=== PATIENT | male | born 1990 | race Caucasian/White ===

== ENCOUNTER 2023-10-26 13:28 | Inpatient (IN) | payer OTHER ==
[2023-10-26] MEDS ORDERED: NA CHLORIDE 0.9% 1,000 ML ONE (14:38)
[2023-10-26] MEDS ORDERED: FAMOTIDINE 20 MG/2 ML VIAL IV ONE (14:38)
--- NOTE | 2023-10-26 14:45 | RAD REPORT ---
EXAM DESCRIPTION: RAD - Chest Single View - 10/26/2023 2:28 pm CLINICAL HISTORY: COUGH Chest pain. COMPARISON: No comparisons FINDINGS: Portable technique limits examination quality. Mildly prominent interstitial lung markings are nonspecific. This can be seen in interstitial edema o r viral infection. Cardiac size is mildly prominent. No displaced fractures.
[2023-10-26 15:03] LABS: Absolute Lymphocytes (CBC) 1.9 K/uL (0.7-4.9); Hematocrit 26.2 % (39.6-49.0); Lymphocytes % 42.5 % (15.3-44.8); MPV 7.7 fL (7.6-11.3); Platelets 482 thou/uL (152-406); RBC Red Blood Cell Count 3.44 M/uL (4.33-5.43)
[2023-10-26 15:15] LABS: Protime INR 1.83
--- NOTE | 2023-10-26 15:17 | RAD REPORT ---
EXAM DESCRIPTION: CT - Head C Spine Cap Pedrito Koenig - 10/26/2023 2:58 pm CLINICAL HISTORY: Trauma, head and neck injury. Chest, abdomen and pelvis pain. abd pain , weakness;Weakness COMPARISON: Chest Single View dated 10/26/2023 TECHNIQUE: CT head without contrast. CT cervical spine without contrast with coronal and sagittal reformatted images. CT chest, abdomen and pelvis with IV contrast (approximately 100 mL nonionic IV contrast) with portillo l and sagittal reformatted images of the spine. All CT scans are performed using dose optimization technique as appropriate and may include automated exposure control or mA/KV adjustment according to patient size. FINDINGS: CT HEAD WITHOUT CONTRAST: No intracranial hemorrhage, hydrocephalus or extra-axial fluid collection. No areas of brain edema o r midline shift. The paranasal sinuses and mastoids are clear. The calvarium is intact. CT CERVICAL SPINE WITHOUT CONTRAST: No fracture or subluxation. The prevertebral soft tissues are normal in thickness. CT CHEST, ABDOMEN, PELVIS WITH CONTRAST: Ill-defined opacity measuring 3 cm in the right apex with mild adjacent pleural thickening.The lungs are otherwise clear.No pneumothorax or pericardial/pleural fluid. No evidence of intra-abdominal visceral injury, free fluid or free air. Cholelithiasis. No concerning pelvic findings. No fractures. IMPRESSION: Negative for acute traumatic findings. Ill-defined opacity is present in the right apex measuring 3 cm with adjacent pleural thickening. Thi s could be infectious or neoplastic in etiology. Advise follow-up CT chest in 3 months for monitoring .
[2023-10-26 15:21] LABS: Bilirubin Direct 0.2 mg/dL (0-0.2); Bilirubin Indirect, Calculated 0.5 mg/dL (0.2-0.8); Bilirubin Total 0.7 mg/dL (0.2-1.0); Magnesium 2.2 mg/dL (1.6-2.4); Potassium 3.9 mEq/L (3.5-5.1); Protein, Total 9.8 g/dL (6.4-8.2)
[2023-10-26] MEDS ORDERED: ONDANSETRON 4 MG/2 ML VIAL ONE (15:35)
[2023-10-26] MEDS ORDERED: MORPHINE 4 MG/ML SYR ONE (15:36)
[2023-10-26 15:42] LABS: Specific Gravity 1.023 (1.005-1.030); Urine Bacteria None Seen /HPF (<20); Urine Bilirubin NEGATIVE (Negative); Urine Blood 1+ (Negative); Urine Clarity Clear (Clear); Urine Color Yellow (Yellow); Urine Crystals Unidentified Few /HPF (None Seen); Urine Glucose NEGATIVE (Negative); Urine Mucus Slight /HPF (None Seen); Urine Protein TRACE (Negative); Urine Urobilinogen Normal (Normal)
[2023-10-26 16:02] LABS: SARS-COV-2 RT PCR NEGATIVE (NEGATIVE)
[2023-10-26] MEDS ORDERED: NA CHLORIDE 0.9% 100 ML ONE (16:31)
[2023-10-26] MEDS ORDERED: CEFEPIME 1 GM/VIAL ONE (16:31)
--- NOTE | 2023-10-26 16:36 | EDPHYS ---
Physician Documentation [facility] Name: Abel Maria Age: 33 yrs Sex: Male : 1990 Arrival Date: 10/26/2023 Time: 13:28 Bed 6 Private MD: ED Physician Castillo Camacho HPI: 10/26 16:23 This 33 yrs old Male presents to ER via EMS with complaints of GI Bleeding, adriel Syncope. 16:23 The patient presents to the emergency department with rectal bleeding, a small amount. adriel Onset: The symptoms/episode began/occurred today. Abdominal pain: none is appreciated. Historical: - Allergies: 14:26 No Known Allergies; nj1 - PMHx: 14:26 Congenital neutropenia; Sleep apnea; nj1 - Immunization history:: Client reports receiving the 2nd dose of the Covid vaccine. - Social history:: Smoking status: Patient denies any tobacco usage or history of. ROS: 16:24 Constitutional: Negative for fever, chills, and weight loss, Eyes: Negative for injury, adriel pain, redness, and discharge, ENT: Negative for injury, pain, and discharge, Neck: Negative for injury, pain, and swelling, Cardiovascular: Negative for chest pain, palpitations, and edema, Respiratory: Negative for shortness of breath, cough, wheezing, and pleuritic chest pain, Abdomen/GI: Negative for abdominal pain, nausea, vomiting, diarrhea, and constipation, : Negative for injury, bleeding, discharge, and swelling, Psych: Negative for depression, anxiety, suicide ideation, homicidal ideation, and hallucinations, Allergy/Immunology: Negative for hives, rash, and allergies, Endocrine: Negative for neck swelling, polydipsia, polyuria, polyphagia, and marked weight changes, Hematologic/Lymphatic: Negative for swollen nodes, abnormal bleeding, and unusual bruising, 16:24 Abdomen/GI: Negative for rectal bleeding, no black tarry, no brbpr, 16:24 Back: Positive for decreased range of motion, pain at rest, 16:24 MS/extremity: Positive for erythema, pain, of the left calf, 16:24 Skin: Positive for pallor, 16:24 Neuro: Positive for dizziness, near syncope, weakness, Exam: 16:24 Constitutional: This is a well developed, well nourished patient who is awake, alert, adriel and in no acute distress. Head/Face: Normocephalic, atraumatic. Eyes: Pupils equal round and reactive to light, extra-ocular motions intact. Lids and lashes normal. Conjunctiva and sclera are non-icteric and not injected. Cornea within normal limits. Periorbital areas with no swelling, redness, or edema. ENT: Nares patent. No nasal discharge, no septal abnormalities noted. Tympanic membranes are normal and external auditory canals are clear. Oropharynx with no redness, swelling, or masses, exudates, or evidence of obstruction, uvula midline. Mucous membranes moist. Neck: Trachea midline, no thyromegaly or masses palpated, and no cervical lymphadenopathy. Supple, full range of motion without nuchal rigidity, or vertebral point tenderness. No Meningismus. Chest/axilla: Normal chest wall appearance and motion. Nontender with no deformity. No lesions are appreciated. Cardiovascular: Regular rate and rhythm with a normal S1 and S2. No gallops, murmurs, or rubs. Normal PMI, no JVD. No pulse deficits. Respiratory: Lungs have equal breath sounds bilaterally, clear to auscultation and percussion. No rales, rhonchi or wheezes noted. No increased work of breathing, no retractions or nasal flaring. Abdomen/GI: Soft, non-tender, with normal bowel sounds. No distension or tympany. No guarding or rebound. No evidence of tenderness throughout. Back: No spinal tenderness. No costovertebral tenderness. Full range of motion. Male : Normal genitalia with no discharge or lesions. MS/ Extremity: Pulses equal, no cyanosis. Neurovascular intact. Full, normal range of motion. Psych: Awake, alert, with orientation to person, place and time. Behavior, mood, and affect are within normal limits. 16:24 ECG was reviewed by the Attending Physician. 16:24 Abdomen/GI: Palpation: abdomen is soft and non-tender, Rectal exam: rectal tone normal, hemorrhoid(s), are not appreciated, mass, is not appreciated, swelling, is not appreciated, tenderness, is not appreciated, fecal impaction, is not appreciated, none, no blood , no melena. Liver: is firm, Hernia: not appreciated, 16:24 Skin: Appearance: Color: pale, Temperature: normal temperature, Moisture: normal moisture, petechiae, not noted, ecchymosis, not noted, abscess, not appreciated, cellulitis, that is minimal, induration, that is mild is noted, located on the abdomen and left leg, 16:24 Neuro: Orientation: is normal, appropriate for stated age, no acute changes, Mentation: is normal, appropriate for stated age, no acute changes, Memory: is normal, appropriate for stated age, no acute changes, Cranial nerves: grossly normal, is grossly normal based on the patient's age, no acute changes, Cerebellar function: is grossly normal, is grossly normal based on the patient's age, no acute changes, Motor: is normal, is grossly normal based on the patient's age, no acute changes, moves all fours, strength is normal, Sensation: is normal, no obvious gross deficits, appropriate no acute changes, Gait: not tested. seizure activity, is not displayed by the patient, Vital Signs: 14:30 BP 106 / 66; Pulse 103; Resp 18; Temp 98.6; Pulse Ox 97% on R/A; Weight 113.4 kg; nj1 Height 5 ft. 2 in. ; Pain 9/10; 14:47 BP 120 / 73; Pulse 103; Resp 18; Pulse Ox 96% on R/A; ld1 15:04 BP 103 / 49 Supine; Pulse 95; ld1 15:06 BP 105 / 69 Sitting; Pulse 104; ld1 15:07 BP 124 / 93 Standing; Pulse 105; ld1 15:48 BP 134 / 57; Pulse 95; Resp 14; Pulse Ox 99% on R/A; ld1 16:42 Pain 7/10; nj1 16:42 BP 123 / 65; Pulse 93; Resp 18; Pulse Ox 97% on R/A; Pain 7/10; nj1 17:39 BP 121 / 52; Pulse 102; Resp 18; Pulse Ox 95% on R/A; Pain 7/10; nj1 18:11 BP 132 / 51; Pulse 88; Resp 18; Pulse Ox 97% on R/A; Pain 8/10; ld1 19:10 BP 118 / 67; Pulse 97; Pulse Ox 98% on R/A; kl 14:30 Body Mass Index 45.73 (113.40 kg, 157.48 cm) nj1 14:30 Pain Scale: Adult nj1 16:42 Pain Scale: Adult nj1 16:42 Pain Scale: Adult nj1 17:39 Pain Scale: Adult nj1 18:11 Pain Scale: Adult ld1 MDM: 13:36 Patient medically screened. [facility] 16:29 Differential diagnosis: cellulitis, insect bite, gastritis, hemorrhoids, hemorrhagic adriel shock, varices. Data reviewed: vital signs, nurses notes, lab test result(s), EKG, radiologic studies, CT scan, plain films. Consideration of Admission/Observation Patient was admitted/placed on observation. Escalation of care including admission/observation considered. I considered the following discharge prescriptions or medication management in the emergency department Medications were administered in the Emergency Department. See MAR. Independent interpretation of the following test(s) in the Emergency Department EKG: See my EKG interpretation above. Test considered but Not performed: MRI: no chest mri. Historians other than the Patient: EMS: well informed. pt well informed. Care significantly affected by the following chronic conditions: Obesity, neutropenia, wounds. Counseling: I had a detailed discussion with the patient and/or guardian regarding the historical points, exam findings, and any diagnostic results supporting the discharge/admit diagnosis, lab results, radiology results, the need for further work-up and treatment in the hospital. 10/26 13:39 Order name: Basic Metabolic Panel; Complete Time: 15:58 [facility] 10/26 13:39 Order name: CBC with Diff [facility] 10/26 13:39 Order name: LFT's; Complete Time: 15:58 [facility] 10/26 13:39 Order name: Magnesium; Complete Time: 15:58 [facility] 10/26 13:39 Order name: NT PRO-BNP; Complete Time: 15:58 [facility] 10/26 13:39 Order name: PT-INR; Complete Time: 15:58 [facility] 10/26 13:39 Order name: Troponin HS; Complete Time: 15:58 [facility] 10/26 13:39 Order name: Lipase; Complete Time: 15:58 [facility] 10/26 13:39 Order name: Blood Culture Adult (2) [facility] 10/26 13:39 Order name: Lactate w/ 2H reflex if indic.; Complete Time: 15:58 [facility] 10/26 13:39 Order name: Urinalysis w/ reflexes; Complete Time: 15:58 [facility] 10/26 13:39 Order name: COVID-19/FLU A+B/RSV; Complete Time: 16:13 [facility] 10/26 17:25 Order name: Manual Differential EDMS 10/26 17:29 Order name: Urinalysis w/ reflexes EDMS 10/26 17:29 Order name: Basic Metabolic Panel EDMS 10/26 17:29 Order name: Basic Metabolic Panel EDMS 10/26 17:29 Order name: Basic Metabolic Panel EDMS 10/26 17:29 Order name: Basic Metabolic Panel EDMS 10/26 17:29 Order name: CBC with Automated Diff EDMS 10/26 17:29 Order name: CBC with Automated Diff EDMS 10/26 17:29 Order name: CBC with Automated Diff EDMS 10/26 17:29 Order name: CBC with Automated Diff EDMS 10/26 17:29 Order name: Lipid Profile EDMS 10/26 17:29 Order name: Lipid Profile EDPA 10/26 13:39 Order name: XRAY Chest (1 view); Complete Time: 15:58 [facility] 10/26 13:39 Order name: CT Traumagram (Head C Spine CAP W Con); Complete Time: 15:58 [facility] 10/26 13:39 Order name: EKG; Complete Time: 13:40 [facility] 10/26 17:29 Order name: CONS Physician Consult EDPA 10/26 13:39 Order name: Cardiac monitoring; Complete Time: 15:15 [facility] 10/26 13:39 Order name: EKG - Nurse/Tech; Complete Time: 15:15 [facility] 10/26 13:39 Order name: IV Saline Lock; Complete Time: 14:43 [facility] 10/26 13:39 Order name: Labs collected and sent; Complete Time: 14:43 [facility] 10/26 13:39 Order name: O2 Per Protocol; Complete Time: 14:43 [facility] 10/26 13:39 Order name: O2 Sat Monitoring; Complete Time: 14:43 [facility] 10/26 13:39 Order name: Orthostatics; Complete Time: 15:15 [facility] EC:24 Rate is 98 beats/min. Rhythm is regular. QRS Kimball is Normal. NV interval is normal. QRS adriel interval is normal. QT interval is normal. No Q waves. T waves are Normal. No ST changes noted. Clinical impression: Normal ECG and No evidence of ischemia. Interpreted by me. Reviewed by me. Administered Medications: 14:43 Drug: NS 0.9% IV 1000 ml IV at 1 bolus Per protocol; 1000 mL bolus Route: IV; Rate: 1 ld1 bolus; Site: right forearm; 16:42 Follow up: IV Status: Completed infusion; IV Intake: 1000ml nj1 14:43 Drug: Famotidine IVP 20 mg IVP once; dilute with 10 mL 0.9% NaCl; give over 2 minutes ld1 Route: IVP; Site: right forearm; 16:42 Follow up: Response: No adverse reaction nj1 15:42 Drug: Ondansetron IVP 4 mg IVP once; over 2 minutes Route: IVP; Site: right forearm; ld1 16:42 Follow up: Response: No adverse reaction nj1 15:42 Drug: morphine IVP or IV 4 mg IVP once over 4 mins; Verbal order per Dr. Camacho ld1 Route: IVP; Infused Over: 4 mins; Site: right forearm; 16:42 Follow up: Pain 7/10 Adult; Response: No adverse reaction nj1 16:42 Drug: Cefepime IVPB 1 grams IVPB at 200 ml/hr once over 30 mins; (mix in NS 100 mL) nj1 Route: IVPB; Rate: 200 ml/hr; Infused Over: 30 mins; Site: right forearm; 17:12 Follow up: Response: No adverse reaction; IV Status: Completed infusion; IV Intake: nj1 100ml 17:19 Drug: vancoMYCIN IVPB 1.5 grams IVPB at calculated rate once Route: IVPB; Rate: ld1 calculated rate; Site: right forearm; Disposition Summary: 10/26/23 16:35 Hospitalization Ordered Notes: Hospitalization Status: Inpatient Admission adriel Provider: Osbaldo Souza cha Location: Telemetry/MedSurg (Inpatient) adriel Condition: Fair adriel Problem: new adriel Symptoms: have improved adriel Bed/Room Type: Standard adriel Room Assignment: 212(10/26/23 17:34) bd Diagnosis - Neutropenia, unspecified adriel - Weakness adriel - GI Bleed/ Gastrointestinal hemorrhage, unspecified - lower , stable adriel - Syncope Near - twice adriel - Obesity, unspecified adriel Forms: - Medication Reconciliation Form adriel - SBAR form adriel - Leadership Thank You Letter adriel Signatures: Dispatcher [employer] EDMS Melissa Bartholomew Corey, MD MD cha Sims, Lauren, RN RN ld1 Madyson Ni RN RN nj1 Corrections: (The following items were deleted from the chart) 17:34 16:35 adriel bd
--- NOTE | 2023-10-26 16:36 | ER ---
Nurse's Notes [facility] Name: Abel Maria Age: 33 yrs Sex: Male : 1990 Arrival Date: 10/26/2023 Time: 13:28 Bed 6 Private MD: Diagnosis: Neutropenia, unspecified;Weakness;GI Bleed/ Gastrointestinal hemorrhage, unspecified-lower , stable;Syncope Near- twice;Obesity, unspecified Presentation: 10/26 14:11 Chief complaint: EMS states: Syncopal episodes x2, from home, complains of pain all nj1 over, pt states he noted blood in his stool this morning. Unknown if LOC. 14:11 Coronavirus screen: Vaccine status: Patient reports receiving the 2nd dose of the covid nj1 vaccine. Ebola Screen: Patient denies travel to an Ebola-affected area in the 21 days before illness onset. Risk Assessment: Do you want to hurt yourself or someone else? Patient reports no desire to harm self or others. Onset of symptoms was October 26, 2023. 14:11 Method Of Arrival: EMS: [facility] 14:11 Acuity: RICH 3 nj1 14:30 Initial Sepsis Screen: Does the patient meet any 2 criteria? HR > 90 bpm. No. Patient's nj initial sepsis screen is negative. Does the patient have a suspected source of infection? Yes: Skin breakdown/wound. Historical: - Allergies: 14:26 No Known Allergies; nj1 - PMHx: 14:26 Congenital neutropenia; Sleep apnea; nj1 - Immunization history:: Client reports receiving the 2nd dose of the Covid vaccine. - Social history:: Smoking status: Patient denies any tobacco usage or history of. Screenin:47 [facility] ED Fall Risk Assessment (Adult) History of falling in the last 3 months, ld1 including since admission No falls in past 3 months (0 pts). Abuse screen: Denies threats or abuse. Denies injuries from another. Nutritional screening: No deficits noted. Tuberculosis screening: No symptoms or risk factors identified. Assessment: 14:47 General: Appears in no apparent distress. comfortable, Behavior is calm, cooperative, ld1 appropriate for age. Pain: Denies pain. Neuro: Level of Consciousness is awake, alert, obeys commands, Oriented to person, place, time, situation. Neuro: Reports dizziness. Cardiovascular: Capillary refill < 3 seconds Patient's skin is warm and dry. Respiratory: Airway is patent Respiratory effort is even, unlabored. GI: Abdomen is round non-distended, Reports bloody stool. : No signs and/or symptoms were reported regarding the genitourinary system. EENT: No signs and/or symptoms were reported regarding the EENT system. Derm: No signs and/or symptoms reported regarding the dermatologic system. Musculoskeletal: No signs and/or symptoms reported regarding the musculoskeletal system. 16:40 Reassessment: Patient appears in no apparent distress at this time. Patient and/or nj1 family updated on plan of care and expected duration. Pain level reassessed. Patient is alert, oriented x 3, equal unlabored respirations, skin warm/dry/pink. 17:40 Reassessment: Patient appears in no apparent distress at this time. Patient and/or nj1 family updated on plan of care and expected duration. Pain level reassessed. Patient is alert, oriented x 3, equal unlabored respirations, skin warm/dry/pink. 17:41 Reassessment: Unsuccessful attempt to call report. No answer. [facility] 18:11 Reassessment: Patient appears in no apparent distress at this time. No changes from 1 previously documented assessment. c/o pain all over. 18:20 Reassessment: Unsuccessful attempt to call report at this time. Nurse "busy", will call [facility] back for report. 19:47 Reassessment: report given to SONG Navarro. [facility] 19:48 General: Appears comfortable, Behavior is calm, cooperative. Pain: Complains of pain in ha1 generalized Pain does not radiate. Pain currently is 4 out of 10 on a pain scale. Neuro: Level of Consciousness is awake, alert, obeys commands, Oriented to person, place, time, situation. Respiratory: Airway is patent Respiratory effort is even, unlabored, Respiratory pattern is regular, symmetrical. Vital Signs: 14:30 BP 106 / 66; Pulse 103; Resp 18; Temp 98.6; Pulse Ox 97% on R/A; Weight 113.4 kg; nj1 Height 5 ft. 2 in. ; Pain 9/10; 14:47 BP 120 / 73; Pulse 103; Resp 18; Pulse Ox 96% on R/A; ld1 15:04 BP 103 / 49 Supine; Pulse 95; ld1 15:06 BP 105 / 69 Sitting; Pulse 104; ld1 15:07 BP 124 / 93 Standing; Pulse 105; ld1 15:48 BP 134 / 57; Pulse 95; Resp 14; Pulse Ox 99% on R/A; ld1 16:42 Pain 7/10; nj1 16:42 BP 123 / 65; Pulse 93; Resp 18; Pulse Ox 97% on R/A; Pain 7/10; nj1 17:39 BP 121 / 52; Pulse 102; Resp 18; Pulse Ox 95% on R/A; Pain 7/10; nj1 18:11 BP 132 / 51; Pulse 88; Resp 18; Pulse Ox 97% on R/A; Pain 8/10; ld1 19:10 BP 118 / 67; Pulse 97; Pulse Ox 98% on R/A; kl 14:30 Body Mass Index 45.73 (113.40 kg, 157.48 cm) nj1 14:30 Pain Scale: Adult nj1 16:42 Pain Scale: Adult nj1 16:42 Pain Scale: Adult nj1 17:39 Pain Scale: Adult nj1 18:11 Pain Scale: Adult ld1 ED Course: 13:32 Patient arrived in ED. bd 13:36 Castillo Camacho MD is Attending Physician. adriel 14:25 Inserted saline lock: 20 gauge in right forearm, using aseptic technique. Blood zm collected. 14:25 First set of blood cultures drawn by ct. zm 14:26 Triage completed. nj1 14:30 XRAY Chest (1 view) In Process Unspecified. EDMS 14:31 Arm band placed on. nj1 14:40 Second set of blood cultures drawn by ct. zm 14:40 Initial lab(s) drawn, by ct, sent to lab. zm 14:43 Lactate w/ 2H reflex if indic. Sent. ld1 14:43 Blood Culture Adult (2) Sent. ld1 14:47 Patient has correct armband on for positive identification. Placed in gown. Bed in low ld1 position. Call light in reach. Side rails up X2. card writer hand on. Pulse ox on. NIBP on. Door closed. Noise minimized. Warm blanket given. 14:47 No provider procedures requiring assistance completed. ld1 15:00 CT Traumagram (Head C Spine CAP W Con) In Process Unspecified. EDMS 15:14 COVID-19/FLU A+B/RSV Sent. ld1 15:15 Blood Culture Adult (2) Sent. ld1 15:59 Madyson Ni, SONG is Primary Nurse. nj1 16:34 Osbaldo Souza MD is Hospitalizing Provider. adriel Administered Medications: 14:43 Drug: NS 0.9% IV 1000 ml IV at 1 bolus Per protocol; 1000 mL bolus Route: IV; Rate: 1 ld1 bolus; Site: right forearm; 16:42 Follow up: IV Status: Completed infusion; IV Intake: 1000ml nj1 14:43 Drug: Famotidine IVP 20 mg IVP once; dilute with 10 mL 0.9% NaCl; give over 2 minutes ld1 Route: IVP; Site: right forearm; 16:42 Follow up: Response: No adverse reaction nj1 15:42 Drug: Ondansetron IVP 4 mg IVP once; over 2 minutes Route: IVP; Site: right forearm; ld1 16:42 Follow up: Response: No adverse reaction nj1 15:42 Drug: morphine IVP or IV 4 mg IVP once over 4 mins; Verbal order per Dr. Camacho ld1 Route: IVP; Infused Over: 4 mins; Site: right forearm; 16:42 Follow up: Pain 7/10 Adult; Response: No adverse reaction nj1 16:42 Drug: Cefepime IVPB 1 grams IVPB at 200 ml/hr once over 30 mins; (mix in NS 100 mL) nj1 Route: IVPB; Rate: 200 ml/hr; Infused Over: 30 mins; Site: right forearm; 17:12 Follow up: Response: No adverse reaction; IV Status: Completed infusion; IV Intake: nj1 100ml 17:19 Drug: vancoMYCIN IVPB 1.5 grams IVPB at calculated rate once Route: IVPB; Rate: ld1 calculated rate; Site: right forearm; Medication: 19:49 VIS not applicable for this client. ha1 Intake: 16:42 IV: 1000ml; Total: 1000ml. nj1 17:12 IV: 100ml; Total: 1100ml. nj1 Outcome: 16:35 Decision to Hospitalize by Provider. adriel 21:03 Patient left the ED. kl Signatures: Dispatcher [employer] EDMS Melissa Bartholomew Kimberly, RN RN kl Anderson, Corey, MD MD cha Sims, Lauren, RN RN ld1 Kanika Frederick Heidy RN RN ha1 Madyson Ni RN RN nj1 Corrections: (The following items were deleted from the chart) 17:41 16:42 BP 123 / 65; Pulse 93bpm; Resp 18bpm; Pulse Ox 97% RA; ld1 nj1
[2023-10-26] MEDS ORDERED: VANCOMYCIN 1.5 GM in NA CHLORIDE 0.9% 500 ML IVPB ONE (16:45)
[2023-10-26] MEDS ORDERED: ACETAMINOPHEN 500 MG TAB PO PRN (17:22)
[2023-10-26 17:24] LABS: Platelet Estimate INCR
[2023-10-26 17:25] LABS: Anisocytosis 1+; Blood Morphology Comment NOTED (NOT SEEN); Poikilocytosis 1+
--- NOTE | 2023-10-26 17:33 | P.HP ---
Certification for Inpatient With expected LOS: <2 Midnights Patient will require the following post-hospital care: None Practitioner: I am a practitioner with admitting privileges, knowledge of patient current condition, hospital course, and medical plan of care. Services: Services provided to patient in accordance with Admission requirements found in Title 42 Section 412.3 of the Code of Federal Regulations <Josef Rubi - Last Filed: 10/26/23 18:06> Patient History Date of Service: 10/26/23 Reason for admission: neutropenia, GI bleeding, Non healing wounds on EDWIN and a bdominal wall History of Present Illness: This 33 yrs old Male with primary medical history of congenital neutropenia, anemia, nonhealing wounds on the right abdominal wall and left lower extremity presents to ER via EMS with complaints of GI Bleeding, Patient patient reports she had small amount of rectal bleeding this morning twice, associated with near fall in the bathroom denies any traumas. Patient denies chest pain, shortness of breath, abdominal pain, nausea or vomiting. Patient has multiple nonhealing ulcers on the abdominal wall on the right side, nonhealing left lower extremity large wound ED course Vital Signs: BP 106 / 66; Pulse 103; Resp 18; Temp 98.6; Pulse Ox 97% on R/A; Weight 113.4 kg; Height 5 ft. 2 in. ; Pain 9/10 EKG normal sinus rhythm Initial labs low WBC 4.4, anemia hemoglobin 8.8 over hematocrit 26.2, INR 1.83, urine analysis shows some blood. Admitting the patient with a diagnosis of anemia, GI bleeding, neutropenia, nonhealing cellulitis of abdominal wall and the left lower extremity. - Past Medical/Surgical History -: Neutropenia -: Anemia -: Non healing wounds on the abdominal wall and the LLE -: Debriedement of the wounds on the left leg - Social History Smoking Status: Former smoker Smoking therapy provided: Yes Patient receptive to therapy: Yes Alcohol use: No CD- Drugs: No Caffeine use: Yes <Josef Rubi - Last Filed: 10/26/23 18:06> Date of Service: 10/26/23 <Osbaldo Souza - Last Filed: 10/26/23 18:54> Allergies No Known Allergies Allergy (Unverified 10/26/23 16:35) Review of Systems 10-point ROS is otherwise unremarkable <Josef Rubi - Last Filed: 10/26/23 18:06> Physical Examination - Physical Exam General: Alert, Oriented x3 HEENT: Atraumatic, Normocephalic Neck: Supple, 2+ carotid pulse no bruit Respiratory: Clear to auscultation bilaterally, Normal air movement Cardiovascular: No edema, Normal pulses, Regular rate/rhythm Capillary refill: <2 Seconds Gastrointestinal: Normal bowel sounds, Soft and benign Musculoskeletal: No clubbing, No swelling Integumentary: Other (non healing ulcers x on the right abdominal wall and LLE) Neurological: Normal gait, Normal speech, Normal affect - Studies Laboratory Data (last 24 hrs) 10/26/23 10/26/23 10/26/23 14:40 14:40 14:40 WBC 4.40 Hgb 8.8 L Hct 26.2 L Plt Count 482 H PT 19.8 H INR 1.83 Sodium 131 L Potassium 3.9 BUN 16 Creatinine 1.11 Glucose 115 H Magnesium 2.2 Total Bilirubin 0.7 AST 15 ALT 19 Alkaline Phosphatase 48 Lipase 18 <Miles Rubiindu - Last Filed: 10/26/23 18:06> - Studies Laboratory Data (last 24 hrs) 10/26/23 10/26/23 10/26/23 14:40 14:40 14:40 WBC 4.40 Hgb 8.8 L Hct 26.2 L Plt Count 482 H PT 19.8 H INR 1.83 Sodium 131 L Potassium 3.9 BUN 16 Creatinine 1.11 Glucose 115 H Magnesium 2.2 Total Bilirubin 0.7 AST 15 ALT 19 Alkaline Phosphatase 48 Lipase 18 <Osbaldo Souza - Last Filed: 10/26/23 18:54> Assessment and Plan - Problems (Diagnosis) (1) Neutropenia Current Visit: Yes Status: Chronic (2) Weakness Current Visit: Yes Status: Acute (3) GI bleeding Current Visit: Yes Status: Acute Qualifiers: GI bleed type/associated pathology: unspecified gastrointestinal hemorrhage type Qualified Code(s): K92.2 - Gastrointestinal hemorrhage, unspecified (4) Syncope, near Current Visit: Yes Status: Acute (5) Abdominal wall cellulitis Current Visit: Yes Status: Acute (6) Cellulitis of left lower extremity Current Visit: Yes Status: Acute - Plan * Patient presented with GI bleeding small amount associated with the near syncope * hemoglobin 8.8 over hematocrit 26.2, INR 1.83 * BP 106 / 66; Pulse 103; Resp 18; Temp 98.6; Pulse Ox 97% on R/A; * admitting the patient in the hospital * Will continue to monitor CBC * Consult to GI Dr. Solis * Chronic cellulitis on the abdominal wall and left lower extremitiesworsening, IV antibiotic vancomycin and cefepime started, IV fluids , * Consult to ID and wound care Dr. Solis * Close monitoring of vital signs, replete electrolyte * Reconciled home medication and start up as appropriate * CODE STATUS full code * Diet to regular * DVT prophylaxisLovenox . Discharge Plan: Home Plan to discharge in: 48 Hours - Advance Directives Does patient have a Living Will: No Does patient have a Durable POA for Healthcare: No - Code Status/Comfort Care Code Status Assessed: Yes (full code) Code Status: Full Code Physician Review: Patient Assessed, Agree with Above Assessment and Plan Critical Care: No Time Spent Managing Pts Care (In Minutes): 55 (minutes) <Josef Rubi - Last Filed: 10/26/23 18:06> - Plan Pt seen and examined. I agree with the note by the SENIOR CLINICAL RESEARCH SCIENTIST. Pt is a 33 yo male with past medical history of Neutropenia and chronic leg and abdominal wound who presents with GI bleed and near syncope. Pt reports falling at home but he did not hit his head. On admission, Lab studies show Cr 1.11, WBC 4.4, Alb 2.0CT chest shows 3 cm opacity in the right apex. At bedside, pt is in NAD. He has a left calf wound and RLQ abdominal wall wound. Pt gets wound care at home. A/P Syncope: Will check orthostatic vital signs, Echo and continue telemetry GI bleed: Pt saw blood when he wiped himself. Will follow up FOBT. If positive, will consult GI. Hyponatremia: Na is 131. Will continue IVF and trend NA. Likely due to hypovolemia. 3cm right apex opacity: Will follow up CT chest in 3 months. Will continue iv abx. Leg wound and abdominal wound: Will continue iv vanc and cefepime. Will follow up blood cx. Will continue wound culture. Neutropenia: WBC is 4.4. His baseline is about 7. Will consult Hem/Oncology. Pt has not seen hematolgy in a while. <Osbaldo Souza - Last Filed: 10/26/23 18:54>
[2023-10-26] MEDS ORDERED: VANCOMYCIN 1 GM in NA CHLORIDE 0.9% 250 ML IVPB SCH (18:00)
[2023-10-26] MEDS ORDERED: VANCOMYCIN 500 MG in NA CHLORIDE 0.9% 100 ML IVPB ONE (19:00)
[2023-10-26] MEDS: MORPHINE 2 MG/ML SYR IV PRN (21:13)
[2023-10-26] MEDS: CEFEPIME 1 GM in NA CHLORIDE 0.9% 100 ML IV SCH (22:13)
[2023-10-26] MEDS: NA CHLORIDE 0.9% 1,000 ML IV SCH (22:14)
[2023-10-26 22:58] VITALS: BMI 45.7
[2023-10-27] MEDS: MORPHINE 2 MG/ML SYR IV PRN ×6 (01:12→21:39)
[2023-10-27] MEDS: NA CHLORIDE 0.9% 1,000 ML IV SCH ×3 (04:00→20:21)
[2023-10-27 04:19] LABS: Absolute Lymphocytes (CBC) 1.7 K/uL (0.7-4.9); Hematocrit 24.1 % (39.6-49.0); Lymphocytes % 43.3 % (15.3-44.8); MCV 76.5 fL (80-100); Platelets 421 thou/uL (152-406); RBC Red Blood Cell Count 3.15 M/uL (4.33-5.43)
--- NOTE | 2023-10-27 09:02 | P.CNS ---
Date of Consult: 10/27/23 Reason for Consult: nonhealing wound abdominal wall, cellulitis Chief Complaint: neutropenia, GI bleeding, Non healing wounds on EDWIN and abdominal wall History of Present Illness: Patient is a 33 yo male with a past medical history of congenital neutropenia, anemia and chronic non-healing wound of left lower leg who presented to the ED with complaints of bloody stools and near-fall episode at home. Patient was noted to have chronic left lower leg non-healing wound which has been present since May 2022. He reports he has had 6 debridements done over the past 1.5 years on this wound with minimal to no improvement. Patient states the debridements have been performed at varying [facility] and [facility] locations in [place] and surrounding areas. Infectious disease was consulted for cellulitis of left lower extremity. Allergies No Known Allergies Allergy (Unverified 10/26/23 16:35) Home medications list reviewed: Yes Home Medications: Gabapentin 300 mg PO TID 10/27/23 - Past Medical/Surgical History Diabetic: No -: Neutropenia -: Anemia -: Non healing wounds on the abdominal wall and the LLE -: Debriedement of the wounds on the left leg - Social History Alcohol use: No CD- Drugs: No Caffeine use: Yes Place of Residence: Home Review of Systems 10-point ROS is otherwise unremarkable General: Weakness Integumentary: As per HPI Physical Examination Temp Pulse Resp BP Pulse Ox 99.5 F 99 H 16 119/51 L 92 10/27/23 08:00 10/27/23 08:00 10/27/23 08:00 10/27/23 08:00 10/27/23 08:00 General: Alert, In no apparent distress, Oriented x3 HEENT: Atraumatic, Normocephalic Neck: Supple Respiratory: Clear to auscultation bilaterally, Normal air movement Cardiovascular: Regular rate/rhythm Gastrointestinal: Normal bowel sounds, Soft and benign Integumentary: Skin lesion (under abdominal fold and right abdominal wall), Other (chronic non-healing wound of left lower leg since May 2022) Neurological: Normal speech, Normal tone, Normal affect Laboratory Data -Reviewed Microbiology data -Reviewed Imagings Data: -Reviewed Conclusions/Impression: Problem list Chronic non-healing wound of left lower extremity cellulitis left lower extremity Neutropenia Anemia Obstructive Sleep Apnea Obesity Hyponatremia Hypocalcemia Cellulitis Left Lower Extremity with chronic non-healing wound Right abdominal wall wound - Patient reports wound of LLE since May 2022. He reportedly has undergone 6 debridements over the past 1.5 years, primarily at various [facility] and [facility] locations. - Currently on Cefepime and Vancomycin (started 10/26) - General surgery consulted for possible debridement, recommendations appreciated. Blood cultures 10/26: pending Afebrile. Recommendations - Continue Cefepime and Vancomycin for now - Monitor WBC and fever trends - Wound care per Dr. Solorio/wound care team Pending possible debridement tomorrow. Obtain wound cultures. Case discussed with Talon Post
[2023-10-27] MEDS: CEFEPIME 1 GM in NA CHLORIDE 0.9% 100 ML IV SCH ×2 (09:30→20:21)
[2023-10-27] MEDS: ENOXAPARIN 40 MG/0.4 ML SQ SCH (09:30)
--- NOTE | 2023-10-27 10:34 | P.PN ---
Subjective Date of Service: 10/27/23 Chief Complaint: neutropenia, GI bleeding, Non healing wounds on EDWIN and abdominal wall Subjective: No new changes, Improving, Doing well Patient is alert and orientedx3 Breathing normally at room air NAD Vitals atable Pt used BIPAP at night Reporting Pain is not controlled on the analgesics Review of Systems 10-point ROS is otherwise unremarkable Physical Examination - Vital Signs Temperature: 99.5 F Blood Pressure: 119/51 Pulse: 99 Respirations: 16 Pulse Ox (%): 92 - Physical Exam General: Alert, In no apparent distress, Oriented x3 HEENT: Atraumatic, Normocephalic Neck: Supple, 2+ carotid pulse no bruit Respiratory: Clear to auscultation bilaterally, Normal air movement Cardiovascular: No edema, Normal pulses, Normal S1 S2 Capillary refill: <2 Seconds Gastrointestinal: Normal bowel sounds, Soft and benign, Non-distended Musculoskeletal: No clubbing, No swelling Integumentary: No rashes, No breakdown, Skin lesion, Erythema, Other (non- healing ulcers on the right lower abdominal wall, and LLE) Neurological: Normal gait, Normal speech, Normal strength at 5/5 x4 extr - Studies Laboratory Data (last 24 hrs) 10/26/23 10/26/23 10/26/23 14:40 14:40 14:40 WBC 4.40 Hgb 8.8 L Hct 26.2 L Plt Count 482 H PT 19.8 H INR 1.83 Sodium 131 L Potassium 3.9 BUN 16 Creatinine 1.11 Glucose 115 H Magnesium 2.2 Total Bilirubin 0.7 AST 15 ALT 19 Alkaline Phosphatase 48 Lipase 18 Assessment And Plan - Current Problems (Diagnosis) (1) Neutropenia Current Visit: Yes Status: Chronic (2) Weakness Current Visit: Yes Status: Acute (3) GI bleeding Current Visit: Yes Status: Acute Qualifiers: GI bleed type/associated pathology: unspecified gastrointestinal hemorrhage type Qualified Code(s): K92.2 - Gastrointestinal hemorrhage, unspecified (4) Syncope, near Current Visit: Yes Status: Acute (5) Abdominal wall cellulitis Current Visit: Yes Status: Acute (6) Cellulitis of left lower extremity Current Visit: Yes Status: Acute - Plan * Patient presented with GI bleeding small amount associated with the near syncope * hemoglobin 8.8 over hematocrit 26.2, INR 1.83 * BP 106 / 66; Pulse 103; Resp 18; Temp 98.6; Pulse Ox 97% on R/A; * admitting the patient in the hospital * Will continue to monitor CBC * Consult to GI Dr. Solis * Chronic cellulitis on the abdominal wall and left lower extremitiesworsening, IV antibiotic vancomycin and cefepime started, IV fluids , * Consult to ID and wound care Dr. Solis * Consulted Dr. Solorio Surgeon for potential debridement of the LLE wounds * Close monitoring of vital signs, replete electrolyte * Reconciled home medication and start up as appropriate * CODE STATUS full code * Diet to regular * DVT prophylaxisLovenox . Discharge Plan: Home Plan to discharge in: 24 Hours - Code Status/Comfort Care Code Status Assessed: Yes (full code) Code Status: Full Code Physician Review: Patient Assessed, Agree with Above Assessment and Plan Critical Care: No Time Spent Managing PTS Care (In Minutes): 35 (minutes)
[2023-10-27] MEDS ORDERED: INFLUENZA VACCINE (for 6+ mo) 0.5 ML DOSE IMVAC ONE (11:00)
--- NOTE | 2023-10-27 11:49 | EKG ---
Test Date: 2023-10-26 Test Time: 15:05:11 Barge Master: Fawn OLSEN MEASUREMENT RESULTS: Intervals: Rate: 98 NC: 142 QRSD: 82 QT: 344 QTc: 439 [place]: P: 60 NC: 142 QRS: 65 T: 44 INTERPRETIVE STATEMENTS: Normal sinus rhythm Normal ECG No previous ECG available for comparison Electronically Signed On 10-27-23 11:46:27 PERCH MACHINE INSPECTOR by Reno Mendiola
[2023-10-27] MEDS ORDERED: VANCOMYCIN 2 GM in NA CHLORIDE 0.9% 500 ML IVPB SCH (12:00)
[2023-10-27] MEDS: HYDROCODONE/APAP 5/325 MG TAB PO PRN ×2 (14:39→20:21)
[2023-10-28] MEDS: HYDROCODONE/APAP 5/325 MG TAB PO PRN (01:35)
[2023-10-28] MEDS: MORPHINE 2 MG/ML SYR IV PRN ×5 (02:46→21:17)
[2023-10-28 03:59] LABS: Absolute Lymphocytes (CBC) 1.9 K/uL (0.7-4.9); Hematocrit 23.8 % (39.6-49.0); Lymphocytes % 47.1 % (15.3-44.8); MCV 76.7 fL (80-100); MPV 8.2 fL (7.6-11.3); Platelets 368 thou/uL (152-406)
[2023-10-28 04:17] LABS: Potassium 3.9 mEq/L (3.5-5.1)
[2023-10-28] MEDS: NA CHLORIDE 0.9% 1,000 ML IV SCH ×2 (06:25→19:02)
[2023-10-28] MEDS: CEFEPIME 1 GM in NA CHLORIDE 0.9% 100 ML IV SCH (08:46)
[2023-10-28] MEDS: ENOXAPARIN 40 MG/0.4 ML SQ SCH (08:46)
--- NOTE | 2023-10-28 08:57 | P.PN ---
Date of Service: 10/28/23 Chief Complaint: neutropenia, GI bleeding, Non healing wounds on EDWIN and abdominal wall Subjective: In no apparent distress. No acute events overnight + LLE pain Scheduled for debridement today. Physical Examination Temp Pulse Resp BP Pulse Ox 98.1 F 92 H 16 130/63 92 10/28/23 08:00 10/28/23 08:00 10/28/23 08:00 10/28/23 08:00 10/28/23 08:00 General: Alert, In no apparent distress, Oriented x3 HEENT: Atraumatic, Normocephalic Neck: Supple Respiratory: Clear to auscultation bilaterally, Normal air movement Cardiovascular: Regular rate/rhythm Gastrointestinal: Normal bowel sounds, Soft and benign. Obese. Integumentary: Skin lesion under abdominal fold and right abdominal wall. Chronic non-healing wound of left lower leg since May 2022 Neurological: Normal speech, Normal tone, Normal affect Laboratory Data -Reviewed Microbiology data -Reviewed Imagings Data: -Reviewed Medication List: Reviewed Assessment and Plan Problem list Chronic non-healing wound of left lower extremity cellulitis left lower extremity Neutropenia Anemia Obstructive Sleep Apnea Obesity Hyponatremia Hypocalcemia Cellulitis Left Lower Extremity with chronic non-healing wound Right abdominal wall wound - Patient reports wound of LLE since May 2022. He reportedly has undergone 6 debridements over the past 1.5 years, primarily at various [facility] and [facility] locations. - Currently on Cefepime and Vancomycin (started 10/26) - General surgery consulted. Pending debridement. Blood cultures 10/26: no growth to date Afebrile. Recommendations - Continue Cefepime and Vancomycin for now Patient is scheduled for debridement today. - Monitor WBC and fever trends - Wound care per Dr. Solorio/wound care team - Pending possible debridement tomorrow. Obtain wound cultures. Plan of care discussed with patient at bedside. Case discussed with Talon Post
--- NOTE | 2023-10-28 09:44 | P.PN ---
Subjective Date of Service: 10/28/23 Chief Complaint: neutropenia, GI bleeding, Non healing wounds on EDWIN and abdominal wall Subjective: No new changes, Improving, Doing well Patient is alert and orientedx3 Breathing normally at room air NAD Vitals atable Pt used BIPAP at night Reporting Pain is not controlled on the analgesics For Debridement of LLE wound by Dr. Solorio. <RubiJosef chang - Last Filed: 10/28/23 09:37> Date of Service: 10/31/23 <Osbaldo Souza - Last Filed: 10/31/23 17:18> Review of Systems 10-point ROS is otherwise unremarkable <RubiJosef chang - Last Filed: 10/28/23 09:37> Physical Examination - Vital Signs Temperature: 98.1 F Blood Pressure: 130/63 Pulse: 92 Respirations: 16 Pulse Ox (%): 92 - Physical Exam General: Alert, Oriented x3 HEENT: Atraumatic, Normocephalic Neck: Supple, 2+ carotid pulse no bruit Respiratory: Clear to auscultation bilaterally, Diminished Cardiovascular: No edema, Regular rate/rhythm Capillary refill: <2 Seconds Gastrointestinal: Normal bowel sounds, Soft and benign Musculoskeletal: No clubbing, No swelling Integumentary: No ulcers, Other (chronic non healing wounds on the left lower extremity and right abdominal wall.) Neurological: Normal speech, Normal tone, Normal affect <RubiJosef chang - Last Filed: 10/28/23 09:37> - Studies Microbiology Data (last 24 hrs): 10/26/23 14:40 Blood - Blood Aerobic Blood Culture - Final No growth in 5 days. 10/26/23 14:40 Blood - Blood Anaerobic Blood Culture - Final No growth in 5 days. 10/26/23 14:25 Blood - Blood Aerobic Blood Culture - Final No growth in 5 days. 10/26/23 14:25 Blood - Blood Anaerobic Blood Culture - Final No growth in 5 days. <Osbaldo Souza - Last Filed: 10/31/23 17:18> Assessment And Plan - Current Problems (Diagnosis) (1) Neutropenia Status: Chronic (2) Weakness Status: Acute (3) GI bleeding Status: Acute Qualifiers: GI bleed type/associated pathology: unspecified gastrointestinal hemorrhage type Qualified Code(s): K92.2 - Gastrointestinal hemorrhage, unspecified (4) Syncope, near Status: Acute (5) Abdominal wall cellulitis Status: Acute (6) Cellulitis of left lower extremity Status: Acute - Plan * Patient presented with GI bleeding small amount associated with the near syncope- resolved, no more GI bleeding at this time * Patient will have to see GI doctor as outpatient for follow ups and colonoscipy * hemoglobin 7.8 over hematocrit 23.8, Consulted Dr. Chanel (oil well drilling manager) * Vitals stable, pain is controlled better * Will continue to monitor CBC * Continue GI Dr. Solis * Chronic cellulitis on the abdominal wall and left lower extremitiesworsening, IV antibiotic vancomycin and cefepime started, IV fluids , * Continue ID and wound care Dr. Solis * Surgeon Dr. Solorio Surgeon. Patient is scheduled for debridement of the LLE wound today * Close monitoring of vital signs, replete electrolyte * Reconciled home medication and start up as appropriate * Continue Cefepime and Vancomycin for now, Monitor WBC and fever trends, Wound care per Dr. Solorio/wound care tea * Plan of care , todays lab results discussed with patient at bedside. * CODE STATUS full code * Diet to regular * DVT prophylaxisLovenox . Discharge Plan: Home Plan to discharge in: 48 Hours - Code Status/Comfort Care Code Status Assessed: Yes (full code) Code Status: Full Code Physician Review: Patient Assessed, Agree with Above Assessment and Plan Critical Care: No Time Spent Managing PTS Care (In Minutes): 35 (minutes) <Josef Rubi - Last Filed: 10/28/23 09:37> - Plan Pt seen and examined. I agree with the note by the MUTUEL CASHIER. <Osbaldo Souza - Last Filed: 10/31/23 17:18>
[2023-10-28] MEDS: VANCOMYCIN 2 GM in NA CHLORIDE 0.9% 500 ML IVPB SCH ×2 (10:39→21:17)
[2023-10-28] MEDS ORDERED: propofoL 200 MG/20 ML VIAL IV ONE (16:04)
[2023-10-28] MEDS ORDERED: FENTANYL CITR 250 MCG/5 ML ONE (16:04)
[2023-10-28] MEDS ORDERED: MIDAZOLAM HCL 2 MG/2 ML INJ ONE (16:04)
[2023-10-28] MEDS: CEFEPIME 2 GM in NA CHLORIDE 0.9% 100 ML IV SCH (17:00)
--- NOTE | 2023-10-28 17:03 | P.OP ---
Preoperative diagnosis: LEFT lower leg - calf necrotic wound Postoperative diagnosis: LEFT lower leg - calf necrotic wound Primary procedure: Debridement of LEFT lower leg - calf necrotic wound Secondary procedure: Pulse Lavage of LEFT lower leg - calf necrotic wound Anesthesia: GETA + Local Estimated blood loss: 70cc Specimen: debridement tissue Findings: ~ 25cm x 15cm area of slough, necrosis Complications: None Transferred to: Recovery Room Condition: Good
[2023-10-28] MEDS ORDERED: HYDROMORPHONE HCL 2 MG/ML inj ONE (17:15)
[2023-10-28] MEDS ORDERED: FENTANYL CITR 100 MCG/2 ML ONE (17:40)
--- NOTE | 2023-10-28 17:40 | OP ---
Date of Procedure: 10/28/2023 Surgeon: Clyde Solorio MD, Preoperative Diagnosis: Left lower leg/calf necrotic wound. Postoperative Diagnosis: Left lower leg/calf necrotic wound. Procedure Performed: Excisional debridement of left lower leg calf necrotic wound and pulse lavage of left lower leg/calf necrotic wound. Anesthesia: General endotracheal plus local. Estimated Blood Loss: 70 cc. Specimen: Debridement tissue. Findings: Approximate 50 cm area of slough necrosis of posterior calf tissue down to the deep dermal plane. Complications: None. Disposition: Patient transferred to recovery room in good condition. Procedure In Detail: After informed consent was obtained, patient was brought to the operating room, prepped and draped in the usual sterile fashion after adequate anesthesia was achieved. The area of the left calf had simple necrotic tissue, which could easily be removed with the finger pulling this necrotic tissue all the way off quite easily with the most minimal of application of finger pressure. This necrotic tissue was removed and sent off for pathologic examination. Good healthy bleeding tissue was left behind. I pulse lavaged the area, achieved hemostasis with electrocautery and then packed the wound with Vashe soaked gauze and a sterile Kerlix placed over the top with Mann bandage. The patient tolerated the procedure well without evidence of complication, transferred to PACU in good condition. All counts were correct at the end of the case. NAEL/SRINATH Voice ID: [id number] Report ID: [id number] LUCIO
[2023-10-28] MEDS: HYDROMORPHONE HCL 1 MG/ML INJ ONE ×2 (17:42→17:49)
[2023-10-28] MEDS ORDERED: NA CHLORIDE 0.9% 1,000 ML ONE (17:43)
[2023-10-29] MEDS: CEFEPIME 2 GM in NA CHLORIDE 0.9% 100 ML IV SCH ×3 (00:15→16:28)
[2023-10-29] MEDS: HYDROCODONE/APAP 5/325 MG TAB PO PRN ×2 (00:19→05:35)
[2023-10-29] MEDS: MORPHINE 2 MG/ML SYR IV PRN ×5 (01:33→20:27)
[2023-10-29] MEDS ORDERED: HYDROMORPHONE HCL 1 MG/ML INJ IV ONE (02:07)
[2023-10-29 02:43] LABS: Absolute Lymphocytes (CBC) 1.8 K/uL (0.7-4.9); Hematocrit 23.1 % (39.6-49.0); Lymphocytes % 47.4 % (15.3-44.8); MCV 76.3 fL (80-100); Platelets 349 thou/uL (152-406); RBC Red Blood Cell Count 3.03 M/uL (4.33-5.43)
[2023-10-29 03:04] LABS: Potassium 3.9 mEq/L (3.5-5.1)
[2023-10-29] MEDS: NA CHLORIDE 0.9% 1,000 ML IV SCH ×2 (05:35→16:27)
[2023-10-29] MEDS: ENOXAPARIN 40 MG/0.4 ML SQ SCH (07:40)
--- NOTE | 2023-10-29 08:36 | P.PN ---
Date of Service: 10/29/23 Chief Complaint: neutropenia, GI bleeding, Non healing wounds on EDWIN and abdominal wall Subjective: s/p debridement of left lower leg necrotic wound yesterday afternoon by . Patient seen and examined at bedside. Patient is crying due to severe pain of left lower leg. Physical Examination Temp Pulse Resp BP Pulse Ox 97.1 F 86 18 119/56 L 99 10/29/23 07:05 10/29/23 07:05 10/29/23 07:05 10/29/23 07:05 10/29/23 07:05 General: Alert. Oriented x3 HEENT: Atraumatic, Normocephalic Respiratory: Clear to auscultation bilaterally, Normal air movement Cardiovascular: Regular rate/rhythm Gastrointestinal: Normal bowel sounds, Soft and benign. Obese. Integumentary: Skin lesion under abdominal fold and right abdominal wall. 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 He reportedly has undergone 6 debridements over the past 1.5 years, primarily at various [facility] and [facility] locations. He has only been receiving wound care 2x per week via home health. - Currently on Cefepime and Vancomycin (started 10/26) - s/p debridement of left lower leg necrotic wound 10/[address] Solorio Blood cultures 10/26: no growth to date Afebrile. Recommendations - Continue Cefepime and Vancomycin for now. Due to patient high risk for MDR as he has been hospitalized multiple times for left lower leg wound and on multiple antibiotics within the past year, continue with Cefepime and Vancomycin. - Monitor WBC and fever trends - Wound care per Dr. Solorio/wound care team - Pain management per primary team. Case discussed with Talon Post
[2023-10-29] MEDS: VANCOMYCIN 2 GM in NA CHLORIDE 0.9% 500 ML IVPB SCH ×2 (09:42→22:11)
--- NOTE | 2023-10-29 10:55 | P.PN ---
Subjective Date of Service: 10/29/23 Chief Complaint: neutropenia, GI bleeding, Non healing wounds on EDWIN and abdominal wall Subjective: No new changes, C/O voiced (Increased pain) Patient is alert and orientedx3 Breathing normally at room air NAD Vitals atable Pt used BIPAP at night Reporting Pain is not controlled on the analgesics Debridement of LLE wound done on 10/29/[address] Solorio. <Josef Rubi - Last Filed: 10/29/23 10:48> Date of Service: 10/30/23 <SilasOsbaldo farr Matt - Last Filed: 10/30/23 17:41> Review of Systems 10-point ROS is otherwise unremarkable <Josef Rubi - Last Filed: 10/29/23 10:48> Physical Examination - Vital Signs Temperature: 97.1 F Blood Pressure: 119/56 Pulse: 86 Respirations: 18 Pulse Ox (%): 99 - Physical Exam General: Alert, Oriented x3 HEENT: Atraumatic, Normocephalic Neck: Supple, 2+ carotid pulse no bruit Cardiovascular: No edema, Normal pulses, Normal S1 S2 Capillary refill: <2 Seconds Gastrointestinal: Normal bowel sounds, Soft and benign Musculoskeletal: No clubbing, No swelling, Swelling (LLE) Integumentary: Other (Chronic ulcers on the right lower abdomen, left calf muscle) Neurological: Normal speech, Normal tone, Normal affect <Josef Rubi - Last Filed: 10/29/23 10:48> Assessment And Plan - Current Problems (Diagnosis) (1) Neutropenia Current Visit: Yes Status: Chronic (2) Weakness Current Visit: Yes Status: Acute (3) GI bleeding Current Visit: Yes Status: Acute Qualifiers: GI bleed type/associated pathology: unspecified gastrointestinal hemorrhage type Qualified Code(s): K92.2 - Gastrointestinal hemorrhage, unspecified (4) Syncope, near Current Visit: Yes Status: Acute (5) Abdominal wall cellulitis Current Visit: Yes Status: Acute (6) Cellulitis of left lower extremity Current Visit: Yes Status: Acute - Plan * Patient presented with GI bleeding small amount associated with the near syncope- resolved, no more GI bleeding at this time * Patient will have to see GI doctor as outpatient for follow ups and colonosci py * hemoglobin 7.6 over hematocrit 23 , Consulted Dr. Chanel (woodwind instruments inspector) * Vitals stable, pain is worse after debridement, Increased dose of [place] to 10mg po q6hrs as needed for pain. * Will continue to monitor CBC * Continue GI Dr. Solis * Continue IV antibiotic vancomycin and cefepime started, IV fluids , * Continue ID and wound care Dr. Solis/Chelsey BODY PRESS OPERATOR * Surgeon Dr. Solorio Surgeon. debridement of the LLE wound done on 10/28/2023 * Close monitoring of vital signs, monitor and replete electrolyte * Reconciled home medication and start up as appropriate * Monitor WBC and fever trends, Wound care per Dr. Solorio/wound care team * Plan of care , todays lab results discussed with patient at bedside. * CODE STATUS full code * Diet to regular * DVT prophylaxisLovenox . Discharge Plan: Home Plan to discharge in: 48 Hours - Code Status/Comfort Care Code Status Assessed: Yes (full code) Code Status: Full Code Physician Review: Patient Assessed, Agree with Above Assessment and Plan Critical Care: No Time Spent Managing PTS Care (In Minutes): 35 (Minutes) <Josef Rubi - Last Filed: 10/29/23 10:48> - Plan Pt seen and examined. I agree with the note by the BODY PRESS OPERATOR. S/p wound debridement. Pt is asking for more pain med. <Osbaldo Souza - Last Filed: 10/30/23 17:41>
[2023-10-29] MEDS: HYDROCODONE/APAP 10/325 TAB PO PRN ×2 (11:12→22:11)
[2023-10-30] MEDS: MORPHINE 2 MG/ML SYR IV PRN ×3 (00:42→10:50)
[2023-10-30] MEDS: CEFEPIME 2 GM in NA CHLORIDE 0.9% 100 ML IV SCH ×3 (00:42→17:05)
[2023-10-30] MEDS: NA CHLORIDE 0.9% 1,000 ML IV SCH ×3 (04:30→22:00)
[2023-10-30 07:52] LABS: Absolute Lymphocytes (CBC) 2.3 K/uL (0.7-4.9); Hematocrit 22.4 % (39.6-49.0); Lymphocytes % 56.6 % (15.3-44.8); MCV 75.2 fL (80-100); MPV 7.3 fL (7.6-11.3); Platelets 385 thou/uL (152-406); RBC Red Blood Cell Count 2.97 M/uL (4.33-5.43)
[2023-10-30] MEDS: HYDROCODONE/APAP 10/325 TAB PO PRN ×3 (07:54→21:57)
[2023-10-30 08:07] LABS: Magnesium 1.9 mg/dL (1.6-2.4); Phosphorus 3.4 mg/dL (2.5-4.9); Potassium 3.7 mEq/L (3.5-5.1)
--- NOTE | 2023-10-30 09:11 | P.PN ---
Date of Service: 10/30/23 Chief Complaint: neutropenia, GI bleeding, Non healing wounds on EDWIN and abdominal wall Subjective: + Severe left lower leg pain. No acute events overnight. Physical Examination Temp Pulse Resp BP Pulse Ox 97.1 F 89 18 135/69 99 10/30/23 08:00 10/30/23 08:00 10/30/23 08:00 10/30/23 08:00 10/30/23 08:00 General: Alert. Oriented x3 HEENT: Atraumatic, Normocephalic Respiratory: Clear to auscultation bilaterally, Normal air movement Cardiovascular: Regular rate/rhythm Gastrointestinal: Normal bowel sounds, Soft and benign. Obese. Integumentary: Skin lesion under abdominal fold and right abdominal wall. 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 He reportedly has undergone 6 debridements over the past 1.5 years, primarily at various [facility] and [facility] locations. He has only been receiving wound care 2x per week via home health. Patient will require daily wound care. - Currently on Cefepime and Vancomycin (started 10/26) - s/p debridement of left lower leg necrotic wound 10/[address] Solorio. No culture obtained. Blood cultures 10/26: no growth to date Afebrile. Recommendations - Continue Cefepime and Vancomycin for now. Due to patient high risk for MDR as he has been hospitalized multiple times for left lower leg wound and on multiple antibiotics within the past year, continue with Cefepime and Vancomycin. - Upon discharge, start patient on Ciprofloxacin and Doxycycline PO for 10 days. - Monitor WBC and fever trends - Wound care per Dr. Solorio/wound care team - Pain management per primary team. Case discussed with Talon Post
[2023-10-30] MEDS: ENOXAPARIN 40 MG/0.4 ML SQ SCH (09:29)
[2023-10-30 10:55] LABS: Anisocytosis 1+; Blood Morphology Comment NOTED (NOT SEEN); Platelet Estimate ADEQ
[2023-10-30] MEDS: VANCOMYCIN 2 GM in NA CHLORIDE 0.9% 500 ML IVPB SCH ×2 (11:48→21:57)
[2023-10-30] MEDS ORDERED: POTASSIUM 25 MEQ EFFERV TAB PO ONE (12:00)
--- NOTE | 2023-10-30 13:05 | P.PN ---
Subjective Date of Service: 10/30/23 Chief Complaint: neutropenia, GI bleeding, Non healing wounds on EDWIN and abdominal wall Subjective: No new changes, Tolerating diet, Doing well Patient is alert and orientedx3 Breathing normally at room air NAD Vitals atable Pt used BIPAP at night Reporting Pain is not controlled on the analgesics Debridement of LLE wound done on 10/29/[address] Solorio. <Josef Rubi - Last Filed: 10/30/23 13:03> Date of Service: 10/30/23 <SilasOsbaldo farr Matt - Last Filed: 10/30/23 17:51> Review of Systems 10-point ROS is otherwise unremarkable <Josef Rubi - Last Filed: 10/30/23 13:03> Physical Examination - Vital Signs Temperature: 97.1 F Blood Pressure: 135/69 Pulse: 89 Respirations: 18 Pulse Ox (%): 99 - Physical Exam General: Alert HEENT: Atraumatic, Normocephalic Neck: Supple, 2+ carotid pulse no bruit Respiratory: Clear to auscultation bilaterally, Normal air movement Cardiovascular: No edema, Normal pulses Capillary refill: <2 Seconds Gastrointestinal: Normal bowel sounds, Soft and benign Musculoskeletal: No clubbing, No swelling Integumentary: Other (Laft calf chronic ulcer and right Lower abdominal ulcers) Neurological: Normal speech, Normal tone, Normal affect <Josef Rbui - Last Filed: 10/30/23 13:03> Assessment And Plan - Current Problems (Diagnosis) (1) Neutropenia Current Visit: Yes Status: Chronic (2) Weakness Current Visit: Yes Status: Acute (3) GI bleeding Current Visit: Yes Status: Acute Qualifiers: GI bleed type/associated pathology: unspecified gastrointestinal hemorrhage type Qualified Code(s): K92.2 - Gastrointestinal hemorrhage, unspecified (4) Syncope, near Current Visit: Yes Status: Acute (5) Abdominal wall cellulitis Current Visit: Yes Status: Acute (6) Cellulitis of left lower extremity Current Visit: Yes Status: Acute - Plan * Patient presented with GI bleeding small amount associated with the near syncope- resolved, no more GI bleeding at this time * Patient will have to see GI doctor as outpatient for follow ups and colonoscipy * hemoglobin 7.6 over hematocrit 23 , Consulted Dr. Chanel (art appraiser) * Vitals stable, pain is worse after debridement, Increased dose of [place] to 10 mg po q6hrs as needed for pain. * Will continue to monitor CBC * Continue GI Dr. Solis * Continue IV antibiotic vancomycin and cefepime started, IV fluids , * Continue ID and wound care Dr. Solis/Chelsey SENIOR VICE PRESIDENT & GENERAL COUNSEL * Surgeon Dr. Solorio Surgeon. debridement of the LLE wound done on 10/28/2023 * Close monitoring of vital signs, monitor and replete electrolyte * Reconciled home medication and start up as appropriate * Monitor WBC and fever trends, Wound care per Dr. Solorio/wound care team * Plan of care , todays lab results discussed with patient at bedside. * CODE STATUS full code * Diet to regular * DVT prophylaxisLovenox . Discharge Plan: Home Plan to discharge in: 24 Hours - Code Status/Comfort Care Code Status Assessed: Yes (full code) Code Status: Full Code Physician Review: Patient Assessed, Agree with Above Assessment and Plan Critical Care: Yes Time Spent Managing PTS Care (In Minutes): 35 (minutes) <Josef Rubi - Last Filed: 10/30/23 13:03> - Plan Pt seen and examined. I agree with the note by the SENIOR VICE PRESIDENT & GENERAL COUNSEL. S/p wound debridement. Pt is getting iv abx. He wanst more pain meds. <Osbaldo Souza - Last Filed: 10/30/23 17:51>
[2023-10-30] MEDS: HYDROMORPHONE HCL 1 MG/ML INJ IV PRN (19:43)
[2023-10-30] MEDS: GABAPENTIN 300 MG CAP PO SCH (19:43)
[2023-10-30 21:40] VITALS: O2SAT 97
[2023-10-31] MEDS: HYDROMORPHONE HCL 1 MG/ML INJ IV PRN ×4 (00:20→13:59)
[2023-10-31] MEDS: CEFEPIME 2 GM in NA CHLORIDE 0.9% 100 ML IV SCH ×2 (00:23→08:09)
[2023-10-31 03:35] LABS: Absolute Lymphocytes (CBC) 1.9 K/uL (0.7-4.9); Hematocrit 24.3 % (39.6-49.0); Lymphocytes % 55.3 % (15.3-44.8); MCV 75.9 fL (80-100); MPV 7.5 fL (7.6-11.3); Platelets 428 thou/uL (152-406); RBC Red Blood Cell Count 3.21 M/uL (4.33-5.43)
[2023-10-31 03:52] LABS: Phosphorus 3.8 mg/dL (2.5-4.9); Potassium 3.6 mEq/L (3.5-5.1)
[2023-10-31] MEDS: NA CHLORIDE 0.9% 1,000 ML IV SCH (04:16)
[2023-10-31] MEDS ORDERED: POTASSIUM CL SA 10 MEQ TAB PO ONE (07:30)
[2023-10-31] MEDS: ENOXAPARIN 40 MG/0.4 ML SQ SCH ×2 (08:09→08:10)
[2023-10-31] MEDS: GABAPENTIN 300 MG CAP PO SCH ×2 (08:10→13:59)
[2023-10-31] MEDS ORDERED: LIDOCAINE HCL JELLY 2% 6 ML SYRINGE TOP SCH (09:00)
[2023-10-31] MEDS ORDERED: COLLAGENASE 30 GM OINTMENT TOP SCH (09:00)
[2023-10-31] MEDS ORDERED: LIDOCAINE JELLY 2%- 5 ML TUBE TOP SCH (09:00)
[2023-10-31] MEDS: HYDROCODONE/APAP 10/325 TAB PO PRN (10:26)
[2023-10-31] MEDS: VANCOMYCIN 2 GM in NA CHLORIDE 0.9% 500 ML IVPB SCH (10:32)
--- NOTE | 2023-10-31 12:10 | P.DS ---
Admission Date: 10/26/23 Discharge Date: 10/31/23 Reason for Admission: neutropenia, GI bleeding, Non healing wounds on EDWIN and abdominal wall - Problems (1) Neutropenia Status: Chronic (2) Weakness Status: Acute (3) GI bleeding Status: Acute Qualifiers: GI bleed type/associated pathology: unspecified gastrointestinal hemorrhage type Qualified Code(s): K92.2 - Gastrointestinal hemorrhage, unspecified (4) Syncope, near Status: Acute (5) Abdominal wall cellulitis Status: Acute (6) Cellulitis of left lower extremity Status: Acute Brief History of Present Illness: This 33 yrs old Male with primary medical history of congenital neutropenia, anemia, nonhealing wounds on the right abdominal wall and left lower extremity presents to ER via EMS with complaints of GI Bleeding, Patient patient reports she had small amount of rectal bleeding this morning twice, associated with near fall in the bathroom denies any traumas. Patient denies chest pain, shortness of breath, abdominal pain, nausea or vomiting. Patient has multiple nonhealing ulcers on the abdominal wall on the right side, nonhealing left lower extremity large wound ED course Vital Signs: BP 106 / 66; Pulse 103; Resp 18; Temp 98.6; Pulse Ox 97% on R/A; Weight 113.4 kg; Height 5 ft. 2 in. ; Pain 9/10 EKG normal sinus rhythm Initial labs low WBC 4.4, anemia hemoglobin 8.8 over hematocrit 26.2, INR 1.83, urine analysis shows some blood. Admitting the patient with a diagnosis of anemia, GI bleeding, neutropenia, nonhealing cellulitis of abdominal wall and the left lower extremity. Hospital Course: Mr. Maria is a pleasant 33-year-old male patient with a past medical history significant for chronic neutropenia, anemia, nonhealing wounds on the right abdominal wall and the left lower extremity who was admitted to the [facility] on rectal bleeding near syncope and worsening of the wounds. Patient was admitted to the hospital, treated with broad-spectrum antibiotics, analgesics as needed. Patient's hemoglobin was within acceptable range. There was no other bleeding occurred during the hospital stay. Patient had a incision and drainage done by Dr. Solorio was self on 10/29/2023. On 10/31/2020, patient was seen on morning rounds and deemed medically stable for discharge. Patient was discharged with instructions to schedule follow-up appointments with PCP and Dr. Solorio. Patient was provided prescriptions for [text]. The patient a was given the opportunity to ask questions and reported no further questions. Furthermore, all questions were answered to the best of my ability. A copy of this discharge summary will be sent to the above providers to facilitate continuity of care. 1. Please call and schedule a follow-up appointment with your PCP in 3-5 days 2. Please call and schedule a follow-up appointment with Dr. Solorio for the wound management 3-5 days - Please follow-up with your PCP for medication refills/adjustments <Josef Rubi - Last Filed: 10/31/23 17:28> Admission Date: 10/26/23 Discharge Date: 11/10/23 Hospital Course: Pt seen and examined. I agree with the note by the MOBILE SECURITY ARCHITECT. Ok to discharge pt. <Osbaldo Souza - Last Filed: 11/10/23 18:10> Disposition: MD HOME/HOME HEALTH CARE Discharge Condition: GOOD Vital Signs/Physical Exam: Temp Pulse Resp BP Pulse Ox 97.2 F 98 H 18 129/62 98 10/31/23 11:52 10/31/23 11:52 10/31/23 11:52 10/31/23 11:52 10/31/23 11:52 General: Alert, Oriented x3 HEENT: Atraumatic, Normocephalic Neck: Supple, 2+ carotid pulse no bruit Respiratory: Clear to auscultation bilaterally, Normal air movement Cardiovascular: No edema, Normal pulses Capillary refill: <2 Seconds Gastrointestinal: Normal bowel sounds, Soft and benign Musculoskeletal: No clubbing, Other (left calf wound post debridement) Integumentary: Other (non healing ulcers on the right lower abdomen and left calf) Laboratory Data at Discharge: WBC 3.50 thou/uL (4.3-10.9) L 10/31/23 03:17 Hgb 8.1 g/dL (13.6-17.9) L 10/31/23 03:17 Hct 24.3 % (39.6-49.0) L 10/31/23 03:17 Plt Count 428 thou/uL (152-406) H 10/31/23 03:17 PT 19.8 SECONDS (9.5-12.5) H 10/26/23 14:40 INR 1.83 10/26/23 14:40 Sodium 133 mEq/L (136-145) L 10/31/23 03:17 Potassium 3.6 mEq/L (3.5-5.1) 10/31/23 03:17 BUN 8 mg/dL (7-18) 10/31/23 03:17 Creatinine 0.87 mg/dL (0.70-1.30) 10/31/23 03:17 Glucose 128 mg/dL (74-106) H 10/31/23 03:17 Phosphorus 3.8 mg/dL (2.5-4.9) 10/31/23 03:17 Magnesium 2.0 mg/dL (1.6-2.4) 10/31/23 03:17 Total Bilirubin 0.7 mg/dL (0.2-1.0) 10/26/23 14:40 AST 15 U/L (15-37) 10/26/23 14:40 ALT 19 U/L (16-61) 10/26/23 14:40 Alkaline Phosphatase 48 U/L (45-117) 10/26/23 14:40 Triglycerides 87 mg/dL (<150) 10/27/23 03:49 Cholesterol 109 mg/dL (<200) 10/27/23 03:49 HDL Cholesterol 15 mg/dL (40-60) L 10/27/23 03:49 Cholesterol/HDL Ratio 7.27 10/27/23 03:49 Lipase 18 U/L (13-75) 10/26/23 14:40 <Josef Rubi - Last Filed: 10/31/23 17:28> Vital Signs/Physical Exam: Temp Pulse Resp BP Pulse Ox 97.5 F 100 H 18 165/97 H 98 10/31/23 16:00 10/31/23 16:00 10/31/23 16:00 10/31/23 16:00 10/31/23 16:00 Laboratory Data at Discharge: WBC 3.50 thou/uL (4.3-10.9) L 10/31/23 03:17 Hgb 8.1 g/dL (13.6-17.9) L 10/31/23 03:17 Hct 24.3 % (39.6-49.0) L 10/31/23 03:17 Plt Count 428 thou/uL (152-406) H 10/31/23 03:17 PT 19.8 SECONDS (9.5-12.5) H 10/26/23 14:40 INR 1.83 10/26/23 14:40 Sodium 133 mEq/L (136-145) L 10/31/23 03:17 Potassium 3.6 mEq/L (3.5-5.1) 10/31/23 03:17 BUN 8 mg/dL (7-18) 10/31/23 03:17 Creatinine 0.87 mg/dL (0.70-1.30) 10/31/23 03:17 Glucose 128 mg/dL (74-106) H 10/31/23 03:17 Phosphorus 3.8 mg/dL (2.5-4.9) 10/31/23 03:17 Magnesium 2.0 mg/dL (1.6-2.4) 10/31/23 03:17 Total Bilirubin 0.7 mg/dL (0.2-1.0) 10/26/23 14:40 AST 15 U/L (15-37) 10/26/23 14:40 ALT 19 U/L (16-61) 10/26/23 14:40 Alkaline Phosphatase 48 U/L (45-117) 10/26/23 14:40 Triglycerides 87 mg/dL (<150) 10/27/23 03:49 Cholesterol 109 mg/dL (<200) 10/27/23 03:49 HDL Cholesterol 15 mg/dL (40-60) L 10/27/23 03:49 Cholesterol/HDL Ratio 7.27 10/27/23 03:49 Lipase 18 U/L (13-75) 10/26/23 14:40 <Osbaldo Souza - Last Filed: 11/10/23 18:10> Diet: Regular Activity: Ad maicol Time spent managing pt's care (in minutes): 55 (minutes) <Josef Rubi - Last Filed: 10/31/23 17:28> <Osbaldo Souza - Last Filed: 11/10/23 18:10> Home Medications: Gabapentin 300 mg PO TID 12/19/23 Ciprofloxacin HCl [Cipro] 500 mg PO BID 10 Days #20 tab 10/31/23 Doxycycline Hyclate 100 mg PO BID 10 Days #20 tab 10/31/23 Oxycodone HCl/Acetaminophen [Oxycodone-Acetaminophen 10-325] 1 tab PO Q6H PRN #18 tab 10/31/23 New Medications: Ciprofloxacin HCl [Cipro] 500 mg PO BID 10 Days #20 tab Doxycycline Hyclate 100 mg PO BID 10 Days #20 tab Oxycodone HCl/Acetaminophen [Oxycodone-Acetaminophen 10-325] 1 tab PO Q6H PRN #18 tab PRN Reason: Pain Scale 8-10 (Severe) Physician Discharge Instructions: Mr. Maria is a pleasant 33-year-old male patient with a past medical history significant for chronic neutropenia, anemia, nonhealing wounds on the right abdominal wall and the left lower extremity who was admitted to the [facility] on rectal bleeding near syncope and worsening of the wounds. Patient was admitted to the hospital, treated with broad-spectrum antibiotics, analgesics as needed. Patient's hemoglobin was within acceptable range. There was no other bleeding occurred during the hospital stay. Patient had a incision and drainage done by Dr. Solorio was self on 10/29/2023. On 10/31/2020, patient was seen on morning rounds and deemed medically stable for discharge. Patient was discharged with instructions to schedule follow-up appointments with PCP and Dr. Solorio. Patient was provided prescriptions for [text]. The patient a was given the opportunity to ask questions and reported no further questions. Furthermore, all questions were answered to the best of my ability. A copy of this discharge summary will be sent to the above providers to facilitate continuity of care. 1. Please call and schedule a follow-up appointment with your PCP in 3-5 days 2. Please call and schedule a follow-up appointment with Dr. Solorio for the wound management 3-5 days - Please follow-up with your PCP for medication refills/adjustments Followup: NONE,NONE [Primary Care Provider] -
[2023-10-31 16:40] VITALS: BP 165/97; TEMP 97.5
== END 2023-10-31 17:08 | disposition home health service (06) | DRG 571 ==
LOC: ER 13:28 → ERHOLD 17:20 → 2ND 18:16
PROVIDERS: ADMIT Hospitalist; ATTEND Hospitalist
PROC: 5A09457 Assistance with Respiratory Ventilation, 24-96 Consecutive Hours, Continuous Positive Airway Pressure (ICD-10-PCS; 2023-10-27)
PROC: 0JBP0ZZ Excision of Left Lower Leg Subcutaneous Tissue and Fascia, Open Approach (ICD-10-PCS; principal; 2023-10-28 18:15)
DX: L03.116 Cellulitis of left lower limb (principal); E87.1 Hypo-osmolality and hyponatremia; I96 Gangrene, not elsewhere classified; L03.311 Cellulitis of abdominal wall; Z68.42 Body mass index [BMI] 45.0-49.9, adult; D70.0 Congenital agranulocytosis; D64.9 Anemia, unspecified; R55 Syncope and collapse; S81.802A Unspecified open wound, left lower leg, initial encounter; S31.109A Unspecified open wound of abdominal wall, unspecified quadrant without penetration into peritoneal cavity, initial encounter; E83.51 Hypocalcemia; G47.33 Obstructive sleep apnea (adult) (pediatric); E66.01 Morbid (severe) obesity due to excess calories; Z87.891 Personal history of nicotine dependence; Z11.52 Encounter for screening for COVID-19
CPT/HCPCS: 0241U; 36415; 70450; 71045; 71260; 72125; 74177; 80048; 80061; 80076; 80202; 81001; 83605; 83690; 83735; 83880; 84100; 84484; 85025; 85610; 87040; 88304; 93005; 94660; 96361; 96365; 96375; 99285; J0692; J1170; J1650; J2250; J2270; J2405; J2704; J3010; J3590; J7030; J7040; Q9967

== ENCOUNTER 2023-12-25 15:11 | Inpatient (IN) | payer OTHER ==
[2023-12-25 16:52] LABS: Absolute Lymphocytes (CBC) 1.9 K/uL (0.7-4.9); Hematocrit 30.8 % (39.6-49.0); Lymphocytes % 45.3 % (15.3-44.8); MCV 79.5 fL (80-100); MPV 7.9 fL (7.6-11.3); Platelets 415 thou/uL (152-406); RBC Red Blood Cell Count 3.88 M/uL (4.33-5.43)
[2023-12-25 16:55] LABS: Protime INR 1.46
[2023-12-25 17:12] LABS: Albumin 2.5 g/dL (3.4-5.0); Bilirubin Total 0.4 mg/dL (0.2-1.0); Potassium 4.1 mEq/L (3.5-5.1); Protein, Total 9.6 g/dL (6.4-8.2)
[2023-12-25] MEDS ORDERED: ONDANSETRON 4 MG/2 ML VIAL ONE (18:05)
[2023-12-25] MEDS ORDERED: MORPHINE 4 MG/ML SYR ONE (18:05)
[2023-12-25 18:07] LABS: Anisocytosis 2+; Blood Morphology Comment NOTED (NOT SEEN); Platelet Estimate ADEQ
--- NOTE | 2023-12-25 18:32 | RAD REPORT ---
EXAM DESCRIPTION: CTAbdomen Pelvis W Contrast - 12/25/2023 6:18 pm CLINICAL HISTORY: abdominal wounds, r/o abscess COMPARISON: No comparisons TECHNIQUE: CT of the abdomen and pelvis was performed. All CT scans are performed using dose optimization technique as appropriate and may include automated exposure control or mA/KV adjustment according to patient size. FINDINGS: Lower chest: Trace pericardial effusion. Liver: Too small to characterize liver lesions which are likely benign. Hepatomegaly with steatosis. Biliary: Cholelithiasis. No CT evidence of acute cholecystitis. Stomach: No significant focal abnormality. Duodenum: No significant focal abnormality. Pancreas: No significant abnormality. Spleen: No significant abnormality. Adrenal: No suspicious lesions. Kidney/ureter: No hydronephrosis. No renal calculi. Retroperitoneum: No retroperitoneal adenopathy. Vascular: No aneurysm. Bowel: No significant focal abnormality. Peritoneum: No ascites or free air. Ventral abdominal wall laxity. Small fat containing umbilical her brenda. Bladder: Grossly unremarkable. Reproductive: No adnexal masses. Bones: No acute fracture. Other: n/a IMPRESSION: No acute intra-abdominal or pelvic finding. No intra-abdominal or abdominal wall abscess identified
--- NOTE | 2023-12-25 18:54 | ER ---
Nurse's Notes [facility] Name: Abel Maria Age: 33 yrs Sex: Male : 1990 Arrival Date: 12/25/2023 Time: 15:11 Bed 14 Private MD: Diagnosis: Neutropenia, unspecified;Cellulitis of abdominal wall Presentation: 12/25 15:33 Chief complaint: Patient states: pt has 4 chronic wounds that are worsening and home as6 health want him to get them checked out. Coronavirus screen: At this time, the client does not indicate any symptoms associated with coronavirus-19. Ebola Screen: No symptoms or risks identified at this time. Initial Sepsis Screen: Does the patient meet any 2 criteria? No. Patient's initial sepsis screen is negative. Does the patient have a suspected source of infection? No. Patient's initial sepsis screen is negative. Risk Assessment: Do you want to hurt yourself or someone else? Patient reports no desire to harm self or others. Onset of symptoms was December 25, 2023. 15:33 Method Of Arrival: Wheelchair as6 15:33 Acuity: RICH 3 as6 Historical: - Allergies: 15:35 No Known Allergies; as6 - PMHx: 15:35 Congenital neutropenia; Sleep Apnea; as6 - PSHx: 15:35 leg (Sleep Apnea); rectum (Sleep Apnea); eye (Sleep Apnea); as6 - Immunization history:: Adult Immunizations up to date. - Social history:: Smoking status: Patient denies any tobacco usage or history of. Screenin:39 [facility] ED Fall Risk Assessment (Adult) History of falling in the last 3 months, mb9 including since admission No falls in past 3 months (0 pts) Confusion or Disorientation No (0 pts) Intoxicated or Sedated No (0 pts) Impaired Gait Yes (1 pt) Mobility Assist Device Used Yes (1 pt) Altered Elimination No (0 pt) Score/Fall Risk Level 0 - 2 = Low Risk Oriented to surroundings, Maintained a safe environment, Educated pt \T\ family on fall prevention, incl call for assistance when getting out of bed. Abuse screen: Denies threats or abuse. Nutritional screening: No deficits noted. Tuberculosis screening: No symptoms or risk factors identified. Assessment: 17:38 Reassessment: pt brought back to ER room. mb9 17:40 General: Appears in no apparent distress. Behavior is cooperative. Pain: Complains of mb9 pain in abdomen, right leg and left leg. Neuro: Blue Agitation-Sedation Scale (RASS): 0 - Alert and Calm Level of Consciousness is awake, alert, obeys commands, Oriented to person, place, time, situation, Appropriate for age. Cardiovascular: Patient's skin is warm and dry. Respiratory: Airway is patent Respiratory effort is even, unlabored, Respiratory pattern is regular, symmetrical. GI: Abdomen is round non-distended, Bowel sounds present X 4 quads. : No signs and/or symptoms were reported regarding the genitourinary system. EENT: No signs and/or symptoms were reported regarding the EENT system. Musculoskeletal: Range of motion: intact in all extremities. 17:45 Derm: Wound noted abdomen and left leg Wound is erythema and purulent drainage noted. mb9 18:48 Reassessment: No changes from previously documented assessment. Patient and/or family mb9 updated on plan of care and expected duration. Pain level reassessed. Patient is alert, oriented x 3, equal unlabored respirations, skin warm/dry/pink. 12/26 16:00 Reassessment: attempted to call report, no answer at 1224, notified charge nurse and ko1 nursing malted milk supervisor. 16:05 Reassessment: attempted to call report to [phone], was given number for receiving nurse ko1 and asked to give her 5 minutes for a SBAR to be printed and given to the nurse. 16:15 Reassessment: attempted to call report to [phone], nurse was in a patient room and cynthia states she will call me back in 10 minutes. Vital Signs: 12/25 15:33 BP 132 / 61; Pulse 99; Resp 18 S; Temp 98.9(O); Pulse Ox 97% on R/A; Weight 111.58 kg as6 (R); Height 5 ft. 2 in. (R); Pain 8/10; 17:41 BP 131 / 69; Pulse 89; Resp 18; Pulse Ox 98% on R/A; mb9 18:48 BP 125 / 76; Pulse 85; Resp 18; Pulse Ox 99% on R/A; mb9 15:33 Body Mass Index 44.99 (111.58 kg, 157.48 cm) as6 15:33 Pain Scale: Adult as6 ED Course: 15:14 Patient arrived in ED. mg5 15:18 Jessica Torres [facility]-C [facility] sb4 15:18 Castillo Camacho MD is Attending Physician. sb4 15:35 Triage completed. as6 15:37 Arm band placed on. as6 16:30 Inserted saline lock: 20 gauge in left upper arm, using aseptic technique. Blood as6 collected. ultrasound guided, long catheter. 17:35 Raquel Denise, SONG is Primary Nurse. mb9 17:38 Placed in gown. Bed in low position. Call light in reach. Side rails up X 1. Client mb9 placed on continuous cardiac and pulse oximetry monitoring. NIBP monitoring applied. 17:41 No provider procedures requiring assistance completed. mb9 18:19 CT Abd/Pelvis - IV Contrast Only In Process Unspecified. EDMS 18:53 Geovanny Arguello MD is Hospitalizing Provider. sb4 21:44 Provided Education on: need for admit. tm6 21:44 Patient admitted, IV remains in place. tm6 Administered Medications: 18:02 Drug: Ondansetron IVP 4 mg IVP once; over 2 minutes Route: IVP; Site: left antecubital; mb9 18:43 Follow up: Response: No adverse reaction mb9 18:09 Drug: morphine IVP or IV 4 mg IVP once over 4 mins Route: IVP; Infused Over: 4 mins; mb9 Site: left antecubital; 18:43 Follow up: Response: No adverse reaction mb9 Medication: 17:39 VIS not applicable for this client. mb9 Outcome: 18:54 Decision to Hospitalize by Provider. sb4 21:44 Admitted to ER Hold. Please see [facility] for further documentation. tm6 21:44 Condition: stable 21:44 Instructed on the need for admit, 12/26 17:00 Patient left the ED. eb Signatures: Dispatcher [employer] EDRI Fabi Moyer Ashby RN RN as6 Zonia Hamilton RN RN ko1 Jessica Torres PA-C PA-C sb4 Raquel Denise, SONG RN mb9 Marla Carpenter mg5 Ruma Cross RN RN tm6
--- NOTE | 2023-12-25 18:54 | EDPHYS ---
Physician Documentation [facility] Name: Abel Maria Age: 33 yrs Sex: Male : 1990 Arrival Date: 12/25/2023 Time: 15:11 Bed 14 Private MD: ED Physician Castillo Camacho HPI: 12/25 15:46 This 33 yrs old Male presents to ER via Wheelchair with complaints of Wound Check. sb4 15:46 patient states that he has 4 chronic wounds- left bruno, right side, sacrum, and groin sb4 region- that home health tends to. he states that over the past few weeks they have progressively gotten more red, painful, and are now draining. home health sent him to the ED to be evaluated. denies any fever or chills. does not see wound care due to lack of insurance. Historical: - Allergies: 15:35 No Known Allergies; as6 - PMHx: 15:35 Congenital neutropenia; Sleep Apnea; as6 - PSHx: 15:35 leg (Sleep Apnea); rectum (Sleep Apnea); eye (Sleep Apnea); as6 - Immunization history:: Adult Immunizations up to date. - Social history:: Smoking status: Patient denies any tobacco usage or history of. ROS: 15:46 Constitutional: Negative for fever, chills, and weight loss, sb4 15:46 Skin: Positive for multiple wounds, Exam: 20:37 Constitutional: This is a well developed, well nourished patient who is awake, alert, sb4 and in no acute distress. Head/Face: Normocephalic, atraumatic. Eyes: Extra-ocular motions intact. Periorbital areas with no swelling, redness, or edema. ENT: Mucous membranes moist. Cardiovascular: Regular rate and rhythm with a normal S1 and S2. Respiratory: Lungs have equal breath sounds bilaterally, clear to auscultation and percussion. No rales, rhonchi or wheezes noted. No increased work of breathing, no retractions or nasal flaring. Abdomen/GI: Soft, non-tender, no distension. MS/ Extremity: Pulses equal, no cyanosis. Neurovascular intact. Full, normal range of motion. 20:37 Skin: 8 inch wound left anterior bruno without any purulence or surrounding cellulitis. 1 cm and 2 cm circular draining wound right inguinal region with moderate purulence. 4 cm circumferential wound right lower abdominal with surrounding cellulitis, no drainage. Vital Signs: 15:33 BP 132 / 61; Pulse 99; Resp 18 S; Temp 98.9(O); Pulse Ox 97% on R/A; Weight 111.58 kg as6 (R); Height 5 ft. 2 in. (R); Pain 8/10; 17:41 BP 131 / 69; Pulse 89; Resp 18; Pulse Ox 98% on R/A; mb9 18:48 BP 125 / 76; Pulse 85; Resp 18; Pulse Ox 99% on R/A; mb9 15:33 Body Mass Index 44.99 (111.58 kg, 157.48 cm) as6 15:33 Pain Scale: Adult as6 MDM: 15:44 Patient medically screened. sb4 20:37 Data reviewed: vital signs, nurses notes, lab test result(s), radiologic studies, and sb4 as a result, I will admit patient. Consideration of Admission/Observation Patient was admitted/placed on observation. Care significantly affected by the following Social Determinants of Health: Poor access to healthcare and/or lack of insurance. Counseling: I had a detailed discussion with the patient and/or guardian regarding the historical points, exam findings, and any diagnostic results supporting the discharge/admit diagnosis, the presence of at least one elevated blood pressure reading (>120/80) during this emergency department visit, lab results, the need for further work-up and treatment in the hospital. 12/25 15:45 Order name: Wound Culture sb4 12/25 15:45 Order name: Blood Culture Adult (2); Complete Time: 17:00 sb4 12/25 15:45 Order name: CBC with Diff; Complete Time: 18:12 sb4 12/25 15:45 Order name: CMP; Complete Time: 17:15 sb4 12/25 15:45 Order name: Lactate w/ 2H reflex if indic.; Complete Time: 17:16 sb4 12/25 15:45 Order name: Protime (+inr); Complete Time: 17:02 sb4 12/25 15:45 Order name: Ptt, Activated; Complete Time: 17:02 sb4 12/25 16:55 Order name: Manual Differential; Complete Time: 18:12 EDMS 12/25 20:46 Order name: Basic Metabolic Panel EDMS 12/25 20:46 Order name: Basic Metabolic Panel; Complete Time: 17:00 EDMS 12/25 20:46 Order name: Basic Metabolic Panel EDMS 12/25 20:46 Order name: Basic Metabolic Panel EDMS 12/25 20:46 Order name: CBC with Automated Diff EDMS 12/25 20:46 Order name: CBC with Automated Diff; Complete Time: 17:00 EDMS 12/25 20:46 Order name: CBC with Automated Diff EDMS 12/25 20:46 Order name: CBC with Automated Diff EDMS 12/25 20:46 Order name: Magnesium EDMS 12/25 20:46 Order name: Magnesium; Complete Time: 17:00 EDMS 12/25 21:45 Order name: Glucose, Ancillary Testing; Complete Time: 21:47 EDMS 12/26 06:38 Order name: Manual Differential; Complete Time: 17:00 EDMS 12/26 06:38 Order name: CBC Smear Scan; Complete Time: 17:00 EDMS 12/26 07:30 Order name: Glucose, Ancillary Testing; Complete Time: 17:00 EDMS 12/26 11:24 Order name: Glucose, Ancillary Testing; Complete Time: 17:00 EDMS 12/25 18:02 Order name: CT Abd/Pelvis - IV Contrast Only; Complete Time: 18:35 sb4 12/25 15:45 Order name: IV Saline Lock - Large Bore; Complete Time: 16:53 sb4 12/25 15:45 Order name: Labs collected and sent; Complete Time: 16:53 sb4 12/25 17:03 Order name: Misc. Order: gown; Complete Time: 17:38 sb4 Administered Medications: 18:02 Drug: Ondansetron IVP 4 mg IVP once; over 2 minutes Route: IVP; Site: left antecubital; mb9 18:43 Follow up: Response: No adverse reaction mb9 18:09 Drug: morphine IVP or IV 4 mg IVP once over 4 mins Route: IVP; Infused Over: 4 mins; mb9 Site: left antecubital; 18:43 Follow up: Response: No adverse reaction mb9 Disposition Summary: 12/25/23 18:54 Hospitalization Ordered Notes: Hospitalization Status: Inpatient Admission sb4 Provider: Geovanny Arguello sb4 Condition: Fair sb4 Problem: new sb4 Symptoms: are unchanged sb4 Bed/Room Type: Standard sb4 Location: Telemetry/MedSurg (Inpatient)(12/26/23 15:48) eb Room Assignment: 204(12/26/23 15:48) eb Diagnosis - Neutropenia, unspecified sb4 - Cellulitis of abdominal wall sb4 Forms: - Medication Reconciliation Form sb4 - SBAR form sb4 - Leadership Thank You Letter sb4 Signatures: Dispatcher [employer] Tana Jenkins, RN RN Fabi Sutherland Ashby RN RN as6 Jessica Torres PAArmen PAKirbyC sb4 Raquel Denise RN RN mb9 Corrections: (The following items were deleted from the chart) 19:24 18:54 Telemetry/MedSurg (Inpatient) sb4 cg 19:24 18:54 sb4 cg 12/26 15:48 12/25 19:24 [facility] ER HOLD cg eb 12/26 15:48 12/25 19:24 ERHOLD- cg eb
--- NOTE | 2023-12-25 20:45 | P.HP ---
Certification for Inpatient Patient admitted to: Inpatient With expected LOS: >2 Midnights Practitioner: I am a practitioner with admitting privileges, knowledge of patient current condition, hospital course, and medical plan of care. Services: Services provided to patient in accordance with Admission requirements found in Title 42 Section 412.3 of the Code of Federal Regulations Patient History Date of Service: 12/26/23 Reason for admission: Cellulitis of anterior abdominal wall. History of Present Illness: 33-year-old male patient with medical history significant for recurrent abdominal wall cellulitis and multiple wounds in the extremities who has history of neutropenia who came to the emergency room with complaint of worsening infection in the anterior abdominal wall. he reported area of hyperemia and pain and discoloration in the anterior abdominal wall on the right side getting worse so he decided to come to the ED. He has had multiple intervention in the past and has chronic neutropenia for which he gets Neupogen dose. He has been on wound care on home basis and is yet to establish care with a wound care doctor secondary to insurance related issues. He denied overt episode of fever, chills, rigor, nausea, vomiting episode. Allergies No Known Allergies Allergy (Unverified 10/26/23 16:35) Home Medications: Gabapentin 1 tab PO TID 12/25/23 - Past Medical/Surgical History Diabetic: No -: Neutropenia -: Anemia -: Non healing wounds on the abdominal wall and the LLE -: Debriedement of the wounds on the left leg - Social History Alcohol use: No CD- Drugs: No Caffeine use: Yes Review of Systems General: Unremarkable Eyes: Unremarkable ENT: Unremarkable Respiratory: Unremarkable Cardiovascular: Unremarkable Gastrointestinal: Unremarkable Genitourinary: Unremarkable Musculoskeletal: Unremarkable Integumentary: Lesions Neurological: Unremarkable Lymphatics: Unremarkable Physical Examination - Physical Exam General: Alert, Oriented x3 HEENT: Atraumatic Neck: Supple Respiratory: Normal air movement Cardiovascular: Regular rate/rhythm, Normal S1 S2 Gastrointestinal: Soft and benign Musculoskeletal: No swelling Integumentary: Skin lesion, Tenderness/swelling, Erythema Neurological: Normal speech, Normal strength at 5/5 x4 extr - Studies Laboratory Data (last 24 hrs) 12/25/23 12/25/23 12/25/23 16:34 16:34 16:34 WBC 4.10 L Hgb 10.3 L Hct 30.8 L Plt Count 415 H PT 15.9 H INR 1.46 APTT 31.6 Sodium 131 L Potassium 4.1 BUN 13 Creatinine 1.02 Glucose 111 H Total Bilirubin 0.4 AST 16 ALT 18 Alkaline Phosphatase 50 Assessment and Plan - Plan Cellulitis/multiple wound. Presently on wound care on all bases. Will have wound center consultation placed for management recommendation. Consult Dr. Solorio as per patient request for outpatient wound care management. Will continue empiric antibiotic therapy with doxycycline and cefepime. Will continue pain control with Sidman and Tylenol. Neutropenia: Absolute neutrophil count is very low. Will start Neupogen for management. Prophylaxis: Lovenox for DVT prophylaxis CODE STATUS: Full code Disposition: We will treat his multiple wounds and he will be discharged once plan of care is finalized. - Advance Directives Does patient have a Living Will: No Does patient have a Durable POA for Healthcare: No
[2023-12-25] MEDS: INSULIN REGULAR (HUMAN) 100 UNIT/ML SQ SCH (21:00)
[2023-12-25] MEDS: NA CHLORIDE 0.9% 1,000 ML IV SCH (21:00)
[2023-12-25] MEDS ORDERED: NA CHLORIDE 0.9% 1,000 ML ONE (21:32)
[2023-12-25] MEDS ORDERED: ACETAMINOPHEN 325 MG TABLET ONE (21:32)
[2023-12-25] MEDS: ACETAMINOPHEN 325 MG TABLET PO PRN (21:35)
[2023-12-25 22:21] VITALS: BMI 44.8
[2023-12-25] MEDS ORDERED: HYDROCODONE/APAP 7.5/325 MG TAB ONE (23:41)
[2023-12-25] MEDS: HYDROCODONE/APAP 7.5/325 MG TAB PO PRN (23:43)
[2023-12-26] MEDS ORDERED: HYDROMORPHONE HCL 0.5 MG/0.5 ML INJ ONE ×4 (01:42→14:38)
[2023-12-26] MEDS: HYDROMORPHONE HCL 0.5 MG/0.5 ML INJ IV PRN (01:43)
[2023-12-26 04:35] LABS: Absolute Lymphocytes (CBC) 1.4 K/uL (0.7-4.9); Hematocrit 28.9 % (39.6-49.0); Lymphocytes % 40.3 % (15.3-44.8); MCV 79.7 fL (80-100); MPV 7.4 fL (7.6-11.3); Platelets 369 thou/uL (152-406); RBC Red Blood Cell Count 3.62 M/uL (4.33-5.43)
[2023-12-26 04:50] LABS: Magnesium 2.2 mg/dL (1.6-2.4)
[2023-12-26 06:37] LABS: Anisocytosis 1+; Blood Morphology Comment NOTED (NOT SEEN); Platelet Estimate ADEQ; White Blood Cell Scan DIFF (OK)
--- NOTE | 2023-12-26 07:15 | P.PN ---
Date of Service: 12/26/23 Subjective: admitted last night no significant change / no new/worsening symptoms wants to wait for dressing change until surgeon stops by; has photos of wounds on phone has not followed up with anyone since last debridement, but has been seen by [facility] insurance issues / cost as main reason for no follow up ROS: 10 point ROS as noted above, otherwise negative Physical Exam: GEN: Alert, oriented, NAD HEENT: Normal conjunctiva, sclera anicteric CV: Regular rate and rhythm, trace b/l lower extremity edema Pulm: Nonlabored respirations on room air, clear bilaterally ABD: Soft, nontender, nondistended Integumentary: chronic non-healing wounds of left bruno, right lower abdomen / groin region covered with dressings Neuro: Normal speech, normal affect vitals reviewed Problem List: Cellulitis of anterior abdominal wall Multiple chronic non-healing wounds, s/p multiple past debridements of left leg Chronic / congenital Neutropenia Obstructive Sleep Apnea hx of tobacco use Cellulitis anterior abdominal wall Multiple chronic non-healing wounds, s/p multiple past debridements Patient reported worsening chronic wounds recently. Had debridement of LLE done 10/28/[address] Solorio. +necrotic tissue found at the time. treated with IV cefepime / vanc while hospitalized. Discharged on 10 days of PO doxy / cipro. has not been able to follow up due to insurance / cost issues Reports requiring multiple surgical interventions / debridement in the past in [place]. CT abdomen (12/25): cholelithiasis, hepatomegaly with steatosis, trace pericardial effusion, small umbilical hernia General surgery consulted - Dr. 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 fever
[2023-12-26] MEDS ORDERED: NA CHLORIDE 0.9% 1,000 ML ONE (07:24)
[2023-12-26] MEDS: GABAPENTIN 400 MG CAP PO SCH (09:00)
[2023-12-26] MEDS: ENOXAPARIN 40 MG/0.4 ML SQ SCH (09:00)
[2023-12-26] MEDS: TBO-FILGRASTIM 300 MCG/0.5 ML SYR SQ SCH (09:00)
[2023-12-26] MEDS: CEFEPIME 1 GM in NA CHLORIDE 0.9% 100 ML IV SCH (09:00)
[2023-12-26] MEDS: DOXYCYCLINE 100 MG in NA CHLORIDE 0.9% 100 ML IVPB SCH (09:00)
[2023-12-26] MEDS ORDERED: DOXYCYCLINE HYCLATE 100MG INJ ONE (09:14)
[2023-12-26] MEDS ORDERED: NA CHLORIDE 0.9% 200 ML ONE (09:14)
[2023-12-26] MEDS ORDERED: CEFEPIME 1 GM/VIAL ONE (09:14)
[2023-12-26] MEDS ORDERED: ENOXAPARIN 40 MG/0.4 ML SQ ONE (09:14)
[2023-12-26] MEDS ORDERED: HYDROCODONE/APAP 7.5/325 MG TAB ONE (11:10)
--- NOTE | 2023-12-26 14:37 | CON ---
Date of Consultation: 12/26/2023 Diagnosis: Multiple abdominal wounds and leg wounds. History Of Present Illness: This is the case of a 33-year-old patient dealing with years with multip le wounds in the abdomen and leg requiring not only surgical dressing changes but also a skin graft. He has been in multiple wound centers. He is currently a patient of Dr. Solorio who is out of town at this moment so the ER asked me to cover him until he comes back. I do not have exactly the plan t hat he had for this wound care. The patient is telling me at this moment he is using basically Xerof orm and just cleaning the area nicely. Once again, he stated that his abdomen the way looks right no w is how his legs looked in the past. He has been diagnosed before with possible pyoderma and then a fter that he says they found that is not the case. Once again, the entire story is not specific. Ho pefully, when we get Dr. Solorio on Thursday, we can clarify this. In the meantime, we are going to he lp him over the weekend. Allergies: NONE. Medication: Gabapentin. Medical History: Neutropenia, anemia. Social History: He does not smoke. He does not drink alcohol. Review of Systems: See HPI. Otherwise unremarkable. Physical Examination: General: The patient is awake, alert. HEENT: Pupils are equal and reactive. Anicteric. Neck: Supple. Chest: Clear. Heart: S1, S2. Abdomen: Soft and depressible. No guarding or rebound. No peritoneal signs. Integumentary: 2 open ulcers, one in the right mid abdomen in the midaxillary line, another one just near the inguinal region. There are open areas. There is no necrosis present. No fluctuance seen at this moment. The left leg shows he does not want to open his dressings, but he shows the picture how it looked a few days ago and how Dr. Solorio has been dealing with this and I see excellent granu lation tissue in that area. Plan: From the surgical standpoint, the abdominal wound we will use mupirocin in the meantime if he has no allergies. If this deteriorates and delineates in the next few days, he may need debridement of those areas. I will follow the patient with you. Continue the antibiotics. HM/MODL Voice ID: [id number] Report ID: [id number]
[2023-12-26] MEDS ORDERED: ACETAMINOPHEN 325 MG TABLET ONE (15:55)
[2023-12-26] MEDS ORDERED: VANCOMYCIN 2 GM in NA CHLORIDE 0.9% 500 ML IVPB SCH (18:00)
[2023-12-26] MEDS: VANCOMYCIN 2 GM in NA CHLORIDE 0.9% 500 ML IVPB SCH (18:00)
[2023-12-26] MEDS: VANCOMYCIN 1 GM/VIAL ONE (19:30)
[2023-12-26] MEDS: NA CHLORIDE 0.9% 500 ML ONE (19:35)
[2023-12-26] MEDS ORDERED: VANCOMYCIN 1.5 GM in NA CHLORIDE 0.9% 500 ML IVPB SCH (21:00)
[2023-12-27 03:23] LABS: Absolute Lymphocytes (CBC) 1.9 K/uL (0.7-4.9); Hematocrit 29.8 % (39.6-49.0); Lymphocytes % 32.6 % (15.3-44.8); MPV 8.3 fL (7.6-11.3); Platelets 294 thou/uL (152-406); RBC Red Blood Cell Count 3.72 M/uL (4.33-5.43)
[2023-12-27 03:39] LABS: ALT/SGPT 16 U/L (16-61); Albumin 2.1 g/dL (3.4-5.0); Alkaline Phosphatase 43 U/L (45-117); BUN Blood Urea Nitrogen 14 mg/dL (7-18); Bicarbonate 29 mEq/L (21-32); Bilirubin Total 0.5 mg/dL (0.2-1.0); Glomerular Filtration Rate 107 ml/min (=/>90); Glucose Level 128 mg/dL (74-106); Potassium 4.1 mEq/L (3.5-5.1); Protein, Total 8.4 g/dL (6.4-8.2); Sodium Level 132 mEq/L (136-145)
[2023-12-27 03:40] LABS: AST/SGOT < 4 U/L (15-37)
--- NOTE | 2023-12-27 08:34 | P.PN ---
Date of Service: 12/27/23 Subjecative: Feels hotter, +reports increased sweating; +101.1 fever yesterday has been hesitant to get dressing changes secondary to pain but agreeable to have them changed today Breathing okay on room air. +nausea and headache ROS: 10 point ROS as noted above, otherwise negative Physical Exam: GEN: Alert, oriented, NAD HEENT: Normal conjunctiva, sclera anicteric CV: Regular rate and rhythm, trace b/l lower extremity edema Pulm: Nonlabored respirations on room air, clear bilaterally ABD: Soft, nontender, nondistended Integumentary: chronic non-healing wounds of left bruno, right lower abdomen (See nurse notes for photos taken today) Neuro: Normal speech, normal affect vitals reviewed Problem List: Cellulitis of anterior abdominal wall Multiple chronic non-healing wounds, s/p multiple past debridements of left leg Chronic / congenital Neutropenia Obstructive Sleep Apnea hx of tobacco use Cellulitis anterior abdominal wall Multiple chronic non-healing wounds, s/p multiple past debridements of left leg Patient reported worsening chronic wounds recently. Had debridement of LLE done 10/28/[address] Solorio. +necrotic tissue found at the time. treated with IV cefepime / vanc while hospitalized. Discharged on 10 days of PO doxy / cipro. has not been able to follow up due to insurance / cost issues Reports requiring multiple surgical interventions / debridement in the past in [place]. CT abdomen (12/25): cholelithiasis, hepatomegaly with steatosis, trace pericardial effusion, small umbilical hernia General surgery consulted to eval for possible surgical intervention Dr. Frederick recommending medical management / local wound care for now may need I&D in next few days if minimal / no improvement. 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
[2023-12-27] MEDS: ONDANSETRON 4 MG/2 ML VIAL IV PRN (12:59)
[2023-12-28 03:49] LABS: Absolute Lymphocytes (CBC) 1.2 K/uL (0.7-4.9); Hematocrit 27.3 % (39.6-49.0); Lymphocytes % 32.9 % (15.3-44.8); MCV 80.2 fL (80-100); MPV 8.8 fL (7.6-11.3); Platelets 255 thou/uL (152-406); RBC Red Blood Cell Count 3.41 M/uL (4.33-5.43)
[2023-12-28 03:57] LABS: Magnesium 2.1 mg/dL (1.6-2.4); Potassium 3.5 mEq/L (3.5-5.1)
--- NOTE | 2023-12-28 07:56 | P.PN ---
Date of Service: 12/28/23 Subjecative: tolerated dressing changes yesterday no acute events overnight reporting ongoing pain, but nothing new CPAP at night afebrile ROS: 10 point ROS as noted above, otherwise negative Physical Exam: GEN: Alert, oriented, NAD HEENT: Normal conjunctiva, sclera anicteric CV: Regular rate and rhythm, trace b/l lower extremity edema Pulm: Nonlabored respirations on room air, clear bilaterally ABD: Soft, nontender, nondistended Integumentary: chronic non-healing wounds of left bruno, right lower abdomen Neuro: Normal speech, normal affect vitals reviewed Problem List: Cellulitis of anterior abdominal wall Multiple chronic non-healing wounds, s/p multiple past debridements of left leg Chronic / congenital Neutropenia Obstructive Sleep Apnea hx of tobacco use Cellulitis anterior abdominal wall Multiple chronic non-healing wounds, s/p multiple past debridements of left leg Patient reported worsening chronic wounds recently. Had debridement of LLE done 10/28/[address] Solorio. +necrotic tissue found at the time. treated with IV cefepime / vanc while hospitalized. Discharged on 10 days of PO doxy / cipro. has not been able to follow up due to insurance / cost issues Reports requiring multiple surgical interventions / debridement in the past in [place]. CT abdomen (12/25): cholelithiasis, hepatomegaly with steatosis, trace pericardial effusion, small umbilical hernia General surgery consulted to eval for possible surgical intervention recommending medical management / local wound care for now may need I&D in next few days if minimal / no improvement. continue local wound care with mupirocin wound cx (12/25): Pseudomonas Aeruginosa, Staph Aureus continue IV cefepime / vanc (12/26-) ID consulted PRN analgesics / antiemetics IV fluids dc'd patient is hard stick, lost multiple IVs, not wanting more, asking for midline/picc Chronic /congenital Neutropenia filgrastim added 12/26 absolute neutrophils count 0.1L -> 0.1 (12/28) states he has typically been in this range was recently hospitalized ~6 weeks ago and remained in that range, was 0.1 on discharge has not followed up with bioinformatics assistant in "a while"; currently no heme/onc intervention nurse here at this time continue empiric antibiotics as noted above Obstructive Sleep Apnea uses CPAP at night VTE: Lovenox Code: Full Dispo: Home, ~2-3 days Pending afebrile > 24 hrs, may need I&D next few days
[2023-12-28] MEDS: Mupirocin NASAL 2 APPL/1 GM TUBE NAS SCH (11:18)
--- NOTE | 2023-12-28 11:41 | RAD REPORT ---
EXAM DESCRIPTION: RAD - Chest Single View - 12/28/2023 11:34 am CLINICAL HISTORY: Device placement PICC line placement IMPRESSION: PICC line with its tip in the superior vena cava
--- NOTE | 2023-12-28 12:57 | P.CNS ---
Date of Consult: 12/28/23 Reason for Consult: neutropenia, recurrent infections Chief Complaint: Cellulitis of anterior abdominal wall. History of Present Illness: "33-year-old male patient with medical history significant for recurrent abdominal wall cellulitis and multiple wounds in the extremities who has history of neutropenia who came to the emergency room with complaint of worsening infection in the anterior abdominal wall. he reported area of hyperemia and pain and discoloration in the anterior abdominal wall on the right side getting worse so he decided to come to the ED. He has had multiple intervention in the past and has chronic neutropenia for which he gets Neupogen dose. He has been on wound care on home basis and is yet to establish care with a wound care doctor secondary to insurance related issues" Allergies No Known Allergies Allergy (Unverified 10/26/23 16:35) Home medications list reviewed: Yes Home Medications: Gabapentin 1 tab PO TID 12/25/23 - Past Medical/Surgical History Diabetic: No -: Neutropenia -: Anemia -: Non healing wounds on the abdominal wall and the LLE -: Debriedement of the wounds on the left leg - Social History Alcohol use: No CD- Drugs: No Caffeine use: Yes Place of Residence: Home Review of Systems 10-point ROS is otherwise unremarkable Musculoskeletal: Leg Pain Integumentary: Other (Abdominal wall wounds. Left lower extremity wounds. Chronic. ) Physical Examination Temp Pulse Resp BP Pulse Ox 98.0 F 92 H 18 114/63 94 12/28/23 08:00 12/28/23 04:00 12/28/23 09:57 12/28/23 08:00 12/28/23 09:57 General: Alert, In no apparent distress, Oriented x3 HEENT: Atraumatic, Normocephalic Neck: Supple Respiratory: Normal air movement, Diminished Cardiovascular: Regular rate/rhythm, Edema Gastrointestinal: Normal bowel sounds, Soft and benign, Non-distended Integumentary: Cyanosis (Adbominal wall wounds. Left lower extremity wound chronic.) Neurological: Normal speech, Normal tone Laboratory Data - Reviewed Microbiology Data - Reviewed Imagings Data: - Reviewed Conclusions/Impression: Problem List Cellulitis abdominal wall Chronic Nonhealing wounds to left lower extremity and abdomen Neutropenia Obstructive Sleep Apnea Cellulitis abdominal wall Chronic Nonhealing wounds to left lower extremity and abdomen - Patient has been in and out of the hospital for the past year due to chronic nonhealing wounds. He has had multiple debridements of LLE wound. - Abdominal Wound cultures 12/25: Pseudomonas aeruginosa and Staphyloccous aureus - Currently on Cefepime and Vancomycin Recommendations - Cellulitis: continue antibiotic therapy for 14 days. Continue Cefepime and Vancomycin for now. - Wound care per wound care team - Monitor CBC - Continue supportive care Case discussed with Talon Post
[2023-12-28] MEDS: VANCOMYCIN 2 GM in NA CHLORIDE 0.9% 500 ML IVPB SCH (17:19)
[2023-12-29 06:24] LABS: Absolute Lymphocytes (CBC) 1.3 K/uL (0.7-4.9); Hematocrit 27.2 % (39.6-49.0); Lymphocytes % 28.7 % (15.3-44.8); MCV 79.9 fL (80-100); Platelets 261 thou/uL (152-406)
[2023-12-29 06:40] LABS: Magnesium 2.1 mg/dL (1.6-2.4); Potassium 4.3 mEq/L (3.5-5.1)
[2023-12-29 08:25] LABS: White Blood Cell Scan OK (OK)
[2023-12-29 08:27] LABS: Anisocytosis 1+; Blood Morphology Comment NOTED (NOT SEEN); Dohle Bodies PRESENT; Platelet Estimate ADEQ; Toxic Granulation 1+
--- NOTE | 2023-12-29 09:28 | P.PN ---
Date of Service: 12/29/23 Chief Complaint: Cellulitis of anterior abdominal wall. Subjective: In no apparent distress. No acute events overnight. + left lower leg pain + decreased appetite Physical Examination Temp Pulse Resp BP Pulse Ox 98.6 F 102 H 18 117/58 L 93 12/29/23 04:00 12/29/23 04:00 12/29/23 08:55 12/29/23 04:00 12/29/23 04:00 General: Alert, In no apparent distress, Oriented x3 HEENT: Atraumatic, Normocephalic Neck: Supple Respiratory: Normal air movement, Diminished Cardiovascular: Regular rate/rhythm, Edema Gastrointestinal: Normal bowel sounds, Soft and benign, Non-distended Integumentary: Abdominal wall wounds. Left lower extremity wound chronic. Neurological: Normal speech, Normal tone Laboratory Data - Reviewed Microbiology Data - Reviewed Imagings Data: - Reviewed Medications List: reviewed Assessment and Plan Problem List Cellulitis abdominal wall Chronic Nonhealing wounds to left lower extremity and abdomen Neutropenia Obstructive Sleep Apnea Cellulitis abdominal wall Chronic Nonhealing wounds to left lower extremity and abdomen - Patient has been in and out of the hospital for the past year due to chronic nonhealing wounds. He has had multiple debridements of LLE wound. - Abdominal Wound cultures 12/25: Pseudomonas aeruginosa and Staphyloccous aureus - Currently on Cefepime and Vancomycin (started 12/26) Recommendations - Cellulitis: continue antibiotic therapy for 14 days. Currently on Cefepime and Vancomycin, continue for now. Consider switch to Ciprofloxacin PO upon discharge to complete remainder of antibiotic course. - Continue wound care per wound care team - Monitor CBC - Continue supportive care Case discussed with Talon Post
--- NOTE | 2023-12-29 14:47 | P.PN ---
Subjective Date of Service: 12/29/23 Chief Complaint: Cellulitis of anterior abdominal wall. Patient has no new complaint. He has been afebrile. He has been tolerating his diet. No issues overnight. Physical Examination - Vital Signs Temperature: 97.9 F Blood Pressure: 133/58 Pulse: 94 Respirations: 18 Pulse Ox (%): 93 Assessment And Plan - Plan Physical Exam: GEN: Alert, oriented, NAD HEENT: Normal conjunctiva, sclera anicteric CV: Regular rate and rhythm, trace b/l lower extremity edema Pulm: Clear to auscultation bilaterally ABD: Soft, nontender, nondistended Integumentary: chronic non-healing wounds of left bruno, right lower abdomen Neuro: Normal speech, normal affect vitals reviewed Diagnosis Cellulitis of anterior abdominal wall Multiple chronic non-healing wounds, s/p multiple past debridements of left leg Chronic / congenital Neutropenia Obstructive Sleep Apnea hx of tobacco use Cellulitis anterior abdominal wall Multiple chronic non-healing wounds, s/p multiple past debridements of left leg Status post debridement of LLE done 10/28/[address] Solorio. +necrotic tissue found at the time. treated with IV cefepime / vanc while hospitalized. Discharged on 10 days of PO doxy / cipro. Was not able to follow up due to insurance / cost issues History of multiple surgical interventions / debridement in the past in [place] for the same wound. CT abdomen (12/25): cholelithiasis, hepatomegaly with steatosis, trace pericardial effusion, small umbilical hernia General surgery consulted to eval for possible surgical intervention Dr. Frederick recommended medical management with local wound care for now and monitor for need for surgical debridement. On local wound care with mupirocin wound cx (12/25): Pseudomonas Aeruginosa, Staph Aureus continue IV cefepime / vanc (12/26-) ID is following. PRN analgesics / antiemetics Patient may be a candidate for LTAC placement. Chronic /congenital Neutropenia Filgrastim started since 12/26 absolute neutrophils count 0.1L -> 0.4 (12/29) states he has typically been in this range was recently hospitalized ~6 weeks ago and remained in that range, was 0.1 on discharge No hematology oncology on-call. continue empiric antibiotics as noted above Obstructive Sleep Apnea CPAP at night VTE: Lovenox Code: Full Dispo:LTAC
[2023-12-30] MEDS: CEFEPIME 2 GM in NA CHLORIDE 0.9% 100 ML IV SCH (08:46)
--- NOTE | 2023-12-30 14:43 | P.PN ---
Subjective Date of Service: 12/30/23 Chief Complaint: Cellulitis of anterior abdominal wall. Patient has no new complaint. He has been afebrile. He has good oral intake. Physical Examination - Vital Signs Temperature: 97.0 F Blood Pressure: 106/50 Pulse: 72 Respirations: 14 Pulse Ox (%): 99 Assessment And Plan - Plan Physical Exam: GEN: Alert, oriented, NAD HEENT: Normal conjunctiva, sclera anicteric CV: Regular rate and rhythm, trace b/l lower extremity edema Pulm: Clear to auscultation bilaterally ABD: Soft, nontender, nondistended Integumentary: chronic non-healing wounds of left bruno, right lower abdomen Neuro: Normal speech, normal affect vitals reviewed Diagnosis Cellulitis of anterior abdominal wall Multiple chronic non-healing wounds, s/p multiple past debridements of left leg Chronic / congenital Neutropenia Obstructive Sleep Apnea hx of tobacco use Cellulitis anterior abdominal wall Multiple chronic non-healing wounds, s/p multiple past debridements of left leg Status post debridement of LLE done 10/28/[address] Solorio. +necrotic tissue found at the time. treated with IV cefepime / vanc while hospitalized. Discharged on 10 days of PO doxy / cipro. Was not able to follow up due to insurance / cost issues History of multiple surgical interventions / debridement in the past in [place] for the same wound. CT abdomen (12/25): cholelithiasis, hepatomegaly with steatosis, trace pericar dial effusion, small umbilical hernia General surgery consulted to eval for possible surgical intervention Dr. Frederick recommended medical management with local wound care for now and monitor for need for surgical debridement. Patient is leg wound looks more inflamed and necrotic. Case discussed with Dr. Frederick who would reevaluate. Congenital neutropenia related pyoderma gangrenosum suspected On local wound care with mupirocin wound cx (12/25): Pseudomonas Aeruginosa, Staph Aureus continue IV cefepime / vanc (12/26-) ID is following. PRN analgesics / antiemetics Patient is being evaluated for LTAC placement. Chronic /congenital Neutropenia Filgrastim started since 12/26 absolute neutrophils count 0.1L -> 0.4 (12/29) states he has typically been in this range was recently hospitalized ~6 weeks ago and remained in that range, was 0.1 on discharge No hematology oncology on-call. continue empiric antibiotics as noted above Obstructive Sleep Apnea CPAP at night VTE: Lovenox Code: Full Dispo:LTAC
[2023-12-31 04:30] LABS: Hematocrit 27.2 % (39.6-49.0); Lymphocytes % 31.5 % (15.3-44.8); MCV 79.9 fL (80-100); MPV 8.7 fL (7.6-11.3); Platelets 238 thou/uL (152-406); RBC Red Blood Cell Count 3.41 M/uL (4.33-5.43)
[2023-12-31 04:40] LABS: Potassium 3.8 mEq/L (3.5-5.1)
--- NOTE | 2023-12-31 08:23 | P.PN ---
Date of Service: 12/31/23 Chief Complaint: Cellulitis of anterior abdominal wall. Subjective: In no apparent distress. No acute events overnight. + left lower leg pain Otherwise no new or worsening complaints at this time. Physical Examination Temp Pulse Resp BP Pulse Ox 97.3 F 70 18 144/56 H 97 12/31/23 04:00 12/31/23 04:00 12/31/23 04:47 12/31/23 04:00 12/31/23 04:47 General: Alert, In no apparent distress, Oriented x3 HEENT: Atraumatic, Normocephalic Neck: Supple Respiratory: Normal air movement, Diminished Cardiovascular: Regular rate/rhythm, Edema Gastrointestinal: Normal bowel sounds, Soft and benign, Non-distended Integumentary: Abdominal wall wounds. Left lower extremity wound chronic. Neurological: Normal speech, Normal tone Laboratory Data - Reviewed Microbiology Data - Reviewed Imagings Data: - Reviewed Medications List: reviewed Assessment and Plan Problem List Cellulitis abdominal wall Chronic Nonhealing wounds to left lower extremity and abdomen Suspected Pyoderma Gangrenosum Congenital Neutropenia Obstructive Sleep Apnea Cellulitis abdominal wall Chronic Nonhealing wounds to left lower extremity and abdomen Suspected Pyoderma Gangrenosum - Patient has been in and out of the hospital for the past year due to chronic nonhealing wounds. He has had multiple debridements of LLE wound. - Abdominal Wound cultures 12/25: Pseudomonas aeruginosa and Staphyloccous aureus - Currently on Cefepime and Vancomycin (started 12/26) Recommendations - Cellulitis: continue antibiotic therapy for 14 days. Currently on Cefepime and Vancomycin, continue for now. Consider switch to Ciprofloxacin PO upon discharge to complete remainder of antibiotic course. - Continue wound care per wound care team - Continue supportive care - Recommend following up with showroom sales consultant as outpatient Case discussed with Talon Post
--- NOTE | 2023-12-31 14:54 | P.PN ---
Subjective Date of Service: 12/31/23 Chief Complaint: Cellulitis of anterior abdominal wall. No new complaint. He has good oral intake. He reports pain in the left leg. Physical Examination - Vital Signs Temperature: 97.3 F Blood Pressure: 100/64 Pulse: 94 Respirations: 16 Pulse Ox (%): 98 - Studies Microbiology Data (last 24 hrs): 12/25/23 16:18 Blood - Blood Aerobic Blood Culture - Final No growth in 5 days. 12/25/23 16:18 Blood - Blood Anaerobic Blood Culture - Final No growth in 5 days. 12/25/23 16:34 Blood - Blood Aerobic Blood Culture - Final No growth in 5 days. 12/25/23 16:34 Blood - Blood Anaerobic Blood Culture - Final No growth in 5 days. Assessment And Plan - Plan Physical Exam: GEN: Alert, oriented, NAD HEENT: Normal conjunctiva, sclera anicteric CV: Regular rate and rhythm, trace b/l lower extremity edema Pulm: Clear to auscultation bilaterally ABD: Soft, nontender, nondistended Integumentary: chronic non-healing wounds of left bruno, right lower abdomen Neuro: Normal speech, normal affect vitals reviewed Diagnosis Cellulitis of anterior abdominal wall Multiple chronic non-healing wounds, s/p multiple past debridements of left leg Chronic / congenital Neutropenia Obstructive Sleep Apnea hx of tobacco use Cellulitis anterior abdominal wall Multiple chronic non-healing wounds, s/p multiple past debridements of left leg Status post debridement of LLE done 10/28/[address] Sloorio. +necrotic tissue found at the time. treated with IV cefepime / vanc while hospitalized. Discharged on 10 days of PO doxy / cipro. Was not able to follow up due to insurance / cost issues History of multiple surgical interventions / debridement in the past in [place] for the same wound. CT abdomen (12/25): cholelithiasis, hepatomegaly with steatosis, trace pericardial effusion, small umbilical hernia General surgery consulted to eval for possible surgical intervention Dr. Frederick recommended medical management with local wound care for now and monitor for need for surgical debridement. Patient leg ulcer looks more inflamed and necrotic. Case discussed with Dr. Frederick who would reevaluate. Congenital neutropenia related pyoderma gangrenosum suspected On local wound care with mupirocin wound cx (12/25): Pseudomonas Aeruginosa, Staph Aureus continue IV cefepime / vanc (12/26-) ID is following. Patient may benefit from wound biopsy PRN analgesics / antiemetics Patient is being evaluated for LTAC placement. Chronic /congenital Neutropenia Filgrastim started since 12/26 absolute neutrophils count improved up to 1600. No hematology oncology on-call. continue empiric antibiotics as noted above. Discontinue filgrastim. Obstructive Sleep Apnea CPAP at night VTE: Lovenox Code: Full Dispo:LTAC
[2024-01-01 02:50] LABS: Hematocrit 25.5 % (39.6-49.0); Lymphocytes % 31.2 % (15.3-44.8); MCV 78.9 fL (80-100); MPV 8.5 fL (7.6-11.3); Platelets 261 thou/uL (152-406); RBC Red Blood Cell Count 3.23 M/uL (4.33-5.43)
[2024-01-01 09:09] VITALS: O2SAT 96
--- NOTE | 2024-01-01 12:40 | P.DS ---
Admission Date: 12/25/23 Discharge Date: 01/01/24 Disposition: [facility] Discharge Condition: FAIR Reason for Admission: Cellulitis of anterior abdominal wall. Brief History of Present Illness: 33-year-old male patient with medical history significant for recurrent abdominal wall cellulitis and multiple wounds in the extremities who has history of neutropenia who came to the emergency room with complaint of worsening infection in the anterior abdominal wall. He reported area of hyperemia and pain and discoloration in the anterior abdominal wall on the right side getting worse so he decided to come to the ED. He has had multiple intervention in the past and has chronic neutropenia for which he gets Neupogen. He has been on wound care on home basis and is yet to establish care with a wound care doctor secondary to insurance related issues. He denied overt episode of fever, chills, rigor, nausea, vomiting episode. Patient was hospitalized for further management. Hospital Course: Diagnosis Cellulitis of anterior abdominal wall Multiple chronic non-healing wounds, s/p multiple past debridements of left leg Chronic / congenital Neutropenia Obstructive Sleep Apnea hx of tobacco use Patient admitted to the medical floor and the following medical problems addressed: Cellulitis anterior abdominal wall Multiple chronic non-healing wounds, s/p multiple past debridements of left leg Status post debridement of LLE done 10/28/[address] Solorio. +necrotic tissue found at the time. treated with IV cefepime / vanc while hospitalized. Discharged on 10 days of PO doxy / cipro. Was not able to follow up due to insurance / cost issues History of multiple surgical interventions / debridement in the past in [place] for the same wound. CT abdomen (12/25): cholelithiasis, hepatomegaly with steatosis, trace pericardial effusion, small umbilical hernia General surgery consulted to eval for possible surgical intervention Dr. Frederick recommended medical management with local wound care for now and monitor for need for surgical debridement. Patient leg ulcer looks more inflamed and necrotic. Congenital neutropenia related pyoderma gangrenosum suspected On local wound care with mupirocin wound cx (12/25): Pseudomonas Aeruginosa, Staph Aureus On IV cefepime and vanc (12/26-) ID is following. Patient may benefit from wound biopsy. Dr. Frederick recommended outpatient wound biopsy PRN analgesics / antiemetics Patient is accepted to LTAC. Vitals are stable for transfer. Chronic /congenital Neutropenia Filgrastim given from 12/26 - 12/31 absolute neutrophils count improved up to 1900. No hematology oncology on-call. Obstructive Sleep Apnea CPAP at night Vital Signs/Physical Exam: Temp Pulse Resp BP Pulse Ox 96.8 F 66 20 93/53 L 96 01/01/24 08:00 01/01/24 08:00 01/01/24 08:00 01/01/24 08:00 01/01/24 08:00 General: Alert, In no apparent distress, Oriented x3, Obese HEENT: Mucous membr. moist/pink Neck: JVD not distended Respiratory: Clear to auscultation bilaterally, Normal air movement Cardiovascular: Regular rate/rhythm, Normal S1 S2 Gastrointestinal: Soft and benign, Non-distended Integumentary: Other (Large volacious ulcer left bruno, ulcers right lower abdomen) Laboratory Data at Discharge: WBC 6.40 thou/uL (4.3-10.9) 01/01/24 02:31 Hgb 8.6 g/dL (13.6-17.9) L 01/01/24 02:31 Hct 25.5 % (39.6-49.0) L 01/01/24 02:31 Plt Count 261 thou/uL (152-406) 01/01/24 02:31 PT 15.9 SECONDS (9.5-12.5) H 12/25/23 16:34 INR 1.46 12/25/23 16:34 APTT 31.6 SECONDS (24.3-36.9) 12/25/23 16:34 Sodium 137 mEq/L (136-145) 01/01/24 02:31 Potassium 4.0 mEq/L (3.5-5.1) 01/01/24 02:31 BUN 12 mg/dL (7-18) 01/01/24 02:31 Creatinine 0.72 mg/dL (0.70-1.30) 01/01/24 02:31 Glucose 112 mg/dL (74-106) H 01/01/24 02:31 Magnesium 2.1 mg/dL (1.6-2.4) 12/29/23 06:17 Total Bilirubin 0.5 mg/dL (0.2-1.0) 12/27/23 02:29 AST < 4 U/L (15-37) L 12/27/23 02:29 ALT 16 U/L (16-61) 12/27/23 02:29 Alkaline Phosphatase 43 U/L (45-117) L 12/27/23 02:29 Home Medications: Gabapentin 1 tab PO TID 12/25/23 Acetaminophen [Tylenol*] 650 mg PO Q4HP PRN tab 01/01/24 Enoxaparin Sodium [Lovenox 40 MG INJ*] 40 mg SQ DAILY syr 01/01/24 Hydrocodone 7.5/APAP 325 [Mcdade 7.5/325 mg*] 1 tab PO Q6H PRN tab 01/01/24 Hydromorphone [Dilaudid] 0.5 mg IV Q4H PRN syr 01/01/24 Mupirocin Calcium [Bactroban Nasal*] 1 appl DANIELLE BID tube 01/01/24 Ondansetron [Zofran*] 4 mg IV Q6HP PRN vial 01/01/24 Physician Discharge Instructions: [facility] Referral [address] [place] [address] P:[phone] Diet: Regular Followup: NONE,NONE [Primary Care Provider] - Time spent managing pt's care (in minutes): 36
[2024-01-01 14:18] VITALS: BP 146/78; TEMP 97.1
--- NOTE | 2024-01-01 19:33 | PN ---
Date of Progress Note: 01/01/2024 Reason For Service: Open wounds in the abdomen and left leg. Subjective: This is the case of a 33-year-old patient with a long-term history of abdominal wound. He has more than a year with his left leg that we noticed to have received multiple treatments by [facility] doctors including surgeons, Wound Care. I saw pictures of previous skin grafts, skin substitut e, multiple dressings. He also has the abdominal wounds been like that since July of last year. He was diagnosed at one point with pyoderma gangrenosum and then after they said, it might not be. The history continues. Recently, was seen by a surgeon in this area, but he could not follow up wit h outpatient he claimed because his insurance does not cover doctors outside. So, he came this time and we have been doing dressing changes for the last few days. This is a chronic situation. Objective: General: At this moment, he is awake, alert, oriented x3. Abdomen: Soft and depressible. No guarding or rebound. Integumentary: Obviously shows the abdominal wound and the left leg area shows some evidence of an a ctive disease in the sense there is no pressure in that area. There is no venous stasis disease, but it could be an autoimmune in origin. Assessment And Plan: The medical doctors are working on not only controlling the autoimmune, but als o improving his condition, his nutrition, and bacteria colonization. This patient eventually may nee d debridement of those areas. He has been on debridements multiple times that I can see in the chart and his pictures and history. Once they control this current active situation, then we might have t o go there and do a debridement. At this moment, he is very aware of the dressings. He remember abby ry dressing he has tried for the last few years. He wants to stay right now with the iodoform becaus e that is what he can tolerate at this moment. We are okay with soap and water. He can take a showe r with dressings off. He is going to go to a long-term facility. We are going to do continuation of care. We advised him many times to make sure he [facility] discharged. HM/MODL Voice ID: [id number] Report ID: [id number]
== END 2024-01-01 16:55 | DRG 603 ==
LOC: ER 15:11 → ERHOLD 20:41 → 2ND 12-26 16:03
PROVIDERS: ADMIT Internal Medicine Nephrology; ATTEND Internal Medicine
PROC: 02HV33Z Insertion of Infusion Device into Superior Vena Cava, Percutaneous Approach (ICD-10-PCS; principal; 2023-12-28)
DX: L03.311 Cellulitis of abdominal wall (principal); I31.39 Other pericardial effusion (noninflammatory); L88 Pyoderma gangrenosum; L97.829 Non-pressure chronic ulcer of other part of left lower leg with unspecified severity; G47.33 Obstructive sleep apnea (adult) (pediatric); D70.0 Congenital agranulocytosis; K76.0 Fatty (change of) liver, not elsewhere classified; K42.9 Umbilical hernia without obstruction or gangrene; K80.20 Calculus of gallbladder without cholecystitis without obstruction; B96.5 Pseudomonas (aeruginosa) (mallei) (pseudomallei) as the cause of diseases classified elsewhere; B95.61 Methicillin susceptible Staphylococcus aureus infection as the cause of diseases classified elsewhere; R16.0 Hepatomegaly, not elsewhere classified
CPT/HCPCS: 36415; 71045; 74177; 80048; 80053; 80202; 82947; 83605; 83735; 85025; 85610; 85730; 87040; 87070; 87077; 87186; 87205; 94660; 94760; 94762; 96374; 96375; 99285; J0692; J1170; J1447; J1650; J2405; J7030; J7040; Q9967

== ENCOUNTER 2024-04-05 14:42 | Emergency (ER) | payer OTHER ==
[2024-04-05] MEDS ORDERED: FENTANYL CITR 100 MCG/2 ML ONE (16:57)
[2024-04-05] MEDS ORDERED: NA CHLORIDE 0.9% 500 ML ONE (17:33)
[2024-04-05 17:36] LABS: Absolute Eosinophils 0.3 K/uL (0-0.5); Absolute Lymphocytes (CBC) 1.3 K/uL (0.7-4.9); Absolute Monocytes 0.7 K/uL (0.1-1.3); Absolute Neutrophil 0.1 K/uL (1.8-8.0); Basophils % 1.3 % (0-1.3); Eosinophils % 11.7 % (0-4.4); Hematocrit 26.6 % (39.6-49.0); Hemoglobin 8.5 g/dL (13.6-17.9); Lymphocytes % 54.4 % (15.3-44.8); MCH 23.3 pg (27.0-35.0); MCHC 31.7 g/dL (32.0-36.0); MCV 73.4 fL (80-100); MPV 7.6 fL (7.6-11.3); Monocytes % 29.6 % (3.3-12.3); Nucleated Red Blood Cells % 0.2 % (0-0); Platelets 520 thou/uL (152-406); RBC Red Blood Cell Count 3.63 M/uL (4.33-5.43); Red Cell Distribution Width 21.6 % (12.1-15.2)
[2024-04-05 17:50] LABS: PT Prothrombin Time 14.2 SECONDS (9.5-12.5); PTT, Activated Partial Thromb 22.1 SECONDS (24.3-36.9); Protime INR 1.3
[2024-04-05 17:51] LABS: Albumin 2.1 g/dL (3.4-5.0); Albumin/Globulin Ratio 0.3 (1.1-1.8); Anion Gap 7.2 mEq/L (5.0-15.0); Bilirubin Total 0.2 mg/dL (0.2-1.0); Globulin 6.2 g/dL (2.3-3.5); Potassium 4.2 mEq/L (3.5-5.1); Protein, Total 8.3 g/dL (6.4-8.2)
[2024-04-05 18:20] LABS: Anisocytosis 1+; Blood Morphology Comment NOTED (NOT SEEN); Hypochromasia 2+; Platelet Estimate ADEQ; White Blood Cell Scan OK (OK)
[2024-04-05] MEDS ORDERED: HYDROCODONE/APAP 10/325 TAB ONE (18:29)
--- NOTE | 2024-04-05 18:31 | EDPHYS ---
Physician Documentation [facility] Name: Abel Maria Age: 33 yrs Sex: Male : 1990 Arrival Date: 04/05/2024 Time: 14:42 Bed 15 Private MD: ED Physician Yared Banks HPI: 04/05 15:42 This 33 yrs old Male presents to ER via Wheelchair with complaints of Wound Check. rn 15:42 Patient presents to ED for recheck of: Open wound to left leg. The affected area is on rn the left calf. The patient has experienced similar episodes in the past. Patient reports anterior by home health for wound evaluation. Patient states has not been changing wound dressing is supposed to and he personally cannot look at it. States admitted here twice recently and "leg was not even looked". Denies any fever or chills. No drainage from wound. 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 Missed appointment with Dr. Solorio recently and has another appointment with him tomorrow for graft evaluation.. Historical: - Allergies: 15:19 No Known Allergies; ap3 - PMHx: 15:19 Congenital neutropenia; Sleep Apnea; ap3 - PSHx: 15:19 eye; leg; rectum; ap3 - Immunization history:: Client reports receiving the 2nd dose of the Covid vaccine. - Infectious Disease History:: Denies. - Social history:: Smoking status: Patient denies any tobacco usage or history of. - Family history:: not pertinent. - Hospitalizations: : No recent hospitalization is reported. ROS: 15:42 Constitutional: Negative for fever, chills, and weight loss, Cardiovascular: Negative rn for chest pain, palpitations, and edema, Respiratory: Negative for shortness of breath, cough, wheezing, and pleuritic chest pain, Abdomen/GI: Negative for abdominal pain, nausea, vomiting, diarrhea, and constipation, MS/Extremity: Positive for pain and open wound to the left leg Exam: 15:42 Constitutional: This is a well developed, well nourished patient who is awake, alert, rn and in no acute distress. Cardiovascular: Regular rate and rhythm. No pulse deficits. Respiratory: No increased work of breathing, no retractions or nasal flaring. MS/ Extremity: Pulses equal, no cyanosis. Neurovascular intact. Left posterior leg/calf with large open wound, fibrinous tissue easily peeled off and removed with dressing, no purulence or fluctuance. 19:52 ECG was reviewed by the Attending Physician. rn Vital Signs: 15:17 Pulse 96; Resp 18; Temp 97.8(O); Pulse Ox 97% on R/A; Weight 113.4 kg; Height 5 ft. 2 ap3 in. ; Pain 8/10; 15:20 BP 99 / 59; ap3 16:25 BP 96 / 61; Pulse 80; Resp 17; Pulse Ox 98% on R/A; me1 17:00 BP 114 / 69; Pulse 76; Resp 18; Pulse Ox 99% on R/A; me1 17:45 BP 131 / 76; Pulse 78; Resp 20; Pulse Ox 99% on R/A; me1 17:58 Pain 8/10; me1 18:45 BP 111 / 59; Pulse 79; Resp 15; Pulse Ox 98% on R/A; me1 15:17 Body Mass Index 45.73 (113.40 kg, 157.48 cm) ap3 15:17 Pain Scale: Adult ap3 17:58 Pain Scale: Adult me1 MDM: 14:53 Patient medically screened. rn 17:43 ED course: Delay in labs due to difficulty obtaining IV access.. rn 18:29 Differential diagnosis: Chronic open wound of the left leg, poor wound healing, poor furniture cleaner with care. Data reviewed: vital signs, nurses notes, old medical records, lab test result(s), and as a result, I will discharge patient. Management of patient was discussed with the following: Head Bone Grinder: Discussed case with , states if labs unchanged can follow-up with him as has appointment tomorrow in his clinic. Wound much better appearing after cleaning and mild debridement in ER with prescription rash, base of tissue beefy red and healthy appearing. No purulence. Patient states had not change dressing in about a week or more. Needs to be changing dressings more frequently and follow-up with surgeon as scheduled.. Counseling: I had a detailed discussion with the patient and/or guardian regarding the historical points, exam findings, and any diagnostic results supporting the discharge/admit diagnosis, lab results, the need for outpatient follow up, to return to the emergency department if symptoms worsen or persist or if there are any questions or concerns that arise at home. Response to treatment: the patient's symptoms have markedly improved after treatment, and as a result, I will discharge patient. Special discussion: I discussed with the patient/guardian in detail that at this point there is no indication for admission to the hospital. It is understood, however, that if the symptoms persist or worsen the patient needs to return immediately for re-evaluation. Based on the history and exam findings, there is no indication for further emergent testing or inpatient evaluation. I discussed with the patient/guardian the need to see the general surgeon for further evaluation of the symptoms. 04/05 15:09 Order name: Blood Culture Adult (2) 04/05 15:09 Order name: CBC with Diff; Complete Time: 18:28 04/05 15:09 Order name: CMP; Complete Time: 18: 04/05 15:09 Order name: Lactate w/ 2H reflex if indic.; Complete Time: 18: 04/05 15:09 Order name: Protime (+inr); Complete Time: 18: 04/05 15:09 Order name: Ptt, Activated; Complete Time: 18: 04/05 15:09 Order name: Wound Culture 04/05 17:42 Order name: CBC Smear Scan; Complete Time: 18: EDDE 04/05 17:52 Order name: Glucose, Ancillary Testing; Complete Time: 18:11 [facility] 04/05 15:09 Order name: EKG; Complete Time: 15:09 04/05 15:09 Order name: Accucheck; Complete Time: 17:40 04/05 15:09 Order name: Cardiac monitoring; Complete Time: 17:40 04/05 15:09 Order name: EKG - Nurse/Tech; Complete Time: 17:40 04/05 15:09 Order name: Labs collected and sent; Complete Time: 16:32 04/05 15:09 Order name: O2 Per Protocol; Complete Time: 16:04/05 15:09 Order name: O2 Sat Monitoring; Complete Time: 16:04/05 15:09 Order name: Vital Signs; Complete Time: 16:04/05 15:38 Order name: Wound Care: scrub wound with brush per Dr. Solorio; Complete Time: 16:04/05 16:46 Order name: Labs - recollect needed: please recollect everything; Complete Time: 17:37 em1 EC:52 Rate is 73 beats/min. Rhythm is regular. QRS [place] is Normal. [place] interval is normal. QRS rn interval is normal. QT interval is normal. No Q waves. T waves are Normal. No ST changes noted. Clinical impression: NSR w/ Non-specific ST/T Changes. Reviewed by me. Administered Medications: 17:36 Drug: fentaNYL (PF) IVP 50 mcg IVP once Route: IVP; Site: right hand; me1 17:58 Follow up: Pain 8/10 Adult; Response: No adverse reaction; Pain is decreased me1 17:36 Drug: NS 0.9% IV 500 ml IV at bolus once Route: IV; Rate: bolus; Site: right hand; me1 19:01 Follow up: IV Status: Completed infusion me1 18:30 Drug: [place] PO 10 mg-325 mg 1 tabs PO once Route: PO; me1 18:59 Follow up: Response: No adverse reaction; Pain is decreased me1 Point of Care Testing: Blood Glucose: 17:39 Blood Glucose: 109 mg/dL; me1 Ranges: Critical Glucose Levels:Adult <50 mg/dl or >400 mg/dl <40 mg/dl or >180 mg/dl Disposition Summary: 04/05/24 18:30 Discharge Ordered Notes: Location: Home rn Problem: chronic rn Symptoms: have improved rn Condition: Stable rn Diagnosis - Unspecified open wound, left lower leg rn Followup: rn - With: Clyde Solorio MD - When: Tomorrow - Reason: Recheck today's complaints, Re-evaluation by your physician Discharge Instructions: - Discharge Summary Sheet rn - Wound Care, Adult rn Forms: - Medication Reconciliation Form rn - Antibiotic oil burner - Prescription Opioid Use rn - Patient Portal Instructions rn - Leadership Thank You Letter rn Signatures: Dispatcher [employer] Yared Toledo MD MD rn Martinez, Eric em1 Adriana Horne RN RN ap3 Georgia Santos RN RN me1 Corrections: (The following items were deleted from the chart) 15:09 15:09 BLOOD CULTURE*+BA.LAB.BRZ ordered. EDMS EDMS 15:09 15:09 CBC+H.LAB.BRZ ordered. EDMS EDMS 15: 15:09 COMPREHENSIVE METABOLIC PANEL+C.LAB.BRZ ordered. EDMS EDMS 15: 15:09 LACTATE+C.LAB.BRZ ordered. EDMS EDMS 15: 15:09 PROTIME (+INR)+COAG.LAB.BRZ ordered. EDMS EDMS 15: 15:09 PTT, ACTIVATED+COAG.LAB.BRZ ordered. EDMS EDMS 15:45 15:42 Patient reports anterior by home health for wound evaluation. Patient states has rn not been changing wound dressing is supposed to and he personally cannot look at it. States admitted here twice recently and "leg was not even looked". Denies any fever or chills. No drainage from wound. 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 Missed appointment with Dr. Ledesma recently and has another appointment with him tomorrow for graft evaluation.. rn
--- NOTE | 2024-04-05 18:31 | ER ---
Nurse's Notes [facility] Name: Abel Maria Age: 33 yrs Sex: Male : 1990 Arrival Date: 04/05/2024 Time: 14:42 Bed 15 Private MD: Diagnosis: Unspecified open wound, left lower leg Presentation: 04/05 15:17 Chief complaint: Patient states: he has been having issues with a wound on his left ap3 lower leg since summer. Coronavirus screen: At this time, the client does not indicate any symptoms associated with coronavirus-19. Ebola Screen: No symptoms or risks identified at this time. Risk Assessment: Do you want to hurt yourself or someone else? Patient reports no desire to harm self or others. Onset of symptoms is unknown. 15:17 Method Of Arrival: Wheelchair ap3 15:17 Acuity: RICH 2 ap3 15:21 Initial Sepsis Screen: Does the patient meet any 2 criteria? No. Patient's initial ap3 sepsis screen is negative. Does the patient have a suspected source of infection? No. Patient's initial sepsis screen is negative. Triage Assessment: 15:19 General: Appears in no apparent distress. Behavior is calm, cooperative, appropriate ap3 for age. Pain: Complains of pain in left calf Pain currently is 8 out of 10 on a pain scale. Pain began years ago. Neuro: Level of Consciousness is awake, alert, obeys commands, Oriented to person, place, time, situation. Cardiovascular: Patient's skin is warm and dry. Respiratory: Airway is patent Respiratory effort is even, unlabored, Respiratory pattern is regular, symmetrical. 15:20 Derm: Wound noted left calf. ap3 Historical: - Allergies: 15:19 No Known Allergies; ap3 - PMHx: 15:19 Congenital neutropenia; Sleep Apnea; ap3 - PSHx: 15:19 eye; leg; rectum; ap3 - Immunization history:: Client reports receiving the 2nd dose of the Covid vaccine. - Infectious Disease History:: Denies. - Social history:: Smoking status: Patient denies any tobacco usage or history of. - Family history:: not pertinent. - Hospitalizations: : No recent hospitalization is reported. Screenin:00 [facility] ED Fall Risk Assessment (Adult) History of falling in the last 3 months, me1 including since admission No falls in past 3 months (0 pts) Confusion or Disorientation No (0 pts) Intoxicated or Sedated No (0 pts) Impaired Gait No (0 pts) Mobility Assist Device Used No (0 pt) Altered Elimination No (0 pt) Score/Fall Risk Level 0 - 2 = Low Risk Maintained a safe environment, Provided non-skid footwear, Hourly rounding (assess needs \T\ fall precautionary measures) done. 15:20 Abuse screen: Denies threats or abuse. Nutritional screening: No deficits noted. ap3 Tuberculosis screening: No symptoms or risk factors identified. Assessment: 15:00 General: Appears uncomfortable, obese, well developed, well nourished, Behavior is me1 cooperative, appropriate for age, anxious, Reports concerned about his wound to left lateral lower leg (chronic since summer). Pain: Complains of pain in left leg and left calf Pain does not radiate. Pain currently is 8 out of 10 on a pain scale. Quality of pain is described as sharp, Pain began years ago. Is continuous. Neuro: Level of Consciousness is awake, alert, obeys commands, Oriented to person, place, time, situation, Appropriate for age. Cardiovascular: Patient's skin is warm and dry. Respiratory: Airway is patent Respiratory effort is even, unlabored, Respiratory pattern is regular, symmetrical. GI: No signs and/or symptoms were reported involving the gastrointestinal system. : No signs and/or symptoms were reported regarding the genitourinary system. EENT: No signs and/or symptoms were reported regarding the EENT system. Derm: Skin is healthy with good turgor, Skin is pink, warm \T\ dry. Musculoskeletal: Reports pain in left calf. 16:48 Reassessment: No changes from previously documented assessment. Patient and/or family ll1 updated on plan of care and expected duration. Pain level reassessed. Vital Signs: 15:17 Pulse 96; Resp 18; Temp 97.8(O); Pulse Ox 97% on R/A; Weight 113.4 kg; Height 5 ft. 2 ap3 in. ; Pain 8/10; 15:20 BP 99 / 59; ap3 16:25 BP 96 / 61; Pulse 80; Resp 17; Pulse Ox 98% on R/A; me1 17:00 BP 114 / 69; Pulse 76; Resp 18; Pulse Ox 99% on R/A; me1 17:45 BP 131 / 76; Pulse 78; Resp 20; Pulse Ox 99% on R/A; me1 17:58 Pain 8/10; me1 18:45 BP 111 / 59; Pulse 79; Resp 15; Pulse Ox 98% on R/A; me1 15:17 Body Mass Index 45.73 (113.40 kg, 157.48 cm) ap3 15:17 Pain Scale: Adult ap3 17:58 Pain Scale: Adult pa1 ED Course: 14:47 Patient arrived in ED. mg5 14:53 Yared Banks MD is Attending Physician. rn 15:00 Patient has correct armband on for positive identification. Bed in low position. Call pa1 light in reach. Side rails up X 1. Provided Education on: POC. Verbalized understanding.. Client placed on continuous cardiac and pulse oximetry monitoring. NIBP monitoring applied. Pulse ox on. NIBP on. 15:00 No provider procedures requiring assistance completed. me1 15:19 Triage completed. ap3 15:20 Arm band placed on left wrist. ap3 15:45 Georgia Santso, SONG is Primary Nurse. me1 16:20 Initial lab(s) drawn, by me, sent to lab. First set of blood cultures drawn by me. ll1 16:28 Missed attempt(s): 22 gauge in left forearm. Bleeding controlled, band aid applied, ll1 catheter tip intact. 16:32 CBC with Diff Sent. me1 16:32 CMP Sent. me1 16:32 Lactate w/ 2H reflex if indic. Sent. me1 16:32 Protime (+inr) Sent. me1 16:32 Ptt, Activated Sent. me1 16:32 Wound Culture Sent. me1 16:32 Wound culture swab sent to lab. me1 16:45 Second set of blood cultures drawn. ll1 16:48 Missed attempt(s): 22 gauge in left upper arm. Bleeding controlled, band aid applied, ll1 catheter tip intact. 17:30 Repeat lab(s) drawn. by me, sent to lab. Inserted saline lock: 24 gauge in right hand, iw using aseptic technique. Blood collected. 17:46 EKG done, by ED staff, reviewed by Yared Banks MD. me1 18:30 Clyde Solorio MD is Referral Physician. rn 19:00 IV discontinued, intact, bleeding controlled, No redness/swelling at site. Pressure pa1 dressing applied. Administered Medications: 17:36 Drug: fentaNYL (PF) IVP 50 mcg IVP once Route: IVP; Site: right hand; pa1 17:58 Follow up: Pain 8/10 Adult; Response: No adverse reaction; Pain is decreased me 17:36 Drug: NS 0.9% IV 500 ml IV at bolus once Route: IV; Rate: bolus; Site: right hand; me1 19:01 Follow up: IV Status: Completed infusion me1 18:30 Drug: [place] PO 10 mg-325 mg 1 tabs PO once Route: PO; me1 18:59 Follow up: Response: No adverse reaction; Pain is decreased me1 Medication: 15:00 VIS not applicable for this client. [facility] [place] of [place] Testing: Blood Glucose: 17:39 Blood Glucose: 109 mg/dL; [facility] [place] Ranges: Outcome: 18:30 Discharge ordered by MD. rn 19:00 Discharged to home ambulatory, [facility] [place] 19:00 Condition: stable 19:00 Discharge instructions given to patient, Instructed on discharge instructions, follow up and referral plans. Demonstrated understanding of instructions, follow-up care, 19:01 Patient left the ED. [facility] [place] Signatures: Stella Singh RN RN iw Yared Banks MD MD rn Prokisch, Amanda, RN RN ap3 Darion Monge RN RN ll1 Georgia Santos RN RN me1 Marla Carpenter mg5 Corrections: (The following items were deleted from the chart) 16:38 15:17 Chief complaint: Patient states: he has been having issues with a wound on his me1 left lower leg since summer. ap3
[2024-04-05 19:11] VITALS: TEMP 97.8
[2024-04-05 19:32] VITALS: BP 111/59; O2SAT 98
--- NOTE | 2024-04-08 17:02 | EKG ---
Test Date: 2024-04-05 Test Time: 17:43:52 Switchboard Manager: MEASUREMENT RESULTS: Intervals: Rate: 73 OK: 160 QRSD: 82 QT: 412 QTc: 453 [place]: P: -9 OK: 160 QRS: -10 T: 5 INTERPRETIVE STATEMENTS: Normal sinus rhythm with sinus arrhythmia Normal ECG Compared to ECG 04/01/2024 04:35:06 Sinus tachycardia no longer present ST (T wave) deviation no longer present Electronically Signed On 04-08-24 16:52:07 CDT by Reno Mendiola
== END 2024-04-05 19:01 | disposition home or self-care (01) ==
LOC: ER 14:42
DX: S81.802A Unspecified open wound, left lower leg, initial encounter (principal)
CPT/HCPCS: 36415; 80053; 82947; 83605; 85025; 85610; 85730; 87040; 87070; 87077; 87186; 87205; 93005; 96361; 96374; 99285; J3010; J7040

== ENCOUNTER 2024-04-06 20:04 | Inpatient (IN) | payer OTHER ==
[2024-04-06] MEDS ORDERED: LIDOCAINE 1% 20 ML MDV ONE (22:14)
[2024-04-06] MEDS ORDERED: NA CHLORIDE 0.9% 1,000 ML ONE (22:46)
[2024-04-06] MEDS ORDERED: NA CHLORIDE 0.9% 250 ML ONE (22:46)
[2024-04-06] MEDS ORDERED: VANCOMYCIN 1 GM/VIAL ONE (22:46)
[2024-04-06 23:01] LABS: Absolute Eosinophils 0.3 K/uL (0-0.5); Absolute Lymphocytes (CBC) 1.5 K/uL (0.7-4.9); Absolute Monocytes 0.9 K/uL (0.1-1.3); Absolute Neutrophil 0.1 K/uL (1.8-8.0); Basophils % 1.2 % (0-1.3); Eosinophils % 11.4 % (0-4.4); Hematocrit 23.8 % (39.6-49.0); Hemoglobin 7.5 g/dL (13.6-17.9); Lymphocytes % 52.2 % (15.3-44.8); MCH 22.8 pg (27.0-35.0); MCHC 31.3 g/dL (32.0-36.0); MCV 72.9 fL (80-100); MPV 7.9 fL (7.6-11.3); Neutrophils % 3.2 % (41.7-73.7); Platelets 596 thou/uL (152-406); RBC Red Blood Cell Count 3.26 M/uL (4.33-5.43); Red Cell Distribution Width 22.2 % (12.1-15.2)
--- NOTE | 2024-04-06 23:01 | EDPHYS ---
Physician Documentation [facility] Name: Abel Maria Age: 33 yrs Sex: Male : 1990 Arrival Date: 04/06/2024 Time: 20:04 Bed 19 Private MD: ED Physician Federico Boles HPI: 04/06 20:17 This 33 yrs old Other Male presents to ER via Unassigned with complaints of Wound sp4 Infection. 22:55 Patient is 33-year-old male with past medical history of congenital neutropenia, sp4 anemia, nonhealing wounds and chronic left lower extremity skin ulcer history of debridement of left lower extremity ulcer. Additional history of morbid obesity and physical disability. History of recent multiple hospitalizations at [facility]. History of management with levofloxacin and history of follow-up with general surgeon for chronic left lower ischemic ulcer. Recent admission on 04/02/2024 for syncope and weakness. Patient's medications include acetaminophen, furosemide, gabapentin, insulin lispro, methocarbamol. Patient was the general surgery office this morning for wound check and dressing change on the left lower extremity. General surgeon advised patient to go to the hospital and to be admitted through the emergency department for surgical debridement of left lower extremity ulcer. . Historical: - Allergies: 20:21 No Known Allergies; cm10 - PMHx: 20:21 Congenital neutropenia; Sleep Apnea; cm10 - PSHx: 20:21 eye; leg; rectum; cm10 - Immunization history:: Adult Immunizations up to date. - Infectious Disease History:: Denies. - Social history:: Smoking status: Patient denies any tobacco usage or history of. - Family history:: not pertinent. ROS: 22:55 Constitutional: Negative for fever, chills, and weight loss, positive for chronic sp4 persistent worsening left lower extremity ulcer. 22:55 All other systems are negative, Exam: 22:55 Constitutional: This is a well developed, well nourished patient who is awake, alert, sp4 and in no acute distress. Morbidly obese male who is pale appearing. Head/Face: Normocephalic, atraumatic. Eyes: Pupils equal round and reactive to light, extra-ocular motions intact. Lids and lashes normal. Conjunctiva and sclera are not injected. Cornea within normal limits. Periorbital areas with no swelling, redness, or edema. ENT: Nares patent. No nasal discharge, no septal abnormalities noted. Tympanic membranes are normal and external auditory canals are clear. Oropharynx with no redness, swelling, or masses, exudates, or evidence of obstruction, uvula midline. Mucous membranes moist. Neck: Trachea midline, no thyromegaly or masses palpated, and no cervical lymphadenopathy. Supple, full range of motion without nuchal rigidity, or vertebral point tenderness. Chest/axilla: Normal chest wall appearance and motion. Nontender with no deformity. No lesions are appreciated. Cardiovascular: Regular rate and rhythm with a normal S1 and S2. No gallops, murmurs, or rubs. Normal PMI, no JVD. No pulse deficits. Respiratory: Lungs have equal breath sounds bilaterally, clear to auscultation and percussion. No rales, rhonchi or wheezes noted. No increased work of breathing, no retractions or nasal flaring. Abdomen/GI: Soft, with normal bowel sounds. No distension or tympany. No guarding or rebound. No evidence of tenderness throughout. Back: No spinal tenderness. No costovertebral tenderness. Skin: Warm, dry with normal turgor. Normal color with no rashes, no lesions, and no evidence of cellulitis. MS/ Extremity: Pulses equal, no cyanosis. Neurovascular intact. Full, normal range of motion. Positive for chronic appearing extensive left lower extremity medial surface ulceration. Neuro: Awake and alert, GCS 15, oriented to person, place, time, and situation. Cranial nerves II-XII grossly intact. Motor strength 5/5 in all extremities. Sensory grossly intact. Psych: Awake, alert, with orientation to person, place and time. Behavior, mood, and affect are within normal limits Vital Signs: 20:20 BP 122 / 72; Pulse 89; Resp 18; Temp 98.3; Pulse Ox 100% ; Weight 111.13 kg; Height 5 cm10 ft. 2 in. ; Pain 8/10; 20:20 Body Mass Index 44.81 (111.13 kg, 157.48 cm) cm10 20:20 Pain Scale: Adult cm10 [place] Coma Score: 22:55 Eye Response: spontaneous(4). Motor Response: obeys commands(6). Verbal Response: sp4 oriented(5). Total: 15. Procedures: 22:47 Central Line: the site was prepped with in sterile fashion, Hibiclens , a triple lumen sp4 catheter was inserted, in the right internal jugular vein, in 1 attempts. placement was verified, by CXR, by blood return, Ultrasound-guided central line, the site was dressed with 4X4s, Tegaderm, using sterile technique, the patient tolerated the procedure, well, Central line started secondary to the exhausted peripheral IV access. MDM: 20:28 Patient medically screened. sp4 23:01 Differential diagnosis: Ingestion/exposure to Infection polypharmacy, over medication. sp4 Data reviewed: vital signs, nurses notes, lab test result(s), radiologic studies, plain films. Consideration of Admission/Observation Patient was admitted/placed on observation. Escalation of care including admission/observation considered. Management of patient was discussed with the following: Hospitalist: Roberto OBRIEN . Match Marker: Lyndsey OBRIEN . ED course: At this time patient is stable for admission, general surgeon requested vancomycin IV 1 g also requested n.p.o. after midnight. Patient hemodynamically stable. Central line placed secondary to exhausted peripheral IV access. . 04/07 01:58 ED course: EXAM: XR Chest, 1 View CLINICAL HISTORY: The patient is 33 years old and is sp4 Male; CVL placement Right IJ TECHNIQUE: Frontal view of the chest. COMPARISON: XR Chest dated Apr 01 2024 FINDINGS: LUNGS: Unremarkable. No consolidation. PLEURAL SPACE: Unremarkable. No pneumothorax. HEART: Unremarkable. No cardiomegaly. MEDIASTINUM: Unremarkable. Normal mediastinal contour. BONES/JOINTS: Unremarkable. No acute fracture. TUBES, LINES AND DEVICES: Right IJ central venous catheter is present with the tip in the region of the SVC. UPPER ABDOMEN: Elevation of the right hemidiaphragm is noted. IMPRESSION: Right IJ central venous catheter is present with the tip in the region of the SVC. . 04/06 20:32 Order name: CBC with Diff; Complete Time: 01:56 sp4 04/06 20:32 Order name: CMP; Complete Time: 00:10 sp4 04/06 20:32 Order name: PT-INR; Complete Time: 00:10 sp4 04/06 20:32 Order name: Type And Screen; Complete Time: 01:56 sp4 04/06 23:05 Order name: Manual Differential; Complete Time: 01:56 EDMS 04/06 23:33 Order name: Urinalysis w/ reflexes EDMS 04/06 23:33 Order name: CBC with Automated Diff EDMS 04/06 23:33 Order name: CBC with Automated Diff EDMS 04/06 23:33 Order name: Comprehensive Metabolic Panel EDMS 04/06 23:33 Order name: Comprehensive Metabolic Panel EDMS 04/06 22:49 Order name: Chest Single View XRAY sp4 04/06 20:32 Order name: IV Saline Lock; Complete Time: 22:48 sp4 04/06 20:32 Order name: Labs collected and sent; Complete Time: 22:48 sp4 04/06 20:34 Order name: NPO; Complete Time: 22:42 sp4 04/06 21:58 Order name: Central Line Kit; Complete Time: 22:42 sp4 04/06 23:04 Order name: Misc. Order: recollect blue top/ hemolyzed; Complete Time: 23:25 vk Administered Medications: 04/06 22:48 Drug: Lidocaine Infiltration (1 %) 20 ml 20 ml Infiltration once; to bedside {Note: jb4 administered by ER provider..} Volume: 20 ml; Route: Infiltration; 23:05 Drug: NS 0.9% IV 1000 ml IV at 125 ml/hr continuous Route: IV; Rate: 125 ml/hr; Site: jb4 right jugular; 23:05 Drug: vancoMYCIN IVPB 1 grams IVPB once over 2 hrs Route: IVPB; Infused Over: 2 hrs; jb4 Site: right jugular; 23:23 Drug: Ondansetron IVP 4 mg IVP once; over 2 minutes Route: IVP; Site: right antecubital;jb4 23:25 Drug: morphine IVP or IV 4 mg IVP once over 4 mins Route: IVP; Infused Over: 4 mins; jb4 Site: right jugular; Disposition Summary: 04/06/24 23:01 Hospitalization Ordered Notes: Hospitalization Status: Inpatient Admission sp4 Provider: Nirav Mejia sp4 Location: Telemetry/MedSur (Inpatient) sp4 Condition: Stable sp4 Problem: new sp4 Symptoms: have improved sp4 Bed/Room Type: Standard sp4 Room Assignment: 214(04/06/24 23:35) Diagnosis - Infected left lower extremity ulcer, morbid obesity, chronic neutropenia, sp4 intractable left lower extremity pain secondary to chronic ulcer Forms: - Medication Reconciliation Form sp4 - SBAR form sp4 - Leadership Thank You Letter sp4 Signatures: Dispatcher [employer] Yin Bakns, RN RN kl Bruce Red RN RN jb4 Federico Boles MD MD sp4 Greer Frederick RN RN cm10 Salome Aguilar Corrections: (The following items were deleted from the chart) 20:33 20:33 CBC+H.LAB.BRZ ordered. EDMS EDMS 20:33 20:33 COMPREHENSIVE METABOLIC PANEL+C.LAB.BRZ ordered. EDMS EDMS 20:33 20:33 PROTIME (+INR)+COAG.LAB.BRZ ordered. EDMS EDMS 20:33 20:33 TYPE AND SCREEN+BB.LAB.BRZ ordered. EDMS EDMS 20:46 20:34 BLOOD CULTURE*+BA.LAB.BRZ ordered. EDMS EDMS 23:35 23:01 spLeonidas kingston
--- NOTE | 2024-04-06 23:01 | ER ---
Nurse's Notes [facility] Name: Abel Maria Age: 33 yrs Sex: Male : 1990 Arrival Date: 04/06/2024 Time: 20:04 Bed 19 Private MD: Diagnosis: Infected left lower extremity ulcer, morbid obesity, chronic neutropenia, intractable left lower extremity pain secondary to chronic ulcer Presentation: 04/06 20:20 Chief complaint: Patient states: Sent by Dr. Solorio to be admitted for debridement of cm10 wound to left leg. Coronavirus screen: Client denies travel out of the [place] in the last 14 days. At this time, the client does not indicate any symptoms associated with coronavirus-19. Ebola Screen: Patient denies travel to an Ebola-affected area in the 21 days before illness onset. No symptoms or risks identified at this time. Initial Sepsis Screen: Does the patient meet any 2 criteria? No. Patient's initial sepsis screen is negative. Does the patient have a suspected source of infection? No. Patient's initial sepsis screen is negative. Risk Assessment: Do you want to hurt yourself or someone else? Patient reports no desire to harm self or others. Onset of symptoms was April 06, 2024. 20:20 Method Of Arrival: Wheelchair cm10 20:20 Acuity: RICH 3 cm10 Triage Assessment: 20:21 General: Appears in no apparent distress. comfortable, Behavior is calm, cooperative. cm10 Pain: Complains of pain in left leg. Neuro: No deficits noted. Level of Consciousness is awake, alert, obeys commands, Oriented to person, place, time, situation. Historical: - Allergies: 20:21 No Known Allergies; cm10 - PMHx: 20:21 Congenital neutropenia; Sleep Apnea; cm10 - PSHx: 20:21 eye; leg; rectum; cm10 - Immunization history:: Adult Immunizations up to date. - Infectious Disease History:: Denies. - Social history:: Smoking status: Patient denies any tobacco usage or history of. - Family history:: not pertinent. Screenin/30 02:00 [facility] ED Fall Risk Assessment (Adult) History of falling in the last 3 months, jb4 including since admission No falls in past 3 months (0 pts) Confusion or Disorientation No (0 pts) Intoxicated or Sedated No (0 pts) Impaired Gait No (0 pts) Mobility Assist Device Used No (0 pt) Altered Elimination No (0 pt) Score/Fall Risk Level 0 - 2 = Low Risk Oriented to surroundings, Maintained a safe environment. Abuse screen: Denies threats or abuse. Nutritional screening: No deficits noted. Tuberculosis screening: No symptoms or risk factors identified. Vital Signs: 04/06 20:20 BP 122 / 72; Pulse 89; Resp 18; Temp 98.3; Pulse Ox 100% ; Weight 111.13 kg; Height 5 cm10 ft. 2 in. ; Pain 8/10; 20:20 Body Mass Index 44.81 (111.13 kg, 157.48 cm) cm10 20:20 Pain Scale: Adult cm10 [place] Coma Score: 22:55 Eye Response: spontaneous(4). Motor Response: obeys commands(6). Verbal Response: sp4 oriented(5). Total: 15. ED Course: 20:06 Patient arrived in ED. im 20:17 Federico Boles MD is Attending Physician. sp4 20:21 Triage completed. cm10 20:21 Arm band placed on Patient placed in waiting room. cm10 21:55 Missed attempt(s): 22 gauge Bleeding controlled, band aid applied, catheter tip intact. rc3 22:47 Assisted provider with central line placement. Set up central line tray. Triple lumen vc1 line placed in right internal jugular. Line placed by Federico Boles MD Placement verified by blood return, Dressed with Tegaderm, Blood was collected. Patient tolerated well. Before procedure, did Practitioner(s) obtain informed consent? Yes. Patient \T\ family education about procedure, CLABSI prevention and S/S of infection? Yes. Time-out/Briefing performed prior to start of procedure? Yes. Was handwashing/sanitizing done immediately prior to procedure? Yes. Was patient positioned to in a way to prevent air embolism? Yes. Was procedure site sterilized? Yes, with chlorhexidine. Was the site allowed to dry? Yes. Was local anesthetic and/or sedation utilized? Yes. During the procedure, did the Practitioner(s) maintain a sterile field? Yes. Were unused ports clamped during insertion? Yes. Was blood aspirated from each lumen? Yes. After the procedure, did the Practitioner(s) clean the site and apply a sterile dressing? Yes. 23:00 Nirav Mejia MD is Hospitalizing Provider. sp4 23:04 Chest Single View XRAY In Process Unspecified. EDMS 04/07 02:00 Patient has correct armband on for positive identification. Bed in low position. Call jb4 light in reach. Side rails up X 1. Provided Education on: need for admit. 02:00 Patient admitted, IV remains in place. jb4 Administered Medications: 04/06 22:48 Drug: Lidocaine Infiltration (1 %) 20 ml 20 ml Infiltration once; to bedside {Note: jb4 administered by ER provider..} Volume: 20 ml; Route: Infiltration; 23:05 Drug: NS 0.9% IV 1000 ml IV at 125 ml/hr continuous Route: IV; Rate: 125 ml/hr; Site: jb4 right jugular; 23:05 Drug: vancoMYCIN IVPB 1 grams IVPB once over 2 hrs Route: IVPB; Infused Over: 2 hrs; jb4 Site: right jugular; 23:23 Drug: Ondansetron IVP 4 mg IVP once; over 2 minutes Route: IVP; Site: right antecubital;jb4 23:25 Drug: morphine IVP or IV 4 mg IVP once over 4 mins Route: IVP; Infused Over: 4 mins; jb4 Site: right jugular; Outcome: 23:01 Decision to Hospitalize by Provider. sp4 04/07 02:00 Admitted to Med/surg accompanied by nurse, via stretcher, room 214, with chart, jb4 Condition: stable Discharge instructions given to patient, Instructed on the need for admit, Demonstrated understanding of instructions, 02:01 Patient left the ED. jb4 Signatures: Dispatcher [employer] EDKY Bruce Red RN RN jb4 Arlette Bauer RN RN vc1 Federico Boles MD MD sp4 Norah Ferrer Clarissa, RN RN cm10 Katharine Pate3
[2024-04-06] MEDS ORDERED: MORPHINE 4 MG/ML SYR ONE (23:09)
[2024-04-06] MEDS ORDERED: ONDANSETRON 4 MG/2 ML VIAL ONE (23:09)
[2024-04-06 23:18] LABS: AST/SGOT 11 U/L (15-37); Albumin 2.1 g/dL (3.4-5.0); Albumin/Globulin Ratio 0.4 (1.1-1.8); Alkaline Phosphatase 36 U/L (45-117); Anion Gap 5.2 mEq/L (5.0-15.0); BUN Blood Urea Nitrogen 11 mg/dL (7-18); Bicarbonate 28 mEq/L (21-32); Bilirubin Total 0.2 mg/dL (0.2-1.0); Globulin 5.7 g/dL (2.3-3.5); Glomerular Filtration Rate 118 ml/min (=/>90); Glucose Level 116 mg/dL (74-106); Potassium 4.2 mEq/L (3.5-5.1); Protein, Total 7.8 g/dL (6.4-8.2); Sodium Level 136 mEq/L (136-145)
--- NOTE | 2024-04-06 23:21 | P.HP ---
Certification for Inpatient Patient admitted to: Inpatient With expected LOS: >2 Midnights Practitioner: I am a practitioner with admitting privileges, knowledge of patient current condition, hospital course, and medical plan of care. Services: Services provided to patient in accordance with Admission requirements found in Title 42 Section 412.3 of the Code of Federal Regulations Patient History Date of Service: 04/07/24 Reason for admission: Pain and swelling in the leg History of Present Illness: 33-year-old male with past medical history of congenital neutropenia, anemia, nonhealing wounds and chronic left lower extremity skin ulcer history of debridement of left lower extremity ulcer. He also has history of morbid obesity and physical disability. Patient has been followed by Dr. Solorio for nonhealing wound left lower extremity and was sent over to the ER for surgical debridement of lower extremity lesion. Denies any fever or chills. No nausea vomiting or diarrhea. Pain is still present. Patient states that history is a chronic wound which has been going on for the last 2 months. Started as very small lesion and had multiple debridement and was on IV antibiotic. Patient was assessed in the ER and was admitted for further management and surgical consult Allergies No Known Allergies Allergy (Unverified 10/26/23 16:35) Home medications list reviewed: Yes Home Medications: Acetaminophen [Tylenol*] 650 mg PO Q4HP PRN tab 03/29/24 Furosemide [Lasix*] 40 mg PO DAILY #10 tab 03/29/24 Gabapentin [Neurontin*] 400 mg PO TID cap 03/29/24 Insulin Lispro [Humalog*] See Protocol SQ AC ml 03/29/24 methocarbamoL [Robaxin*] 500 mg PO TID PRN tab 03/29/24 - Past Medical/Surgical History Diabetic: No Past Medical History: Reviewed- Non-Contributory -: Neutropenia -: Anemia -: Non healing wounds on the abdominal wall and the LLE Past Surgical History: Reviewed- Non-Contributory -: Debriedement of the wounds on the left leg -: 03/29/24 LEXISCAN INJECTED. CARDIOLITE INJECTED no ischemia Psychosocial/ Personal History: Pt lives in a trailer next door to his Brother. He has been in numerous hospitals over the course of the past two months - Family History Family History: Reviewed- Non-Contributory - Social History Smoking Status: Never smoker Alcohol use: No CD- Drugs: No Caffeine use: Yes Review of Systems 10-point ROS is otherwise unremarkable Physical Examination - Vital Signs Temperature: 98.4 F Blood Pressure: 132/70 Pulse: 78 Respirations: 18 Pulse Ox (%): 94 - Physical Exam General: Alert, Cooperative, Mild distress, Obese HEENT: Atraumatic, Normocephalic Neck: Supple, 2+ carotid pulse no bruit Respiratory: Clear to auscultation bilaterally, Normal air movement Cardiovascular: Regular rate/rhythm, Normal S1 S2 Capillary refill: <2 Seconds Gastrointestinal: Soft and benign, W/out hepatosplenomegaly Musculoskeletal: Erythema, Tenderness, Warmth Integumentary: Skin breakdown, Skin lesion, Tenderness/swelling, Erythema Neurological: Normal speech, Cranial nerves 3-12 intact, Normal reflexes 2+ Lymphatics: No axilla or inguinal lymphadenopathy - Studies Laboratory Data (last 24 hrs) 04/06/24 22:41 WBC 2.90 L Hgb 7.5 L Hct 23.8 L Plt Count 596 H Assessment and Plan - Problems (Diagnosis) (1) Cellulitis of left lower extremity Current Visit: No Status: Acute Plan: Cellulitis of left lower extremity s/p multiple past debridements of left leg Chronic / congenital Neutropenia Obstructive Sleep Apnea hx of tobacco use Pain control Consult Dr. Solorio Started on IV antibiotic with vancomycin and cefepime Previous cultures were positive for Enterococcus and MRSA Will repeat the cultures N.p.o. for now for possible debridement in the morning Chronic /congenital Neutropenia Was on filgrastim Obstructive Sleep Apnea CPAP at night Discharge Plan: Home Plan to discharge in: Greater than 2 days - Advance Directives Does patient have a Living Will: No Does patient have a Durable POA for Healthcare: No - Code Status/Comfort Care Code Status: Full Code Time Spent Managing Pts Care (In Minutes): 48
[2024-04-06 23:22] LABS: ALT/SGPT < 14 U/L (16-61)
[2024-04-06] MEDS ORDERED: ACETAMINOPHEN 325 MG TABLET PO PRN (23:25)
[2024-04-06] MEDS ORDERED: MORPHINE 2 MG/ML SYR IV PRN (23:30)
[2024-04-06] MEDS: NA CHLORIDE 0.9% 1,000 ML IV SCH (23:45)
[2024-04-07 00:01] LABS: PT Prothrombin Time 14.6 SECONDS (9.5-12.5); Protime INR 1.34
[2024-04-07 01:08] LABS: Band Neutrophils 1 % (0-1); Differential Total Cells Count 100; Eosinophils 12 % (0-3); Lymphocytes 67 % (15-42); Monocytes 15 % (0-10); Reactive Lymphocytes 2 %; Segmented Neutrophils 3 % (40-80)
[2024-04-07 01:09] LABS: Anisocytosis 2+; Blood Morphology Comment NOTED (NOT SEEN); Platelet Estimate INCR
[2024-04-07] MEDS: HYDROMORPHONE HCL 1 MG/ML INJ IV PRN (02:51)
[2024-04-07] MEDS: VANCOMYCIN 1 GM/VIAL ONE (03:21)
[2024-04-07] MEDS: NA CHLORIDE 0.9% 250 ML ONE (03:22)
[2024-04-07] MEDS: VANCOMYCIN 1 GM in NA CHLORIDE 0.9% 250 ML IVPB ONE (03:27)
[2024-04-07 03:44] LABS: Specific Gravity 1.008 (1.005-1.030); Sqamous Epithelial None Seen /HPF (None Seen); Urine Bacteria <20 /HPF (<20); Urine Bilirubin NEGATIVE (Negative); Urine Blood Trace (Negative); Urine Clarity Clear (Clear); Urine Color Colorless (Yellow); Urine Culture Reflex Order NOT NEEDED; Urine Glucose NEGATIVE (Negative); Urine Ketones NEGATIVE (Negative); Urine Microscopic Reflex YN ORDER UMIC; Urine Mucus Slight /HPF (None Seen); Urine Nitrite NEGATIVE (Negative); Urine Protein NEGATIVE (Negative); Urine RBC <5 /HPF (None Seen); Urine Urobilinogen Normal (Normal); Urine WBC <5 /HPF (<5); Urine pH 5.5 (5.0-7.0)
[2024-04-07 03:59] VITALS: BMI 44.8
[2024-04-07 05:58] LABS: Absolute Eosinophils 0.3 K/uL (0-0.5); Absolute Lymphocytes (CBC) 1.4 K/uL (0.7-4.9); Absolute Monocytes 0.8 K/uL (0.1-1.3); Absolute Neutrophil 0.1 K/uL (1.8-8.0); Basophils % 1.4 % (0-1.3); Eosinophils % 12.6 % (0-4.4); Hematocrit 23.2 % (39.6-49.0); Hemoglobin 7.4 g/dL (13.6-17.9); Lymphocytes % 52.2 % (15.3-44.8); MCH 23.3 pg (27.0-35.0); MCHC 31.9 g/dL (32.0-36.0); MPV 7.5 fL (7.6-11.3); Monocytes % 31.4 % (3.3-12.3); Neutrophils % 2.4 % (41.7-73.7); Nucleated Red Blood Cells % 0.9 % (0-0); Platelets 594 thou/uL (152-406); RBC Red Blood Cell Count 3.18 M/uL (4.33-5.43); Red Cell Distribution Width 21.9 % (12.1-15.2)
[2024-04-07 06:18] LABS: AST/SGOT 12 U/L (15-37); Albumin/Globulin Ratio 0.3 (1.1-1.8); Alkaline Phosphatase 36 U/L (45-117); BUN Blood Urea Nitrogen 10 mg/dL (7-18); Bicarbonate 29 mEq/L (21-32); Bilirubin Total 0.3 mg/dL (0.2-1.0); Globulin 5.8 g/dL (2.3-3.5); Glomerular Filtration Rate 118 ml/min (=/>90); Glucose Level 96 mg/dL (74-106); Protein, Total 7.8 g/dL (6.4-8.2); Sodium Level 137 mEq/L (136-145)
[2024-04-07 06:20] LABS: ALT/SGPT < 14 U/L (16-61)
[2024-04-07] MEDS: ENOXAPARIN 40 MG/0.4 ML SQ SCH (09:00)
[2024-04-07] MEDS ORDERED: CEFEPIME 1 GM in NA CHLORIDE 0.9% 100 ML IV SCH (09:00)
[2024-04-07] MEDS: CEFEPIME 2 GM in NA CHLORIDE 0.9% 100 ML IV SCH (09:07)
[2024-04-07] MEDS: HYDROCODONE/APAP 10/325 TAB PO PRN (09:33)
--- NOTE | 2024-04-07 11:29 | RAD REPORT ---
EXAM DESCRIPTION: RAD - Chest Single View - 04/06/2024 11:03 pm CLINICAL HISTORY: The patient is 33 years old and is Male; CVL placement Right IJ TECHNIQUE: Frontal view of the chest. COMPARISON: XR Chest dated Apr 01 2024 FINDINGS: LUNGS: Unremarkable. No consolidation. PLEURAL SPACE: Unremarkable. No pneumothorax. HEART: Unremarkable. No cardiomegaly. MEDIASTINUM: Unremarkable. Normal mediastinal contour. BONES/JOINTS: Unremarkable. No acute fracture. TUBES, LINES AND DEVICES: Right IJ central venous catheter is present with the tip in the region of the SVC. UPPER ABDOMEN: Elevation of the right hemidiaphragm is noted. IMPRESSION: Right IJ central venous catheter is present with the tip in the region of the SVC. Electronically signed by: Monica Solomon MD 04/06/2024 11:55 PM CDT RP Due to temporary technical issues with the PACS/Fluency reporting system, reports are being signed by the in house radiologist without review as a courtesy to ensure prompt reporting. The interpreting r adiologist is fully responsible for the content of the report.
[2024-04-07] MEDS ORDERED: VANCOMYCIN 2 GM in NA CHLORIDE 0.9% 500 ML IVPB SCH (12:00)
[2024-04-07] MEDS: BUPIVACAINE 0.25% PF 30 ML VIAL ONE (12:06)
[2024-04-07] MEDS ORDERED: LIDOCAINE 1% MPF 5 ML VIAL ONE (12:20)
[2024-04-07] MEDS ORDERED: MIDAZOLAM HCL 2 MG/2 ML INJ ONE (12:20)
[2024-04-07] MEDS ORDERED: ONDANSETRON 4 MG/2 ML VIAL ONE (12:20)
[2024-04-07] MEDS ORDERED: FENTANYL CITR 100 MCG/2 ML ONE (12:20)
[2024-04-07] MEDS ORDERED: propofoL 200 MG/20 ML VIAL IV ONE (12:20)
--- NOTE | 2024-04-07 13:52 | P.OP ---
Preoperative diagnosis: Chronic Non-Healing Wound of LEFT Posterior Leg Postoperative diagnosis: Chronic Non-Healing Wound of LEFT Posterior Leg Primary procedure: Debridement of Chronic Non-Healing Wound of LEFT Posterior Leg Anesthesia: GETA Estimated blood loss: <30cc Specimen: Debridement Tissue Findings: Slough and hypertrophic granulation tissue, superficial necrosis Complications: None Transferred to: Recovery Room Condition: Good
[2024-04-07] MEDS: MEPERIDINE HCL 25 MG/ML SYR ONE (14:05)
[2024-04-07] MEDS: HYDROMORPHONE HCL 1 MG/ML INJ ONE (14:08)
[2024-04-07] MEDS: PROMETHAZINE INJ 25 MG/ML AMP ONE (14:13)
[2024-04-07] MEDS: VANCOMYCIN 2 GM in NA CHLORIDE 0.9% 500 ML IVPB SCH (17:37)
--- NOTE | 2024-04-08 00:31 | OP ---
Date of Procedure: 04/07/2024 Surgeon: Clyde Solorio MD, Preoperative Diagnosis: Chronic nonhealing wound of the left lower posterior leg. Postoperative Diagnosis: Chronic nonhealing wound of the left lower posterior leg. Procedure Performed: Debridement of chronic nonhealing wound of the left posterior leg. Anesthesia: General endotracheal. Estimated Blood Loss: Less than 30 cc. Specimen: Debridement tissue. Findings: There was slough, superficial hypertrophic granulation tissue, and superficial necrosis to a large area, approximately 15 cm x 12 cm area of the posterior calf with superficial necrosis and s kareen of this area. It was down beyond the subcutaneous tissues and abutting the fascial plane. Complications: None. Disposition: The patient was transferred to recovery room in good condition. Procedure In Detail: After informed consent was obtained, the patient was brought to the operating r oom, prepped in usual sterile fashion after adequate anesthesia was achieved. I performed a simple d igital examination of the area and superficial slough came off very easily of this hypertrophic granu lation tissue, which had very poor connective tissue properties. It simply sloughed off with the mos t minimal manipulation. After this came off in a significant large segment, there was some superfici al necrosis at this area. I then used a curette to clean up all nonviable tissue until good clean bl eeding tissue was left. I then used electrocautery to achieve hemostasis in this area. I pulse lava ged the entire area as well, and then I applied Vashe-soaked gauze on top and a Kerlix roll was appli ed with Mann bandage. The patient tolerated the procedure well without evidence of complication and t ransferred to PACU in good condition. All counts were correct at the end of the case. TK/MODL Voice ID: [id number] Report ID: [id number]
[2024-04-08] MEDS: Oxycodone HCl/Acetaminophen 5/325 MG TAB PO PRN (10:02)
[2024-04-08] MEDS: methocarbamoL 750 MG TAB PO PRN (10:02)
[2024-04-08] MEDS: FENTANYL 25 MCG/PATCH TD SCH (10:33)
[2024-04-09] MEDS: DIPHENHYDRAMINE 25 MG TAB/CAP PO ONE (02:10)
[2024-04-09] MEDS: KETOROLAC 30 MG/ML INJ IV ONE (02:10)
[2024-04-09] MEDS: levoFLOXacin 750 MG TAB PO SCH (10:29)
[2024-04-09] MEDS: GABAPENTIN 100 MG CAP PO SCH (10:29)
[2024-04-09] MEDS: TBO-FILGRASTIM 480 MCG/0.8 ML SYR SQ SCH (10:31)
[2024-04-09] MEDS: KETOROLAC 30 MG/ML INJ IM ONE (10:32)
[2024-04-09] MEDS: DOXYCYCLINE 100 MG CAP PO SCH (20:46)
[2024-04-09] MEDS: ONDANSETRON 4 MG/2 ML VIAL IV PRN (21:56)
[2024-04-09] MEDS: MORPHINE 2 MG/ML SYR IV ONE (22:35)
[2024-04-09] MEDS: METOCLOPRAMIDE 10 MG/2mL INJ IV SCH (22:55)
[2024-04-09] MEDS: MORPHINE 4 MG/ML SYR IV ONE (22:55)
[2024-04-10] MEDS: MECLIZINE HCL 12.5 MG TAB PO SCH (06:14)
--- NOTE | 2024-04-10 09:01 | P.PN ---
Subjective Date of Service: 04/07/24 Chief Complaint: Pain and swelling in the leg S/p surgery still complaining of significant amount of pain in his left leg Review of Systems General: Weakness Respiratory: Shortness of Breath Musculoskeletal: Leg Pain Physical Examination - Vital Signs Temperature: 100.8 F Blood Pressure: 153/80 Pulse: 116 Respirations: 16 Pulse Ox (%): 91 - Physical Exam General: Alert, Moderate distress Respiratory: Clear to auscultation bilaterally Cardiovascular: No edema, Regular rate/rhythm Assessment And Plan - Current Problems (Diagnosis) (1) Cellulitis of left lower extremity Current Visit: No Status: Acute Plan: Patient is 33 years of age admitted with a cellulitis of his left lower extremity s/p debridement he still continues to complain of significant pain plan for pain control labs reviewed
--- NOTE | 2024-04-10 09:22 | P.PN ---
Subjective Date of Service: 04/08/24 Chief Complaint: Pain and swelling in the leg Patient continues to complain of significant amount of pain Review of Systems 10-point ROS is otherwise unremarkable Physical Examination - Vital Signs Temperature: 100.8 F Blood Pressure: 153/80 Pulse: 116 Respirations: 22 Pulse Ox (%): 98 - Physical Exam General: Alert, Moderate distress Respiratory: Clear to auscultation bilaterally Cardiovascular: No edema, Regular rate/rhythm, Normal S1 S2 Assessment And Plan - Current Problems (Diagnosis) (1) Cellulitis of left lower extremity Current Visit: No Status: Acute Plan: Patient has cellulitis of the left lower extremity continue with pain relief also added a fentanyl patch
--- NOTE | 2024-04-10 09:24 | P.PN ---
Subjective Date of Service: 04/09/24 Chief Complaint: Pain and swelling in the leg Patient still continues to complain of significant amount amount of pain and requesting IV narcotics Review of Systems Unremarkable Respiratory: Shortness of Breath Physical Examination - Vital Signs Temperature: 100.8 F Blood Pressure: 153/80 Pulse: 116 Respirations: 22 Pulse Ox (%): 98 - Physical Exam General: Alert, Oriented x3, Moderate distress Respiratory: Clear to auscultation bilaterally Cardiovascular: No edema, Regular rate/rhythm, Normal S1 S2 Assessment And Plan - Current Problems (Diagnosis) (1) Cellulitis of left lower extremity Current Visit: No Status: Acute Plan: Discussed with general surgery plan to change to p.o. antibiotic does not have active evidence of infection we will also start back him on Neupogen to his neutropenia sickle therapy ambulate discharge planning he is not a candidate for an LTAC
[2024-04-10] MEDS ORDERED: TRAMADOL HCL 50 MG TAB PO PRN (09:27)
--- NOTE | 2024-04-10 09:28 | P.PN ---
Subjective Date of Service: 04/10/24 Chief Complaint: Cellulitis No change in patient's condition he still complains of significant amount of pain he complains of feeling nauseated today Review of Systems Unremarkable Physical Examination - Vital Signs Temperature: 100.8 F Blood Pressure: 153/80 Pulse: 116 Respirations: 22 Pulse Ox (%): 98 - Physical Exam General: Alert, Oriented x3, Moderate distress Respiratory: Clear to auscultation bilaterally Cardiovascular: No edema, Regular rate/rhythm Assessment And Plan - Current Problems (Diagnosis) (1) Cellulitis of left lower extremity Current Visit: No Status: Acute Plan: Plan to start patient on physical therapy ambulate discharge planning will incr ease the dose of gabapentin to 300 mg 3 times a day labs have been ordered also add pantoprazole possibility of reflux and dyspepsia resume his trazodone patient's blood pressure is mildly elevated he was normotensive on admission may be secondary due to his pain
[2024-04-10] MEDS: GABAPENTIN 300 MG CAP PO SCH (10:33)
[2024-04-10] MEDS: PANTOPRAZOLE 40MG TABLET PO SCH (10:33)
[2024-04-10 10:45] LABS: Absolute Eosinophils 0.1 K/uL (0-0.5); Absolute Monocytes 1.7 K/uL (0.1-1.3); Basophils % 0.8 % (0-1.3); Eosinophils % 2.1 % (0-4.4); Hematocrit 21.1 % (39.6-49.0); Hemoglobin 6.5 g/dL (13.6-17.9); Lymphocytes % 36.8 % (15.3-44.8); MCH 22.7 pg (27.0-35.0); MCV 73.4 fL (80-100); MPV 7.6 fL (7.6-11.3); Monocytes % 58.7 % (3.3-12.3); Neutrophils % 1.6 % (41.7-73.7); Nucleated Red Blood Cells % 0.3 % (0-0); Platelets 452 thou/uL (152-406); RBC Red Blood Cell Count 2.88 M/uL (4.33-5.43); Red Cell Distribution Width 22.3 % (12.1-15.2)
[2024-04-10 10:58] LABS: Anion Gap 7.1 mEq/L (5.0-15.0); Potassium 4.1 mEq/L (3.5-5.1)
[2024-04-10 11:48] LABS: Differential Total Cells Count 100; Eosinophils 3 % (0-3); Lymphocytes 54 % (15-42); Monocytes 39 % (0-10); Nucleated Red Blood Cells 1 /100WBC; Segmented Neutrophils 2 % (40-80)
[2024-04-10 11:49] LABS: Anisocytosis 2+; Blood Morphology Comment NOTED (NOT SEEN); Hypochromasia 3+; Platelet Estimate ADEQ
[2024-04-10] MEDS: LACTULOSE 20 GM/30 ML UCUP PO ONE (19:49)
--- NOTE | 2024-04-10 19:55 | RAD REPORT ---
EXAM DESCRIPTION: RAD - Abdomen 1 View (KUB) - 04/10/2024 7:38 pm CLINICAL HISTORY: Abdomen pain FINDINGS: The bowel gas pattern is unremarkable. Gallstone visualized
[2024-04-10] MEDS: TRAZODONE 50 MG TABLET ONE (21:08)
[2024-04-10] MEDS: TRAZODONE 50 MG TABLET PO SCH (21:09)
--- NOTE | 2024-04-11 08:52 | P.PN ---
Subjective Date of Service: 04/11/24 Chief Complaint: Cellulitis Patient's pain has improved has been a slight decline in his hemoglobin Review of Systems General: Weakness Musculoskeletal: Leg Pain Physical Examination - Vital Signs Temperature: 97.2 F Blood Pressure: 130/57 Pulse: 90 Respirations: 14 Pulse Ox (%): 94 - Physical Exam General: Alert, Oriented x3, Mild distress Respiratory: Clear to auscultation bilaterally Cardiovascular: No edema, Regular rate/rhythm, Normal S1 S2 Assessment And Plan - Current Problems (Diagnosis) (1) Cellulitis of left lower extremity Current Visit: No Status: Acute Plan: Patient's pain seems to have improved plan to ambulate with physical therapy plan for discharge tomorrow on antibiotics another [address] Galloway (2) Anemia Current Visit: Yes Status: Acute Plan: Patient has a progressive decline in his hemoglobin patient has a mild microcytic anemia we will check iron levels transfuse 1 unit of packed red blood cells Qualifiers: Anemia type: iron deficiency
[2024-04-11 09:28] LABS: Hemoglobin 7.4 g/dL (13.6-17.9); MCH 23.3 pg (27.0-35.0); MCHC 31.9 g/dL (32.0-36.0); MCV 73.1 fL (80-100); MPV 7.7 fL (7.6-11.3); Platelets 409 thou/uL (152-406); RBC Red Blood Cell Count 3.15 M/uL (4.33-5.43)
[2024-04-11 11:18] LABS: Ferritin 108.3 ng/mL (26-388)
[2024-04-11] MEDS: SOD FERRIC GLUC COMPLX/SUCROSE 250 MG in NA CHLORIDE 0.9% 250 ML IV SCH (13:24)
[2024-04-11] MEDS: NA CHLORIDE 0.9% 250 ML ONE (16:10)
[2024-04-11 21:44] LABS: Hematocrit 25.1 % (39.6-49.0); Hemoglobin 8.1 g/dL (13.6-17.9)
[2024-04-12 05:50] LABS: Absolute Eosinophils 0.5 K/uL (0-0.5); Absolute Lymphocytes (CBC) 1.5 K/uL (0.7-4.9); Absolute Monocytes 2.4 K/uL (0.1-1.3); Absolute Neutrophil 0.5 K/uL (1.8-8.0); Basophils % 0.1 % (0-1.3); Eosinophils % 9.9 % (0-4.4); Hematocrit 25.7 % (39.6-49.0); Hemoglobin 8.2 g/dL (13.6-17.9); MCHC 31.8 g/dL (32.0-36.0); MCV 75.6 fL (80-100); MPV 7.6 fL (7.6-11.3); Nucleated Red Blood Cells % 0.3 % (0-0); Platelets 378 thou/uL (152-406)
--- NOTE | 2024-04-12 10:46 | P.PN ---
Date of Service: 04/12/24 Subjective: feeling better today given 1uPRBC overnight, feels like he has more energy this morning denies any obvious bleeding afebrile ROS: 10 point ROS as noted above, otherwise negative Physical Exam: GEN: Alert, oriented, NAD HEENT: Normal conjunctiva, sclera anicteric, CV: Regular rate and rhythm, no edema Pulm: Nonlabored respirations on room air, clear bilaterally Integumentary: LLE wound with dressing in place, c/d/i Neuro: Normal speech, normal affect Problem List: chronic nonhealing lower left extremity wound, s/p I&D (04/07) acute on chronic anemia / severe iron deficiency anemia 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 s/p multiple treatments at different facilities with various IV abx. Wound cx from ER visit (04/05): grew MRSA. Prior wound cx (03/27): also grew MRSA / enterobacter cloacae Dr. Solorio, general surgeon is following s/p I&D of chronic chronic nonhealing lower left extremity wound (04/07) wound care per surgery keep legs elevated continue empiric levaquin / doxy (04/09-) afebrile, no leukocytosis continue PT PRN analgesics / antiemetics acute on chronic anemia / severe iron deficiency anemia iron studies consistent with severe iron deficiency anemia (iron 10.0, tsat% 6.2%) hgb down to 6.5 (6/) s/p 1uPRBC overnight continue IV iron (s/p 3 bags so far) continue to monitor H&H. continue PPI hgb stable last 24 hours VTE: Lovenox Code: Full Dispo: Home with vs SNF patient's brother concerned about patient going home on discharge. Concerned unable to care for himself / afford and get medications
[2024-04-12] MEDS: MORPHINE 2 MG/ML SYR IV ONE (16:26)
[2024-04-13 06:06] LABS: Absolute Eosinophils 0.5 K/uL (0-0.5); Absolute Lymphocytes (CBC) 1.6 K/uL (0.7-4.9); Absolute Monocytes 1.8 K/uL (0.1-1.3); Absolute Neutrophil 0.6 K/uL (1.8-8.0); Eosinophils % 10.6 % (0-4.4); Hematocrit 24.9 % (39.6-49.0); Hemoglobin 7.9 g/dL (13.6-17.9); Lymphocytes % 35.3 % (15.3-44.8); MCH 24.2 pg (27.0-35.0); MCHC 31.8 g/dL (32.0-36.0); MPV 7.5 fL (7.6-11.3); Monocytes % 39.7 % (3.3-12.3); Neutrophils % 13.4 % (41.7-73.7); Nucleated Red Blood Cells % 0.3 % (0-0); Platelets 343 thou/uL (152-406); RBC Red Blood Cell Count 3.28 M/uL (4.33-5.43); Red Cell Distribution Width 23.5 % (12.1-15.2)
[2024-04-13 06:19] LABS: Anion Gap 5.1 mEq/L (5.0-15.0); Magnesium 2.1 mg/dL (1.6-2.4); Potassium 4.1 mEq/L (3.5-5.1)
[2024-04-13] MEDS: TBO-FILGRASTIM 480 MCG/0.8 ML SYR SQ SCH (08:45)
--- NOTE | 2024-04-13 10:40 | P.PN ---
Date of Service: 04/13/24 Subjective: no acute changes feeling a bit better, ambulated with PT more ROS: 10 point ROS as noted above, otherwise negative Physical Exam: GEN: Alert, oriented, NAD HEENT: Normal conjunctiva, sclera anicteric, CV: Regular rate and rhythm, no edema Pulm: Nonlabored respirations on room air, clear bilaterally Integumentary: LLE wound with dressing in place, c/d/i Neuro: Normal speech, normal affect Problem List: chronic nonhealing lower left extremity wound, s/p I&D (04/07) acute on chronic anemia / severe iron deficiency anemia hx congenital neutropenia chronic nonhealing lower left extremity wound, s/p I&D (04/07) Dealing with lower extremity wounds since ~June 2023. s/p multiple treatments at different facilities with various IV abx. Wound cx from ER visit (04/05): grew MRSA. Prior wound cx (03/27): also grew MRSA / enterobacter cloacae Dr. Solorio, general surgeon is following s/p I&D of chronic chronic nonhealing lower left extremity wound (04/07) wound care per surgery keep legs elevated continue empiric levaquin / doxy 2 wks total (04/09-) afebrile, no leukocytosis continue PT PRN analgesics / antiemetics acute on chronic anemia / severe iron deficiency anemia iron studies consistent with severe iron deficiency anemia (iron 10.0, tsat% 6.2%) continue IV iron (s/p 3 bags so far) s/p 1uPRBC (04/11) continue PPI hgb stable last 24-48hrs VTE: Lovenox Code: Full Dispo: Current plan to dc home given out of pocket cost of SNF is too much for patient/family anticipate tomorrow patient to follow up with Dr. Solorio weekly
[2024-04-13] MEDS: COLLAGENASE 30 GM OINTMENT TOP SCH (10:51)
[2024-04-14] MEDS ORDERED: COLLAGENASE 30 GM OINTMENT TOP SCH (09:00)
[2024-04-14 09:13] VITALS: O2SAT 96
--- NOTE | 2024-04-14 09:48 | P.DS ---
Admission Date: 04/06/24 Discharge Date: 04/14/24 Disposition: [facility] HOME/HOME HEALTH CARE Discharge Condition: GOOD Reason for Admission: Cellulitis Consultations: General surgery - Dr. Solorio Brief History of Present Illness: 33yo M, PMH: congenital neutropenia, anemia, nonhealing wounds and chronic left lower extremity skin ulcer history of debridement of left lower extremity ulcer, morbid obesity and physical disability. Patient has been followed by Dr. Solorio for nonhealing wound left lower extremity and was sent over to the ER for surgical debridement of lower extremity lesion. Denies any fever or chills. No nausea vomiting or diarrhea. Pain is still present. Patient states that history is a chronic wound which has been going on for the last 2 months. Started as very small lesion and had multiple debridement and was on IV antibiotic. Hospital Course: Problem List: chronic nonhealing lower left extremity wound, s/p I&D (04/07) acute on chronic anemia / severe iron deficiency anemia hx congenital neutropenia Physician discharge instructions: Patient presented with worsening chronic nonhealing wound of the lower left extremity. Patient was evaluated by Dr. Solorio, general surgeon and was taken to OR for I&D of nonhealing wound on 04/07. Wound culture from ER visit day before admission grew MRSA. Patient completed ~1 week of levaquin/doxycycline and is to complete 1 more week on discharge for total of 2 weeks antibiotic therapy. (end date: 04/22/24) Patient was feeling better, afebrile > 48 hours, pain improving, and deemed stable for discharge. Advised patient to follow up with Dr. Solorio in office in ~1 week for continued management / wound care. Please call Dr. Solorio's office at time of discharge to confirm his office has wound care dressing supplies available for pickup on the way home. During his hospitalization, hemoglobin was noted to drop to 6.5, requiring 1 blood transfusion on 04/11. Hemoglobin remained stable for the rest of his hospitalization post transfusion. Suspect multifactorial etiology secondary to recent surgery complicated by severe iron deficiency anemia. Patient denies any recent bleeding. No obvious bleeds on exam. No bloody stools. Iron studies this hospitalization consistent with severe iron deficiency (iron 10.0, tsat% 6.2%). Patient received 4 bags of IV iron while hospitalized and should continue oral iron supplementation on discharge. Advised to recheck iron levels in a few months. hgb on discharge: 8.2 Medications: Levaquin & doxycycline (end date: 04/22/24) oxycodone 7.5/325 - 15 pills as needed for pain iron tablets Pepcid Santyl Refill sent for robaxin / methocarbamol Follow up: PCP 3-[address] Solorio in ~1-2 weeks please call to schedule / confirm appointments Physical Exam: GEN: Alert, oriented, NAD HEENT: Normal conjunctiva, sclera anicteric, CV: Regular rate and rhythm, no edema Pulm: Nonlabored respirations on room air, clear bilaterally Integumentary: LLE wound with dressing in place, c/d/i Neuro: Normal speech, normal affect Vital Signs/Physical Exam: Temp Pulse Resp BP Pulse Ox 97.1 F 72 17 151/76 H 96 04/14/24 04:00 04/14/24 04:00 04/14/24 04:00 04/14/24 04:00 04/14/24 04:00 Laboratory Data at Discharge: WBC 4.60 thou/uL (4.3-10.9) 04/13/24 05:45 Hgb 7.9 g/dL (13.6-17.9) L 04/13/24 05:45 Hct 24.9 % (39.6-49.0) L 04/13/24 05:45 Plt Count 343 thou/uL (152-406) 04/13/24 05:45 PT 14.6 SECONDS (9.5-12.5) H 04/06/24 23:19 INR 1.34 04/06/24 23:19 Sodium 137 mEq/L (136-145) 04/13/24 05:45 Potassium 4.1 mEq/L (3.5-5.1) 04/13/24 05:45 BUN 9 mg/dL (7-18) 04/13/24 05:45 Creatinine 0.82 mg/dL (0.70-1.30) 04/13/24 05:45 Glucose 141 mg/dL (74-106) H 04/13/24 05:45 Magnesium 2.1 mg/dL (1.6-2.4) 04/13/24 05:45 Total Bilirubin 0.3 mg/dL (0.2-1.0) 04/07/24 05:45 AST 12 U/L (15-37) L 04/07/24 05:45 ALT < 14 U/L (16-61) L 04/07/24 05:45 Alkaline Phosphatase 36 U/L (45-117) L 04/07/24 05:45 Home Medications: Tramadol HCl [Ultram] 100 mg PO Q6HP PRN 04/07/24 Trazodone [Desyrel*] 100 mg PO BEDTIME 04/07/24 Collagenase [Santyl Ointment*] 1 appl TOP DAILY 14 Days #1 tube 04/14/24 Doxycycline Monohydrate [Mondoxyne Nl] 100 mg PO BID 7 Days #14 cap 04/14/24 Famotidine [Pepcid] 20 mg PO DAILY 30 Days #30 tab 04/14/24 Ferrous Sulfate [Feosol] 325 mg PO DAILY 30 Days #30 tab 04/14/24 Oxycodone HCl/Acetaminophen [Oxycodone-Acetaminophn 7.5-325] 1 tab PO Q6H PRN #15 tab 04/14/24 levoFLOXacin [Levaquin*] 750 mg PO DAILY 7 Days #7 tab 04/14/24 methocarbamoL [Robaxin*] 500 mg PO TID PRN #15 tab 04/14/24 New Medications: Ferrous Sulfate [Feosol] 325 mg PO DAILY 30 Days #30 tab levoFLOXacin [Levaquin*] 750 mg PO DAILY 7 Days #7 tab Doxycycline Monohydrate [Mondoxyne Nl] 100 mg PO BID 7 Days #14 cap Oxycodone HCl/Acetaminophen [Oxycodone-Acetaminophn 7.5-325] 1 tab PO Q6H PRN #15 tab PRN Reason: Pain Scale 8-10 (Severe) Famotidine [Pepcid] 20 mg PO DAILY 30 Days #30 tab methocarbamoL [Robaxin*] 500 mg PO TID PRN #15 tab PRN Reason: Muscle Spasms Collagenase [Santyl Ointment*] 1 appl TOP DAILY 14 Days #1 tube Physician Discharge Instructions: Physician discharge instructions: Patient presented with worsening chronic nonhealing wound of the lower left extremity. Patient was evaluated by Dr. Solorio, general surgeon and was taken to OR for I&D of nonhealing wound on 04/07. Wound culture from ER visit day before admission grew MRSA. Patient completed ~1 week of levaquin/doxycycline and is to complete 1 more week on discharge for total of 2 weeks antibiotic therapy. (end date: 04/22/24) Patient was feeling better, afebrile > 48 hours, pain improving, and deemed stable for discharge. Advised patient to follow up with Dr. Solorio in office in ~1 week for continued management / wound care. Please call Dr. Solorio's office at time of discharge to confirm his office has wound care dressing supplies available for pickup on the way home. During his hospitalization, hemoglobin was noted to drop to 6.5, requiring 1 blood transfusion on 04/11. Hemoglobin remained stable for the rest of his hospitalization post transfusion. Suspect multifactorial etiology secondary to recent surgery complicated by nkechi re iron deficiency anemia. Patient denies any recent bleeding. No obvious bleeds on exam. No bloody stools. Iron studies this hospitalization consistent with severe iron deficiency (iron 10.0, tsat% 6.2%). Patient received 4 bags of IV iron while hospitalized and should continue oral iron supplementation on discharge. Advised to recheck iron levels in a few months. hgb on discharge: 8.2 Medications: Levaquin & doxycycline (end date: 04/22/24) oxycodone 7.5/325 - 15 pills as needed for pain iron tablets Pepcid Santyl Refill sent for robaxin / methocarbamol Follow up: PCP 3-[address] Solorio in ~1-2 weeks please call to schedule / confirm appointments Followup: NONE,NONE [Primary Care Provider] - Time spent managing pt's care (in minutes): 45
[2024-04-14 10:04] LABS: Hematocrit 25.6 % (39.6-49.0); Hemoglobin 8.2 g/dL (13.6-17.9); MCH 24.2 pg (27.0-35.0); MCHC 32.1 g/dL (32.0-36.0); MCV 75.3 fL (80-100); MPV 7.9 fL (7.6-11.3); Platelets 336 thou/uL (152-406); Red Cell Distribution Width 23.8 % (12.1-15.2)
[2024-04-14 12:30] VITALS: BP 138/57; TEMP 97.7
== END 2024-04-14 16:00 | disposition home health service (06) | DRG 264 ==
LOC: ER 20:04 → ERHOLD 23:25 → 2ND 04-07 01:15
PROVIDERS: ADMIT Family Medicine; ATTEND Hospitalist
PROC: 02HV33Z Insertion of Infusion Device into Superior Vena Cava, Percutaneous Approach (ICD-10-PCS; 2024-04-06)
PROC: 5A09557 Assistance with Respiratory Ventilation, Greater than 96 Consecutive Hours, Continuous Positive Airway Pressure (ICD-10-PCS; 2024-04-07)
PROC: 0JBP0ZZ Excision of Left Lower Leg Subcutaneous Tissue and Fascia, Open Approach (ICD-10-PCS; principal; 2024-04-07 12:30)
PROC: 30233N1 Transfusion of Nonautologous Red Blood Cells into Peripheral Vein, Percutaneous Approach (ICD-10-PCS; 2024-04-11)
DX: I96 Gangrene, not elsewhere classified (principal); L03.116 Cellulitis of left lower limb; Z68.41 Body mass index [BMI] 40.0-44.9, adult; L97.829 Non-pressure chronic ulcer of other part of left lower leg with unspecified severity; E66.01 Morbid (severe) obesity due to excess calories; D50.9 Iron deficiency anemia, unspecified; D70.0 Congenital agranulocytosis; G47.33 Obstructive sleep apnea (adult) (pediatric); Z86.14 Personal history of Methicillin resistant Staphylococcus aureus infection; Z79.899 Other long term (current) drug therapy
CPT/HCPCS: 36415; 36430; 71045; 74018; 80048; 80053; 80202; 81001; 82728; 82947; 83540; 83605; 83735; 84466; 85014; 85018; 85025; 85027; 85610; 85730; 86850; 86900; 86901; 86920; 87040; 87070; 87205; 88304; 93005; 94660; 94760; 96361; 96374; 97116; 97161; 97530; 99285; J0692; J1170; J1447; J1650; J2001; J2175; J2250; J2270; J2405; J2550; J2704; J2765; J2916; J3010; J3590; J7030; J7040; J7050; J8597; P9016

== ENCOUNTER 2024-04-25 14:04 | Emergency (ER) | payer OTHER ==
[2024-04-25 15:10] LABS: Specific Gravity 1.025 (1.005-1.030); Sqamous Epithelial <5 /HPF (None Seen); Urine Bacteria None Seen /HPF (<20); Urine Bilirubin NEGATIVE (Negative); Urine Blood Negative (Negative); Urine Clarity Clear (Clear); Urine Color Yellow (Yellow); Urine Culture Reflex Order NOT NEEDED; Urine Glucose NEGATIVE (Negative); Urine Ketones TRACE (Negative); Urine Microscopic Reflex YN ORDER UMIC; Urine Mucus Slight /HPF (None Seen); Urine Nitrite NEGATIVE (Negative); Urine Protein TRACE (Negative); Urine RBC <5 /HPF (None Seen); Urine Urobilinogen Normal (Normal); Urine WBC <5 /HPF (<5); Urine WBC Clump Rare /HPF (None Seen)
[2024-04-25 15:18] LABS: SARS-CoV-2 Antigen CONTROL BLUE LINE VIS/BG OK; SARS-CoV-2 Antigen Rapid Res Negative (Negative)
[2024-04-25] MEDS ORDERED: NA CHLORIDE 0.9% 500 ML ONE (16:32)
[2024-04-25 16:56] LABS: Absolute Eosinophils 0.2 K/uL (0-0.5); Absolute Lymphocytes (CBC) 1.7 K/uL (0.7-4.9); Hematocrit 31.7 % (39.6-49.0); Hemoglobin 10.3 g/dL (13.6-17.9); MCH 25.1 pg (27.0-35.0); MCHC 32.4 g/dL (32.0-36.0); MCV 77.5 fL (80-100); MPV 7.4 fL (7.6-11.3); Monocytes % 34.9 % (3.3-12.3); Neutrophils % 1.1 % (41.7-73.7); Nucleated Red Blood Cells % 0.2 % (0-0); Platelets 380 thou/uL (152-406); RBC Red Blood Cell Count 4.09 M/uL (4.33-5.43); Red Cell Distribution Width 26.7 % (12.1-15.2)
--- NOTE | 2024-04-25 16:57 | RAD REPORT ---
EXAM DESCRIPTION: CT - Head Brain Wo Cont - 04/25/2024 2:36 pm CLINICAL HISTORY: syncope, head injury COMPARISON: Head Brain Wo Cont dated 04/01/2024; Head Brain Wo Cont dated 03/26/2024 TECHNIQUE: Noncontrast head CT images were obtained without IV contrast. Multiplanar reformats were generated and reviewed. All CT scans are performed using dose optimization technique as appropriate and may include automated exposure control or mA/KV adjustment according to patient size. FINDINGS: No intracranial hemorrhage, mass, or edema. Midline structures are unremarkable. Normal ventricular caliber for age. Garcia-white matter differentiation is preserved, without evidence of acute infarct. No abnormal extra- axial fluid collections. Mastoid air cells show patchy opacification on the left. Visualized paranasal sinuses are well aerate d. No acute bony findings. IMPRESSION: No evidence of an acute intracranial process.
[2024-04-25 17:11] LABS: PT Prothrombin Time 14.5 SECONDS (9.5-12.5); PTT, Activated Partial Thromb 33.8 SECONDS (24.3-36.9); Protime INR 1.33
[2024-04-25 17:13] LABS: ALT/SGPT 26 U/L (16-61); AST/SGOT 17 U/L (15-37); Albumin 2.7 g/dL (3.4-5.0); Albumin/Globulin Ratio 0.4 (1.1-1.8); Alkaline Phosphatase 56 U/L (45-117); Anion Gap 9.7 mEq/L (5.0-15.0); BUN Blood Urea Nitrogen 13 mg/dL (7-18); Bicarbonate 24 mEq/L (21-32); Bilirubin Total 0.4 mg/dL (0.2-1.0); Globulin 6.5 g/dL (2.3-3.5); Glomerular Filtration Rate 116 ml/min (=/>90); Glucose Level 96 mg/dL (74-106); Magnesium 2.2 mg/dL (1.6-2.4); Potassium 3.7 mEq/L (3.5-5.1); Protein, Total 9.2 g/dL (6.4-8.2); Sodium Level 135 mEq/L (136-145); Troponin High Sensitivity 19.6 pg/mL (<58.9)
[2024-04-25 17:18] LABS: Bilirubin Direct < 0.2 mg/dL (0-0.2); Bilirubin Indirect, Calculated 0.2 mg/dL (0.2-0.8)
--- NOTE | 2024-04-25 18:00 | RAD REPORT ---
EXAM DESCRIPTION: RADChest Single View04/25/2024 3:12 pm CLINICAL HISTORY: cough, syncope COMPARISON: Abdomen 1 View (KUB) dated 04/10/2024; Chest Single View dated 04/06/2024; Chest Single Vie w dated 04/01/2024; Chest Single View dated 03/25/2024 TECHNIQUE: Portable AP view of the chest. FINDINGS: The lungs are clear. No pneumothorax or effusion. The cardiomediastinal contours are unre markable. IMPRESSION: No acute cardiopulmonary process.
--- NOTE | 2024-04-25 18:09 | ER ---
Nurse's Notes [facility] Name: Abel Maria Age: 33 yrs Sex: Male : 1990 Arrival Date: 04/25/2024 Time: 14:04 Bed 17 Private MD: Diagnosis: Syncope;Heat exhaustion, unspecified, initial encounter Presentation: 04/25 14:15 Chief complaint: Patient states: Found on floor by home health nurse. Helped up off ll1 floor, then they called 911. Was seen here 2 weeks ago, couldn't afford prescriptions provided. [facility] states: [facility]. Coronavirus screen: Client denies travel out of the [place] in the last 14 days. At this time, the client does not indicate any symptoms associated with coronavirus-19. Ebola Screen: Patient denies travel to an Ebola-affected area in the 21 days before illness onset. No acute neurological deficit is noted. Initial Sepsis Screen: Does the patient meet any 2 criteria? No. Patient's initial sepsis screen is negative. Does the patient have a suspected source of infection? No. Patient's initial sepsis screen is negative. Risk Assessment: Do you want to hurt yourself or someone else? Patient reports no desire to harm self or others. Onset of symptoms was April 25, 2024. 14:15 Method Of Arrival: EMS ll1 14:15 Acuity: RICH 3 ll1 Triage Assessment: 14:15 Neuro: Level of Consciousness is awake, alert, obeys commands, Oriented to person, aa5 place, time, situation. Neuro: Reports generalized weakness . Respiratory: Airway is patent Respiratory effort is even, unlabored, Respiratory pattern is regular, symmetrical. Derm: Skin is dry, Skin is pale, Skin temperature is warm. Stroke Activation: Symptom onset > 6 hours Physician: ED Attending; Name: ; Notified At: ; Arrived At: Physician: Mid-Level Provider; Name: ; Notified At: ; Arrived At: Physician: [not used]; Name: ; Notified At: ; Arrived At: Physician: [not used]; Name: ; Notified At: ; Arrived At: Physician: [not used]; Name: ; Notified At: ; Arrived At: Historical: - Allergies: 14:16 No Known Allergies; ll1 - PMHx: 14:16 Congenital neutropenia; Sleep Apnea; ll1 - PSHx: 14:16 eye; leg; rectum; ll1 - Immunization history:: Adult Immunizations up to date. - Infectious Disease History:: Denies. - Family history:: not pertinent. - Hospitalizations: : The patient was recently seen at [facility]. - Social history:: Smoking status: Patient denies any tobacco usage or history of. Screenin:18 [facility] ED Fall Risk Assessment (Adult) History of falling in the last 3 months, mb9 including since admission Yes- single mechanical fall (1 pt) Confusion or Disorientation No (0 pts) Intoxicated or Sedated No (0 pts) Impaired Gait Yes (1 pt) Mobility Assist Device Used Yes (1 pt) Altered Elimination No (0 pt) Score/Fall Risk Level 3 or more points = High Risk Oriented to surroundings, Maintained a safe environment, Educated pt \T\ family on fall prevention, incl call for assistance when getting out of bed. Abuse screen: Denies threats or abuse. Nutritional screening: No deficits noted. Tuberculosis screening: No symptoms or risk factors identified. Assessment: 16:52 General: Appears in no apparent distress. Behavior is calm, cooperative. Pain: mb9 Complains of pain in head Pain does not radiate. Quality of pain is described as throbbing, Pain began suddenly. Neuro: Blue Agitation-Sedation Scale (RASS): 0 - Alert and Calm Level of Consciousness is awake, alert, obeys commands, Oriented to person, place, time, situation, Appropriate for age Reports dizziness, headache. Cardiovascular: Heart tones S1 S2 present Patient's skin is warm and dry. Respiratory: Airway is patent Respiratory effort is even, unlabored, Respiratory pattern is regular, symmetrical. GI: Abdomen is round non-distended, Bowel sounds present X 4 quads. Abd is soft and non tender X 4 quads. : No signs and/or symptoms were reported regarding the genitourinary system. EENT: No signs and/or symptoms were reported regarding the EENT system. Derm: Skin is pink, warm \T\ dry. Musculoskeletal: Range of motion: intact in all extremities. 18:17 Reassessment: No changes from previously documented assessment. Patient and/or family mb9 updated on plan of care and expected duration. Pain level reassessed. Patient is alert, oriented x 3, equal unlabored respirations, skin warm/dry/pink. Vital Signs: 14:15 BP 146 / 93; Pulse 78; Resp 20 S; Temp 99.4(O); Pulse Ox 98% on R/A; Weight 111.13 kg aa5 (R); Height 5 ft. 2 in. (R); 17:08 BP 145 / 70; Pulse 78; Resp 18; Pulse Ox 100% on R/A; mb9 18:18 BP 138 / 61; Pulse 69; Resp 18; Pulse Ox 100% on R/A; mb9 14:15 Body Mass Index 44.81 (111.13 kg, 157.48 cm) aa5 ED Course: 14:14 Patient arrived in ED. im 14:16 Triage completed. ll1 14:17 Arm band placed on. ll1 14:19 Yared Banks MD is Attending Physician. rn 14:36 CT Head Brain wo Cont In Process Unspecified. EDMS 14:48 Strep Sent. bc6 14:48 Flu Sent. bc6 14:48 SARS RAPID Sent. bc6 15:00 Urinalysis w/ reflexes Sent. sm8 15:14 Chest Single View XRAY In Process Unspecified. EDMS 16:30 Raquel Denise, RN is Primary Nurse. mb9 16:52 Placed in gown. Bed in low position. Call light in reach. Side rails up X 1. Provided mb9 Education on: press call light if needing anything. Client placed on continuous cardiac and pulse oximetry monitoring. NIBP monitoring applied. monitoring and evaluation advisor on. 16:52 Initial lab(s) drawn, by or, sent to lab. Inserted saline lock: 24 gauge in right hand, mb9 using aseptic technique. 17:08 EKG done, by ED staff, reviewed by Yared Banks MD. mb9 18:08 Clyde Solorio MD is Referral Physician. rn 18:19 No provider procedures requiring assistance completed. IV discontinued, intact, mb9 bleeding controlled, No redness/swelling at site. Pressure dressing applied. Administered Medications: 16:52 Drug: NS 0.9% IV 500 ml IV at bolus once Route: IV; Rate: bolus; Site: right hand; mb9 18:19 Follow up: Response: No adverse reaction; IV Status: Completed infusion mb9 Medication: 16:31 VIS not applicable for this client. mb9 Outcome: 18:08 Discharge ordered by . rn 18:23 Discharged to home via wheelchair, [email or web address] 18:23 Condition: stable 18:23 Discharge instructions given to patient, Instructed on discharge instructions, follow up and referral plans. Demonstrated understanding of instructions, follow-up care, 18:24 Patient left the ED. [email or web address] Signatures: Dispatcher [employer] EDMS Yared Banks MD MD rn Calderon, Audri RN RN aa5 Darion Monge RN RN 1 Raquel Denise RN RN mb9 Melissa Villa 6 Norah Ferrer Scarlett 8 Corrections: (The following items were deleted from the chart) 14:25 14:15 BP 146 / 93; Pulse 78bpm; Resp 20bpm; Spontaneous; Pulse Ox 98% RA; Temp 99.4F aa5 Oral; aa5
--- NOTE | 2024-04-25 18:09 | EDPHYS ---
Physician Documentation [facility] Name: Abel Maria Age: 33 yrs Sex: Male : 1990 Arrival Date: 04/25/2024 Time: 14:04 Bed 17 Private MD: ED Physician Yared Banks HPI: 04/25 14:45 This 33 yrs old Male presents to ER via EMS with complaints of syncope, Weakness. rn 14:46 The patient has experienced syncope. Onset: The symptoms/episode began/occurred today. rn Duration: This was a single episode. Associated injury: The patient did not suffer any apparent associated injury. The patient has not experienced similar symptoms in the past. Patient reports felt fine when woke up today, denies recent illness. States was waiting for home health to arrive, stood up and passed out. Single episode. Found on ground, and hot camper without AC. Patient denies any vomiting or blood in the stool. Does report diarrhea for the last few days. Has been taking antibiotics for leg wound and recently had debridement. Also reports had blood transfusion during hospitalization for anemia and given iron supplements. Historical: - Allergies: 14:16 No Known Allergies; ll1 - PMHx: 14:16 Congenital neutropenia; Sleep Apnea; ll1 - PSHx: 14:16 eye; leg; rectum; ll1 - Immunization history:: Adult Immunizations up to date. - Infectious Disease History:: Denies. - Family history:: not pertinent. - Hospitalizations: : The patient was recently seen at [facility]. - Social history:: Smoking status: Patient denies any tobacco usage or history of. ROS: 14:46 Constitutional: Negative for fever, chills, and weight loss, Neck: Negative for injury, rn pain, and swelling, Cardiovascular: Negative for chest pain, palpitations, and edema, Respiratory: Negative for shortness of breath, cough, wheezing, and pleuritic chest pain, Abdomen/GI: Negative for abdominal pain, nausea, vomiting, diarrhea, and constipation, MS/Extremity: Negative for injury and deformity, Skin: Negative for injury, rash, and discoloration, Neuro: Positive for generalized weakness dizziness Exam: 14:46 Constitutional: This is a well developed, well nourished patient who is appears pale, rn in wheelchair Head/Face: Normocephalic, atraumatic. ENT: Dry mucous membranes Cardiovascular: Regular rate and rhythm. No pulse deficits. Respiratory: No increased work of breathing, no retractions or nasal flaring. Abdomen/GI: Soft, non-tender MS/ Extremity: Pulses equal, no cyanosis Neuro: Awake and alert, GCS 15, oriented to person, place, time, and situation. Cranial nerves II-XII grossly intact. Motor strength 4/5 in all extremities. Sensory grossly intact. 17:14 ECG was reviewed by the Attending Physician. rn Vital Signs: 14:15 BP 146 / 93; Pulse 78; Resp 20 S; Temp 99.4(O); Pulse Ox 98% on R/A; Weight 111.13 kg aa5 (R); Height 5 ft. 2 in. (R); 17:08 BP 145 / 70; Pulse 78; Resp 18; Pulse Ox 100% on R/A; mb9 18:18 BP 138 / 61; Pulse 69; Resp 18; Pulse Ox 100% on R/A; mb9 14:15 Body Mass Index 44.81 (111.13 kg, 157.48 cm) aa5 MDM: 14:19 Patient medically screened. rn 18:07 Differential Diagnosis: cardiac arrhythmia, emotional response, idiopathic syncope, rn vasovagal episode, Heat exhaustion, anemia. Data reviewed: vital signs, nurses notes, lab test result(s), EKG, radiologic studies, CT scan, plain films, and as a result, I will discharge patient. Care significantly affected by the following chronic conditions: Neutropenia, chronic leg wound. Counseling: I had a detailed discussion with the patient and/or guardian regarding the historical points, exam findings, and any diagnostic results supporting the discharge/admit diagnosis, lab results, radiology results, the need for outpatient follow up, to return to the emergency department if symptoms worsen or persist or if there are any questions or concerns that arise at home. Special discussion: I discussed with the patient/guardian in detail that at this point there is no indication for admission to the hospital. It is understood, however, that if the symptoms persist or worsen the patient needs to return immediately for re-evaluation. ED course: No acute findings and workup today. No further episodes of syncope. Has low-grade fever, currently on antibiotics still from hospitalization. Could be a viral illness. Chest x-ray negative for pneumonia. No oxygen requirement. Will discharge home with return precautions. I have personally reviewed all of the results, including but not limited to blood tests and imaging deemed necessary to safely discharge this patient at this time. All results given to and printed out for patient. I personally went over all the results with the patient and answered all questions. Patient will follow-up with PCP and or specialist as discussed. Return precautions given and understood.. 04/25 14:25 Order name: Basic Metabolic Panel; Complete Time: 17:04/25 14:25 Order name: CBC with Diff rn 04/25 14:25 Order name: Hepatic Function; Complete Time: 17:19 04/25 14:25 Order name: Magnesium; Complete Time: 17:04/25 14:25 Order name: Protime (+inr); Complete Time: 17:18 04/25 14:25 Order name: Ptt, Activated; Complete Time: 17:18 04/25 14:25 Order name: Troponin High Sensitivity; Complete Time: 17:19 rn 04/25 14:25 Order name: Urinalysis w/ reflexes; Complete Time: 17:11 04/25 14:25 Order name: SARS RAPID; Complete Time: 17:11 04/25 14:25 Order name: Flu; Complete Time: 17:11 04/25 14:25 Order name: Strep 04/25 15:21 Order name: Throat Culture EDKY 04/25 14:25 Order name: Chest Single View XRAY; Complete Time: 18:07 04/25 14:25 Order name: CT Head Brain wo Cont; Complete Time: 17:11 04/25 14:25 Order name: EKG; Complete Time: 14:26 04/25 14:25 Order name: Cardiac monitoring; Complete Time: 16:52 04/25 14:25 Order name: EKG - Nurse/Tech; Complete Time: 16:52 04/25 14:25 Order name: IV Saline Lock; Complete Time: 16:52 04/25 14:25 Order name: Labs collected and sent; Complete Time: 16:52 04/25 14:25 Order name: O2 Per Protocol; Complete Time: 16:52 04/25 14:25 Order name: O2 Sat Monitoring; Complete Time: 16:52 rn EC:14 Rate is 72 beats/min. Rhythm is regular. QRS [place] is Normal. AR interval is normal. QRS rn interval is normal. QT interval is normal. No Q waves. T waves are Normal. No ST changes noted. Clinical impression: Normal ECG. Interpreted by me. Reviewed by me. Administered Medications: 16:52 Drug: NS 0.9% IV 500 ml IV at bolus once Route: IV; Rate: bolus; Site: right hand; mb9 18:19 Follow up: Response: No adverse reaction; IV Status: Completed infusion mb9 Disposition Summary: 04/25/24 18:08 Discharge Ordered Notes: Location: Home rn Problem: new rn Symptoms: have improved rn Condition: Stable rn Diagnosis - Syncope rn - Heat exhaustion, unspecified, initial encounter rn Followup: rn - With: Clyde Solorio MD - When: As needed - Reason: Recheck today's complaints, Re-evaluation by your physician Discharge Instructions: - Discharge Summary Sheet rn - Syncope rn - Heat Exhaustion rn Forms: - Medication Reconciliation Form rn - Antibiotic director learning - Prescription Opioid Use rn - Patient Portal Instructions rn - Leadership Thank You Letter rn Signatures: Dispatcher [employer] EDMS Yared Banks MD MD rn Lewis, Lynsay, RN RN ll1 Raquel Denise RN RN mb9 Corrections: (The following items were deleted from the chart) 14:26 14:26 BASIC METABOLIC PANEL+C.LAB.BRZ ordered. EDKY EDMS 14:26 14:26 CBC+H.LAB.BRZ ordered. EDKY EDMS 14:26 14:26 HEPATIC FUNCTION+C.LAB.BRZ ordered. EDKY EDMS 14:26 14:26 MAGNESIUM+C.LAB.BRZ ordered. EDKY EDMS 14:26 14:26 PROTIME (+INR)+COAG.LAB.BRZ ordered. EDKY EDMS 14:26 14:26 PTT, ACTIVATED+COAG.LAB.BRZ ordered. EDKY EDMS 14:26 14:26 Troponin High Sensitivity+C.LAB.BRZ ordered. EDKY EDMS 14:26 14:26 Urinalysis+U.LAB.BRZ ordered. EDKY EDMS 14:26 14:26 SARS-COV-2 Antigen Rapid+I.LAB.BRZ ordered. EDKY EDMS 14:26 14:26 Influenza Screen (A \T\ B)+BA.LAB.BRZ ordered. EDMS EDMS 14:26 14:26 Group A Streptococcus Rapid Sc+BA.LAB.BRZ ordered. EDMS EDMS
[2024-04-25 18:42] VITALS: BP 138/61; TEMP 99.4; O2SAT 100
[2024-04-25 18:53] LABS: Differential Total Cells Count 100
[2024-04-25 18:54] LABS: Eosinophils 2 % (0-3); Lymphocytes 84 % (15-42); Monocytes 5 % (0-10); Platelet Estimate INCR; Segmented Neutrophils 9 % (40-80)
[2024-04-25 18:55] LABS: Anisocytosis 3+; Blood Morphology Comment NOTED (NOT SEEN); Poikilocytosis 2+
--- NOTE | 2024-04-26 14:15 | EKG ---
Test Date: 2024-04-25 Test Time: 17:06:05 Loading Shovel Oiler: MB MEASUREMENT RESULTS: Intervals: Rate: 72 NC: 148 QRSD: 78 QT: 418 QTc: 457 [place]: P: 55 NC: 148 QRS: 70 T: 45 INTERPRETIVE STATEMENTS: Normal sinus rhythm Normal ECG Compared to ECG 04/05/2024 17:43:52 Sinus arrhythmia no longer present Electronically Signed On 04-26-24 14:12:27 CDT by Reno Mendiola
== END 2024-04-25 18:24 | disposition home or self-care (01) ==
LOC: ER 14:04
DX: R55 Syncope and collapse (principal); T67.5XXA Heat exhaustion, unspecified, initial encounter; Z11.52 Encounter for screening for COVID-19
CPT/HCPCS: 93005; 87070; 85025; 81001; 80048; 36415; 83735; 85610; 80076; 87081; 85730; 84484; 87804 ×2; 70450; 71045; 96360; 99285; 87811; J7040

== ENCOUNTER 2024-05-04 10:54 | Inpatient (IN) | payer OTHER ==
[2024-05-04] MEDS ORDERED: NA CHLORIDE 0.9% 1,000 ML ONE (11:23)
[2024-05-04 11:54] LABS: Absolute Eosinophils 0.1 K/uL (0-0.5); Absolute Lymphocytes (CBC) 1.1 K/uL (0.7-4.9); Absolute Monocytes 1.6 K/uL (0.1-1.3); Absolute Neutrophil 0.2 K/uL (1.8-8.0); Basophils % 0.8 % (0-1.3); Eosinophils % 2.7 % (0-4.4); Hematocrit 32.4 % (39.6-49.0); Hemoglobin 10.6 g/dL (13.6-17.9); Lymphocytes % 36.8 % (15.3-44.8); MCH 25.7 pg (27.0-35.0); MCHC 32.6 g/dL (32.0-36.0); MCV 78.8 fL (80-100); MPV 8.5 fL (7.6-11.3); Monocytes % 53.1 % (3.3-12.3); Neutrophils % 6.6 % (41.7-73.7); Platelets 363 thou/uL (152-406); RBC Red Blood Cell Count 4.11 M/uL (4.33-5.43); Red Cell Distribution Width 25.2 % (12.1-15.2)
[2024-05-04 12:10] LABS: Albumin 2.3 g/dL (3.4-5.0); Albumin/Globulin Ratio 0.3 (1.1-1.8); Anion Gap 12.5 mEq/L (5.0-15.0); Bilirubin Total 0.8 mg/dL (0.2-1.0); Potassium 3.5 mEq/L (3.5-5.1); Protein, Total 9.3 g/dL (6.4-8.2)
[2024-05-04 12:32] LABS: Anisocytosis 2+; Band Neutrophils 4 % (0-1); Blood Morphology Comment NOTED (NOT SEEN); Differential Total Cells Count 100; Eosinophils 2 % (0-3); Lymphocytes 45 % (15-42); Microcytosis 1+; Monocytes 38 % (0-10); Platelet Estimate ADEQ; Segmented Neutrophils 10 % (40-80)
--- NOTE | 2024-05-04 13:15 | ER ---
Nurse's Notes [facility] Name: Abel Maria Age: 33 yrs Sex: Male : 1990 Arrival Date: 05/04/2024 Time: 10:54 Bed 13 Private MD: Diagnosis: Pain in left lower leg;Acute lyrnphangitis of left lower limb-worsening;Anemia, unspecified;Neutropenia, unspecified-congenital;Bandemia Presentation: 05/04 11:30 Chief complaint: Patient states: Sent over by Dr Solorio, has seen him earlier today, [facility] instructed to come to ED because he will perform debridement to left leg. 11:30 Ebola Screen: Patient denies travel to an Ebola-affected area in the 21 days before [facility] illness onset. Risk Assessment: Do you want to hurt yourself or someone else? Patient reports no desire to harm self or others. Onset of symptoms was 2023. 11:30 Method Of Arrival: Ambulatory [facility] 11:30 Acuity: RICH 3 [facility] 12:08 Initial Sepsis Screen: Does the patient meet any 2 criteria? HR > 90 bpm. No. Patient's [facility] initial sepsis screen is negative. Does the patient have a suspected source of infection? No. Patient's initial sepsis screen is negative. 12:11 Coronavirus screen: Vaccine status: Patient reports receiving the 2nd dose of the covid nj1 vaccine. 15:31 Initial Sepsis Screen: Does the patient meet any 2 criteria?. [facility] Historical: - PMHx: 12:04 Congenital neutropenia; Sleep Apnea; [facility] - PSHx: 12:04 eye; leg; rectum; nj1 - Immunization history:: Adult Immunizations unknown. - Social history:: Smoking status: unknown. - Family history:: not pertinent. Screenin:10 [facility] ED Fall Risk Assessment (Adult) History of falling in the last 3 months, [facility] including since admission No falls in past 3 months (0 pts) Confusion or Disorientation No (0 pts) Intoxicated or Sedated No (0 pts) Impaired Gait No (0 pts) Mobility Assist Device Used No (0 pt) Altered Elimination No (0 pt) Score/Fall Risk Level 0 - 2 = Low Risk Oriented to surroundings, Maintained a safe environment, Hourly rounding (assess needs \T\ fall precautionary measures) done. Abuse screen: Denies threats or abuse. Denies injuries from another. Nutritional screening: No deficits noted. Tuberculosis screening: No symptoms or risk factors identified. Assessment: 11:30 General: Appears in no apparent distress. uncomfortable, Behavior is calm, cooperative, nj1 appropriate for age. Pain: Complains of pain in left leg Pain currently is 7 out of 10 on a pain scale. 11:30 Neuro: Level of Consciousness is awake, alert, obeys commands, Oriented to person, nj1 place, time, situation. Cardiovascular: Patient's skin is warm and dry. Respiratory: Airway is patent Respiratory effort is even, unlabored. 11:30 Derm: Reports Wound to left leg, has seen Dr Solorio today for follow up, instructed to nj1 come to ED because Dr Solorio will perform debridement to it. Covered. 12:56 Reassessment: Patient appears in no apparent distress at this time. Patient and/or wi1 family updated on plan of care and expected duration. Pain level reassessed. Patient is alert, oriented x 3, equal unlabored respirations, skin warm/dry/pink. 15:09 Reassessment: Patient appears in no apparent distress at this time. Patient and/or nj1 family updated on plan of care and expected duration. Pain level reassessed. Patient is alert, oriented x 3, equal unlabored respirations, skin warm/dry/pink. Vital Signs: 11:35 BP 124 / 60; Pulse 95; Resp 18; Temp 97.6(O); Pulse Ox 97% on R/A; Weight 113.4 kg; nj1 Height 5 ft. 2 in. ; Pain 7/10; 12:55 BP 109 / 69; Pulse 80; Resp 18; Pulse Ox 99% on R/A; Pain 7/10; nj1 15:08 BP 110 / 66; Pulse 69; Resp 18; Temp 96.8(TE); Pulse Ox 100% on R/A; nj1 11:35 Body Mass Index 45.73 (113.40 kg, 157.48 cm) nj1 11:35 Pain Scale: Adult nj 12:55 Pain Scale: Adult [facility] ED Course: 10:59 Patient arrived in ED. mg5 11:02 Castillo Camacho MD is Attending Physician. [facility] 11:17 Madyson Ni RN is Primary Nurse. nj1 11:40 Patient has correct armband on for positive identification. Bed in low position. Call nj1 light in reach. Side rails up X 1. Provided Education on: call light, fall precautions. 11:40 Inserted saline lock: 20 gauge in right antecubital area, using aseptic technique. nj1 Blood collected. Ultrasound guided. Catheter tip well visualized within vasculature during placement. 12:04 Triage completed. nj1 12:05 Arm band placed on. nj1 13:14 Apollo Ribeiro is Hospitalizing Provider. [facility] 15:20 No provider procedures requiring assistance completed. nj1 15:20 Patient admitted, IV remains in place. nj1 Administered Medications: 11:40 Drug: NS 0.9% IV 1000 ml IV at 1 bolus Per protocol; 1000 mL bolus Route: IV; Rate: 1 nj1 bolus; Site: right antecubital; 13:00 Follow up: Response: No adverse reaction; IV Status: Completed infusion; IV Intake: nj1 1000ml 13:25 Drug: Ondansetron IVP 4 mg IVP once; over 2 minutes Route: IVP; Site: right upper arm; kj2 14:35 Follow up: Response: No adverse reaction nj1 13:35 Drug: Piperacillin-Tazobactam IVPB 3.375 grams IVPB once over 60 mins; (mix in NS 100 kj2 mL) Route: IVPB; Infused Over: 60 mins; Site: right upper arm; 14:35 Follow up: Response: No adverse reaction; IV Status: Completed infusion; IV Intake: nj1 100ml 13:40 Drug: morphine IVP or IV 4 mg IVP once over 4 mins Route: IVP; Infused Over: 4 mins; kj2 Site: right forearm; 14:35 Follow up: Response: No adverse reaction nj1 Medication: 15:20 VIS not applicable for this client. nj1 Intake: 13:00 IV: 1000ml; Total: 1000ml. nj1 14:35 IV: 100ml; Total: 1100ml. nj1 Outcome: 13:15 Decision to Hospitalize by Provider. [facility] 15:20 Admitted to Med/surg accompanied by nurse, via wheelchair, room 217, nj1 15:20 Condition: stable 15:20 Instructed on the need for admit, nj1 15:52 Patient left the ED. nj1 Signatures: Castillo Camacho MD MD cha Jaco, Norma RN RN nj1 Marla Carpenter mg5 Renetta Cervantes, SONG RN kj2 Corrections: (The following items were deleted from the chart) 12:08 11:35 BP 124 / 60; Pulse 95bpm; Resp 18bpm; Pulse Ox 97% RA; Pain 7/10, Adult; wi1 [facility] 12:56 12:55 BP 109 / 69; Pulse 98bpm; Resp 18bpm; Pulse Ox 99% RA; Pain 05/18, Adult; wi1 nj1 15:31 15:08 BP 110 / 66; Pulse 69bpm; Resp 18bpm; Pulse Ox 100% RA; [facility] nj1
--- NOTE | 2024-05-04 13:15 | EDPHYS ---
Physician Documentation [facility] Name: Abel Maria Age: 33 yrs Sex: Male : 1990 Arrival Date: 05/04/2024 Time: 10:54 Bed 13 Private MD: ED Physician Castillo Camacho HPI: 05/04 13:07 This 33 yrs old Male presents to ER via Ambulatory with complaints of Sent By adriel Trent 13:07 The patient presents with decreased range of motion, pain, swelling, tenderness. The adriel complaints affect the lateral aspect of left calf. Context: The problem was sustained at an unknown site, resulted from an unknown cause, the patient can fully bear weight. Modifying factors: The symptoms are alleviated by nothing. elevating leg, the symptoms are aggravated by movement. Associated signs and symptoms: Pertinent positives: swelling, warmth, of the lateral aspect of left calf. Treatment prior to arrival includes: [place] wrap. Severity of symptoms: At their worst the symptoms were moderate, in the emergency department the symptoms are unchanged. The patient has experienced similar episodes in the past, multiple times. Historical: - PMHx: 12:04 Congenital neutropenia; Sleep Apnea; nj1 - PSHx: 12:04 eye; leg; rectum; nj1 - Immunization history:: Adult Immunizations unknown. - Social history:: Smoking status: unknown. - Family history:: not pertinent. ROS: 13:07 Constitutional: Negative for fever, chills, and weight loss, Eyes: Negative for injury, adriel pain, redness, and discharge, ENT: Negative for injury, pain, and discharge, Neck: Negative for injury, pain, and swelling, Cardiovascular: Negative for chest pain, palpitations, and edema, Respiratory: Negative for shortness of breath, cough, wheezing, and pleuritic chest pain, Abdomen/GI: Negative for abdominal pain, nausea, vomiting, diarrhea, and constipation, Back: Negative for injury and pain, : Negative for injury, bleeding, discharge, and swelling, Neuro: Negative for headache, weakness, numbness, tingling, and seizure, Psych: Negative for depression, anxiety, suicide ideation, homicidal ideation, and hallucinations, Allergy/Immunology: Negative for hives, rash, and allergies, Endocrine: Negative for neck swelling, polydipsia, polyuria, polyphagia, and marked weight changes, Hematologic/Lymphatic: Negative for swollen nodes, abnormal bleeding, and unusual bruising, 13:07 MS/extremity: Positive for erythema, pain, swelling, tenderness, of the lateral aspect of left calf, Exam: 13:07 Constitutional: This is a well developed, well nourished patient who is awake, alert, adrile and in no acute distress. Head/Face: Normocephalic, atraumatic. Eyes: Pupils equal round and reactive to light, extra-ocular motions intact. Lids and lashes normal. Conjunctiva and sclera are non-icteric and not injected. Cornea within normal limits. Periorbital areas with no swelling, redness, or edema. ENT: Nares patent. No nasal discharge, no septal abnormalities noted. Tympanic membranes are normal and external auditory canals are clear. Oropharynx with no redness, swelling, or masses, exudates, or evidence of obstruction, uvula midline. Mucous membranes moist. Neck: Trachea midline, no thyromegaly or masses palpated, and no cervical lymphadenopathy. Supple, full range of motion without nuchal rigidity, or vertebral point tenderness. No Meningismus. Chest/axilla: Normal chest wall appearance and motion. Nontender with no deformity. No lesions are appreciated. Cardiovascular: Regular rate and rhythm with a normal S1 and S2. No gallops, murmurs, or rubs. Normal PMI, no JVD. No pulse deficits. Respiratory: Lungs have equal breath sounds bilaterally, clear to auscultation and percussion. No rales, rhonchi or wheezes noted. No increased work of breathing, no retractions or nasal flaring. Abdomen/GI: Soft, non-tender, with normal bowel sounds. No distension or tympany. No guarding or rebound. No evidence of tenderness throughout. Back: No spinal tenderness. No costovertebral tenderness. Full range of motion. Male : Normal genitalia with no discharge or lesions. Neuro: Awake and alert, GCS 15, oriented to person, place, time, and situation. Cranial nerves II-XII grossly intact. Motor strength 5/5 in all extremities. Sensory grossly intact. Cerebellar exam normal. Normal gait. Psych: Awake, alert, with orientation to person, place and time. Behavior, mood, and affect are within normal limits. 13:07 Skin: cellulitis, that is mild, induration, that is moderate is noted, Wound recheck: Abscess: more erythema, more pain, more surrounding cellulitis, Vital Signs: 11:35 BP 124 / 60; Pulse 95; Resp 18; Temp 97.6(O); Pulse Ox 97% on R/A; Weight 113.4 kg; nj1 Height 5 ft. 2 in. ; Pain 7/10; 12:55 BP 109 / 69; Pulse 80; Resp 18; Pulse Ox 99% on R/A; Pain 7/10; nj1 15:08 BP 110 / 66; Pulse 69; Resp 18; Temp 96.8(TE); Pulse Ox 100% on R/A; nj1 11:35 Body Mass Index 45.73 (113.40 kg, 157.48 cm) nj 11:35 Pain Scale: Adult [facility] 12:55 Pain Scale: Adult wa1 MDM: 11:02 Patient medically screened. [facility] 13:10 Differential diagnosis: contusion, abrasion, tendonitis. Data reviewed: vital signs, [facility] nurses notes, lab test result(s). Consideration of Admission/Observation Patient was admitted/placed on observation. Escalation of care including admission/observation considered. I considered the following discharge prescriptions or medication management in the emergency department Medications were administered in the Emergency Department. See MAR. Test considered but Not performed: Ultrasound no venous doppler. Historians other than the Patient: dr rodriguez. Care significantly affected by the following chronic conditions: obese, congenital neutropenia, sleep apnea. 05/04 11:02 Order name: CBC with Diff; Complete Time: 13:06 [facility] 05/04 11:02 Order name: Comprehensive Metabolic Panel; Complete Time: 13:06 [facility] 05/04 11:02 Order name: Urinalysis w/ reflexes; Complete Time: 13:52 [facility] 05/04 11:02 Order name: Lipase; Complete Time: 13:06 [facility] 05/04 11:05 Order name: UDS; Complete Time: 13:52 [facility] 05/04 12:00 Order name: Manual Differential; Complete Time: 13:06 [facility] 05/04 14:38 Order name: Basic Metabolic Panel [facility] 05/04 14:38 Order name: Basic Metabolic Panel [facility] 05/04 14:38 Order name: Basic Metabolic Panel [facility] 05/04 14:38 Order name: Basic Metabolic Panel [facility] 05/04 14:38 Order name: Basic Metabolic Panel [facility] 05/04 14:38 Order name: Basic Metabolic Panel [facility] 05/04 14:38 Order name: CBC with Automated Diff ED[facility] 05/04 14:38 Order name: CBC with Automated Diff EDMS 05/04 14:38 Order name: CBC with Automated Diff EDMS 05/04 14:38 Order name: CBC with Automated Diff EDMS 05/04 14:38 Order name: CBC with Automated Diff EDMS 05/04 14:38 Order name: CBC with Automated Diff EDMS 05/04 14:38 Order name: Magnesium EDMS 05/04 14:38 Order name: Magnesium EDMS 05/04 14:38 Order name: Magnesium EDMS 05/04 14:38 Order name: Magnesium EDMS 05/04 14:38 Order name: Magnesium EDMS 05/04 14:38 Order name: Magnesium EDMS 05/04 14:38 Order name: Phosphorus EDMS 05/04 14:38 Order name: Phosphorus EDMS 05/04 14:38 Order name: Phosphorus EDMS 05/04 14:38 Order name: Phosphorus EDMS 05/04 14:38 Order name: Phosphorus EDMS 05/04 14:38 Order name: Phosphorus EDMS 05/04 14:38 Order name: CONS Physician Consult EDMS 05/04 14:38 Order name: Social Service Consult EDMS Administered Medications: 11:40 Drug: NS 0.9% IV 1000 ml IV at 1 bolus Per protocol; 1000 mL bolus Route: IV; Rate: 1 nj1 bolus; Site: right antecubital; 13:00 Follow up: Response: No adverse reaction; IV Status: Completed infusion; IV Intake: nj1 1000ml 13:25 Drug: Ondansetron IVP 4 mg IVP once; over 2 minutes Route: IVP; Site: right upper arm; kj2 14:35 Follow up: Response: No adverse reaction nj1 13:35 Drug: Piperacillin-Tazobactam IVPB 3.375 grams IVPB once over 60 mins; (mix in NS 100 kj2 mL) Route: IVPB; Infused Over: 60 mins; Site: right upper arm; 14:35 Follow up: Response: No adverse reaction; IV Status: Completed infusion; IV Intake: nj1 100ml 13:40 Drug: morphine IVP or IV 4 mg IVP once over 4 mins Route: IVP; Infused Over: 4 mins; kj2 Site: right forearm; 14:35 Follow up: Response: No adverse reaction nj1 Disposition Summary: 05/04/24 13:15 Hospitalization Ordered Notes: Hospitalization Status: Observation adriel Provider: Apollo Ribeiro cha Location: Telemetry/MedSurg (observation) adriel Condition: Fair adriel Problem: new adriel Symptoms: have worsened adriel Bed/Room Type: Standard [facility] Room Assignment: 217(05/04/24 14:49) bd Diagnosis - Pain in left lower leg adriel - Acute lyrnphangitis of left lower limb - worsening adriel - Anemia, unspecified adriel - Neutropenia, unspecified - congenital adriel - Bandemia adriel Forms: - Medication Reconciliation Form adriel - SBAR form adriel - Leadership Thank You Letter adriel Signatures: Dispatcher [employer] EDMelissa Padilla Corey, MD MD cha Jaco, Norma, RN RN nj1 Renetta Cervantes RN RN kj2 Corrections: (The following items were deleted from the chart) 14:49 13:15 adriel bd
[2024-05-04] MEDS ORDERED: MORPHINE 4 MG/ML SYR ONE (13:17)
[2024-05-04] MEDS ORDERED: ONDANSETRON 4 MG/2 ML VIAL ONE (13:17)
[2024-05-04] MEDS ORDERED: PIPERACIL/TAZO 3.375 GM VIAL IV ONE (13:18)
[2024-05-04] MEDS ORDERED: NA CHLORIDE 0.9% 100 ML ONE (13:18)
[2024-05-04 13:24] LABS: Specific Gravity 1.016 (1.005-1.030); Sqamous Epithelial None Seen /HPF (None Seen); Urine Bacteria None Seen /HPF (<20); Urine Bilirubin NEGATIVE (Negative); Urine Blood 2+ (Negative); Urine Clarity Turbid (Clear); Urine Color Yellow (Yellow); Urine Culture Reflex Order NOT NEEDED; Urine Glucose NEGATIVE (Negative); Urine Ketones 2+ (Negative); Urine Microscopic Reflex YN ORDER UMIC; Urine Nitrite NEGATIVE (Negative); Urine Protein 1+ (Negative); Urine Urobilinogen Normal (Normal); Urine WBC <5 /HPF (<5); Urine pH 6.5 (5.0-7.0)
[2024-05-04 13:25] LABS: Barbiturates NEGATIVE (NEGATIVE); Benzodiazepines NEGATIVE (NEGATIVE); Cocaine NEGATIVE (NEGATIVE); METHAMPHETAM NEGATIVE (NEGATIVE); Methadone NEGATIVE (NEGATIVE); Opiates NEGATIVE (NEGATIVE); Phencyclidine NEGATIVE (NEGATIVE); THC Cannibis NEGATIVE (NEGATIVE)
--- NOTE | 2024-05-04 13:33 | P.HP ---
Certification for Inpatient Patient admitted to: Inpatient With expected LOS: >2 Midnights Patient will require the following post-hospital care: None Practitioner: I am a practitioner with admitting privileges, knowledge of patient current condition, hospital course, and medical plan of care. Services: Services provided to patient in accordance with Admission requirements found in Title 42 Section 412.3 of the Code of Federal Regulations Patient History Date of Service: 05/04/24 Reason for admission: chronic wound to left lower extremity History of Present Illness: Abel aMria is a 33-year-old male with past medical history of congenital neutropenia, anemia, sleep apnea, chronic wound to left lower extremity who was sent to the ED by Dr. Solorio. Abel was recently discharged s/p I and D of left lower extremity and to continue antibiotic ending on 04/22/24 also continuing with wound care with Dr. Solorio. Initial vitals: BP 124 / 60; Pulse 95; Resp 18; Temp 97.6(O); Pulse Ox 97% on R/A Laboratory evaluation WBC 3, H&H 10.6/32.4, sodium 131, serum glucose 150, UA negative for infectious process, toxicology pending. Abel will be admitted to hospitalist service for further treatment of chronic wound to left lower extremity, Dr. Solorio consulted. Allergies No Known Allergies Allergy (Unverified 10/26/23 16:35) Home Medications: Tramadol HCl [Ultram] 100 mg PO Q6HP PRN 04/07/24 Trazodone [Desyrel*] 100 mg PO BEDTIME 04/07/24 Collagenase [Santyl Ointment*] 1 appl TOP DAILY 14 Days #1 tube 04/14/24 Doxycycline Monohydrate [Mondoxyne Nl] 100 mg PO BID 7 Days #14 cap 04/14/24 Famotidine [Pepcid] 20 mg PO DAILY 30 Days #30 tab 04/14/24 Ferrous Sulfate [Feosol] 325 mg PO DAILY 30 Days #30 tab 04/14/24 Oxycodone HCl/Acetaminophen [Oxycodone-Acetaminophn 7.5-325] 1 tab PO Q6H PRN #15 tab 04/14/24 levoFLOXacin [Levaquin*] 750 mg PO DAILY 7 Days #7 tab 04/14/24 methocarbamoL [Robaxin*] 500 mg PO TID PRN #15 tab 04/14/24 - Past Medical/Surgical History Diabetic: No -: Neutropenia -: Anemia -: Non healing wounds on the abdominal wall and the LLE -: Debriedement of the wounds on the left leg -: 03/29/24 LEXISCAN INJECTED. CARDIOLITE INJECTED no ischemia Psychosocial/ Personal History: Pt lives in a trailer next door to his Brother. He has been in numerous hospitals over the course of the past two months - Family History Mother Notes: Severe chronic acute Congenital neutropenia - Social History Alcohol use: No CD- Drugs: No Caffeine use: No Review of Systems Musculoskeletal: Leg Pain (left) Neurological: Other (dizziness) Physical Examination - Physical Exam General: Alert, In no apparent distress, Oriented x3 HEENT: Atraumatic, Normocephalic, PERRLA Neck: Supple, 2+ carotid pulse no bruit Respiratory: Clear to auscultation bilaterally, Normal air movement Cardiovascular: Normal pulses, Regular rate/rhythm, Normal S1 S2 Capillary refill: <2 Seconds Gastrointestinal: Normal bowel sounds, Soft and benign, Distended (obese) Musculoskeletal: Other (left lower extremity with AMARJIT bandage) Integumentary: Skin breakdown (left lower extremity) Neurological: Normal speech, Normal tone - Studies Laboratory Data (last 24 hrs) 05/04/24 05/04/24 11:40 11:40 WBC 3.00 L Hgb 10.6 L Hct 32.4 L Plt Count 363 Sodium 131 L Potassium 3.5 BUN 11 Creatinine 1.21 Glucose 150 H Total Bilirubin 0.8 AST 19 ALT 23 Alkaline Phosphatase 51 Lipase 11 L Assessment and Plan - Plan Assessment and plan Chronic non-healing wound to left lower extremity -Dr. Solorio consulted, incision and drainage in a.m. -N.p.o. -Completed Doxy and Levaquin 04/22 -Zosyn given in the ED -Unasyn Q8Hr -Pain control -Gentle IV fluid History of Congenital neutropenia History of anemia -monitor in AM labs -Sees Dr. Chanel outpatient -transfuse PRN History of ALLISON -Supprotive care -CPAP at night DVT Ppx SCD to right leg Full code LOS 2 days Discharge Plan: Home Plan to discharge in: 48 Hours - Advance Directives Does patient have a Living Will: No Does patient have a Durable POA for Healthcare: No
[2024-05-04] MEDS ORDERED: ACETAMINOPHEN 500 MG TAB PO PRN (14:23)
[2024-05-04 16:18] VITALS: BMI 44.8
[2024-05-04] MEDS: NA CHLORIDE 0.9% 1,000 ML IV SCH (16:21)
[2024-05-04] MEDS: AMPICILLIN/SULBACT 3 GM in NA CHLORIDE 0.9% 100 ML IVPB SCH (16:48)
[2024-05-04] MEDS: TRAZODONE 50 MG TABLET PO SCH (20:54)
[2024-05-04] MEDS: MORPHINE 2 MG/ML SYR IV PRN (21:17)
[2024-05-04] MEDS: MORPHINE 4 MG/ML SYR IV PRN (21:19)
[2024-05-05] MEDS: methocarbamoL 500 MG TAB PO PRN (00:10)
[2024-05-05 03:46] LABS: Absolute Eosinophils 0.4 K/uL (0-0.5); Absolute Monocytes 0.9 K/uL (0.1-1.3); Absolute Neutrophil 0.1 K/uL (1.8-8.0); Eosinophils % 17.3 % (0-4.4); Hematocrit 26.8 % (39.6-49.0); Hemoglobin 8.9 g/dL (13.6-17.9); Lymphocytes % 39.6 % (15.3-44.8); MCH 25.7 pg (27.0-35.0); MCHC 33.1 g/dL (32.0-36.0); MCV 77.6 fL (80-100); MPV 8.4 fL (7.6-11.3); Monocytes % 37.3 % (3.3-12.3); Neutrophils % 3.8 % (41.7-73.7); Nucleated Red Blood Cells % 0.3 % (0-0); Platelets 299 thou/uL (152-406); RBC Red Blood Cell Count 3.45 M/uL (4.33-5.43); Red Cell Distribution Width 24.2 % (12.1-15.2)
[2024-05-05 03:50] LABS: Anion Gap 5.6 mEq/L (5.0-15.0); Magnesium 2.3 mg/dL (1.6-2.4); Phosphorus 4.2 mg/dL (2.5-4.9); Potassium 3.6 mEq/L (3.5-5.1)
[2024-05-05] MEDS: FERROUS SULFATE 325 MG TAB PO SCH (09:00)
--- NOTE | 2024-05-05 10:55 | P.PN ---
Date of Service: 05/05/24 Subjective Sleeping, comfortable ROS 10 point ROS as noted above, otherwise negative Physical Exam General: Alert and oriented x3, NAD HEENT: Atraumatic, Normocephalic, PERRLA Neck: Supple, 2+ carotid pulse no bruit Respiratory: Clear to auscultation bilaterally, Normal air movement, on room air Cardiovascular: Normal pulses, sinus tachycardia, Normal S1 S2 Capillary refill: <2 Seconds Gastrointestinal: Normal bowel sounds, Soft and benign on palpation, nontender, Distended (obese) Musculoskeletal: Other (left lower extremity with AMARJIT bandage) Integumentary: Skin breakdown (left lower extremity) Neurological: Normal speech, Normal tone Vitals Reviewed Problem list Chronic non-healing wound to left lower extremity History of Congenital neutropenia History of anemia History of ALLISON Assessment and Plan Chronic non-healing wound to left lower extremity -Dr. Solorio consulted, incision and drainage in a.m. -N.p.o. -Completed Doxy and Levaquin 04/22 -Zosyn given in the ED -Unasyn Q8Hr -Pain control -Gentle IV fluid History of Congenital neutropenia History of anemia -monitor in AM labs -Sees Dr. Chanel outpatient -transfuse PRN History of ALLISON -Supprotive care -CPAP at night DVT Ppx SCD to right leg Full code LOS 2 days Discharge Plan: Home
[2024-05-05] MEDS ORDERED: FENTANYL CITR 100 MCG/2 ML ONE (13:12)
[2024-05-05] MEDS ORDERED: MIDAZOLAM HCL 2 MG/2 ML INJ ONE (13:12)
[2024-05-05] MEDS ORDERED: propofoL 200 MG/20 ML VIAL IV ONE (13:12)
[2024-05-05] MEDS ORDERED: LIDOCAINE 1% MPF 5 ML VIAL ONE (13:12)
[2024-05-05] MEDS: LIDOCAINE HCL/EPINEPHRINE 20 ML MDV ONE (13:30)
[2024-05-05] MEDS ORDERED: ROCURONIUM 50 MG/5 ML VIAL IV ONE (13:40)
[2024-05-05] MEDS ORDERED: KETOROLAC 30 MG/ML INJ ONE (14:21)
--- NOTE | 2024-05-05 14:45 | P.OP ---
Preoperative diagnosis: LEFT Calf Chronic Wound Postoperative diagnosis: LEFT Calf Chronic Wound Primary procedure: Wide Debridement of LEFT Calf Chronic Wound Anesthesia: GETA Estimated blood loss: <30cc Specimen: Debridement Tissue Findings: Superficial slough and necrosis 20 cm x 16cm to fascia Complications: None Transferred to: Recovery Room Condition: Good
[2024-05-05] MEDS: MORPHINE 4 MG/ML SYR ONE ×2 (15:09→15:24)
[2024-05-05] MEDS: MORPHINE 4 MG/ML SYR IV ONE (16:19)
[2024-05-05] MEDS: HYDROCODONE/APAP 7.5/325 MG TAB PO PRN (22:45)
--- NOTE | 2024-05-06 01:43 | OP ---
Date of Procedure: 05/05/2024 Surgeon: Clyde Solorio MD, Preoperative Diagnosis: Left calf chronic wound. Postoperative Diagnosis: Left calf chronic wound. Procedure Performed: Wide local debridement of left chronic calf wound. Anesthesia: General endotracheal. Estimated Blood Loss: 30 cc. Specimen: Debrided tissue. Findings: Superficial slough and superficial necrosis of left calf, posterior area, approximately 20 cm x 16 cm down to the fascia overlying the muscle. Complications: None. The patient transferred to recovery room in good condition. Procedure In Detail: After informed consent was obtained, patient brought to the operating room, pre pped and draped in the usual sterile fashion after adequate anesthesia was achieved. I used a curett e to cleanse out an area of obvious superficial slough and necrosis of some granulation combined with hypertrophic granulation and necrotic tissue of the posterior calf, approximately 20 cm x 16 cm down to the fascia overlying the muscle. This was debrided using combination of blunt dissection as well as sharp dissection with a curette, ultimately removing the nonviable tissue and affected tissues. At this point, I used a pulse lavage to clean out this area until the area was completely cleansed. I then used electrocautery to achieve hemostasis. I then packed the wound with a piece of Adaptic, f ollowed by Vashe-soaked Kerlix, and a sterile dressing placed over top. The patient tolerated the pr ocedure without incident or complication and transferred to PACU in good condition. All counts were correct at the end of the case. NAEL/SRINATH Voice ID: [id number] Report ID: [id number]
[2024-05-06 04:29] LABS: Absolute Eosinophils 0.4 K/uL (0-0.5); Absolute Monocytes 0.5 K/uL (0.1-1.3); Basophils % 1.4 % (0-1.3); Eosinophils % 18.3 % (0-4.4); Hematocrit 22.5 % (39.6-49.0); Hemoglobin 7.3 g/dL (13.6-17.9); Lymphocytes % 52.5 % (15.3-44.8); MCH 25.5 pg (27.0-35.0); MCHC 32.2 g/dL (32.0-36.0); MPV 8.4 fL (7.6-11.3); Monocytes % 25.5 % (3.3-12.3); Neutrophils % 2.3 % (41.7-73.7); Nucleated Red Blood Cells % 0.3 % (0-0); Platelets 273 thou/uL (152-406); RBC Red Blood Cell Count 2.85 M/uL (4.33-5.43); Red Cell Distribution Width 23.8 % (12.1-15.2)
[2024-05-06 04:40] LABS: Anion Gap 6.1 mEq/L (5.0-15.0); Magnesium 2.3 mg/dL (1.6-2.4); Phosphorus 4.2 mg/dL (2.5-4.9); Potassium 4.1 mEq/L (3.5-5.1)
--- NOTE | 2024-05-06 09:13 | P.PN ---
Date of Service: 05/06/24 Subjective No acute events overnight C/O pain to LLE after surgery yesterday ROS 10 point ROS as noted above, otherwise negative Physical Exam General: Alert and oriented x3, NAD HEENT: Atraumatic, Normocephalic, PERRLA Neck: Supple, 2+ carotid pulse no bruit Respiratory: Clear to auscultation bilaterally, Normal air movement, on room air Cardiovascular: Normal pulses, sinus tachycardia, Normal S1 S2 Capillary refill: <2 Seconds Gastrointestinal: Normal bowel sounds, Soft and benign on palpation, nontender, Distended (obese) Musculoskeletal: Other (left lower extremity with AMARJIT bandage) Integumentary: Skin breakdown (left lower extremity) Neurological: Normal speech, Normal tone Vitals Reviewed Problem list Chronic non-healing wound to left lower extremity S/P I&D 05/05 History of Congenital neutropenia History of anemia History of ALLISON Plan Chronic non-healing wound to left lower extremity S/P I&D 05/05 S/P I&D 05/05 Completed Doxy and Levaquin 04/22 Unasyn Q8Hr Pain control Await further recs from general surgery History of Congenital neutropenia History of anemia monitor in AM labs Sees Dr. Chanel outpatient transfuse PRN History of ALLISON Supprotive care CPAP at night DVT Ppx SCD to right leg, discuss lovenox with general surgery Full code LOS 2 days Discharge Plan: Home
[2024-05-06] MEDS: HYDROCODONE/APAP 10/325 TAB PO PRN (10:37)
[2024-05-06 11:58] LABS: Hematocrit 23.3 % (39.6-49.0); Hemoglobin 7.5 g/dL (13.6-17.9)
[2024-05-07 05:38] LABS: Absolute Eosinophils 0.3 K/uL (0-0.5); Absolute Lymphocytes (CBC) 1.5 K/uL (0.7-4.9); Absolute Monocytes 0.7 K/uL (0.1-1.3); Absolute Neutrophil 0.1 K/uL (1.8-8.0); Basophils % 0.9 % (0-1.3); Eosinophils % 11.5 % (0-4.4); Hematocrit 24.1 % (39.6-49.0); Hemoglobin 7.8 g/dL (13.6-17.9); Lymphocytes % 56.8 % (15.3-44.8); MCH 25.5 pg (27.0-35.0); MCHC 32.3 g/dL (32.0-36.0); MPV 8.4 fL (7.6-11.3); Monocytes % 27.2 % (3.3-12.3); Neutrophils % 3.6 % (41.7-73.7); Nucleated Red Blood Cells % 0.2 % (0-0); Platelets 348 thou/uL (152-406); RBC Red Blood Cell Count 3.06 M/uL (4.33-5.43); Red Cell Distribution Width 24.5 % (12.1-15.2)
[2024-05-07 05:55] LABS: Anion Gap 8.9 mEq/L (5.0-15.0); Magnesium 2.3 mg/dL (1.6-2.4); Phosphorus 4.2 mg/dL (2.5-4.9); Potassium 3.9 mEq/L (3.5-5.1)
[2024-05-07] MEDS: LIDOCAINE 4% PATCH TOP SCH (09:30)
[2024-05-07 11:13] LABS: Differential Total Cells Count 100; Eosinophils 12 % (0-3); Lymphocytes 59 % (15-42); Monocytes 25 % (0-10); Segmented Neutrophils 4 % (40-80)
[2024-05-07 11:14] LABS: Anisocytosis 2+; Blood Morphology Comment NOTED (NOT SEEN); Hypochromasia 1+; Microcytosis 1+; Platelet Estimate ADEQ; Rouleau SLIGHT
--- NOTE | 2024-05-07 14:18 | P.PN ---
Date of Service: 05/07/24 Subjective No acute events overnight C/O pain to LLE ROS 10 point ROS as noted above, otherwise negative Physical Exam General: Alert and oriented x3, NAD HEENT: Atraumatic, Normocephalic, PERRLA Neck: Supple, 2+ carotid pulse no bruit Respiratory: Clear to auscultation bilaterally, Normal air movement, on room air Cardiovascular: Normal pulses, sinus tachycardia, Normal S1 S2 Capillary refill: <2 Seconds Gastrointestinal: Normal bowel sounds, Soft and benign on palpation, nontender, Distended (obese) Musculoskeletal: Other (left lower extremity with AMARJIT bandage) Integumentary: Skin breakdown (left lower extremity) Neurological: Normal speech, Normal tone Vitals Reviewed Problem list Chronic non-healing wound to left lower extremity S/P I&D 05/05 History of Congenital neutropenia History of anemia History of ALLISON Plan Chronic non-healing wound to left lower extremity S/P I&D 05/05 S/P I&D 05/05 Completed Doxy and Levaquin 04/22 Unasyn Q8Hr, Pain control General surgery recommends further follow-up as an outpatient History of Congenital neutropenia History of anemia monitor in AM labs Sees Dr. Chanel outpatient transfuse PRN History of ALLISON Supprotive care CPAP at night DVT Ppx SCD to right leg, discuss lovenox with general surgery Full code LOS 2 days Discharge Plan: Home
[2024-05-07 23:44] VITALS: O2SAT 94
[2024-05-08 06:50] LABS: Absolute Eosinophils 0.3 K/uL (0-0.5); Absolute Lymphocytes (CBC) 1.2 K/uL (0.7-4.9); Absolute Monocytes 0.6 K/uL (0.1-1.3); Absolute Neutrophil 0.1 K/uL (1.8-8.0); Basophils % 0.9 % (0-1.3); Eosinophils % 12.5 % (0-4.4); Hematocrit 23.6 % (39.6-49.0); Hemoglobin 7.8 g/dL (13.6-17.9); Lymphocytes % 54.2 % (15.3-44.8); MCH 25.6 pg (27.0-35.0); MCV 77.8 fL (80-100); MPV 7.7 fL (7.6-11.3); Neutrophils % 4.4 % (41.7-73.7); Nucleated Red Blood Cells % 0.1 % (0-0); Platelets 414 thou/uL (152-406); RBC Red Blood Cell Count 3.03 M/uL (4.33-5.43); Red Cell Distribution Width 23.6 % (12.1-15.2)
[2024-05-08 07:10] LABS: Anion Gap 7.2 mEq/L (5.0-15.0); Magnesium 2.3 mg/dL (1.6-2.4); Phosphorus 4.6 mg/dL (2.5-4.9); Potassium 4.2 mEq/L (3.5-5.1)
--- NOTE | 2024-05-08 11:14 | P.DS ---
Admission Date: 05/04/24 Discharge Date: 05/08/24 Disposition: DC HOME/HOME HEALTH CARE Discharge Condition: GOOD Reason for Admission: chronic wound to left lower extremity Consultations: Dr. Solorio Procedures: LLE wound debridement Brief History of Present Illness: Abel Maria is a 33-year-old male with past medical history of congenital neutropenia, anemia, sleep apnea, chronic wound to left lower extremity who was sent to the ED by Dr. Solorio. Abel was recently discharged s/p I and D of left lower extremity and to continue antibiotic ending on 04/22/24 also contin uing with wound care with Dr. Solorio. Hospital Course: Problem List Chronic non-healing wound to left lower extremity History of Congenital neutropenia History of anemia History of ALLISON Patient was admitted to the hospital for a left calf wound with necrosis and underwent wide debridement of left calf wounds on 05/05. Superficial slough and necrosis 20 cm x 16 cm to fascia. General surgery cleared patient for discharge from their standpoint, patient will be discharged home with home health and follow-up with general surgery on an outpatient basis. Patient has complex social needs, currently living in a trailer and has difficulty with mobility. This was discussed at length with case management and there were no other options for dispo, no benefits for SNF, LTAC etc. Will need to go home with home health which has been set up. 1 week of antibiotics sent to [facility] Continue home medications as previously prescribed Please follow-up with Dr. Solorio in 1 to 2 weeks Please also follow-up with your primary care doctor Vital Signs/Physical Exam: Temp Pulse Resp BP Pulse Ox 98.2 F 65 9 L 147/82 H 96 05/08/24 08:00 05/08/24 08:00 05/08/24 08:00 05/08/24 08:00 05/08/24 08:25 General: Alert, In no apparent distress, Oriented x3 HEENT: Atraumatic, PERRLA Neck: Supple, JVD not distended Respiratory: Clear to auscultation bilaterally, Normal air movement Cardiovascular: Regular rate/rhythm, Normal S1 S2 Gastrointestinal: Normal bowel sounds Musculoskeletal: No tenderness Integumentary: Other (Large open wound ro LLE S/P debridement with healthy appearing tissue present in wound base) Neurological: Normal speech, Normal tone, Normal affect Lymphatics: No axilla or inguinal lymphadenopathy Laboratory Data at Discharge: WBC 2.30 thou/uL (4.3-10.9) L 05/08/24 06:31 Hgb 7.8 g/dL (13.6-17.9) L 05/08/24 06:31 Hct 23.6 % (39.6-49.0) L 05/08/24 06:31 Plt Count 414 thou/uL (152-406) H 05/08/24 06:31 Sodium 135 mEq/L (136-145) L 05/08/24 06:31 Potassium 4.2 mEq/L (3.5-5.1) 05/08/24 06:31 BUN 7 mg/dL (7-18) 05/08/24 06:31 Creatinine 0.71 mg/dL (0.70-1.30) 05/08/24 06:31 Glucose 143 mg/dL (74-106) H 05/08/24 06:31 Phosphorus 4.6 mg/dL (2.5-4.9) 05/08/24 06:31 Magnesium 2.3 mg/dL (1.6-2.4) 05/08/24 06:31 Total Bilirubin 0.8 mg/dL (0.2-1.0) 05/04/24 11:40 AST 19 U/L (15-37) 05/04/24 11:40 ALT 23 U/L (16-61) 05/04/24 11:40 Alkaline Phosphatase 51 U/L (45-117) 05/04/24 11:40 Lipase 11 U/L (13-75) L 05/04/24 11:40 Home Medications: Tramadol HCl [Ultram] 100 mg PO Q6HP PRN 04/07/24 Trazodone [Desyrel*] 100 mg PO BEDTIME 04/07/24 Collagenase [Santyl Ointment*] 1 appl TOP DAILY 14 Days #1 tube 04/14/24 Famotidine [Pepcid*] 20 mg PO DAILY 30 Days #30 tab 04/14/24 Ferrous Sulfate [Ferrous Sulfate*] 325 mg PO DAILY 30 Days #30 tab 04/14/24 Oxycodone HCl/Acetaminophen [Oxycodone-Acetaminophn 7.5-325] 1 tab PO Q6H PRN #15 tab 04/14/24 methocarbamoL [Robaxin*] 500 mg PO TID PRN #15 tab 04/14/24 Doxycycline Hyclate 100 mg PO BID 7 Days #14 cap 05/08/24 levoFLOXacin [Levofloxacin] 500 mg PO DAILY #7 tab 05/08/24 New Medications: Doxycycline Hyclate 100 mg PO BID 7 Days #14 cap levoFLOXacin [Levofloxacin] 500 mg PO DAILY #7 tab Physician Discharge Instructions: Patient was admitted to the hospital for a left calf wound with necrosis and underwent wide debridement of left calf wounds on 05/05. Superficial slough and necrosis 20 cm x 16 cm to fascia. General surgery cleared patient for discharge from their standpoint, patient will be discharged home with home health and follow-up with general surgery on an outpatient basis. Patient has complex social needs, currently living in a trailer and has difficulty with mobility. This was discussed at length with case management and there were no other options for dispo, no benefits for SNF, LTAC etc. Will need to go home with home health which has been set up. 1 week of antibiotics sent to [facility] Continue home medications as previously prescribed Please follow-up with Dr. Solorio in 1 to 2 weeks Please also follow-up with your primary care doctor Diet: AHA Activity: Fall precautions Followup: Clyde Solorio MD [ACTIVE - CAN ADMIT] - 1-2 Weeks NONE,NONE [Primary Care Provider] - Time spent managing pt's care (in minutes): 35
[2024-05-08 12:49] VITALS: BP 158/80; TEMP 97.9
== END 2024-05-08 13:43 | disposition home health service (06) | DRG 264 ==
LOC: ER 10:54 → 2ND 14:23
PROVIDERS: ADMIT Internal Medicine; ATTEND Internal Medicine
PROC: 0KBT0ZZ Excision of Left Lower Leg Muscle, Open Approach (ICD-10-PCS; principal; 2024-05-04)
PROC: 5A09457 Assistance with Respiratory Ventilation, 24-96 Consecutive Hours, Continuous Positive Airway Pressure (ICD-10-PCS; 2024-05-04)
DX: I96 Gangrene, not elsewhere classified (principal); L03.126 Acute lymphangitis of left lower limb; Z68.41 Body mass index [BMI] 40.0-44.9, adult; E66.9 Obesity, unspecified; D70.0 Congenital agranulocytosis; G47.33 Obstructive sleep apnea (adult) (pediatric); D64.9 Anemia, unspecified; Z79.899 Other long term (current) drug therapy
CPT/HCPCS: 36415; 80048; 80053; 80307; 81001; 83690; 83735; 84100; 85014; 85018; 85025; 88304; 94660; 99285; J0295; J2001; J2250; J2405; J2543; J2704; J3010; J7030

== ENCOUNTER 2024-06-20 16:26 | Inpatient (IN) | payer OTHER ==
[2024-06-20 20:07] LABS: Specific Gravity 1.028 (1.005-1.030); Sqamous Epithelial <5 /HPF (None Seen); Urine Bacteria None Seen /HPF (<20); Urine Bilirubin NEGATIVE (Negative); Urine Blood 2+ (Negative); Urine Clarity Extremely Turbid (Clear); Urine Color Yellow (Yellow); Urine Culture Reflex Order NOT NEEDED; Urine Glucose NEGATIVE (Negative); Urine Ketones NEGATIVE (Negative); Urine Microscopic Reflex YN ORDER UMIC; Urine Mucus Slight /HPF (None Seen); Urine Nitrite NEGATIVE (Negative); Urine Protein 1+ (Negative); Urine Urobilinogen Normal (Normal); Urine Yeast (Budding) Trace /HPF (None Seen); Urine pH 5.5 (5.0-7.0)
[2024-06-21] MEDS ORDERED: MORPHINE 4 MG/ML SYR ONE (04:09)
[2024-06-21] MEDS ORDERED: ONDANSETRON 4 MG/2 ML VIAL ONE (04:09)
[2024-06-21] MEDS ORDERED: ACETAMINOPHEN 500 MG TAB ONE (04:09)
[2024-06-21] MEDS ORDERED: PIPERACIL/TAZO 3.375 GM VIAL IV ONE (04:10)
[2024-06-21] MEDS ORDERED: MORPHINE 2 MG/ML SYR ONE (04:10)
[2024-06-21] MEDS ORDERED: NA CHLORIDE 0.9% 100 ML ONE (04:10)
[2024-06-21] MEDS ORDERED: NA CHLORIDE 0.9% 1,000 ML ONE ×2 (04:11→06:24)
[2024-06-21 04:57] LABS: Absolute Basophils 0.1 K/uL (0-0.5); Absolute Eosinophils 0.2 K/uL (0-0.5); Absolute Lymphocytes (CBC) 1.6 K/uL (0.7-4.9); Absolute Monocytes 1.2 K/uL (0.1-1.3); Basophils % 1.8 % (0-1.3); Eosinophils % 5.9 % (0-4.4); Hemoglobin 8.3 g/dL (13.6-17.9); Lymphocytes % 52.9 % (15.3-44.8); MCH 24.6 pg (27.0-35.0); MCV 77.1 fL (80-100); MPV 8.6 fL (7.6-11.3); Monocytes % 38.2 % (3.3-12.3); Neutrophils % 1.2 % (41.7-73.7); Nucleated Red Blood Cells % 0.4 % (0-0); Platelets 295 thou/uL (152-406); RBC Red Blood Cell Count 3.38 M/uL (4.33-5.43); Red Cell Distribution Width 19.9 % (12.1-15.2)
[2024-06-21 05:01] LABS: Albumin 1.8 g/dL (3.4-5.0); Albumin/Globulin Ratio 0.3 (1.1-1.8); Anion Gap 11.1 mEq/L (5.0-15.0); Bilirubin Total 0.4 mg/dL (0.2-1.0); Globulin 6.3 g/dL (2.3-3.5); Potassium 4.1 mEq/L (3.5-5.1); Protein, Total 8.1 g/dL (6.4-8.2)
[2024-06-21 05:08] LABS: PT Prothrombin Time 16.6 SECONDS (9.4-12.5); PTT, Activated Partial Thromb 29.5 SECONDS (24.3-36.9); Protime INR 1.5
[2024-06-21] MEDS ORDERED: VANCOMYCIN 1 GM/VIAL ONE (05:50)
[2024-06-21] MEDS ORDERED: NA CHLORIDE 0.9% 250 ML ONE (05:51)
--- NOTE | 2024-06-21 06:15 | ER ---
Nurse's Notes [facility] Name: Abel Maria Age: 33 yrs Sex: Male : 1990 Arrival Date: 06/20/2024 Time: 16:26 Bed 5 Private MD: Diagnosis: Left lower extremity chronic wound infection, left lower extremity gangrene Presentation: 06/20 17:11 Chief complaint: Patient states: Here to have his wound checked on his left leg. Pt cm10 states that he has not had the dressing change since 06/09. Pt reports also having wounds to his lower abdomen. Coronavirus screen: Client denies travel out of the [place] in the last 14 days. At this time, the client does not indicate any symptoms associated with coronavirus-19. Ebola Screen: Patient denies travel to an Ebola-affected area in the 21 days before illness onset. No symptoms or risks identified at this time. Initial Sepsis Screen: Does the patient meet any 2 criteria? HR > 90 bpm. Does the patient have a suspected source of infection? No. Patient's initial sepsis screen is negative. Risk Assessment: Do you want to hurt yourself or someone else? Patient reports no desire to harm self or others. Onset of symptoms was June 20, 2024. 17:11 Method Of Arrival: EMS: [facility] cm10 17:11 Acuity: RICH 3 cm10 Triage Assessment: 17:13 General: Appears in no apparent distress. comfortable, Behavior is calm, cooperative. cm10 Neuro: No deficits noted. Level of Consciousness is awake, alert, obeys commands, Oriented to person, place, time, situation, Appropriate for age. Respiratory: No deficits noted. Airway is patent Respiratory effort is even, unlabored, Respiratory pattern is regular, symmetrical. Historical: - Allergies: 17:12 Bactrim; cm10 - PMHx: 17:12 Congenital neutropenia; Sleep Apnea; Chronic leg wound (leg); cm10 - PSHx: 17:12 eye; rectum; leg; cm10 - Immunization history:: Adult Immunizations up to date. - Infectious Disease History:: Denies. - Social history:: Smoking status: Patient denies any tobacco usage or history of. - Family history:: not pertinent. Screenin/13 04:00 [facility] ED Fall Risk Assessment (Adult) History of falling in the last 3 months, mt4 including since admission Yes- single mechanical fall (1 pt) Confusion or Disorientation No (0 pts) Intoxicated or Sedated No (0 pts) Impaired Gait Yes (1 pt) Mobility Assist Device Used Yes (1 pt) Altered Elimination No (0 pt) Score/Fall Risk Level 3 or more points = High Risk. Abuse screen: Denies injuries from another. Nutritional screening: No deficits noted. Tuberculosis screening: No symptoms or risk factors identified. Assessment: 06/20 23:49 General: Appears in no apparent distress. Behavior is calm, cooperative. Pain: [facility] Complains of pain in to wounds on foot and abdomen. Neuro: No deficits noted. Cardiovascular: No deficits noted. : No deficits noted. No signs and/or symptoms were reported regarding the genitourinary system. EENT: No deficits noted. No signs and/or symptoms were reported regarding the EENT system. Derm: Reports pain wounds to foot and abdomen. 06/21 02:05 Reassessment: No changes from previously documented assessment. [facility] 04:00 General: Appears in no apparent distress. distressed, comfortable, Behavior is calm, mt4 cooperative, appropriate for age. Pain: Complains of pain in left leg Pain currently is 8 out of 10 on a pain scale. Quality of pain is described as burning, aching, sharp. Neuro: Level of Consciousness is awake, alert, obeys commands, Oriented to person, place, time, situation. Cardiovascular: Capillary refill < 3 seconds. Respiratory: Airway is patent. GI: Abdomen is round obese, Abd is soft Abd is non tender. : Denies burning with urination. Musculoskeletal: Range of motion: limited in left ankle Reports weakness in right leg and left leg. Vital Signs: 06/20 17:11 BP 112 / 60; Pulse 109; Resp 18; Temp 100.1(O); Pulse Ox 95% on R/A; Weight 113.4 kg; cm10 Height 5 ft. 2 in. ; Pain 10/10; 23:50 BP 118 / 68; Pulse 97; Resp 16; Pulse Ox 100% ; 12 06/21 04:30 BP 128 / 68; Pulse 96; Resp 20; Pulse Ox 98% on R/A; Pain 8/10; mt4 06:00 BP 123 / 51; Pulse 89; Resp 16; Temp 98.7; Pulse Ox 98% on R/A; mt4 08:10 BP 114 / 77; Pulse 70; Resp 17; Pulse Ox 99% ; dd2 06/20 17:11 Body Mass Index 45.73 (113.40 kg, 157.48 cm) cm10 06/20 17:11 Pain Scale: Adult cm10 06/21 04:30 Pain Scale: Adult mt4 [place] Coma Score: 04:00 Eye Response: spontaneous(4). Motor Response: obeys commands(6). Verbal Response: mt4 oriented(5). Total: 15. 04:07 Eye Response: spontaneous(4). Motor Response: obeys commands(6). Verbal Response: sp4 oriented(5). Total: 15. ED Course: 06/20 16:27 Patient arrived in ED. im 16:50 Castillo Gipson PA is PHCP. cp 16:50 Yared Banks MD is Attending Physician. cp 17:12 Triage completed. cm10 17:13 Arm band placed on Patient placed in waiting room. [facility] 19:26 Urinalysis w/ reflexes Sent. kmf 19:27 Urine collected: clean catch specimen, clear. kmf 19:27 Missed attempt(s): 22 gauge in left forearm. kmf 20:18 PHCP role handed off by Castillo Gipson PA sb4 20:18 Jessica Torres PA-C is PHCP. 4 23:51 Patient has correct armband on for positive identification. Bed in low position. Call jm12 light in reach. Side rails up X2. 06/21 04:00 No apparent distress. Resting quietly. [facility] 04:00 Fall risk band placed. Bed in low position. Call light in reach. Side rails up X 1. oh4 Door closed. Noise minimized. Lights dimmed. Patient is placed in psych hold. Assisted with urinal. 04:00 Assisted provider with central line placement. Set up central line tray. Line placed by oh4 Federico Boles MD Blood was collected. Before procedure, did Practitioner(s) obtain informed consent? Yes. Patient \T\ family education about procedure, CLABSI prevention and S/S of infection? Time-out/Briefing performed prior to start of procedure? Was handwashing/sanitizing done immediately prior to procedure? Yes. Was patient positioned to in a way to prevent air embolism? Yes. Was procedure site sterilized? Yes, with chlorhexidine. Was the site allowed to dry?. Inserted Right triple lumen IJ. Patient maintains SpO2 saturation greater than 95% on room air. Wound care: located on left leg was cleaned with dressed with 4X4s, ABD pads, gauze and wrapped in [place] wrap, Patient tolerated well. 04:02 Attending Physician role handed off by Yared Banks MD sp4 04:02 Federico Boles MD is Attending Physician. sp4 04:04 Ryan Fung RN is Primary Nurse. mt4 04:26 Chest Single View XRAY In Process Unspecified. EDMS 06:14 Apollo Ribeiro is Hospitalizing Provider. sp4 09:38 Patient admitted, IV remains in place. mb9 Administered Medications: 04:47 Drug: Acetaminophen PO 1000 mg PO once Route: PO; mt4 05:48 Follow up: Response: No adverse reaction mt4 04:57 Drug: morphine IVP or IV 6 mg IVP once over 4 mins Route: IVP; Infused Over: 4 mins; mt4 Site: right jugular; 04:57 Drug: Ondansetron IVP 4 mg IVP once; over 2 minutes Route: IVP; Site: right jugular; mt4 04:57 Drug: Piperacillin-Tazobactam IVPB 3.375 grams IVPB once over 60 mins; (mix in NS 100 mt4 mL) Route: IVPB; Infused Over: 60 mins; Site: right jugular; 05:46 Follow up: Response: No adverse reaction; IV Status: Completed infusion mt4 04:58 Drug: NS 0.9% IV 1000 ml IV at 999 ml/hr Per protocol Route: IV; Rate: 999 ml/hr; Site: mt4 right jugular; 06:18 Drug: vancoMYCIN IVPB 1 grams IVPB once over 2 hrs Route: IVPB; Infused Over: 2 hrs; mt4 Site: right jugular; 08:20 Follow up: Response: No adverse reaction; IV Status: Completed infusion; IV Intake: dd2 250ml 06:26 Drug: NS 0.9% IV 1000 ml IV at 125 ml/hr continuous Route: IV; Rate: 125 ml/hr; Site: mt4 right jugular; Intake: 08:20 IV: 250ml; Total: 250ml. dd2 Outcome: 06:14 Decision to Hospitalize by Provider. sp4 09:38 Admitted to Med/surg accompanied by nai, via keith cooper 09:38 Condition: stable 09:38 Instructed on the need for admit, 09:38 Patient left the ED. mb9 Signatures: Dispatcher [employer] EDMS Castillo Gipson PA PA cp Brown, Sophia, LOLA PARaquel West, RN RN mb9 Federico Boles MD MD sp4 Norah Ferrer Clarissa RN RN cm10 Viky Mcmillan [facility] Ryan Fung RN RN mt4 Nilsa Tomlinson RN RN jm12 NILDA LAYTON RN RN dd2
--- NOTE | 2024-06-21 06:15 | EDPHYS ---
Physician Documentation [facility] Name: Abel Maria Age: 33 yrs Sex: Male : 1990 Arrival Date: 06/20/2024 Time: 16:26 Bed 5 Private MD: ED Physician Federico Boles HPI: 06/20 17:20 This 33 yrs old Male presents to ER via EMS with complaints of Wound Check. cp 06/21 02:59 patient reports chronic left lower leg wound, states it has gotten worse over the past sb4 week. also reports low grade fever. Historical: - Allergies: 06/20 17:12 Bactrim; cm10 - PMHx: 17:12 Congenital neutropenia; Sleep Apnea; Chronic leg wound (leg); cm10 - PSHx: 17:12 eye; rectum; leg; cm10 - Immunization history:: Adult Immunizations up to date. - Infectious Disease History:: Denies. - Social history:: Smoking status: Patient denies any tobacco usage or history of. - Family history:: not pertinent. ROS: 06/21 04:07 Constitutional: Negative for fever, chills, and weight loss, positive for left lower sp4 leg pain left lower chronic wound infection. All other systems are negative, Exam: 04:07 Constitutional: This is a well developed, well nourished patient who is awake, alert, sp4 and in no acute distress. Head/Face: Normocephalic, atraumatic. Eyes: Pupils equal round and reactive to light, extra-ocular motions intact. Lids and lashes normal. Conjunctiva and sclera are not injected. Cornea within normal limits. Periorbital areas with no swelling, redness, or edema. ENT: Nares patent. No nasal discharge, no septal abnormalities noted. Tympanic membranes are normal and external auditory canals are clear. Oropharynx with no redness, swelling, or masses, exudates, or evidence of obstruction, uvula midline. Mucous membranes moist. Neck: Trachea midline, no thyromegaly or masses palpated, and no cervical lymphadenopathy. Supple, full range of motion without nuchal rigidity, or vertebral point tenderness. Chest/axilla: Normal chest wall appearance and motion. Nontender with no deformity. No lesions are appreciated. Cardiovascular: Regular rate and rhythm with a normal S1 and S2. No gallops, murmurs, or rubs. Normal PMI, no JVD. No pulse deficits. Respiratory: Lungs have equal breath sounds bilaterally, clear to auscultation and percussion. No rales, rhonchi or wheezes noted. No increased work of breathing, no retractions or nasal flaring. Abdomen/GI: Soft, with normal bowel sounds. No distension or tympany. No guarding or rebound. No evidence of tenderness throughout. Back: No spinal tenderness. No costovertebral tenderness. Skin: Warm, dry with normal turgor. Normal color with no rashes, no lesions, and no evidence of cellulitis. MS/ Extremity: Pulses equal, no cyanosis. Neurovascular intact. Moderate to severe gangrenous left calf wound with dressing essentially stuck to the wound with necrotic smell. Neuro: Awake and alert, GCS 15, oriented to person, place, time, and situation. Cranial nerves II-XII grossly intact. Motor strength 5/5 in all extremities. Sensory grossly intact. Psych: Awake, alert, with orientation to person, place and time. Behavior, mood, and affect are within normal limits Vital Signs: 06/20 17:11 BP 112 / 60; Pulse 109; Resp 18; Temp 100.1(O); Pulse Ox 95% on R/A; Weight 113.4 kg; cm10 Height 5 ft. 2 in. ; Pain 10/10; 23:50 BP 118 / 68; Pulse 97; Resp 16; Pulse Ox 100% ; jm12 06/21 04:30 BP 128 / 68; Pulse 96; Resp 20; Pulse Ox 98% on R/A; Pain 8/10; mt4 06:00 BP 123 / 51; Pulse 89; Resp 16; Temp 98.7; Pulse Ox 98% on R/A; mt4 08:10 BP 114 / 77; Pulse 70; Resp 17; Pulse Ox 99% ; dd2 06/20 17:11 Body Mass Index 45.73 (113.40 kg, 157.48 cm) cm10 06/20 17:11 Pain Scale: Adult cm10 06/21 04:30 Pain Scale: Adult mt4 [place] Coma Score: 04:00 Eye Response: spontaneous(4). Motor Response: obeys commands(6). Verbal Response: mt4 oriented(5). Total: 15. 04:07 Eye Response: spontaneous(4). Motor Response: obeys commands(6). Verbal Response: sp4 oriented(5). Total: 15. Procedures: 04:06 Central Line: the site was prepped with Betadine, in sterile fashion, a triple lumen sp4 catheter was inserted, in the right internal jugular vein, in 1 attempts. placement was verified, by CXR, by blood return, Ultrasound-guided the right central venous line, the site was dressed with 4X4s, Tegaderm, using sterile technique, the patient tolerated the procedure, well, No complications. MDM: 06/20 17:16 Patient medically screened. cp 06/21 04:08 Differential diagnosis: cellulitis, wound infection. Data reviewed: vital signs, nurses sp4 notes, lab test result(s), radiologic studies. ED course: Central line was just now placed at 0408 for lab collection.. 06:52 ED course: EXAM DESCRIPTION: Chest Single View CLINICAL HISTORY: central line placement sp4 COMPARISON: None TECHNIQUE: Single AP view of the chest. FINDINGS: Right IJ catheter tip likely in the SVC. Lung volumes adequate. Cardiac silhouette is normal in size. No pneumothorax. No large pleural effusion. No focal consolidation. No acute bony finding. IMPRESSION: Right IJ catheter tip likely in the SVC. No pneumothorax. . 08 17:17 Order name: Blood Culture Adult (2) cp 06/20 17:17 Order name: CBC with Diff; Complete Time: 13:01 cp 06/20 17:17 Order name: CMP; Complete Time: 05:43 cp 06/20 17:17 Order name: Lactate w/ 2H reflex if indic.; Complete Time: 05:43 cp 06/20 17:17 Order name: Protime (+inr); Complete Time: 05:43 cp 06/20 17:17 Order name: Ptt, Activated; Complete Time: 05:43 cp 06/20 17:17 Order name: Urinalysis w/ reflexes; Complete Time: 20:19 cp 06/21 08:47 Order name: Manual Differential; Complete Time: 13:01 EDMS 06/21 04:03 Order name: Chest Single View XRAY; Complete Time: 13:01 sp4 06/20 17:17 Order name: Accucheck; Complete Time: 08:13 cp 08/12 17:17 Order name: Cardiac monitoring; Complete Time: 23:48 cp 06/20 17:17 Order name: EKG - Nurse/Tech; Complete Time: 08:09 cp 06/20 17:17 Order name: IV Saline Lock - Large Bore; Complete Time: 04:59 cp 06/20 17:17 Order name: Labs collected and sent; Complete Time: 23:48 cp 06/20 17:17 Order name: O2 Per Protocol; Complete Time: 23:48 cp 06/20 17:17 Order name: O2 Sat Monitoring; Complete Time: 23:48 cp 06/20 17:17 Order name: Vital Signs; Complete Time: 23:48 cp 06/21 04:03 Order name: Wound Care; Complete Time: 04:57 sp4 Administered Medications: 04:47 Drug: Acetaminophen PO 1000 mg PO once Route: PO; mt4 05:48 Follow up: Response: No adverse reaction mt4 04:57 Drug: morphine IVP or IV 6 mg IVP once over 4 mins Route: IVP; Infused Over: 4 mins; mt4 Site: right jugular; 04:57 Drug: Ondansetron IVP 4 mg IVP once; over 2 minutes Route: IVP; Site: right jugular; mt4 04:57 Drug: Piperacillin-Tazobactam IVPB 3.375 grams IVPB once over 60 mins; (mix in NS 100 mt4 mL) Route: IVPB; Infused Over: 60 mins; Site: right jugular; 05:46 Follow up: Response: No adverse reaction; IV Status: Completed infusion mt4 04:58 Drug: NS 0.9% IV 1000 ml IV at 999 ml/hr Per protocol Route: IV; Rate: 999 ml/hr; Site: mt4 right jugular; 06:18 Drug: vancoMYCIN IVPB 1 grams IVPB once over 2 hrs Route: IVPB; Infused Over: 2 hrs; mt4 Site: right jugular; 08:20 Follow up: Response: No adverse reaction; IV Status: Completed infusion; IV Intake: dd2 250ml 06:26 Drug: NS 0.9% IV 1000 ml IV at 125 ml/hr continuous Route: IV; Rate: 125 ml/hr; Site: mt4 right jugular; Disposition: 06:13 Co-signature as Attending Physician, Federico Boles MD I agree with the assessment sp4 and plan of care. I reviewed the patient's care provided by Advanced Practice Provider \T\ agree w/ the diagnosis \T\ care plan. I personally saw the pt \T\ performed a substantive portion of the visit, incldng all aspects of the (History/Exam/Medical Decision Making). 13:02 Chart complete. sb4 Disposition Summary: 06/21/24 06:14 Hospitalization Ordered Notes: Hospitalization Status: Inpatient Admission sp4 Provider: Apollo Ribeior spLeonidas Condition: Stable sp4 Problem: new sp4 Symptoms: have improved sp4 Bed/Room Type: Standard sp4 Location: Telemetry/MedSurg (Inpatient)(06/21/24 08:12) bd Room Assignment: 215(06/21/24 08:12) bd Diagnosis - Left lower extremity chronic wound infection, left lower extremity gangrene sp4 Forms: - Medication Reconciliation Form sp4 - SBAR form sp4 - Leadership Thank You Letter sp4 Signatures: Dispatcher [employer] EDMS Melissa Bartholomew bd Castillo Gipson PA PA cp Brown, Sophia, PA-C PAArmen sb4 Federico Boles MD MD sp4 Greer Frederick, SONG RN cm10 Ryan Fung RN RN mt4 NILDA LAYTON RN dd2 Corrections: (The following items were deleted from the chart) 06/20 17:18 17:18 BLOOD CULTURE*+BA.LAB.BRZ ordered. EDMS EDMS 17:18 17:18 CBC+H.LAB.BRZ ordered. EDMS EDMS 17:18 17:18 COMPREHENSIVE METABOLIC PANEL+C.LAB.BRZ ordered. EDMS EDMS 17:18 17:18 LACTATE+C.LAB.BRZ ordered. EDMS EDMS 17:18 17:18 PROTIME (+INR)+COAG.LAB.BRZ ordered. EDMS EDMS 17:18 17:18 PTT, ACTIVATED+COAG.LAB.BRZ ordered. EDMS EDMS 17:18 17:18 Urinalysis+U.LAB.BRZ ordered. EDWA EDWA 06/21 07:26 06:14 Telemetry/MedSurg (Inpatient) sp4 bd 07:26 06:14 sp4 bd 08:12 07:26 [facility] ER HOLD bd bd 08:12 07:26 ERHOLD- bd bd
[2024-06-21 08:47] LABS: Anisocytosis SLIGHT; Blood Morphology Comment NOTED (NOT SEEN); Differential Total Cells Count 100; Eosinophils 10 % (0-3); Lymphocytes 60 % (15-42); Microcytosis SLIGHT; Monocytes 26 % (0-10); Platelet Estimate ADEQ; Segmented Neutrophils 2 % (40-80)
[2024-06-21] MEDS: ENOXAPARIN 40 MG/0.4 ML SQ SCH (10:01)
[2024-06-21] MEDS: CEFEPIME 2 GM in NA CHLORIDE 0.9% 100 ML IV SCH (10:01)
[2024-06-21] MEDS: TBO-FILGRASTIM 480 MCG/0.8 ML SYR SQ SCH (10:05)
[2024-06-21] MEDS: VANCOMYCIN 1 GM in NA CHLORIDE 0.9% 250 ML IVPB SCH (10:11)
--- NOTE | 2024-06-21 10:15 | RAD REPORT ---
EXAM DESCRIPTION: RAD - Chest Single View - 06/21/2024 4:25 am CLINICAL HISTORY: Central line placement COMPARISON: None TECHNIQUE: Single AP view of the chest. FINDINGS: Right IJ catheter tip likely in the SVC. Lung volumes adequate. Cardiac silhouette is normal in size. No pneumothorax. No large pleural effusion. No focal consolidation. No acute bony finding. IMPRESSION: Right IJ catheter tip likely in the SVC. No pneumothorax. Electronically signed by: Siva Gil MD 06/21/2024 05:59 AM CDT Z9 Due to temporary technical issues with the PACS/Fluency reporting system, reports are being signed by the in house radiologist without review as a courtesy to ensure prompt reporting. The interpreting r adiologist is fully responsible for the content of the report.
--- NOTE | 2024-06-21 10:30 | P.HP ---
Certification for Inpatient Patient admitted to: Inpatient With expected LOS: >2 Midnights Patient will require the following post-hospital care: None Practitioner: I am a practitioner with admitting privileges, knowledge of patient current condition, hospital course, and medical plan of care. Services: Services provided to patient in accordance with Admission requirements found in Title 42 Section 412.3 of the Code of Federal Regulations Patient History Date of Service: 06/21/24 Reason for admission: Left lower extremity cellulitis, severe neutropenia History of Present Illness: 33-year-old male with history of congenital neutropenia, anemia, sleep apnea, left lower extremity wound presents emerged part with chief complaint of worsening leg wound. He reports he was seen at [facility] and discharged on 05/25 with home health, he was subsequently discharged from home health on 06/09. Since then he has been unable to change the dressing to his left lower extremity and began to have increasing pain, foul odor and running low-grade fever. He came to the emergency department for evaluation. Patient was evaluated in the emergency department, temperature was 100.1, his labs were significant for a white blood cell count of 3.0 hemoglobin 8.3 absolute neutrophils are 0.0 neutrophils percent 1.2. Patient was started on antibiotics, case was discussed with patient's general surgeon Dr. Solorio who will see patient in the hospital. Allergies No Known Allergies Allergy (Unverified 10/26/23 16:35) Home Medications: Tramadol HCl [Ultram] 100 mg PO Q6HP PRN 04/07/24 Trazodone [Desyrel*] 100 mg PO BEDTIME 04/07/24 Collagenase [Santyl Ointment*] 1 appl TOP DAILY 14 Days #1 tube 04/14/24 Famotidine [Pepcid*] 20 mg PO DAILY 30 Days #30 tab 04/14/24 Ferrous Sulfate [Ferrous Sulfate*] 325 mg PO DAILY 30 Days #30 tab 04/14/24 Oxycodone HCl/Acetaminophen [Oxycodone-Acetaminophn 7.5-325] 1 tab PO Q6H PRN #15 tab 04/14/24 methocarbamoL [Robaxin*] 500 mg PO TID PRN #15 tab 04/14/24 Doxycycline Hyclate 100 mg PO BID 7 Days #14 cap 05/08/24 Amox/Clavulanate [Augmentin 875-125 Tab] 875 mg PO BID #30 tab 06/03/24 predniSONE [Deltasone] 20 mg PO DAILY #5 tab 06/03/24 - Past Medical/Surgical History Diabetic: No -: Neutropenia -: Anemia -: Non healing wounds on the abdominal wall and the LLE -: Debriedement of the wounds on the left leg -: 03/29/24 LEXISCAN INJECTED. CARDIOLITE INJECTED no ischemia Psychosocial/ Personal History: Pt lives in a trailer now moved to the [place] area in his trailer - Family History Mother Notes: Severe chronic acute Congenital neutropenia - Social History Alcohol use: No CD- Drugs: No Caffeine use: No Place of Residence: Home Review of Systems 10-point ROS is otherwise unremarkable Integumentary: Other (Large left lower extremity wound present), As per HPI Physical Examination - Vital Signs Temperature: 98.7 F Blood Pressure: 114/77 Pulse: 70 Respirations: 17 - Physical Exam General: Alert, In no apparent distress, Oriented x3 HEENT: Atraumatic, PERRLA, EOMI Neck: Supple, 2+ carotid pulse no bruit, No LAD, Without JVD or thyroid abnormality Respiratory: Clear to auscultation bilaterally, Normal air movement Cardiovascular: Regular rate/rhythm, Normal S1 S2 Gastrointestinal: Normal bowel sounds, No tenderness Musculoskeletal: No tenderness Integumentary: Other (Large left lower extremity wound present with a foul odor, fibrinous tissue overlying wound, very erythematous) Neurological: Normal speech, Normal strength at 5/5 x4 extr, Normal tone - Studies Laboratory Data (last 24 hrs) 06/21/24 06/21/24 06/21/24 04:00 04:00 04:00 WBC 3.00 L Hgb 8.3 L Hct 26.0 L Plt Count 295 PT 16.6 H INR 1.50 APTT 29.5 Sodium 133 L Potassium 4.1 BUN 21 H Creatinine 1.19 Glucose 99 Total Bilirubin 0.4 AST 29 ALT 24 Alkaline Phosphatase 49 Assessment and Plan - Plan Assessment: Cellulitis/infection of left lower extremity wound Severe congenital neutropenia Obstructive sleep apnea Plan: Cellulitis/infection of left lower extremity wound General Surgery consult-Dr. Solorio Continue antibioticsvancomycin/cefepime Await results from blood cultures Severe congenital neutropenia Continue Neupogen Absolute neutrophil count 0.0 Obstructive sleep apnea CPAP at night DVT PPX: Lovenox Code status: Full Discharge Plan: Home Plan to discharge in: Greater than 2 days - Advance Directives Does patient have a Living Will: No Does patient have a Durable POA for Healthcare: No - Code Status/Comfort Care Code Status Assessed: Yes (Foot) Time Spent Managing Pts Care (In Minutes): 35
[2024-06-21] MEDS: MORPHINE 2 MG/ML SYR IV PRN (10:36)
[2024-06-21 12:38] VITALS: BMI 45.7
--- NOTE | 2024-06-21 12:57 | CON ---
History Of Present Illness: This is a 33-year-old male with significant past medical history of [place] enital neutropenia, being followed by [facility], anemia, sleep apnea, and left lower extremity ulc eration. Patient coming in with the worsening left leg pain and groin discomfort. Even recently, ad mitted to [facility] with Home Health. Patient was discharged from there on June 09. Currently, being on IV antibiotics with the vancomycin and cefepime, pending culture results. Past Medical History: As per HPI. Social History: Nonsmoker. Nondrinker. Family History: Noncontributory. Medications: Vancomycin. Cefepime. See MARs for other medications. Allergies: NO KNOWN DRUG ALLERGIES. Review of Systems: 10-point review was performed. Physical Examination: General: This is a 33-year-old male, not in any acute cardiopulmonary distress. Vital Signs: Temperature 98, pulse 70, respirations 17, blood pressure 114/77. HEENT: Unremarkable. Neck: Supple. Lungs: Clear to auscultation. Heart: S1, S2. Regular. Abdomen: Soft, nontender. Bowel sounds present. Extremities: Left leg ulceration noted. Right groin ulceration noted. Laboratory Data: Shows WBC 3, hemoglobin 8.3, platelets are 295, with the neutrophil percentage of 1 .2, and absolute neutrophils are 0%, segmented neutrophils 2. Patient was given Granix 480 mcg subcu earlier today. Assessment And Plan: 33-year-old male with the significant ulceration to the left leg and new ulcera tion to the right groin area with the congenital neutropenia. Recommend to continue vancomycin and c efepime. Consider applying Medihoney with alginate to the left leg and Xeroform to the right groin a popeye and foam dressing. Keep leg elevated, when possible. Consider getting hematology consult for co ngenital neutropenia. We will follow patient as needed. Consider long-term acute care. Thank you, Dr. Ribeiro, for consult. KIRBY/SRINATH Voice ID: [id number] Report ID: [id number]
[2024-06-21] MEDS: VANCOMYCIN 1.5 GM in NA CHLORIDE 0.9% 500 ML IVPB SCH (20:04)
[2024-06-22 05:12] LABS: Anion Gap 10.4 mEq/L (5.0-15.0); Potassium 4.4 mEq/L (3.5-5.1)
[2024-06-22 05:21] LABS: Absolute Basophils 0.1 K/uL (0-0.5); Absolute Eosinophils 0.3 K/uL (0-0.5); Absolute Lymphocytes (CBC) 1.5 K/uL (0.7-4.9); Absolute Monocytes 1.1 K/uL (0.1-1.3); Absolute Neutrophil 0.1 K/uL (1.8-8.0); Basophils % 2.6 % (0-1.3); Eosinophils % 10.9 % (0-4.4); Hematocrit 21.6 % (39.6-49.0); Lymphocytes % 48.2 % (15.3-44.8); MCH 24.9 pg (27.0-35.0); MCHC 32.5 g/dL (32.0-36.0); MCV 76.8 fL (80-100); MPV 8.6 fL (7.6-11.3); Monocytes % 36.3 % (3.3-12.3); Nucleated Red Blood Cells % 0.3 % (0-0); Platelets 280 thou/uL (152-406); RBC Red Blood Cell Count 2.81 M/uL (4.33-5.43); Red Cell Distribution Width 19.7 % (12.1-15.2)
[2024-06-22] MEDS: Ringers Lactate 1,000 ML IV ONE (10:22)
[2024-06-22] MEDS ORDERED: FENTANYL CITR 100 MCG/2 ML ONE (11:14)
[2024-06-22] MEDS ORDERED: propofoL 200 MG/20 ML VIAL IV ONE (11:14)
[2024-06-22] MEDS ORDERED: ONDANSETRON 4 MG/2 ML VIAL ONE (11:14)
[2024-06-22] MEDS ORDERED: MIDAZOLAM HCL 2 MG/2 ML INJ ONE (11:14)
[2024-06-22] MEDS ORDERED: LIDOCAINE 2% MPF 5 ML VIAL ONE (11:14)
[2024-06-22] MEDS: LIDOCAINE HCL/EPINEPHRINE 20 ML MDV ONE (11:20)
[2024-06-22] MEDS: SUGAMMADEX SODIUM 200 MG/2 ML VIAL IV ONE (11:46)
[2024-06-22] MEDS ORDERED: ROCURONIUM 50 MG/5 ML VIAL IV ONE (11:50)
--- NOTE | 2024-06-22 11:54 | PN ---
Subjective: The patient is lying in bed. No new acute event. Going to get debridement done today. Objective: Vital Signs: Reviewed. Lungs: Basal crackles. Heart: S1, S2. Regular. Abdomen: Soft, nontender. Bowel sounds present. Extremity: Trace edema. Wound noted, right groin and penile ulceration. Laboratory Data: Shows WBC 3.1, hemoglobin 7, platelets are 280. Chemistry shows BUN of 13, creatin ine 0.9. Blood cultures are negative for 24 hours. Assessment And Plan: Leukopenia with neutropenia. Anemia of chronic disease with sudden decrease in hemoglobin. Consider hematology evaluation. Check for bleeding sources of GI and urine. Repeat ur inalysis. Apply petroleum gel and Xeroform to the groin and penile area, left lower extremity, recom mend to apply Medihoney with alginate. Keep leg elevated when possible. Continue supportive care an d antibiotic. We will follow the patient as needed. NF/MODL Voice ID: [id number] Report ID: [id number]
[2024-06-22] MEDS ORDERED: dexAMETHasone 10 MG/ML VIAL ONE (12:17)
--- NOTE | 2024-06-22 12:42 | P.OP ---
Preoperative diagnosis: LEFT Calf Chronic Wound Postoperative diagnosis: LEFT Calf Chronic Wound Primary procedure: Excisional Debridement of LEFT Calf Chronic Wound Anesthesia: GETA Estimated blood loss: <5cc Specimen: Debridement Tissue Findings: 15 x 14cm x 0.4cm to fascia Complications: None Transferred to: Recovery Room Condition: Good
[2024-06-22] MEDS: HYDROMORPHONE HCL 1 MG/ML INJ ONE (13:10)
--- NOTE | 2024-06-22 13:45 | P.PN ---
Date of Service: 06/22/24 Subjective: No acute events overnight going today for debridement with Dr. Solorio ROS: 10 point ROS as noted above, otherwise negative Physical exam GEN: Alert, oriented, NAD HEENT: Normal conjunctiva, sclera anicteric CV: Regular rate and rhythm, no edema Pulm: Nonlabored respirations on room air ABD: Soft, nontender, nondistended MSK: No joint tenderness Integumentary: Large left lower extremity wound to the level of the fascia, right lower quadrant abdominal wall wound Neuro: Normal speech, normal affect Vitals reviewed Assessment: Cellulitis/infection of left lower extremity wound Severe congenital neutropenia Obstructive sleep apnea Plan: Cellulitis/infection of left lower extremity wound General Surgery consult-Dr. Solorio Went for debridement 06/22 Continue antibioticsvancomycin/cefepime Await results from blood cultures Infectious disease and general surgery following Severe congenital neutropenia Continue Neupogen Absolute neutrophil count 0.0, up to 0.1 Obstructive sleep apnea CPAP at night DVT PPX: Lovenox Code status: Full Discharge Plan: Home Plan to discharge in: Greater than 2 days Time Spent Managing Pts Care (In Minutes): 35
--- NOTE | 2024-06-22 16:54 | OP ---
Date of Procedure: 06/22/2024 Surgeon: Clyde Solorio MD, Preoperative Diagnosis: Left calf chronic wound. Postoperative Diagnosis: Left calf chronic wound. Procedure Performed: Excisional debridement of left calf chronic wound. Anesthesia: General endotracheal. Estimated Blood Loss: Less than 5 cc. Specimen: Debridement of tissue. Findings: Approximately 15 cm x 14 cm x 0.4 cm necrotic wound in the posterior calf extending down t o the fascia. Complications: None. Disposition: Patient transferred to recovery room in good condition. Procedure In Detail: After informed consent was obtained, the patient was brought to the operating r oom, prepped and draped in the usual sterile fashion, after adequate anesthesia was achieved. I proc eeded to use predominantly blunt and sharp dissection to remove an area of obvious hypertrophic and n ecrotic granular tissue circumferentially around the area of the catheter approximately 15 cm x 14 cm . After this was completely cleaned off, I irrigated the area copiously and scrubbed the area using combination of curette and blunt dissection. Ultimately, after the area was cleansed, hemostasis was achieved with simple pressure. Minimal blood loss appreciated throughout the procedure, less than 5 cc generally. The wound was then covered with Adaptic and Hydrofera Blue and wrapped with Kerlix an d an Mann bandage. The patient tolerated the procedure well without incident or complication, transferred to PACU in good condition. All counts were correct at the end of the case. NAEL/SRINATH Voice ID: [id number] Report ID: [id number]
[2024-06-23 05:47] LABS: Absolute Monocytes 0.9 K/uL (0.1-1.3); Absolute Neutrophil 0.1 K/uL (1.8-8.0); Basophils % 0.5 % (0-1.3); Eosinophils % 0.4 % (0-4.4); Hematocrit 22.9 % (39.6-49.0); Hemoglobin 7.3 g/dL (13.6-17.9); Lymphocytes % 47.9 % (15.3-44.8); MCHC 31.9 g/dL (32.0-36.0); MCV 78.6 fL (80-100); MPV 8.9 fL (7.6-11.3); Monocytes % 44.1 % (3.3-12.3); Neutrophils % 7.1 % (41.7-73.7); Nucleated Red Blood Cells % 0.1 % (0-0); Platelets 258 thou/uL (152-406); RBC Red Blood Cell Count 2.91 M/uL (4.33-5.43)
[2024-06-23 06:02] LABS: Anion Gap 9.7 mEq/L (5.0-15.0); Potassium 4.7 mEq/L (3.5-5.1)
[2024-06-23] MEDS: VANCOMYCIN 1.5 GM in NA CHLORIDE 0.9% 500 ML IVPB SCH (09:22)
[2024-06-23] MEDS: CEFEPIME 2 GM in NA CHLORIDE 0.9% 100 ML IV SCH (09:22)
--- NOTE | 2024-06-23 10:05 | P.PN ---
Date of Service: 06/23/24 Subjective: No acute events overnight C/O pain to LLE ROS: 10 point ROS as noted above, otherwise negative Physical exam GEN: Alert, oriented, NAD HEENT: Normal conjunctiva, sclera anicteric CV: Regular rate and rhythm, no edema Pulm: Nonlabored respirations on room air ABD: Soft, nontender, nondistended MSK: No joint tenderness Integumentary: Large left lower extremity wound to the level of the fascia, right lower quadrant abdominal wall wound Neuro: Normal speech, normal affect Vitals reviewed Assessment: Cellulitis/infection of left lower extremity wound S/P Excisional Debridement of Calf Chronic Wound 15 x 14cm x 0.4cm to fascia Severe congenital neutropenia Obstructive sleep apnea Plan: Cellulitis/infection of left lower extremity wound S/P Excisional Debridement of Calf Chronic Wound 15 x 14cm x 0.4cm to fascia General Surgery consult-Dr. Solorio Went for debridement 06/22 Continue antibioticsvancomycin/cefepime Await results from blood cultures Infectious disease and general surgery following Severe congenital neutropenia Continue Neupogen Absolute neutrophil count 0.0, up to 0.1 Obstructive sleep apnea CPAP at night DVT PPX: Lovenox Code status: Full Discharge Plan: Home Plan to discharge in: Greater than 2 days Time Spent Managing Pts Care (In Minutes): 35
[2024-06-23 11:46] LABS: Specific Gravity 1.014 (1.005-1.030); Urine Bilirubin NEGATIVE (Negative); Urine Blood Trace (Negative); Urine Clarity Clear (Clear); Urine Color Light-Yellow (Yellow); Urine Glucose 2+ (Negative); Urine Ketones NEGATIVE (Negative); Urine Micro Reflex YN NO BILL NO MICROSCOPIC; Urine Nitrite NEGATIVE (Negative); Urine Protein TRACE (Negative); Urine Urobilinogen Normal (Normal)
[2024-06-23] MEDS: COLLAGENASE 30 GM OINTMENT TOP SCH (14:21)
[2024-06-23] MEDS: HYDROCODONE/APAP 7.5/325 MG TAB PO PRN (19:52)
[2024-06-24 06:19] LABS: Absolute Eosinophils 0.2 K/uL (0-0.5); Absolute Lymphocytes (CBC) 1.8 K/uL (0.7-4.9); Absolute Monocytes 1.7 K/uL (0.1-1.3); Absolute Neutrophil 0.4 K/uL (1.8-8.0); Eosinophils % 4.7 % (0-4.4); Hemoglobin 7.3 g/dL (13.6-17.9); Lymphocytes % 44.4 % (15.3-44.8); MCH 24.8 pg (27.0-35.0); MCHC 31.9 g/dL (32.0-36.0); MCV 77.8 fL (80-100); MPV 8.6 fL (7.6-11.3); Monocytes % 40.6 % (3.3-12.3); Neutrophils % 10.3 % (41.7-73.7); Nucleated Red Blood Cells % 0.3 % (0-0); Platelets 302 thou/uL (152-406); RBC Red Blood Cell Count 2.95 M/uL (4.33-5.43); Red Cell Distribution Width 19.8 % (12.1-15.2)
[2024-06-24 06:23] LABS: Anion Gap 7.2 mEq/L (5.0-15.0); Potassium 4.2 mEq/L (3.5-5.1)
[2024-06-24] MEDS ORDERED: COLLAGENASE 30 GM OINTMENT TOP SCH (09:00)
[2024-06-24] MEDS: HYDROCODONE/APAP 10/325 TAB PO PRN (10:07)
--- NOTE | 2024-06-24 10:07 | P.PN ---
Date of Service: 06/24/24 Subjective: No acute events overnight C/O pain to LLE Tolerating abx ROS: 10 point ROS as noted above, otherwise negative Physical exam GEN: Alert, oriented, NAD HEENT: Normal conjunctiva, sclera anicteric CV: Regular rate and rhythm, no edema Pulm: Nonlabored respirations on room air ABD: Soft, nontender, nondistended MSK: No joint tenderness Integumentary: Large left lower extremity wound to the level of the fascia, right lower quadrant abdominal wall wound Neuro: Normal speech, normal affect Vitals reviewed Assessment: Cellulitis/infection of left lower extremity wound S/P Excisional Debridement of Calf Chronic Wound 15 x 14cm x 0.4cm to fascia Severe congenital neutropenia Obstructive sleep apnea Plan: Cellulitis/infection of left lower extremity wound S/P Excisional Debridement of Calf Chronic Wound 15 x 14cm x 0.4cm to fascia General Surgery consult-Dr. Solorio Went for debridement 06/22 Continue antibioticsvancomycin/cefepime Blood cultures with no growth in 24 hours Infectious disease and general surgery following Severe congenital neutropenia Continue Neupogen Absolute neutrophil count 0.0, up to 0.4 Obstructive sleep apnea CPAP at night DVT PPX: Lovenox Code status: Full Discharge Plan: Home Plan to discharge in: 1 day Time Spent Managing Pts Care (In Minutes): 35
[2024-06-24] MEDS: VANCOMYCIN 1.5 GM in NA CHLORIDE 0.9% 500 ML IVPB SCH (10:10)
[2024-06-24 10:48] LABS: Band Neutrophils 3 % (0-1); Differential Total Cells Count 100; Eosinophils 6 % (0-3); Lymphocytes 45 % (15-42); Monocytes 36 % (0-10); Segmented Neutrophils 8 % (40-80)
[2024-06-24 10:50] LABS: Anisocytosis 1+; Atypical Lymphocytes 1 %; Blood Morphology Comment NOTED (NOT SEEN); Hypochromasia 1+; Microcytosis 1+; Platelet Estimate ADEQ
[2024-06-24 22:13] VITALS: O2SAT 98
[2024-06-25 06:26] LABS: Absolute Basophils 0.1 K/uL (0-0.5); Absolute Eosinophils 0.4 K/uL (0-0.5); Absolute Lymphocytes (CBC) 2.3 K/uL (0.7-4.9); Absolute Monocytes 1.8 K/uL (0.1-1.3); Absolute Neutrophil 1.1 K/uL (1.8-8.0); Basophils % 1.4 % (0-1.3); Hematocrit 22.9 % (39.6-49.0); Hemoglobin 7.2 g/dL (13.6-17.9); Lymphocytes % 39.9 % (15.3-44.8); MCH 24.7 pg (27.0-35.0); MCHC 31.4 g/dL (32.0-36.0); MCV 78.7 fL (80-100); MPV 8.6 fL (7.6-11.3); Monocytes % 32.7 % (3.3-12.3); Nucleated Red Blood Cells % 0.7 % (0-0); Platelets 287 thou/uL (152-406); RBC Red Blood Cell Count 2.91 M/uL (4.33-5.43); Red Cell Distribution Width 20.2 % (12.1-15.2)
[2024-06-25 06:48] LABS: Anion Gap 7.3 mEq/L (5.0-15.0); Potassium 4.3 mEq/L (3.5-5.1)
[2024-06-25 08:40] VITALS: BP 149/69; TEMP 97.4
--- NOTE | 2024-06-25 14:26 | P.DS ---
Admission Date: 06/21/24 Discharge Date: 06/25/24 Disposition: ROUTINE DISCHARGE Discharge Condition: GOOD Reason for Admission: Left lower extremity cellulitis, severe neutropenia Consultations: Dr. Solorio Left lower extremity debridement Brief History of Present Illness: 33-year-old male with history of congenital neutropenia, anemia, sleep apnea, left lower extremity wound presents emerged part with chief complaint of worsening leg wound. He reports he was seen at [facility] and discharged on 05/25 with home health, he was subsequently discharged from home health on 06/09. Since then he has been unable to change the dressing to his left lower extremity and began to have increasing pain, foul odor and running low-grade fever. He came to the emergency department for evaluation. Patient was evaluated in the emergency department, temperature was 100.1, his labs were significant for a white blood cell count of 3.0 hemoglobin 8.3 absolute neutrophils are 0.0 neutrophils percent 1.2. Patient was started on antibiotics, case was discussed with patient's general surgeon Dr. Solorio who will see patient in the hospital. Hospital Course: Assessment: Cellulitis/infection of left lower extremity wound S/P Excisional Debridement of Calf Chronic Wound 15 x 14cm x 0.4cm to fascia Severe congenital neutropenia Obstructive sleep apnea Patient was admitted to the hospital for management of his left lower extremity wound which had necrotic tissue present. He underwent debridement on 06/22 with 15 x 14 cm x 0.4 cm wound to the level of fascia. He was treated with IV antibioticsvancomycin. He has remained afebrile, he does have severe congenital neutropenia his initial absolute neutrophil count was 0.0, he was given Neupogen during hospitalization and absolute neutrophils have increased to 1.1, white blood cell count also increased from 3-5.6. He stable for discharge at this time and follow-up with Dr. Solorio in 1 to 2 weeks. He will also be prescribed doxycycline for 2 weeks. Please follow-up with Dr. Solorio in 1 to 2 weeks Continue home medications as previously prescribed Take doxycycline twice daily for the next 2 weeks Continue wound care as ordered Vital Signs/Physical Exam: Temp Pulse Resp BP Pulse Ox 97.4 F 89 14 149/69 H 95 06/25/24 08:00 06/25/24 08:00 06/25/24 08:49 06/25/24 08:00 06/25/24 08:49 General: Alert, In no apparent distress, Oriented x3 HEENT: Atraumatic, PERRLA Neck: Supple, JVD not distended Respiratory: Clear to auscultation bilaterally, Normal air movement Cardiovascular: Regular rate/rhythm, Normal S1 S2 Gastrointestinal: Normal bowel sounds, No tenderness Musculoskeletal: No tenderness Integumentary: Other (LLE wound with dressing in place) Neurological: Normal speech, Normal tone, Normal affect Laboratory Data at Discharge: WBC 5.60 thou/uL (4.3-10.9) 06/25/24 06:04 Hgb 7.2 g/dL (13.6-17.9) L 06/25/24 06:04 Hct 22.9 % (39.6-49.0) L 06/25/24 06:04 Plt Count 287 thou/uL (152-406) 06/25/24 06:04 PT 16.6 SECONDS (9.4-12.5) H 06/21/24 04:00 INR 1.50 06/21/24 04:00 APTT 29.5 SECONDS (24.3-36.9) 06/21/24 04:00 Sodium 140 mEq/L (136-145) 06/25/24 06:04 Potassium 4.3 mEq/L (3.5-5.1) 06/25/24 06:04 BUN 15 mg/dL (7-18) 06/25/24 06:04 Creatinine 0.95 mg/dL (0.70-1.30) 06/25/24 06:04 Glucose 122 mg/dL (74-106) H 06/25/24 06:04 Total Bilirubin 0.4 mg/dL (0.2-1.0) 06/21/24 04:00 AST 29 U/L (15-37) 06/21/24 04:00 ALT 24 U/L (16-61) 06/21/24 04:00 Alkaline Phosphatase 49 U/L (45-117) 06/21/24 04:00 Home Medications: Trazodone [Desyrel*] 100 mg PO BEDTIME 04/07/24 Famotidine [Pepcid*] 20 mg PO DAILY 30 Days #30 tab 04/14/24 Ferrous Sulfate [Ferrous Sulfate*] 325 mg PO DAILY 30 Days #30 tab 04/14/24 methocarbamoL [Robaxin*] 500 mg PO TID PRN #15 tab 04/14/24 Doxycycline Monohydrate 100 mg PO BID 14 Days #28 tab 06/25/24 Oxycodone HCl/Acetaminophen [Oxycodone-Acetaminophn 7.5-325] 1 each PO Q6H 7 Days #28 tab 06/25/24 New Medications: Doxycycline Monohydrate 100 mg PO BID 14 Days #28 tab Oxycodone HCl/Acetaminophen [Oxycodone-Acetaminophn 7.5-325] 1 each PO Q6H 7 Days #28 tab Physician Discharge Instructions: PROBLEM: Leg wound infection GOAL: Clear understanding of disease process INSTRUCTIONS: Diet: Regular Activity: Fall precautions Patient was admitted to the hospital for management of his left lower extremity wound which had necrotic tissue present. He underwent debridement on 06/22 with 15 x 14 cm x 0.4 cm wound to the level of fascia. He was treated with IV antibioticsvancomycin. He has remained afebrile, he does have severe congenital neutropenia his initial absolute neutrophil count was 0.0, he was given Neupogen during hospitalization and absolute neutrophils have increased to 1.1, white blood cell count also increased from 3-5.6. He stable for discharge at this time and follow-up with Dr. Solorio in 1 to 2 weeks. He will also be prescribed doxycycline for 2 weeks. Please follow-up with Dr. Solorio in 1 to 2 weeks Continue home medications as previously prescribed Take doxycycline twice daily for the next 2 weeks Continue wound care as ordered Diet: Regular Activity: Fall precautions Followup: Clyde Solorio MD [ACTIVE - CAN ADMIT] - 1-2 Weeks NONE,NONE [Primary Care Provider] - Time spent managing pt's care (in minutes): 35
== END 2024-06-25 09:15 | disposition home or self-care (01) | DRG 264 ==
LOC: ER 16:26 → ERHOLD 06-21 07:37 → 2ND 06-21 08:19
PROVIDERS: ADMIT Internal Medicine; ATTEND Hospitalist
PROC: 02HV33Z Insertion of Infusion Device into Superior Vena Cava, Percutaneous Approach (ICD-10-PCS; 2024-06-21)
PROC: 5A09557 Assistance with Respiratory Ventilation, Greater than 96 Consecutive Hours, Continuous Positive Airway Pressure (ICD-10-PCS; 2024-06-21)
PROC: 0JBP0ZZ Excision of Left Lower Leg Subcutaneous Tissue and Fascia, Open Approach (ICD-10-PCS; principal; 2024-06-22 16:30)
DX: I96 Gangrene, not elsewhere classified (principal); L03.116 Cellulitis of left lower limb; E87.1 Hypo-osmolality and hyponatremia; R65.10 Systemic inflammatory response syndrome (SIRS) of non-infectious origin without acute organ dysfunction; L97.929 Non-pressure chronic ulcer of unspecified part of left lower leg with unspecified severity; D70.9 Neutropenia, unspecified; D63.8 Anemia in other chronic diseases classified elsewhere; G47.33 Obstructive sleep apnea (adult) (pediatric); D70.0 Congenital agranulocytosis; Z88.1 Allergy status to other antibiotic agents; Z79.52 Long term (current) use of systemic steroids; Z79.899 Other long term (current) drug therapy
CPT/HCPCS: 36415; 71045; 80048; 80053; 80202; 81001; 83605; 85025; 85610; 85730; 86850; 86900; 86901; 86920; 87040; 88304; 94660; 94760; 96365; 96366; 96367; 96375; 97116; 97161; 97530; 99285; J0692; J1100; J1170; J1447; J1650; J2001; J2250; J2270; J2405; J2543; J2704; J3010; J3590; J7030; J7040; J7050; J7120

== ENCOUNTER 2024-07-12 09:39 | Inpatient (IN) | payer OTHER ==
[2024-07-12] MEDS ORDERED: ONDANSETRON 4 MG/2 ML VIAL ONE (10:15)
[2024-07-12] MEDS ORDERED: VANCOMYCIN 1 GM/VIAL ONE (10:15)
[2024-07-12] MEDS ORDERED: MORPHINE 4 MG/ML SYR ONE ×2 (10:16→12:08)
[2024-07-12] MEDS ORDERED: CEFEPIME 2 GM VIAL ONE (10:16)
[2024-07-12] MEDS ORDERED: NA CHLORIDE 0.9% 250 ML ONE (10:16)
[2024-07-12] MEDS ORDERED: NA CHLORIDE 0.9% 1,000 ML ONE (10:16)
[2024-07-12] MEDS ORDERED: NA CHLORIDE 0.9% 100 ML ONE (10:16)
[2024-07-12 10:22] LABS: Absolute Eosinophils 0.1 K/uL (0-0.5); Absolute Lymphocytes (CBC) 1.1 K/uL (0.7-4.9); Absolute Monocytes 1.8 K/uL (0.1-1.3); Absolute Neutrophil 0.1 K/uL (1.8-8.0); Hematocrit 27.3 % (39.6-49.0); Hemoglobin 8.9 g/dL (13.6-17.9); Lymphocytes % 36.4 % (15.3-44.8); MCH 25.6 pg (27.0-35.0); MCHC 32.6 g/dL (32.0-36.0); MCV 78.4 fL (80-100); MPV 7.9 fL (7.6-11.3); Neutrophils % 3.6 % (41.7-73.7); Platelets 341 thou/uL (152-406); RBC Red Blood Cell Count 3.47 M/uL (4.33-5.43); Red Cell Distribution Width 21.3 % (12.1-15.2)
[2024-07-12 10:29] LABS: PT Prothrombin Time 18.8 SECONDS (9.4-12.5); PTT, Activated Partial Thromb 34.1 SECONDS (24.3-36.9); Protime INR 1.7
[2024-07-12] MEDS ORDERED: ACETAMINOPHEN 500 MG TAB ONE (10:37)
[2024-07-12 10:41] LABS: ALT/SGPT 17 U/L (16-61); Albumin 2.5 g/dL (3.4-5.0); Albumin/Globulin Ratio 0.3 (1.1-1.8); Alkaline Phosphatase 52 U/L (45-117); Anion Gap 2.8 mEq/L (5.0-15.0); BUN Blood Urea Nitrogen 10 mg/dL (7-18); Bicarbonate 33 mEq/L (21-32); Globulin 7.2 g/dL (2.3-3.5); Glomerular Filtration Rate 78 ml/min (=/>90); Glucose Level 142 mg/dL (74-106); Potassium 3.8 mEq/L (3.5-5.1); Protein, Total 9.7 g/dL (6.4-8.2); Sodium Level 129 mEq/L (136-145)
[2024-07-12 10:47] LABS: Band Neutrophils 7 % (0-1); Differential Total Cells Count 100; Segmented Neutrophils 7 % (40-80); White Blood Cell Scan OK (OK)
[2024-07-12 10:48] LABS: Anisocytosis 1+; Atypical Lymphocytes 2 %; Blood Morphology Comment NOTED (NOT SEEN); Eosinophils 3 % (0-3); Lymphocytes 48 % (15-42); Monocytes 31 % (0-10); Platelet Estimate ADEQ
[2024-07-12 10:52] LABS: AST/SGOT < 10 U/L (15-37)
--- NOTE | 2024-07-12 11:10 | RAD REPORT ---
EXAM DESCRIPTION: RADChest Single View07/12/2024 10:28 am CLINICAL HISTORY: cough, fever COMPARISON: Chest Single View dated 06/21/2024; Chest Single View dated 04/25/2024; Abdomen 1 View ([facility]) dated 04/10/2024; Chest Single View dated 04/06/2024 TECHNIQUE: Portable AP view of the chest. FINDINGS: Decreased inspiratory effort somewhat limits evaluation. The lungs are clear. No pneumoth orax or effusion. The cardiomediastinal contours are unremarkable. IMPRESSION: No acute cardiopulmonary process.
--- NOTE | 2024-07-12 12:08 | ER ---
Nurse's Notes [facility] Name: bAel Maria Age: 33 yrs Sex: Male : 1990 Arrival Date: 07/12/2024 Time: 09:39 Bed 3 Private MD: Diagnosis: Wound to left leg;Sepsis Presentation: 07/12 09:48 Onset of symptoms was July 12, 2024. mb9 09:49 Chief complaint: EMS states: FEVER AND COUGH, H/O NEUTROPENIA AND CHRONIC INFECTIONS. bp Coronavirus screen: At this time, the client does not indicate any symptoms associated with coronavirus-19. Ebola Screen: No symptoms or risks identified at this time. Initial Sepsis Screen: Does the patient meet any 2 criteria? No. Patient's initial sepsis screen is negative. Does the patient have a suspected source of infection? No. Patient's initial sepsis screen is negative. Risk Assessment: Do you want to hurt yourself or someone else? Patient reports no desire to harm self or others. 09:49 Method Of Arrival: EMS: [facility] bp 09:49 Acuity: RICH 3 bp Triage Assessment: 09:49 General: Appears in no apparent distress. ill, Behavior is calm, cooperative, bp appropriate for age. Pain: Denies pain. EENT: No deficits noted. Neuro: No deficits noted. Cardiovascular: Rhythm is sinus tachycardia. Respiratory: Reports cough that is. GI: No signs and/or symptoms were reported involving the gastrointestinal system. : No signs and/or symptoms were reported regarding the genitourinary system. Derm: No deficits noted. Musculoskeletal: Swelling present in left leg. Historical: - Allergies: 09:49 Bactrim; mb9 - PMHx: 09:49 Chronic leg wound (leg); Congenital neutropenia; Sleep Apnea; mb9 - PSHx: 09:49 eye; leg; rectum; mb9 - Immunization history:: Adult Immunizations up to date, Last tetanus immunization: unknown. - Infectious Disease History:: Denies. - Social history:: Smoking status: Patient denies any tobacco usage or history of. - Family history:: not pertinent. Screenin:51 [facility] ED Fall Risk Assessment (Adult) History of falling in the last 3 months, bp including since admission No falls in past 3 months (0 pts) Confusion or Disorientation No (0 pts) Intoxicated or Sedated No (0 pts) Impaired Gait No (0 pts) Mobility Assist Device Used No (0 pt) Altered Elimination No (0 pt) Score/Fall Risk Level 0 - 2 = Low Risk. Abuse screen: Denies threats or abuse. Denies injuries from another. Nutritional screening: No deficits noted. Tuberculosis screening: No symptoms or risk factors identified. Assessment: 09:52 General: SEE TRIAGE NOTE. bp 10:34 Pain: Complains of pain in left leg. Neuro: Blue Agitation-Sedation Scale (RASS): 0 mb9 - Alert and Calm Level of Consciousness is awake, alert, obeys commands, Oriented to person, place, time, situation, Appropriate for age. Cardiovascular: Heart tones S1 S2 present Patient's skin is warm and dry. Respiratory: Airway is patent Respiratory effort is even, unlabored, Respiratory pattern is regular, symmetrical, Breath sounds are clear bilaterally. GI: Abdomen is round non-distended, Bowel sounds present X 4 quads. Abd is soft and non tender X 4 quads. : No signs and/or symptoms were reported regarding the genitourinary system. EENT: No signs and/or symptoms were reported regarding the EENT system. Musculoskeletal: Range of motion: intact in all extremities. 10:34 Derm: Wound noted left leg Wound is purulent drainage and foul odor noted. mb9 11:44 Reassessment: No changes from previously documented assessment. Patient and/or family mb9 updated on plan of care and expected duration. Pain level reassessed. Patient is alert, oriented x 3, equal unlabored respirations, skin warm/dry/pink. 12:33 Reassessment: No changes from previously documented assessment. Patient and/or family mb9 updated on plan of care and expected duration. Pain level reassessed. Patient is alert, oriented x 3, equal unlabored respirations, skin warm/dry/pink. 13:56 Reassessment: REPORT FAXED TO 2ND. bp Vital Signs: 09:49 BP 141 / 75; Pulse 125; Resp 16; Temp 102.8(O); Pulse Ox 98% ; Weight 102.06 kg; Height mb9 5 ft. 5 in. ; 10:34 BP 108 / 53; Pulse 118; Resp 18; Pulse Ox 100% on R/A; mb9 11:44 BP 121 / 64; Pulse 103; Resp 20; Temp 99(O); Pulse Ox 100% on 2 lpm NC; mb9 12:33 BP 117 / 62; Pulse 91; Resp 18; Pulse Ox 100% on 2 lpm NC; mb9 13:56 BP 116 / 60; Pulse 80; Resp 16; Pulse Ox 100% ; bp 09:49 Body Mass Index 37.44 (102.06 kg, 165.1 cm) mb9 ED Course: 09:43 Patient arrived in ED. mb9 09:43 Raquel Edwards RN is Primary Nurse. mb9 09:43 Arm band placed on. mb9 09:44 Aric Puente MD is Attending Physician. rt 09:50 Triage completed. bp 09:51 Patient has correct armband on for positive identification. bp 10:09 Initial lab(s) drawn, by me, sent to lab. First set of blood cultures drawn by , keith Second set of blood cultures drawn by me, EKG done, by ED staff, reviewed by Aric Puente MD. Accessed peripheral vein via ultrasound, utilizing dynamic ultrasound technique using ,sterile technique, per hospital protocol. Clean \T\ dry. Dressing intact. Good blood return. Flushes easily. 20 g right FA. 10:30 Chest Single View XRAY In Process Unspecified. EDMS 10:35 Provided Education on: press call light if needing anything. mb9 10:41 No provider procedures requiring assistance completed. mb9 12:08 Apollo Ribeiro is Hospitalizing Provider. rt 13:25 Patient admitted, IV remains in place. mb9 13:58 Wound care: to SURGICAL WOUND LATERAL LLE located on left leg was dressed with ABD bp pads, Patient tolerated well. Administered Medications: 10:20 Drug: Ondansetron IVP 4 mg IVP once; over 2 minutes Route: IVP; Site: right antecubital;mb9 11:13 Follow up: Response: No adverse reaction mb9 10:25 Drug: morphine IVP or IV 4 mg IVP once over 4 mins Route: IVP; Infused Over: 4 mins; mb9 Site: right antecubital; 11:14 Follow up: Response: No adverse reaction mb9 10:33 Drug: Cefepime IVPB 2 grams IVPB at 200 ml/hr once over 30 mins; (mix in NS 100 mL) mb9 Route: IVPB; Rate: 200 ml/hr; Infused Over: 30 mins; Site: right antecubital; 11:13 Follow up: Response: No adverse reaction; IV Status: Completed infusion mb9 10:33 Drug: NS 0.9% IV 1000 ml IV at 1 bolus Per protocol; 1000 mL bolus Route: IV; Rate: 1 mb9 bolus; Site: right antecubital; 11:46 Follow up: Response: No adverse reaction; IV Status: Completed infusion mb9 10:40 Drug: Acetaminophen PO 1000 mg PO once Route: PO; mb9 11:13 Follow up: Response: No adverse reaction mb9 11:08 Drug: vancoMYCIN IVPB 1 grams IVPB once over 2 hrs Route: IVPB; Infused Over: 2 hrs; bp Site: right antecubital; 12:06 Follow up: Response: No adverse reaction; IV Status: Completed infusion mb9 12:12 Drug: morphine IVP or IV 4 mg IVP once over 4 mins Route: IVP; Infused Over: 4 mins; bp Site: right antecubital; 12:34 Follow up: Response: No adverse reaction mb9 Medication: 10:35 VIS not applicable for this client. mb9 Outcome: 12:08 Decision to Hospitalize by Provider. rt 13:58 Admitted to Med/surg accompanied by tech, via stretcher, room 219, with chart, Report bp called to FRANCIS ZULETA 13:58 Condition: stable 13:58 Instructed on the need for admit, 14:41 Patient left the ED. iw Signatures: Dispatcher [employer] EDStella Singh RN RN iw Peltier, Brian, RN RN bp Wilkerson, Mary Beth, RN RN mb9 [place], Ryan, MD MD rt Corrections: (The following items were deleted from the chart) 09:53 09:49 Musculoskeletal: No deficits noted. bp bp 10:18 09:49 BP 141 / 75; Pulse 125bpm; Resp 16bpm; Pulse Ox 98%; Temp 98F; bp mb9 10:42 10:34 Derm: Skin is pink, warm \T\ dry. mb9 mb9 11:46 11:44 Pulse 103bpm; Resp 20bpm; Pulse Ox 100% 2 lpm Nasal Cannula; mb9 mb9 13:58 13:56 Reassessment: REPORT FAXED TO [facility] bp
--- NOTE | 2024-07-12 12:08 | EDPHYS ---
Physician Documentation [facility] Name: Abel Maria Age: 33 yrs Sex: Male : 1990 Arrival Date: 07/12/2024 Time: 09:39 Bed 3 Private MD: ED Physician Aric Puente HPI: 07/12 10:16 This 33 yrs old Male presents to ER via EMS with complaints of Fever. rt 10:16 Patient with pre-existing neutropenia presents to the ED with infection to the left rt leg. Patient was on doxycycline for this. Patient states that he ran out of wound care supplies over the past 5 days and the wound, pain has worsened. Denies other acute complaints at this time, symptoms are moderate in severity, no other aggravating or alleviating factors.. Historical: - Allergies: 09:49 Bactrim; mb9 - PMHx: 09:49 Chronic leg wound (leg); Congenital neutropenia; Sleep Apnea; mb9 - PSHx: 09:49 eye; leg; rectum; mb9 - Immunization history:: Adult Immunizations up to date, Last tetanus immunization: unknown. - Infectious Disease History:: Denies. - Social history:: Smoking status: Patient denies any tobacco usage or history of. - Family history:: not pertinent. ROS: 10:16 Cardiovascular: Negative for chest pain, palpitations, and edema, Respiratory: Negative rt for shortness of breath, cough, wheezing, and pleuritic chest pain, Abdomen/GI: Negative for abdominal pain, nausea, vomiting, diarrhea, and constipation, 10:16 Neuro: Negative for headache, weakness, numbness, tingling, and seizure, 10:16 Constitutional: Positive for fever, malaise, 10:16 MS/extremity: Positive for Wound, pain, Exam: 10:16 Constitutional: This is a well developed, well nourished patient who is awake, alert, rt and in no acute distress. Head/Face: Normocephalic, atraumatic. Chest/axilla: Normal chest wall appearance and motion. Nontender with no deformity. No lesions are appreciated. Cardiovascular: Regular rate and rhythm with a normal S1 and S2. No gallops, murmurs, or rubs. Normal PMI, no JVD. No pulse deficits. Respiratory: Lungs have equal breath sounds bilaterally, clear to auscultation and percussion. No rales, rhonchi or wheezes noted. No increased work of breathing, no retractions or nasal flaring. Abdomen/GI: Soft, non-tender, with normal bowel sounds. No distension or tympany. No guarding or rebound. No evidence of tenderness throughout. Neuro: Awake and alert, GCS 15, oriented to person, place, time, and situation. Cranial nerves II-XII grossly intact. Motor strength 5/5 in all extremities. Sensory grossly intact. Cerebellar exam normal. Normal gait. 10:16 ECG was reviewed by the Attending Physician. 10:50 Musculoskeletal/extremity: Large open wound to the left lower extremity, discharge rt noted. Vital Signs: 09:49 BP 141 / 75; Pulse 125; Resp 16; Temp 102.8(O); Pulse Ox 98% ; Weight 102.06 kg; Height mb9 5 ft. 5 in. ; 10:34 BP 108 / 53; Pulse 118; Resp 18; Pulse Ox 100% on R/A; mb9 11:44 BP 121 / 64; Pulse 103; Resp 20; Temp 99(O); Pulse Ox 100% on 2 lpm NC; mb9 12:33 BP 117 / 62; Pulse 91; Resp 18; Pulse Ox 100% on 2 lpm NC; mb9 13:56 BP 116 / 60; Pulse 80; Resp 16; Pulse Ox 100% ; bp 09:49 Body Mass Index 37.44 (102.06 kg, 165.1 cm) mb9 MDM: 09:44 Patient medically screened. rt 15:41 Differential diagnosis: Sepsis, gangrene, chronic. Data reviewed: vital signs, nurses rt notes, lab test result(s), EKG, radiologic studies. Consideration of Admission/Observation Patient was admitted/placed on observation. Management of patient was discussed with the following: Hospitalist: Agrees to admit. I considered the following discharge prescriptions or medication management in the emergency department Medications were administered in the Emergency Department. See MAR. Independent interpretation of the following test(s) in the Emergency Department X-Ray: My interpretation is No pneumonia seen on interpretation of x-ray images. Care significantly affected by the following chronic conditions: Neutropenia. Counseling: I had a detailed discussion with the patient and/or guardian regarding the historical points, exam findings, and any diagnostic results supporting the discharge/admit diagnosis, lab results, radiology results, the need for further work-up and treatment in the hospital. Response to treatment: the patient's symptoms have mildly improved after treatment. 07/12 09:51 Order name: Blood Culture Adult (2) rt 07/12 09:51 Order name: CBC with Diff; Complete Time: 10:53 rt 07/12 09:51 Order name: CMP; Complete Time: 10:53 rt 07/12 09:51 Order name: Lactate w/ 2H reflex if indic.; Complete Time: 10:53 rt 07/12 09:51 Order name: Protime (+inr); Complete Time: 10:53 rt 07/12 09:51 Order name: Ptt, Activated; Complete Time: 10:53 rt 07/12 10:27 Order name: CBC Smear Scan; Complete Time: 10:53 EDMS 07/12 10:48 Order name: Manual Differential; Complete Time: 10:53 EDMS 07/12 13:22 Order name: Basic Metabolic Panel EDMS 07/12 13:22 Order name: Basic Metabolic Panel EDMS 07/12 13:22 Order name: Basic Metabolic Panel EDMS 07/12 13:22 Order name: Basic Metabolic Panel EDMS 07/12 13:22 Order name: Basic Metabolic Panel EDMS 07/12 13:22 Order name: Basic Metabolic Panel EDMS 07/12 13:22 Order name: Basic Metabolic Panel EDMS 07/12 13:22 Order name: Basic Metabolic Panel EDMS 07/12 13:22 Order name: CBC with Automated Diff EDMS / 13:22 Order name: CBC with Automated Diff EDMS / 13:22 Order name: CBC with Automated Diff EDMS / 13:22 Order name: CBC with Automated Diff EDMS / 13:22 Order name: CBC with Automated Diff EDMS 07/12 13:22 Order name: CBC with Automated Diff EDMS 07/12 13:22 Order name: CBC with Automated Diff EDMS / 13:22 Order name: CBC with Automated Diff EDMS / 13:22 Order name: Magnesium EDMS 07/12 13:22 Order name: Magnesium EDMS 07/12 13:22 Order name: Magnesium EDMS 07/12 13:22 Order name: Magnesium EDMS 07/12 13:22 Order name: Magnesium EDMS 07/12 13:22 Order name: Magnesium EDMS 07/12 13:22 Order name: Magnesium EDMS 07/12 13:22 Order name: Magnesium EDMS 07/12 13:22 Order name: Phosphorus EDMS 07/12 13:22 Order name: Phosphorus EDMS 07/12 13:22 Order name: Phosphorus EDMS 07/12 13:22 Order name: Phosphorus EDMS 07/12 13:22 Order name: Phosphorus EDMS 07/12 13:22 Order name: Phosphorus EDMS 07/12 13:22 Order name: Phosphorus EDMS 07/12 13:22 Order name: Phosphorus EDMS 07/12 13:22 Order name: Urinalysis w/ reflexes EDMS 07/12 09:51 Order name: Chest Single View XRAY; Complete Time: 11:20 rt 07/12 09:51 Order name: EKG; Complete Time: 09:52 rt 07/12 13:22 Order name: CONS Physician Consult EDMS 07/12 13:22 Order name: CONS [facility] Cons EDMS 07/12 09:51 Order name: Accucheck; Complete Time: 10:34 rt 07/12 09:51 Order name: Cardiac monitoring; Complete Time: 10:34 rt 07/12 09:51 Order name: EKG - Nurse/Tech; Complete Time: 10:34 rt 07/12 09:51 Order name: IV Saline Lock - Large Bore; Complete Time: 10:34 rt 07/12 09:51 Order name: Labs collected and sent; Complete Time: 10:34 rt 07/12 09:51 Order name: O2 Per Protocol; Complete Time: 10:34 rt 07/12 09:51 Order name: O2 Sat Monitoring; Complete Time: 10:34 rt 07/12 09:51 Order name: Vital Signs; Complete Time: 10:34 rt EC:16 Rate is 115 beats/min. Rhythm is regular, Sinus tachycardia with Occasional PVCs. QRS rt [place] is Normal. [place] interval is normal. QRS interval is normal. QT interval is normal. No Q waves. No ST changes noted. Interpreted by me. Administered Medications: 10:20 Drug: Ondansetron IVP 4 mg IVP once; over 2 minutes Route: IVP; Site: right antecubital;mb9 11:13 Follow up: Response: No adverse reaction mb9 10:25 Drug: morphine IVP or IV 4 mg IVP once over 4 mins Route: IVP; Infused Over: 4 mins; mb9 Site: right antecubital; 11:14 Follow up: Response: No adverse reaction mb9 10:33 Drug: Cefepime IVPB 2 grams IVPB at 200 ml/hr once over 30 mins; (mix in NS 100 mL) mb9 Route: IVPB; Rate: 200 ml/hr; Infused Over: 30 mins; Site: right antecubital; 11:13 Follow up: Response: No adverse reaction; IV Status: Completed infusion mb9 10:33 Drug: NS 0.9% IV 1000 ml IV at 1 bolus Per protocol; 1000 mL bolus Route: IV; Rate: 1 mb9 bolus; Site: right antecubital; 11:46 Follow up: Response: No adverse reaction; IV Status: Completed infusion mb9 10:40 Drug: Acetaminophen PO 1000 mg PO once Route: PO; mb9 11:13 Follow up: Response: No adverse reaction mb9 11:08 Drug: vancoMYCIN IVPB 1 grams IVPB once over 2 hrs Route: IVPB; Infused Over: 2 hrs; bp Site: right antecubital; 12:06 Follow up: Response: No adverse reaction; IV Status: Completed infusion mb9 12:12 Drug: morphine IVP or IV 4 mg IVP once over 4 mins Route: IVP; Infused Over: 4 mins; bp Site: right antecubital; 12:34 Follow up: Response: No adverse reaction mb9 Disposition Summary: 07/12/24 12:08 Hospitalization Ordered Notes: Hospitalization Status: Inpatient Admission rt Provider: Apollo Ribeiro rt Location: Telemetry/[facility] (Inpatient) rt Condition: Stable rt Problem: new rt Symptoms: have improved rt Bed/Room Type: Standard rt Room Assignment: 219(07/12/24 13:45) [email or web address] Diagnosis - Wound to left leg rt - Sepsis rt Forms: - Medication Reconciliation Form rt - SBAR form rt - Leadership Thank You Letter rt Critical care time excluding procedures: 15:41 Critical care time: Bedside Care: 30 minutes, Consultation: 5 minutes. Total time: 35 rt minutes Signatures: Dispatcher [employer] Rito Eagle RN RN bp Wilkerson, Mary Beth, RN RN mb9 Aric Puente MD MD rt Iman Fan jr12 Corrections: (The following items were deleted from the chart) 09:52 09:52 BLOOD CULTURE*+BA.LAB.BRZ ordered. EDMS EDMS 09:52 CBC+H.LAB.BRZ ordered. EDMS EDMS 09:52 COMPREHENSIVE METABOLIC PANEL+C.LAB.BRZ ordered. EDMS EDMS 09:52 LACTATE+C.LAB.BRZ ordered. EDMS EDMS 09:52 PROTIME (+INR)+COAG.LAB.BRZ ordered. EDMS EDMS 09:52 PTT, ACTIVATED+COAG.LAB.BRZ ordered. EDMS EDMS 13:45 12:08 rt [email or web address]
[2024-07-12] MEDS ORDERED: ACETAMINOPHEN 325 MG TABLET PO PRN (13:14)
[2024-07-12] MEDS ORDERED: ACETAMINOPHEN 500 MG TAB PO PRN (13:14)
--- NOTE | 2024-07-12 14:03 | P.HP ---
Certification for Inpatient Patient admitted to: Inpatient With expected LOS: >2 Midnights Practitioner: I am a practitioner with admitting privileges, knowledge of patient current condition, hospital course, and medical plan of care. Services: Services provided to patient in accordance with Admission requirements found in Title 42 Section 412.3 of the Code of Federal Regulations Patient History Date of Service: 07/12/24 Reason for admission: non healing wound to LLE History of Present Illness: Abel Maria is a 33 year old male with Pmhx congenital neutropenia, anemia, sleep apnea, left lower extremity wound who presents to the ED d/t worsening left lower extremity wound. He reports he cannot see Dr. Solorio at his wound clinic d/t a change in his insurance. He reports being compliant on Doxycycline for two weeks. He reports having a fever for a day with a recorded fever of 102.7 F upon arrival to the ED. On evaluation he is tachycardic, conversing well, in no acute distress, left lower extremity wound with erythema around the outer edge with necrotic appearing tissue. Dr. Solorio was consult and plans for I and D in the AM. Initial vitals BP 141 / 75; Pulse 125; Resp 16; Temp 102.8(O); Pulse Ox 98% Abel will be admitted to hospitalist service for further treatment. Allergies No Known Allergies Allergy (Unverified 10/26/23 16:35) Home Medications: NK [No Home Meds] 07/12/24 - Past Medical/Surgical History Diabetic: No -: Neutropenia -: Anemia -: Non healing wounds on the abdominal wall and the LLE -: Debriedement of the wounds on the left leg -: 03/29/24 LEXISCAN INJECTED. CARDIOLITE INJECTED no ischemia Psychosocial/ Personal History: Pt lives in a trailer now moved [place] the [place] area in [place] - Family History Mother Notes: Severe chronic acute Congenital neutropenia - Social History Alcohol use: No CD- Drugs: No Caffeine use: No Review of Systems Musculoskeletal: Other (wound to left lateral lower extremity) Integumentary: Other (wound to left lateral lower extremity) Physical Examination - Physical Exam General: Alert, In no apparent distress, Oriented x3 HEENT: Atraumatic, Normocephalic, PERRLA Neck: Supple, 2+ carotid pulse no bruit Respiratory: Clear to auscultation bilaterally, Normal air movement Cardiovascular: Normal pulses, Regular rate/rhythm, Normal S1 S2 Capillary refill: <2 Seconds Gastrointestinal: Normal bowel sounds, Soft and benign, Distended (obese) Musculoskeletal: Tenderness (LLE), Warmth (LLE) Neurological: Normal speech, Normal tone - Studies Laboratory Data (last 24 hrs) 07/12/24 07/12/24 07/12/24 10:09 10:09 10:09 WBC 3.20 L Hgb 8.9 L Hct 27.3 L Plt Count 341 PT 18.8 H INR 1.70 APTT 34.1 Sodium 129 L Potassium 3.8 BUN 10 Creatinine 1.24 Glucose 142 H Total Bilirubin 1.0 AST < 10 L ALT 17 Alkaline Phosphatase 52 Assessment and Plan - Plan Assessment and Plan Cellulitis/infection to chronic wound at E Febrile -Follow blood culture -Dr Solorio consulted, surgery in the AM -NPO after midnight -Wound dressing adaptic, hydrofera blue, and kerlix -cefepime/vanc, recently discharged on doxycycline and reports compliance -Pain control Hyponatremia -Na 129 -gentle IVF Severe congenital neutropenia -Continue Neupogen -Absolute neutrophil count 0.1 -Follow Dr. Chanel Obstructive sleep apnea -CPAP at night DVT ppx SCD Full code LOS 2-3 days Discharge Plan: Home Plan to discharge in: 72 Hours - Advance Directives Does patient have a Living Will: No Does patient have a Durable POA for Healthcare: No
[2024-07-12] MEDS: NA CHLORIDE 0.9% 1,000 ML IV SCH (14:58)
[2024-07-12 15:12] VITALS: BMI 37.4
[2024-07-12] MEDS: HYDROCODONE/APAP 10/325 TAB PO PRN (15:55)
[2024-07-12] MEDS: INSULIN REGULAR (HUMAN) 100 UNIT/ML SQ SCH (16:30)
[2024-07-12] MEDS: MORPHINE 2 MG/ML SYR IV PRN (17:50)
[2024-07-12] MEDS: VANCOMYCIN 750 MG in NA CHLORIDE 0.9% 150 ML IVPB ONE (20:57)
[2024-07-12 21:55] LABS: Specific Gravity 1.008 (1.005-1.030); Sqamous Epithelial <5 /HPF (None Seen); Urine Bacteria None Seen /HPF (<20); Urine Bilirubin NEGATIVE (Negative); Urine Blood 1+ (Negative); Urine Clarity Clear (Clear); Urine Color Light-Yellow (Yellow); Urine Crystals Unidentified Few /HPF (None Seen); Urine Culture Reflex Order NOT NEEDED; Urine Glucose NEGATIVE (Negative); Urine Ketones NEGATIVE (Negative); Urine Microscopic Reflex YN ORDER UMIC; Urine Nitrite NEGATIVE (Negative); Urine Protein TRACE (Negative); Urine RBC <5 /HPF (None Seen); Urine Urobilinogen Normal (Normal); Urine WBC <5 /HPF (<5)
[2024-07-12] MEDS: CEFEPIME 2 GM in NA CHLORIDE 0.9% 100 ML IV SCH (22:06)
[2024-07-13 04:43] LABS: Absolute Basophils 0.1 K/uL (0-0.5); Absolute Eosinophils 0.5 K/uL (0-0.5); Absolute Monocytes 1.3 K/uL (0.1-1.3); Eosinophils % 16.5 % (0-4.4); Hematocrit 25.6 % (39.6-49.0); Hemoglobin 8.1 g/dL (13.6-17.9); Lymphocytes % 34.8 % (15.3-44.8); MCH 25.3 pg (27.0-35.0); MCHC 31.7 g/dL (32.0-36.0); MCV 79.8 fL (80-100); MPV 8.6 fL (7.6-11.3); Monocytes % 45.6 % (3.3-12.3); Neutrophils % 1.1 % (41.7-73.7); Platelets 258 thou/uL (152-406); RBC Red Blood Cell Count 3.21 M/uL (4.33-5.43); Red Cell Distribution Width 21.4 % (12.1-15.2)
[2024-07-13 04:58] LABS: Anion Gap 9.3 mEq/L (5.0-15.0); Phosphorus 4.1 mg/dL (2.5-4.9); Potassium 4.3 mEq/L (3.5-5.1)
[2024-07-13] MEDS: VANCOMYCIN 1.75 GM in NA CHLORIDE 0.9% 500 ML IVPB SCH (05:13)
--- NOTE | 2024-07-13 07:55 | P.PN ---
Date of Service: 07/13/24 Subjective Awake playing computer video games, conversing well, NAD remains febrile Pain is controlled ROS 10 point ROS as noted above, otherwise negative Physical Exam General: AAOx3, NAD, febrile HEENT: Atraumatic, Normocephalic, PERRLA Neck: Supple, 2+ carotid pulse no bruit Respiratory: Clear to auscultation bilaterally, Normal air movement Cardiovascular: Normal pulses, tachycardic, Normal S1 S2 Capillary refill: <2 Seconds Gastrointestinal: Normal bowel sounds, Soft and benign, Distended (obese) Musculoskeletal: Tenderness (LLE), Warmth (LLE) Neurological: Normal speech, Normal tone Vitals Reviewed Problem list Sepsis 2/2 Cellulitis/infection to chronic wound at [facility] Febrile Hyponatremia Severe congenital neutropenia Obstructive sleep apnea Assessment and Plan Sepsis 2/2 Cellulitis/infection to chronic wound at [facility] Tachycardic likely 2/2 fever and infection -Sepsis criteria febrile, tachycardic -Follow blood culture -Dr Solorio consulted, surgery today -NPO after midnight -Wound dressing adaptic, hydrofera blue, and kerlix -continue cefepime/vanc, recently discharged on doxycycline and reports compliance -Pain control -IVF Hyponatremia -Na 132 -gentle IVF Severe congenital neutropenia -Continue Neupogen -Absolute neutrophil count 0.0 -Follow Dr. Chanel Obstructive sleep apnea -CPAP at night DVT ppx SCD Full code LOS 2-3 days Discharge Plan: Home Plan to discharge in: 72 Hours
[2024-07-13] MEDS: NA CHLORIDE 0.9% 1,000 ML IV SCH (07:56)
[2024-07-13] MEDS: ACETAMINOPHEN 650MG/RECT SUPP PR ONE (08:23)
--- NOTE | 2024-07-13 12:11 | EKG ---
Test Date: 2024-07-12 Test Time: 09:56:48 Artificial Flower Maker: MB MEASUREMENT RESULTS: Intervals: Rate: 115 TX: 158 QRSD: 72 QT: 330 QTc: 456 Aspers: P: 57 TX: 158 QRS: 71 T: 41 INTERPRETIVE STATEMENTS: Sinus tachycardia with premature ventricular complexes or fusion complexes Nonspecific ST and T wave abnormality Abnormal ECG Compared to ECG 06/21/2024 08:05:41 Fusion complex(es) now present Ventricular premature complex(es) now present ST (T wave) deviation now present Sinus rhythm no longer present Prolonged QT interval no longer present Electronically Signed On 07-13-24 12:07:33 CDT by Gildardo Mayes
[2024-07-13] MEDS ORDERED: FENTANYL CITR 100 MCG/2 ML ONE ×2 (14:42→16:45)
[2024-07-13] MEDS ORDERED: MIDAZOLAM HCL 2 MG/2 ML INJ ONE (14:42)
[2024-07-13] MEDS ORDERED: LIDOCAINE 2% MPF 5 ML VIAL ONE (14:42)
[2024-07-13] MEDS ORDERED: propofoL 200 MG/20 ML VIAL IV ONE (14:42)
[2024-07-13] MEDS ORDERED: ROCURONIUM 50 MG/5 ML VIAL IV ONE (14:43)
[2024-07-13] MEDS: SUCCINYLCHOLINE 20 MG/ML (10 ML) IV ONE (14:47)
[2024-07-13] MEDS: SUGAMMADEX SODIUM 200 MG/2 ML VIAL IV ONE (14:47)
[2024-07-13] MEDS: LIDOCAINE HCL/EPINEPHRINE 20 ML MDV ONE (16:08)
[2024-07-13] MEDS ORDERED: KETOROLAC 30 MG/ML INJ ONE (16:48)
--- NOTE | 2024-07-13 16:59 | P.OP ---
Preoperative diagnosis: LEFT Lower Extremity / Calf Chronic Wound Postoperative diagnosis: LEFT Lower Extremity / Calf Chronic Wound Primary procedure: Debridement of LEFT Lower Extremity / Calf Chronic Wound Anesthesia: GETA Estimated blood loss: 10cc Specimen: Debridement Tissue Findings: ~ 20cm x 15cm LEFT Lower Extremity / Calf Chronic Wound Complications: None Transferred to: Recovery Room Condition: Good
[2024-07-13] MEDS: HYDROMORPHONE HCL 1 MG/ML INJ ONE ×3 (17:11→18:00)
[2024-07-13] MEDS: NA CHLORIDE 0.9% 1,000 ML ONE (17:16)
[2024-07-13 18:02] VITALS: O2SAT 95
--- NOTE | 2024-07-13 18:18 | OP ---
Date of Procedure: 07/13/2024 Surgeon: Clyde Solorio MD, Preoperative Diagnosis: Left lower extremity/calf chronic wound. Postoperative Diagnosis: Left lower extremity/calf chronic wound. Procedure Performed: Debridement of left lower extremity/calf chronic wound. Anesthesia: General endotracheal. Estimated Blood Loss: Less than 10 cc. Specimen: Debridement of tissue. Findings: Approximately 20 cm x 15 cm left lower extremity chronic wound of the calf region. Complications: None. Disposition: Patient transferred to recovery room in good condition. Procedure In Detail: After informed consent was obtained, patient was brought to the operating room, prepped and draped in the usual sterile fashion. After adequate anesthesia was achieved, I performe d a blunt dissection of obvious slough, necrotic granulation tissue that had superficial slough necro sis down to good bleeding tissue. This was debrided in its entirety using predominantly blunt dissec tion. The area was then pulse lavaged until completely clear and sheet of Adaptic was placed, follow ed by Vashe soaked dressing and a sterile dressing was applied including Kerlix and Mann wrap. The pa tient tolerated the procedure without incident or complication, and transferred to PACU in good condition. All counts were correct at the end of the case. NAEL/SRINATH Voice ID: [id number] Report ID: [id number]
[2024-07-14 06:06] LABS: Absolute Eosinophils 0.3 K/uL (0-0.5); Absolute Lymphocytes (CBC) 0.7 K/uL (0.7-4.9); Absolute Monocytes 0.8 K/uL (0.1-1.3); Basophils % 1.7 % (0-1.3); Eosinophils % 14.8 % (0-4.4); Hematocrit 21.8 % (39.6-49.0); Hemoglobin 6.8 g/dL (13.6-17.9); Lymphocytes % 38.7 % (15.3-44.8); MCH 25.2 pg (27.0-35.0); MCHC 31.4 g/dL (32.0-36.0); MCV 80.3 fL (80-100); MPV 8.6 fL (7.6-11.3); Monocytes % 42.2 % (3.3-12.3); Neutrophils % 2.6 % (41.7-73.7); Platelets 250 thou/uL (152-406); RBC Red Blood Cell Count 2.71 M/uL (4.33-5.43); Red Cell Distribution Width 20.8 % (12.1-15.2)
[2024-07-14 06:19] LABS: Anion Gap 9.1 mEq/L (5.0-15.0); Potassium 5.1 mEq/L (3.5-5.1)
[2024-07-14] MEDS ORDERED: NA CHLORIDE 0.9% 250 ML IV SCH (10:00)
--- NOTE | 2024-07-14 10:23 | P.PN ---
Date of Service: 07/14/24 Subjective Awake and feeling well, concerned about his neutrophil and WBC counts Discussed his difficulty to completely healed without proper healthcare outside the hospital since he requires daily neupogene shots. afebrile overnight ROS 10 point ROS as noted above, otherwise negative Physical Exam General: Awake, alert, and oriented x3, NAD, afebrile HEENT: Atraumatic, Normocephalic, PERRLA Neck: Supple, 2+ carotid pulse no bruit Respiratory: Clear to auscultation bilaterally, Normal air movement, on RA Cardiovascular: Normal pulses, mild tachycardia, Normal S1 S2 Capillary refill: <2 Seconds Gastrointestinal: Normal bowel sounds, Soft on palpation, Distended (obese), nontender Musculoskeletal: Tenderness (LLE), Warmth (LLE), dressing to LLE CDI Neurological: Normal speech, Normal tone Vitals Reviewed Problem list Sepsis 2/2 Cellulitis/infection to chronic wound at [facility] Febrile Hyponatremia Severe congenital neutropenia Obstructive sleep apnea Assessment and Plan Sepsis 2/2 Cellulitis/infection to chronic wound at [facility] Tachycardic likely 2/2 fever and infection -Sepsis criteria febrile, tachycardic -Follow blood culture -Dr Solorio following -Wound dressing changes daily: adaptec followed by elenita gonzalez, wrap with damp gauze, kerlix, AMARJIT -continue cefepime/vanc, recently discharged on doxycycline and reports compliance -Pain control -IVF Hyponatremia -Na 133 -gentle IVF Severe congenital neutropenia Blood loss anemia -Continue Neupogen 07/14, one unit PRBC 07/14 -Absolute neutrophil count 0.0, H/H 6.8/21.8 -s/p transfusion recheck H/H -Follow Dr. Chanel Obstructive sleep apnea -CPAP at night DVT ppx SCD Full code LOS 2-3 days Discharge Plan: Home Plan to discharge in: 72 Hours <Kayli Reid - Last Filed: 07/14/24 09:56> Patient seen and examined. Plan of care discussed with Freddy Franklin Plan of care discussed with Dr. Solorio. Status post left lower extremity wound debridement. Local wound care. Analgesics as needed. Transfuse 1 unit PRBC for hemoglobin less than 7 WBC continues to trend down Start Neupogen injection Monitor CBC Possible discharge in a.m. with home. <tomi pitt - Last Filed: 07/14/24 17:49>
[2024-07-14] MEDS: TBO-FILGRASTIM 480 MCG/0.8 ML SYR SQ SCH (11:37)
[2024-07-14] MEDS: VANCOMYCIN 1.25 GM in NA CHLORIDE 0.9% 250 ML IVPB SCH (11:37)
[2024-07-14] MEDS: FUROSEMIDE 20 MG/ 2ML VIAL ONE (16:41)
[2024-07-14] MEDS: FUROSEMIDE 20 MG/ 2ML VIAL IV SCH (16:52)
[2024-07-14 18:47] LABS: Hematocrit 27.2 % (39.6-49.0); Hemoglobin 8.8 g/dL (13.6-17.9)
[2024-07-15 05:43] LABS: Absolute Eosinophils 0.3 K/uL (0-0.5); Absolute Lymphocytes (CBC) 1.3 K/uL (0.7-4.9); Absolute Monocytes 1.1 K/uL (0.1-1.3); Absolute Neutrophil 0.1 K/uL (1.8-8.0); Basophils % 0.4 % (0-1.3); Eosinophils % 11.4 % (0-4.4); Hematocrit 25.2 % (39.6-49.0); Hemoglobin 8.1 g/dL (13.6-17.9); MCH 26.3 pg (27.0-35.0); MCHC 32.3 g/dL (32.0-36.0); MCV 81.6 fL (80-100); MPV 8.3 fL (7.6-11.3); Monocytes % 38.9 % (3.3-12.3); Neutrophils % 4.3 % (41.7-73.7); Nucleated Red Blood Cells % 0.3 % (0-0); Platelets 278 thou/uL (152-406); RBC Red Blood Cell Count 3.09 M/uL (4.33-5.43); Red Cell Distribution Width 22.8 % (12.1-15.2)
[2024-07-15 05:58] LABS: Anion Gap 8.6 mEq/L (5.0-15.0); Magnesium 1.9 mg/dL (1.6-2.4); Phosphorus 2.5 mg/dL (2.5-4.9); Potassium 4.6 mEq/L (3.5-5.1)
[2024-07-15 08:47] LABS: Anisocytosis 1+; Blood Morphology Comment NOTED (NOT SEEN); Differential Total Cells Count 100; Eosinophils 7 % (0-3); Hypochromasia 1+; Lymphocytes 53 % (15-42); Microcytosis 2+; Monocytes 33 % (0-10); Platelet Estimate ADEQ; Segmented Neutrophils 6 % (40-80)
[2024-07-15 12:34] VITALS: BP 155/70; TEMP 98.1
--- NOTE | 2024-07-15 12:52 | P.DS ---
Admission Date: 07/12/24 Discharge Date: 07/15/24 Disposition: DC HOME/HOME HEALTH CARE Discharge Condition: FAIR Reason for Admission: non healing wound to [facility] Brief History of Present Illness: Diagnosis Sepsis 2/2 Cellulitis/infection to chronic wound at [facility] Febrile Hyponatremia Severe congenital neutropenia Obstructive sleep apnea HPI 07/12/2024 Abel Maria is a 33 year old male with Pmhx congenital neutropenia, anemia, sleep apnea, left lower extremity wound who presents to the ED d/t worsening left lower extremity wound. He reports he cannot see Dr. Solorio at his wound clinic d/t a change in his insurance. He reports being compliant on Doxycycline for two weeks. He reports having a fever for a day with a recorded fever of 102.7 F upon arrival to the ED. On evaluation he is tachycardic, conversing well, in no acute distress, left lower extremity wound with erythema around the outer edge with necrotic appearing tissue. Dr. Solorio was consult and plans for I and D in the AM. Initial vitals BP 141 / 75; Pulse 125; Resp 16; Temp 102.8(O); Pulse Ox 98% Abel will be admitted to hospitalist service for further treatment. Hospital Course: Abel Maria is a pleasant 33 year old male with a past medical history significant for congenital neutropenia, anemia, sleep apnea, left lower extremity wound who was admitted to the [facility] on 07/12/24 for nonhealing wound to left lower extremity. Abel presented to the ED with worsening left lower extremity wound and fever after completing doxycycline for two weeks. Dr. Solorio was consulted and performed and I and D on 07/13/24. He was transfused with 1 unit PRBC and given Neupogen x 2. He has tolerated IV antibiotics and will continue the antibiotic course outpatient with frequent follow up visits with Dr. Solorio. Home health will be providing care for daily wound dressings. He is tolerating PO diet and hemodynamically stable for discharge. On 07/15/24, Abel was seen on morning rounds and deemed medically stable for discharge. Abel was discharged with instructions to schedule follow-up appointments with Dr. Solorio and PCP. Abel was provided prescriptions for Aug mentin, doxycycline, hydrocodone. Physical Exam General: AAO x3, NAD, afebrile HEENT: Atraumatic, Normocephalic, PERRLA Neck: Supple, 2+ carotid pulse no bruit Respiratory: Clear to auscultation bilaterally, symmetrical chest wall movement, on RA Cardiovascular: Normal pulses, mild tachycardia, Normal S1 S2 Capillary refill: <2 Seconds Gastrointestinal: Normal bowel sounds, Soft on palpation, Distended (obese), NT Musculoskeletal: Tenderness (LLE), Warmth (LLE), dressing to LLE CDI Neurological: Normal speech, Normal tone Vital Signs/Physical Exam: Temp Pulse Resp BP Pulse Ox 98.1 F 101 H 22 H 155/70 H 95 07/15/24 12:00 07/15/24 12:00 07/15/24 12:00 07/15/24 12:00 07/15/24 12:00 Laboratory Data at Discharge: WBC 2.90 thou/uL (4.3-10.9) L 07/15/24 05:34 Hgb 8.1 g/dL (13.6-17.9) L 07/15/24 05:34 Hct 25.2 % (39.6-49.0) L 07/15/24 05:34 Plt Count 278 thou/uL (152-406) 07/15/24 05:34 PT 18.8 SECONDS (9.4-12.5) H 07/12/24 10:09 INR 1.70 07/12/24 10:09 APTT 34.1 SECONDS (24.3-36.9) 07/12/24 10:09 Sodium 133 mEq/L (136-145) L 07/15/24 05:34 Potassium 4.6 mEq/L (3.5-5.1) 07/15/24 05:34 BUN 17 mg/dL (7-18) 07/15/24 05:34 Creatinine 1.07 mg/dL (0.70-1.30) 07/15/24 05:34 Glucose 122 mg/dL (74-106) H 07/15/24 05:34 Phosphorus 2.5 mg/dL (2.5-4.9) 07/15/24 05:34 Magnesium 1.9 mg/dL (1.6-2.4) 07/15/24 05:34 Total Bilirubin 1.0 mg/dL (0.2-1.0) 07/12/24 10:09 AST < 10 U/L (15-37) L 07/12/24 10:09 ALT 17 U/L (16-61) 07/12/24 10:09 Alkaline Phosphatase 52 U/L (45-117) 07/12/24 10:09 Home Medications: Amox/Clavulanate [Augmentin 875-125 Tab] 875 mg PO BID 10 Days #20 tab 07/15/24 Doxycycline Hyclate 100 mg PO BID 10 Days #20 tab 07/15/24 Hydrocodone 10/APAP 325 [Dorset 10/325*] 1 tab PO Q6H PRN #20 tab 07/15/24 New Medications: Amox/Clavulanate [Augmentin 875-125 Tab] 875 mg PO BID 10 Days #20 tab Doxycycline Hyclate 100 mg PO BID 10 Days #20 tab Hydrocodone 10/APAP 325 [Dorset 10/325*] 1 tab PO Q6H PRN #20 tab PRN Reason: Pain Scale 5-7 (Moderate) Physician Discharge Instructions: 1. Please call and schedule a follow-up appointment with your PCP in 3-5 days - Please follow-up with your PCP for medication refills/adjustments 2. Please call and schedule a follow-up appointment with Dr. Solorio in one week 3. Continue regular diet 4. activity restrictions, fall precaution 5. Return to the ED if symptoms worsen New medications Doxycycline 100 mg p.o. twice daily x 10 days Augmentin 875 mg p.o. twice daily x 10 days daily dressings changes: adaptec followed by elenita gonzalez, wrap with damp gauze, AMARJIT perez FNP Home Primary Care Visits [phone] [facility] [place], [place] [address] [facility], [facility], [place] [address] For Hematology follow up. [facility] ([facility]) P:[phone] F:[phone] Diet: Regular Activity: Fall precautions Followup: NONE,NONE [Primary Care Provider] - Clyde Solorio MD [ACTIVE - CAN ADMIT] -
== END 2024-07-15 15:30 | disposition home health service (06) | DRG 854 ==
LOC: ER 09:39 → ERHOLD 13:14 → 2ND 14:31
PROVIDERS: ADMIT Internal Medicine; ATTEND Internal Medicine
PROC: 30233N1 Transfusion of Nonautologous Red Blood Cells into Peripheral Vein, Percutaneous Approach (ICD-10-PCS; 2024-07-12)
PROC: 0JBP0ZZ Excision of Left Lower Leg Subcutaneous Tissue and Fascia, Open Approach (ICD-10-PCS; principal; 2024-07-13 16:15)
DX: A41.9 Sepsis, unspecified organism (principal); E87.1 Hypo-osmolality and hyponatremia; L03.116 Cellulitis of left lower limb; D70.9 Neutropenia, unspecified; D70.0 Congenital agranulocytosis; D50.0 Iron deficiency anemia secondary to blood loss (chronic); G47.33 Obstructive sleep apnea (adult) (pediatric); Z88.1 Allergy status to other antibiotic agents; Z91.190 Patient's noncompliance with other medical treatment and regimen due to financial hardship
CPT/HCPCS: 36415; 36430; 71045; 80048; 80053; 80202; 81001; 82947; 83036; 83605; 83735; 84100; 85014; 85018; 85025; 85610; 85730; 86850; 86900; 86901; 86920; 87040; 88304; 93005; 96365; 96375; 99285; J0692; J1170; J1447; J1940; J2001; J2250; J2270; J2405; J2704; J3010; J7030; J7040; J7050; P9016

== ENCOUNTER 2024-09-02 15:24 | Inpatient (IN) | payer OTHER ==
[2024-09-02] MEDS ORDERED: NA CHLORIDE 0.9% 1,000 ML ONE (16:16)
[2024-09-02 17:02] LABS: Absolute Eosinophils 0.1 K/uL (0-0.5); Absolute Lymphocytes (CBC) 0.9 K/uL (0.7-4.9); Absolute Neutrophil 0.1 K/uL (1.8-8.0); Basophils % 1.6 % (0-1.3); Eosinophils % 3.7 % (0-4.4); Lymphocytes % 27.9 % (15.3-44.8); MCH 24.7 pg (27.0-35.0); MCHC 32.1 g/dL (32.0-36.0); Monocytes % 64.8 % (3.3-12.3); Platelets 384 thou/uL (152-406); RBC Red Blood Cell Count 3.25 M/uL (4.33-5.43); Red Cell Distribution Width 25.7 % (12.1-15.2)
[2024-09-02 17:21] LABS: ALT/SGPT 15 U/L (16-61); Albumin 1.9 g/dL (3.4-5.0); Albumin/Globulin Ratio 0.3 (1.1-1.8); Alkaline Phosphatase 62 U/L (45-117); Anion Gap 10.1 mEq/L (5.0-15.0); BUN Blood Urea Nitrogen 23 mg/dL (7-18); Bicarbonate 25 mEq/L (21-32); Bilirubin Total 0.7 mg/dL (0.2-1.0); Globulin 6.7 g/dL (2.3-3.5); Glomerular Filtration Rate 70 ml/min (=/>90); Glucose Level 125 mg/dL (74-106); Potassium 4.1 mEq/L (3.5-5.1); Protein, Total 8.6 g/dL (6.4-8.2); Sodium Level 134 mEq/L (136-145)
[2024-09-02 17:22] LABS: AST/SGOT < 10 U/L (15-37)
[2024-09-02 17:29] LABS: SARS-CoV-2 Antigen CONTROL BLUE LINE VIS/BG OK; SARS-CoV-2 Antigen Rapid Res Negative (Negative)
--- NOTE | 2024-09-02 17:30 | RAD REPORT ---
Procedure: Chest Single View HISTORY: Chest pain COMPARISON: June 2024 FINDINGS: The lungs appear clear of acute infiltrate. No significant pleural effusion noted. The heart is moderately enlarged. IMPRESSION: No acute abnormality is displayed.
--- NOTE | 2024-09-02 18:08 | EDPHYS ---
Physician Documentation [facility] Name: Abel Maria Age: 33 yrs Sex: Male : 1990 Arrival Date: 09/02/2024 Time: 15:24 Bed 8 Private MD: ED Physician Ml Javier HPI: 09/02 16:00 This 33 yrs old Male presents to ER via EMS with complaints of Blood Pressure Problem. sd2 16:00 33 yo M presents via EMS with CC of blood pressure problem. Per EMS, Home Health called sd2 due to concern for BP at 110/60. Pt reports they were concerned due to fever overnight and today and 2 episodes of vomiting. Pt has had recent graft to LLE for chronic wound. Reports slight cough and diarrhea. Denies CP, SOB.. Historical: - Allergies: 17:06 Bactrim; tl4 17:06 Dilaudid; tl4 - Home Meds: 17:46 Robaxin Oral 750 mg [Active]; Naprosyn 500 mg Oral tablet [Active]; tl4 hydrocodone-acetaminophen 10-325 mg Oral tablet [Active]; - PMHx: 17:06 Chronic leg wound (leg); Congenital neutropenia; Sleep Apnea; tl4 - PSHx: 17:06 eye; leg; rectum; tl4 - Immunization history:: Adult Immunizations unknown. - Infectious Disease History:: Denies. - Social history:: Smoking status: Patient denies any tobacco usage or history of. ROS: 16:00 Constitutional: Positive for fever, chills, and negative for weight loss, Eyes: sd2 Negative for injury, pain, redness, and discharge, Cardiovascular: Negative for chest pain, palpitations, and edema, Respiratory: Negative for shortness of breath, cough, wheezing. Abdomen/GI: Positive for nausea, vomiting, diarrhea. Negative for abdominal pain. MS/Extremity: Negative for injury and deformity, Skin: Negative for injury, rash, and positive for wound Exam: 16:00 Constitutional: This is a well developed, well nourished patient who is awake, alert, sd2 and in no acute distress. Head/Face: Normocephalic, atraumatic. Eyes: EOMI, normal conjunctiva bilaterally Chest/axilla: Normal chest wall appearance and motion. Nontender with no deformity. Cardiovascular: Tachycardic rate and regular rhythm with a normal S1 and S2. No gallops, murmurs, or rubs. 2+ distal pulses. Respiratory: Lungs have equal breath sounds bilaterally, clear to auscultation and percussion. No rales, rhonchi or wheezes noted. No increased work of breathing, no retractions or nasal flaring. Abdomen/GI: Soft, non-tender, with normal bowel sounds. No guarding or rebound. No evidence of tenderness throughout. Skin: Warm, dry with normal turgor. Chronic wound noted to lateral LLE. Bandage removed and Adaptic left in place with signs of well-healing granulation tissue. No surrounding erythema, warmth or fluctuance. MS/ Extremity: Pulses equal, no cyanosis. Neurovascular intact. Full, normal range of motion. Psych: Awake, alert, with orientation to person, place and time. Behavior, mood, and affect are within normal limits. 17:48 ECG was reviewed by the Attending Physician. Sinus tachycardia, rate 101, no STEMI sd2 criteria Vital Signs: 15:27 BP 112 / 66; Pulse 110; Resp 17; Temp 98.8(T); Pulse Ox 94% on R/A; Weight 115 kg; mb9 15:30 BP 115 / 81; Pulse 121; Resp 24; Pulse Ox 95% on R/A; tl4 16:30 BP 122 / 95; Pulse 112; Resp 15; Pulse Ox 95% on R/A; tl4 17:30 BP 128 / 77; Pulse 106; Resp 18; Pulse Ox 96% on R/A; tl4 19:05 BP 138 / 77; Pulse 104; Resp 18; Pulse Ox 96% on R/A; tl4 19:30 BP 137 / 73; Pulse 105; Resp 18; Pulse Ox 96% on R/A; al5 20:00 BP 124 / 72; Pulse 102; Resp 19; Pulse Ox 95% on R/A; al5 20:30 BP 136 / 73; Pulse 103; Resp 17; Pulse Ox 97% on R/A; al5 21:00 BP 128 / 76; Pulse 114; Resp 18; Pulse Ox 98% ; al5 21:30 BP 134 / 63; Pulse 110; Resp 17; Pulse Ox 95% on R/A; al5 MDM: 15:37 Medical Screening Exam initiated sd2 16:00 Differential Diagnosis wound infection, sepsis, viral URI, PNA, UTI among others. Data sd2 reviewed: vital signs, nurses notes, EMS record, lab test result(s), EKG, radiologic studies. Historians other than the Patient: EMS: provides initial report. 18:04 Counseling: I had a detailed discussion with the patient and/or guardian regarding the sd2 historical points, exam findings, and any diagnostic results supporting the discharge/admit diagnosis, lab results, radiology results, the need for further work-up and treatment in the hospital. ED course: Labs and imaging reviewed. Elevated LA and procalcitonin. Broad spectrum abx given. Wound appears well-healing and discussed with Dr. Solorio. Potential response to Neupogen injection. UA pending. Pt to be admitted for further management at this time. . 09/02 16:00 Order name: CBC with Diff sd2 09/02 16:00 Order name: CMP; Complete Time: 17:33 sd2 09/02 16:00 Order name: Magnesium; Complete Time: 17:33 sd2 09/02 16:00 Order name: Troponin High Sensitivity; Complete Time: 17:33 sd2 09/02 16:00 Order name: Procalcitonin; Complete Time: 17:33 sd2 09/02 16:00 Order name: Lactate w/ 2H reflex if indic.; Complete Time: 17:33 sd2 09/02 16:00 Order name: Urinalysis w/ reflexes sd2 09/02 16:00 Order name: Blood Culture Adult (2) sd2 09/02 16:00 Order name: SARS RAPID; Complete Time: 17:33 sd2 09/02 16:00 Order name: Flu; Complete Time: 17:33 sd2 09/02 17:10 Order name: Manual Differential EDMS 09/02 18:54 Order name: Urinalysis w/ reflexes EDMS 09/02 18:54 Order name: Basic Metabolic Panel EDMS 09/02 18:54 Order name: Basic Metabolic Panel EDMS 09/02 18:54 Order name: CBC with Automated Diff EDMS 09/02 18:54 Order name: CBC with Automated Diff EDMS 09/02 19:31 Order name: Ghost Lactate-NO COLLECT Timer EDMS 09/02 20:40 Order name: Lactate Sepsis 2 HR Follow-up EDMS 09/02 21:24 Order name: Phosphorus EDMS 09/02 21:24 Order name: Magnesium [facility] 09/02 16:00 Order name: XRAY Chest (1 view); Complete Time: 17:33 sd2 09/02 18:54 Order name: CONS Physician Consult [facility] 09/02 16:00 Order name: EKG - Nurse/Tech; Complete Time: 17:43 sd2 Administered Medications: 17:08 Drug: NS 0.9% IV 1000 ml IV at 1000 ml once; to be given as a bolus over 60 minutes tl4 Route: IV; Rate: 1000 ml; Site: left wrist; Delivery: Primary tubing; 19:24 Follow up: IV Status: Infusion continued upon admission tl4 19:24 Follow up: Response: No adverse reaction tl4 19:06 Drug: Piperacillin-Tazobactam IVPB 4.5 grams IVPB once over 60 mins; (mix in 100 mL NS) tl4 Route: IVPB; Infused Over: 60 mins; Site: right wrist; 19:24 Follow up: Response: No adverse reaction; IV Status: Infusion continued upon admission tl4 21:08 Follow up: IV Status: Completed infusion al5 21:20 Drug: vancoMYCIN IVPB 1.5 grams IVPB at calculated rate once Route: IVPB; Rate: al5 calculated rate; Site: left wrist; 21:30 Follow up: Response: No adverse reaction; IV Status: Infusion continued upon admission al5 Disposition Summary: 09/02/24 18:08 Hospitalization Ordered Notes: Hospitalization Status: Inpatient Admission sd2 Provider: Prince quinten Castillo [facility] Condition: Stable sd2 Problem: new sd2 Symptoms: have improved sd2 Bed/Room Type: Standard ky2 Room Assignment: 221(09/02/24 18:59) kmf Diagnosis - Sepsis, unspecified organism sd2 - Chronic left leg wound sd2 Forms: - Medication Reconciliation Form sd2 - SBAR form sd2 - Leadership Thank You Letter sd2 Signatures: Dispatcher [employer] Ml Blum MD MD sd2 Viky Mcmillan kmf Turner Marie RN RN tl4 Adriana Forrester RN RN al5 Corrections: (The following items were deleted from the chart) 16:00 16:00 CBC+H.LAB.BRZ ordered. EDMS EDMS 16:00 16:00 COMPREHENSIVE METABOLIC PANEL+C.LAB.BRZ ordered. EDMS EDMS 16:00 16:00 MAGNESIUM+C.LAB.BRZ ordered. EDMS EDMS 16:00 16:00 Troponin High Sensitivity+C.LAB.BRZ ordered. EDMS EDMS 16:00 16:00 PCT+C.LAB.BRZ ordered. EDMS EDMS 16:00 16:00 LACTATE+C.LAB.BRZ ordered. EDMS EDMS 16:00 16:00 Urinalysis+U.LAB.BRZ ordered. EDMS EDMS 16:00 16:00 BLOOD CULTURE*+BA.LAB.BRZ ordered. EDMS EDMS 16:00 16:00 SARS-COV-2 Antigen Rapid+I.LAB.BRZ ordered. EDMS EDMS 16:00 16:00 Influenza Screen (A \T\ B)+BA.LAB.BRZ ordered. EDMS EDMS 16:00 16:00 Chest Single View+RAD.RAD.BRZ ordered. EDMS EDMS 18:59 18:08 sd2 kmf
--- NOTE | 2024-09-02 18:08 | ER ---
Nurse's Notes [facility] Name: Abel Maria Age: 33 yrs Sex: Male : 1990 Arrival Date: 09/02/2024 Time: 15:24 Bed 8 Private MD: Diagnosis: Sepsis, unspecified organism;Chronic left leg wound Presentation: 09/02 15:27 Chief complaint: EMS states: home health nurse called for low blood pressure, 110/60. mb9 Coronavirus screen: At this time, the client does not indicate any symptoms associated with coronavirus-19. Ebola Screen: No symptoms or risks identified at this time. 15:27 Method Of Arrival: EMS: [facility] mb9 15:27 Initial Sepsis Screen: Does the patient meet any 2 criteria? No. Patient's initial mb9 sepsis screen is negative. Does the patient have a suspected source of infection? No. Patient's initial sepsis screen is negative. Risk Assessment: Do you want to hurt yourself or someone else? Patient reports no desire to harm self or others. Onset of symptoms was September 02, 2024. Care prior to arrival: Medication(s) given: zofran 4 mg. 15:27 Acuity: RICH 3 mb9 Triage Assessment: 17:07 General: Behavior is cooperative. tl4 Historical: - Allergies: 17:06 Bactrim; tl4 17:06 Dilaudid; tl4 - Home Meds: 17:46 Robaxin Oral 750 mg [Active]; Naprosyn 500 mg Oral tablet [Active]; tl4 hydrocodone-acetaminophen 10-325 mg Oral tablet [Active]; - PMHx: 17:06 Chronic leg wound (leg); Congenital neutropenia; Sleep Apnea; tl4 - PSHx: 17:06 eye; leg; rectum; tl4 - Immunization history:: Adult Immunizations unknown. - Infectious Disease History:: Denies. - Social history:: Smoking status: Patient denies any tobacco usage or history of. Screenin:04 [facility] ED Fall Risk Assessment (Adult) History of falling in the last 3 months, tl4 including since admission No falls in past 3 months (0 pts) Confusion or Disorientation No (0 pts) Intoxicated or Sedated No (0 pts) Impaired Gait No (0 pts) Mobility Assist Device Used No (0 pt) Altered Elimination No (0 pt) Score/Fall Risk Level 0 - 2 = Low Risk Oriented to surroundings, Maintained a safe environment, Educated pt \T\ family on fall prevention, incl call for assistance when getting out of bed, Assessed \T\ reinforced patient's understanding of fall precautions. Abuse screen: Denies threats or abuse. Denies injuries from another. Nutritional screening: No deficits noted. Tuberculosis screening: No symptoms or risk factors identified. Assessment: 16:55 General: Appears in no apparent distress. Pain: Complains of pain in left leg. Neuro: tl4 Level of Consciousness is awake, alert, obeys commands, Oriented to person, place, time, situation. Cardiovascular: Denies chest pain, diaphoresis, fatigue, lightheadedness, Capillary refill < 3 seconds Patient's skin is warm and dry. Respiratory: Airway is patent Respiratory effort is even, unlabored, Respiratory pattern is regular, symmetrical, Breath sounds are clear bilaterally. GI: No signs and/or symptoms were reported involving the gastrointestinal system. : No signs and/or symptoms were reported regarding the genitourinary system. EENT: No signs and/or symptoms were reported regarding the EENT system. Derm: Wound noted left leg Other: wound covered with adaptic dressing, no active drainage noted. Musculoskeletal: No signs and/or symptoms reported regarding the musculoskeletal system. 19:22 General: Appears in no apparent distress. uncomfortable, Behavior is calm, cooperative. tl4 Pain: Complains of pain in left leg Pain currently is 8 out of 10 on a pain scale. Neuro: Level of Consciousness is awake, alert, obeys commands, Oriented to person, place, time, situation. Cardiovascular: Capillary refill < 3 seconds Patient's skin is warm and dry. Respiratory: Airway is patent Respiratory effort is even, unlabored, Respiratory pattern is regular, symmetrical. GI: No signs and/or symptoms were reported involving the gastrointestinal system. : No signs and/or symptoms were reported regarding the genitourinary system. EENT: No signs and/or symptoms were reported regarding the EENT system. Derm: Wound noted lateral aspect of left calf Other: wound care done, wound dressed previous shift. Musculoskeletal: No signs and/or symptoms reported regarding the musculoskeletal system. 21:00 Reassessment: Patient appears in no apparent distress at this time. No changes from al5 previously documented assessment. Patient and/or family updated on plan of care and expected duration. Pain level reassessed. Patient is alert, oriented x 3, equal unlabored respirations, skin warm/dry/pink. Vital Signs: 15:27 BP 112 / 66; Pulse 110; Resp 17; Temp 98.8(T); Pulse Ox 94% on R/A; Weight 115 kg; mb9 15:30 BP 115 / 81; Pulse 121; Resp 24; Pulse Ox 95% on R/A; tl4 16:30 BP 122 / 95; Pulse 112; Resp 15; Pulse Ox 95% on R/A; tl4 17:30 BP 128 / 77; Pulse 106; Resp 18; Pulse Ox 96% on R/A; tl4 19:05 BP 138 / 77; Pulse 104; Resp 18; Pulse Ox 96% on R/A; tl4 19:30 BP 137 / 73; Pulse 105; Resp 18; Pulse Ox 96% on R/A; al5 20:00 BP 124 / 72; Pulse 102; Resp 19; Pulse Ox 95% on R/A; al5 20:30 BP 136 / 73; Pulse 103; Resp 17; Pulse Ox 97% on R/A; al5 21:00 BP 128 / 76; Pulse 114; Resp 18; Pulse Ox 98% ; al5 21:30 BP 134 / 63; Pulse 110; Resp 17; Pulse Ox 95% on R/A; al5 Vitals: 16:30 Cardiac Rhythm Assessment Regular Sinus tach. tl4 ED Course: 15:24 Patient arrived in ED. mb9 15:32 Triage completed. mb9 15:37 Ml Javier MD is Attending Physician. sd2 17:05 Patient has correct armband on for positive identification. Placed in gown. Bed in low tl4 position. Call light in reach. Side rails up X2. Provided Education on: ed process, call kate. Client placed on continuous cardiac and pulse oximetry monitoring. NIBP monitoring applied. electronic device monitor on. Door closed. Noise minimized. Lights dimmed. Moved to private room. Warm blanket given. 17:05 No provider procedures requiring assistance completed. Maintain EMS IV. Dressing tl4 intact. Good blood return noted. Site clean \T\ dry. Gauge \T\ site: 20g left wrist. Flushed with 10 mL NS. 17:06 Initial lab(s) drawn, by me, sent to lab. First set of blood cultures drawn by me. tl4 17:08 Arm band placed on right wrist. tl4 17:08 Flu Sent. tl4 17:08 SARS RAPID Sent. tl4 17:08 Lactate w/ 2H reflex if indic. Sent. tl4 17:08 Procalcitonin Sent. tl4 17:08 Troponin High Sensitivity Sent. tl4 17:09 Magnesium Sent. tl4 17:09 CMP Sent. tl4 17:18 XRAY Chest (1 view) In Process Unspecified. EDMS 17:40 Wound care: located on lateral aspect of left calf was dressed with wet to dry dressing tl4 secured with carlita and waleska bandage. Pt tolerated well. 18:07 Prince Castillo MD is Hospitalizing Provider. sd2 19:21 Turner Marie, RN is Primary Nurse. tl4 19:23 Patient admitted, IV remains in place. tl4 Administered Medications: 17:08 Drug: NS 0.9% IV 1000 ml IV at 1000 ml once; to be given as a bolus over 60 minutes tl4 Route: IV; Rate: 1000 ml; Site: left wrist; Delivery: Primary tubing; 19:24 Follow up: IV Status: Infusion continued upon admission tl4 19:24 Follow up: Response: No adverse reaction tl4 19:06 Drug: Piperacillin-Tazobactam IVPB 4.5 grams IVPB once over 60 mins; (mix in 100 mL NS) tl4 Route: IVPB; Infused Over: 60 mins; Site: right wrist; 19:24 Follow up: Response: No adverse reaction; IV Status: Infusion continued upon admission tl4 21:08 Follow up: IV Status: Completed infusion al5 21:20 Drug: vancoMYCIN IVPB 1.5 grams IVPB at calculated rate once Route: IVPB; Rate: al5 calculated rate; Site: left wrist; 21:30 Follow up: Response: No adverse reaction; IV Status: Infusion continued upon admission al5 Medication: 17:04 VIS not applicable for this client. tl4 Outcome: 18:08 Decision to Hospitalize by Provider. sd2 21:59 Admitted to Med/surg accompanied by tech, via stretcher, room 221, with chart, al5 21:59 Condition: good 21:59 Instructed on the need for admit, 21:59 Patient left the ED. al5 Signatures: Dispatcher [employer] Ml Blum MD MD sd2 Raquel Edwards RN RN mb9 Turner Marie RN RN tl4 Adriana Forrester RN RN al5
[2024-09-02 18:20] LABS: Differential Total Cells Count 100; Eosinophils 3 % (0-3); Lymphocytes 50 % (15-42); Monocytes 44 % (0-10); Segmented Neutrophils 2 % (40-80)
[2024-09-02 18:21] LABS: Anisocytosis 1+; Platelet Estimate ADEQ
[2024-09-02] MEDS ORDERED: NA CHLORIDE 0.9% 500 ML ONE (18:53)
[2024-09-02] MEDS ORDERED: VANCOMYCIN 1 GM/VIAL ONE (18:53)
[2024-09-02] MEDS ORDERED: VANCOMYCIN 500 MG/VIAL ONE (18:53)
[2024-09-02] MEDS ORDERED: PIPERACIL/TAZO 4.5 GM VIAL IV ONE (18:53)
[2024-09-02] MEDS ORDERED: NA CHLORIDE 0.9% 100 ML ONE (18:53)
[2024-09-02] MEDS: VANCOMYCIN 1 GM in NA CHLORIDE 0.9% 250 ML IVPB SCH (19:00)
[2024-09-02] MEDS: NA CHLORIDE 0.9% 1,000 ML IV SCH (19:00)
--- NOTE | 2024-09-02 19:02 | P.HP ---
Certification for Inpatient Patient admitted to: Inpatient With expected LOS: >2 Midnights Practitioner: I am a practitioner with admitting privileges, knowledge of patient current condition, hospital course, and medical plan of care. Services: Services provided to patient in accordance with Admission requirements found in Title 42 Section 412.3 of the Code of Federal Regulations Patient History Date of Service: 09/02/24 Reason for admission: LLE wound cellulitis History of Present Illness: Patient is a 33-year-old male with a past medical history of congenital neutropenia, anemia and obstructive sleep apnea. He also has a history of chronic left lower extremity wound that has been poorly healing. This has been managed with graft. Patient is known to general surgery and follows up with Dr. Murillo. He is here with an acute onset of febrile illness associated with chills. Patient is also developed left lower extremity pain. He had a debridemnt with surgery on 08/02/2024. Wound culture yielded multidrug- resistant Enterobacter cloacae and Pseudomonas aeruginosa. The above organisms were sensitive to meropenem and levofloxacin. Allergies sulfamethoxazole [From Bactrim] Allergy (Verified 07/13/24 15:08) Itching trimethoprim [From Bactrim] Allergy (Verified 07/13/24 15:08) Itching Home Medications: Hydrocodone 10/APAP 325 [[place] 10/325*] 1 tab PO Q6H PRN #20 tab 07/15/24 Hydrocodone 10/APAP 325 [[place] 10/325] 1 tab PO Q6H PRN #15 tab 08/05/24 levoFLOXacin [Levaquin*] 750 mg PO DAILY 10 Days #10 tab 08/05/24 - Past Medical/Surgical History Diabetic: No -: Neutropenia -: Anemia -: Non healing wounds on the abdominal wall and the LLE -: Debriedement of the wounds on the left leg -: 03/29/24 LEXISCAN INJECTED. CARDIOLITE INJECTED no ischemia Psychosocial/ Personal History: Pt lives in a trailer now moved to the [place] area in his trailer - Family History Mother Notes: Severe chronic acute Congenital neutropenia - Social History Alcohol use: No CD- Drugs: No Caffeine use: No Physical Examination - Physical Exam General: In no apparent distress, Obese HEENT: Atraumatic, Normocephalic Respiratory: Clear to auscultation bilaterally, Normal air movement Cardiovascular: No edema, Regular rate/rhythm, Normal S1 S2 Integumentary: Other (LLE wrapped) Neurological: Normal speech - Studies Laboratory Data (last 24 hrs) 09/02/24 09/02/24 16:48 16:48 WBC 3.10 L Hgb 8.0 L Hct 25.0 L Plt Count 384 Sodium 134 L Potassium 4.1 BUN 23 H Creatinine 1.36 H Glucose 125 H Magnesium 2.0 Total Bilirubin 0.7 AST < 10 L ALT 15 L Alkaline Phosphatase 62 Microbiology Data (last 24 hrs): 09/02/24 16:41 Nasopharnyx Influenza Type A Antigen Screen - Final 09/02/24 16:41 Nasopharnyx Influenza Type B Antigen Screen - Final Assessment and Plan - Problems (Diagnosis) (1) Abdominal wall cellulitis Current Visit: No Status: Acute (2) Anemia Current Visit: No Status: Acute (3) Cellulitis of left lower extremity Current Visit: No Status: Acute (4) Congenital neutropenia Current Visit: No Status: Acute - Plan Assessment Patient is a 33-year-old male with congenital neutropenia and chronic left lower extremity wound cellulitis poorly healing, status post graft. He is presenting to the ER with a sudden onset of fever. Patient is neutropenic. Procalcitonin of 2.7. He is also having left lower extremity pain. He also has superficial abrasion under the right pannus. Sepsis Left lower extremity wound cellulitis Congenital neutropenia Severe neutropenia Anemia RICCI Morbid obesity Plan: Will admit the patient as inpatient Start patient on empiric antibiotics including meropenem to cover past organisms General Surgery and Infectious disease consulted Continue IV fluid for mild renal insufficiency Follow blood culture DVT prophylaxis - Advance Directives Does patient have a Living Will: No Does patient have a Durable POA for Healthcare: No
[2024-09-02 19:23] LABS: Specific Gravity 1.028 (1.005-1.030); Sqamous Epithelial <5 /HPF (None Seen); Urine Bacteria None Seen /HPF (<20); Urine Bilirubin NEGATIVE (Negative); Urine Blood 2+ (Negative); Urine Clarity Turbid (Clear); Urine Color Yellow (Yellow); Urine Crystals Unidentified Few /HPF (None Seen); Urine Culture Reflex Order NOT NEEDED; Urine Glucose NEGATIVE (Negative); Urine Ketones TRACE (Negative); Urine Microscopic Reflex YN ORDER UMIC; Urine Mucus Slight /HPF (None Seen); Urine Nitrite NEGATIVE (Negative); Urine Protein 1+ (Negative); Urine Urobilinogen 1+ (Normal); Urine WBC <5 /HPF (<5); Urine WBC Clump Rare /HPF (None Seen); Urine pH 5.5 (5.0-7.0)
[2024-09-02] MEDS: Meropenem 500 MG in NA CHLORIDE 0.9% 100 ML IV SCH (20:00)
[2024-09-02] MEDS ORDERED: HYDROMORPHONE HCL 1 MG/ML INJ ONE (20:54)
[2024-09-02] MEDS ORDERED: ONDANSETRON 4 MG/2 ML VIAL ONE (20:58)
[2024-09-02] MEDS: HYDROMORPHONE HCL 1 MG/ML INJ IV PRN (21:07)
[2024-09-02] MEDS: ONDANSETRON 4 MG/2 ML VIAL IV PRN (21:07)
[2024-09-02 21:24] LABS: Magnesium 1.9 mg/dL (1.6-2.4); Phosphorus 2.6 mg/dL (2.5-4.9)
[2024-09-02] MEDS: VANCOMYCIN 500 MG in NA CHLORIDE 0.9% 100 ML IVPB ONE (22:45)
[2024-09-02 23:12] VITALS: BMI 43.0
[2024-09-02] MEDS: Oxycodone HCl/Acetaminophen 5/325 MG TAB PO PRN (23:14)
[2024-09-03 05:37] LABS: Absolute Eosinophils 0.4 K/uL (0-0.5); Absolute Lymphocytes (CBC) 1.1 K/uL (0.7-4.9); Absolute Monocytes 1.8 K/uL (0.1-1.3); Absolute Neutrophil 0.1 K/uL (1.8-8.0); Eosinophils % 11.2 % (0-4.4); Hematocrit 24.2 % (39.6-49.0); Hemoglobin 7.9 g/dL (13.6-17.9); Lymphocytes % 32.9 % (15.3-44.8); MCH 25.2 pg (27.0-35.0); MCHC 32.8 g/dL (32.0-36.0); MCV 76.8 fL (80-100); MPV 7.9 fL (7.6-11.3); Monocytes % 53.2 % (3.3-12.3); Neutrophils % 2.7 % (41.7-73.7); Nucleated Red Blood Cells % 0.1 % (0-0); Platelets 340 thou/uL (152-406); RBC Red Blood Cell Count 3.15 M/uL (4.33-5.43); Red Cell Distribution Width 25.6 % (12.1-15.2)
[2024-09-03 05:48] LABS: Anion Gap 9.3 mEq/L (5.0-15.0); Potassium 4.3 mEq/L (3.5-5.1)
[2024-09-03] MEDS: NA CHLORIDE 0.9% 500 ML IV ONE (06:02)
[2024-09-03] MEDS: FLU (Fluarix Triv) TS24-25(6MOS UP)/PF 45 MCG/0.5 ML Syringe IM ONE (07:45)
[2024-09-03] MEDS: TBO-FILGRASTIM 300 MCG/0.5 ML SYR SQ SCH (09:53)
[2024-09-03] MEDS: VANCOMYCIN 1.5 GM in NA CHLORIDE 0.9% 500 ML IVPB SCH (09:53)
[2024-09-03] MEDS: SUCRALFATE 1 GM TABLET PO ONE (17:35)
[2024-09-03] MEDS: SIMETHICONE 125 MG TAB PO PRN (17:35)
--- NOTE | 2024-09-03 17:58 | P.PN ---
Subjective Date of Service: 09/03/24 Chart reviewed. Events of last 24 hours noted. Patient well-known to me from multiple prior admissions. Patient had skin graft done recently. Continue with antibiotic therapy at this time and patient status post Neupogen. Once his white blood cell count is elevated and surgery agreeable did not discharge him with outpatient follow-up. Review of Systems 10-point ROS is otherwise unremarkable Physical Examination - Vital Signs Temperature: 97.3 F Blood Pressure: 112/56 Pulse: 93 Respirations: 16 Pulse Ox (%): 94 - Physical Exam General: Alert, In no apparent distress, Oriented x3 HEENT: Atraumatic, PERRLA, EOMI Neck: Supple, JVD not distended Respiratory: Clear to auscultation bilaterally, Normal air movement Cardiovascular: Regular rate/rhythm, Normal S1 S2 Gastrointestinal: Normal bowel sounds, No tenderness Musculoskeletal: No tenderness Integumentary: Other (Abdominal wound and skin graft on the left lower extremity) Neurological: Normal speech, Normal tone, Normal affect Lymphatics: No axilla or inguinal lymphadenopathy - Studies Microbiology Data (last 24 hrs): 09/02/24 17:26 Blood - Blood Anaerobic Blood Culture - Final 09/02/24 16:41 Nasopharnyx Influenza Type A Antigen Screen - Final 09/02/24 16:41 Nasopharnyx Influenza Type B Antigen Screen - Final Medications List Reviewed: Yes Assessment & Plan - Problems (Diagnosis) (1) Status post skin graft Current Visit: Yes Status: Acute (2) Cellulitis of left lower extremity Current Visit: No Status: Acute (3) Congenital neutropenia Current Visit: No Status: Acute - Plan PLAN: 1. Continue with IV antibiotic 2. Continue with local wound care 3. Wound care consultation/surgical consultation with Lyndsey continue with wound care 4. Gentle IV hydration 5. Monitor CBC 6. Strict blood sugar monitoring 7. Pain control; patient with chronic pain and requires largest of the pain medication 8. GI and DVT prophylaxis Discharge Plan: Home Plan to discharge in: 48 Hours - Advance Directives Does patient have a Living Will: No Does patient have a Durable POA for Healthcare: No - Code Status/Comfort Care Code Status Assessed: Yes Code Status: Full Code Critical Care: No Time Spent Managing PTS Care (In Minutes): 30
[2024-09-03] MEDS: HYDROMORPHONE HCL 1 MG/ML INJ IV PRN (20:29)
[2024-09-04] MEDS: VANCOMYCIN 1.5 GM in NA CHLORIDE 0.9% 500 ML IVPB SCH (09:00)
[2024-09-04 11:15] LABS: Absolute Basophils 0.1 K/uL (0-0.5); Absolute Eosinophils 0.7 K/uL (0-0.5); Absolute Lymphocytes (CBC) 1.2 K/uL (0.7-4.9); Absolute Monocytes 3.3 K/uL (0.1-1.3); Absolute Neutrophil 0.2 K/uL (1.8-8.0); Basophils % 1.3 % (0-1.3); Eosinophils % 12.2 % (0-4.4); Hematocrit 24.9 % (39.6-49.0); Hemoglobin 7.6 g/dL (13.6-17.9); Lymphocytes % 22.6 % (15.3-44.8); MCHC 30.5 g/dL (32.0-36.0); MCV 78.8 fL (80-100); MPV 8.1 fL (7.6-11.3); Monocytes % 59.4 % (3.3-12.3); Neutrophils % 4.5 % (41.7-73.7); Platelets 314 thou/uL (152-406); RBC Red Blood Cell Count 3.16 M/uL (4.33-5.43); Red Cell Distribution Width 25.2 % (12.1-15.2)
[2024-09-04 11:33] LABS: Albumin 1.7 g/dL (3.4-5.0); Albumin/Globulin Ratio 0.3 (1.1-1.8); Bilirubin Total 0.4 mg/dL (0.2-1.0); Globulin 6.5 g/dL (2.3-3.5); Protein, Total 8.2 g/dL (6.4-8.2)
[2024-09-04 11:59] LABS: Anisocytosis 3+; Blood Morphology Comment NOTED (NOT SEEN); Differential Total Cells Count 100; Eosinophils 17 % (0-3); Lymphocytes 29 % (15-42); Monocytes 48 % (0-10); Platelet Estimate ADEQ; Segmented Neutrophils 4 % (40-80); Spherocyte 3+
--- NOTE | 2024-09-04 14:46 | P.PN ---
Date of Service: 09/04/24 Subjective Date of Service: 09/04/24 Continue with therapy at this time and evaluate patient status post Neupogen and repeat Vancomycin level. Will be discharged tomorrow after Vancomycin level reassessment. No need for futher abx. Review of Systems 10-point ROS is otherwise unremarkable Physical Examination - Vital Signs reviewed - Physical Exam General: Alert, In no apparent distress, Oriented x3 HEENT: Atraumatic, PERRLA, EOMI Neck: Supple, JVD not distended Respiratory: Clear to auscultation bilaterally, Normal air movement Cardiovascular: Regular rate/rhythm, Normal S1 S2 Gastrointestinal: Normal bowel sounds, No tenderness Musculoskeletal: No tenderness Integumentary: Other (Abdominal wound and skin graft on the left lower extremity) Neurological: Normal speech, Normal tone, Normal affect Lymphatics: No axilla or inguinal lymphadenopathy Assessment & Plan - Problems (Diagnosis) (1) Status post skin graft Current Visit: Yes Status: Acute (2) Cellulitis of left lower extremity Current Visit: No Status: Acute (3) Congenital neutropenia Current Visit: No Status: Acute (4) RICCI - Plan PLAN: 1. stop IV antibiotic, Vanco level high. Will recheck in am 2. Continue with local wound care 3. Wound care consultation/surgical consultation with Lyndsey, continue with wound care 4. Gentle IV hydration 5. Monitor CBC 6. Strict blood sugar monitoring 7. Pain control; patient with chronic pain 8. GI and DVT prophylaxis RICCI probably mutifactorial, + chronic pain medication in large quantities, volume depletion, frequent IV abx repeat Chem 7 and Vanco level in am Discharge Plan: Home Plan to discharge in: 24 Hours - Advance Directives Does patient have a Living Will: No Does patient have a Durable POA for Healthcare: No - Code Status/Comfort Care Code Status Assessed: Yes Code Status: Full Code Critical Care: No <Marycruz Lozano - Last Filed: 09/04/24 14:40> Patient was seen and examined. Events of the last 24 hours have been noted. Spoke with with DAGO regarding patient's clinical picture after evaluating and examining the patient independently. I performed a substantial part of the MDM during this patient's care today. I personally made or approved the documented management plan and acknowledge its risk of complications. I agree with the findings and documentation provided in the DAGO's notes. Patient doing better. Absolute neutrophil count up to 200. Repeat Neupogen again today. Check ANC in AM. If stabilizing Mcdaniel trough is stable and possible discharge home in the morning. <David Mcnamara - Last Filed: 09/04/24 17:52>
[2024-09-04] MEDS: TBO-FILGRASTIM 300 MCG/0.5 ML SYR SQ SCH (15:01)
--- NOTE | 2024-09-04 17:53 | RAD REPORT ---
EXAM: XR of the abdomen HISTORY: Abdominal pain abd pain COMPARISON: CT 04/01/2024 FINDINGS: XR of the abdomen shows a nonspecific, nonobstructive bowel gas pattern. Prominent distenti on of the stomach is noted. This appears to be filled with soft tissue density material which may be recently ingested. Cholelithiasis. The bones are unremarkable. IMPRESSION: Significant distention of the stomach filled with soft tissue material. Cholelithiasis.
[2024-09-04] MEDS: NA CHLORIDE 0.9% 500 ML IV ONE (17:54)
--- NOTE | 2024-09-04 17:58 | P.PN ---
Date of Service: 09/04/24 Patient was seen and examined. Events of the last 24 hours have been noted. Spoke with with DAGO regarding patient's clinical picture after evaluating and examining the patient independently. I performed a substantial part of the MDM during this patient's care today. I personally made or approved the documented management plan and acknowledge its risk of complications. I agree with the findings and documentation provided in the DAGO's notes. Patient doing better. Absolute neutrophil count up to 200. Repeat Neupogen again today. Check ANC in AM. If stabilizing Vanc trough is stable and possible discharge home in the morning. Patient also with RICCI. Most likely related to elevated Vanco trough. Will adjust medications and do a renal ultrasound as well.
--- NOTE | 2024-09-04 18:56 | RAD REPORT ---
EXAMINATION: US RENAL ULTRASOUND CLINICAL INDICATION: RICCI TECHNIQUE: Real-time ultrasonography of the abdomen was performed. COMPARISON: 03/26/2024 FINDINGS: RIGHT KIDNEY: Right renal length measurement: 10.3 x 5.4 cm. Normal in echogenicity and size. No calc ulus, solid mass or hydronephrosis. LEFT KIDNEY: Left renal length measurement: 11.1 x 6.1 cm. Normal in echogenicity and size. No calcul us, solid mass or hydronephrosis. URINARY BLADDER: Incompletely distended without gross abnormality detected. ADDITIONAL FINDINGS: None. IMPRESSION: Unremarkable renal ultrasound.
[2024-09-04] MEDS: LACTULOSE 20 GM/30 ML UCUP PO SCH (20:28)
[2024-09-04] MEDS: ALBUMIN HUMAN 25% 100 ML IV ONE (20:28)
[2024-09-05] MEDS: Meropenem 500 MG in NA CHLORIDE 0.9% 100 ML IV SCH (02:00)
[2024-09-05 06:45] LABS: Absolute Eosinophils 0.7 K/uL (0-0.5); Absolute Lymphocytes (CBC) 1.4 K/uL (0.7-4.9); Absolute Monocytes 3.7 K/uL (0.1-1.3); Eosinophils % 11.7 % (0-4.4); Hematocrit 24.6 % (39.6-49.0); Hemoglobin 7.5 g/dL (13.6-17.9); Lymphocytes % 23.8 % (15.3-44.8); MCH 24.3 pg (27.0-35.0); MCHC 30.3 g/dL (32.0-36.0); MCV 80.1 fL (80-100); MPV 8.6 fL (7.6-11.3); Monocytes % 63.8 % (3.3-12.3); Neutrophils % 0.7 % (41.7-73.7); Platelets 292 thou/uL (152-406); RBC Red Blood Cell Count 3.07 M/uL (4.33-5.43); Red Cell Distribution Width 25.2 % (12.1-15.2)
[2024-09-05 07:08] LABS: Anion Gap 9.8 mEq/L (5.0-15.0)
[2024-09-05 07:09] LABS: Potassium 5.8 mEq/L (3.5-5.1)
--- NOTE | 2024-09-05 07:24 | P.PN ---
Date of Service: 09/05/24 subjective reports intractable pain, as needed analgesia IV and po Review of Systems 10-point ROS is otherwise unremarkable Physical Examination - Vital Signs reviewed - Physical Exam General: Alert, Oriented x3, afebrile HEENT: Atraumatic, PERRLA, EOMI Neck: Supple, JVD not distended Respiratory: Clear to auscultation bilaterally, Normal air movement Cardiovascular: Regular rate/rhythm, Normal S1 S2 Gastrointestinal: Normal bowel sounds, nontender Musculoskeletal: No tenderness Integumentary: Other (Abdominal wound and skin graft on the left lower extremity) Neurological: Normal speech, Normal tone, Normal affect Lymphatics: No axilla or inguinal lymphadenopathy Assessment & Plan - Problems (Diagnosis) (1) Status post skin graft Current Visit: Yes Status: Acute (2) Cellulitis of left lower extremity Current Visit: No Status: Acute (3) Congenital neutropenia Current Visit: No Status: Acute (4) Acute kidney injury, acute renal failure Current Visit: No Status: Acute (5) hyperkalemia Current Visit: No Status: Acute (6) intractable pain Current Visit: No Status: Acute - Plan PLAN: 1. ID consulted for IV antibiotic recommendations 2. Continue with local wound care 3. Wound care consultation/surgical consultation with Lyndsey continue with wound care 4. Gentle IV hydration 5. Monitor CBC 6. Strict blood sugar monitoring 7. Pain control; patient with chronic pain and requires largest of the pain medication 8. GI and DVT prophylaxis 9. Nephrology consulted for RICCI on Vancomycin 10. Trend kidney function, monitor 11. prn analgesics Discharge Plan: Home Plan to discharge in: 48 Hours - Advance Directives Does patient have a Living Will: No Does patient have a Durable POA for Healthcare: No - Code Status/Comfort Care Code Status Assessed: Yes Code Status: Full Code Critical Care: No Time Spent Managing PTS Care (In Minutes): 35 <Shena Mark - Last Filed: 09/06/24 22:33> Patient was seen and examined. Events of the last 24 hours have been noted. Spoke with with DAGO regarding patient's clinical picture after evaluating and examining the patient independently. I performed a substantial part of the MDM during this patient's care today. I personally made or approved the documented management plan and acknowledge its risk of complications. I agree with the findings and documentation provided in the DAGO's notes. Patient doing better. Absolute neutrophil count up to 200. Repeat Neupogen ag ain today. Check ANC in AM. If stabilizing Vanc trough is stable and possible discharge home in the morning. Patient also with RICCI. Most likely related to elevated Vanco trough. Renal function has improved. Spoke with surgery and they wanted debridement prior to discharge <David Mcnamara - Last Filed: 09/09/24 19:34>
[2024-09-05 08:32] LABS: Eosinophils 16 % (0-3); Lymphocytes 28 % (15-42); Monocytes 53 % (0-10); Segmented Neutrophils 3 % (40-80)
[2024-09-05 08:33] LABS: Anisocytosis 2+; Blood Morphology Comment NOTED (NOT SEEN); Macrocytosis 1+; Microcytosis 1+; Platelet Estimate ADEQ
[2024-09-05 08:37] LABS: Differential Total Cells Count 100
[2024-09-05] MEDS ORDERED: VANCOMYCIN 1.5 GM in NA CHLORIDE 0.9% 500 ML IVPB SCH (09:00)
[2024-09-05 15:08] LABS: Phosphorus 5.7 mg/dL (2.5-4.9); Uric Acid 6.6 mg/dL (3.5-7.2)
--- NOTE | 2024-09-05 16:50 | RAD REPORT ---
EXAM: URINARY BLADDER ULTRASOUND CLINICAL INDICATION: Acute renal insufficiency TECHNIQUE: Sonographic evaluation of the bladder performed. FINDINGS: Prevoid bladder volume 161 cc No post void residual No ascites seen IMPRESSION; Prevoid bladder volume 161 cc No post void residual
--- NOTE | 2024-09-05 18:55 | CON ---
History Of Present Illness: This is a 33-year-old male with significant past medical history of [place] enital neutropenia, anemia, obstructive sleep apnea with morbid obesity, coming in with chronic left lower extremity wounds and poor healing. The patient has been having challenge with these wounds on his left leg and abdominal area for several months, being followed by the surgical team. The patient was admitted in addition for acute onset of febrile illness with chills. Also, complaint of left lo wer extremity pain. The patient had debridement done on August 02, 2024, and wound culture yielde d multidrug resistant Enterobacter cloacae and Pseudomonas aeruginosa. The patient is currently bein g treated with IV vancomycin and meropenem. Past Medical History: As per HPI. Social History: Nonsmoker, nondrinker. Family History: Noncontributory. Medications: Vancomycin and Merrem. See MARs for other medications. Allergies: SULFA DRUGS INCLUDING BACTRIM. Review of Systems: A 10-point review was performed. Physical Examination: General: This is a 33-year-old male, morbidly obese, lying in bed, in mild respiratory distress. Vital Signs: Temperature 97.9, pulse 107, respiration 23, blood pressure 107/58. HEENT: Unremarkable. Neck: Supple. Lungs: Basal crackles. Heart: S1, S2. Regular. Abdomen: Soft. Bowel sounds present. Obese. Extremities: Wounds at the right lower quadrant region and the groin area noted. Left leg wound not ed, being followed by surgical team. Laboratory Data: Shows WBC 5.8, up from 3.1; hemoglobin 7.5; platelets are 292. Blood cultures don e on 09/02, no growth in 24 hours. Assessment And Plan: This is a 33-year-old male with significant past medical history of congenital neutropenia and acute renal failure, currently being treated with Merrem and vancomycin. We will rec ommend to adjust antibiotic according to his kidney function. Continue current treatment and wound c are per surgical team. Prognosis is guarded. Continue supportive care. We will follow the patient as needed. Thank you Dr. Mcnamara for consult. NF/MODL Voice ID: [id number] Report ID: [id number]
--- NOTE | 2024-09-05 19:28 | RAD REPORT ---
EXAMINATION: CT ABDOMEN AND PELVIS WITHOUT CONTRAST CLINICAL INDICATION: aspen TECHNIQUE: CT abdomen and pelvis was performed, without IV contrast, as per department protocol. Axia l, sagittal and coronal reconstructions were obtained. One or more of the following dose reduction techniques were used: Automated exposure control, adjustment of the mA and kV according to the patien t size, and iterative reconstruction. Unless otherwise specified, incidental findings do not require dedicated imaging follow-up. COMPARISON: 04/01/2024 FINDINGS: The lack of intravenous contrast limits the sensitivity of this exam for evaluation of solid visceral organs, vascular structures, and retroperitoneum. LOWER CHEST: Mild linear atelectasis in both lung bases posteriorly. LIVER:Mild hepatomegaly. Cholelithiasis. SPLEEN: Normal size. No focal lesion. PANCREAS: No mass, ductal dilation, or aramis-pancreatic fluid. ADRENALS: Normal; no mass. KIDNEYS AND URETERS: Normal size and contour. No hydronephrosis. URINARY BLADDER: Normal contour. GASTROINTESTINAL TRACT: No evidence of bowel obstruction, significant free fluid, free air or abscess . Moderate stool is present throughout the colon. Small fat-containing umbilical hernia. APPENDIX: Appendix not visualized, but no inflammatory changes in region of appendix. LYMPH NODES: No lymphadenopathy. MUSCULOSKELETAL: No acute or suspicious osseous abnormality. ADDITIONAL FINDINGS: None. IMPRESSION: Mild hepatomegaly. Cholelithiasis.
[2024-09-05 23:34] LABS: Specific Gravity 1.016 (1.005-1.030); Sqamous Epithelial <5 /HPF (None Seen); Urine Bacteria <20 /HPF (<20); Urine Bilirubin NEGATIVE (Negative); Urine Blood 2+ (Negative); Urine Clarity Turbid (Clear); Urine Color Light-Yellow (Yellow); Urine Culture Reflex Order NOT NEEDED; Urine Glucose NEGATIVE (Negative); Urine Ketones NEGATIVE (Negative); Urine Micro Reflex YN NO BILL MICROSCOPIC; Urine Mucus Slight /HPF (None Seen); Urine Nitrite NEGATIVE (Negative); Urine Protein 1+ (Negative); Urine RBC 21-50 /HPF (None Seen); Urine Urobilinogen 1+ (Normal); Urine WBC <5 /HPF (<5); Urine WBC Clump Rare /HPF (None Seen); Urine pH 5.5 (5.0-7.0)
[2024-09-06 01:16] LABS: UR PROTEIN 110.7 mg/dL (<11.9); Urine Protein/Creatinine Ratio 0.81 ratio (<0.15)
--- NOTE | 2024-09-06 04:58 | CON ---
Date of Consultation: 09/05/2024 Chief Complaint: Acute kidney injury on chronic kidney disease, stage 3 History Of Present Illness: The patient is a 33-year-old man with significant past medical history o f congenital neutropenia, anemia, obstructive sleep apnea with morbid obesity. [facility] controlled nonhealing extremity wound. The patient has been followed by surgical team for lower extremity wounds. The patient was admitted to the hospital because of acute onset of febr ile illness and chills. He complained of left lower extremity pain. The patient had debridement don e on August 02, 2024, and wound culture revealed multidrug resistant Enterobacter cloacae and Pseu domonas aeruginosa. The patient is currently treated with IV vancomycin and meropenem. Nephrology c onsultation was requested because of abnormal renal function test. During this admission on September 03, creatinine level was 1.35 and BUN 22. On September 04, creatinine level was 3.21 and BUN 47. The patient vancomycin and IV fluids were started. Today, blood work showed potassium of 5.8, sodium 144, chloride 109, CO2 of 21, BUN 59, creatinine 3.68, glucose 125. The patient has borderli ne oliguric urine output. He had 600 mL urine per shift. He is started on IV fluids and he received Lokelma for hyperkalemia. Blood work is pending today. potassium level after Lokelma tr eatment. The patient had a CT scan per stone protocol and bladder ultrasound was done to rule out ur inary retention and radiology studies did not show an evidence of urinary retention. The patient den ies previous history of acute kidney injury. Renal ultrasound during this admission showed right kid lolis 10.3 x 5.4, normal in echogenicity and size. Left kidney length measuring 11.1 x 6.1, normal ech ogenicity. No calculi, no solid mass. Urinalysis although show microscopic hematuria, trace of keto juan carlos and workup was started microscopic hematuria. ANCA test was done and results are pending. Review of Systems: Constitutional: Denies fever, chills. Eyes: Denies vision changes. Ears, Nose, Mouth, and Throat: Denies sore throat, earache. Respiratory: Denies PND, orthopnea. Cardiovascular: Denies syncope, palpitation. GI: Denies nausea, vomiting. : Denies dysuria, hematuria. All other system reviewed and all are negative. Past Medical History: Obesity, obstructive sleep apnea, nonhealing lower extremity wound, anemia, co ngenital neutropenia, osteoarthritis. Social History: Denies tobacco, alcohol. Denies drugs. Physical Examination: General: The patient is awake, alert, follows commands. Vital Signs: Heart rate 107, blood pressure 107/58. HEENT: Atraumatic, normocephalic. Anicteric sclerae. Neck: Supple. Lungs: Basal crackles. Heart: S1, S2. 2/6 systolic murmur, left lower sternal border. Abdomen: Soft, benign, nontender, obese. Extremities: Right lower quadrant region and groin area wounds noted. Left leg wound noted, being f ollowed by surgical team. Laboratory Work: Showed blood culture done on September 02, no growth. Hemoglobin is 7.5, platelet count 292,000, white count 5800. Impression And Plan: The patient is 33-year-old man with past medical history of congenital neutrope brenda, acute renal failure. Currently being treated with meropenem and vancomycin for lower extremity ulcers. He will continue antibiotics. Infectious Disease is consulted to address his antibiotic. C ontinue current treatment with wound care per surgical team. We will continue IV fluids. Plan is __ if renal function does not improve in response to IV fluids. EB/MODL Voice ID: [id number] Report ID: [id number]
[2024-09-06 06:20] LABS: Absolute Eosinophils 0.6 K/uL (0-0.5); Absolute Lymphocytes (CBC) 1.6 K/uL (0.7-4.9); Absolute Monocytes 2.5 K/uL (0.1-1.3); Absolute Neutrophil 0.4 K/uL (1.8-8.0); Hematocrit 23.5 % (39.6-49.0); Hemoglobin 7.2 g/dL (13.6-17.9); Lymphocytes % 30.8 % (15.3-44.8); MCH 24.4 pg (27.0-35.0); MCHC 30.8 g/dL (32.0-36.0); MCV 79.1 fL (80-100); MPV 8.3 fL (7.6-11.3); Monocytes % 49.8 % (3.3-12.3); Neutrophils % 8.4 % (41.7-73.7); Nucleated Red Blood Cells % 0.1 % (0-0); Platelets 295 thou/uL (152-406); RBC Red Blood Cell Count 2.97 M/uL (4.33-5.43); Red Cell Distribution Width 26.1 % (12.1-15.2)
[2024-09-06 06:42] LABS: Albumin 1.9 g/dL (3.4-5.0); Albumin/Globulin Ratio 0.3 (1.1-1.8); Bilirubin Total 0.3 mg/dL (0.2-1.0); Globulin 6.1 g/dL (2.3-3.5); Magnesium 2.3 mg/dL (1.6-2.4)
[2024-09-06] MEDS ORDERED: VANCOMYCIN 1.5 GM in NA CHLORIDE 0.9% 500 ML IVPB SCH (09:00)
[2024-09-06] MEDS: NA CHLORIDE 0.9% 1,000 ML IV SCH (15:29)
--- NOTE | 2024-09-06 19:24 | PN ---
Date of Progress Note: 09/06/2024 Subjective: The patient was admitted with wound infection. The patient was placed on vancomycin. Has vancomycin toxicity with acute kidney injury. The patient started on hydration. Vancomycin held. Kidney function started improving. Physical Examination: Vital Signs: Blood pressure 146/57, pulse of 95. Chest: Clear to auscultation. Heart: S1, S2 regular. Abdomen: Morbidly obese. Could not appreciate any organomegaly. Extremities: No edema. Dressing on the wound. Neurologic: Alert. No focality. Laboratory Data: WBC 5.1, hemoglobin 7.2, sodium 136, potassium 5, bicarb 22, BUN 48, creatinine 2.6, GFR 31, calcium 9. Current Medications: The patient is on include; 1. Tylenol . 2. Meropenem. 3. IV fluid. 4. Zofran. Assessment And Plan: 1. Acute kidney injury secondary to vancomycin toxicity to toxic ATN, on the recovery, normal volume currently. I am going to decrease IV fluid to 50 per hour and we will monitor. Keep holding vancomycin. 2. Hypertension, controlled, optimal. Continue current treatment. 3. Hyperkalemia, recovered, resolved. 4. Acidosis secondary to renal failure, resolved. Keep holding bicarb. 5. Anemia of chronic kidney disease. I am going to go ahead and send for the workup and we will follow up. Time spent examining the patient [id number] reviewing data lab and the radiology placing order discussing the case with the patient/family member, discussing the case with the seam steamer including hospitalist and nursing staff more than 55 minutes CHERELLE Voice ID: [id number] Report ID: [id number] LUCIO
--- NOTE | 2024-09-06 23:28 | PN ---
Subjective: The patient is lying in bed. No new acute event. Chart reviewed. Objective: Vital Signs: Reviewed. Lungs: Basal crackles. Heart: S1, S2. Regular. Abdomen: Soft. Bowel sounds present. Obese. Extremities: Trace edema. Skin: Abdominal and leg wounds noted. Laboratory Data: Shows WBC 5.1, hemoglobin 7.2, platelets 295. BUN of 48, creatinine 2.68. Assessment And Plan: Left leg chronic ulceration, right abdominal wall wound also noted, being follo wed by surgical team. The patient is currently on meropenem, morbid obesity. Continue supportive ca re and wound care. Congenital neutropenia. We will follow the patient as needed. NF/MODL Voice ID: [id number] Report ID: [id number]
[2024-09-07 06:17] LABS: Percent Reticulocyte Count 0.6 % (0.4-2.05); RBC Red Blood Cell Count 2.73 M/uL (4.33-5.43)
[2024-09-07 06:40] LABS: Albumin 1.8 g/dL (3.4-5.0); Anion Gap 6.2 mEq/L (5.0-15.0); BUN Blood Urea Nitrogen 34 mg/dL (7-18); Bicarbonate 24 mEq/L (21-32); Ferritin 264.1 ng/mL (26-388); Glomerular Filtration Rate 58 ml/min (=/>90); Glucose Level 97 mg/dL (74-106); Phosphorus 5.9 mg/dL (2.5-4.9); Potassium 5.2 mEq/L (3.5-5.1); Sodium Level 138 mEq/L (136-145); Transferrin 121 mg/dL (200-360); Uric Acid 6.6 mg/dL (3.5-7.2)
[2024-09-07 07:02] LABS: Creatine Phosphokinase < 15 U/L (39-308)
--- NOTE | 2024-09-07 07:35 | P.PN ---
Date of Service: 09/07/24 subjective Chronic pain, was oversedated for started today, adjusted pain medication Review of Systems 10-point ROS is otherwise unremarkable Physical Examination - Vital Signs reviewed - Physical Exam General: Alert, Oriented x3, afebrile HEENT: Atraumatic, PERRLA, EOMI Neck: Supple, JVD not distended Respiratory: Clear to auscultation bilaterally, Normal air movement Cardiovascular: Regular rate/rhythm, Normal S1 S2 Gastrointestinal: Normal bowel sounds, nontender Musculoskeletal: No tenderness Integumentary: Other (Abdominal wound and skin graft on the left lower extremity) Neurological: Normal speech, Normal tone, Normal affect Lymphatics: No axilla or inguinal lymphadenopathy Assessment & Plan - Problems (Diagnosis) (1) Status post skin graft Current Visit: Yes Status: Acute (2) Cellulitis of left lower extremity Current Visit: No Status: Acute (3) Congenital neutropenia Current Visit: No Status: Acute (4) Acute kidney injury, acute renal failure Current Visit: No Status: Acute (5) hyperkalemia Current Visit: No Status: Acute (6) intractable pain Current Visit: No Status: Acute - Plan PLAN: 1. ID consulted for IV antibiotic recommendations 2. Continue with local wound care 3. Wound care consultation/surgical consultation with Lyndsey continue with wound care 4. Gentle IV hydration 5. Monitor CBC 6. Strict blood sugar monitoring 7. Pain control; patient with chronic pain and requires largest of the pain medication 8. GI and DVT prophylaxis 9. Nephrology consulted for RICCI on Vancomycin 10. Trend kidney function, monitor 11. prn analgesics Discharge Plan: Home Plan to discharge in: 48 Hours - Advance Directives Does patient have a Living Will: No Does patient have a Durable POA for Healthcare: No - Code Status/Comfort Care Code Status Assessed: Yes Code Status: Full Code Critical Care: No Time Spent Managing PTS Care (In Minutes): 35 <Shena Mark - Last Filed: 09/07/24 21:24> Patient was seen and examined. Events of the last 24 hours have been noted. Spoke with with DAGO regarding patient's clinical picture after evaluating and examining the patient independently. I performed a substantial part of the MDM during this patient's care today. I personally made or approved the documented management plan and acknowledge its risk of complications. I agree with the findings and documentation provided in the DAGO's notes. Patient doing better. Absolute neutrophil count up to 200. Repeat Neupogen again today. Check ANC in AM. If stabilizing Vanc trough is stable and possible discharge home in the morning. Patient also with RICCI. Most likely related to elevated Vanco trough. Renal function has improved. Spoke with surgery and they wanted debridement prior to discharge <David Mcnamara - Last Filed: 09/09/24 19:34>
[2024-09-07] MEDS: SOD POLYSTYREN SUL 15 GM/60 ML UCUP PO ONE (08:10)
[2024-09-07] MEDS ORDERED: Oxycodone HCl/Acetaminophen 5/325 MG TAB PO PRN ×2 (09:25→18:44)
[2024-09-07] MEDS: HYDROMORPHONE HCL 0.5 MG/0.5 ML INJ IV ONE (09:38)
[2024-09-07] MEDS: FUROSEMIDE 20 MG/ 2ML VIAL IV ONE (10:30)
[2024-09-07] MEDS: ACETAMINOPHEN 500 MG TAB PO ONE (11:20)
[2024-09-07 12:37] LABS: Absolute Eosinophils 0.6 K/uL (0-0.5); Absolute Lymphocytes (CBC) 1.3 K/uL (0.7-4.9); Absolute Monocytes 2.2 K/uL (0.1-1.3); Absolute Neutrophil 1.2 K/uL (1.8-8.0); Basophils % 0.1 % (0-1.3); Eosinophils % 11.7 % (0-4.4); Hematocrit 21.7 % (39.6-49.0); Hemoglobin 6.8 g/dL (13.6-17.9); MCH 24.6 pg (27.0-35.0); MCHC 31.4 g/dL (32.0-36.0); MCV 78.1 fL (80-100); MPV 8.4 fL (7.6-11.3); Monocytes % 41.6 % (3.3-12.3); Neutrophils % 22.6 % (41.7-73.7); Nucleated Red Blood Cells % 0.1 % (0-0); Platelets 312 thou/uL (152-406); RBC Red Blood Cell Count 2.77 M/uL (4.33-5.43); Red Cell Distribution Width 26.3 % (12.1-15.2)
--- NOTE | 2024-09-07 15:00 | EKG ---
Test Date: 2024-09-02 Test Time: 17:37:01 Rehabilitation Counselor: BILLY MEASUREMENT RESULTS: Intervals: Rate: 101 SC: 144 QRSD: 80 QT: 386 QTc: 500 [place]: P: 58 SC: 144 QRS: 51 T: 20 INTERPRETIVE STATEMENTS: Sinus tachycardia Nonspecific T wave abnormality Abnormal ECG Compared to ECG 07/31/2024 22:22:40 T-wave abnormality now present Prolonged QT interval no longer present Electronically Signed On 09-07-24 14:49:21 CDT by Reno Mendiola
[2024-09-07] MEDS: HYDROMORPHONE HCL 1 MG/ML INJ IV PRN ×2 (15:38→21:44)
--- NOTE | 2024-09-07 16:40 | PN ---
Date of Progress Note: 09/07/2024 Subjective: The patient was admitted with the cellulitis. The patient had acute kidney injury secondary to toxic ATN secondary to vancomycin toxicity. Patient on the recovery. Patient eating better. IV fluid has been discontinued. Objective: Vital Signs: Blood pressure 143/64, pulse of 70, afebrile. Chest: Clear to auscultation. Heart: S1, S2. Regular. Abdomen: Morbidly obese. Could not appreciate any organomegaly. Extremities: Plus edema. Scrotal swelling. Neurologic: Alert. No focality. Laboratory Data: Hemoglobin 7.2, sodium 138, potassium 5.2, bicarb 24, BUN 34, creatinine 1.5, GFR 58, calcium 8.7, phosphorus 5.9. Iron saturation 11, ferritin 264. Serum protein electrophoresis still pending. PTH is still pending. PC ratio 0.8. CT abdomen ruled out any obstruction. Renal ultrasound show normal size kidney 10.3/11.1. Assessment And Plan: 1. Acute kidney injury secondary to toxic acute tubular necrosis secondary to vancomycin toxicity, on the recovery, nonoliguric, slightly on the wet side. I am going to go ahead and give the patient a single dose of Lasix and we will follow up. 2. Hypertension, controlled, optimal. Continue current treatment. Add Lasix. 3. Anasarca, minimal. Proteinuria mostly secondary to IV fluid. Discontinue IV fluid. We will give single dose of Lasix 20 mg. 4. Skin graft infection and cellulitis. Follow up with the ID and Surgery. Time spent examining the patient [id number] reviewing data lab and the radiology placing order discussing the case with the patient/family member, discussing the case with the team assistant including hospitalist and nursing staff more than 55 minutes CHERELLE Voice ID: [id number] Report ID: [id number] LUCIO
--- NOTE | 2024-09-07 19:51 | RAD REPORT ---
EXAMINATION: ONE VIEW CHEST XR CLINICAL INDICATION: dyspnea TECHNIQUE: Frontal chest projection is submitted. Examination is limited by patient positioning and t echnique. COMPARISON: 09/02/2024 FINDINGS: Mild pulmonary edema suspected. The cardiac silhoutte is severely enlarged in size. No displaced frac tures identified. IMPRESSION: Bilateral pulmonary opacities likely mild pulmonary edema. Pneumonia would be a secondary considerati on.
[2024-09-07] MEDS: Meropenem 1,000 MG in NA CHLORIDE 0.9% 100 ML IV SCH (21:45)
[2024-09-08 06:05] LABS: Albumin 1.8 g/dL (3.4-5.0); Anion Gap 5.7 mEq/L (5.0-15.0); Phosphorus 3.9 mg/dL (2.5-4.9); Potassium 4.7 mEq/L (3.5-5.1)
[2024-09-08 11:11] LABS: C-ANCA Anti-Proteinase 3 <1.0 AI (<1.0); P-ANCA Anti-Myeloperoxidase Ab <1.0 AI (<1.0)
[2024-09-08 12:00] LABS: Absolute Basophils 0.1 K/uL (0-0.5); Absolute Eosinophils 0.4 K/uL (0-0.5); Absolute Lymphocytes (CBC) 1.7 K/uL (0.7-4.9); Absolute Neutrophil 1.1 K/uL (1.8-8.0); Basophils % 1.5 % (0-1.3); Eosinophils % 8.5 % (0-4.4); Hematocrit 22.7 % (39.6-49.0); Hemoglobin 7.2 g/dL (13.6-17.9); Lymphocytes % 32.2 % (15.3-44.8); MCH 24.4 pg (27.0-35.0); MCHC 31.9 g/dL (32.0-36.0); MCV 76.4 fL (80-100); MPV 8.1 fL (7.6-11.3); Monocytes % 37.7 % (3.3-12.3); Neutrophils % 20.1 % (41.7-73.7); Platelets 292 thou/uL (152-406); RBC Red Blood Cell Count 2.97 M/uL (4.33-5.43); Red Cell Distribution Width 25.2 % (12.1-15.2)
[2024-09-08] MEDS: NA CHLORIDE 0.9% 500 ML ONE (12:15)
[2024-09-08] MEDS: LIDOCAINE HCL/EPINEPHRINE 20 ML MDV ONE (12:23)
[2024-09-08] MEDS: HYDROMORPHONE HCL 1 MG/ML INJ ONE ×2 (12:55→15:11)
[2024-09-08] MEDS ORDERED: MIDAZOLAM HCL 2 MG/2 ML INJ ONE (13:00)
[2024-09-08] MEDS ORDERED: ONDANSETRON 4 MG/2 ML VIAL ONE (13:00)
[2024-09-08] MEDS ORDERED: propofoL 200 MG/20 ML VIAL IV ONE (13:00)
[2024-09-08] MEDS ORDERED: LIDOCAINE 2% MPF 5 ML VIAL ONE (13:00)
[2024-09-08] MEDS ORDERED: FENTANYL CITR 100 MCG/2 ML ONE (13:00)
[2024-09-08] MEDS: dexAMETHasone 10 MG/ML VIAL ONE (13:20)
[2024-09-08] MEDS: EPINEPHRINE 1 MG/ML VIAL ONE (13:20)
[2024-09-08] MEDS: ROPLVACAINE HCL 40 ML ONE (13:24)
[2024-09-08] MEDS ORDERED: dexAMETHasone 10 MG/ML VIAL ONE (13:53)
[2024-09-08] MEDS: LIDOCAINE HCL/EPINEPHRINE 20 ML MDV SQ ONE (14:08)
[2024-09-08] MEDS: LIDOCAINE JELLY 2% 5 ML SYRINGE TOP ONE ×2 (14:09→14:18)
--- NOTE | 2024-09-08 14:20 | P.OP ---
Preoperative diagnosis: Chronic Wound of LEFT Calf Postoperative diagnosis: Chronic Wound of LEFT Calf Primary procedure: Debridement of Chronic Wound of LEFT Calf Anesthesia: GETA Estimated blood loss: <20cc Specimen: Debridement Tissue Findings: slough @ periphery, no infection Complications: None Implants: none Transferred to: Recovery Room Condition: Good
--- NOTE | 2024-09-08 17:19 | PN ---
Date of Progress Note: 09/08/2024 Subjective: The patient was admitted to the hospital with cellulitis, infected graft. The patient had acute kidney injury secondary to vanc toxicity. The patient's vanc stopped, started on hydration. Kidney function normalized. The patient has some swelling. We gave him Lasix yesterday. Physical Examination: Vital Signs: Blood pressure of 158/81, pulse of 81. Chest: Decreased entry bilateral base. Heart: S1, S2. Regular. Abdomen: Soft. Morbidly obese. Could not appreciate any organomegaly. Extremities: Dressing on the left leg. +1 edema. Neuro: Alert. No focality. Laboratory Data: WBC 5.2, hemoglobin 7.2. Sodium 137, potassium 4.7, bicarb 29, BUN 23, creatinine 1.2, GFR of 80, calcium 8.9. Iron saturation 11, ferritin 264. Current Medications: The patient on include meropenem, Tylenol, simethicone. Assessment And Plan: 1. Acute kidney injury secondary to vanc toxicity, recovered, resolved. 2. Hypertension. We will start the patient on Lasix. We will follow up response. 3. Iron-deficiency anemia. I will avoid any IV iron given the active infection. 4. Cellulitis. Graft infection as by Surgery and primary. Time spent examining the patient [id number] reviewing data lab and the radiology placing order discussing the case with the patient/family member, discussing the case with the rn team leader including hospitalist and nursing staff more than 55 minutes CHERELLE Voice ID: [id number] Report ID: [id number] LUCIO
--- NOTE | 2024-09-08 20:46 | PN ---
Date of Progress Note: 09/07/2024 Subjective: The patient was lying in bed. Denies any headaches, nausea, vomiting, chest pain, abdom inal pain, constipation, or diarrhea. Objective: Vital Signs: Reviewed. Lungs: Basal crackles. Heart: S1, S2. Regular. Abdomen: Soft, nontender. Bowel sounds present. Obese. Extremities: Trace edema. Wounds noted. Laboratory Data: Reviewed. Assessment And Plan: Chronic ulceration of the left leg and abdominal wound being followed by surgic al team. The patient currently on meropenem, continue antibiotic for empiric treatment. We will fol low the patient as needed. NF/MODL Voice ID: [id number] Report ID: [id number]
--- NOTE | 2024-09-09 00:16 | OP ---
Date of Procedure: 09/08/2024 Surgeon: Clyde Solorio MD, Preoperative Diagnosis: Chronic wound of left calf. Postoperative Diagnosis: Chronic wound of left calf. Procedure Performed: Debridement of chronic wound, left calf. Anesthesia: General endotracheal plus regional anesthesia. Estimated Blood Loss: Less than 20 cc. Specimen: Debridement tissue. Findings: There was slough at the periphery of the wound. Central area wound was clean with good gr anulation tissue. However, periphery had some slough circumferentially around the area. No obvious infection noted throughout the procedure. No collections. No necrosis. The wound extended just int o the fat adipose plane. Complications: None. Implants: None. Disposition: The patient was transferred to recovery room in good condition. Procedure In Detail: After informed consent was obtained, the patient was brought to the operating r oom, prepped and draped in the usual sterile fashion. After adequate anesthesia was achieved, I used a curette to debride circumferentially around the area of the chronic wound calf, circumferentially around the area into the subdermal plane of adipose tissue into the granulation tissue. There was si gnificant slough over the top of the periphery of the wound. However, the central portion of the wou nd was predominantly clean without evidence of any infection or significant findings. There was good , healthy, red, beefy, well-vascularized granulation tissue in the central portion. This left of the periphery was debrided sharply using predominantly curette. The entire wound was then pulse lavaged until completely clear. I then placed lidocaine 2% jelly over the top, Adaptic and a sterile dressi ng was placed over the top, which was Kerlix damp to dry and the lower extremities wrapped, elevated, and a sterile dressing was secured at this point as described above. The patient tolerated the proc edure well without incident or complication, transferred to PACU in good condition. All counts were correct at the end of the case. NAEL/MODL Voice ID: [id number] Report ID: [id number]
[2024-09-09 07:10] LABS: Absolute Lymphocytes (CBC) 0.6 K/uL (0.7-4.9); Absolute Monocytes 0.6 K/uL (0.1-1.3); Absolute Neutrophil 0.7 K/uL (1.8-8.0); Eosinophils % 0.1 % (0-4.4); Hematocrit 24.7 % (39.6-49.0); Hemoglobin 7.9 g/dL (13.6-17.9); Lymphocytes % 31.6 % (15.3-44.8); MCH 24.6 pg (27.0-35.0); MCHC 31.9 g/dL (32.0-36.0); Monocytes % 30.6 % (3.3-12.3); Neutrophils % 35.7 % (41.7-73.7); Platelets 265 thou/uL (152-406); Red Cell Distribution Width 25.3 % (12.1-15.2)
[2024-09-09 07:52] LABS: Albumin 1.8 g/dL (3.4-5.0); Albumin/Globulin Ratio 0.3 (1.1-1.8); Anion Gap 9.3 mEq/L (5.0-15.0); Bilirubin Total 0.2 mg/dL (0.2-1.0); Globulin 6.1 g/dL (2.3-3.5); Protein, Total 7.9 g/dL (6.4-8.2)
[2024-09-09 07:55] LABS: Potassium 5.3 mEq/L (3.5-5.1)
[2024-09-09 07:56] LABS: Magnesium 1.8 mg/dL (1.6-2.4)
[2024-09-09] MEDS: TBO-FILGRASTIM 300 MCG/0.5 ML SYR SQ SCH (09:00)
[2024-09-09 09:03] LABS: Albumin 1.9 g/dL (3.4-5.0); Anion Gap 8.1 mEq/L (5.0-15.0); Phosphorus 1.9 mg/dL (2.5-4.9)
[2024-09-09 09:05] LABS: Potassium 5.1 mEq/L (3.5-5.1)
[2024-09-09 10:17] LABS: Differential Total Cells Count 100; Lymphocytes 38 % (15-42); Monocytes 16 % (0-10); Segmented Neutrophils 46 % (40-80); Toxic Granulation 1+
[2024-09-09 10:18] LABS: Anisocytosis 2+; Blood Morphology Comment NOTED (NOT SEEN); Hypochromasia 1+; Microcytosis 1+; Platelet Estimate ADEQ
[2024-09-09] MEDS: SOD POLYSTYREN SUL 15 GM/60 ML UCUP PO ONE (14:30)
--- NOTE | 2024-09-09 14:43 | P.DS ---
Admission Date: 09/02/24 Discharge Date: 09/10/24 Disposition: [facility] HOME/HOME HEALTH CARE Discharge Condition: FAIR Reason for Admission: LLE wound cellulitis Brief History of Present Illness: Patient is a 33-year-old male with a past medical history of congenital neutropenia, anemia and obstructive sleep apnea. He also has a history of chronic left lower extremity wound that has been poorly healing. This has been managed with graft. Patient is known to general surgery and follows up with Dr. Murillo. He is here with an acute onset of febrile illness associated with chills. Patient is also developed left lower extremity pain. He had a debridemnt with surgery on 08/02/2024. Wound culture yielded multidrug- resistant Enterobacter cloacae and Pseudomonas aeruginosa. The above organisms were sensitive to meropenem and levofloxacin. - Physical Exam General: In no apparent distress, Obese HEENT: Atraumatic, Normocephalic Respiratory: Clear to auscultation bilaterally, Normal air movement Cardiovascular: No edema, Regular rate/rhythm, Normal S1 S2 Integumentary: Other (LLE wrapped) Neurological: Normal speech Hospital Course: 33-year-old male with a past medical history of congenital neutropenia, anemia and obstructive sleep apnea. He also has a history of chronic left lower extremity wound that has been poorly healing. This has been managed with graft. Patient is known to general surgery and follows up with Dr. Murillo. He is here with an acute onset of febrile illness associated with chills. Patient is also developed left lower extremity pain. He had a debridemnt with surgery on 08/02/2024. Wound culture yielded multidrug-resistant Enterobacter cloacae and Pseudomonas aeruginosa. The above organisms were sensitive to meropenem and levofloxacin. He was seen by surgery. 09/08 Debridement of chronic wound, left calf by Dr Solorio . Discharge home with home health, with PT, [facility], for discharge Assessment History of the skin graft-status post incision and drainage left lower extremity Debridement of chronic wound, left calf by Dr Solorio Cellulitis of the left lower extremity Congenital neutropenia Microbiology Influenza AMB negative Blood culture no growth in 5 days Continue home medicines as previously prescribed GOAL: Clear understanding of disease process INSTRUCTIONS: Physician Discharge Instructions: -Follow-up with Dr. Solorio after discharge, call office for -Follow-up with PCP in 1 to 2 weeks -Please call Dr. Mcnamara at [phone] if any questions regarding hospital stay -Please call nursing station at [phone] if any nursing or medication questions -Return to the emergency room if symptoms worsen Diet: ADA, low sodium Activity: Fall precautions Vital Signs/Physical Exam: Temp Pulse Resp BP Pulse Ox 97.7 F 64 16 143/65 H 97 09/09/24 12:00 09/09/24 12:00 09/09/24 13:56 09/09/24 12:00 09/09/24 13:56 Laboratory Data at Discharge: WBC 1.90 thou/uL (4.3-10.9) L 09/09/24 06:38 Hgb 7.9 g/dL (13.6-17.9) L D 09/09/24 06:38 Hct 24.7 % (39.6-49.0) L 09/09/24 06:38 Plt Count 265 thou/uL (152-406) 09/09/24 06:38 Sodium 134 mEq/L (136-145) L 09/09/24 06:38 Potassium 5.3 mEq/L (3.5-5.1) H 09/09/24 06:38 BUN 22 mg/dL (7-18) H 09/09/24 06:38 Creatinine 1.33 mg/dL (0.70-1.30) H 09/09/24 06:38 Glucose 379 mg/dL (74-106) H 09/09/24 06:38 Uric Acid 6.6 mg/dL (3.5-7.2) 09/07/24 05:55 Phosphorus 1.9 mg/dL (2.5-4.9) L 09/09/24 06:05 Magnesium 1.8 mg/dL (1.6-2.4) 09/09/24 06:38 Total Bilirubin 0.2 mg/dL (0.2-1.0) 09/09/24 06:38 AST 20 U/L (15-37) 09/09/24 06:38 ALT 19 U/L (16-61) 09/09/24 06:38 Alkaline Phosphatase 101 U/L (45-117) 09/09/24 06:38 Home Medications: Hydrocodone 10/APAP 325 [[place] 10/325] 1 tab PO Q12HR PRN 09/02/24 Naproxen 500 mg PO BID 09/02/24 methocarbamoL [Robaxin] 750 mg PO BID 09/02/24 Doxycycline Hyclate 100 mg PO BID 7 Days #14 tab 09/10/24 New Medications: Doxycycline Hyclate 100 mg PO BID 7 Days #14 tab Physician Discharge Instructions: PROBLEM: Left lower extremity wound, cellulitis GOAL: Clear understanding of disease process INSTRUCTIONS: Diet: Low sodium Activity: Fall precautions 33-year-old male with a past medical history of congenital neutropenia, anemia and obstructive sleep apnea. He also has a history of chronic left lower extremity wound that has been poorly healing. This has been managed with graft. Patient is known to general surgery and follows up with Dr. Murillo. He is here with an acute onset of febrile illness associated with chills. Patient is also developed left lower extremity pain. He had a debridemnt with surgery on 08/02/2024. Wound culture yielded multidrug-resistant Enterobacter cloacae and Pseudomonas aeruginosa. The above organisms were sensitive to meropenem and levofloxacin. He was seen by surgery. 09/08 Debridement of chronic wound, left calf by Dr Solorio . Discharge home with home health, with PT, [facility], for discharge Assessment History of the skin graft-status post incision and drainage left lower extremity Debridement of chronic wound, left calf by Dr Solorio Cellulitis of the left lower extremity Congenital neutropenia Microbiology Influenza AMB negative Blood culture no growth in 5 days Continue home medicines as previously prescribed GOAL: Clear understanding of disease process INSTRUCTIONS: Physician Discharge Instructions: -Follow-up with Dr. Solorio after discharge, call office for -Follow-up with PCP in 1 to 2 weeks -Please call Dr. Mcnamara at [phone] if any questions regarding hospital stay -Please call nursing station at [phone] if any nursing or medication questions -Return to the emergency room if symptoms worsen Diet: ADA, low sodium Activity: Fall precautions Followup: Clyde Sloorio MD [ACTIVE - CAN ADMIT] - NONE,NONE [Primary Care Provider] -
--- NOTE | 2024-09-09 15:53 | P.PN ---
Date of Service: 09/09/24 subjective Reported weakness, will work with physical therapy today, Afebrile overnight Review of Systems 10-point ROS is otherwise unremarkable Physical Examination - Vital Signs reviewed - Physical Exam General: Alert, Oriented x3, afebrile HEENT: Atraumatic, PERRLA, EOMI Neck: Supple, JVD not distended Respiratory: Clear to auscultation bilaterally, Normal air movement Cardiovascular: Regular rate/rhythm, Normal S1 S2 Gastrointestinal: Normal bowel sounds, nontender Musculoskeletal: No tenderness Integumentary: Other (Abdominal wound and skin graft on the left lower extremity) Neurological: Normal speech, Normal tone, Normal affect Lymphatics: No axilla or inguinal lymphadenopathy Assessment & Plan - Problems (Diagnosis) (1) Status post skin graft Current Visit: Yes Status: Acute (2) Cellulitis of left lower extremity Current Visit: No Status: Acute (3) Congenital neutropenia Current Visit: No Status: Acute (4) Acute kidney injury, acute renal failure Current Visit: No Status: Acute (5) hyperkalemia Current Visit: No Status: Acute (6) intractable pain Current Visit: No Status: Acute - Plan PLAN: 1. ID consulted for IV antibiotic recommendations 2. Continue with local wound care 3. Wound care consultation/surgical consultation with Lyndsey continue with wound care 4. Gentle IV hydration 5. Monitor CBC 6. Strict blood sugar monitoring 7. Pain control; patient with chronic pain and requires largest of the pain medication 8. GI and DVT prophylaxis 9. Nephrology consulted for RICCI on Vancomycin 10. Trend kidney function, monitor 11. prn analgesics 12. Discharge Plan: Home Plan to discharge in: 48 Hours - Advance Directives Does patient have a Living Will: No Does patient have a Durable POA for Healthcare: No - Code Status/Comfort Care Code Status Assessed: Yes Code Status: Full Code Critical Care: No Time Spent Managing PTS Care (In Minutes): 35 <Shena Mark - Last Filed: 09/09/24 15:40> Patient was seen and examined. Events of the last 24 hours have been noted. Spoke with with [facility]AGO regarding patient's clinical picture after evaluating and examining the patient independently. I performed a substantial part of the MDM during this patient's care today. I personally made or approved the documented management plan and acknowledge its risk of complications. I agree with the findings and documentation provided in the DAGO's notes. Patient doing better. Absolute neutrophil count >500. Repeat Neupogen again today. Check ANC in AM. Renal function has improved. Spoke with surgery s/p debridement. Possible DC soon. <David Mcnamara - Last Filed: 09/09/24 19:42>
--- NOTE | 2024-09-09 19:39 | P.PN ---
Date of Service: 09/06/24 Subjective Patient still having pain. Patient still not feeling well. Patient needing debridement of wound per surgery. Monitoring after neutrophil count as well. Renal function worsened so we will hydrate gently. Physical Examination - Vital Signs Reviewed - Physical Exam General: Alert, In no apparent distress, Oriented x3 Respiratory: Clear to auscultation bilaterally, Normal air movement Cardiovascular: Regular rate/rhythm, Normal S1 S2 Gastrointestinal: Normal bowel sounds, No tenderness Musculoskeletal: No tenderness Integumentary: Other (Abdominal wound and skin graft on the left lower extremity) Neurological: No focal deficits Assessment & Plan - Problems (Diagnosis) (1) Status post skin graft Current Visit: Yes Status: Acute (2) Cellulitis of left lower extremity Current Visit: No Status: Acute (3) Congenital neutropenia Current Visit: No Status: Chronic (4) RICCI Current Visit: No Status: Acute - Plan Continue with POC as mentioned below: 1. Continue with IV antibiotic 2. Continue with local wound care 3. Wound care consultation/surgical consultation with Lyndsey continue with wound care 4. Gentle IV hydration and monitor renal function 5. Monitor CBC 6. Continue with Neupogen; monitor ANC 7. Pain control; patient with chronic pain and requires largest of the pain medication 8. GI and DVT prophylaxis Discharge Plan: Home Plan to discharge in: 48 Hours
--- NOTE | 2024-09-09 19:41 | P.PN ---
Date of Service: 09/08/24 Subjective Patient is doing well with no new complaints; clinical symptoms are improved. Possible DC home in the next 24-48hrs; s/p debridement Physical Examination - Vital Signs Reviewed - Physical Exam General: Alert, In no apparent distress, Oriented x3 Respiratory: Clear to auscultation bilaterally, Normal air movement Cardiovascular: Regular rate/rhythm, Normal S1 S2 Gastrointestinal: Normal bowel sounds, No tenderness Musculoskeletal: No tenderness Integumentary: Other (Abdominal wound and skin graft on the left lower extremity) Neurological: No focal deficits Assessment & Plan - Problems (Diagnosis) (1) Status post skin graft with debridement Current Visit: Yes Status: Acute (2) Cellulitis of left lower extremity Current Visit: No Status: Acute (3) Congenital neutropenia Current Visit: No Status: Chronic (4) RICCI Current Visit: No Status: Acute - Plan Continue with POC as mentioned below: 1. Continue with IV antibiotic 2. Continue with local wound care 3. Wound care consultation/surgical consultation with Lyndsey continue with wound care 4. Gentle IV hydration and monitor renal function; improved 5. Monitor CBC 6. Continue with Neupogen; monitor ANC 7. Pain control; patient with chronic pain and requires largest of the pain medication 8. GI and DVT prophylaxis Discharge Plan: Home Plan to discharge in: 48 Hours
--- NOTE | 2024-09-09 22:12 | PN ---
Date of Progress Note: 09/09/2024 Subjective: The patient was admitted to the hospital with cellulitis, infected graft. Vancomycin wa s stopped due to vancomycin toxicity. The patient had severe acute kidney injury secondary to vancom ycin toxicity and volume depletion. He developed hyperazotemia. He has nonoliguric acute kidney inj ury. Kidney function improved. IV fluids were tolerated. Patient developed some shortness of breat h and was treated with Lasix. Today, he is feeling better. He denies PND orthopnea. Physical Examination: Lungs: Few crackles. Heart: S1, S2. Abdomen: Soft, benign. Extremities: 1+ edema. Laboratory Data: Sodium 137, potassium 4.7, bicarbonate 29, BUN 23, creatinine 1.2. Impression And Plan: 1.Acute kidney injury secondary to vancomycin toxicity. Renal function improved, recovered to basel ine. 2.Hypertension. Continue blood pressure medication. IV Lasix was started for peripheral edema and volume overload. 3.Iron-deficiency anemia. Patient may need blood transfusion. 4.Cellulitis. Continue antibiotics. For graft infection, surgical team is following. CEE/MODL Voice ID: [id number] Report ID: [id number]
[2024-09-10 06:22] LABS: Albumin 1.9 g/dL (3.4-5.0); Magnesium 1.9 mg/dL (1.6-2.4); Phosphorus 3.3 mg/dL (2.5-4.9)
[2024-09-10 07:57] VITALS: O2SAT 100
[2024-09-10] MEDS: TBO-FILGRASTIM 300 MCG/0.5 ML SYR SQ SCH (09:00)
[2024-09-10] MEDS: ENSURE MAX PROTEIN 330 ML LIQUID PO SCH (09:00)
[2024-09-10 09:06] LABS: Absolute Eosinophils 0.1 K/uL (0-0.5); Absolute Lymphocytes (CBC) 2.3 K/uL (0.7-4.9); Absolute Monocytes 1.9 K/uL (0.1-1.3); Absolute Neutrophil 3.3 K/uL (1.8-8.0); Basophils % 0.6 % (0-1.3); Eosinophils % 0.8 % (0-4.4); Hematocrit 25.9 % (39.6-49.0); Lymphocytes % 29.8 % (15.3-44.8); MCH 23.9 pg (27.0-35.0); MCHC 30.7 g/dL (32.0-36.0); MCV 77.8 fL (80-100); MPV 8.8 fL (7.6-11.3); Monocytes % 25.5 % (3.3-12.3); Neutrophils % 43.3 % (41.7-73.7); Platelets 313 thou/uL (152-406); RBC Red Blood Cell Count 3.33 M/uL (4.33-5.43); Red Cell Distribution Width 25.6 % (12.1-15.2)
[2024-09-10 09:09] VITALS: TEMP 97.6
[2024-09-10 10:37] LABS: Anisocytosis 2+; Blood Morphology Comment NOTED (NOT SEEN); Hypochromasia 1+; Microcytosis 1+; Platelet Estimate ADEQ; Toxic Granulation 1+; White Blood Cell Scan OK (OK)
[2024-09-10 12:55] VITALS: BP 140/52
[2024-09-10 16:31] LABS: Abnormal Protein Band 1 REPORT; Albumin, (SPE) 2.3 g/dL (3.8-4.8); Alpha-1-Globulins 0.5 g/dL (0.2-0.3); Alpha-2-Globulins 0.8 g/dL (0.5-0.9); Beta 1 Globulin 0.4 g/dL (0.4-0.6); Gamma Globulins 2.3 g/dL (0.8-1.7); INTERPRETATION REPORT
--- NOTE | 2024-09-10 19:31 | PN ---
Date of Progress Note: 09/10/2024 Subjective: No overnight event. Potassium down to 4, creatinine at 1. The patient is here for disc harge from nephrology point of view. Objective: Vital Signs: Temperature 97.6, pulse is 64, blood pressure 140/52. General: Awake, alert, oriented, not in distress. Neck: Supple. No elevated JVD. Heart: Regular rate and rhythm. Normal S1, S2. Chest: Clear to auscultation bilaterally. No rale s or wheezes. Abdomen: Soft, nontender. Extremities: Swollen. Laboratory Data: Sodium 140, potassium of 4, BUN 7, creatinine 1. Assessment And Plan: 1.Acute kidney injury, resolved. Creatinine down to 1. Continue on vancomycin. 2.Hyperkalemia, resolved. Continue to monitor, low-potassium diet. 3.Lower extremity cellulitis. Continue antibiotic and wound care. 4.Anemia of chronic disease. Monitor H and H. Thank you for allowing me to participate in patient care. Total time spent 55 minutes including docu mentation, review of labs, and discussing with the patient at bedside. The patient is cleared for olive lopez from nephrology point of view. AA/MODL Voice ID: [id number] Report ID: [id number]
== END 2024-09-10 16:00 | disposition home health service (06) | DRG 853 ==
LOC: ER 15:24 → ERHOLD 18:50 → 2ND 22:18
PROVIDERS: ADMIT Internal Medicine; ATTEND Internal Medicine Sleep Medicine
PROC: 5A09457 Assistance with Respiratory Ventilation, 24-96 Consecutive Hours, Continuous Positive Airway Pressure (ICD-10-PCS; principal; 2024-09-06)
PROC: 30233N1 Transfusion of Nonautologous Red Blood Cells into Peripheral Vein, Percutaneous Approach (ICD-10-PCS; 2024-09-07)
PROC: 0JBP0ZZ Excision of Left Lower Leg Subcutaneous Tissue and Fascia, Open Approach (ICD-10-PCS; 2024-09-08)
DX: A41.9 Sepsis, unspecified organism (principal); N17.0 Acute kidney failure with tubular necrosis; Z68.41 Body mass index [BMI] 40.0-44.9, adult; L03.311 Cellulitis of abdominal wall; L03.116 Cellulitis of left lower limb; E87.20 Acidosis, unspecified; L97.929 Non-pressure chronic ulcer of unspecified part of left lower leg with unspecified severity; E66.01 Morbid (severe) obesity due to excess calories; E86.9 Volume depletion, unspecified; D70.9 Neutropenia, unspecified; D70.0 Congenital agranulocytosis; D50.9 Iron deficiency anemia, unspecified; E87.5 Hyperkalemia; I12.9 Hypertensive chronic kidney disease with stage 1 through stage 4 chronic kidney disease, or unspecified chronic kidney disease; N18.30 Chronic kidney disease, stage 3 unspecified; D63.1 Anemia in chronic kidney disease; R31.29 Other microscopic hematuria; T36.8X5A Adverse effect of other systemic antibiotics, initial encounter; Z88.1 Allergy status to other antibiotic agents; Z11.52 Encounter for screening for COVID-19; Z79.899 Other long term (current) drug therapy
CPT/HCPCS: 36415; 71045; 74018; 74176; 76377; 76770; 76857; 80048; 80053; 80069; 80202; 81001; 82550; 82570; 82728; 83540; 83605; 83735; 83970; 84100; 84145; 84156; 84165; 84439; 84443; 84466; 84484; 84550; 85025; 85044; 86021; 86850; 86900; 86901; 86920; 87040; 87804; 87811; 93005; 94660; 94760; 96361; 96365; 96375; 99285; J0171; J1100; J1171; J1447; J1940; J2003; J2185; J2250; J2405; J2704; J3010; J7030; J7040; P9016; P9047

== ENCOUNTER 2024-09-24 12:50 | Inpatient (IN) | payer OTHER ==
[2024-09-24] MEDS ORDERED: IPRATROPIUM BROM 0.5MG/2.5ML ONE (13:58)
[2024-09-24] MEDS ORDERED: ALBUTEROL 2.5 MG/3 ML NEB SOL ONE (13:58)
--- NOTE | 2024-09-24 14:35 | RAD REPORT ---
EXAMINATION: ONE VIEW CHEST XR CLINICAL INDICATION: Male, 34 years old.,DYSPNEA TECHNIQUE: Frontal chest projection is submitted. Examination is limited by patient positioning and t echnique. COMPARISON: 09/07/2024 FINDINGS: Progressive central interstitial prominence. Decreased inspiratory effort limits evaluation. No pneu mothorax or sizable effusion. The heart is upper limit of normal in size. Mediastinal contours are unremarkable. IMPRESSION: Progressive central interstitial prominence, suggesting worsening congestion/CHF.
[2024-09-24 18:11] LABS: Absolute Eosinophils 0.7 K/uL (0-0.5); Absolute Lymphocytes (CBC) 1.4 K/uL (0.7-4.9); Absolute Monocytes 2.2 K/uL (0.1-1.3); Absolute Neutrophil 0.2 K/uL (1.8-8.0); Eosinophils % 14.9 % (0-4.4); Hematocrit 23.1 % (39.6-49.0); Hemoglobin 7.3 g/dL (13.6-17.9); Lymphocytes % 32.3 % (15.3-44.8); MCH 24.4 pg (27.0-35.0); MCHC 31.6 g/dL (32.0-36.0); MCV 77.4 fL (80-100); MPV 8.6 fL (7.6-11.3); Neutrophils % 4.8 % (41.7-73.7); Nucleated Red Blood Cells % 0.4 % (0-0); Platelets 208 thou/uL (152-406); RBC Red Blood Cell Count 2.98 M/uL (4.33-5.43); Red Cell Distribution Width 25.6 % (12.1-15.2)
[2024-09-24] MEDS ORDERED: ONDANSETRON 4 MG/2 ML VIAL ONE (18:30)
[2024-09-24] MEDS ORDERED: MORPHINE 4 MG/ML SYR ONE (18:31)
--- NOTE | 2024-09-24 18:51 | RAD REPORT ---
EXAMINATION: ONE VIEW CHEST XR CLINICAL INDICATION: Male, 34 years old.,line confirm TECHNIQUE: Frontal chest projection is submitted. Examination is limited by patient positioning and t echnique. COMPARISON: Same date chest radiograph performed earlier. Prior radiographs 09/07/2024 and 09/02/2024 FINDINGS: Right IJ CVC, with tip projecting at the level of the superior vena cava. The lungs are again hypoinf lated, with mildly improved central interstitial prominence. No pneumothorax or sizable effusion. Stable cardiomegaly. Mediastinal contours are unremarkable. IMPRESSION: Satisfactory positioning of left IJ CVC. Partial improvement of central interstitial prominence.
[2024-09-24 19:09] LABS: Albumin 1.7 g/dL (3.4-5.0); Albumin/Globulin Ratio 0.3 (1.1-1.8); Bilirubin Direct 0.5 mg/dL (0-0.2); Bilirubin Indirect, Calculated 0.3 mg/dL (0.2-0.8); Bilirubin Total 0.8 mg/dL (0.2-1.0); Globulin 5.8 g/dL (2.3-3.5); Protein, Total 7.5 g/dL (6.4-8.2); Troponin High Sensitivity 24.8 pg/mL (<58.9)
--- NOTE | 2024-09-24 20:34 | ER ---
Nurse's Notes [facility] Name[facility] Abel Maria Age: 34 yrs Sex: Male : 1990 Arrival Date: 09/24/2024 Time: 12:50 Bed 19 Private MD: Diagnosis: Chronic combined systolic (congestive) and diastolic (congestive) heart failure;Anemia, unspecified;Obesity, unspecified;Unspecified kidney failure-insufficency Presentation: 09/24 12:55 Chief complaint: Chief complaint: EMS states: Breathing difficulty x 2 days, also c/o ph N/V, Spo2 81% RA for EMS , improved to 99% on NRB, Spo2 97% RA upon arrival to ED. 13:17 Coronavirus screen: Vaccine status: Patient reports being unvaccinated. Ebola Screen: ph No symptoms or risks identified at this time. Initial Sepsis Screen: Does the patient meet any 2 criteria? No. Patient's initial sepsis screen is negative. Does the patient have a suspected source of infection? No. Patient's initial sepsis screen is negative. Risk Assessment: Do you want to hurt yourself or someone else? Patient reports no desire to harm self or others. 13:17 Method Of Arrival: EMS: [facility] ph 13:17 Acuity: RICH 3 ph 15:26 Onset of symptoms was September 24, 2024. ph Historical: - Allergies: 14:10 Bactrim; ph 14:10 Dilaudid; ph - PMHx: 14:10 Chronic leg wound (leg); Congenital neutropenia; Sleep Apnea; ph - PSHx: 14:10 eye; leg; rectum; ph - Immunization history:: Adult Immunizations unknown. - Infectious Disease History:: Denies. - Social history:: Smoking status: unknown. - Family history:: not pertinent. Screenin:17 [facility] ED Fall Risk Assessment (Adult) History of falling in the last 3 months, ph including since admission No falls in past 3 months (0 pts) Confusion or Disorientation No (0 pts) Intoxicated or Sedated No (0 pts) Impaired Gait Yes (1 pt) Mobility Assist Device Used No (0 pt) Altered Elimination No (0 pt) Score/Fall Risk Level 0 - 2 = Low Risk Oriented to surroundings, Maintained a safe environment, Hourly rounding (assess needs \T\ fall precautionary measures) done, Used ambulatory aids as needed (educated on \T\ assisted with). Abuse screen: Denies threats or abuse. Denies injuries from another. Nutritional screening: No deficits noted. Tuberculosis screening: No symptoms or risk factors identified. Assessment: 14:00 Reassessment: Unable to obtain IV access, charge nurse Ping notified. ph 14:22 General: Appears in no apparent distress. uncomfortable, Behavior is cooperative, ph appropriate for age. Pain: Complains of pain in left leg. Neuro: Level of Consciousness is awake, alert, obeys commands, Oriented to person, place, time, situation. Cardiovascular: Capillary refill < 3 seconds in bilateral fingers Patient's skin is warm and dry. Respiratory: Reports shortness of breath at rest Airway is patent Respiratory effort is even, labored, Respiratory pattern is tachypnea. GI: Reports nausea. Derm: Skin is pink, warm \T\ dry. 14:30 Reassessment: SONG Feng at bedside to attempt US guided IV placement, 1st attempt ph unsuccessful, pt refusing further attempts at this time. 15:00 Reassessment: Rito RN at bedside for mid-line placement, pt uncooperative w/ ph procedure, states that he needs a central line, Dr Puente notified. 16:33 Reassessment: Dr Puente at bedside for central line placement. ph 18:00 Reassessment: Patient appears in no apparent distress at this time. Patient and/or ph family updated on plan of care and expected duration. Pain level reassessed. Patient is alert, oriented x 3, equal unlabored respirations, skin warm/dry/pink. Dr Puente at bedside for second central line attempt. 19:07 Reassessment: Patient appears in no apparent distress at this time. Patient and/or ph family updated on plan of care and expected duration. Pain level reassessed. Patient is alert, oriented x 3, equal unlabored respirations, skin warm/dry/pink. 19:08 Cardiovascular: Rhythm is sinus rhythm. ph 19:10 General: Appears in no apparent distress. Behavior is calm, cooperative, appropriate rg5 for age. Pain: Complains of pain in left leg. Neuro: Level of Consciousness is awake, alert, obeys commands, Oriented to person, place, time. Cardiovascular: Patient's skin is warm and dry. Respiratory: Airway is patent Respiratory effort is even, Respiratory pattern is regular, symmetrical. GI: Abdomen is round non-distended. : No signs and/or symptoms were reported regarding the genitourinary system. Derm: Skin is intact, Skin is dry, Skin is normal, Skin temperature is warm. Musculoskeletal: Circulation, motion, and sensation intact. Range of motion: intact in all extremities. 20:00 Reassessment: No changes from previously documented assessment. Patient and/or family rg5 updated on plan of care and expected duration. Pain level reassessed. 21:25 Reassessment: Patient and/or family updated on plan of care and expected duration. Pain rg5 level reassessed. Patient is alert, oriented x 3, equal unlabored respirations, skin warm/dry/pink. Vital Signs: 13:17 BP 142 / 72; Pulse 110; Resp 20; Temp 97.5; Pulse Ox 97% on R/A; Weight 104.33 kg; ph Height 5 ft. 2 in. ; 14:19 BP 142 / 72; Pulse 102; Resp 22; Pulse Ox 100% on Nebulizer Mask; ph 15:25 BP 138 / 62; Pulse 105; Resp 20; Pulse Ox 93% on R/A; ph 16:30 BP 150 / 68; Pulse 105; Resp 20; Pulse Ox 95% on R/A; ph 17:30 BP 166 / 98; Pulse 118; Resp 22; Pulse Ox 94% on R/A; ph 18:42 BP 115 / 62; Pulse 116; Resp 18; Pulse Ox 98% on 3 lpm NC; ph 19:10 BP 117 / 70; Pulse 109; Resp 18; Pulse Ox 96% on 3 lpm NC; rg5 20:15 BP 113 / 61; Pulse 112; Resp 20; Pulse Ox 97% on 3 lpm NC; rg5 21:25 BP 125 / 80; Pulse 109; Resp 20; Pulse Ox 98% on 3 lpm NC; rg5 22:20 BP 141 / 72; Pulse 103; Resp 20; Temp 98; Pulse Ox 97% on 3 lpm NC; rg5 13:17 Body Mass Index 42.07 (104.33 kg, 157.48 cm) ph 15:25 pt asleep ph ED Course: 12:55 Patient arrived in ED. ph 12:56 Aric Puente MD is Attending Physician. rt 13:13 Goodwin, Bushra, RN is Primary Nurse. ph 13:18 XRAY Chest (1 view) In Process Unspecified. EDMS 13:19 Triage completed. ph 13:50 Missed attempt(s): 22 gauge in right forearm. Bleeding controlled, band aid applied, ph catheter tip intact. 13:55 Missed attempt(s): 22 gauge in right forearm. Bleeding controlled, band aid applied, ph catheter tip intact. 14:18 Arm band placed on Patient placed in an exam room, on a stretcher. ph 14:30 Missed attempt(s): 20 gauge in right antecubital area. ph 15:21 Patient has correct armband on for positive identification. Bed in low position. Call ph light in reach. Side rails up X 1. equipment monitor phototypesetting on. Pulse ox on. NIBP on. Door closed. Noise minimized. Pillow given. 16:33 Assisted provider with central line placement. Set up central line tray. Triple lumen ph line placed in right internal jugular. Patient tolerated poorly. 1 attempt at CL placement to R IJ unsuccessful, Dr Puente will attempt again on L IJ Was a 2nd qualified MD obtained after 3 unsuccessful insertion attempts? No. 18:00 Assisted provider with central line placement. Set up central line tray. Triple lumen ph line placed in left internal jugular. Line placed by Airc Puente MD Placement verified by CXR, blood return, Dressed with Tegaderm, Blood was collected. Patient tolerated poorly. Before procedure, did Practitioner(s) obtain informed consent? Yes. Patient \T\ family education about procedure, CLABSI prevention and S/S of infection? Yes. Time-out/Briefing performed prior to start of procedure? Yes. Was handwashing/sanitizing done immediately prior to procedure? Yes. Was patient positioned to in a way to prevent air embolism? Yes. Was procedure site sterilized? Yes, with Was the site allowed to dry? Yes. Was local anesthetic and/or sedation utilized? Yes. During the procedure, did the Practitioner(s) maintain a sterile field? Yes. Were unused ports clamped during insertion? Yes. Was a 2nd qualified MD obtained after 3 unsuccessful insertion attempts? No. Was blood aspirated from each lumen? Yes. After the procedure, did the Practitioner(s) clean the site and apply a sterile dressing? Yes. 18:37 Chest Single View XRAY In Process Unspecified. EDMS 20:02 Attending Physician role handed off by Aric Puente MD [facility] 20:02 Castillo Camacho MD is Attending Physician. adriel 20:14 CT Chest For PE Angio In Process Unspecified. EDMS 20:32 Apollo Ribeiro is Hospitalizing Provider. adriel 22:17 Extrem Venous W Compress Jean-Pierre In Process Unspecified. EDMS Administered Medications: 14:03 Drug: DuoNeb Nebulize (3:1) (2.5 mg - 0.5 mg) 3 ml Nebulizer once Route: Nebulizer; ph 14:30 Follow up: Response: No adverse reaction ph 18:41 Drug: morphine IVP or IV 4 mg IVP once over 4 mins Route: IVP; Infused Over: 4 mins; ph Site: left jugular; 18:42 Follow up: Response: No adverse reaction; Pain is decreased; RASS: Drowsy (-1) ph 18:41 Drug: Ondansetron IVP 4 mg IVP once; over 2 minutes Route: IVP; Site: left jugular; ph 18:42 Follow up: Response: No adverse reaction ph 20:40 Drug: Furosemide IVP 40 mg IVP once; give over 2 minutes Route: IVP; Site: left jugular;rg5 22:20 Follow up: Response: No adverse reaction rg5 20:40 Drug: Pantoprazole IVP 40 mg IVP once Route: IVP; Site: left jugular; rg5 22:19 Follow up: Response: No adverse reaction rg5 Medication: 15:14 VIS not applicable for this client. ph Outcome: 20:34 Decision to Hospitalize by Provider. adriel 23:52 Patient left the ED. rg5 Signatures: Dispatcher [employer] EDIL Castillo Camacho MD MD cha Hall, Patricia, RN RN Aric Puente MD MD rt Yosvany Anders RN RN rg5 Corrections: (The following items were deleted from the chart) 13:19 12:55 Chief complaint: ph ph 20:51 04:00 Furosemide IVP 40 mg IVP in left jugular rg5 rg5
--- NOTE | 2024-09-24 20:34 | EDPHYS ---
Physician Documentation [facility] Name: Abel Maria Age: 34 yrs Sex: Male : 1990 Arrival Date: 09/24/2024 Time: 12:50 Bed 19 Private MD: ED Physician Castillo Camacho HPI: 09/24 19:15 This 34 yrs old Male presents to ER via EMS with complaints of Breathing Difficulty. rt 19:15 Patient presents to the ED with dyspnea for 2 days. The patient was reportedly hypoxic rt to 81% on room air by EMS, received oxygen by nonrebreather, improved, department to get off of oxygen. Denies chest pain. Reports nausea, vomiting, chronic pain. Symptoms are moderate in severity, no other aggravating alleviating factors.. Historical: - Allergies: 14:10 Bactrim; ph 14:10 Dilaudid; ph - PMHx: 14:10 Chronic leg wound (leg); Congenital neutropenia; Sleep Apnea; ph - PSHx: 14:10 eye; leg; rectum; ph - Immunization history:: Adult Immunizations unknown. - Infectious Disease History:: Denies. - Social history:: Smoking status: unknown. - Family history:: not pertinent. ROS: 19:15 Constitutional: Negative for fever, chills, and weight loss, Cardiovascular: Negative rt for chest pain, palpitations, and edema, Skin: Negative for injury, rash, and discoloration, 19:15 Respiratory: Positive for shortness of breath, Negative for cough, 19:15 Abdomen/GI: Positive for nausea and vomiting, Exam: 19:15 Constitutional: This is a well developed, well nourished patient who is awake, alert, rt and in no acute distress. Head/Face: Normocephalic, atraumatic. Chest/axilla: Normal chest wall appearance and motion. Nontender with no deformity. No lesions are appreciated. Cardiovascular: Regular rate and rhythm with a normal S1 and S2. No gallops, murmurs, or rubs. Normal PMI, no JVD. No pulse deficits. Respiratory: Lungs have equal breath sounds bilaterally, clear to auscultation and percussion. No rales, rhonchi or wheezes noted. No increased work of breathing, no retractions or nasal flaring. Abdomen/GI: Soft, non-tender, with normal bowel sounds. No distension or tympany. No guarding or rebound. No evidence of tenderness throughout. Skin: Warm, dry with normal turgor. Normal color with no rashes, no lesions, and no evidence of cellulitis. MS/ Extremity: Pulses equal, no cyanosis. Neurovascular intact. Full, normal range of motion. Neuro: Awake and alert, GCS 15, oriented to person, place, time, and situation. Cranial nerves II-XII grossly intact. Motor strength 5/5 in all extremities. Sensory grossly intact. Cerebellar exam normal. Normal gait. 19:15 ECG was reviewed by the Attending Physician. Vital Signs: 13:17 BP 142 / 72; Pulse 110; Resp 20; Temp 97.5; Pulse Ox 97% on R/A; Weight 104.33 kg; ph Height 5 ft. 2 in. ; 14:19 BP 142 / 72; Pulse 102; Resp 22; Pulse Ox 100% on Nebulizer Mask; ph 15:25 BP 138 / 62; Pulse 105; Resp 20; Pulse Ox 93% on R/A; ph 16:30 BP 150 / 68; Pulse 105; Resp 20; Pulse Ox 95% on R/A; ph 17:30 BP 166 / 98; Pulse 118; Resp 22; Pulse Ox 94% on R/A; ph 18:42 BP 115 / 62; Pulse 116; Resp 18; Pulse Ox 98% on 3 lpm NC; ph 19:10 BP 117 / 70; Pulse 109; Resp 18; Pulse Ox 96% on 3 lpm NC; rg5 20:15 BP 113 / 61; Pulse 112; Resp 20; Pulse Ox 97% on 3 lpm NC; rg5 21:25 BP 125 / 80; Pulse 109; Resp 20; Pulse Ox 98% on 3 lpm NC; rg5 22:20 BP 141 / 72; Pulse 103; Resp 20; Temp 98; Pulse Ox 97% on 3 lpm NC; rg5 13:17 Body Mass Index 42.07 (104.33 kg, 157.48 cm) ph 15:25 pt asleep ph Procedures: 19:17 Central Line: the site was prepped with in sterile fashion, Chlorhexidine, a triple rt lumen catheter was inserted, in the left internal jugular vein, in 2 attempts. placement was verified, by CXR, by blood return, the site was dressed with Chlorhexidine impregnated Tegaderm, the patient tolerated the procedure, well, Initial attempt was made at the right internal jugular, large compressible, nonpulsatile vessel was identified via ultrasound. Pulsatile flow was noted when the introducer needle was placed, needle was removed, pressure was held, procedure was terminated, moved to the left side which was successful in the first attempt. MDM: 12:56 Medical Screening Exam initiated rt 20:34 Differential diagnosis: Anemia asthma, Bronchitis CHF exacerbation, Myocardial adriel Infarction pneumonia, pulmonary edema, Pulmonary Embolism reactive airway disease, Sepsis Unstable Angina. Antibiotic administration: Not indicated. Immunization status:. Data reviewed: vital signs, nurses notes, lab test result(s), EKG, radiologic studies, CT scan, plain films. Consideration of Admission/Observation Patient was admitted/placed on observation. Escalation of care including admission/observation considered. I considered the following discharge prescriptions or medication management in the emergency department Medications were administered in the Emergency Department. See MAR. Independent interpretation of the following test(s) in the Emergency Department EKG: See my EKG interpretation above. Test considered but Not performed: Ultrasound no 2 d echo. Care significantly affected by the following chronic conditions: Hypertension, Obesity, Chronic Kidney Disease, ext wound, chronic. 09/24 12:57 Order name: Basic Metabolic Panel; Complete Time: 19:10 rt 09/24 12:57 Order name: CBC with Diff rt 09/24 12:57 Order name: LFT's; Complete Time: 19:10 rt 09/24 12:57 Order name: Magnesium; Complete Time: 19:10 rt 09/24 12:57 Order name: NT PRO-BNP; Complete Time: 19:10 rt 09/24 12:57 Order name: Troponin HS; Complete Time: 19:10 rt 09/24 12:57 Order name: D-Dimer; Complete Time: 19:10 rt 09/24 20:29 Order name: Type And Screen adriel 09/24 21:56 Order name: CBC with Automated Diff EDMS 09/24 21:56 Order name: Comprehensive Metabolic Panel EDMS 09/24 21:56 Order name: Creatine Phosphokinase EDMS 09/24 21:56 Order name: Lactate w/ 2H reflex if indic. EDMS 09/24 21:56 Order name: Magnesium EDMS 09/24 21:56 Order name: NT PRO-BNP EDMS 09/24 21:56 Order name: Phosphorus EDMS 09/24 21:56 Order name: Thyroid Stimulating Hormone EDNJ 09/24 21:56 Order name: Urinalysis w/ reflexes EDNJ 09/24 21:56 Order name: Lipid Profile [facility] 09/24 21:56 Order name: Lipid Profile [facility] 09/24 21:56 Order name: Troponin High Sensitivity EDNJ 09/24 21:56 Order name: Troponin High Sensitivity [facility] 09/24 21:56 Order name: Troponin High Sensitivity [facility] 09/24 21:56 Order name: Troponin High Sensitivity [facility] 09/24 21:56 Order name: Procalcitonin EDNJ 09/24 12:57 Order name: XRAY Chest (1 view); Complete Time: 14:42 rt 09/24 18:02 Order name: Chest Single View XRAY; Complete Time: 18:52 rt 09/24 19:10 Order name: CT Chest For PE Angio rt 09/24 21:12 Order name: Extrem Venous W Compress Jean-Pierre EDNJ 09/24 21:56 Order name: CONS Physician Consult [facility] 09/24 21:56 Order name: Respiratory Therapy Consult [facility] 09/24 12:57 Order name: Cardiac monitoring; Complete Time: 14:10 rt 09/24 12:57 Order name: EKG - Nurse/Tech; Complete Time: 14:10 rt 09/24 12:57 Order name: IV Saline Lock; Complete Time: 18:47 rt 09/24 12:57 Order name: Labs collected and sent; Complete Time: 14:00 rt 09/24 12:57 Order name: O2 Per Protocol; Complete Time: 14:00 rt 09/24 12:57 Order name: O2 Sat Monitoring; Complete Time: 14:00 rt EC:15 Rate is 100 beats/min. Rhythm is regular, Normal Sinus Rhythm with No ectopy. QRS [place] rt is Normal. AL interval is normal. QRS interval is normal. QT interval is normal. No Q waves. T waves are Normal. No ST changes noted. Interpreted by me. Administered Medications: 14:03 Drug: DuoNeb Nebulize (3:1) (2.5 mg - 0.5 mg) 3 ml Nebulizer once Route: Nebulizer; ph 14:30 Follow up: Response: No adverse reaction ph 18:41 Drug: morphine IVP or IV 4 mg IVP once over 4 mins Route: IVP; Infused Over: 4 mins; ph Site: left jugular; 18:42 Follow up: Response: No adverse reaction; Pain is decreased; RASS: Drowsy (-1) ph 18:41 Drug: Ondansetron IVP 4 mg IVP once; over 2 minutes Route: IVP; Site: left jugular; ph 18:42 Follow up: Response: No adverse reaction ph 20:40 Drug: Furosemide IVP 40 mg IVP once; give over 2 minutes Route: IVP; Site: left jugular;rg5 22:20 Follow up: Response: No adverse reaction rg5 20:40 Drug: Pantoprazole IVP 40 mg IVP once Route: IVP; Site: left jugular; rg5 22:19 Follow up: Response: No adverse reaction rg5 Disposition Summary: 09/24/24 20:34 Hospitalization Ordered Notes: Hospitalization Status: Inpatient Admission adriel Provider: Apollo Ribeiro cha Location: Telemetry/MedSurg (Inpatient) adriel Condition: Fair adriel Problem: new adriel Symptoms: have improved adriel Bed/Room Type: Standard adriel Room Assignment: 217(09/24/24 22:13) ty Diagnosis - Chronic combined systolic (congestive) and diastolic (congestive) heart failure adriel - Anemia, unspecified adriel - Obesity, unspecified adriel - Unspecified kidney failure - insufficency adriel Forms: - Medication Reconciliation Form adriel - SBAR form adriel - Leadership Thank You Letter adriel Signatures: Dispatcher [employer] EDCastillo Langston MD MD cha Hall, Patricia RN RN Aric Johnson MD MD rt Yandell, Tylor ty Gallardo, Rommel, RN RN rg5 Corrections: (The following items were deleted from the chart) 12:57 12:57 BASIC METABOLIC PANEL+C.LAB.BRZ ordered. EDMS EDMS 12:57 12:57 CBC+H.LAB.BRZ ordered. EDMS EDMS 12:57 12:57 HEPATIC FUNCTION+C.LAB.BRZ ordered. EDMS EDMS 12:57 12:57 MAGNESIUM+C.LAB.BRZ ordered. EDMS EDMS 12:58 12:57 PROBNP+C.LAB.BRZ ordered. EDMS EDMS 12:58 12:57 Troponin High Sensitivity+C.LAB.BRZ ordered. EDMS EDMS 12:58 12:57 D-DIMER+COAG.LAB.BRZ ordered. EDMS EDMS 12:58 12:58 Chest Single View+RAD.RAD.BRZ ordered. EDMS EDMS 18:03 18:03 Chest Single View+RAD.RAD.BRZ ordered. EDMS EDMS 20:29 20:29 TYPE AND SCREEN+BB.LAB.BRZ ordered. EDMS EDMS 22:13 20:34 adriel ty
[2024-09-24] MEDS ORDERED: PANTOPRAZOLE 40 MG INJ ONE (20:44)
[2024-09-24] MEDS ORDERED: FUROSEMIDE 40 MG/4 ML VIAL ONE (20:44)
--- NOTE | 2024-09-24 20:51 | RAD REPORT ---
EXAM: CT Chest For Pe Angio TECHNIQUE: CT angiogram of the chest was performed following intravenous contrast administration, inc luding sagittal and coronal as well as maximum intensity projection reformats. One or more of the following dose reduction techniques were used: Automated exposure control, adjustment of the mA and k V according to patient size, and iterative reconstruction. Unless otherwise specified, incidental findings do not require dedicated imaging follow-up. INDICATION: [facility] DYSPNEA Bed Name: 19 N COMPARISON: 09/24/2024 radiographs. FINDINGS: LINES/TUBES: None. PULMONARY ARTERIES: Main pulmonary arteries are normal in caliber. No filling defects within the pul monary arteries to suggest pulmonary embolus, although evaluation of the peripheral vessels is somewhat limited given volume averaging and contrast timing. LUNGS AND AIRWAYS: Decreased inspiratory effort limits evaluation. Interlobular septal thickening and geographic groundglass opacities with central predominance. PLEURA: Trace bilateral effusions. No pneumothorax. HEART AND MEDIASTINUM: The visualized thyroid gland is normal. No mediastinal, hilar, or axillary lym phadenopathy. Heart is unremarkable. No pericardial effusion. SOFT TISSUES AND BONES: No acute osseous abnormality. No significant soft tissue finding. UPPER ABDOMEN: His parenchymal hypoattenuation suggesting steatosis. IMPRESSION: No evidence of acute central pulmonary emboli allowing for limitations mentioned above. Findings suggesting central venous congestion or pulmonary edema...
[2024-09-24] MEDS ORDERED: ACETAMINOPHEN 325 MG TABLET PO PRN (21:50)
--- NOTE | 2024-09-24 22:01 | P.HP ---
Certification for Inpatient With expected LOS: <2 Midnights Practitioner: I am a practitioner with admitting privileges, knowledge of patient current condition, hospital course, and medical plan of care. Services: Services provided to patient in accordance with Admission requirements found in Title 42 Section 412.3 of the Code of Federal Regulations Patient History Date of Service: 09/24/24 Reason for admission: CHF exacerbation, dyspnea History of Present Illness: 34-year-old man with a past medical history significant for obesity, chronic anemia, ALLISON, chronic left lower extremity wound, and CHF presented to the emergency room complaining of dyspnea x 2 days. The patient is not on home oxygen. He is a former smoker who quit 20 years ago. The patient states that he has a history of CHF exacerbations, but does not recall the last one. Per chart review, the patient was here in March 2024 for for shortness of breath. His BNP at that time was 111, and today it is 3673. Upon arrival to the ED, the patient was found to have an elevated D-dimer, negative troponin. He denies fever. Allergies sulfamethoxazole [From Bactrim] Allergy (Verified 07/13/24 15:08) Itching trimethoprim [From Bactrim] Allergy (Verified 07/13/24 15:08) Itching Home medications list reviewed: Yes Home Medications: Hydrocodone 10/APAP 325 [[place] 10/325] 1 tab PO Q12HR PRN 09/02/24 Naproxen 500 mg PO BID 09/02/24 methocarbamoL [Robaxin] 750 mg PO BID 09/02/24 Doxycycline Hyclate 100 mg PO BID 7 Days #14 tab 09/10/24 - Past Medical/Surgical History Diabetic: No -: Neutropenia -: Anemia -: Non healing wounds on the abdominal wall and the LLE -: ALLISON -: CHF -: Debriedement of the wounds on the left leg -: 03/29/24 LEXISCAN INJECTED. CARDIOLITE INJECTED no ischemia Psychosocial/ Personal History: Pt lives in a trailer now moved to the [place] area in his trailer - Family History Family History: Reviewed- Non-Contributory - Family History Mother Notes: Severe chronic acute Congenital neutropenia - Social History Smoking Status: Former smoker (quit 20 years ago) Alcohol use: No CD- Drugs: No Caffeine use: No Review of Systems Respiratory: Cough (dry), Shortness of Breath Cardiovascular: Chest Pain (mild, substernal, without radiation) Gastrointestinal: Abdominal Pain (mild b/l upper quadrant) Physical Examination - Vital Signs Temperature: 97.5 F Blood Pressure: 125/80 Pulse: 104 Respirations: 18 Pulse Ox (%): 100 (nasal cannula) - Physical Exam General: Alert, Oriented x3 HEENT: Atraumatic, Normocephalic Neck: JVD not distended Respiratory: Crackles/rales (b/l) Cardiovascular: No edema, No gallops, No rubs, No murmurs (tachycardia, rate of 104) Gastrointestinal: Normal bowel sounds, Non-distended, Tenderness (mild b/l upper abd quadrants) Musculoskeletal: No swelling, No erythema, No tenderness, No warmth, Other (left LE with [place] wrap over wound without signs of infection, mild edema of left foot) Neurological: Normal strength at 5/5 x4 extr, Sensation intact - Studies Laboratory Data (last 24 hrs) 09/24/24 09/24/24 18:00 18:00 WBC 4.50 Hgb 7.3 L Hct 23.1 L Plt Count 208 Sodium 136 Potassium 4.0 BUN 47 H Creatinine 1.76 H Glucose 120 H Magnesium 2.0 Total Bilirubin 0.8 AST 31 ALT 26 Alkaline Phosphatase 109 Assessment and Plan - Problems (Diagnosis) (1) CHF exacerbation Current Visit: Yes Status: Acute (2) ALLISON (obstructive sleep apnea) Current Visit: Yes Status: Acute (3) Anemia Current Visit: No Status: Acute (4) Cellulitis of left lower extremity Current Visit: No Status: Acute - Plan CHF exacerbation: Admit to floor Pulm consulted Respiratory therapy consulted DuoNebs as needed Heparin ordered Pro-Luis, BNP, and other labs ordered to trend CXR showed worsening CHF CT Chest revealed no PE US of b/l LE failed no DVT Troponin negative Has CVC Given DuoNeb treatment, IVF, Zofran, morphine, pantoprazole, and Lasix in ED ALLISON: CPAP at bedtime ordered Anemia: Type and screen ordered Hb 7.3 currently, will transfuse if Hb <7 with early am labs Chronic LLE wound: No signs of infection - Advance Directives Does patient have a Living Will: No Does patient have a Durable POA for Healthcare: No
--- NOTE | 2024-09-24 22:25 | RAD REPORT ---
EXAMINATION: US Extrem Venous W Compress Jean-Pierre CLINICAL INDICATION: [facility] MAIN r/o dvt, elevated d dimer Y TECHNIQUE: Complete bilateral duplex sonography of the BILATERAL lower extremity veins was performed. The examination included compression for vein patency, color Doppler imaging and flow augmentation in response to distal compression of the distal external iliac, common femoral, femoral, popliteal, t ibial, and great and small saphenous veins. COMPARISON: No prior exam. FINDINGS: Duplex sonography testing of the veins of the BILATERAL lower extremity was performed, with the excep tion of the left posterior tibial veins which could not be assessed due to presence of wound dressing. Color flow imaging shows all veins to be compressible with [id number] color filling. Puls atile and phasic flow is present within all lower extremity deep and superficial veins examined. IMPRESSION: There is no deep vein or superficial vein thrombosis in the evaluated veins.
[2024-09-25] MEDS: HEPARIN 5000 UNIT/ML 1 ML VIAL SQ SCH (00:30)
[2024-09-25] MEDS: IPRATROPIUM BROM 0.5MG/2.5ML NEB SCH (00:42)
[2024-09-25] MEDS: ALBUTEROL 2.5 MG/3 ML NEB SOL NEB PRN (00:42)
[2024-09-25 02:13] LABS: Band Neutrophils 5 % (0-1); Differential Total Cells Count 100; Eosinophils 15 % (0-3); Lymphocytes 27 % (15-42); Monocytes 47 % (0-10); Nucleated Red Blood Cells 2 /100WBC; Platelet Estimate ADEQ; Segmented Neutrophils 4 % (40-80)
[2024-09-25 02:14] LABS: Anisocytosis 3+; Blood Morphology Comment NOTED (NOT SEEN); Ovalocytes 1+; Poikilocytosis 1+; Polychromasia 1+
[2024-09-25 05:36] VITALS: BMI 43.0
[2024-09-25 08:48] LABS: Absolute Basophils 0.1 K/uL (0-0.5); Absolute Eosinophils 0.7 K/uL (0-0.5); Absolute Lymphocytes (CBC) 1.5 K/uL (0.7-4.9); Absolute Monocytes 1.8 K/uL (0.1-1.3); Basophils % 1.3 % (0-1.3); Eosinophils % 13.9 % (0-4.4); Hematocrit 22.6 % (39.6-49.0); Hemoglobin 7.2 g/dL (13.6-17.9); Lymphocytes % 30.1 % (15.3-44.8); MCH 24.6 pg (27.0-35.0); MPV 8.4 fL (7.6-11.3); Monocytes % 35.7 % (3.3-12.3); Nucleated Red Blood Cells % 0.2 % (0-0); Platelets 222 thou/uL (152-406); RBC Red Blood Cell Count 2.94 M/uL (4.33-5.43); Red Cell Distribution Width 25.3 % (12.1-15.2)
[2024-09-25 09:17] LABS: Troponin High Sensitivity 23.3 pg/mL (<58.9)
[2024-09-25 09:21] LABS: Band Neutrophils 8 % (0-1); Differential Total Cells Count 100; Dohle Bodies PRESENT; Eosinophils 22 % (0-3); Lymphocytes 27 % (15-42); Monocytes 27 % (0-10); Platelet Estimate ADEQ; Segmented Neutrophils 14 % (40-80)
[2024-09-25 09:22] LABS: ALT/SGPT 22 U/L (16-61); AST/SGOT 24 U/L (15-37); Albumin 1.6 g/dL (3.4-5.0); Albumin/Globulin Ratio 0.3 (1.1-1.8); Alkaline Phosphatase 113 U/L (45-117); Anion Gap 10.8 mEq/L (5.0-15.0); Anisocytosis 2+; BUN Blood Urea Nitrogen 42 mg/dL (7-18); Bicarbonate 26 mEq/L (21-32); Bilirubin Total 0.4 mg/dL (0.2-1.0); Blood Morphology Comment NOTED (NOT SEEN); Globulin 5.6 g/dL (2.3-3.5); Glomerular Filtration Rate 55 ml/min (=/>90); Glucose Level 132 mg/dL (74-106); Hypochromasia 1+; Magnesium 2.2 mg/dL (1.6-2.4); Microcytosis 1+; NT PRO-BNP 3060 pg/mL (<125); Phosphorus 6.3 mg/dL (2.5-4.9); Poikilocytosis 1+; Polychromasia 1+; Potassium 3.8 mEq/L (3.5-5.1); Protein, Total 7.2 g/dL (6.4-8.2); Sodium Level 138 mEq/L (136-145)
[2024-09-25 09:23] LABS: Creatine Phosphokinase < 15 U/L (39-308)
[2024-09-25] MEDS: HYDROCODONE/APAP 10/325 TAB PO PRN (12:35)
[2024-09-25] MEDS: MORPHINE 2 MG/ML SYR IV PRN (13:48)
--- NOTE | 2024-09-25 15:11 | P.PN ---
Subjective Date of Service: 09/25/24 Chief Complaint: CHF exacerbation, dyspnea Patient complaining of pain in his left lower extremity wound. He refused to wear CPAP/BIPAP last night. Patient was sleeping during my examination but he was easily arousable and was answering questions appropriately. Noted with use breathing ecursions during sleep. Physical Examination - Vital Signs Temperature: 98.5 F Blood Pressure: 172/78 Pulse: 68 Respirations: 18 Pulse Ox (%): 93 - Studies Laboratory Data (last 24 hrs) 09/24/24 09/24/24 18:00 18:00 WBC 4.50 Hgb 7.3 L Hct 23.1 L Plt Count 208 Sodium 136 Potassium 4.0 BUN 47 H Creatinine 1.76 H Glucose 120 H Magnesium 2.0 Total Bilirubin 0.8 AST 31 ALT 26 Alkaline Phosphatase 109 Assessment And Plan - Plan Physical examination General: Alert and oriented x3, NAD, morbidly obese HEENT: Conjunctiva not pale, anicteric sclera Neck: Supple, no elevated JVD Heart: Heart sounds 1 and 2 normal, regular rhythm, normal rate, no pedal edema Lungs: Clear to auscultation bilaterally, diminished breath sounds bilaterally, decreased breathing discussions, no rhonchi or crackles. Abdomen: Soft, nondistended, obese nontender, normal bowel sounds. Extremities: No tenderness, no deformity Skin: Normal skin turgor, no rash, left bruno shallow ulcer. Neuro: No focal motor deficit. Normal speech. Psychiatry: Normal mood, no agitation. Diagnosis Acute on chronic diastolic heart failure Obesity hypoventilation Obstructive sleep Chronic left lower extremity wound. Chronic Anemia Congenital neutropenia Plan: Acute on chronic diastolic heart failure Continue IV Lasix Bronchodilators Supplemental oxygen, titrate to SpO2 88-90% Repeat echocardiogram Troponin negative ALLISON/obesity hypoventilation CPAP at bedtime ordered Bronchodilators. Chronic anemia No active bleed Monitor and transfuse for hemoglobin less than 7 Chronic LLE wound Continue local wound care. Congenital neutropenia Neupogen therapy as needed. Chronic pain syndrome Resume oxycodone. Morphine IV as needed. DVT prophylaxis: Heparin SQ.
[2024-09-25] MEDS: NAPROXEN 250 MG TAB PO SCH (21:00)
[2024-09-25] MEDS ORDERED: HYDROCODONE/APAP 10/325 TAB PO SCH (21:00)
[2024-09-25] MEDS: methocarbamoL 750 MG TAB PO SCH (21:32)
[2024-09-26] MEDS: hydrOXYzine HCL 25 MG TAB PO ONE (04:07)
[2024-09-26 05:16] LABS: Absolute Basophils 0.1 K/uL (0-0.5); Absolute Eosinophils 0.9 K/uL (0-0.5); Absolute Lymphocytes (CBC) 1.8 K/uL (0.7-4.9); Absolute Monocytes 1.6 K/uL (0.1-1.3); Absolute Neutrophil 1.2 K/uL (1.8-8.0); Eosinophils % 16.6 % (0-4.4); Hematocrit 22.2 % (39.6-49.0); Lymphocytes % 31.8 % (15.3-44.8); MCH 24.5 pg (27.0-35.0); MCHC 31.5 g/dL (32.0-36.0); MCV 77.9 fL (80-100); Monocytes % 29.5 % (3.3-12.3); Nucleated Red Blood Cells % 0.1 % (0-0); Platelets 223 thou/uL (152-406); RBC Red Blood Cell Count 2.86 M/uL (4.33-5.43)
[2024-09-26 05:21] LABS: Neutrophils % 21.1 % (41.7-73.7)
[2024-09-26 05:43] LABS: Anion Gap 7.7 mEq/L (5.0-15.0); Potassium 4.7 mEq/L (3.5-5.1); Troponin High Sensitivity 17.6 pg/mL (<58.9)
[2024-09-26] MEDS: FUROSEMIDE 40 MG/4 ML VIAL IV SCH (11:35)
--- NOTE | 2024-09-26 12:33 | P.CNS ---
Date of Consult: 09/26/24 Reason for Consult: Dyspnea CHF Chief Complaint: CHF exacerbation, dyspnea History of Present Illness: Is 34 years of age recurrent hospital admissions for lower extremity wound he was just recently discharged quit smoking 20 years ago came into the hospital w ith worsening dyspnea diagnosed with CHF currently he is sleepy responding to any conversations Allergies sulfamethoxazole [From Bactrim] Allergy (Verified 07/13/24 15:08) Itching trimethoprim [From Bactrim] Allergy (Verified 07/13/24 15:08) Itching Home Medications: Hydrocodone 10/APAP 325 [[place] 10/325] 1 tab PO Q12HR PRN 09/02/24 Naproxen 500 mg PO BID 09/02/24 methocarbamoL [Robaxin] 750 mg PO BID 09/02/24 Doxycycline Hyclate 100 mg PO BID 7 Days #14 tab 09/10/24 - Past Medical/Surgical History Diabetic: No -: Neutropenia -: Anemia -: Non healing wounds on the abdominal wall and the LLE -: ALLISON -: CHF -: Debridement of the wounds on the left leg -: 03/29/24 LEXISCAN INJECTED. CARDIOLITE INJECTED no ischemia Psychosocial/ Personal History: Pt lives in a trailer now moved to the [place] area in his trailer - Family History Mother Notes: Severe chronic acute Congenital neutropenia - Social History Smoking Status: Unknown if ever smoked Alcohol use: No CD- Drugs: No Caffeine use: No Place of Residence: Home Review of Systems is unable to be obtained Physical Examination Temp Pulse Resp BP Pulse Ox 98.1 F 82 16 122/70 93 09/26/24 08:00 09/26/24 11:35 09/26/24 12:14 09/26/24 11:35 09/26/24 12:14 General: Unresponsive Respiratory: Clear to auscultation bilaterally, Diminished Cardiovascular: No edema, Regular rate/rhythm, Normal S1 S2 Gastrointestinal: Normal bowel sounds, Soft and benign - Problems (1) CHF exacerbation Current Visit: Yes Status: Acute Plan: Patient is 34 years of age recurrent hospital admissions for left wound infection. With dyspnea BNP is significantly elevated no evidence of DVT or PE signs oxygenation satisfactory 2D echocardiogram add diuretics is has renal insufficiency function is improving Qualifiers: Heart failure type: unspecified Qualified Code(s): I50.9 - Heart failure, unspecified (2) Microcytic anemia Current Visit: Yes Status: Acute Plan: Patient has severe microcytic anemia start patient on IV iron
[2024-09-26] MEDS: SOD FERRIC GLUC COMPLX/SUCROSE 125 MG in NA CHLORIDE 0.9% 100 ML IV SCH (13:37)
--- NOTE | 2024-09-26 13:47 | P.PN ---
Subjective Date of Service: 09/26/24 Chief Complaint: CHF exacerbation, dyspnea Patient has no new complaint. He remains on 2 L oxygen by nasal cannula. No recorded fever. Physical Examination - Vital Signs Temperature: 98.5 F Blood Pressure: 138/61 Pulse: 78 Respirations: 16 Pulse Ox (%): 93 Assessment And Plan - Plan Physical examination General: Alert and oriented x3, NAD, morbidly obese HEENT: Anicteric sclera Neck: Supple, no elevated JVD Heart: Heart sounds 1 and 2 normal, regular rhythm, normal rate, no pedal edema Lungs: Clear to auscultation bilaterally, diminished breath sounds bilaterally, decreased breathing discussions, no rhonchi or crackles. Abdomen: Soft, nondistended, obese nontender, normal bowel sounds. Extremities: No tenderness, no deformity Skin: Normal skin turgor, no rash, left bruno shallow ulcer. Neuro: No focal motor deficit. Normal speech. Psychiatry: Normal mood, no agitation. Diagnosis Acute on chronic diastolic heart failure Obesity hypoventilation Obstructive sleep Chronic left lower extremity wound. Chronic Anemia Congenital neutropenia Plan: Acute on chronic diastolic heart failure Continue IV Lasix Bronchodilators Wean oxygen as possible. Echocardiogram is pending. Repeat chest x-ray in a.m. Troponin negative ALLISON/obesity hypoventilation CPAP at bedtime ordered. Patient has been refusing CPAP. Bronchodilators. Chronic anemia No active bleed Monitor and transfuse for hemoglobin less than 7 Chronic LLE wound Continue local wound care. Congenital neutropenia Neupogen therapy as needed. Chronic pain syndrome Continue oxycodone. Morphine IV as needed. DVT prophylaxis: Heparin SQ.
[2024-09-26 17:20] LABS: Specific Gravity 1.007 (1.005-1.030); Sqamous Epithelial <5 /HPF (None Seen); Urine Bacteria <20 /HPF (<20); Urine Bilirubin NEGATIVE (Negative); Urine Blood Negative (Negative); Urine Clarity Clear (Clear); Urine Color Colorless (Yellow); Urine Culture Reflex Order NOT NEEDED; Urine Glucose NEGATIVE (Negative); Urine Ketones NEGATIVE (Negative); Urine Microscopic Reflex YN ORDER UMIC; Urine Mucus Slight /HPF (None Seen); Urine Nitrite NEGATIVE (Negative); Urine Protein NEGATIVE (Negative); Urine RBC <5 /HPF (None Seen); Urine Urobilinogen Normal (Normal); Urine WBC <5 /HPF (<5)
--- NOTE | 2024-09-26 17:25 | EKG ---
Test Date: 2024-09-24 Test Time: 14:06:53 Biostatistics Director: BEN MEASUREMENT RESULTS: Intervals: Rate: 100 [place]: 146 QRSD: 82 QT: 360 QTc: 464 [place]: P: 57 [place]: 146 QRS: 55 T: 35 INTERPRETIVE STATEMENTS: Normal sinus rhythm Normal ECG Compared to ECG 09/02/2024 17:37:01 Sinus tachycardia no longer present T-wave abnormality no longer present Electronically Signed On 09-26-24 17:21:41 FRONT OFFICE MANAGER by Reno Mendiola
[2024-09-27 07:03] LABS: Albumin 1.8 g/dL (3.4-5.0); Anion Gap 7.3 mEq/L (5.0-15.0); Magnesium 2.3 mg/dL (1.6-2.4); Phosphorus 4.6 mg/dL (2.5-4.9); Potassium 5.3 mEq/L (3.5-5.1); Troponin High Sensitivity 15.6 pg/mL (<58.9)
[2024-09-27 07:23] LABS: Hematocrit 23.1 % (39.6-49.0); Hemoglobin 7.5 g/dL (13.6-17.9); MCH 25.3 pg (27.0-35.0); MCHC 32.3 g/dL (32.0-36.0); MCV 78.4 fL (80-100); Platelets 230 thou/uL (152-406); RBC Red Blood Cell Count 2.95 M/uL (4.33-5.43); Red Cell Distribution Width 25.7 % (12.1-15.2)
--- NOTE | 2024-09-27 08:02 | P.PN ---
Date of Service: 09/27/24 Subjective: refused dressing changes this morning requesting Dr. Solorio to do dressing changes chronic left wound wrapped with foul odor. Dressing haven't been changed in a few days per patient refusing CPAP afebrile ROS: 10 point ROS as noted above, otherwise negative Physical Exam: GEN: Alert, NAD HEENT: Normal conjunctiva, sclera anicteric CV: Regular rate and rhythm, b/l lower extremity edema Pulm: Nonlabored respirations on 2l NC, diminished at bases b/l Integumentary: Chronic left wound with foul odor, legs wrapped in bandages Neuro: Normal speech, normal affect Problem List: Acute on chronic diastolic CHF exacerbation Obstructive sleep apnea / Obesity hypoventilation Chronic left lower extremity wound. iron deficiency anemia; chronic Congenital neutropenia Chronic pain syndrome Acute on chronic diastolic CHF exacerbation on admission, presents with worsening dyspnea for ~2 days Troponins negative, D-dimer elevated CTA chest (09/24): no evidence of PE allowing for limitations. Findings suggestive of central venous congestion or pulmonary edema. CXR (09/24): progressive interstitial prominence suggesting worsening CHF venous u/s (09/24): no DVT in BLE echo ordered to re-eval EF/stenosis; prior echo in march with normal 55-60%EF but was poor study Dr. Cha, pulm consulted continue IV lasix, duonebs Obstructive sleep apnea / Obesity hypoventilation CPAP at night as tolerated Patient refusing to wear CPAP Chronic left lower extremity wound. Chronic left wound with foul odor, legs wrapped in bandages - soaked in blood/fluid C consulted. continue local wound care. awaiting wound care to place wound vac; they need to be called in the am to come over to the hospital to place wound vac. Patient states that he needs to be sedated prior to procedure. Refused dressing change today - requesting Dr. Solorio to do the dressing changes. Last changed last iron deficiency anemia; chronic no obvious bleeding noted. No black/tarry stool. continue IV iron; s/p 1 of 8 bags Monitor H&H. Hgb fluctuating Congenital neutropenia Neupogen therapy as needed. neuriopenia shots started 09/27. Chronic pain syndrome resume home meds. norco 10/325, morphine as needed VTE: heparin sq Code: Full Dispo: home with , ~2-3 days Pending further diuresis , echo, improvement Time Spent Managing Pts Care (In Minutes): 55
[2024-09-27] MEDS: TBO-FILGRASTIM 300 MCG/0.5 ML SYR SQ SCH (09:03)
[2024-09-27] MEDS: COLLAGENASE 30 GM OINTMENT TOP SCH (10:37)
[2024-09-28 05:00] LABS: Absolute Basophils 0.1 K/uL (0-0.5); Absolute Monocytes 2.8 K/uL (0.1-1.3); Absolute Neutrophil 3.5 K/uL (1.8-8.0); Hematocrit 26.2 % (39.6-49.0); Hemoglobin 8.2 g/dL (13.6-17.9); Lymphocytes % 21.3 % (15.3-44.8); MCH 23.9 pg (27.0-35.0); MCHC 31.3 g/dL (32.0-36.0); MCV 76.5 fL (80-100); MPV 8.5 fL (7.6-11.3); Neutrophils % 37.4 % (41.7-73.7); Platelets 278 thou/uL (152-406); RBC Red Blood Cell Count 3.42 M/uL (4.33-5.43); Red Cell Distribution Width 25.9 % (12.1-15.2)
[2024-09-28 05:02] LABS: Monocytes % 29.3 % (3.3-12.3)
[2024-09-28 05:19] LABS: Anion Gap 6.3 mEq/L (5.0-15.0); Potassium 4.3 mEq/L (3.5-5.1)
--- NOTE | 2024-09-28 07:43 | ECHO ---
HEIGHT: 5 ft 2 in WEIGHT: 235 lb 0 oz DATE OF STUDY: 09/27/[address]: Apollo Ribeiro MD 2-DIMENSIONAL: YES M.MODE: YES DOPPLER: YES COLOR FLOW: YES TDS: YES PORTABLE: YES DEFINITY: NO BUBBLE STUDY: NO DIAGNOSIS: CONGESTIVE HEART FAILURE CARDIAC HISTORY: CATHERIZATION: NO SURGERY: NO PROSTHETIC VALVE: NO PACEMAKER: NO MEASUREMENTS (cm) DIASTOLIC (NORMALS) SYSTOLIC (NORMALS) IVSd 1.2 (0.6-1.2) LA Diam 2.9 (1.9-4.0) LVEF 60% LVIDd 4.8 (3.5-5.7) LVIDs 4.0 (2.0-3.5) %FS 18% LVPWd 1.3 (0.6-1.2) Ao Diam 2.9 (2.0-3.7) 2 DIMENSIONAL ASSESSMENT: RIGHT ATRIUM: NORMAL LEFT ATRIUM: NORMAL RIGHT VENTRICLE: NORMAL LEFT VENTRICLE: NORMAL TRICUSPID VALVE: TRACE OF TRICUSPID REGURGITATION MITRAL VALVE: NORMAL PULMONIC VALVE: NORMAL AORTIC VALVE: NORMAL PERICARDIAL EFFUSION: NONE AORTIC ROOT: NORMAL LEFT VENTRICULAR WALL MOTION: NORMAL. DOPPLER/COLOR FLOW: NORMAL. COMMENTS: 1. NORMAL LEFT VENTRICULAR SYSTOLIC FUNCTION, EJECTION FRACTION 60%, NORMAL WALL MOTION. 2. NORMAL DIASTOLIC FUNCTION. TECHNOLOGIST: FRANCISCO JAVIER MAYES
--- NOTE | 2024-09-28 09:05 | RAD REPORT ---
EXAMINATION: ONE VIEW CHEST XR CLINICAL INDICATION: f/u pulm edema TECHNIQUE: Frontal chest projection is submitted. Examination is limited by patient positioning and t echnique. COMPARISON: 09/24/2024 FINDINGS: Mild bilateral pulmonary opacities persist, appearing essentially unchanged. The heart is moderately enlarged. No displaced fractures identified. Left-sided venous catheters tip in the SVC. IMPRESSION: No significant change in CHF pattern since comparison study.
[2024-09-28] MEDS: FUROSEMIDE 40 MG/4 ML VIAL IV SCH (09:12)
--- NOTE | 2024-09-28 11:56 | P.PN ---
Date of Service: 09/28/24 Subjective: feels slight improvement but still short of breath when off oxygen reports generalized aches/pains still not wanting to change dressings - lst changed ~5-6 days ago discussed can be worsening things if not allowing to change dressing ROS: 10 point ROS as noted above, otherwise negative Physical Exam: GEN: Alert, NAD HEENT: Normal conjunctiva, sclera anicteric CV: Regular rate and rhythm, b/l lower extremity edema Pulm: Nonlabored respirations on 2l NC, diminished at bases b/l Integumentary: legwrapped in bandages Neuro: Normal speech, normal affect Problem List: Acute on chronic diastolic CHF exacerbation Obstructive sleep apnea / Obesity hypoventilation Chronic left lower extremity wound. iron deficiency anemia; chronic Congenital neutropenia Chronic pain syndrome Acute on chronic diastolic CHF exacerbation on admission, presents with worsening dyspnea for ~2 days Troponins negative, D-dimer elevated CTA chest (09/24): no evidence of PE allowing for limitations. Findings suggestive of central venous congestion or pulmonary edema. CXR (09/24): progressive interstitial prominence suggesting worsening CHF repeat CXR (09/28): no significant change in CHF pattern venous u/s (09/24): no DVT in BLE echo (09/27): 60% EF with normal wall notion Dr. Cha, pulm consulted continue IV lasix, duonebs lasix dose decreased 09/28 Obstructive sleep apnea / Obesity hypoventilation CPAP at night as tolerated Patient refusing to wear CPAP Chronic left lower extremity wound. legs wrapped in bandages [facility] consulted. continue local wound care. Patient states that he needs to be sedated prior to procedure. 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 No black/tarry stool. continue IV iron; s/p 3 of 8 bags Monitor H&H. Hgb fluctuating Congenital neutropenia Neupogen therapy as needed. neuriopenia shots started 09/27. Chronic pain syndrome resume home meds. norco 10/325, morphine as needed VTE: heparin sq Code: Full Dispo: home with , ~2 days Pending further diuresis, improvement Time Spent Managing Pts Care (In Minutes): 45
--- NOTE | 2024-09-28 15:39 | P.PN ---
Subjective Date of Service: 09/28/24 Chief Complaint: Obstructive sleep apnea Subjective: Improving (Patient is improving no new complaints shortness of breath has improved he was recently diagnosed with moderate ALLISON) Review of Systems General: Weakness Respiratory: Shortness of Breath Physical Examination - Vital Signs Temperature: 97.0 F Blood Pressure: 126/68 Pulse: 90 Respirations: 12 Pulse Ox (%): 98 - Physical Exam General: Alert, Oriented x3 Respiratory: Clear to auscultation bilaterally Cardiovascular: No edema, Regular rate/rhythm Assessment And Plan - Current Problems (Diagnosis) (1) CHF exacerbation Current Visit: Yes Status: Acute Plan: Patient's echocardiogram is normal most likely underlying diastolic dysfunction Qualifiers: Heart failure type: unspecified Qualified Code(s): I50.9 - Heart failure, unspecified (2) Microcytic anemia Current Visit: Yes Status: Acute Plan: Patient has severe microcytic anemia start patient on IV iron (3) Sleep apnea Current Visit: Yes Status: Acute Plan: Patient was recently diagnosed with obstructive sleep apnea trial of CPAP while in the hospital Machine order has been faxed to her [employer] patient's chest x-ray seems to have improved discharged home on low-dose spironolactone he also has underlying iron deficiency anemia currently on iron treatment Qualifiers: Primary sleep apnea of type: obstructive
[2024-09-29 04:51] LABS: Absolute Basophils 0.1 K/uL (0-0.5); Absolute Eosinophils 1.1 K/uL (0-0.5); Absolute Lymphocytes (CBC) 2.5 K/uL (0.7-4.9); Absolute Monocytes 2.9 K/uL (0.1-1.3); Absolute Neutrophil 1.6 K/uL (1.8-8.0); Basophils % 1.6 % (0-1.3); Eosinophils % 13.5 % (0-4.4); Hematocrit 27.1 % (39.6-49.0); Hemoglobin 8.6 g/dL (13.6-17.9); MCH 24.6 pg (27.0-35.0); MCHC 31.7 g/dL (32.0-36.0); MCV 77.6 fL (80-100); MPV 8.8 fL (7.6-11.3); Monocytes % 35.3 % (3.3-12.3); Neutrophils % 19.6 % (41.7-73.7); Platelets 333 thou/uL (152-406); RBC Red Blood Cell Count 3.49 M/uL (4.33-5.43); Red Cell Distribution Width 25.7 % (12.1-15.2)
[2024-09-29 05:05] LABS: Albumin/Globulin Ratio 0.3 (1.1-1.8); Anion Gap 7.3 mEq/L (5.0-15.0); Bilirubin Total 0.3 mg/dL (0.2-1.0); Globulin 6.4 g/dL (2.3-3.5); Potassium 4.3 mEq/L (3.5-5.1); Protein, Total 8.4 g/dL (6.4-8.2)
[2024-09-29 05:29] LABS: Band Neutrophils 3 % (0-1); Differential Total Cells Count 100; Eosinophils 12 % (0-3); Lymphocytes 45 % (15-42); Metamyelocytes 1 % (0-0); Monocytes 22 % (0-10); Reactive Lymphocytes 2 %; Segmented Neutrophils 11 % (40-80)
[2024-09-29 05:30] LABS: Anisocytosis 2+; Blood Morphology Comment NOTED (NOT SEEN); Platelet Estimate ADEQ; Polychromasia 1+
[2024-09-29] MEDS: HYDROMORPHONE HCL 0.5 MG/0.5 ML INJ IV PRN (10:31)
--- NOTE | 2024-09-29 11:48 | P.PN ---
Date of Service: 09/29/24 Subjective: allowed dressing change reports pain at wound sleeping most of day per nursing staff ROS: 10 point ROS as noted above, otherwise negative Physical Exam: GEN: Alert, NAD HEENT: Normal conjunctiva, sclera anicteric CV: Regular rate and rhythm, b/l lower extremity edema Pulm: Nonlabored respirations on 3l NC, diminished at bases b/l Integumentary: legwrapped in bandages Neuro: Normal speech, normal affect Problem List: Acute on chronic diastolic CHF exacerbation Obstructive sleep apnea / Obesity hypoventilation Chronic left lower extremity wound. iron deficiency anemia; chronic Congenital neutropenia Chronic pain syndrome Acute on chronic diastolic CHF exacerbation on admission, presents with worsening dyspnea for ~2 days Troponins negative, D-dimer elevated CTA chest (09/24): no evidence of PE allowing for limitations. Findings suggestive of central venous congestion or pulmonary edema. CXR (09/24): progressive interstitial prominence suggesting worsening CHF repeat CXR (09/28): no significant change in CHF pattern venous u/s (09/24): no DVT in BLE echo (09/27): 60% EF with normal wall motion Dr. Cha, pulm consulted continue IV lasix 40 mg daily, duonebs Spironolactone added 09/29 Obstructive sleep apnea / Obesity hypoventilation CPAP at night as tolerated Patient refusing to wear CPAP Chronic left lower extremity wound. legs wrapped in bandages [facility] consulted. continue local wound care. Patient states that he needs to be sedated prior to procedure. Refused dressing changes long h/o difficulty with dressing changes iron deficiency anemia; chronic no obvious bleeding noted. No black/tarry stool. continue IV iron; s/p 4 of 8 bags Monitor H&H. Hgb stable. Congenital neutropenia Neupogen therapy as needed. neuriopenia shots started 09/27. Chronic pain syndrome resume home meds. norco 10/325, morphine as needed VTE: heparin sq Code: Full Dispo: home with , ~2 days Pending further diuresis, improvement Time Spent Managing Pts Care (In Minutes): 45
[2024-09-29] MEDS: SPIRONOLACTONE 25 MG TABLET PO SCH (15:17)
[2024-09-29 16:53] LABS: Blood Gas Oxyhemoglobin 93.8 % (94-97); Blood O2 Saturation 96.7 % (92-98.5)
[2024-09-29 16:54] LABS: Arterial Blood Carboxyhemoglob 1.2 % (0-1.5)
[2024-09-29] MEDS: HYDROCODONE/APAP 10/325 TAB PO PRN (20:42)
[2024-09-30] MEDS: ONDANSETRON 4 MG/2 ML VIAL IV PRN (01:00)
--- NOTE | 2024-09-30 12:20 | P.PN ---
Date of Service: 09/30/24 Subjective: up most of night, sleeping most of day no dressing change allowed today ABG on RA done yesterday - normal ROS: 10 point ROS as noted above, otherwise negative Physical Exam: GEN: Alert, NAD HEENT: Normal conjunctiva, sclera anicteric CV: Regular rate and rhythm, b/l lower extremity edema Pulm: Nonlabored respirations on 2l NC, diminished at bases b/l Integumentary: legwrapped in bandages Neuro: Normal speech, normal affect Problem List: Acute on chronic diastolic CHF exacerbation Obstructive sleep apnea / Obesity hypoventilation Chronic left lower extremity wound. iron deficiency anemia; chronic Congenital neutropenia Chronic pain syndrome Acute on chronic diastolic CHF exacerbation on admission, presents with worsening dyspnea for ~2 days Troponins negative, D-dimer elevated CTA chest (09/24): no evidence of PE allowing for limitations. Findings suggestive of central venous congestion or pulmonary edema. CXR (09/24): progressive interstitial prominence suggesting worsening CHF repeat CXR (09/28): no significant change in CHF pattern venous u/s (09/24): no DVT in BLE echo (09/27): 60% EF with normal wall motion Dr. Cha, pulm consulted Spironolactone added 09/29 lower extremity edema slowly improving Obstructive sleep apnea / Obesity hypoventilation CPAP at night as tolerated Patient refusing to wear CPAP initially, now stating he will CPAP ordered for home - per Dr. Cha Chronic left lower extremity wound. legs wrapped in bandages [facility] consulted. continue local wound care. Patient states that he needs to be sedated prior to procedure. dressing changed yesterday, refusing today iron deficiency anemia; chronic no obvious bleeding noted. No black/tarry stool. continue IV iron; s/p 5 of 8 bags Monitor H&H. Hgb stable. Congenital neutropenia Neupogen therapy as needed. neuriopenia shots started 09/27. Chronic pain syndrome resume home meds. norco 10/325, morphine as needed VTE: heparin sq Code: Full Dispo: home with , ~1 day Pending further diuresis, improvement Time Spent Managing Pts Care (In Minutes): 45
[2024-09-30 12:29] LABS: Absolute Basophils 0.2 K/uL (0-0.5); Absolute Eosinophils 1.4 K/uL (0-0.5); Absolute Lymphocytes (CBC) 2.3 K/uL (0.7-4.9); Absolute Monocytes 2.6 K/uL (0.1-1.3); Absolute Neutrophil 0.8 K/uL (1.8-8.0); Basophils % 2.3 % (0-1.3); Eosinophils % 19.1 % (0-4.4); Hematocrit 28.6 % (39.6-49.0); Hemoglobin 8.9 g/dL (13.6-17.9); Lymphocytes % 31.5 % (15.3-44.8); MCH 24.3 pg (27.0-35.0); MCV 78.3 fL (80-100); MPV 8.8 fL (7.6-11.3); Monocytes % 35.5 % (3.3-12.3); Neutrophils % 11.6 % (41.7-73.7); Platelets 373 thou/uL (152-406); RBC Red Blood Cell Count 3.66 M/uL (4.33-5.43); Red Cell Distribution Width 25.4 % (12.1-15.2)
[2024-09-30 12:40] LABS: Anion Gap 6.5 mEq/L (5.0-15.0); Magnesium 2.1 mg/dL (1.6-2.4); Potassium 4.5 mEq/L (3.5-5.1)
[2024-09-30] MEDS: HYDROCODONE/APAP 10/325 TAB PO PRN (20:44)
[2024-10-01 06:31] LABS: Anion Gap 6.5 mEq/L (5.0-15.0); Magnesium 2.2 mg/dL (1.6-2.4); Potassium 4.5 mEq/L (3.5-5.1)
[2024-10-01 14:59] VITALS: O2SAT 93
--- NOTE | 2024-10-01 15:51 | P.PN ---
Date of Service: 10/01/24 Subjective: feels run down today, short of breath room air sat 93-94% while awake refusing wound care dressing again refusing to ambulate to check RA sats with ambulation ROS: 10 point ROS as noted above, otherwise negative Physical Exam: GEN: Alert, NAD HEENT: Normal conjunctiva, sclera anicteric CV: Regular rate and rhythm, b/l lower extremity edema Pulm: Nonlabored respirations on 2l NC, diminished at bases b/l Integumentary: leg wrapped in bandages Neuro: Normal speech, normal affect Problem List: Acute on chronic diastolic CHF exacerbation Obstructive sleep apnea / Obesity hypoventilation Chronic left lower extremity wound. iron deficiency anemia; chronic Congenital neutropenia Chronic pain syndrome Acute on chronic diastolic CHF exacerbation on admission, presents with worsening dyspnea for ~2 days Troponins negative, D-dimer elevated CTA chest (09/24): no PE, allowing for limitations. Findings suggestive of central venous congestion or pulmonary edema. CXR (09/24): progressive interstitial prominence suggesting worsening CHF repeat CXR (09/28): no significant change in CHF pattern venous u/s (09/24): no DVT in BLE echo (09/27): 60% EF with normal wall motion Dr. Cha, pulm consulted Spironolactone added 09/29 lasix dc'd lower extremity edema slowly improving ABG on room air, and room air sats done over last 2-3 days, 92+% on room air sats drop when sleeping. patient not wanting to sit up and prefers spending most of day laying on back / sleeping Obstructive sleep apnea / Obesity hypoventilation CPAP at night as tolerated Patient refusing to wear CPAP initially, now stating he will has had CPAP and O2 concentrator at home for many years, unused CPAP ordered for home - per Dr. Cha Chronic left lower extremity wound. legs wrapped in bandages continues to refuse dressing changes has only allowed change once iron deficiency anemia; chronic no obvious bleeding noted. No black/tarry stool. continue IV iron; s/p 5 of 8 bags Monitor H&H. Hgb stable. Congenital neutropenia Neupogen therapy as needed. neuriopenia shots started 09/27. Chronic pain syndrome resume home meds. norco 10/325, morphine as needed VTE: heparin sq Code: Full Dispo: home with , ~1 day Pending further improvement Time Spent Managing Pts Care (In Minutes): 45
--- NOTE | 2024-10-02 09:05 | P.DS ---
Admission Date: 09/24/24 Discharge Date: 10/02/24 Disposition: DC HOME/HOME HEALTH CARE Discharge Condition: FAIR Reason for Admission: Obstructive sleep apnea Consultations: Pulmonology - Dr. Cha Brief History of Present Illness: 34yo M, PMH: obesity, chronic anemia, ALLISON, chronic left lower extremity wound, and CHF Patient presented to the emergency room complaining of dyspnea x 2 days. The patient is not on home oxygen. He is a former smoker who quit 20 years ago. The patient states that he has a history of CHF exacerbations, but does not recall the last one. Per chart review, the patient was here in March 2024 for for shortness of breath. His BNP at that time was 111, and today it is 3673. Upon arrival to the ED, the patient was found to have an elevated D-dimer, negative troponin. He denies fever. Hospital Course: Problem List: Acute on chronic diastolic CHF exacerbation Obstructive sleep apnea / Obesity hypoventilation Chronic left lower extremity wound. iron deficiency anemia; chronic Congenital neutropenia Chronic pain syndrome Physician discharge instructions: Patient presents with worsening dyspnea, lower extremity edema for ~2 days secondary to acute on chronic CHF exacerbation. Troponin's were negative x3. D-dimer elevated 1.152. CTA chest was negative for PE, with findings suggestive of central venous congestion or pulmonary edema. Venous ultrasound was negative for DVT. Echocardiogram 09/27 with normal 60-65% EF and normal wall motion. Dr. Cha, Pulm was consulted. Patient was started on IV lasix and had improvement of his symptoms. Dr. Cha recommended adding spironolactone in addition to lasix. He was diuresed for several days, with daily improvement. Patient was feeling better, breathing more comfortably, lower extremity edema improved, and was deemed stable for discharge. In regards to sleep apnea, Dr. Cha ordered CPAP for home use. Patient was also noted to be quite anemic this hospitalization. Hemoglobin levels fluctuated but remained stable in 7-8s. No blood transfusions required. No obvious bleeding or black tarry stools. He received 6 bags of IV iron infusions while hospitalized for iron deficiency. Medications: Spironolactone 25 mg daily continue other home medications as previously prescribed Follow up: PCP 3-5 days Pulmonology 2-4 weeks Cardiology 2-4 weeks [facility]ound healing center for continued local wound care of chronic wounds. Please call to schedule / confirm appointments HOME HEALTH TO RESUME WITH: [facility] P:[phone] Physical Exam: GEN: Alert, NAD HEENT: Normal conjunctiva, sclera anicteric CV: Regular rate and rhythm,no edema Pulm: Nonlabored respirations on room air, clear bilaterallyl Integumentary: leg wrapped in bandages Neuro: Normal speech, normal affect Vital Signs/Physical Exam: Temp Pulse Resp BP Pulse Ox 98.0 F 93 H 12 168/69 H 97 10/02/24 08:00 10/02/24 08:00 10/02/24 08:00 10/02/24 08:00 10/02/24 08:00 Laboratory Data at Discharge: WBC 7.20 thou/uL (4.3-10.9) 09/30/24 12:10 Hgb 8.9 g/dL (13.6-17.9) L 09/30/24 12:10 Hct 28.6 % (39.6-49.0) L 09/30/24 12:10 Plt Count 373 thou/uL (152-406) 09/30/24 12:10 Sodium 134 mEq/L (136-145) L 10/01/24 05:45 Potassium 4.5 mEq/L (3.5-5.1) 10/01/24 05:45 BUN 17 mg/dL (7-18) 10/01/24 05:45 Creatinine 1.15 mg/dL (0.70-1.30) 10/01/24 05:45 Glucose 121 mg/dL (74-106) H 10/01/24 05:45 Phosphorus 4.6 mg/dL (2.5-4.9) 09/27/24 05:30 Magnesium 2.2 mg/dL (1.6-2.4) 10/01/24 05:45 Total Bilirubin 0.3 mg/dL (0.2-1.0) 09/29/24 04:30 AST 14 U/L (15-37) L 09/29/24 04:30 ALT 16 U/L (16-61) 09/29/24 04:30 Alkaline Phosphatase 100 U/L (45-117) 09/29/24 04:30 Triglycerides 194 mg/dL (<150) H 09/25/24 07:59 Cholesterol 104 mg/dL (<200) 09/25/24 07:59 HDL Cholesterol 9 mg/dL (40-60) L 09/25/24 07:59 Cholesterol/HDL Ratio 11.56 09/25/24 07:59 Home Medications: Hydrocodone 10/APAP 325 [[place] 10/325*] 1 tab PO Q12HR PRN 09/02/24 Naproxen 500 mg PO BID 09/02/24 methocarbamoL [Robaxin*] 750 mg PO BID 09/02/24 Spironolactone [Aldactone*] 25 mg PO DAILY 30 Days #30 tab 10/02/24 New Medications: Spironolactone [Aldactone*] 25 mg PO DAILY 30 Days #30 tab Physician Discharge Instructions: Physician discharge instructions: Patient presents with worsening dyspnea, lower extremity edema for ~2 days secondary to acute on chronic CHF exacerbation. Troponin's were negative x3. D-dimer elevated 1.152. CTA chest was negative for PE, with findings suggestive of central venous congestion or pulmonary edema. Venous ultrasound was negative for DVT. Echocardiogram 09/27 with normal 60-65% EF and normal wall motion. Dr. Cha, Pulm was consulted. Patient was started on IV lasix and had improvement of his symptoms. Dr. Cha recommended adding spironolactone in addition to lasix. He was diuresed for several days, with daily improvement. Patient was feeling better, breathing more comfortably, lower extremity edema improved, and was deemed stable for discharge. In regards to sleep apnea, Dr. Cha ordered CPAP for home use. Patient was also noted to be quite anemic this hospitalization. Hemoglobin levels fluctuated but remained stable in 7-8s. No blood transfusions required. No obvious bleeding or black tarry stools. He received 6 bags of IV iron infusions while hospitalized for iron deficiency. Medications: Spironolactone 25 mg daily continue other home medications as previously prescribed Follow up: PCP 3-5 days Pulmonology 2-4 weeks Cardiology 2-4 weeks Wound healing center for continued local wound care of chronic wounds. Please call to schedule / confirm appointments HOME HEALTH TO RESUME WITH: [facility] P:[phone] Followup: Joyce Boone MD [Primary Care Provider] - Time spent managing pt's care (in minutes): 45
[2024-10-02 12:46] VITALS: TEMP 98.3
[2024-10-02 16:36] VITALS: BP 137/65
== END 2024-10-02 18:10 | disposition home health service (06) | DRG 291 ==
LOC: ER 12:50 → ERHOLD 21:50 → 2ND 22:43
PROVIDERS: ADMIT Internal Medicine; ATTEND Hospitalist
PROC: 4A033R1 Measurement of Arterial Saturation, Peripheral, Percutaneous Approach (ICD-10-PCS; principal; 2024-09-24)
PROC: 5A09557 Assistance with Respiratory Ventilation, Greater than 96 Consecutive Hours, Continuous Positive Airway Pressure (ICD-10-PCS; 2024-09-24)
PROC: 02HV33Z Insertion of Infusion Device into Superior Vena Cava, Percutaneous Approach (ICD-10-PCS; 2024-09-24)
DX: I11.0 Hypertensive heart disease with heart failure (principal); I50.33 Acute on chronic diastolic (congestive) heart failure; J96.01 Acute respiratory failure with hypoxia; N17.9 Acute kidney failure, unspecified; E66.2 Morbid (severe) obesity with alveolar hypoventilation; Z68.41 Body mass index [BMI] 40.0-44.9, adult; L03.116 Cellulitis of left lower limb; D50.9 Iron deficiency anemia, unspecified; G89.4 Chronic pain syndrome; D70.0 Congenital agranulocytosis; Z88.1 Allergy status to other antibiotic agents; Z87.891 Personal history of nicotine dependence; Z79.899 Other long term (current) drug therapy
CPT/HCPCS: 36415; 36556; 36600; 71045; 71275; 80048; 80053; 80061; 80069; 80076; 81001; 82550; 82805; 83605; 83735; 83880; 84100; 84145; 84443; 84484; 85025; 85027; 85379; 86850; 86900; 86901; 93005; 93306; 93970; 94640; 94660; 94760; 96372; 96374; 96375; 99285; J1171; J1447; J1644; J1940; J2270; J2405; J2470; J2916; J3590; J7613; J7644; Q9967

== ENCOUNTER 2024-10-20 13:46 | Inpatient (IN) | payer OTHER ==
[2024-10-20] MEDS ORDERED: ACETAMINOPHEN 500 MG TAB ONE (15:19)
[2024-10-20] MEDS ORDERED: FENTANYL CITR 100 MCG/2 ML ONE (15:20)
[2024-10-20 15:27] LABS: Absolute Eosinophils 0.2 K/uL (0-0.5); Absolute Lymphocytes (CBC) 0.8 K/uL (0.7-4.9); Absolute Monocytes 1.5 K/uL (0.1-1.3); Eosinophils % 6.3 % (0-4.4); Hematocrit 26.3 % (39.6-49.0); Hemoglobin 8.7 g/dL (13.6-17.9); Lymphocytes % 32.2 % (15.3-44.8); MCHC 33.1 g/dL (32.0-36.0); MCV 78.5 fL (80-100); MPV 7.4 fL (7.6-11.3); Monocytes % 60.4 % (3.3-12.3); Neutrophils % 1.1 % (41.7-73.7); Nucleated Red Blood Cells % 0.1 % (0-0); Platelets 463 thou/uL (152-406); RBC Red Blood Cell Count 3.35 M/uL (4.33-5.43)
[2024-10-20 15:31] LABS: PT Prothrombin Time 16.2 SECONDS (9.4-12.5); PTT, Activated Partial Thromb 29.8 SECONDS (24.3-36.9); Protime INR 1.46
--- NOTE | 2024-10-20 15:33 | RAD REPORT ---
EXAMINATION: ONE VIEW CHEST XR CLINICAL INDICATION: FEVER TECHNIQUE: Frontal chest projection is submitted. Examination is limited by patient positioning and t echnique. COMPARISON: 09/28/2024 FINDINGS: Mild prominence of the pulmonary interstitial markings suggest mild interstitial edema. The heart is moderately enlarged. No displaced fractures identified. IMPRESSION: Mild CHF pattern suspected.
[2024-10-20 15:40] LABS: Albumin 2.2 g/dL (3.4-5.0); Albumin/Globulin Ratio 0.3 (1.1-1.8); Alkaline Phosphatase 55 U/L (45-117); Anion Gap 8.4 mEq/L (5.0-15.0); BUN Blood Urea Nitrogen 14 mg/dL (7-18); Bicarbonate 29 mEq/L (21-32); Bilirubin Total 0.5 mg/dL (0.2-1.0); Globulin 6.3 g/dL (2.3-3.5); Glomerular Filtration Rate 84 ml/min (=/>90); Glucose Level 169 mg/dL (74-106); Lipase 9 U/L (13-75); Potassium 4.4 mEq/L (3.5-5.1); Protein, Total 8.5 g/dL (6.4-8.2); Sodium Level 130 mEq/L (136-145)
[2024-10-20] MEDS ORDERED: ONDANSETRON 4 MG/2 ML VIAL ONE (15:44)
[2024-10-20 15:59] LABS: ALT/SGPT < 14 U/L (16-61); AST/SGOT < 10 U/L (15-37)
[2024-10-20 16:08] LABS: Specific Gravity 1.015 (1.005-1.030); Sqamous Epithelial None Seen /HPF (None Seen); Urine Bacteria <20 /HPF (<20); Urine Bilirubin NEGATIVE (Negative); Urine Blood Trace (Negative); Urine Clarity Clear (Clear); Urine Color Light-Yellow (Yellow); Urine Culture Reflex Order NOT NEEDED; Urine Glucose NEGATIVE (Negative); Urine Ketones NEGATIVE (Negative); Urine Microscopic Reflex YN ORDER UMIC; Urine Nitrite NEGATIVE (Negative); Urine Protein NEGATIVE (Negative); Urine RBC <5 /HPF (None Seen); Urine Urobilinogen Normal (Normal); Urine WBC None Seen /HPF (<5); Urine pH 6.5 (5.0-7.0)
[2024-10-20 16:22] LABS: SARS-CoV-2 Antigen CONTROL BLUE LINE VIS/BG OK; SARS-CoV-2 Antigen Rapid Res Negative (Negative)
[2024-10-20] MEDS ORDERED: IBUPROFEN 400 MG TAB ONE (16:57)
--- NOTE | 2024-10-20 17:13 | RAD REPORT ---
EXAM: CT CHEST, ABDOMEN AND PELVIS WITH CONTRAST CLINICAL INDICATION: fever, abdominal pain TECHNIQUE: CT chest, abdomen and pelvis was performed, following the administration of contrast, as p er department protocol. Axial, sagittal and coronal reconstructions were obtained. One or more of the following dose reduction techniques were used: Automated exposure control, adjustment of the mA a nd/or kV according to patient size, and/or iterative reconstruction. Unless otherwise specified, incidental findings do not require dedicated imaging follow-up. COMPARISON: No prior exam. FINDINGS: LUNGS: No evidence of airspace or interstitial process. No nodules. PLEURA: No pleural effusion. No pneumothorax. MEDIASTINUM AND LYMPH NODES: No mediastinal mass or fluid collection. Normal size mediastinal, hilar, and axillary lymph nodes. OSSEOUS STRUCTURES AND CHEST WALL: Intact. LIVER: The liver appears enlarged compatible with hepatomegaly. Diffuse fatty liver noted. Cholelithi asis. PANCREAS: No mass, ductal dilation, or aramis-pancreatic fluid. SPLEEN: Normal size. No focal lesion. ADRENALS: Normal; no mass. KIDNEYS: Normal size and contour. No hydronephrosis. URINARY BLADDER: Normal contour. GASTROINTESTINAL TRACT: No bowel obstruction, free air, significant free fluid or abscess. APPENDIX: Normal appendix. LYMPH NODES: No lymphadenopathy. MUSCULOSKELETAL: No acute or suspicious osseous abnormality. OTHER: Small fat-containing umbilical hernia. IMPRESSION: Mild hepatomegaly. Diffuse fatty liver infiltration. Cholelithiasis.
[2024-10-20] MEDS ORDERED: VANCOMYCIN 1 GM/VIAL ONE (17:33)
[2024-10-20] MEDS ORDERED: NA CHLORIDE 0.9% 250 ML ONE (17:33)
[2024-10-20] MEDS ORDERED: NA CHLORIDE 0.9% 100 ML ONE (17:34)
--- NOTE | 2024-10-20 18:27 | EDPHYS ---
Physician Documentation [facility] Name: Abel Maria Age: 34 yrs Sex: Male : 1990 Arrival Date: 10/20/2024 Time: 13:46 Bed 8 Private MD: ED Physician Dawit Beasley HPI: 10/20 14:45 This 34 yrs old Male presents to ER via EMS with complaints of Fever. cp 14:45 The patient reports fever, with an emergency department temperature of 102.1 degrees cp Fahrenheit. Onset: The symptoms/episode began/occurred today. Associated signs and symptoms: Pertinent positives: abdominal pain, increased pain to left lower leg, Pertinent negatives: cough, shortness of breath, vomiting. Severity of symptoms: in the emergency department the symptoms are unchanged despite EMS interventions. 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 - Infectious Disease History:: Denies. - Social history:: Smoking status: Patient denies any tobacco usage or history of. ROS: 14:49 Eyes: Negative for injury, pain, redness, and discharge, cp 14:49 Constitutional: Positive for fever, 14:49 Cardiovascular: Negative for chest pain, 14:49 Respiratory: Negative for cough, shortness of breath, 14:49 Abdomen/GI: Positive for abdominal pain, nausea, 14:49 MS/extremity: Positive for pain, of the left lower leg, chronic wound, 14:49 Neuro: Negative for altered mental status, dizziness, headache, weakness, cp 14:49 All other systems are negative, cp Exam: 14:50 Constitutional: The patient appears in no acute distress, alert, awake, non-toxic, well cp developed, well nourished, febrile, obese, uncomfortable, 14:50 Head/Face: Normocephalic, atraumatic. cp 14:50 Eyes: Periorbital structures: appear normal, Conjunctiva: normal, no exudate, no cp injection, Sclera: no appreciated abnormality, Lids and lashes: appear normal, bilaterally, 14:50 ENT: External ear(s): are unremarkable, Nose: is normal, Mouth: Lips: moist, Oral mucosa: moist, 14:50 Neck: ROM/movement: is normal, is supple, without pain, no range of motions limitations, 14:50 Chest/axilla: Inspection: normal, 14:50 Cardiovascular: Rate: tachycardic, Rhythm: regular, Edema: ankle edema, that is mild, 14:50 Respiratory: the patient does not display signs of respiratory distress, Respirations: normal, no use of accessory muscles, no retractions, labored breathing, is not present, Breath sounds: are clear throughout, no decreased breath sounds, no stridor, no wheezing, 14:50 Abdomen/GI: Inspection: wound to right lower abdomen with mild erythema, mild bloody drainage, marked tenderness to palpation, Bowel sounds: active, all quadrants, 14:50 Back: pain, is absent, ROM is normal, 14:50 Neuro: Orientation: to person, place \T\ time. Mentation: is normal, Motor: moves all fours, strength is normal, Sensation: is normal, 16:35 ECG was reviewed by the Attending Physician. cp Vital Signs: 14:30 BP 130 / 60; Pulse 117; Resp 24 S; Temp 102.1(O); Pulse Ox 96% on R/A; Weight 104.33 kg aa5 (R); Height 5 ft. 2 in. (R); 16:30 BP 134 / 58; Pulse 105; Resp 20 S; Temp 100.7(O); Pulse Ox 99% on R/A; aa5 17:44 BP 117 / 74; Pulse 102; Resp 19; Temp 99.8(O); Pulse Ox 95% on R/A; rs5 18:33 BP 122 / 67; Pulse 97; Resp 19; Pulse Ox 98% on R/A; rs5 19:00 BP 129 / 64; Pulse 75; Resp 18; Pulse Ox 100% on R/A; al5 20:00 BP 104 / 58; Pulse 79; Resp 18; Pulse Ox 96% on R/A; al5 14:30 Body Mass Index 42.07 (104.33 kg, 157.48 cm) aa5 MDM: 17:16 Data reviewed: vital signs, nurses notes, lab test result(s), EKG, radiologic studies, cp CT scan, plain films. ED course: VS noted. will give acetaminophen and ibuprofen for fever, only 250 mL NS due to PMHX significant for CHF and 1 gram Vancomycin for left lower leg cellulitic chronic wound. 17:22 ED course: consult with DR Solorio who wants wound care consult and patient can be cp admitted to hospitalist. 18:27 Medical Screening Exam initiated cp 18:30 Management of patient was discussed with the following: Hospitalist: DR Gabriel who will cp admit after discussion. Discussed DR Solorio requests to consult wound care for management of wounds to RLQ abdomen and left lower leg. 10/20 14:37 Order name: CBC with Diff 10/20 16:28 Interpretation: Normal except: WBC 2.40; RBC 3.35; HGB 8.7; HCT 26.3; MCV 78.5; MCH cp 26.0; PLT 463; RDW 24.0; MPV 7.4; MEENU% 1.1; MN% 60.4; EOSINOPHIL % 6.3; NEUT A 0.0; MNA 1.5. 10/20 14:37 Order name: CMP; Complete Time: 16:28 10/20 16:29 Interpretation: Normal except: NA 130; CL 97; GLUC 169; GFR 84; AST < 10; ALT < 14; TP cp 8.5; ALB 2.2; GLOB 6.3; A/G 0.3. 10/20 14:37 Order name: Lipase; Complete Time: 16:28 10/20 14:37 Order name: Urinalysis w/ reflexes; Complete Time: 16:28 10/20 14:37 Order name: Influenza Screen (a \T\ B); Complete Time: 17:14 10/20 14:37 Order name: SARS RAPID; Complete Time: 16:28 10/20 14:43 Order name: Blood Culture Adult (2) 10/20 14:43 Order name: Lactate w/ 2H reflex if indic.; Complete Time: 15:46 10/20 15:47 Interpretation: Reviewed. 10/20 14:43 Order name: Protime (+inr); Complete Time: 15:46 10/20 14:43 Order name: Ptt, Activated; Complete Time: 15:46 10/20 18:17 Order name: Wound Culture 10/20 18:47 Order name: Manual Differential EDMS 10/20 18:58 Order name: Osmolality, Serum EDMS 10/20 18:58 Order name: Osmolality, Urine EDMS 10/20 18:58 Order name: UR SODIUM EDMS 10/20 19:32 Order name: Urinalysis w/ reflexes EDMS 10/20 19:32 Order name: CBC with Automated Diff EDMS 10/20 19:32 Order name: CBC with Automated Diff EDMS 10/20 19:32 Order name: Comprehensive Metabolic Panel [facility] 10/20 19:32 Order name: Comprehensive Metabolic Panel [facility] 10/20 14:43 Order name: Chest Single View XRAY; Complete Time: 15:46 10/20 15:47 Interpretation: Report review. 10/20 16:30 Order name: CT Chest, Abdomen, Pelvis - W/Contrast; Complete Time: 17:14 10/20 14:43 Order name: EKG; Complete Time: 14:44 10/20 14:37 Order name: IV Saline Lock; Complete Time: 15:17 10/20 14:37 Order name: Labs collected and sent; Complete Time: 15:17 10/20 14:43 Order name: Accucheck; Complete Time: 15:57 10/20 14:43 Order name: Cardiac monitoring; Complete Time: 15:17 10/20 14:43 Order name: EKG - Nurse/Tech; Complete Time: 16:38 10/20 14:43 Order name: IV Saline Lock - Large Bore; Complete Time: 15:17 10/20 14:43 Order name: O2 Per Protocol; Complete Time: 15:17 10/20 14:43 Order name: O2 Sat Monitoring; Complete Time: 15:17 10/20 14:43 Order name: Vital Signs; Complete Time: 15:17 cp EC:35 Rate is 103 beats/min. Rhythm is regular. SD interval is normal. QRS interval is cp normal. QT interval is normal. T waves are Inverted in lead aVR. Interpreted by me. Reviewed by me. Administered Medications: 15:25 Drug: Acetaminophen PO 1000 mg PO once Route: PO; aa5 20:14 Follow up: Response: No adverse reaction; Temperature is decreased al5 15:25 Drug: fentaNYL (PF) IVP 50 mcg IVP once Route: IVP; Site: right forearm; aa5 20:15 Follow up: Response: No adverse reaction; Pain is decreased al5 15:57 Drug: Ondansetron IVP 4 mg IVP once; over 2 minutes Route: IVP; Site: right wrist; rs5 20:15 Follow up: Response: No adverse reaction; Nausea is decreased al5 17:01 Drug: Ibuprofen PO 800 mg PO once Route: PO; rs5 20:15 Follow up: Response: No adverse reaction; Temperature is decreased al5 17:22 Drug: NS 0.9% IV 250 ml IV at bolus once; to be given as a bolus over 60 minutes Route: rs5 IV; Rate: bolus; Site: right wrist; 20:15 Follow up: Response: No adverse reaction; IV Status: Completed infusion; IV Intake: al5 250ml 17:30 Drug: vancoMYCIN IVPB 1 grams IVPB once over 2 hrs Route: IVPB; Infused Over: 2 hrs; rs5 Site: right wrist; 20:15 Follow up: Response: No adverse reaction; IV Status: Completed infusion; IV Intake: al5 250ml Disposition Summary: 10/20/24 18:27 Hospitalization Ordered Notes: Hospitalization Status: Inpatient Admission cp Provider: Sal Gabriel cp Location: Telemetry/[facility] (Inpatient) cp Condition: Stable cp Problem: new cp Symptoms: have improved cp Bed/Room Type: Standard cp Room Assignment: 430(10/20/24 20:06) vc1 Diagnosis - Unspecified open wound, left lower leg cp - Unspecified open wound of abdominal wall, right lower quadrant without penetration cp into peritoneal cavity, subsequent encounter - Sepsis, unspecified organism cp Forms: - Medication Reconciliation Form cp - SBAR form cp - Leadership Thank You Letter cp Critical care time excluding procedures: 10/21 14:12 Critical care time: Bedside Care: 5 minutes, Consultation: 25 minutes. Total time: 30 cp minutes Addendum: 10/27/2024 07:35 I was immediately available for consultation during this patient's visit. I did not e c2 personally see the patient or discuss the patient with the DAGO. . Signatures: Dispatcher [employer] Sandra Manzanares RN RN aa5 Castillo Gipson PA PA cp Calcote, Vanessa RN RN vc1 Ryan Church, RN RN rs5 Dawit Beasley MD MD ec2 Adriana Forrester RN al5 Corrections: (The following items were deleted from the chart) 10/20 14:37 14:37 CBC+H.LAB.BRZ ordered. EDMS EDMS 14:37 14:37 COMPREHENSIVE METABOLIC PANEL+C.LAB.BRZ ordered. EDMS EDMS 14:37 14:37 LIPASE+C.LAB.BRZ ordered. EDMS EDMS 14:37 14:37 Urinalysis+U.LAB.BRZ ordered. EDMS EDMS 14:37 14:37 Influenza Screen (A \T\ B)+BA.LAB.BRZ ordered. EDMS EDMS 14:37 14:37 SARS-COV-2 Antigen Rapid+I.LAB.BRZ ordered. EDMS EDMS 14:43 14:42 PMHx: Chronic leg wound (leg); aa5 aa5 14:43 14:42 PMHx: Chronic wound to RLQ (Unknown); aa5 aa5 20:06 18:27 cp vc1
--- NOTE | 2024-10-20 18:27 | ER ---
Nurse's Notes [facility] Name: Abel Maria Age: 34 yrs Sex: Male : 1990 Arrival Date: 10/20/2024 Time: 13:46 Bed 8 Private MD: Diagnosis: Unspecified open wound, left lower leg;Unspecified open wound of abdominal wall, right lower quadrant without penetration into peritoneal cavity, subsequent encounter;Sepsis, unspecified organism Presentation: 10/20 14:30 Chief complaint: Patient states: "home health nurse sent me here for fever, I've had aa5 one on and off for about 3 days". Pt also reports nausea, denies vomiting. Coronavirus screen: fever. Ebola Screen: Patient denies travel to an Ebola-affected area in the 21 days before illness onset. Initial Sepsis Screen: Does the patient meet any 2 criteria? RR > 20 per min. Temp <36.0*C (96.8*F)) or > 38.3*C (100.9*F). HR > 90 bpm. Yes Does the patient have a suspected source of infection?. Risk Assessment: Do you want to hurt yourself or someone else? Patient reports no desire to harm self or others. Onset of symptoms was October 2024. 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 - Infectious Disease History:: Denies. - Social history:: Smoking status: Patient denies any tobacco usage or history of. Screenin:30 [facility] ED Fall Risk Assessment (Adult) History of falling in the last 3 months, aa5 including since admission Yes- single mechanical fall (1 pt) Confusion or Disorientation No (0 pts) Intoxicated or Sedated No (0 pts) Impaired Gait Yes (1 pt) Mobility Assist Device Used Yes (1 pt) Altered Elimination No (0 pt) Score/Fall Risk Level 3 or more points = High Risk Oriented to surroundings, Maintained a safe environment, Educated pt \\T\\ family on fall prevention, incl call for assistance when getting out of bed. Abuse screen: Denies threats or abuse. Nutritional screening: No deficits noted. Tuberculosis screening: No symptoms or risk factors identified. Assessment: 14:30 General: Appears comfortable, Behavior is calm, cooperative. Pain: Complains of pain in aa5 right lower quadrant and left calf Pain currently is 8 out of 10 on a pain scale. Quality of pain is described as burning, aching, stinging, Pain began years ago. Is continuous, Aggravated by touch. Neuro: Level of Consciousness is awake, alert, obeys commands, Oriented to person, place, time, situation. Cardiovascular: Heart tones S1 S2 present Rhythm is regular. Respiratory: Airway is patent Respiratory effort is even, unlabored, Respiratory pattern is regular, symmetrical. GI: Abdomen is obese, Bowel sounds present X 4 quads. Reports nausea, Patient currently denies vomiting. : No signs and/or symptoms were reported regarding the genitourinary system. EENT: No signs and/or symptoms were reported regarding the EENT system. Derm: Skin is dry, Skin is normal, Skin temperature is hot Large open wound noted to left calf that is red and smaller open wounds noted to RLQ x 3 that are red and macerated. Musculoskeletal: Range of motion: intact in all extremities. 15:25 Reassessment: Phlebotomy was contacted for 2nd set of blood cultures, pt is a hard aa5 stick. . 15:25 Reassessment: Pt resting in bed with eyes closed, respirations are even and unlabored. .aa5 16:30 Reassessment: Patient is alert, oriented x 3, equal unlabored respirations, skin aa5 warm/dry/pink. 16:45 Reassessment: Pt refusing 2nd stick for blood cultures. Phlebotomy unavailable, Adriana Avitia, RN witnessed pt refusal. . 17:55 Reassessment: Patient and/or family updated on plan of care and expected duration. Pain rs5 level reassessed. Patient is alert, oriented x 3, equal unlabored respirations, skin warm/dry/pink. 18:33 Reassessment: Patient and/or family updated on plan of care and expected duration. Pain rs5 level reassessed. Patient is alert, oriented x 3, equal unlabored respirations, skin warm/dry/pink. 19:25 General: Appears in no apparent distress. Behavior is calm, cooperative. Pain: al5 Complains of pain in left calf. Neuro: Level of Consciousness is awake, alert, obeys commands, Oriented to person, place, time, situation. Cardiovascular: Capillary refill < 3 seconds Patient's skin is warm and dry. Rhythm is sinus rhythm. Respiratory: Airway is patent Respiratory effort is even, unlabored, Respiratory pattern is regular, symmetrical. Derm: large wound on left calf that is red and hot, has wound to RLQ that is also red. Vital Signs: 14:30 BP 130 / 60; Pulse 117; Resp 24 S; Temp 102.1(O); Pulse Ox 96% on R/A; Weight 104.33 kg aa5 (R); Height 5 ft. 2 in. (R); 16:30 BP 134 / 58; Pulse 105; Resp 20 S; Temp 100.7(O); Pulse Ox 99% on R/A; aa5 17:44 BP 117 / 74; Pulse 102; Resp 19; Temp 99.8(O); Pulse Ox 95% on R/A; rs5 18:33 BP 122 / 67; Pulse 97; Resp 19; Pulse Ox 98% on R/A; rs5 19:00 BP 129 / 64; Pulse 75; Resp 18; Pulse Ox 100% on R/A; al5 20:00 BP 104 / 58; Pulse 79; Resp 18; Pulse Ox 96% on R/A; al5 14:30 Body Mass Index 42.07 (104.33 kg, 157.48 cm) aa5 ED Course: 14:22 Patient arrived in ED. ec2 14:23 Castillo Gipson PA is PHCP. cp 14:24 Dawit Beasley MD is Attending Physician. cp 14:30 Arm band placed on Patient placed in an exam room, on a stretcher. aa5 14:30 Patient has correct armband on for positive identification. Placed in gown. Bed in low aa5 position. Call light in reach. Side rails up X2. Client placed on continuous cardiac and pulse oximetry monitoring. NIBP monitoring applied. clinical research monitor on. Pulse ox on. NIBP on. 14:39 Sandra Coffey, SONG is Primary Nurse. aa5 14:42 Triage completed. aa5 15:14 Initial lab(s) drawn, by me, sent to lab. First set of blood cultures drawn by me. aa5 15:25 Inserted saline lock: 20 gauge in right forearm, using aseptic technique. Flushed with aa5 10 mL NS. 15:27 Chest Single View XRAY In Process Unspecified. EDMS 17:00 No provider procedures requiring assistance completed. aa5 17:03 CT Chest, Abdomen, Pelvis - W/Contrast In Process Unspecified. EDMS 17:26 Second set of blood cultures drawn by lab staff. aa5 18:18 Sal Gabriel MD is Hospitalizing Provider. cp 19:01 Report given to SONG Wright and SONG Whitehead. aa5 20:45 Provided Education on: need for admission. al5 20:45 Patient admitted, IV remains in place. al5 Administered Medications: 15:25 Drug: Acetaminophen PO 1000 mg PO once Route: PO; aa5 20:14 Follow up: Response: No adverse reaction; Temperature is decreased al5 15:25 Drug: fentaNYL (PF) IVP 50 mcg IVP once Route: IVP; Site: right forearm; aa5 20:15 Follow up: Response: No adverse reaction; Pain is decreased al5 15:57 Drug: Ondansetron IVP 4 mg IVP once; over 2 minutes Route: IVP; Site: right wrist; rs5 20:15 Follow up: Response: No adverse reaction; Nausea is decreased al5 17:01 Drug: Ibuprofen PO 800 mg PO once Route: PO; rs5 20:15 Follow up: Response: No adverse reaction; Temperature is decreased al5 17:22 Drug: NS 0.9% IV 250 ml IV at bolus once; to be given as a bolus over 60 minutes Route: rs5 IV; Rate: bolus; Site: right wrist; 20:15 Follow up: Response: No adverse reaction; IV Status: Completed infusion; IV Intake: al5 250ml 17:30 Drug: vancoMYCIN IVPB 1 grams IVPB once over 2 hrs Route: IVPB; Infused Over: 2 hrs; rs5 Site: right wrist; 20:15 Follow up: Response: No adverse reaction; IV Status: Completed infusion; IV Intake: al5 250ml Medication: 16:56 VIS not applicable for this client. aa5 Intake: 20:15 IV: 250ml; Total: 250ml. al5 20:15 IV: 250ml; Total: 500ml. al5 Outcome: 18:27 Decision to Hospitalize by Provider. cp 21:51 Admitted to Tele accompanied by tech, via stretcher, room 430, vc1 21:51 Condition: good 21:51 Instructed on the need for admit, 21:52 Patient left the ED. vc1 Signatures: Dispatcher [employer] EDSandra Srinivasan RN RN aa5 Castillo Gipson PA PA cp Arlette Bauer RN RN vc1 Ryan Church RN RN rs5 Dawit Beasley MD MD ec2 Adriana Forrester RN RN al5 Corrections: (The following items were deleted from the chart) 14:43 14:42 PMHx: Chronic leg wound (leg); aa5 aa5 14:43 14:42 PMHx: Chronic wound to RLQ (Unknown); aa5 aa5 16:56 16:45 Reassessment: Pt refusing 2nd stick for blood cultures. . aa5 aa5
[2024-10-20 18:46] LABS: Differential Total Cells Count 100; Eosinophils 5 % (0-3); Lymphocytes 40 % (15-42); Monocytes 52 % (0-10); Platelet Estimate INCR; Segmented Neutrophils 3 % (40-80)
[2024-10-20 18:47] LABS: Anisocytosis 2+; Blood Morphology Comment NOTED (NOT SEEN); Microcytosis 1+
--- NOTE | 2024-10-20 19:25 | P.HP ---
Certification for Inpatient Patient admitted to: Inpatient With expected LOS: >2 Midnights Practitioner: I am a practitioner with admitting privileges, knowledge of patient current condition, hospital course, and medical plan of care. Services: Services provided to patient in accordance with Admission requirements found in Title 42 Section 412.3 of the Code of Federal Regulations Patient History Date of Service: 10/20/24 Reason for admission: fever History of Present Illness: 34-year-old male presented to the ER with complaints of fever. The patient has a known history of chronic wounds including right lower quadrants in July 2023 and left leg since 2021. He does follow with wound care. He was noted to have a fever of 102.1 in the ER. General surgery was called. Recommended admission. Blood cultures were ordered. At time of evaluation patient quite lethargic. He is arousable and answers questions. He states that symptoms have been going on for a while with increase discomfort and redness. He denies being on antibiotics. Allergies sulfamethoxazole [From Bactrim] Allergy (Verified 07/13/24 15:08) Itching trimethoprim [From Bactrim] Allergy (Verified 07/13/24 15:08) Itching Home Medications: Hydrocodone 10/APAP 325 [[place] 10/325*] 1 tab PO Q12HR PRN 09/02/24 Naproxen 500 mg PO BID 09/02/24 methocarbamoL [Robaxin*] 750 mg PO BID 09/02/24 Spironolactone [Aldactone*] 25 mg PO DAILY 30 Days #30 tab 10/02/24 - Past Medical/Surgical History Diabetic: No -: Neutropenia -: Anemia -: Non healing wounds on the abdominal wall and the LLE -: ALLISON -: CHF -: Debridement of the wounds on the left leg -: 03/29/24 LEXISCAN INJECTED. CARDIOLITE INJECTED no ischemia Psychosocial/ Personal History: Pt lives in a trailer now moved to the [place] area in his trailer - Family History Mother Notes: Severe chronic acute Congenital neutropenia - Social History Alcohol use: No CD- Drugs: No Caffeine use: No Review of Systems 10-point ROS is otherwise unremarkable Physical Examination - Physical Exam General: Disheveled, Obese, Other (lethargic) HEENT: Atraumatic, Normocephalic Respiratory: Clear to auscultation bilaterally, Normal air movement Cardiovascular: Regular rate/rhythm, Normal S1 S2 Gastrointestinal: Other (RLQ tenderness, wound) Musculoskeletal: Other (LLQ wound, dressing with drainage) Integumentary: Rash(es), Skin breakdown - Studies Laboratory Data (last 24 hrs) 10/20/24 10/20/24 10/20/24 15:14 15:14 15:14 WBC 2.40 L Hgb 8.7 L Hct 26.3 L Plt Count 463 H PT 16.2 H INR 1.46 APTT 29.8 Sodium 130 L Potassium 4.4 BUN 14 Creatinine 1.16 Glucose 169 H Total Bilirubin 0.5 AST < 10 L ALT < 14 L Alkaline Phosphatase 55 Lipase 9 L Microbiology Data (last 24 hrs): 10/20/24 15:50 Nasopharnyx Influenza Type A Antigen Screen - Final 10/20/24 15:50 Nasopharnyx Influenza Type B Antigen Screen - Final Assessment and Plan - Problems (Diagnosis) (1) Hyponatremia Current Visit: Yes Status: Acute (2) Abdominal wall cellulitis Current Visit: No Status: Acute (3) Anemia Current Visit: No Status: Acute (4) Cellulitis of left lower extremity Current Visit: No Status: Acute - Plan 34-year-old male with history of obesity, abdominal and leg wound presents with fevers. Fevers Abdominal wound Extremity wound --blood cultures drawn --surgery contacted in ED --continue vancomycin, rocephin Anemia Leukopenia --unclear etiology, ?chronic infection --monitor cbc hyponatremia --check urine Na, urine osmolality, serum osmolality --repeat labs in AM DVT:lovenox code:full - Advance Directives Does patient have a Living Will: No Does patient have a Durable POA for Healthcare: No
[2024-10-20] MEDS ORDERED: VANCOMYCIN 1 GM in NA CHLORIDE 0.9% 250 ML IVPB SCH (20:00)
[2024-10-20] MEDS: VANCOMYCIN 1 GM in NA CHLORIDE 0.9% 250 ML IVPB ONE (22:29)
[2024-10-20] MEDS: ACETAMINOPHEN 325 MG TABLET PO PRN (22:31)
[2024-10-21 06:51] LABS: Absolute Basophils 0.1 K/uL (0-0.5); Absolute Eosinophils 0.3 K/uL (0-0.5); Absolute Lymphocytes (CBC) 0.7 K/uL (0.7-4.9); Absolute Monocytes 1.4 K/uL (0.1-1.3); Basophils % 2.1 % (0-1.3); Eosinophils % 10.9 % (0-4.4); Hemoglobin 8.6 g/dL (13.6-17.9); Lymphocytes % 29.4 % (15.3-44.8); MCV 78.8 fL (80-100); MPV 7.3 fL (7.6-11.3); Monocytes % 56.5 % (3.3-12.3); Neutrophils % 1.1 % (41.7-73.7); Nucleated Red Blood Cells % 0.2 % (0-0); Platelets 426 thou/uL (152-406)
[2024-10-21 06:56] VITALS: BMI 42.0
[2024-10-21 07:02] LABS: AST/SGOT 11 U/L (15-37); Albumin/Globulin Ratio 0.3 (1.1-1.8); Alkaline Phosphatase 49 U/L (45-117); Anion Gap 7.3 mEq/L (5.0-15.0); BUN Blood Urea Nitrogen 17 mg/dL (7-18); Bicarbonate 29 mEq/L (21-32); Bilirubin Total 0.3 mg/dL (0.2-1.0); Glomerular Filtration Rate 82 ml/min (=/>90); Glucose Level 163 mg/dL (74-106); Potassium 4.3 mEq/L (3.5-5.1); Sodium Level 133 mEq/L (136-145)
[2024-10-21 07:03] LABS: ALT/SGPT < 14 U/L (16-61)
[2024-10-21] MEDS: HYDROCODONE/APAP 5/325 MG TAB PO PRN (08:58)
[2024-10-21] MEDS: CEFTRIAXONE 1,000 MG in NA CHLORIDE 0.9% 50 ML IVPB SCH (08:59)
[2024-10-21] MEDS: ENOXAPARIN 40 MG/0.4 ML SQ SCH (08:59)
[2024-10-21] MEDS: MORPHINE 2 MG/ML SYR IV PRN (09:56)
[2024-10-21] MEDS: HYDROCODONE/APAP 5/325 MG TAB PO ONE (10:37)
[2024-10-21] MEDS ORDERED: FLU (Fluarix Triv) TS24-25(6MOS UP)/PF 45 MCG/0.5 ML Syringe IM ONE (12:00)
[2024-10-21] MEDS ORDERED: VANCOMYCIN 2 GM in NA CHLORIDE 0.9% 500 ML IVPB SCH (15:00)
--- NOTE | 2024-10-21 15:44 | P.PN ---
Subjective Date of Service: 10/21/24 Chief Complaint: fever Patient complaining of pain in his left leg wound. No fever today. Physical Examination - Vital Signs Temperature: 98.7 F Blood Pressure: 141/60 Pulse: 104 Respirations: 20 Pulse Ox (%): 96 - Studies Laboratory Data (last 24 hrs) 10/20/24 10/20/24 15:14 15:14 WBC 2.40 L Hgb 8.7 L Hct 26.3 L Plt Count 463 H Sodium 130 L Potassium 4.4 BUN 14 Creatinine 1.16 Glucose 169 H Total Bilirubin 0.5 AST < 10 L ALT < 14 L Alkaline Phosphatase 55 Lipase 9 L Microbiology Data (last 24 hrs): 10/20/24 17:24 Blood - Blood Anaerobic Blood Culture - Final 10/20/24 15:50 Nasopharnyx Influenza Type A Antigen Screen - Final 10/20/24 15:50 Nasopharnyx Influenza Type B Antigen Screen - Final Assessment And Plan - Plan Physical examination General: Alert and oriented x3, NAD, morbidly obese. Neck: Supple, no elevated JVD Heart: Heart sounds 1 and 2 normal, regular rhythm, normal rate, no pedal edema Lungs: Clear to auscultation bilaterally, adequate breath sounds bilaterally, no rhonchi or crackles. Abdomen: Soft, nondistended, nontender, normal bowel sounds. Extremities: No tenderness, no deformity Skin: Normal skin turgor, left bruno-ulcer, right inguinal area of erythema and ruptured blister Neuro: No focal motor deficit. Normal speech. Psychiatry: Normal mood, no agitation. Assessment and Plan Diagnosis Sepsis Pancytopenia Chronic left lower extremity ulcer Obesity hypoventilation Obstructive sleep Congenital neutropenia Plan: Sepsis Pancytopenia Chronic left lower extremity ulcer Right groin wound Continue broad-spectrum antibiotics-vancomycin and ceftriaxone Pain management as needed. Case discussed with Surgeon Dr. Solorio. Wound care with Vashe, Santyl, Kerlix and Mann wraps. Analgesics as needed. ALLISON/obesity hypoventilation CPAP at bedtime. Bronchodilators as needed. Chronic anemia No active bleed Monitor and transfuse for hemoglobin less than 7 Congenital neutropenia Patient is on Neupogen as outpatient. Neupogen therapy ordered Chronic pain syndrome [place] and morphine IV as needed. Resume Robaxin. Hyponatremia Monitor BMP DVT prophylaxis: Lovenox
--- NOTE | 2024-10-21 15:46 | EKG ---
Test Date: 2024-10-20 Test Time: 16:29:24 Gold Reclaimer: AM MEASUREMENT RESULTS: Intervals: Rate: 103 DE: 132 QRSD: 80 QT: 348 QTc: 455 [place]: P: 67 DE: 132 QRS: 62 T: 31 INTERPRETIVE STATEMENTS: Sinus tachycardia Nonspecific T wave abnormality Abnormal ECG Compared to ECG 09/24/2024 14:06:53 T-wave abnormality now present Sinus rhythm no longer present Electronically Signed On 10-21-24 15:45:20 ROPE SILICA MACHINE OPERATOR by Gildardo Mayes
[2024-10-21] MEDS: VANCOMYCIN 2 GM in NA CHLORIDE 0.9% 500 ML IVPB SCH (17:20)
[2024-10-21] MEDS: methocarbamoL 750 MG TAB PO SCH (20:58)
[2024-10-21] MEDS: Mupirocin NASAL 2 APPL/1 GM TUBE NAS SCH (20:59)
[2024-10-22] MEDS: HYDROCODONE/APAP 10/325 TAB PO PRN (03:39)
[2024-10-22 06:50] LABS: Absolute Eosinophils 0.6 K/uL (0-0.5); Absolute Lymphocytes (CBC) 1.4 K/uL (0.7-4.9); Absolute Monocytes 1.9 K/uL (0.1-1.3); Eosinophils % 14.7 % (0-4.4); Hematocrit 24.8 % (39.6-49.0); Hemoglobin 8.1 g/dL (13.6-17.9); Lymphocytes % 35.9 % (15.3-44.8); MCH 26.1 pg (27.0-35.0); MCHC 32.8 g/dL (32.0-36.0); MCV 79.7 fL (80-100); MPV 8.1 fL (7.6-11.3); Monocytes % 48.1 % (3.3-12.3); Neutrophils % 1.3 % (41.7-73.7); Nucleated Red Blood Cells % 0.1 % (0-0); Platelets 433 thou/uL (152-406); RBC Red Blood Cell Count 3.12 M/uL (4.33-5.43); Red Cell Distribution Width 23.7 % (12.1-15.2)
[2024-10-22 07:04] LABS: Anion Gap 7.2 mEq/L (5.0-15.0); Potassium 4.2 mEq/L (3.5-5.1)
[2024-10-22 08:56] LABS: Differential Total Cells Count 100; Eosinophils 15 % (0-3); Lymphocytes 40 % (15-42); Monocytes 41 % (0-10); Platelet Estimate INCR; Segmented Neutrophils 3 % (40-80)
[2024-10-22 08:57] LABS: Anisocytosis 2+; Blood Morphology Comment NOTED (NOT SEEN); Microcytosis 1+
[2024-10-22] MEDS: COLLAGENASE 30 GM OINTMENT TOP SCH (09:00)
[2024-10-22] MEDS: SPIRONOLACTONE 25 MG TABLET PO SCH (10:46)
[2024-10-22] MEDS: TBO-FILGRASTIM 300 MCG/0.5 ML SYR SQ SCH (11:09)
--- NOTE | 2024-10-22 14:08 | P.PN ---
Subjective Date of Service: 10/22/24 Chief Complaint: fever Patient has no complaint except pain in his left leg wound. No recorded fever past 48 hours. Physical Examination - Vital Signs Temperature: 97.8 F Blood Pressure: 134/71 Pulse: 98 Respirations: 15 Pulse Ox (%): 97 - Studies Microbiology Data (last 24 hrs): 10/20/24 17:24 Blood - Blood Anaerobic Blood Culture - Final Assessment And Plan - Plan Physical examination General: Alert and oriented x3, NAD, morbidly obese. Neck: No elevated JVD Heart: Heart sounds 1 and 2 normal, regular rhythm, normal rate, no pedal edema Lungs: Clear to auscultation bilaterally, adequate breath sounds bilaterally, no rhonchi or crackles. Abdomen: Soft, nondistended, nontender, normal bowel sounds. Extremities: No tenderness, no deformity Skin: Normal skin turgor, left bruno-ulcer, right inguinal area/iliac fossa area of erythema and ruptured blister with skin peel. Neuro: No focal motor deficit. Normal speech. Psychiatry: Normal mood, no agitation. Assessment and Plan Diagnosis Sepsis Pancytopenia Chronic left lower extremity ulcer Obesity hypoventilation Obstructive sleep Congenital neutropenia Plan: Sepsis Pancytopenia Chronic left lower extremity ulcer Right groin wound Continue broad-spectrum antibiotics-vancomycin and ceftriaxone Pain management as needed. Case discussed with Surgeon Dr. Solorio. Wound care with Vashe, Santyl, Kerlix and Mann wraps. Analgesics as needed. 24-hour blood culture shows no growth. Considering discharge if no growth after 48 hours. ALLISON/obesity hypoventilation CPAP at bedtime. Bronchodilators as needed. Chronic anemia No active bleed Monitor and transfuse for hemoglobin less than 7 Congenital neutropenia Patient is on Neupogen as outpatient. Neupogen therapy ordered to be given twice a week. Chronic pain syndrome [place] and morphine IV as needed. Continue Robaxin. Hyponatremia Monitor BMP DVT prophylaxis: Lovenox
[2024-10-23 00:39] VITALS: O2SAT 96
[2024-10-23 05:13] LABS: Absolute Basophils 0.1 K/uL (0-0.5); Absolute Eosinophils 0.5 K/uL (0-0.5); Absolute Lymphocytes (CBC) 1.5 K/uL (0.7-4.9); Absolute Monocytes 2.3 K/uL (0.1-1.3); Absolute Neutrophil 0.1 K/uL (1.8-8.0); Eosinophils % 10.1 % (0-4.4); Hematocrit 24.5 % (39.6-49.0); Hemoglobin 8.2 g/dL (13.6-17.9); Lymphocytes % 34.6 % (15.3-44.8); MCH 26.3 pg (27.0-35.0); MCHC 33.5 g/dL (32.0-36.0); MCV 78.6 fL (80-100); MPV 7.7 fL (7.6-11.3); Monocytes % 51.7 % (3.3-12.3); Neutrophils % 1.6 % (41.7-73.7); Nucleated Red Blood Cells % 0.1 % (0-0); Platelets 424 thou/uL (152-406); RBC Red Blood Cell Count 3.12 M/uL (4.33-5.43); Red Cell Distribution Width 23.9 % (12.1-15.2)
[2024-10-23 05:33] LABS: Anion Gap 9.2 mEq/L (5.0-15.0); Potassium 4.2 mEq/L (3.5-5.1)
--- NOTE | 2024-10-23 12:08 | P.PN ---
Subjective Date of Service: 10/23/24 Chief Complaint: fever Patient reports pain in his left leg wound is better. No recorded fever past 48 hours. No issues overnight. Physical Examination - Vital Signs Temperature: 99.0 F Blood Pressure: 125/57 Pulse: 103 Respirations: 18 Pulse Ox (%): 94 Assessment And Plan - Plan Physical examination General: Alert and oriented x3, NAD, morbidly obese. Neck: No elevated JVD Heart: Heart sounds 1 and 2 normal, regular rhythm, normal rate, no pedal edema Lungs: Clear to auscultation bilaterally, adequate breath sounds bilaterally, no rhonchi or crackles. Abdomen: Soft, nondistended, nontender, normal bowel sounds. Extremities: No tenderness, no deformity Skin: Normal skin turgor, left bruno-ulcer, right inguinal area/iliac fossa area of erythema and ruptured blister with skin peel. Neuro: No focal motor deficit. Normal speech. Psychiatry: Normal mood, no agitation. Assessment and Plan Diagnosis Sepsis Pancytopenia Chronic left lower extremity ulcer Obesity hypoventilation Obstructive sleep Congenital neutropenia Plan: Sepsis Pancytopenia Chronic left lower extremity ulcer Right groin wound Continue broad-spectrum antibiotics-vancomycin and ceftriaxone Pain management as needed. Wound care with Vashe, Santyl, Kerlix and Mann wraps. Analgesics as needed. Blood cultures: No growth to date. ALLISON/obesity hypoventilation CPAP at bedtime. Bronchodilators as needed. Chronic anemia No active bleed Monitor and transfuse for hemoglobin less than 7 Congenital neutropenia Patient is on Neupogen as outpatient. Neupogen therapy ordered to be given twice a week. Chronic pain syndrome [place] and morphine IV as needed. Continue Robaxin. Hyponatremia Monitor BMP DVT prophylaxis: Lovenox
[2024-10-24 08:15] LABS: Absolute Basophils 0.1 K/uL (0-0.5); Absolute Eosinophils 0.5 K/uL (0-0.5); Absolute Lymphocytes (CBC) 1.4 K/uL (0.7-4.9); Absolute Neutrophil 0.1 K/uL (1.8-8.0); Basophils % 1.6 % (0-1.3); Eosinophils % 9.2 % (0-4.4); Hematocrit 25.1 % (39.6-49.0); Hemoglobin 8.1 g/dL (13.6-17.9); Lymphocytes % 27.8 % (15.3-44.8); MCH 25.6 pg (27.0-35.0); MCHC 32.3 g/dL (32.0-36.0); MCV 79.2 fL (80-100); MPV 7.6 fL (7.6-11.3); Monocytes % 59.2 % (3.3-12.3); Neutrophils % 2.2 % (41.7-73.7); Nucleated Red Blood Cells % 0.1 % (0-0); Platelets 401 thou/uL (152-406); RBC Red Blood Cell Count 3.18 M/uL (4.33-5.43); Red Cell Distribution Width 23.6 % (12.1-15.2)
[2024-10-24 08:27] LABS: Anion Gap 9.4 mEq/L (5.0-15.0); Potassium 4.4 mEq/L (3.5-5.1)
--- NOTE | 2024-10-24 09:45 | P.DS ---
Admission Date: 10/20/24 Discharge Date: 10/24/24 Disposition: DC HOME/HOME HEALTH CARE Discharge Condition: FAIR Reason for Admission: fever Brief History of Present Illness: 34-year-old male presented to the ER with complaints of fever. The patient has a known history of chronic wounds including right lower quadrants in July 2023 and left leg since 2021. He does follow with wound care and has home health. He was noted to have a fever of 102.1 in the ER. General surgery was called who recommended admission. Blood cultures were ordered. Patient was lethargic at time of evaluation. He was admitted for further management. Hospital Course: Patient admitted to the medical floor and the following medical problems addressed: Diagnosis Sepsis Pancytopenia Chronic left lower extremity ulcer Obesity hypoventilation Obstructive sleep Congenital neutropenia Sepsis Pancytopenia Chronic left lower extremity ulcer Right groin wound Patient treated with broad-spectrum antibiotics-vancomycin and ceftriaxone Pain management as needed. Wound care with Vashe, Santyl, Kerlix and Mann wraps. Analgesics as needed. Blood cultures: Showed no growth. ALLISON/obesity hypoventilation CPAP at bedtime. Bronchodilators as needed. Chronic anemia No active bleed Hemoglobin was stable. Congenital neutropenia Patient is on Neupogen as outpatient. Neupogen therapy ordered to be given twice a week. Patient received a shot of Neupogen during the hospital stay. He will follow-up with his oncologist as outpatient for further management Chronic pain syndrome Management [place] and morphine IV as needed. Continued Robaxin. Patient prescribed oral morphine to treat pain associated with wound dressing. Hyponatremia Stable Vital Signs/Physical Exam: Temp Pulse Resp BP Pulse Ox 98.4 F 109 H 20 134/64 95 10/24/24 04:00 10/24/24 09:14 10/24/24 09:15 10/24/24 09:14 10/24/24 09:15 Laboratory Data at Discharge: WBC 5.10 thou/uL (4.3-10.9) 10/24/24 08:00 Hgb 8.1 g/dL (13.6-17.9) L 10/24/24 08:00 Hct 25.1 % (39.6-49.0) L 10/24/24 08:00 Plt Count 401 thou/uL (152-406) 10/24/24 08:00 PT 16.2 SECONDS (9.4-12.5) H 10/20/24 15:14 INR 1.46 10/20/24 15:14 APTT 29.8 SECONDS (24.3-36.9) 10/20/24 15:14 Sodium 131 mEq/L (136-145) L 10/24/24 08:00 Potassium 4.4 mEq/L (3.5-5.1) 10/24/24 08:00 BUN 12 mg/dL (7-18) 10/24/24 08:00 Creatinine 1.08 mg/dL (0.70-1.30) 10/24/24 08:00 Glucose 121 mg/dL (74-106) H 10/24/24 08:00 Total Bilirubin 0.3 mg/dL (0.2-1.0) 10/21/24 06:30 AST 11 U/L (15-37) L 10/21/24 06:30 ALT < 14 U/L (16-61) L 10/21/24 06:30 Alkaline Phosphatase 49 U/L (45-117) 10/21/24 06:30 Lipase 9 U/L (13-75) L 10/20/24 15:14 Home Medications: Naproxen 500 mg PO BID 09/02/24 methocarbamoL [Robaxin*] 750 mg PO BID 09/02/24 Spironolactone [Aldactone*] 25 mg PO DAILY 30 Days #30 tab 10/02/24 Collagenase [Santyl Ointment*] 1 appl TOP DAILY #2 tube 10/24/24 Doxycycline Hyclate 100 mg PO BID #20 cap 10/24/24 Morphine Ir [MSIR (Morphine Sulfate IR)*] 15 mg PO BID #14 tab 10/24/24 Mupirocin Calcium [Bactroban Nasal*] 1 appl DANIELLE BID #2 tube 10/24/24 levoFLOXacin [Levaquin] 750 mg PO DAILY #10 tab 10/24/24 New Medications: Mupirocin Calcium [Bactroban Nasal*] 1 appl DANIELLE BID #2 tube Doxycycline Hyclate 100 mg PO BID #20 cap levoFLOXacin [Levaquin] 750 mg PO DAILY #10 tab Morphine Ir [MSIR (Morphine Sulfate IR)*] 15 mg PO BID #14 tab Collagenase [Santyl Ointment*] 1 appl TOP DAILY #2 tube Diet: AHA Activity: Ad maicol Followup: Clyed Solorio MD [ACTIVE - CAN ADMIT] - 1-2 Weeks Joyce Boone MD [Primary Care Provider] - 1-2 Weeks
[2024-10-24 12:33] VITALS: BP 121/56; TEMP 98.9
[2024-10-24] MEDS: MORPHINE 2 MG/ML SYR IV ONE (14:15)
[2024-10-25] MEDS ORDERED: TBO-FILGRASTIM 300 MCG/0.5 ML SYR SQ SCH (13:00)
== END 2024-10-24 04:55 | disposition home health service (06) | DRG 872 ==
LOC: ER 13:46 → ERHOLD 19:26 → 4TH 21:12
PROVIDERS: ADMIT Internal Medicine; ATTEND Internal Medicine
DX: A41.9 Sepsis, unspecified organism (principal); L03.311 Cellulitis of abdominal wall; L03.116 Cellulitis of left lower limb; E66.2 Morbid (severe) obesity with alveolar hypoventilation; Z68.41 Body mass index [BMI] 40.0-44.9, adult; E87.1 Hypo-osmolality and hyponatremia; L97.929 Non-pressure chronic ulcer of unspecified part of left lower leg with unspecified severity; D70.0 Congenital agranulocytosis; G89.4 Chronic pain syndrome; D63.8 Anemia in other chronic diseases classified elsewhere
CPT/HCPCS: 36415; 71045; 71260; 74177; 80048; 80053; 80202; 81001; 83605; 83690; 83930; 85025; 85610; 85730; 87040; 87804; 87811; 93005; 99285; J0696; J1447; J1650; J2270; J2405; J3010; J3590; J7040; J7050; Q9967

== ENCOUNTER 2024-10-26 17:05 | Inpatient (IN) | payer OTHER ==
[2024-10-26] MEDS ORDERED: FENTANYL CITR 100 MCG/2 ML ONE (18:28)
[2024-10-26 18:59] LABS: Absolute Basophils 0.1 K/uL (0-0.5); Absolute Eosinophils 0.2 K/uL (0-0.5); Absolute Lymphocytes (CBC) 1.2 K/uL (0.7-4.9); Absolute Monocytes 1.8 K/uL (0.1-1.3); Absolute Neutrophil 0.7 K/uL (1.8-8.0); Basophils % 1.4 % (0-1.3); Eosinophils % 4.8 % (0-4.4); Hematocrit 29.5 % (39.6-49.0); Hemoglobin 9.6 g/dL (13.6-17.9); Lymphocytes % 30.8 % (15.3-44.8); MCH 25.4 pg (27.0-35.0); MCHC 32.7 g/dL (32.0-36.0); MCV 77.6 fL (80-100); MPV 7.8 fL (7.6-11.3); Monocytes % 44.5 % (3.3-12.3); Neutrophils % 18.5 % (41.7-73.7); Platelets 403 thou/uL (152-406); Red Cell Distribution Width 23.7 % (12.1-15.2)
[2024-10-26 19:00] LABS: Anisocytosis 2+; Blood Morphology Comment NOTED (NOT SEEN); Platelet Estimate ADEQ; White Blood Cell Scan OK (OK)
[2024-10-26 19:04] LABS: PT Prothrombin Time 17.4 SECONDS (9.4-12.5); Protime INR 1.57
[2024-10-26 19:05] LABS: PTT, Activated Partial Thromb 31.5 SECONDS (24.3-36.9)
[2024-10-26 19:35] LABS: Albumin 2.1 g/dL (3.4-5.0); Albumin/Globulin Ratio 0.3 (1.1-1.8); Anion Gap 11.4 mEq/L (5.0-15.0); Bilirubin Total 0.4 mg/dL (0.2-1.0); Globulin 7.1 g/dL (2.3-3.5); Potassium 4.4 mEq/L (3.5-5.1); Protein, Total 9.2 g/dL (6.4-8.2)
[2024-10-26] MEDS ORDERED: ACETAMINOPHEN 500 MG TAB PO PRN (19:48)
[2024-10-26] MEDS ORDERED: ONDANSETRON 4 MG/2 ML VIAL IV PRN (19:48)
[2024-10-26] MEDS: COLLAGENASE 30 GM OINTMENT TOP SCH (20:10)
--- NOTE | 2024-10-26 20:11 | P.HP ---
Certification for Inpatient Patient admitted to: Observation With expected LOS: <2 Midnights Practitioner: I am a practitioner with admitting privileges, knowledge of patient current condition, hospital course, and medical plan of care. Services: Services provided to patient in accordance with Admission requirements found in Title 42 Section 412.3 of the Code of Federal Regulations Patient History Date of Service: 10/26/24 Reason for admission: worsening LLE wounds History of Present Illness: Patient is a 34-year-old male with a past medical history of morbid obesity, obesity hypoventilation syndrome and obstructive sleep apnea. He also has a history of congenital neutropenia and chronic nonhealing wound involving the lateral aspect of his left calf. He has had multiple debridement by Dr. Murillo, at least 6. Was recently seen here for fever a few days ago. His blood cultures remain negative. Patient received the wound care with Vashe, Santyl, Kerlix and Mann wraps. He was discharge after a brief course of vancomycin and ceftriaxone. He now presents with worsening discharge, bleeding and pain from the above site. Patient has also been having subjective fever, reporting a fever of 100.8 degrees at home. During this admission, patient has evidence of mild RICCI with a creatinine of 1.5. WBC is 3.9. Allergies sulfamethoxazole [From Bactrim] Allergy (Verified 07/13/24 15:08) Itching trimethoprim [From Bactrim] Allergy (Verified 07/13/24 15:08) Itching Home Medications: Naproxen 500 mg PO BID 09/02/24 methocarbamoL [Robaxin*] 750 mg PO BID 09/02/24 Spironolactone [Aldactone*] 25 mg PO DAILY 30 Days #30 tab 10/02/24 Collagenase [Santyl Ointment*] 1 appl TOP DAILY #2 tube 10/24/24 Doxycycline Hyclate 100 mg PO BID #20 cap 10/24/24 Morphine Ir [MSIR (Morphine Sulfate IR)*] 15 mg PO BID #14 tab 10/24/24 Mupirocin Calcium [Bactroban Nasal*] 1 appl DANIELLE BID #2 tube 10/24/24 levoFLOXacin [Levaquin] 750 mg PO DAILY #10 tab 10/24/24 - Past Medical/Surgical History Diabetic: No -: Neutropenia -: Anemia -: Non healing wounds on the abdominal wall and the LLE -: ALLISON -: CHF -: Debridement of the wounds on the left leg -: 03/29/24 LEXISCAN INJECTED. CARDIOLITE INJECTED no ischemia Psychosocial/ Personal History: Pt lives in a trailer now [place] the [place] - Family History Mother Notes: Severe chronic acute Congenital neutropenia - Social History Alcohol use: No CD- Drugs: No Caffeine use: No Physical Examination - Physical Exam General: Other (morbidly obese) HEENT: Atraumatic, Normocephalic Respiratory: Clear to auscultation bilaterally, Normal air movement Cardiovascular: No edema, Normal pulses, Regular rate/rhythm, Normal S1 S2 Musculoskeletal: Other (Large open wound occupying the lateral aspect of the left calf.) Neurological: Normal speech - Studies Laboratory Data (last 24 hrs) 10/26/24 10/26/24 10/26/24 18:48 18:48 18:48 WBC 3.90 L Hgb 9.6 L Hct 29.5 L Plt Count 403 PT 17.4 H INR 1.57 APTT 31.5 Sodium 129 L Potassium 4.4 BUN 21 H Creatinine 1.50 H Glucose 120 H Total Bilirubin 0.4 AST 19 ALT 17 Alkaline Phosphatase 70 Assessment and Plan - Problems (Diagnosis) (1) RICCI (acute kidney injury) Current Visit: Yes Status: Acute (2) Anemia Current Visit: No Status: Acute (3) Cellulitis of left lower extremity Current Visit: No Status: Acute (4) Congenital neutropenia Current Visit: No Status: Acute (5) ALLISON (obstructive sleep apnea) Current Visit: No Status: Acute (6) Neutropenia Current Visit: No Status: Chronic - Plan Assessment This is a 34-year-old male with congenital neutropenia and the chronic left lower extremity wound that has required multiple debridement and skin graft by surgery. He returns to the clinic a few days after discharge with chief complaints of fever, increased discharge and bleeding from his wounds. Congenital neutropenia Nonhealing left lower extremity wound RICCI Hyponatremia Morbid obesity Obesity hypoventilation syndrome Obstructive sleep apnea Plan: Will admit under observation Start patient on normal saline infusion for RICCI General Surgery has been consulted. Will start patient on Santyl, Vashe, wet-to-dry dressing change as per general surgery recommendation IV clindamycin Pain control Heparin subcu for DVT prophylaxis Patient is full code - Advance Directives Does patient have a Living Will: No Does patient have a Durable POA for Healthcare: No
--- NOTE | 2024-10-26 20:17 | EDPHYS ---
Physician Documentation [facility] Name: Abel Maria Age: 34 yrs Sex: Male : 1990 Arrival Date: 10/26/2024 Time: 17:05 Bed 16 Private MD: ED Physician Lennie Singh HPI: 10/26 21:08 This 34 yrs old Male presents to ER via EMS with complaints of Wound Check. kb 21:08 Patient is a 34-year-old male who presents for increased drainage, pain and bleeding to chronic wound on the lateral aspect of left calf. Patient reports he has been running fever since he has been discharged on Thursday. States he had a virtual visit with his doctor today and was told that he was discharged too early and he needed to come back in.. Historical: - Allergies: 17:08 Bactrim; bp 17:08 Dilaudid; bp - PMHx: 17:08 Chronic leg wound; Left leg (2021); Chronic wound to RLQ (July 2023); Congenital bp neutropenia; Sleep Apnea; - PSHx: 17:08 eye; leg; rectum; bp - Immunization history:: Adult Immunizations up to date. - Infectious Disease History:: Denies. - Social history:: Smoking status: Patient denies any tobacco usage or history of. ROS: 20:40 Constitutional: As per HPI kb Exam: 20:39 Constitutional: This is a well developed, well nourished patient who is awake, alert, kb and in no acute distress. Head/Face: Normocephalic, atraumatic. ENT: Moist Mucous membranes Cardiovascular: Regular rate Respiratory: Respirations even and unlabored. No increased work of breathing. Talking in full sentences Abdomen/GI: Soft, non-tender. No distention MS/ Extremity: Pulses equal, no cyanosis. Neurovascular intact. Full, normal range of motion. Neuro: Awake and alert, GCS 15, oriented to person, place, time, and situation. 20:39 ECG was reviewed by the Attending Physician. 20:39 Skin: open wound with yellow and bloody drainage to left lateral calf. . kb Vital Signs: 17:06 BP 129 / 75; Pulse 110; Resp 16; Temp 99.4; Pulse Ox 94% ; bp 19:10 BP 118 / 70; Pulse 99; Resp 19; Pulse Ox 97% on R/A; Pain 8/10; rg5 20:00 BP 120 / 79; Pulse 96; Resp 17; Pulse Ox 99% on R/A; rg5 21:40 BP 112 / 66; Pulse 91; Resp 16; Pulse Ox 99% ; vc1 19:10 Pain Scale: Adult rg5 MDM: 17:07 Medical Screening Exam initiated kb 21:09 Differential diagnosis: cellulitis, Wound infection, abscess. Data reviewed: vital kb signs, nurses notes. Consideration of Admission/Observation Patient was admitted/placed on observation. Escalation of care including admission/observation considered. Management of patient was discussed with the following: Hospitalist: Dr. Castillo accepts patient for admission. Cath Lab Nurse: Dr. Solorio accepts patient for consult. Recommends wound care and reassess tomorrow.. Historians other than the Patient: EMS: [facility]. Counseling: I had a detailed discussion with the patient and/or guardian regarding the historical points, exam findings, and any diagnostic results supporting the discharge/admit diagnosis, lab results, the need for further work-up and treatment in the hospital. 10/26 17:22 Order name: Blood Culture Adult (2) kb 10/26 17:22 Order name: CBC with Diff; Complete Time: 19:04 kb 10/26 17:22 Order name: CMP; Complete Time: 19:40 kb 10/26 17:22 Order name: Lactate w/ 2H reflex if indic.; Complete Time: 19:16 kb 10/26 17:22 Order name: Protime (+inr); Complete Time: 19:05 kb 10/26 17:22 Order name: Ptt, Activated; Complete Time: 19:05 kb 10/26 19:01 Order name: CBC Smear Scan; Complete Time: 19:04 EDMS 10/26 19:52 Order name: Urinalysis w/ reflexes EDMS 10/26 20:15 Order name: Basic Metabolic Panel EDMS 10/26 20:15 Order name: Basic Metabolic Panel EDMS 10/26 20:15 Order name: Basic Metabolic Panel EDMS 10/26 20:15 Order name: Basic Metabolic Panel EDMS 10/26 20:15 Order name: CBC with Automated Diff EDMS 10/26 20:15 Order name: CBC with Automated Diff EDMS 10/26 20:15 Order name: CBC with Automated Diff EDMS 10/26 20:15 Order name: CBC with Automated Diff EDMS 10/26 17:22 Order name: EKG; Complete Time: 17:23 kb 10/26 19:53 Order name: [facility] EDMS 10/26 17:22 Order name: Accucheck; Complete Time: 18:47 kb 10/26 17:22 Order name: Cardiac monitoring; Complete Time: 18:47 kb 10/26 17:22 Order name: EKG - Nurse/Tech; Complete Time: 19:54 kb 10/26 17:22 Order name: IV Saline Lock - Large Bore; Complete Time: 18:47 kb 10/26 17:22 Order name: Labs collected and sent; Complete Time: 18:47 kb 10/26 17:22 Order name: O2 Per Protocol; Complete Time: 18:47 kb 10/26 17:22 Order name: O2 Sat Monitoring; Complete Time: 18:47 kb 10/26 17:22 Order name: Vital Signs; Complete Time: 18:47 kb 10/26 17:22 Order name: Misc. Order: remove dressing, use NS to remove gauze that is stuck to wound kb please; Complete Time: 19:47 10/26 18:36 Order name: Misc. Order: recollect green, lav, and blue; Complete Time: 18:47 sp EC:39 Rate is 98 beats/min. Rhythm is regular. QRS [place] is Normal. MT interval is normal at kb 142 msec. QRS interval is normal at 80 msec. QT interval is normal at 472 msec. Administered Medications: 19:05 Drug: fentaNYL (PF) IVP 50 mcg IVP once Route: IVP; Site: right forearm; bp 19:06 Follow up: Response: No adverse reaction bp 21:00 Drug: vancoMYCIN IVPB 1 grams IVPB once over 2 hrs Route: IVPB; Infused Over: 2 hrs; rg5 Site: right forearm; Disposition Summary: 10/26/24 20:17 Hospitalization Ordered Notes: Hospitalization Status: Observation kb Provider: Prince sal Castillo Location: Telemetry/MedSurg (observation) kb Condition: Stable kb Problem: new kb Symptoms: are unchanged kb Bed/Room Type: Standard Room Assignment: 215(10/26/24 20:38) ty Diagnosis - Leg Laceration/ Open wound of lower leg - open wound kb Forms: - Medication Reconciliation Form kb - SBAR form kb - Leadership Thank You Letter kb Signatures: Dispatcher [employer] Swapna Craig, CONTACT ACID PLANT OPERATOR HELPER-C CONTACT ACID PLANT OPERATOR HELPER-Justina Friend Brian, RN RN bp Chino Kim Rommel, RN RN rg5 Corrections: (The following items were deleted from the chart) 20:38 20:17 kb ty 20:40 20:39 Constitutional: This is a well developed, well nourished patient who is awake, kb alert, and in no acute distress. kb
--- NOTE | 2024-10-26 20:17 | ER ---
Nurse's Notes [facility] Name: Abel Maria Age: 34 yrs Sex: Male : 1990 Arrival Date: 10/26/2024 Time: 17:05 Bed 16 Private MD: Diagnosis: Leg Laceration/ Open wound of lower leg-open wound Presentation: 10/26 17:06 Chief complaint: EMS states: WOUND CHECK, CHRONIC LEG WOUND. Coronavirus screen: At bp this time, the client does not indicate any symptoms associated with coronavirus-19. Ebola Screen: No symptoms or risks identified at this time. Initial Sepsis Screen: Does the patient meet any 2 criteria? HR > 90 bpm. No. Patient's initial sepsis screen is negative. Does the patient have a suspected source of infection?. Risk Assessment: Do you want to hurt yourself or someone else? Patient reports no desire to harm self or others. Onset of symptoms is unknown. Care prior to arrival: Glucose check: 150. 17:06 Method Of Arrival: EMS: [facility] bp 17:06 Acuity: RICH 3 bp Triage Assessment: 17:08 General: Appears in no apparent distress. obese, Behavior is cooperative, appropriate bp for age, anxious. Pain: Complains of pain in right leg and left leg. EENT: No deficits noted. Neuro: No deficits noted. Cardiovascular: Rhythm is sinus tachycardia. Respiratory: No deficits noted. GI: No signs and/or symptoms were reported involving the gastrointestinal system. : No signs and/or symptoms were reported regarding the genitourinary system. Derm: Wound noted left leg. Musculoskeletal: No deficits noted. Historical: - Allergies: 17:08 Bactrim; bp 17:08 Dilaudid; bp - PMHx: 17:08 Chronic leg wound; Left leg (2021); Chronic wound to RLQ (July 2023); Congenital bp neutropenia; Sleep Apnea; - PSHx: 17:08 eye; leg; rectum; bp - Immunization history:: Adult Immunizations up to date. - Infectious Disease History:: Denies. - Social history:: Smoking status: Patient denies any tobacco usage or history of. Screenin:10 [facility] ED Fall Risk Assessment (Adult) History of falling in the last 3 months, rg5 including since admission No falls in past 3 months (0 pts) Confusion or Disorientation No (0 pts) Intoxicated or Sedated No (0 pts) Impaired Gait Yes (1 pt) Mobility Assist Device Used Yes (1 pt) Altered Elimination No (0 pt) Score/Fall Risk Level 0 - 2 = Low Risk Oriented to surroundings, Maintained a safe environment, Hourly rounding (assess needs \T\ fall precautionary measures) done. 19:10 Abuse screen: Denies threats or abuse. Nutritional screening: No deficits noted. rg5 Tuberculosis screening: No symptoms or risk factors identified. Assessment: 17:53 Reassessment: UNABLE TO OBTAIN PIV 2/2 PT AGITATION AND UNCOOPERATION, PROVIDER bp NOTIFIED. BILINGUAL INSIDE SALES REPRESENTATIVE CONTACTED FOR U/S LINE PLACEMENT. 19:05 General: Appears in no apparent distress. Behavior is calm, cooperative, appropriate rg5 for age. 19:05 Pain: Complains of pain in left leg Quality of pain is described as aching. Neuro: rg5 Level of Consciousness is awake, alert, Oriented to person, place, time. Cardiovascular: Denies chest pain, Patient's skin is warm and dry. Respiratory: Airway is patent Trachea midline Respiratory effort is even, unlabored. GI: Abdomen is round obese. : No signs and/or symptoms were reported regarding the genitourinary system. EENT: No deficits noted. Derm: Skin wound left leg Wound noted left leg. Musculoskeletal: Circulation, motion, and sensation intact. Range of motion:. 20:00 Reassessment: Patient and/or family updated on plan of care and expected duration. Pain rg5 level reassessed. Patient is alert, oriented x 3, equal unlabored respirations, skin warm/dry/pink. 21:00 Reassessment: Patient and/or family updated on plan of care and expected duration. Pain rg5 level reassessed. Patient is alert, oriented x 3, equal unlabored respirations, skin warm/dry/pink. Vital Signs: 17:06 BP 129 / 75; Pulse 110; Resp 16; Temp 99.4; Pulse Ox 94% ; bp 19:10 BP 118 / 70; Pulse 99; Resp 19; Pulse Ox 97% on R/A; Pain 8/10; rg5 20:00 BP 120 / 79; Pulse 96; Resp 17; Pulse Ox 99% on R/A; rg5 21:40 BP 112 / 66; Pulse 91; Resp 16; Pulse Ox 99% ; vc1 19:10 Pain Scale: Adult rg5 ED Course: 17:06 Patient arrived in ED. bp 17:07 Swapna Gillespie FNP-C is [facility]. kb 17:07 Lennie Singh MD is Attending Physician. kb 17:08 Triage completed. bp 17:08 Arm band placed on. bp 17:29 Rito Valadez, RN is Primary Nurse. bp 18:00 Accessed peripheral vein via ultrasound, utilizing dynamic ultrasound technique using bp 20G Nexia IV catheter Clean \T\ dry. Dressing intact. Good blood return. Flushes easily. 19:10 Patient has correct armband on for positive identification. Placed in gown. Bed in low rg5 position. Side rails up X 1. Door closed. Noise minimized. Warm blanket given. Verbal reassurance given. 19:10 No provider procedures requiring assistance completed. rg5 20:17 Prince Castillo MD is Hospitalizing Provider. kb 20:48 Primary Nurse role handed off by Rito Valadez RN ty 21:12 Yosvany Anders RN is Primary Nurse. rg5 21:51 Called charge phone 2x no answer called the floor spoke with Felix. partida Administered Medications: 19:05 Drug: fentaNYL (PF) IVP 50 mcg IVP once Route: IVP; Site: right forearm; bp 19:06 Follow up: Response: No adverse reaction bp 21:00 Drug: vancoMYCIN IVPB 1 grams IVPB once over 2 hrs Route: IVPB; Infused Over: 2 hrs; rg5 Site: right forearm; Outcome: 20:17 Decision to Hospitalize by Provider. kb 22:24 Patient left the ED. rg5 Signatures: Swapna Gillespie FNP-C [employer]PORATE [employer]ER-Ckb Rito Valadez, RN RN bp rAlette Bauer RN RN vc1 Chino Kim ty Yosvany Anders RN RN rg5
[2024-10-26] MEDS ORDERED: VANCOMYCIN 1 GM/VIAL ONE (20:54)
[2024-10-26] MEDS ORDERED: NA CHLORIDE 0.9% 250 ML ONE (20:55)
[2024-10-26] MEDS: NA CHLORIDE 0.9% 1,000 ML IV SCH (22:40)
[2024-10-26] MEDS: CLINDAMYCIN 900MG/D5W 900 MG/50 ML IVPB IV SCH (22:40)
[2024-10-27] MEDS: HEPARIN 5000 UNIT/ML 1 ML VIAL SQ SCH (00:21)
[2024-10-27 01:35] LABS: Specific Gravity > 1.030 (1.005-1.030); Sqamous Epithelial <5 /HPF (None Seen); Urine Bacteria <20 /HPF (<20); Urine Bilirubin NEGATIVE (Negative); Urine Blood 3+ (Negative); Urine Clarity Extremely Turbid (Clear); Urine Color Yellow (Yellow); Urine Culture Reflex Order NOT NEEDED; Urine Glucose NEGATIVE (Negative); Urine Ketones TRACE (Negative); Urine Microscopic Reflex YN ORDER UMIC; Urine Mucus 3+ /HPF (None Seen); Urine Nitrite NEGATIVE (Negative); Urine Protein 1+ (Negative); Urine RBC >50 /HPF (None Seen); Urine Urobilinogen Normal (Normal)
[2024-10-27] MEDS: HYDROMORPHONE HCL 1 MG/ML INJ IV PRN (03:12)
[2024-10-27 06:06] LABS: Absolute Basophils 0.1 K/uL (0-0.5); Absolute Eosinophils 0.5 K/uL (0-0.5); Absolute Lymphocytes (CBC) 1.4 K/uL (0.7-4.9); Absolute Monocytes 1.3 K/uL (0.1-1.3); Absolute Neutrophil 0.6 K/uL (1.8-8.0); Basophils % 2.4 % (0-1.3); Eosinophils % 13.2 % (0-4.4); Hematocrit 26.5 % (39.6-49.0); Hemoglobin 8.4 g/dL (13.6-17.9); Lymphocytes % 35.8 % (15.3-44.8); MCH 24.9 pg (27.0-35.0); MCHC 31.6 g/dL (32.0-36.0); MCV 78.8 fL (80-100); MPV 8.2 fL (7.6-11.3); Monocytes % 33.4 % (3.3-12.3); Neutrophils % 15.2 % (41.7-73.7); Platelets 408 thou/uL (152-406); RBC Red Blood Cell Count 3.37 M/uL (4.33-5.43); Red Cell Distribution Width 24.1 % (12.1-15.2)
[2024-10-27 06:34] LABS: Anion Gap 10.8 mEq/L (5.0-15.0); Potassium 3.8 mEq/L (3.5-5.1)
[2024-10-27] MEDS: FLU (Fluarix Triv) TS24-25(6MOS UP)/PF 45 MCG/0.5 ML Syringe IM ONE (07:30)
[2024-10-27] MEDS: methocarbamoL 750 MG TAB PO SCH (08:18)
[2024-10-27] MEDS ORDERED: MORPHINE 15 MG IR TAB PO SCH (09:00)
[2024-10-27] MEDS ORDERED: COLLAGENASE 30 GM OINTMENT TOP SCH (09:00)
[2024-10-27] MEDS: Mupirocin NASAL 2 APPL/1 GM TUBE NAS SCH (09:00)
[2024-10-27] MEDS: POTASSIUM CL SA 10 MEQ TAB PO ONE (11:07)
--- NOTE | 2024-10-27 19:34 | P.PN ---
Subjective Date of Service: 10/27/24 Chief Complaint: worsening LLE wounds Subjective: No new changes Review of Systems 10-point ROS is otherwise unremarkable General: Other (none), As per HPI Eyes: Unremarkable ENT: Unremarkable Respiratory: Unremarkable Cardiovascular: Unremarkable Gastrointestinal: Unremarkable Genitourinary: Unremarkable Musculoskeletal: Unremarkable Integumentary: Lesions Neurological: Unremarkable Lymphatics: Unremarkable Physical Examination - Vital Signs Temperature: 97.9 F Blood Pressure: 121/52 Pulse: 91 Respirations: 18 Pulse Ox (%): 95 - Physical Exam General: Alert HEENT: Atraumatic, Normocephalic Neck: Supple Respiratory: Normal air movement Cardiovascular: Normal pulses, Regular rate/rhythm Capillary refill: <2 Seconds Gastrointestinal: Normal bowel sounds Musculoskeletal: No clubbing Integumentary: Skin lesion (great blood flow to right lower abdominal ulcerations, cleansed with Vashe, xeroform, nystatin placed and wound covered with abd bandage), Tenderness/swelling, Other (left lower leg with loosened skin lateral and posterior border. mild erythema, xeroform and dry nonstick telfa placed with abd dressing and kerlix) Neurological: Normal speech, Normal affect, Abnormal tone Lymphatics: No axilla or inguinal lymphadenopathy External genitalia: Deferred Rectal: Deferred - Studies Laboratory Data (last 24 hrs) 10/27/24 10/27/24 10/26/24 05:47 05:47 18:48 WBC 3.90 L Hgb 8.4 L D Hct 26.5 L Plt Count 408 H Sodium 131 L 129 L Potassium 3.8 D 4.4 BUN 26 H 21 H Creatinine 1.55 H 1.50 H Glucose 160 H 120 H Total Bilirubin 0.4 AST 19 ALT 17 Alkaline Phosphatase 70 Microbiology Data (last 24 hrs): 10/26/24 18:48 Blood - Blood Anaerobic Blood Culture - Final 10/27/24 05:47 Blood - Blood Anaerobic Blood Culture - Final Assessment And Plan - Plan Congenital neutropenia Nonhealing left lower extremity wound RICCI Hyponatremia Morbid obesity Obesity hypoventilation syndrome Obstructive sleep apnea Plan: Will admit under observation Start patient on normal saline infusion for RICCI General Surgery has been consulted. Will start patient on Santyl, Vashe, wet-to-dry dressing change as per general surgery recommendation IV clindamycin Pain control Heparin subcu for DVT prophylaxis Patient is full code - Advance Directives Does patient have a Living Will: No Does patient have a Durable POA for Healthcare: No Discharge Plan: Home Plan to discharge in: 24 Hours - Code Status/Comfort Care Code Status Assessed: Yes (full)
[2024-10-28 04:48] LABS: Absolute Basophils 0.1 K/uL (0-0.5); Absolute Eosinophils 0.5 K/uL (0-0.5); Absolute Lymphocytes (CBC) 1.2 K/uL (0.7-4.9); Absolute Monocytes 0.9 K/uL (0.1-1.3); Absolute Neutrophil 0.3 K/uL (1.8-8.0); Basophils % 3.1 % (0-1.3); Eosinophils % 15.6 % (0-4.4); Hematocrit 23.5 % (39.6-49.0); Hemoglobin 7.8 g/dL (13.6-17.9); Lymphocytes % 41.2 % (15.3-44.8); MCH 26.3 pg (27.0-35.0); MCHC 33.4 g/dL (32.0-36.0); MCV 78.7 fL (80-100); Monocytes % 29.7 % (3.3-12.3); Neutrophils % 10.4 % (41.7-73.7); Nucleated Red Blood Cells % 0.2 % (0-0); Platelets 382 thou/uL (152-406); RBC Red Blood Cell Count 2.98 M/uL (4.33-5.43); Red Cell Distribution Width 23.5 % (12.1-15.2)
[2024-10-28 04:58] LABS: Anion Gap 7.9 mEq/L (5.0-15.0); Potassium 4.9 mEq/L (3.5-5.1)
--- NOTE | 2024-10-28 09:31 | P.PN ---
Date of Service: 10/28/24 Subjective Subjective: No new changes Review of Systems 10-point ROS is otherwise unremarkable General: Other (none), As per HPI Eyes: Unremarkable ENT: Unremarkable Respiratory: Unremarkable Cardiovascular: Unremarkable Gastrointestinal: Unremarkable Genitourinary: Unremarkable Musculoskeletal: Unremarkable Integumentary: Lesions Neurological: Unremarkable Lymphatics: Unremarkable Physical Examination - Vital Signs reviewed - Physical Exam General: resting in no distress HEENT: Atraumatic, Normocephalic Neck: Supple Respiratory: Normal air movement Cardiovascular: Normal pulses, Regular rate/rhythm Capillary refill: <2 Seconds Gastrointestinal: Normal bowel sounds Musculoskeletal: No clubbing Integumentary: Skin lesion (great blood flow to right lower abdominal ulcerations, cleansed with Vashe, xeroform, nystatin placed and wound covered with abd bandage), Tenderness/swelling, Other (left lower leg with loosened skin lateral and posterior border. mild erythema, xeroform and dry nonstick telfa placed with abd dressing and kerlix) Neurological: Normal speech, Normal affect, Abnormal tone Lymphatics: No axilla or inguinal lymphadenopathy External genitalia: Deferred Rectal: Deferred - Studies Laboratory Data (last 24 hrs) 10/27/24 10/27/24 10/26/24 05:47 05:47 18:48 WBC 3.90 L Hgb 8.4 L D Hct 26.5 L Plt Count 408 H Sodium 131 L 129 L Potassium 3.8 D 4.4 BUN 26 H 21 H Creatinine 1.55 H 1.50 H Glucose 160 H 120 H Total Bilirubin 0.4 AST 19 ALT 17 Alkaline Phosphatase 70 Microbiology Data (last 24 hrs): 10/26/24 18:48 Blood - Blood Anaerobic Blood Culture - Final 10/27/24 05:47 Blood - Blood Anaerobic Blood Culture - Final Assessment And Plan - Plan Congenital neutropenia Nonhealing left lower extremity wound RICCI Hyponatremia Morbid obesity Obesity hypoventilation syndrome Obstructive sleep apnea Plan: Will admit under observation Start patient on normal saline infusion for RICCI General Surgery has been consulted. Will start patient on Santyl, Vashe, wet-to-dry dressing change as per general surgery recommendation IV clindamycin wound cultures obtained from abd and left lower ext wound are growing gram neg bacteria. pending C&S. Neutropenia and WBC dropped today to 3.0 and 7.8 respectively Pain control Heparin subcu for DVT prophylaxis Patient is full code - Advance Directives Does patient have a Living Will: No Does patient have a Durable POA for Healthcare: No Discharge Plan: Home Plan to discharge in: 24 Hours - Code Status/Comfort Care
--- NOTE | 2024-10-28 15:45 | EKG ---
Test Date: 2024-10-26 Test Time: 19:51:43 Nutritional Yeast Supervisor: AF MEASUREMENT RESULTS: Intervals: Rate: 98 CA: 142 QRSD: 80 QT: 370 QTc: 472 [place]: P: 54 CA: 142 QRS: 36 T: 32 INTERPRETIVE STATEMENTS: Normal sinus rhythm Normal ECG Compared to ECG 10/20/2024 16:29:24 Sinus tachycardia no longer present T-wave abnormality no longer present Electronically Signed On 10-28-24 15:43:10 IMPLEMENTATION SERVICES ANALYST by Gildardo Mayes
[2024-10-28] MEDS: LIDOCAINE HCL/EPINEPHRINE 20 ML MDV ONE (16:27)
[2024-10-28] MEDS ORDERED: propofoL 200 MG/20 ML VIAL IV ONE (17:50)
[2024-10-28] MEDS ORDERED: FENTANYL CITR 100 MCG/2 ML ONE (17:51)
[2024-10-28] MEDS ORDERED: MIDAZOLAM HCL 2 MG/2 ML INJ ONE (17:51)
--- NOTE | 2024-10-28 18:29 | P.OP ---
Preoperative diagnosis: LEFT Calf Chronic Wound Postoperative diagnosis: LEFT Calf Chronic Wound Primary procedure: Debridment of LEFT Calf Chronic Wound Anesthesia: GETA Estimated blood loss: 10cc Specimen: Cultures. Debridement Tissue Findings: 16 x 13 cm LEFT Calf Chronic Wound Complications: None Transferred to: Recovery Room Condition: Good
[2024-10-28] MEDS: MEPERIDINE HCL 25 MG/ML SYR ONE (18:38)
[2024-10-28] MEDS: HYDROMORPHONE HCL 1 MG/ML INJ ONE (18:41)
[2024-10-28] MEDS: TBO-FILGRASTIM 480 MCG/0.8 ML SYR SQ SCH (19:28)
[2024-10-28] MEDS: Mupirocin NASAL 2 APPL/1 GM TUBE NAS SCH (19:28)
--- NOTE | 2024-10-28 22:23 | OP ---
Date of Procedure: 10/28/2024 Surgeon: Clyde Solorio MD, Preoperative Diagnosis: Left calf chronic wound. Postoperative Diagnosis: Left calf chronic wound. Procedure Performed: Debridement of left calf chronic wound. Anesthesia: General endotracheal. Estimated Blood Loss: 10 cc. Specimens: Culture sent, both aerobic and anaerobic speciation. Debridement tissue. Findings: Approximately 16 cm x 13 cm left calf chronic wound. Complications: None. Disposition: The patient was transferred to recovery room in good condition. Procedure In Detail: After informed consent was obtained, the patient was prepped and draped in usua l sterile fashion. After adequate anesthesia was achieved, I debrided the left calf area, which was approximately 16 x 13 cm, which had significant slough and fibrinous buildup. The patient was unable to tolerate bedside dressing changes at this point due to the significant slough buildup and fibrino us exudate. As such, I debrided in the OR with a curette. Hemostasis was achieved with minimal elec trocautery and pressure. I then cleansed the area with sterile saline, scrubbing the wound in its en tirety until completely clear. Cultures were sent for both aerobic and anaerobic speciation. Debrid ement tissue was sent off for pathologic examination. The wound was then packed with Vashe-soaked fl uffs and Kerlix, and Mann applied. Sterile dressings were applied as described. The patient tolerate d procedure without incident or complication, and transferred to PACU in good condition. All counts were correct at the end of the c ase. NAEL/SRINATH Voice ID: [id number] Report ID: [id number]
[2024-10-29 07:05] LABS: Absolute Basophils 0.1 K/uL (0-0.5); Absolute Eosinophils 0.4 K/uL (0-0.5); Absolute Lymphocytes (CBC) 1.2 K/uL (0.7-4.9); Absolute Monocytes 1.1 K/uL (0.1-1.3); Absolute Neutrophil 0.5 K/uL (1.8-8.0); Basophils % 2.6 % (0-1.3); Eosinophils % 11.5 % (0-4.4); Hematocrit 23.3 % (39.6-49.0); Hemoglobin 7.5 g/dL (13.6-17.9); Lymphocytes % 36.3 % (15.3-44.8); MCH 25.4 pg (27.0-35.0); MCHC 32.4 g/dL (32.0-36.0); MCV 78.6 fL (80-100); MPV 7.5 fL (7.6-11.3); Monocytes % 33.4 % (3.3-12.3); Neutrophils % 16.2 % (41.7-73.7); Nucleated Red Blood Cells % 0.1 % (0-0); Platelets 388 thou/uL (152-406); RBC Red Blood Cell Count 2.96 M/uL (4.33-5.43)
[2024-10-29 07:20] LABS: Anion Gap 7.6 mEq/L (5.0-15.0); Potassium 4.6 mEq/L (3.5-5.1)
--- NOTE | 2024-10-29 08:23 | P.PN ---
Date of Service: 10/29/24 Subjective Subjective: POD #1 s/p debridement of chronic left lower leg wound Review of Systems 10-point ROS is otherwise unremarkable General: Other (none), As per HPI Eyes: Unremarkable ENT: Unremarkable Respiratory: Unremarkable Cardiovascular: Unremarkable Gastrointestinal: Unremarkable Genitourinary: Unremarkable Musculoskeletal: Unremarkable Integumentary: Lesions Neurological: Unremarkable Lymphatics: Unremarkable Physical Examination - Vital Signs reviewed - Physical Exam General: resting in no distress HEENT: Atraumatic, Normocephalic Neck: Supple Respiratory: Normal air movement Cardiovascular: Normal pulses, Regular rate/rhythm Capillary refill: <2 Seconds Gastrointestinal: Normal bowel sounds Musculoskeletal: No clubbing Integumentary: Skin lesion (great blood flow to right lower abdominal ulcerations, tenderness/swelling, POD #1 with surgical wound to left lower leg Neurological: Normal speech, Normal affect Lymphatics: No axilla or inguinal lymphadenopathy External genitalia: Deferred Rectal: Deferred - Studies Laboratory Data (last 24 hrs) 10/27/24 10/27/24 10/26/24 05:47 05:47 18:48 WBC 3.90 L Hgb 8.4 L D Hct 26.5 L Plt Count 408 H Sodium 131 L 129 L Potassium 3.8 D 4.4 BUN 26 H 21 H Creatinine 1.55 H 1.50 H Glucose 160 H 120 H Total Bilirubin 0.4 AST 19 ALT 17 Alkaline Phosphatase 70 Microbiology Data (last 24 hrs): 10/26/24 18:48 Blood - Blood Anaerobic Blood Culture - Final 10/27/24 05:47 Blood - Blood Anaerobic Blood Culture - Final Assessment And Plan - Plan Congenital neutropenia Nonhealing left lower extremity wound RICCI Hyponatremia Morbid obesity Obesity hypoventilation syndrome Obstructive sleep apnea Plan: Will admit Start patient on normal saline infusion for RICCI - improved POD #[address] Solorio performing debridement of left lower leg IV clindamycin wound cultures obtained from abd and left lower ext wound are growing gram neg bacteria. pending C&S. Neutropenia and WBC dropped today to 3.0 and 7.8 respectively, neupogen sc last pm - WBC 3.2, Hgb 7.5 this am Pain control Heparin subcu for DVT prophylaxis Patient is full code - Advance Directives Does patient have a Living Will: No Does patient have a Durable POA for Healthcare: No Discharge Plan: Home Plan to discharge in: 48 Hours - Code Status/Comfort Care
[2024-10-29] MEDS ORDERED: TBO-FILGRASTIM 480 MCG/0.8 ML SYR SQ SCH (09:00)
[2024-10-29 09:17] LABS: Atypical Lymphocytes 1 %; Band Neutrophils 1 % (0-1); Differential Total Cells Count 100; Eosinophils 15 % (0-3); Lymphocytes 35 % (15-42); Monocytes 21 % (0-10); Segmented Neutrophils 25 % (40-80)
[2024-10-29 09:18] LABS: Anisocytosis 1+; Blood Morphology Comment NOTED (NOT SEEN); Microcytosis 1+; Platelet Estimate ADEQ
[2024-10-29 09:21] LABS: Rouleau NOTED
[2024-10-29 09:22] LABS: Toxic Granulation 2+
--- NOTE | 2024-10-30 12:14 | P.PN ---
Date of Service: 10/30/24 Subjective Subjective: POD #1 s/p debridement of chronic left lower leg wound Review of Systems 10-point ROS is otherwise unremarkable General: Other (none), As per HPI Eyes: Unremarkable ENT: Unremarkable Respiratory: Unremarkable Cardiovascular: Unremarkable Gastrointestinal: Unremarkable Genitourinary: Unremarkable Musculoskeletal: Unremarkable Integumentary: Lesions Neurological: Unremarkable Lymphatics: Unremarkable Physical Examination - Vital Signs reviewed - Physical Exam General: resting in no distress HEENT: Atraumatic, Normocephalic Neck: Supple Respiratory: Normal air movement Cardiovascular: Normal pulses, Regular rate/rhythm Capillary refill: <2 Seconds Gastrointestinal: Normal bowel sounds Musculoskeletal: No clubbing Integumentary: Skin lesion (great blood flow to right lower abdominal ulcerations, tenderness/swelling, POD #2 with surgical wound to left lower leg requested and given fentanyl prior to dressing change Neurological: Normal speech, Normal affect Lymphatics: No axilla or inguinal lymphadenopathy External genitalia: Deferred Rectal: Deferred - Studies Laboratory Data (last 24 hrs) 10/27/24 10/27/24 10/26/24 05:47 05:47 18:48 WBC 3.90 L Hgb 8.4 L D Hct 26.5 L Plt Count 408 H Sodium 131 L 129 L Potassium 3.8 D 4.4 BUN 26 H 21 H Creatinine 1.55 H 1.50 H Glucose 160 H 120 H Total Bilirubin 0.4 AST 19 ALT 17 Alkaline Phosphatase 70 Microbiology Data (last 24 hrs): 10/26/24 18:48 Blood - Blood Anaerobic Blood Culture - Final 10/27/24 05:47 Blood - Blood Anaerobic Blood Culture - Final Assessment And Plan - Plan Congenital neutropenia Nonhealing left lower extremity wound RICCI Hyponatremia Morbid obesity Obesity hypoventilation syndrome Obstructive sleep apnea Plan: Will admit Start patient on normal saline infusion for RICCI - improved POD #[address] Solorio performing debridement of left lower leg IV clindamycin wound cultures obtained from abd and left lower ext wound are growing gram neg bacteria. pending C&S. 10/30/24 wound cultures to LLE + MRSA/+ E Cloace - sensitive to Vanc and Levaquin, 10/30/24 wound culture to right lower abdomen + Staph aureus/+A. Maylin/Haem - sensitive to Levaquin Neutropenia and WBC dropped today to 3.0 and 7.8 respectively, neupogen sc last pm - WBC 3.2, Hgb 7.5 this am, monitor neutropenia Pain control Heparin subcu for DVT prophylaxis Patient is full code - Advance Directives Does patient have a Living Will: No Does patient have a Durable POA for Healthcare: No Discharge Plan: Home Plan to discharge in: 48 Hours - Code Status/Comfort Care
[2024-10-30] MEDS: FENTANYL CITR 100 MCG/2 ML IV ONE ×2 (12:27→17:47)
[2024-10-30] MEDS: VANCOMYCIN 2 GM in NA CHLORIDE 0.9% 500 ML IVPB SCH (13:41)
[2024-10-30] MEDS: Levofloxacin500mg IV 500 MG/100 ML BAG IV SCH (20:06)
[2024-10-30] MEDS: HYDROMORPHONE HCL 1 MG/ML INJ IV ONE (20:07)
[2024-10-31 04:31] LABS: Absolute Basophils 0.1 K/uL (0-0.5); Absolute Eosinophils 0.6 K/uL (0-0.5); Absolute Lymphocytes (CBC) 1.1 K/uL (0.7-4.9); Absolute Monocytes 1.3 K/uL (0.1-1.3); Absolute Neutrophil 0.2 K/uL (1.8-8.0); Basophils % 2.5 % (0-1.3); Eosinophils % 17.2 % (0-4.4); Lymphocytes % 34.7 % (15.3-44.8); MCH 25.6 pg (27.0-35.0); MCHC 32.4 g/dL (32.0-36.0); MCV 79.2 fL (80-100); MPV 7.6 fL (7.6-11.3); Monocytes % 40.2 % (3.3-12.3); Neutrophils % 5.4 % (41.7-73.7); Nucleated Red Blood Cells % 0.4 % (0-0)
[2024-10-31] MEDS ORDERED: NA CHLORIDE 0.9% 250 ML IV SCH (08:00)
[2024-10-31 08:41] LABS: Percent Reticulocyte Count 1.99 % (0.4-2.05); RBC Red Blood Cell Count 3.18 M/uL (4.33-5.43)
[2024-10-31 08:55] LABS: RBC Red Blood Cell Count 3.25 M/uL (4.33-5.43)
[2024-10-31 08:56] LABS: Hemoglobin 8.2 g/dL (13.6-17.9); Platelets 430 thou/uL (152-406)
[2024-10-31 09:09] LABS: Ferritin 653.1 ng/mL (26-388)
[2024-10-31] MEDS: DIPHENHYDRAMINE 50 MG/ML VIAL IV ONE (09:56)
[2024-10-31] MEDS: ACETAMINOPHEN 500 MG TAB PO ONE (09:58)
--- NOTE | 2024-10-31 11:59 | P.DS ---
Admission Date: 10/27/24 Discharge Date: 11/04/24 Reason for Admission: worsening LLE wounds Brief History of Present Illness: Patient is a 34-year-old male with a past medical history of morbid obesity, obesity hypoventilation syndrome and obstructive sleep apnea. He also has a history of congenital neutropenia and chronic nonhealing wound involving the lateral aspect of his left calf. He was admitted for surgery to eval wounds and be treated with wound care and IV antibiotics. - Physical Exam General: Alert HEENT: Atraumatic, Normocephalic Neck: Supple Respiratory: Normal air movement Cardiovascular: Normal pulses, Regular rate/rhythm Capillary refill: <2 Seconds Gastrointestinal: Normal bowel sounds Musculoskeletal: No clubbing Integumentary: Skin lesion ( right lower abdominal ulceration covered with abd bandage), Tenderness/swelling, Other (left lower leg with loosened skin lateral and posterior border, covered with dry dresssing) Neurological: Normal speech, Normal affect, Abnormal tone Lymphatics: No axilla or inguinal lymphadenopathy Hospital Course: Mr. Maria presented with fever. He has He was noted to have chronic left calf wound, and right abdominal wound/ abscess. He has a history had multiple debridement by Dr. Murillo. Mr Maria was seen by surgery is status post ID of Left Left Calf. He is being treated with IV antibiotics, and wound care to abdominal and left calf wound. Patient received the wound care with Vashe, Santyl, Kerlix and Mann wraps while inpatient. He was noted to have chronic left calf wound. Is status post ID L) calf wound 10/28,L0 calf cultures, positive for Meth Resistant Staph Aureus, Right Abdomen wound culture + Enterobacter M Staph aureus, treated with IV vancomycin, Levaquin IV while inpatient. He will discharge to SNF for continued IV antibiotics. After Discharge w Need to Follow- Up with Surgery. Discharge antibiotics vancomycin 1.5g IVPB q12 x 2 weeks Levaquin 750mg IVPB daily x 2 weeks Labs: CBC, BMP, Vanc trough every 4 days daily dressing changes, wash with Vashe, damp to dry apply Sanytl, wrap w Kerlex and mann wrap Left calf wound 10/28 L) calf cultures, positive for Meth Resistant Staph Aureus right Abdomen wound culture + Enterobacter M Staph aureus on vancomycin Levaquin Assessment Right abdominal wound/abscess-on IV Levaquin, vancomycin, continue wound care. Left chronic calf wound, status post I&D ID L) calf wound Congenital neutropenia-resume home p.o. Granix Morbid obesity-recommend calorie restricted diet History of obstructive sleep apnea RICCI improved with IV fluids Morbid obesity chronic pain treated with prn analgesics while in patient Continue home medicines as previously prescribed GOAL: Clear understanding of disease process INSTRUCTIONS: Physician Discharge Instructions: -Discharge to SNF -Follow-up with surgery, call office for apt -Follow-up with PCP in 1 to 2 weeks -Please call Dr. Mcnamara at [phone] if any questions regarding hospital stay -Please call nursing station at [phone] if any nursing or medication questions -Return to the emergency room if symptoms worsen Diet: ADA, low sodium Activity: Fall precautions <Shena Mark - Last Filed: 11/04/24 17:30> Admission Date: 10/27/24 Discharge Date: 11/04/24 Hospital Course: Chart has been reviewed. Events of the last 24 hours have been noted. Case discussed with DAGO. I performed a substantial part of the MDM during this patient's care today. I personally made or approved the documented management plan and acknowledge its risk of complications. I agree with the findings and documentation provided in the DAGO's notes <David Mcnamara - Last Filed: 11/08/24 04:33> Disposition: TRANSFER TO [facility] Discharge Condition: GOOD Vital Signs/Physical Exam: Temp Pulse Resp BP Pulse Ox 98.3 F 65 16 113/74 94 10/31/24 08:00 10/31/24 08:00 10/31/24 09:54 10/31/24 08:00 10/31/24 08:00 Laboratory Data at Discharge: WBC 4.20 thou/uL (4.3-10.9) L 10/31/24 04:00 Hgb 8.2 g/dL (13.6-17.9) L 10/31/24 04:00 Hct 26.0 % (39.6-49.0) L 10/31/24 04:00 Plt Count 430 thou/uL (152-406) H 10/31/24 04:00 PT 17.4 SECONDS (9.4-12.5) H 10/26/24 18:48 INR 1.57 10/26/24 18:48 APTT 31.5 SECONDS (24.3-36.9) 10/26/24 18:48 Sodium 136 mEq/L (136-145) 10/29/24 06:54 Potassium 4.6 mEq/L (3.5-5.1) 10/29/24 06:54 BUN 19 mg/dL (7-18) H 10/29/24 06:54 Creatinine 1.17 mg/dL (0.70-1.30) 10/29/24 06:54 Glucose 153 mg/dL (74-106) H 10/29/24 06:54 Total Bilirubin 0.4 mg/dL (0.2-1.0) 10/26/24 18:48 AST 19 U/L (15-37) 10/26/24 18:48 ALT 17 U/L (16-61) 10/26/24 18:48 Alkaline Phosphatase 70 U/L (45-117) 10/26/24 18:48 <Shena Mark - Last Filed: 11/04/24 17:30> Vital Signs/Physical Exam: Temp Pulse Resp BP Pulse Ox 98.6 F 92 H 16 138/64 95 11/04/24 16:00 11/04/24 16:00 11/04/24 16:00 11/04/24 16:00 11/04/24 16:00 Laboratory Data at Discharge: WBC 8.00 thou/uL (4.3-10.9) 11/03/24 06:12 Hgb 8.4 g/dL (13.6-17.9) L 11/03/24 06:12 Hct 25.6 % (39.6-49.0) L 11/03/24 06:12 Plt Count 435 thou/uL (152-406) H 11/03/24 06:12 PT 17.4 SECONDS (9.4-12.5) H 10/26/24 18:48 INR 1.57 10/26/24 18:48 APTT 31.5 SECONDS (24.3-36.9) 10/26/24 18:48 Sodium 136 mEq/L (136-145) 11/04/24 04:20 Potassium 4.0 mEq/L (3.5-5.1) 11/04/24 04:20 BUN 15 mg/dL (7-18) 11/04/24 04:20 Creatinine 0.98 mg/dL (0.70-1.30) 11/04/24 04:20 Glucose 113 mg/dL (74-106) H 11/04/24 04:20 Phosphorus 4.2 mg/dL (2.5-4.9) 11/04/24 04:20 Magnesium 1.9 mg/dL (1.6-2.4) 11/04/24 04:20 Total Bilirubin 0.4 mg/dL (0.2-1.0) 10/26/24 18:48 AST 19 U/L (15-37) 10/26/24 18:48 ALT 17 U/L (16-61) 10/26/24 18:48 Alkaline Phosphatase 70 U/L (45-117) 10/26/24 18:48 <David Mcnamara - Last Filed: 11/08/24 04:33> Activity: Fall precautions Time spent managing pt's care (in minutes): 45 <Shena Mark - Last Filed: 11/04/24 17:30> <David Mcnamara - Last Filed: 11/08/24 04:33> Home Medications: Naproxen 500 mg PO BID 09/02/24 methocarbamoL [Robaxin*] 750 mg PO BID 09/02/24 Spironolactone [Aldactone*] 25 mg PO DAILY 30 Days #30 tab 10/02/24 Collagenase [Santyl Ointment*] 1 appl TOP DAILY #2 tube 10/24/24 Doxycycline Hyclate 100 mg PO BID #20 cap 10/24/24 Morphine Ir [MSIR (Morphine Sulfate IR)*] 15 mg PO BID #14 tab 10/24/24 Mupirocin Calcium [Bactroban Nasal*] 1 appl DANIELLE BID #2 tube 10/24/24 levoFLOXacin [Levaquin] 750 mg PO DAILY #10 tab 10/24/24 Physician Discharge Instructions: PROBLEM: Abdominal Wound Abcess/Debridement GOAL: Clear understanding of disease process INSTRUCTIONS: -Follow-up with surgery, call office for apt -Follow-up with PCP in 1 to 2 weeks -Please call Dr. Mcnamara at [phone] if any questions regarding hospital stay -Please call nursing station at [phone] if any nursing or medication quest ions -Return to the emergency room if symptoms worsen Diet: Low sodium Activity: Fall precautions Mr. Maria presented with fever, He has a history had multiple debridement by Dr. Murillo, at least 6. Patient received the wound care with Vashe, Santyl, Kerlix and Mann wraps. He was noted to have chronic left calf wound. Is status post ID L) calf wound 10/28,L0 calf cultures, positive for Meth Resistant Staph Aureus, Right Abdomen wound culture + Enterobacter M Staph aureus, treated with IV vancomycin, Levaquin IV while inpatient. Daily dressing change abdominal wound, left, Needed Follow-Up with Surgery after Discharge, to SNF for IV ABX, follow up with Surgery after Discharge. Discharge antibiotics vancomycin 1.5g IVPB q12 x 2 weeks Levaquin 750mg IVPB daily x 2 weeks Labs: CBC, BMP, Vanc trough every 4 days Assessment Chronic abdominal abscess-on IV Levaquin, vancomycin Left chronic calf wound, status post I&D ID L) calf wound Left calf wound 10/28,L0 calf cultures, positive for Meth Resistant Staph Aureus right Abdomen wound culture + Enterobacter M Staph aureus on vancomycin Levaquin Congenital neutropenia-resume home p.o. Granix Morbid obesity-recommend calorie restricted diet History of obstructive sleep apnea RICCI improved with IV fluids Morbid obesity Continue home medicines as previously prescribed GOAL: Clear understanding of disease process I Followup: Clyde Solorio MD [ACTIVE - CAN ADMIT] - 1-2 Weeks Joyce Boone MD [Primary Care Provider] - 1-2 Weeks
[2024-11-01 06:37] LABS: Absolute Basophils 0.1 K/uL (0-0.5); Absolute Eosinophils 0.9 K/uL (0-0.5); Absolute Lymphocytes (CBC) 1.9 K/uL (0.7-4.9); Absolute Monocytes 2.6 K/uL (0.1-1.3); Absolute Neutrophil 0.6 K/uL (1.8-8.0); Basophils % 1.3 % (0-1.3); Eosinophils % 14.3 % (0-4.4); Hematocrit 26.5 % (39.6-49.0); Hemoglobin 8.7 g/dL (13.6-17.9); Lymphocytes % 31.6 % (15.3-44.8); MCH 26.1 pg (27.0-35.0); MCHC 32.8 g/dL (32.0-36.0); MCV 79.7 fL (80-100); MPV 7.7 fL (7.6-11.3); Monocytes % 42.6 % (3.3-12.3); Neutrophils % 10.2 % (41.7-73.7); Nucleated RBC Absolute Count 0.1 (0-0); Nucleated Red Blood Cells % 0.9 % (0-0); Platelets 472 thou/uL (152-406); RBC Red Blood Cell Count 3.32 M/uL (4.33-5.43); Red Cell Distribution Width 23.6 % (12.1-15.2)
[2024-11-01 06:51] LABS: Albumin 2.1 g/dL (3.4-5.0); Anion Gap 5.9 mEq/L (5.0-15.0); Phosphorus 4.1 mg/dL (2.5-4.9); Potassium 3.9 mEq/L (3.5-5.1)
[2024-11-01 08:25] LABS: Atypical Lymphocytes 1 %; Differential Total Cells Count 100; Eosinophils 10 % (0-3); Lymphocytes 50 % (15-42); Metamyelocytes 1 % (0-0); Monocytes 32 % (0-10); Platelet Estimate ADEQ; Segmented Neutrophils 5 % (40-80)
[2024-11-01 08:26] LABS: Anisocytosis 2+; Basophilic Stippling 1+; Blood Morphology Comment NOTED (NOT SEEN); Microcytosis 1+
--- NOTE | 2024-11-01 10:38 | P.PN ---
Subjective Date of Service: 10/31/24 Chief Complaint: worsening LLE wounds No reported fevers, plan to ambulate with physical therapy to [facility] Pending [facility] facility for discharge planning <Shena Mark - Last Filed: 11/01/24 18:17> Date of Service: 10/31/24 <Juancho Mcnamararhonda Mirella - Last Filed: 11/08/24 04:32> Review of Systems 10-point ROS is otherwise unremarkable General: As per HPI <Shena Mark - Last Filed: 11/01/24 18:17> Physical Examination - Vital Signs Temperature: 98.8 F Blood Pressure: 150/71 Pulse: 104 Respirations: 18 Pulse Ox (%): 94 - Physical Exam General: Alert, In no apparent distress, Oriented x3 HEENT: Atraumatic, Normocephalic, PERRLA Neck: 2+ carotid pulse no bruit, JVD not distended Respiratory: Clear to auscultation bilaterally, Normal air movement Cardiovascular: Normal pulses, Regular rate/rhythm, Normal S1 S2 Capillary refill: <2 Seconds Gastrointestinal: Normal bowel sounds, Soft and benign, Other (Obese abdomen) Musculoskeletal: No clubbing, No swelling Integumentary: Other ( left lower ext wound, dry dressing covering the x-ray, abdominal dressing, daily dressing change) Neurological: Normal speech, Sensation intact, Cranial nerves 3-12 intact, Other (Generalized weakness) - Studies Microbiology Data (last 24 hrs): 10/27/24 05:47 Blood - Blood Aerobic Blood Culture - Final No growth in 5 days. 10/27/24 05:47 Blood - Blood Anaerobic Blood Culture - Final <Shena Mark - Last Filed: 11/01/24 18:17> Assessment And Plan - Plan Assessment And Plan - Plan Congenital neutropenia Recurrent nonhealing left lower extremity wound cellulitis Recurrent right abdominal wound abscess Microcytic anemia Hypoalbuminemia RICCI Hyponatremia Morbid obesity Obesity hypoventilation syndrome Obstructive sleep apnea Admit to [facility] normal saline infusion for RICCI - improved 10/[address] Solorio performing debridement of left lower leg-cultures positive for Staph aureus/Acineobacter Maylin/Haem-sensitive to vancomycin/ on IV vancomycin/Levaquin wound cultures obtained from abd and left lower ext wound are growing gram neg bacteria. 10/27 Right abdominal wound culture-MRSA -Enterobacter Cloacae on sensitive to vancomycin, Levaquin Neutropenia and WBC dropped today to 3.0 and 7.8 respectively, neupogen-WBCs stable-Granix 480 subcu daily -Daily dressing change per surgery -Iron studies Pain control DVT SCD Patient is full code Discharge Plan: Long Term - Code Status/Comfort Care Code Status: Full Code Critical Care: No Time Spent Managing PTS Care (In Minutes): 35 <Shena Mark - Last Filed: 11/01/24 18:17> Date of Service: 10/31/24 Chart has been reviewed. Events of the last 24 hours have been noted. Case discussed with DAGO. I performed a substantial part of the MDM during this patient's care today. I personally made or approved the documented management plan and acknowledge its risk of complications. I agree with the findings and documentation provided in the DAGO's notes <David Mcnamara - Last Filed: 11/08/24 04:32>
[2024-11-01] MEDS: Levofloxacin 750mg IV 750 MG/150 ML BAG IV SCH (14:27)
--- NOTE | 2024-11-01 18:21 | P.PN ---
Date of Service: 11/01/24 Subjective Chief Complaint: worsening LLE wounds Pending [facility] facility for discharge planning Ambulate with PT daily Review of Systems 10-point ROS is otherwise unremarkable Physical Examination - Vital Signs reviewed - Physical Exam General: Alert, In no apparent distress, Oriented x3 Neck: 2+ carotid pulse no bruit, JVD not distended Respiratory: Clear to auscultation bilaterally, Normal air movement Cardiovascular: Normal pulses, Regular rate/rhythm, Normal S1 S2 Gastrointestinal: Normal bowel sounds, Soft and benign, Other (Obese abdomen) Musculoskeletal: No clubbing, No swelling Integumentary: Other ( left lower ext wound, abdominal warm, dry dressing Neurological: Normal speech, Other (Generalized weakness) Assessment And Plan - Plan Congenital neutropenia Acute on chronic recurrent nonhealing left lower extremity wound cellulitis Acute on chronic recurrent right abdominal wound abscess Microcytic anemia Acute hypoalbuminemia RICCI resolved Hyponatremia improved Morbid obesity Obesity hypoventilation syndrome Obstructive sleep apnea Admit to [facility] normal saline infusion for RICCI - improved 10/[address] Solorio performing debridement of left lower leg-cultures positive for Staph aureus/Acineobacter Maylin/Haem-sensitive to vancomycin/ on IV vancomycin/Levaquin wound cultures obtained from abd and left lower ext wound are growing gram neg bacteria. 10/27 Right abdominal wound culture-MRSA -Enterobacter Cloacae on sensitive to vancomycin, Levaquin Neutropenia and WBC dropped today to 3.0 and 7.8 respectively, neupogen-WBCs stable-Granix 480 subcu daily -Daily dressing change per surgery -Iron studies Pain control DVT SCD Patient is full code Discharge Plan: Skilled Nursing - Code Status/Comfort Care Code Status: Full Code Critical Care: No Time Spent Managing PTS Care (In Minutes): 30 <Shena Mark - Last Filed: 11/01/24 18:18> Chart has been reviewed. Events of the last 24 hours have been noted. Case discussed with DAGO. I performed a substantial part of the MDM during this patient's care today. I personally made or approved the documented management plan and acknowledge its risk of complications. I agree with the findings and documentation provided in the DAGO's notes <David Mcnamara - Last Filed: 11/08/24 04:32>
[2024-11-01] MEDS: AMINO ACIDS/PROTEIN HYDROLYS 30 ML LIQUID.PKT PO SCH (21:00)
[2024-11-01] MEDS: VANCOMYCIN 2 GM in NA CHLORIDE 0.9% 500 ML IVPB SCH (21:09)
[2024-11-01] MEDS: HYDROMORPHONE HCL 1 MG/ML INJ IV PRN (22:21)
[2024-11-02 05:20] LABS: Absolute Basophils 0.1 K/uL (0-0.5); Absolute Eosinophils 0.7 K/uL (0-0.5); Absolute Lymphocytes (CBC) 2.2 K/uL (0.7-4.9); Absolute Monocytes 3.3 K/uL (0.1-1.3); Absolute Neutrophil 1.6 K/uL (1.8-8.0); Basophils % 1.4 % (0-1.3); Eosinophils % 9.4 % (0-4.4); Hematocrit 25.6 % (39.6-49.0); Hemoglobin 8.1 g/dL (13.6-17.9); MCH 25.3 pg (27.0-35.0); MCHC 31.7 g/dL (32.0-36.0); MCV 79.9 fL (80-100); MPV 7.9 fL (7.6-11.3); Neutrophils % 19.9 % (41.7-73.7); Nucleated Red Blood Cells % 0.3 % (0-0); Platelets 424 thou/uL (152-406); Red Cell Distribution Width 23.7 % (12.1-15.2)
[2024-11-02 05:22] LABS: Monocytes % 41.3 % (3.3-12.3)
[2024-11-02 05:34] LABS: Albumin 2.2 g/dL (3.4-5.0); Anion Gap 8.8 mEq/L (5.0-15.0); Phosphorus 4.3 mg/dL (2.5-4.9); Potassium 3.8 mEq/L (3.5-5.1)
[2024-11-02] MEDS: POTASSIUM CL SA 10 MEQ TAB PO ONE (10:33)
[2024-11-02 15:26] LABS: Specific Gravity 1.012 (1.005-1.030); Sqamous Epithelial None Seen /HPF (None Seen); Urine Bacteria <20 /HPF (<20); Urine Bilirubin NEGATIVE (Negative); Urine Blood Trace (Negative); Urine Clarity Clear (Clear); Urine Color Colorless (Yellow); Urine Crystals Unidentified Few /HPF (None Seen); Urine Culture Reflex Order NOT NEEDED; Urine Glucose NEGATIVE (Negative); Urine Ketones NEGATIVE (Negative); Urine Microscopic Reflex YN ORDER UMIC; Urine Mucus Slight /HPF (None Seen); Urine Nitrite NEGATIVE (Negative); Urine Protein NEGATIVE (Negative); Urine RBC <5 /HPF (None Seen); Urine Urobilinogen Normal (Normal); Urine WBC <5 /HPF (<5); Urine pH 5.5 (5.0-7.0)
--- NOTE | 2024-11-02 15:49 | P.PN ---
Date of Service: 11/02/24 Subjective Chief Complaint: worsening LLE wounds afebrile overnight, pending SNF for DC Review of Systems 10-point ROS is otherwise unremarkable Physical Examination - Vital Signs reviewed - Physical Exam General: Alert, In no apparent distress, Oriented x3, afebrile Neck: 2+ carotid pulse no bruit, JVD not distended Respiratory: Clear to auscultation bilaterally, Normal air movement Cardiovascular: Normal pulses, Regular rate/rhythm, Normal S1 S2 Gastrointestinal: Normal bowel sounds, Soft and benign, Other (Obese abdomen) Musculoskeletal: No clubbing, No swelling Integumentary: Other ( left lower ext wound, abdominal warm, dry dressing Neurological: Normal speech, Other (Generalized weakness) Assessment And Plan - Plan Congenital neutropenia Acute on chronic recurrent nonhealing left lower extremity wound cellulitis Acute on chronic recurrent right abdominal wound abscess Microcytic anemia Acute hypoalbuminemia RICCI resolved Hyponatremia improved Morbid obesity Obesity hypoventilation syndrome Obstructive sleep apnea Admit to [facility] normal saline infusion for RICCI - improved 10/[address] Solorio performing debridement of left lower leg-cultures positive for Staph aureus/Acineobacter Maylin/Haem-sensitive to vancomycin/ on IV vancomycin/Levaquin wound cultures obtained from abd and left lower ext wound are growing gram neg bacteria. 10/27 Right abdominal wound culture-MRSA -Enterobacter Cloacae on sensitive to vancomycin, Levaquin Neutropenia and WBC dropped today to 3.0 and 7.8 respectively, neupogen-WBCs stable-Granix 480 subcu daily -Daily dressing change per surgery -Iron studies Pain control DVT SCD Patient is full code Discharge Plan: Senior Living - Code Status/Comfort Care Code Status: Full Code Critical Care: No Time Spent Managing PTS Care (In Minutes): 25 <Shena Mark - Last Filed: 11/02/24 15:47> Chart has been reviewed. Events of the last 24 hours have been noted. Case discussed with DAGO. I performed a substantial part of the MDM during this patient's care today. I personally made or approved the documented management plan and acknowledge its risk of complications. I agree with the findings and documentation provided in the DAGO's notes <David Mcnamara - Last Filed: 11/08/24 04:32>
[2024-11-03 06:32] LABS: Absolute Basophils 0.1 K/uL (0-0.5); Absolute Eosinophils 0.6 K/uL (0-0.5); Absolute Lymphocytes (CBC) 2.2 K/uL (0.7-4.9); Absolute Monocytes 3.2 K/uL (0.1-1.3); Absolute Neutrophil 1.8 K/uL (1.8-8.0); Basophils % 1.3 % (0-1.3); Eosinophils % 7.5 % (0-4.4); Hematocrit 25.6 % (39.6-49.0); Hemoglobin 8.4 g/dL (13.6-17.9); Lymphocytes % 28.1 % (15.3-44.8); MCH 26.2 pg (27.0-35.0); MCHC 32.9 g/dL (32.0-36.0); MCV 79.5 fL (80-100); MPV 7.7 fL (7.6-11.3); Monocytes % 40.6 % (3.3-12.3); Neutrophils % 22.5 % (41.7-73.7); Nucleated Red Blood Cells % 0.4 % (0-0); Platelets 435 thou/uL (152-406); RBC Red Blood Cell Count 3.22 M/uL (4.33-5.43); Red Cell Distribution Width 23.9 % (12.1-15.2)
[2024-11-03 06:47] LABS: Anion Gap 8.8 mEq/L (5.0-15.0); Potassium 3.8 mEq/L (3.5-5.1)
[2024-11-03] MEDS: POTASSIUM CL SA 10 MEQ TAB PO ONE (08:57)
[2024-11-03 13:45] VITALS: O2SAT 97
[2024-11-04 00:43] VITALS: BMI 40.2
[2024-11-04 05:42] LABS: Albumin 2.2 g/dL (3.4-5.0); Magnesium 1.9 mg/dL (1.6-2.4); Phosphorus 4.2 mg/dL (2.5-4.9)
[2024-11-04] MEDS: FENTANYL 50 MCG/PATCH TD ONE (15:59)
[2024-11-04 17:08] VITALS: BP 138/64; TEMP 98.6
--- NOTE | 2024-11-04 17:50 | P.PN ---
Date of Service: 11/03/24 Subjective Chief Complaint: worsening LLE wounds pain controlled with prn analgesics Review of Systems 10-point ROS is otherwise unremarkable Physical Examination - Vital Signs reviewed - Physical Exam General: Alert, In no apparent distress noted Neck: 2+ carotid pulse no bruit, JVD not distended Respiratory: Clear to auscultation bilaterally, unlabored Cardiovascular: Normal pulses, Regular rate/rhythm, Gastrointestinal: Normal bowel sounds, obese, Musculoskeletal: No clubbing, No swelling Integumentary: Other ( left lower ext wound dry dressing, abdominal warm, dry dressing Neurological: Normal speech, Other (Generalized weakness) Assessment And Plan - Plan Congenital neutropenia Acute on chronic recurrent nonhealing left lower extremity wound cellulitis Acute on chronic recurrent right abdominal wound abscess Microcytic anemia Acute hypoalbuminemia RICCI resolved Hyponatremia improved Morbid obesity Obesity hypoventilation syndrome Obstructive sleep apnea Admit to [facility] normal saline infusion for RICCI - improved 10/[address] Solorio performing debridement of left lower leg-cultures positive for Staph aureus/Acineobacter Maylin/Haem-sensitive to vancomycin/ on IV vancomycin/Levaquin wound cultures obtained from abd and left lower ext wound are growing gram neg bacteria. 10/27 Right abdominal wound culture-MRSA -Enterobacter Cloacae on sensitive to vancomycin, Levaquin Neutropenia and WBC dropped today to 3.0 and 7.8 respectively, neupogen-WBCs stable-Granix 480 subcu daily -Daily dressing change daily Pain control DVT SCD Patient is full code Discharge Plan: [facility] - Code Status/Comfort Care Code Status: Full Code Critical Care: No Time Spent Managing PTS Care (In Minutes): 25 <Shena Mark - Last Filed: 11/04/24 17:48> Chart has been reviewed. Events of the last 24 hours have been noted. Case discussed with DAGO. I performed a substantial part of the MDM during this patient's care today. I personally made or approved the documented management plan and acknowledge its risk of complications. I agree with the findings and documentation provided in the DAGO's notes <David Mcnamara - Last Filed: 11/08/24 04:33>
[2024-11-11] MEDS ORDERED: TBO-FILGRASTIM 480 MCG/0.8 ML SYR SQ SCH (09:00)
== END 2024-11-04 16:57 | DRG 571 ==
LOC: ER 17:05 → ERHOLD 19:48 → 2ND 21:54 → OBSVTOIN 10-27 17:24
PROVIDERS: ADMIT Internal Medicine; ATTEND Hospitalist
PROC: 0JBP0ZZ Excision of Left Lower Leg Subcutaneous Tissue and Fascia, Open Approach (ICD-10-PCS; principal; 2024-10-28 17:30)
DX: L03.116 Cellulitis of left lower limb (principal); E66.2 Morbid (severe) obesity with alveolar hypoventilation; N17.9 Acute kidney failure, unspecified; E87.1 Hypo-osmolality and hyponatremia; Z68.41 Body mass index [BMI] 40.0-44.9, adult; L02.211 Cutaneous abscess of abdominal wall; S81.802A Unspecified open wound, left lower leg, initial encounter; B95.62 Methicillin resistant Staphylococcus aureus infection as the cause of diseases classified elsewhere; D64.9 Anemia, unspecified; D70.0 Congenital agranulocytosis; D50.9 Iron deficiency anemia, unspecified; E88.09 Other disorders of plasma-protein metabolism, not elsewhere classified
CPT/HCPCS: 36415; 80048; 80053; 80069; 80202; 81001; 82607; 82728; 83540; 83605; 83735; 85025; 85044; 85610; 85730; 86850; 86900; 86901; 87040; 87070; 87075; 87077; 87186; 87205; 88304; 93005; 96374; 96375; 97116; 97161; 97530; 99284; G0378; J1171; J1200; J1447; J1644; J2175; J2250; J2704; J3010; J3590; J7030; J7040; J7050

== ENCOUNTER 2025-01-08 20:21 | Emergency (ER) | payer OTHER ==
[2025-01-08] MEDS ORDERED: MORPHINE 4 MG/ML SYR ONE (21:30)
[2025-01-08] MEDS ORDERED: ONDANSETRON 4 MG/2 ML VIAL ONE (21:30)
[2025-01-08] MEDS ORDERED: VANCOMYCIN 1 GM/VIAL ONE (21:30)
[2025-01-08] MEDS ORDERED: ACETAMINOPHEN 500 MG TAB ONE (21:30)
[2025-01-08] MEDS ORDERED: NA CHLORIDE 0.9% 250 ML ONE (21:31)
[2025-01-08] MEDS ORDERED: NA CHLORIDE 0.9% 100 ML ONE (21:31)
[2025-01-08] MEDS ORDERED: PIPERACIL/TAZO 3.375 GM VIAL IV ONE (21:31)
[2025-01-08] MEDS ORDERED: NA CHLORIDE 0.9% 2,000 ML ONE (21:32)
--- NOTE | 2025-01-08 21:38 | RAD REPORT ---
EXAMINATION: ONE VIEW CHEST XR CLINICAL INDICATION: FEVER TECHNIQUE: Frontal chest projection is submitted. Examination is limited by patient positioning and t echnique. COMPARISON: 10/20/2024 FINDINGS: Mild interstitial pulmonary edema suspected. The heart is moderately enlarged. No displaced fractures identified. IMPRESSION: Mild CHF.
[2025-01-08 21:40] LABS: Absolute Basophils 0.1 K/uL (0-0.5); Absolute Eosinophils 0.5 K/uL (0-0.5); Absolute Lymphocytes (CBC) 1.4 K/uL (0.7-4.9); Absolute Monocytes 3.1 K/uL (0.1-1.3); Absolute Neutrophil 0.2 K/uL (1.8-8.0); Basophils % 2.4 % (0-1.3); Eosinophils % 8.6 % (0-4.4); Hemoglobin 11.2 g/dL (13.6-17.9); Lymphocytes % 27.1 % (15.3-44.8); MCH 26.5 pg (27.0-35.0); MCHC 33.9 g/dL (32.0-36.0); MCV 78.3 fL (80-100); MPV 8.5 fL (7.6-11.3); Monocytes % 58.3 % (3.3-12.3); Neutrophils % 3.6 % (41.7-73.7); Platelets 350 thou/uL (152-406); RBC Red Blood Cell Count 4.21 M/uL (4.33-5.43); Red Cell Distribution Width 20.6 % (12.1-15.2)
--- NOTE | 2025-01-08 21:45 | RAD REPORT ---
EXAM: CT brain without contrast HISTORY: HEADACHE COMPARISON: 04/25/2024 TECHNIQUE: Multiple contiguous axial images were obtained and a CT of the brain without contrast. Sag ittal and coronal reformats were performed. One or more of the following dose reduction techniques were used: Automated exposure control, adjust ment of the mA and/or kV according to patient size, and/or iterative reconstruction. FINDINGS: No evidence of hydrocephalus, intracranial hemorrhage, or extra-axial fluid collection. The brain is normal in morphology. No evidence of midline shift or areas of brain edema. The calvarium is intact. The visualized paranasal sinuses and mastoid air cells are essentially clear . IMPRESSION: No evidence of acute intracranial abnormality.
[2025-01-08 21:46] LABS: PT Prothrombin Time 14.9 SECONDS (10.0-13.0); PTT, Activated Partial Thromb 32.3 SECONDS (24.3-36.9); Protime INR 1.32
[2025-01-08 21:49] LABS: Influenza A Ag Negative; Influenza B Ag Negative; SARS-CoV-2 Antigen Rapid Res Negative (Negative)
[2025-01-08 21:50] LABS: Albumin 2.7 g/dL (3.4-5.0); Albumin/Globulin Ratio 0.5 (1.1-1.8); Anion Gap 8.2 mEq/L (5.0-15.0); Bilirubin Total 0.3 mg/dL (0.2-1.0); Globulin 5.9 g/dL (2.3-3.5); Potassium 4.2 mEq/L (3.5-5.1); Protein, Total 8.6 g/dL (6.4-8.2)
[2025-01-08 21:50] LABS: Sqamous Epithelial <5 /HPF (None Seen); Urine Bacteria None Seen /HPF (<20); Urine Bilirubin NEGATIVE (Negative); Urine Blood 3+ (Negative); Urine Clarity Clear (Clear); Urine Color Light-Yellow (Yellow); Urine Crystals Unidentified Few /HPF (None Seen); Urine Culture Reflex Order NOT NEEDED; Urine Glucose NEGATIVE (Negative); Urine Ketones NEGATIVE (Negative); Urine Microscopic Reflex YN ORDER UMIC; Urine Nitrite NEGATIVE (Negative); Urine Protein TRACE (Negative); Urine RBC >50 /HPF (None Seen); Urine Urobilinogen Normal (Normal); Urine WBC <5 /HPF (<5); Urine Yeast (Budding) Trace /HPF (None Seen)
[2025-01-08 22:29] LABS: Band Neutrophils 1 % (0-1); Differential Total Cells Count 100; Eosinophils 7 % (0-3); Lymphocytes 40 % (15-42); Monocytes 21 % (0-10); Reactive Lymphocytes 27 %; Segmented Neutrophils 3 % (40-80)
[2025-01-08 22:30] LABS: Anisocytosis 1+; Blood Morphology Comment NOTED (NOT SEEN); Microcytosis 1+; Platelet Estimate ADEQ
--- NOTE | 2025-01-08 22:49 | ER ---
Nurse's Notes [facility] Name: Abel Maria Age: 34 yrs Sex: Male : 1990 Arrival Date: 01/08/2025 Time: 20:21 Bed 2 Private MD: Diagnosis: Fever at home, resolved. Congenital neutropenia Presentation: 01/08 20:31 Chief complaint: EMS states: Lethargy, weakness, SOB, and a severe headache. vc1 Coronavirus screen: Client denies travel out of the [place] in the last 14 days. At this time, the client does not indicate any symptoms associated with coronavirus-19. Ebola Screen: Patient negative for fever greater than or equal to 101.5 degrees Fahrenheit, and additional compatible Ebola Virus Disease symptoms Patient denies exposure to infectious person. Patient denies travel to an Ebola-affected area in the 21 days before illness onset. No symptoms or risks identified at this time. 20:31 Method Of Arrival: EMS: [facility] vc1 20:31 Initial Sepsis Screen: Does the patient meet any 2 criteria? RR > 20 per min. HR > 90 vc1 bpm. Yes Does the patient have a suspected source of infection? No. Patient's initial sepsis screen is negative. Risk Assessment: Do you want to hurt yourself or someone else? Patient reports no desire to harm self or others. Onset of symptoms is unknown. 20:31 Acuity: RICH 3 vc1 Triage Assessment: 20:57 General: Appears in no apparent distress. uncomfortable, Behavior is cooperative. Pain: vc1 Complains of pain in back of head and between the eyes Pain does not radiate. Pain currently is 8 out of 10 on a pain scale. Quality of pain is described as pressure, Also complains of shortness of breath. EENT: No deficits noted. No signs and/or symptoms were reported regarding the EENT system. Neuro: Level of Consciousness is awake, alert, obeys commands, Oriented to person, place, time, situation, Appropriate for age. Cardiovascular: Capillary refill < 3 seconds Patient's skin is warm and dry. Respiratory: Airway is patent Respiratory effort is even, unlabored, Respiratory pattern is symmetrical, tachypnea. GI: Abdomen is obese. : No deficits noted. No signs and/or symptoms were reported regarding the genitourinary system. Derm: Skin is intact, is healthy with good turgor, Skin is dry, Skin is normal, Skin temperature is hot. Musculoskeletal: Circulation, motion, and sensation intact. Range of motion: intact in all extremities. Historical: - Allergies: 20:51 Bactrim; vc1 20:51 Dilaudid; vc1 - Home Meds: 20:51 gabapentin oral [Active]; Morphine Oral [Active]; OxyContin Oral [Active]; Robaxin Oral vc1 [Active]; Trazodone Oral [Active]; - PMHx: 20:51 Chronic leg wound; Left leg (2021); Chronic wound to RLQ (July 2023); Congenital vc1 neutropenia; Sleep Apnea; Anemia; Cellulitis; Congestive heart failure; Depressive disorder; Kidney disease; agranulocytosis; - PSHx: 20:51 eye; leg; rectum; vc1 - Immunization history:: Client reports receiving the 2nd dose of the Covid vaccine, Flu vaccine is not up to date. - Infectious Disease History:: MRSA (w/in 1 year), . - Social history:: Smoking status: Patient/guardian denies using tobacco, but has a distant history of tobacco abuse. Screenin:31 [facility] ED Fall Risk Assessment (Adult) History of falling in the last 3 months, vc1 including since admission No falls in past 3 months (0 pts) Confusion or Disorientation No (0 pts) Intoxicated or Sedated No (0 pts) Impaired Gait Yes (1 pt) Mobility Assist Device Used Yes (1 pt) Altered Elimination No (0 pt) Score/Fall Risk Level 0 - 2 = Low Risk Oriented to surroundings, Maintained a safe environment, Educated pt \T\ family on fall prevention, incl call for assistance when getting out of bed. 20:58 Abuse screen: Denies threats or abuse. Nutritional screening: No deficits noted. vc1 Tuberculosis screening: No symptoms or risk factors identified. Assessment: 21:33 General: Appears in no apparent distress. uncomfortable, Behavior is calm, cooperative. le1 Pain: Complains of pain in right leg and left leg Pain currently is 7 out of 10 on a pain scale. Quality of pain is described as aching. Neuro: No deficits noted. Cardiovascular: No deficits noted. Respiratory: No deficits noted. GI: No deficits noted. : No deficits noted. EENT: No deficits noted. Musculoskeletal: No deficits noted. 22:30 Reassessment: Patient and/or family updated on plan of care and expected duration. Pain ha1 level reassessed. Patient is alert, oriented x 3, equal unlabored respirations, skin warm/dry/pink. 23:30 Reassessment: Patient and/or family updated on plan of care and expected duration. Pain ha1 level reassessed. Patient is alert, oriented x 3, equal unlabored respirations, skin warm/dry/pink. DISCHARGE PENDING ON MEDICATION INFUSION TO BE COMPLETED. Vital Signs: 20:31 BP 144 / 79; Pulse 107; Resp 23; Temp 99.5; Pulse Ox 93% on R/A; Weight 110.22 kg; vc1 Height 5 ft. 2 in. ; Pain 8/10; 22:37 BP 129 / 73; Pulse 98; Resp 17 S; Temp 98.4(O); Pulse Ox 97% on 1 lpm NC; ha1 23:31 BP 116 / 71; Pulse 100; Resp 19 S; Pulse Ox 96% on 1 lpm NC; ha1 20:31 Body Mass Index 44.44 (110.22 kg, 157.48 cm) vc1 20:31 Pain Scale: Adult vc1 ED Course: 20:21 Patient arrived in ED. [id number] 20:25 Elliot Phillips MD is Attending Physician. sp3 20:31 Arm band placed on right wrist. vc1 20:35 Berta Martin, RN is Primary Nurse. le1 20:59 Triage completed. vc1 21:21 Initial lab(s) drawn, by al, sent to lab. First set of blood cultures drawn by me, le1 Second set of blood cultures drawn by al, COVID swab sent to lab. Flu and/or RSV swab sent to lab. 21:22 Chest Single View XRAY In Process Unspecified. EDMS 21:32 Patient has correct armband on for positive identification. Bed in low position. Call le1 light in reach. Side rails up X2. Provided Education on: Informed to use call light for assistance. 21:32 Inserted saline lock: 20 gauge in right forearm, using aseptic technique. Blood le1 collected. Flushed with 10 mL NS. 21:33 Oxygen administration via nasal cannula \T\ 3L/min. le1 21:40 CT Head Brain wo Cont In Process Unspecified. EDMS 21:43 Urine collected: voided EKG done, by ED staff, reviewed by Elliot Phillips MD. le1 21:49 Kat Barrow, RN is Primary Nurse. 1 01/09 00:07 No provider procedures requiring assistance completed. IV discontinued, intact, ha1 bleeding controlled, No redness/swelling at site. Pressure dressing applied. Administered Medications: 01/08 21:40 Drug: Acetaminophen PO 1000 mg PO once Route: PO; ha1 22:00 Follow up: Response: No adverse reaction; Temperature is decreased ha1 21:40 Drug: NS 0.9% IV (30 ml/kg) 30 ml/kg IV at bolus once; Sepsis Protocol; to be given as ha1 a bolus over 90 minutes Route: IV; Rate: bolus; Site: right forearm; 01/09 00:07 Follow up: Response: No adverse reaction; IV Status: Completed infusion 1 01/08 21:40 Drug: Ondansetron IVP 4 mg IVP once; over 2 minutes Route: IVP; Site: right forearm; 1 22:00 Follow up: Response: No adverse reaction; Marked relief of symptoms ha1 21:42 Drug: morphine IVP or IV 4 mg IVP once over 4 mins Route: IVP; Infused Over: 4 mins; 1 Site: right forearm; 22:00 Follow up: Response: No adverse reaction; Marked relief of symptoms; Pain is decreased; ha1 RASS: Alert and Calm (0) 21:49 Drug: Piperacillin-Tazobactam IVPB 3.375 grams IVPB once over 60 mins; (mix in NS 100 ha1 mL) Route: IVPB; Infused Over: 60 mins; Site: right forearm; 22:40 Follow up: Response: No adverse reaction; IV Status: Completed infusion; IV Intake: ha1 100ml 22:40 Drug: vancoMYCIN IVPB 1 grams IVPB once over 2 hrs Route: IVPB; Infused Over: 2 hrs; 1 Site: right forearm; 01/09 00:07 Follow up: Response: No adverse reaction; IV Status: Completed infusion; IV Intake: ha1 250ml Medication: 00:09 VIS not applicable for this client. ha1 Intake: 01/08 22:40 IV: 100ml; Total: 100ml. ha1 01/09 00:07 IV: 250ml; Total: 350ml. ha1 Output: 01/08 21:45 Urine: 1000ml (Voided); Total: 1000ml. le1 Outcome: 22:48 Discharge ordered by . sp3 01/09 00:08 Discharged to home via wheelchair, ha1 Condition: stable Discharge instructions given to patient, Instructed on discharge instructions, follow up and referral plans. medication usage, Demonstrated understanding of instructions, follow-up care, medications, Prescriptions given X 1, 00:09 Patient left the ED. ha1 Signatures: Dispatcher [employer] EDMS Elliot Phillips MD MD sp3 Renetta Llamas [id number] Arlette Bauer RN RN vc1 Kat Barrow RN RN ha1 Berta Martin RN RN le1
--- NOTE | 2025-01-08 22:49 | EDPHYS ---
Physician Documentation [facility] Name: Abel Maria Age: 34 yrs Sex: Male : 1990 Arrival Date: 01/08/2025 Time: 20:21 Bed 2 Private MD: ED Physician Elliot Phillips HPI: 01/08 20:55 This 34 yrs old Male presents to ER via EMS with complaints of Weakness, Fever. sp3 20:55 34-year-old male with history of chronic congenital neutropenia, chronic wounds now sp3 presents to the ED with chief complaint fever, body aches, fatigue and headache for the last 2 days. Patient states he has also been dizzy and weak at home. His home health nurse sent him to the ED. He denies any other symptoms including known sick contacts, worsening chronic wounds, abdominal pain, vomiting, diarrhea or any other signs or symptoms on ROS at this time.. Historical: - Allergies: 20:51 Bactrim; vc1 20:51 Dilaudid; vc1 - Home Meds: 20:51 gabapentin oral [Active]; Morphine Oral [Active]; OxyContin Oral [Active]; Robaxin Oral vc1 [Active]; Trazodone Oral [Active]; - PMHx: 20:51 Chronic leg wound; Left leg (2021); Chronic wound to RLQ (July 2023); Congenital vc1 neutropenia; Sleep Apnea; Anemia; Cellulitis; Congestive heart failure; Depressive disorder; Kidney disease; agranulocytosis; - PSHx: 20:51 eye; leg; rectum; vc1 - Immunization history:: Client reports receiving the 2nd dose of the Covid vaccine, Flu vaccine is not up to date. - Infectious Disease History:: MRSA (w/in 1 year), . - Social history:: Smoking status: Patient/guardian denies using tobacco, but has a distant history of tobacco abuse. ROS: 20:57 Eyes: Negative for injury, pain, redness, and discharge, ENT: Negative for injury, sp3 pain, and discharge, Neck: Negative for injury, pain, and swelling, Cardiovascular: Negative for chest pain, palpitations, and edema, Abdomen/GI: Negative for abdominal pain, nausea, vomiting, diarrhea, and constipation, MS/Extremity: Negative for injury and deformity, Psych: Negative for depression, anxiety, suicide ideation, homicidal ideation, and hallucinations, Allergy/Immunology: Negative for hives, rash, and allergies, 20:57 All other systems are negative, Exam: 20:57 Constitutional: This is a well developed, well nourished patient who is awake, alert, sp3 and in no acute distress. Head/Face: Normocephalic, atraumatic. Eyes: Pupils equal round and reactive to light, extra-ocular motions intact. Lids and lashes normal. Conjunctiva and sclera are non-icteric and not injected. Cornea within normal limits. Periorbital areas with no swelling, redness, or edema. Neck: Trachea midline, no thyromegaly or masses palpated, and no cervical lymphadenopathy. Supple, full range of motion without nuchal rigidity, or vertebral point tenderness. No Meningismus. Chest/axilla: Normal chest wall appearance and motion. Nontender with no deformity. No lesions are appreciated. Respiratory: Lungs have equal breath sounds bilaterally, clear to auscultation and percussion. No rales, rhonchi or wheezes noted. No increased work of breathing, no retractions or nasal flaring. Abdomen/GI: Soft, non-tender, with normal bowel sounds. No distension or tympany. No guarding or rebound. No evidence of tenderness throughout. Back: No spinal tenderness. No costovertebral tenderness. Full range of motion. Neuro: Awake and alert, GCS 15, oriented to person, place, time, and situation. Cranial nerves II-XII grossly intact. Motor strength 5/5 in all extremities. Sensory grossly intact. Cerebellar exam normal. Normal gait. Psych: Awake, alert, with orientation to person, place and time. Behavior, mood, and affect are within normal limits. 20:57 Cardiovascular: Rate: tachycardic, 20:57 Skin: Chronic wounds noted.. 21:43 ECG was reviewed by the Attending Physician. EKG demonstrates sinus tachycardia at 108 sp3 bpm with normal intervals, normal QRS, normal axis, nonspecific diffuse ST's ST changes without evidence of acute ischemia. Vital Signs: 20:31 BP 144 / 79; Pulse 107; Resp 23; Temp 99.5; Pulse Ox 93% on R/A; Weight 110.22 kg; vc1 Height 5 ft. 2 in. ; Pain 8/10; 22:37 BP 129 / 73; Pulse 98; Resp 17 S; Temp 98.4(O); Pulse Ox 97% on 1 lpm NC; ha1 23:31 BP 116 / 71; Pulse 100; Resp 19 S; Pulse Ox 96% on 1 lpm NC; ha1 20:31 Body Mass Index 44.44 (110.22 kg, 157.48 cm) vc1 20:31 Pain Scale: Adult vc1 MDM: 20:34 Medical Screening Exam initiated sp3 21:00 Data reviewed: vital signs, nurses notes, old medical records, lab test result(s), sp3 radiologic studies. 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 Differential diagnosis includes recurrent wound infection, pneumonia, COVID-19, influenza, other viral illness, or other infectious process. Workup will include CT scan of the head given his headache, chest x-ray, UA, swabs, general labs, IV fluids, antibiotics, pain control with probable admission.. 22:47 ED course: Normal labs in the ED with neutrophil percent being at 3.6. Lactate normal sp3 and patient afebrile with normal vital signs in no acute distress. He will finish antibiotics 1 dose in ED and discharge patient home on p.o. Augmentin. Patient to follow-up with his PCP for further management. No acute inpatient criteria met.. 01/08 20:46 Order name: Blood Culture Adult (2) 3 01/08 20:46 Order name: CBC with Diff; Complete Time: 22:36 3 01/08 20:46 Order name: CMP; Complete Time: 22:03 [facility] 01/08 20:46 Order name: Lactate w/ 2H reflex if indic.; Complete Time: 22:03 3 01/08 20:46 Order name: Protime (+inr); Complete Time: 22:03 [facility] 01/08 20:46 Order name: Ptt, Activated; Complete Time: 22:03 3 01/08 20:46 Order name: Urinalysis w/ reflexes; Complete Time: 22:03 3 01/08 20:47 Order name: COVID-19 Ag + Flu A+B Ag; Complete Time: 22:03 [facility] 01/08 21:43 Order name: Manual Differential; Complete Time: 22:36 EDMS 01/08 20:46 Order name: Chest Single View XRAY; Complete Time: 22:03 3 01/08 20:46 Order name: CT Head Brain wo Cont; Complete Time: 22:03 3 01/08 20:46 Order name: EKG; Complete Time: 20:47 sp3 01/08 20:46 Order name: Accucheck; Complete Time: 21:50 sp3 01/08 20:46 Order name: Cardiac monitoring; Complete Time: 21:31 3 01/08 20:46 Order name: EKG - Nurse/Tech; Complete Time: 21:42 3 01/08 20:46 Order name: IV Saline Lock - Large Bore; Complete Time: 21:31 3 01/08 20:46 Order name: Labs collected and sent; Complete Time: 21:31 3 01/08 20:46 Order name: O2 Per Protocol; Complete Time: 21:31 3 01/08 20:46 Order name: O2 Sat Monitoring; Complete Time: 21:31 3 01/08 20:46 Order name: Vital Signs; Complete Time: 21:32 sp3 Administered Medications: 21:40 Drug: Acetaminophen PO 1000 mg PO once Route: PO; ha1 22:00 Follow up: Response: No adverse reaction; Temperature is decreased ha1 21:40 Drug: NS 0.9% IV (30 ml/kg) 30 ml/kg IV at bolus once; Sepsis Protocol; to be given as ha1 a bolus over 90 minutes Route: IV; Rate: bolus; Site: right forearm; 01/09 00:07 Follow up: Response: No adverse reaction; IV Status: Completed infusion 1 01/08 21:40 Drug: Ondansetron IVP 4 mg IVP once; over 2 minutes Route: IVP; Site: right forearm; ha1 22:00 Follow up: Response: No adverse reaction; Marked relief of symptoms ha1 21:42 Drug: morphine IVP or IV 4 mg IVP once over 4 mins Route: IVP; Infused Over: 4 mins; ha1 Site: right forearm; 22:00 Follow up: Response: No adverse reaction; Marked relief of symptoms; Pain is decreased; ha1 RASS: Alert and Calm (0) 21:49 Drug: Piperacillin-Tazobactam IVPB 3.375 grams IVPB once over 60 mins; (mix in NS 100 ha1 mL) Route: IVPB; Infused Over: 60 mins; Site: right forearm; 22:40 Follow up: Response: No adverse reaction; IV Status: Completed infusion; IV Intake: ha1 100ml 22:40 Drug: vancoMYCIN IVPB 1 grams IVPB once over 2 hrs Route: IVPB; Infused Over: 2 hrs; ha1 Site: right forearm; 01/09 00:07 Follow up: Response: No adverse reaction; IV Status: Completed infusion; IV Intake: ha1 250ml Disposition Summary: 01/08/25 22:48 Discharge Ordered Notes: Location: Home sp3 Condition: Stable sp3 Diagnosis - Fever at home, resolved. Congenital neutropenia sp3 Followup: sp3 - With: Private Physician - When: Upon discharge from the Emergency Department - Reason: Continuance of care Discharge Instructions: - Discharge Summary Sheet sp3 - Fever, Adult sp3 Forms: - Medication Reconciliation Form sp3 - Antibiotic Education sp3 - Prescription Opioid Use sp3 - Patient Portal Instructions sp3 - Leadership Thank You Letter sp3 Prescriptions: - Augmentin 875-125 mg Oral Tablet - take 1 tablet ORAL route every 12 hours for 10 days; 20 tablet; Refills: 0, sp3 Product Selection Permitted Signatures: Dispatcher [employer] Elliot Quesada MD MD sp3 Arlette Bauer RN RN vc1 Kat Barrow RN RN ha1
[2025-01-09 00:47] VITALS: TEMP 98.4
[2025-01-09 00:49] VITALS: BP 116/71; O2SAT 96
--- NOTE | 2025-01-09 12:03 | EKG ---
Test Date: 2025-01-08 Test Time: 21:39:33 Food And Beverage Manager: [id number] MEASUREMENT RESULTS: Intervals: Rate: 108 MT: 134 QRSD: 74 QT: 348 QTc: 466 Morton: P: 53 MT: 134 QRS: 49 T: 21 INTERPRETIVE STATEMENTS: Sinus tachycardia Nonspecific T wave abnormality Abnormal ECG Compared to ECG 10/26/2024 19:51:43 T-wave abnormality now present Sinus rhythm no longer present Electronically Signed On 01-09-25 12:02:19 FLIGHT SURVEYOR by Gildardo Mayes
== END 2025-01-09 00:09 | disposition home or self-care (01) ==
LOC: ER 20:21
DX: D70.0 Congenital agranulocytosis (principal); R53.1 Weakness; R53.83 Other fatigue; Z11.52 Encounter for screening for COVID-19
CPT/HCPCS: 96365; 96367; 93005; 87040 ×2; 85025; 81001; 36415; 85610; 83605; 85730; 80053; 70450; 71045; 96375; 99285; 87428; J2543; J3370; J2405; J7050; J7030

== ENCOUNTER 2025-02-26 18:58 | Inpatient (IN) | payer OTHER, MEDICAID ==
[2025-02-26] MEDS ORDERED: MORPHINE 4 MG/ML SYR ONE (20:34)
[2025-02-26] MEDS ORDERED: ONDANSETRON 4 MG/2 ML VIAL ONE (20:34)
[2025-02-26] MEDS ORDERED: VANCOMYCIN 1 GM/VIAL ONE (20:34)
[2025-02-26] MEDS ORDERED: NA CHLORIDE 0.9% 250 ML ONE (20:35)
[2025-02-26 20:41] LABS: Absolute Basophils 0.1 K/uL (0-0.5); Absolute Eosinophils 0.2 K/uL (0-0.5); Absolute Lymphocytes (CBC) 1.5 K/uL (0.7-4.9); Absolute Monocytes 1.1 K/uL (0.1-1.3); Absolute Neutrophil 1.1 K/uL (1.8-8.0); Basophils % 3.4 % (0-1.3); Hematocrit 39.4 % (39.6-49.0); MCH 26.7 pg (27.0-35.0); MCV 80.9 fL (80-100); Monocytes % 27.7 % (3.3-12.3); Neutrophils % 25.9 % (41.7-73.7); Nucleated Red Blood Cells % 0.1 % (0-0); Platelets 284 thou/uL (152-406); RBC Red Blood Cell Count 4.87 M/uL (4.33-5.43); Red Cell Distribution Width 19.3 % (12.1-15.2)
[2025-02-26 21:01] LABS: Albumin/Globulin Ratio 0.5 (1.1-1.8); Anion Gap 6.4 mEq/L (5.0-15.0); Bilirubin Total 0.4 mg/dL (0.2-1.0); Potassium 3.4 mEq/L (3.5-5.1)
--- NOTE | 2025-02-26 21:47 | EDPHYS ---
Physician Documentation [facility] Name: Abel Maria Age: 34 yrs Sex: Male : 1990 Arrival Date: 02/26/2025 Time: 18:58 Bed 27 Private MD: ED Physician Federico Boles HPI: 02/26 19:10 This 34 yrs old Other Race Male presents to ER via Unassigned with complaints of sp4 General complaint . 02/27 22:16 Patient with history of diabetes presents with worsening ulcerating lesions to the left sp4 lower extremity.. Patient has history of chronic ulcerated lesions left lower extremity with previous surgical debridement. Patient is here on advice of his general surgeon. . Historical: - Allergies: 02/26 19:27 Bactrim; al5 19:27 Dilaudid; al5 - PMHx: 19:27 agranulocytosis; Anemia; Cellulitis; Chronic leg wound; Left leg (2021); Chronic wound al5 to RLQ (July 2023); Congenital neutropenia; Congestive heart failure; depressive disorder; kidney disease; Sleep Apnea; - PSHx: 19:27 eye; leg; rectum; al5 - Immunization history:: Adult Immunizations up to date. - Infectious Disease History:: Denies. - Social history:: Smoking status: Patient denies any tobacco usage or history of. - Family history:: not pertinent. ROS: 02/27 22:16 Constitutional: Negative for fever, chills, and weight loss, positive worsening pain sp4 left lower extremity positive worsening ulcerative lesions left lower extremity All other systems are negative, Exam: 22:16 Constitutional: This is a well developed, well nourished patient who is awake, alert, sp4 and in no acute distress. Head/Face: Normocephalic, atraumatic. Eyes: Pupils equal round and reactive to light, extra-ocular motions intact. Lids and lashes normal. Conjunctiva and sclera are not injected. Cornea within normal limits. Periorbital areas with no swelling, redness, or edema. ENT: Nares patent. No nasal discharge, no septal abnormalities noted. Tympanic membranes are normal and external auditory canals are clear. Oropharynx with no redness, swelling, or masses, exudates, or evidence of obstruction, uvula midline. Mucous membranes moist. Neck: Trachea midline, no thyromegaly or masses palpated, and no cervical lymphadenopathy. Supple, full range of motion without nuchal rigidity, or vertebral point tenderness. Chest/axilla: Normal chest wall appearance and motion. Nontender with no deformity. No lesions are appreciated. Cardiovascular: Regular rate and rhythm with a normal S1 and S2. No gallops, murmurs, or rubs. Normal PMI, no JVD. No pulse deficits. Respiratory: Lungs have equal breath sounds bilaterally, clear to auscultation and percussion. No rales, rhonchi or wheezes noted. No increased work of breathing, no retractions or nasal flaring. Abdomen/GI: Soft, with normal bowel sounds. No distension or tympany. No guarding or rebound. No evidence of tenderness throughout. Back: No spinal tenderness. No costovertebral tenderness. Skin: Warm, dry with normal turgor. Normal color with no rashes, no lesions, and no evidence of cellulitis. MS/ Extremity: Pulses equal, no cyanosis. Neurovascular intact. Full, normal range of motion. Positive extensive left lower extremity ulcerating lesions with denuded epidermis. Exposed subcutaneous tissue. Lesions appear chronic. Neuro: Awake and alert, GCS 15, oriented to person, place, time, and situation. Cranial nerves II-XII grossly intact. Motor strength 5/5 in all extremities. Sensory grossly intact. Psych: Awake, alert, with orientation to person, place and time. Behavior, mood, and affect are within normal limits Vital Signs: 02/26 19:25 BP 130 / 82; Pulse 86; Resp 18; Temp 98; Pulse Ox 96% on R/A; Weight 111.13 kg; Height al5 5 ft. 2 in. ; Pain 8/10; 20:31 BP 146 / 89; Pulse 72; Resp 16; Pulse Ox 97% on R/A; kd3 23:23 BP 158 / 98; Pulse 57; Resp 16; Pulse Ox 98% on R/A; kd3 19:25 Body Mass Index 44.81 (111.13 kg, 157.48 cm) al5 19:25 Pain Scale: Adult al5 [place] Coma Score: 02/27 22:16 Eye Response: spontaneous(4). Motor Response: obeys commands(6). Verbal Response: sp4 oriented(5). Total: 15. MDM: 04/20 19:15 Medical Screening Exam initiated sp4 02/27 22:20 Differential Diagnosis altered mental status, sepsis, flu. Data reviewed: vital signs, sp4 nurses notes, old medical records, lab test result(s). Consideration of Admission/Observation Patient was admitted/placed on observation. Escalation of care including admission/observation considered. Management of patient was discussed with the following: Hospitalist: Roberto OBRIEN . Operations Processor: Lyndsey OBRIEN . ED course: Patient was discussed with general surgeon who requested admission overnight for washout and debridement of left lower extremity in the morning.. 02/26 19:22 Order name: CBC with Diff sp4 02/26 19:22 Order name: CMP; Complete Time: 21:34 sp4 02/26 21:48 Order name: Manual Differential EDMS 02/26 23:18 Order name: CBC with Automated Diff EDMS 02/26 23:18 Order name: CBC with Automated Diff EDMS 02/26 23:18 Order name: Comprehensive Metabolic Panel EDMS 02/26 23:18 Order name: Comprehensive Metabolic Panel EDMS 02/27 09:44 Order name: Manual Differential EDMS 02/26 23:18 Order name: CONS Physician Consult EDMS 02/26 19:22 Order name: IV Saline Lock; Complete Time: 20:29 sp4 02/26 19:22 Order name: Labs collected and sent; Complete Time: 20:29 sp4 02/26 19:23 Order name: NPO: NPO after midnight; Complete Time: 20:29 sp4 Administered Medications: 02/26 20:50 Drug: Ondansetron IVP 4 mg IVP once; over 2 minutes Route: IVP; Site: left antecubital; kd3 20:50 Drug: morphine IVP or IV 4 mg IVP once over 4 mins Route: IVP; Infused Over: 4 mins; kd3 Site: left antecubital; 20:50 Drug: vancoMYCIN IVPB 1 grams IVPB once over 2 hrs Route: IVPB; Infused Over: 2 hrs; kd3 Site: left antecubital; 22:50 Follow up: IV Status: Completed infusion vc1 23:23 Drug: diphenhydrAMINE IVP 25 mg IVP once Route: IVP; Site: left antecubital; kd3 23:23 Drug: traZODONE PO 100 mg PO once Route: PO; kd3 Disposition: 02/27 22:22 Chart complete. sp4 Disposition Summary: 02/26/25 21:46 Hospitalization Ordered Notes: Hospitalization Status: Inpatient Admission sp4 Provider: Nirav Mejia Condition: Stable sp4 Problem: new sp4 Symptoms: have improved sp4 Bed/Room Type: Standard sp4 Location: Telemetry/MedSurg (Inpatient)(02/27/25 13:46) em1 Room Assignment: 425(02/27/25 13:46) em1 Diagnosis - Left lower extremity ulcerating lesion,, left lower extremity ulcer requiring sp4 debridement Forms: - Medication Reconciliation Form sp4 - SBAR form sp4 - Leadership Thank You Letter sp4 Signatures: Dispatcher [employer] EDMS Baudilio Frederick em1 Maite Walker RN RN kd3 Arlette Bauer RN RN vc1 Federico Boles MD MD sp4 Adriana Forrester RN RN al5 Corrections: (The following items were deleted from the chart) 02/26 19:23 19:22 CBC+H.LAB.BRZ ordered. EDMS EDMS 19:23 19:22 COMPREHENSIVE METABOLIC PANEL+C.LAB.BRZ ordered. EDMS EDMS 19:29 19:27 Home Meds: gabapentin oral; al5 al5 19:29 19:27 Home Meds: hydrocodone-acetaminophen 10-325 mg Oral tablet; al5 al5 19:29 19:27 Home Meds: Morphine Oral; al5 al5 22:45 21:46 Telemetry/MedSurg (Inpatient) sp4 vc1 22:45 21:46 sp4 vc1 02/27 13:46 02/26 22:45 [facility] ER HOLD vc1 em1 02/27 13:46 02/26 22:45 ERHOLD- vc1 em1
--- NOTE | 2025-02-26 21:47 | ER ---
Nurse's Notes [facility] Name: Abel Maria Age: 34 yrs Sex: Male : 1990 Arrival Date: 02/26/2025 Time: 18:58 Bed 27 Private MD: Diagnosis: Left lower extremity ulcerating lesion,, left lower extremity ulcer requiring debridement Presentation: 02/26 19:25 Chief complaint: Patient states: L lower leg pain, has a chronic wound that is al5 currently being treated by dr. rodriguez. sstates the wound is starting to open up more and is leaking per home health nurse. Coronavirus screen: At this time, the client does not indicate any symptoms associated with coronavirus-19. Ebola Screen: No symptoms or risks identified at this time. Initial Sepsis Screen: Does the patient meet any 2 criteria? No. Patient's initial sepsis screen is negative. Does the patient have a suspected source of infection? No. Patient's initial sepsis screen is negative. Risk Assessment: Do you want to hurt yourself or someone else? Patient reports no desire to harm self or others. Onset of symptoms was February 26, 2025. 19:25 Method Of Arrival: EMS: [facility] al5 19:25 Acuity: RICH 3 al5 Triage Assessment: 19:29 General: Appears in no apparent distress. comfortable, Behavior is calm, cooperative. al5 Pain: Complains of pain in left calf and medial aspect of left calf. EENT: No signs and/or symptoms were reported regarding the EENT system. Neuro: Level of Consciousness is awake, alert, obeys commands, Oriented to person, place, time, situation. Cardiovascular: Capillary refill < 3 seconds Patient's skin is warm and dry. Respiratory: Airway is patent Respiratory effort is even, unlabored, Respiratory pattern is regular, symmetrical. GI: No signs and/or symptoms were reported involving the gastrointestinal system. : No signs and/or symptoms were reported regarding the genitourinary system. Derm: wound wrapped with [place] bandage. Musculoskeletal: Reports pain in left calf and medial aspect of left calf. Historical: - Allergies: 19:27 Bactrim; al5 19:27 Dilaudid; al5 - PMHx: 19:27 agranulocytosis; Anemia; Cellulitis; Chronic leg wound; Left leg (2021); Chronic wound al5 to RLQ (July 2023); Congenital neutropenia; Congestive heart failure; depressive disorder; kidney disease; Sleep Apnea; - PSHx: 19:27 eye; leg; rectum; al5 - Immunization history:: Adult Immunizations up to date. - Infectious Disease History:: Denies. - Social history:: Smoking status: Patient denies any tobacco usage or history of. - Family history:: not pertinent. Screenin:30 [facility] ED Fall Risk Assessment (Adult) History of falling in the last 3 months, kd3 including since admission No falls in past 3 months (0 pts) Confusion or Disorientation No (0 pts) Intoxicated or Sedated No (0 pts) Impaired Gait No (0 pts) Mobility Assist Device Used No (0 pt) Altered Elimination No (0 pt) Score/Fall Risk Level 0 - 2 = Low Risk Oriented to surroundings. Abuse screen: Denies threats or abuse. Denies injuries from another. Nutritional screening: No deficits noted. Tuberculosis screening: No symptoms or risk factors identified. Assessment: 20:30 General: Appears in no apparent distress. Pain: Complains of pain in left leg and kd3 medial aspect of left calf. Neuro: Level of Consciousness is awake, alert, obeys commands, Oriented to person, place, time, situation. Cardiovascular: Patient's skin is warm and dry. Respiratory: Airway is patent Trachea midline Respiratory effort is even, unlabored, Respiratory pattern is regular, symmetrical. Vital Signs: 19:25 BP 130 / 82; Pulse 86; Resp 18; Temp 98; Pulse Ox 96% on R/A; Weight 111.13 kg; Height al5 5 ft. 2 in. ; Pain 8/10; 20:31 BP 146 / 89; Pulse 72; Resp 16; Pulse Ox 97% on R/A; kd3 23:23 BP 158 / 98; Pulse 57; Resp 16; Pulse Ox 98% on R/A; kd3 19:25 Body Mass Index 44.81 (111.13 kg, 157.48 cm) al5 19:25 Pain Scale: Adult al5 [place] Coma Score: 02/27 22:16 Eye Response: spontaneous(4). Motor Response: obeys commands(6). Verbal Response: sp4 oriented(5). Total: 15. ED Course: 02/26 19:07 Patient arrived in ED. vc1 19:10 Federico Boles MD is Attending Physician. sp4 19:24 Adriana Forrester, RN is Primary Nurse. al5 19:27 Triage completed. al5 19:31 Arm band placed on right wrist. Patient placed in the treatment room, in view of staff al5 members, on pulse oximetry. 19:57 Missed attempt(s): 22 gauge Bleeding controlled, band aid applied, catheter tip intact. oe 20:29 CMP Sent. kd3 20:29 CBC with Diff Sent. kd3 20:29 No provider procedures requiring assistance completed. Accessed peripheral vein via kd3 ultrasound, utilizing dynamic ultrasound technique using ,sterile technique, 20 G left A/c . 21:45 Nirav Mejia MD is Hospitalizing Provider. sp4 23:24 Patient has correct armband on for positive identification. Provided Education on: hold.kd3 23:24 Patient admitted, IV remains in place. kd3 02/27 07:08 Primary Nurse role handed off by Adriana Forrester, SONG bp 07:08 Rito Valadez, SONG is Primary Nurse. bp Administered Medications: 02/26 20:50 Drug: Ondansetron IVP 4 mg IVP once; over 2 minutes Route: IVP; Site: left antecubital; kd3 20:50 Drug: morphine IVP or IV 4 mg IVP once over 4 mins Route: IVP; Infused Over: 4 mins; kd3 Site: left antecubital; 20:50 Drug: vancoMYCIN IVPB 1 grams IVPB once over 2 hrs Route: IVPB; Infused Over: 2 hrs; kd3 Site: left antecubital; 22:50 Follow up: IV Status: Completed infusion vc1 23:23 Drug: diphenhydrAMINE IVP 25 mg IVP once Route: IVP; Site: left antecubital; kd3 23:23 Drug: traZODONE PO 100 mg PO once Route: PO; kd3 Medication: 20:30 VIS not applicable for this client. kd3 Outcome: 21:46 Decision to Hospitalize by Provider. sp4 23:24 Admitted to ER Hold. Please see [facility] for further documentation. kd3 23:24 Condition: stable 23:24 Discharge instructions given to patient, Instructed on the need for admit, 02/27 14:55 Patient left the ED. ap3 Signatures: Isrrael Jefferson Brian, RN RN bp Adriana Horne RN RN ap3 Maite Walker RN RN kd3 Arlette Bauer RN RN vc1 Federico Boles MD MD sp4 Adriana Forrester RN RN al5 Corrections: (The following items were deleted from the chart) 02/26 19: 19:27 Home Meds: gabapentin oral; al5 al5 19:27 Home Meds: hydrocodone-acetaminophen 10-325 mg Oral tablet; al5 al5 19: 19:27 Home Meds: Morphine Oral; al5 al5
[2025-02-26 21:48] LABS: Blood Morphology Comment NOT SEEN (NOT SEEN); Differential Total Cells Count 100; Eosinophils 6 % (0-3); Lymphocytes 41 % (15-42); Monocytes 18 % (0-10); Platelet Estimate ADEQ; Segmented Neutrophils 35 % (40-80)
[2025-02-26] MEDS ORDERED: DIPHENHYDRAMINE 50 MG/ML VIAL ONE (23:10)
[2025-02-26] MEDS ORDERED: ONDANSETRON 4 MG/2 ML VIAL IV PRN (23:13)
[2025-02-26] MEDS ORDERED: ACETAMINOPHEN 325 MG TABLET PO PRN (23:13)
[2025-02-26] MEDS: TRAZODONE 50 MG TABLET ONE (23:17)
--- NOTE | 2025-02-26 23:21 | P.HP ---
Certification for Inpatient Patient admitted to: Inpatient With expected LOS: >2 Midnights Practitioner: I am a practitioner with admitting privileges, knowledge of patient current condition, hospital course, and medical plan of care. Services: Services provided to patient in accordance with Admission requirements found in Title 42 Section 412.3 of the Code of Federal Regulations Patient History Date of Service: 02/27/25 Reason for admission: Left Leg Cellulitis History of Present Illness: 34 year old male with Pmhx congenital neutropenia, anemia, sleep apnea, left lower extremity wound who presents with worsening left lower extremity wound. Patient states that he has pain and swelling of left lower extremity and has associated with generalized weakness and chills. Denies any chest pain or shortness of breath. No upper respiratory/sinus symptoms. Denies any nausea vomiting or diarrhea. No sick contacts. Patient was assessed in the ER and was admitted for further management of chronic leg wound infection with failed outpatient management. Allergies doxycycline Allergy (Verified 10/28/24 16:18) Vomiting sulfamethoxazole [From Bactrim] Allergy (Verified 07/13/24 15:08) Itching trimethoprim [From Bactrim] Allergy (Verified 07/13/24 15:08) Itching Home medications list reviewed: Yes Home Medications: Naproxen 500 mg PO BID 09/02/24 methocarbamoL [Robaxin*] 750 mg PO BID 09/02/24 Spironolactone [Aldactone*] 25 mg PO DAILY 30 Days #30 tab 10/02/24 Collagenase [Santyl Ointment*] 1 appl TOP DAILY #2 tube 10/24/24 Doxycycline Hyclate 100 mg PO BID #20 cap 10/24/24 Morphine Ir [MSIR (Morphine Sulfate IR)*] 15 mg PO BID #14 tab 10/24/24 Mupirocin Calcium [Bactroban Nasal*] 1 appl DANIELLE BID #2 tube 10/24/24 levoFLOXacin [Levaquin] 750 mg PO DAILY #10 tab 10/24/24 - Past Medical/Surgical History Diabetic: No Past Medical History: Reviewed- Non-Contributory -: Neutropenia -: Anemia -: Non healing wounds on the abdominal wall and the LLE -: ALLISON -: CHF Past Surgical History: Reviewed- Non-Contributory -: Debridement of the wounds on the left leg -: 03/29/24 LEXISCAN INJECTED. CARDIOLITE INJECTED no ischemia Psychosocial/ Personal History: Pt lives in a trailer now moved to the [place] area [place] - Family History Mother Notes: Severe chronic acute Congenital neutropenia - Social History Smoking Status: Never smoker Alcohol use: No CD- Drugs: Yes Caffeine use: No Review of Systems 10-point ROS is otherwise unremarkable Other: Constitutional: Reports: generalized weakness. Skin: Denies: rash. Allergy/Immun: Denies: rhinorrhea, sneezing. Eyes: Denies: visual loss/blurred. ENT: Denies: earache, nasal congestion. Respiratory: Denies: non productive cough. Cardiovascular: Denies: chest pain, palpitations. GI: Denies: diarrhea, nausea. : Denies: dysuria. Musculoskeletal: Reports: arthritis. Denies: extremity pain. Heme: Denies: bleeding. Endocrine: Denies: polydipsia. Neuro: Reports: dizziness, gait problem, lightheaded, spinning sensation. Psych: Reports: anxiety. All systems rev & neg: except as noted Physical Examination - Vital Signs Temperature: 97.2 F Blood Pressure: 138/72 Pulse: 68 Respirations: 18 Pulse Ox (%): 94 - Physical Exam General: Alert, Oriented x3, Mild distress HEENT: Atraumatic, Normocephalic Neck: Supple Respiratory: Clear to auscultation bilaterally, Normal air movement Cardiovascular: Regular rate/rhythm, Normal S1 S2 Capillary refill: <2 Seconds Gastrointestinal: Soft and benign, W/out hepatosplenomegaly Musculoskeletal: No clubbing, Erythema, Tenderness, Warmth Integumentary: No rashes, Tenderness/swelling, Erythema Lymphatics: No axilla or inguinal lymphadenopathy - Studies Laboratory Data (last 24 hrs) 02/26/25 02/26/25 20:25 20:25 WBC 4.10 L Hgb 13.0 L Hct 39.4 L Plt Count 284 Sodium 137 Potassium 3.4 L BUN 14 Creatinine 1.09 Glucose 128 H Total Bilirubin 0.4 AST 15 ALT 25 Alkaline Phosphatase 62 Assessment and Plan - Plan Cellulitis/infection to chronic wound at LLE Follow blood culture -Dr Solorio consulted, -Wound dressing Started on Antibiotics Pain control Hypokalemia Will rep IV hydration Severe congenital neutropenia Continue Neupogen in AM Monitor closely CBC daily Obstructive sleep apnea CPAP at night GI/DVT prophylaxis consult Advanced directive full code Discharge Plan: Home Plan to discharge in: 48 Hours - Advance Directives Does patient have a Living Will: No Does patient have a Durable POA for Healthcare: No - Code Status/Comfort Care Code Status: Full Code Time Spent Managing Pts Care (In Minutes): 48
[2025-02-26] MEDS ORDERED: MORPHINE 2 MG/ML SYR ONE (23:58)
[2025-02-26] MEDS: MORPHINE 2 MG/ML SYR IV PRN (23:59)
[2025-02-27 00:22] VITALS: BMI 45.0
[2025-02-27] MEDS ORDERED: VANCOMYCIN 1 GM/VIAL ONE (00:43)
[2025-02-27] MEDS ORDERED: NA CHLORIDE 0.9% 250 ML ONE (00:43)
[2025-02-27] MEDS: VANCOMYCIN 1 GM in NA CHLORIDE 0.9% 250 ML IVPB ONE (00:50)
[2025-02-27] MEDS ORDERED: MORPHINE 2 MG/ML SYR ONE ×3 (03:55→12:03)
[2025-02-27 06:58] LABS: Absolute Basophils 0.1 K/uL (0-0.5); Absolute Eosinophils 0.3 K/uL (0-0.5); Absolute Lymphocytes (CBC) 1.3 K/uL (0.7-4.9); Absolute Monocytes 1.2 K/uL (0.1-1.3); Basophils % 2.9 % (0-1.3); Eosinophils % 8.5 % (0-4.4); Hematocrit 35.1 % (39.6-49.0); Hemoglobin 11.7 g/dL (13.6-17.9); Lymphocytes % 33.3 % (15.3-44.8); MCH 27.1 pg (27.0-35.0); MCHC 33.4 g/dL (32.0-36.0); MCV 81.3 fL (80-100); MPV 7.7 fL (7.6-11.3); Monocytes % 30.1 % (3.3-12.3); Neutrophils % 25.2 % (41.7-73.7); Nucleated Red Blood Cells % 0.2 % (0-0); Platelets 258 thou/uL (152-406); RBC Red Blood Cell Count 4.32 M/uL (4.33-5.43); Red Cell Distribution Width 18.9 % (12.1-15.2)
[2025-02-27 07:21] LABS: Albumin 2.7 g/dL (3.4-5.0); Albumin/Globulin Ratio 0.5 (1.1-1.8); Anion Gap 5.9 mEq/L (5.0-15.0); Bilirubin Total 0.3 mg/dL (0.2-1.0); Globulin 5.4 g/dL (2.3-3.5); Potassium 3.9 mEq/L (3.5-5.1); Protein, Total 8.1 g/dL (6.4-8.2)
[2025-02-27] MEDS ORDERED: HYDROCODONE/APAP 5/325 MG TAB ONE (08:13)
[2025-02-27] MEDS ORDERED: CEFEPIME 1 GM/VIAL ONE (08:13)
[2025-02-27] MEDS ORDERED: ENOXAPARIN 40 MG/0.4 ML SQ ONE (08:13)
[2025-02-27] MEDS ORDERED: NA CHLORIDE 0.9% 100 ML ONE (08:13)
[2025-02-27] MEDS: ENOXAPARIN 40 MG/0.4 ML SQ SCH (08:25)
[2025-02-27] MEDS: CEFEPIME 1 GM in NA CHLORIDE 0.9% 100 ML IV SCH (08:25)
[2025-02-27] MEDS: HYDROCODONE/APAP 5/325 MG TAB PO PRN (08:28)
[2025-02-27] MEDS: COLLAGENASE 30 GM OINTMENT TOP SCH (09:00)
[2025-02-27 09:43] LABS: Differential Total Cells Count 100; Eosinophils 5 % (0-3); Lymphocytes 36 % (15-42); Monocytes 28 % (0-10); Segmented Neutrophils 28 % (40-80)
[2025-02-27 09:44] LABS: Anisocytosis 1+; Blood Morphology Comment NOTED (NOT SEEN); Platelet Estimate ADEQ
--- NOTE | 2025-02-27 09:52 | P.PN ---
Subjective Date of Service: 02/27/25 Chief Complaint: Left Leg Cellulitis Subjective: No chest pain or shortness of breath. No nausea or vomiting. No abdominal pain. No obvious bleeding. Looks comfortable in the bed. Complaining of some pain in the left leg. Objective: General appearance: Alert and comfortable CVS: Normal S1 and S2 Lungs: Clear to auscultation bilaterally Abdomen: Soft, bowel sounds present, no tenderness Extremities: Left leg has circumferential wound in the mid calf area Physical Examination - Vital Signs Temperature: 98.5 F Blood Pressure: 122/66 Pulse: 70 Respirations: 18 Pulse Ox (%): 94 - Studies Laboratory Data (last 24 hrs) 02/26/25 02/26/25 20:25 20:25 WBC 4.10 L Hgb 13.0 L Hct 39.4 L Plt Count 284 Sodium 137 Potassium 3.4 L BUN 14 Creatinine 1.09 Glucose 128 H Total Bilirubin 0.4 AST 15 ALT 25 Alkaline Phosphatase 62 Assessment And Plan - Plan 1. Cellulitis/infection to chronic wound at [facility] -Follow blood culture -Dr Solorio consulted, -Wound dressing Started on Antibiotics -Pain control 2. Hypokalemia: replaced 3. Severe congenital neutropenia Monitor closely CBC daily 4. Obstructive sleep apnea CPAP at night 5. Chronic anemia: Monitor closely. Plan discussed with the patient and nursing staff, discussed with
[2025-02-27] MEDS: VANCOMYCIN 2 GM in NA CHLORIDE 0.9% 500 ML IVPB SCH (17:21)
[2025-02-27] MEDS: TRAZODONE 50 MG TABLET PO SCH (21:49)
[2025-02-28 06:29] LABS: Absolute Basophils 0.1 K/uL (0-0.5); Absolute Eosinophils 0.5 K/uL (0-0.5); Absolute Lymphocytes (CBC) 1.3 K/uL (0.7-4.9); Basophils % 2.5 % (0-1.3); Eosinophils % 12.6 % (0-4.4); Hematocrit 34.7 % (39.6-49.0); Hemoglobin 11.6 g/dL (13.6-17.9); Lymphocytes % 34.8 % (15.3-44.8); MCH 27.3 pg (27.0-35.0); MCHC 33.4 g/dL (32.0-36.0); MCV 81.5 fL (80-100); MPV 8.1 fL (7.6-11.3); Monocytes % 25.2 % (3.3-12.3); Neutrophils % 24.9 % (41.7-73.7); Platelets 199 thou/uL (152-406); RBC Red Blood Cell Count 4.26 M/uL (4.33-5.43); Red Cell Distribution Width 18.4 % (12.1-15.2)
[2025-02-28 06:41] LABS: Anion Gap 7.1 mEq/L (5.0-15.0); Magnesium 2.1 mg/dL (1.6-2.4); Phosphorus 4.7 mg/dL (2.5-4.9); Potassium 4.1 mEq/L (3.5-5.1)
--- NOTE | 2025-02-28 15:18 | P.PN ---
Subjective Date of Service: 02/28/25 Chief Complaint: Left Leg Cellulitis Subjective: No chest pain or shortness of breath. No nausea or vomiting. No abdominal pain. No obvious bleeding. Looks comfortable in the bed. Complaining of some pain in the left leg. Objective: General appearance: Alert and comfortable CVS: Normal S1 and S2 Lungs: Clear to auscultation bilaterally Abdomen: Soft, bowel sounds present, no tenderness Extremities: Left leg has dressing Physical Examination - Vital Signs Temperature: 98.1 F Blood Pressure: 132/90 Pulse: 96 Respirations: 18 Pulse Ox (%): 98 Assessment And Plan - Plan 1. Cellulitis/infection to chronic wound at [facility] -Follow blood culture -Dr Solorio consulted, -Wound dressing Started on Antibiotics -Pain control 2. Hypokalemia: replaced 3. Severe congenital neutropenia Monitor closely CBC daily 4. Obstructive sleep apnea CPAP at night 5. Chronic anemia: Monitor closely. Plan discussed with the patient and nursing staff, discussed with RONALDO Ugalde when cleared by dr. solorio
[2025-03-01 04:45] LABS: Absolute Basophils 0.1 K/uL (0-0.5); Absolute Eosinophils 0.8 K/uL (0-0.5); Absolute Lymphocytes (CBC) 1.5 K/uL (0.7-4.9); Absolute Neutrophil 0.7 K/uL (1.8-8.0); Basophils % 2.8 % (0-1.3); Eosinophils % 19.3 % (0-4.4); Hematocrit 33.6 % (39.6-49.0); Hemoglobin 11.2 g/dL (13.6-17.9); Lymphocytes % 37.3 % (15.3-44.8); MCHC 33.4 g/dL (32.0-36.0); MCV 80.8 fL (80-100); MPV 8.7 fL (7.6-11.3); Neutrophils % 17.7 % (41.7-73.7); Nucleated Red Blood Cells % 0.1 % (0-0); Platelets 187 thou/uL (152-406); RBC Red Blood Cell Count 4.15 M/uL (4.33-5.43); Red Cell Distribution Width 18.4 % (12.1-15.2)
[2025-03-01 04:51] LABS: Monocytes % 22.9 % (3.3-12.3)
[2025-03-01 05:00] LABS: Anion Gap 7.9 mEq/L (5.0-15.0); Potassium 3.9 mEq/L (3.5-5.1)
[2025-03-01] MEDS: TBO-FILGRASTIM 480 MCG/0.8 ML SYR SQ SCH (13:53)
--- NOTE | 2025-03-01 14:56 | P.PN ---
Subjective Date of Service: 03/01/25 Chief Complaint: Left Leg Cellulitis Subjective: No chest pain or shortness of breath. No nausea or vomiting. No abdominal pain. No obvious bleeding. Looks comfortable in the bed. Complaining of some pain in the left leg. Objective: General appearance: Alert and comfortable CVS: Normal S1 and S2 Lungs: Clear to auscultation bilaterally Abdomen: Soft, bowel sounds present, no tenderness Extremities: Left leg has dressing Physical Examination - Vital Signs Temperature: 97.8 F Blood Pressure: 154/89 Pulse: 80 Respirations: 18 Pulse Ox (%): 93 Assessment And Plan - Plan 1. Cellulitis/infection to chronic wound at [facility] -Follow blood culture -Dr Solorio consulted, -Wound dressing Started on Antibiotics -Pain control -plan to OR today for debridement 2. Hypokalemia: replaced 3. Severe congenital neutropenia Monitor closely CBC daily d/w oncology dr. tuttle, daily neupogen ordered 4. Obstructive sleep apnea CPAP at night 5. Chronic anemia: Monitor closely. Plan discussed with the patient and nursing staff, discussed with RONALDO Ugalde when cleared by dr. solorio
[2025-03-01] MEDS: NA CHLORIDE 0.9% 500 ML ONE (23:15)
[2025-03-01] MEDS: VANCOMYCIN 1 GM/VIAL ONE (23:15)
[2025-03-02] MEDS: MORPHINE 2 MG/ML SYR IV ONE (02:19)
[2025-03-02 04:58] LABS: Absolute Basophils 0.2 K/uL (0-0.5); Absolute Eosinophils 0.9 K/uL (0-0.5); Absolute Lymphocytes (CBC) 1.6 K/uL (0.7-4.9); Absolute Monocytes 1.5 K/uL (0.1-1.3); Absolute Neutrophil 1.6 K/uL (1.8-8.0); Basophils % 2.9 % (0-1.3); Eosinophils % 15.9 % (0-4.4); Hematocrit 32.8 % (39.6-49.0); Hemoglobin 11.2 g/dL (13.6-17.9); Lymphocytes % 27.8 % (15.3-44.8); MCHC 34.3 g/dL (32.0-36.0); MCV 81.5 fL (80-100); MPV 8.7 fL (7.6-11.3); Neutrophils % 27.9 % (41.7-73.7); Nucleated Red Blood Cells % 0.1 % (0-0); Platelets 185 thou/uL (152-406); RBC Red Blood Cell Count 4.02 M/uL (4.33-5.43); Red Cell Distribution Width 18.4 % (12.1-15.2)
[2025-03-02 05:05] LABS: Monocytes % 25.5 % (3.3-12.3)
[2025-03-02 05:16] LABS: Anion Gap 7.9 mEq/L (5.0-15.0); Potassium 3.9 mEq/L (3.5-5.1)
[2025-03-02] MEDS: POTASSIUM CL SA 10 MEQ TAB PO ONE (05:43)
[2025-03-02] MEDS: lisinopriL 10 MG TAB PO SCH (09:22)
[2025-03-02 09:42] VITALS: O2SAT 98
--- NOTE | 2025-03-02 10:46 | P.DS ---
Admission Date: 02/26/25 Discharge Date: 03/02/25 Disposition: DC HOME/HOME HEALTH CARE Discharge Condition: GOOD Reason for Admission: Left Leg Cellulitis Hospital Course: Discharge diagnosis: 1. Cellulitis/infection to chronic wound at [facility] -Dr Solorio consulted, recommending conservative management -Wound dressing -DC home on oral antibiotics 2. Hypokalemia: replaced 3. Severe congenital neutropenia Monitor closely CBC daily d/w oncology dr. tuttle on 02/28, daily neupogen ordered 4. Obstructive sleep apnea CPAP at night 5. Chronic anemia: Monitor closely. 6. HTN: Started on lisinopril, need to follow-up with PCP Hospital course: 34-year-old patient admitted with left lower extremity wound, surgical team was consulted, recommended conservative management with wound care and antibiotics, I discussed with Dr. Solorio this morning, he is recommending no surgical intervention at this time, continue oral antibiotics and wound care as an outpatient and follow-up in the in his clinic next week, when I see the patient today he is doing well without any acute problems, otherwise no other acute issues going on so I am planning to discharge him to go home. Subjective: No chest pain or shortness of breath. No nausea or vomiting. No abdominal pain. No obvious bleeding. Looks comfortable in the bed. Complaining of some pain in the left leg. Objective: General appearance: Alert and comfortable CVS: Normal S1 and S2 Lungs: Clear to auscultation bilaterally Abdomen: Soft, bowel sounds present, no tenderness Extremities: Left leg has dressing Vital Signs/Physical Exam: Temp Pulse Resp BP Pulse Ox 97.5 F 80 20 150/64 H 91 03/02/25 08:00 03/02/25 09:22 03/02/25 08:00 03/02/25 09:22 03/02/25 08:00 Laboratory Data at Discharge: WBC 5.70 thou/uL (4.3-10.9) 03/02/25 04:33 Hgb 11.2 g/dL (13.6-17.9) L 03/02/25 04:33 Hct 32.8 % (39.6-49.0) L 03/02/25 04:33 Plt Count 185 thou/uL (152-406) 03/02/25 04:33 Sodium 135 mEq/L (136-145) L 03/02/25 04:33 Potassium 3.9 mEq/L (3.5-5.1) 03/02/25 04:33 BUN 13 mg/dL (7-18) 03/02/25 04:33 Creatinine 1.06 mg/dL (0.70-1.30) 03/02/25 04:33 Glucose 191 mg/dL (74-106) H 03/02/25 04:33 Phosphorus 4.7 mg/dL (2.5-4.9) 02/28/25 06:14 Magnesium 2.1 mg/dL (1.6-2.4) 02/28/25 06:14 Total Bilirubin 0.3 mg/dL (0.2-1.0) 02/27/25 06:52 AST 12 U/L (15-37) L 02/27/25 06:52 ALT 19 U/L (16-61) 02/27/25 06:52 Alkaline Phosphatase 54 U/L (45-117) 02/27/25 06:52 Home Medications: methocarbamoL [Robaxin*] 750 mg PO BID 09/02/24 Hydrocodone 7.5/APAP 325 [[place] 7.5/325 mg*] 1 tab PO BID PRN 02/27/25 Morphine Ir [MSIR (Morphine Sulfate IR)*] 15 mg PO BID PRN 02/27/25 Trazodone HCl 100 mg PO BEDTIME PRN 02/27/25 Amox/Clavulanate [Augmentin 875-125 Tab] 875 mg PO BID #10 tab 03/02/25 Collagenase [Santyl Ointment*] 1 appl TOP DAILY 7 Days #1 tube 03/02/25 lisinopriL [Prinivil*] 10 mg PO DAILY #30 tab 03/02/25 New Medications: Amox/Clavulanate [Augmentin 875-125 Tab] 875 mg PO BID #10 tab lisinopriL [Prinivil*] 10 mg PO DAILY #30 tab Collagenase [Santyl Ointment*] 1 appl TOP DAILY 7 Days #1 tube Followup: Clyde Solorio MD [ACTIVE - CAN ADMIT] - 1-2 Weeks Elgin Tuttle MD [ACTIVE - CAN ADMIT] - 1 Week (f/u with oncology for neupogen injections. CBC and CMP in 1 week and f/u with pcp) Time spent managing pt's care (in minutes): 32
[2025-03-02 12:55] VITALS: BP 136/85; TEMP 97.9
== END 2025-03-02 14:35 | disposition home health service (06) | DRG 603 ==
LOC: ER 18:58 → ERHOLD 23:13 → 4TH 02-27 13:54
PROVIDERS: ADMIT Family Medicine; ATTEND Hospitalist
DX: L03.116 Cellulitis of left lower limb (principal); L97.929 Non-pressure chronic ulcer of unspecified part of left lower leg with unspecified severity; E11.622 Type 2 diabetes mellitus with other skin ulcer; E87.6 Hypokalemia; D70.0 Congenital agranulocytosis; G47.33 Obstructive sleep apnea (adult) (pediatric); D64.9 Anemia, unspecified; Z88.1 Allergy status to other antibiotic agents; Z79.899 Other long term (current) drug therapy
CPT/HCPCS: 36415; 80048; 80053; 80202; 83735; 84100; 85025; 96365; 96366; 96372; 96375; 99285; J0692; J1200; J1447; J1650; J2270; J2405; J3370; J3590; J7040; J7050; Q5125

== ENCOUNTER 2025-03-12 02:32 | Inpatient (IN) | payer OTHER, MEDICAID ==
[2025-03-12] MEDS ORDERED: VANCOMYCIN 1 GM/VIAL ONE (03:50)
[2025-03-12] MEDS ORDERED: NA CHLORIDE 0.9% 250 ML ONE (03:50)
[2025-03-12] MEDS ORDERED: MORPHINE 4 MG/ML SYR ONE ×2 (03:50→06:18)
[2025-03-12] MEDS ORDERED: ONDANSETRON 4 MG/2 ML VIAL ONE (03:50)
[2025-03-12] MEDS ORDERED: ACETAMINOPHEN 500 MG TAB ONE (04:25)
[2025-03-12] MEDS ORDERED: NA CHLORIDE 0.9% 1,000 ML ONE (04:25)
[2025-03-12 04:41] LABS: Absolute Basophils 0.1 K/uL (0-0.5); Absolute Eosinophils 0.2 K/uL (0-0.5); Absolute Lymphocytes (CBC) 0.6 K/uL (0.7-4.9); Absolute Monocytes 1.2 K/uL (0.1-1.3); Absolute Neutrophil 0.1 K/uL (1.8-8.0); Basophils % 4.8 % (0-1.3); Eosinophils % 10.2 % (0-4.4); Hematocrit 32.1 % (39.6-49.0); Hemoglobin 10.9 g/dL (13.6-17.9); Lymphocytes % 25.5 % (15.3-44.8); MCH 27.7 pg (27.0-35.0); MCV 81.6 fL (80-100); MPV 8.2 fL (7.6-11.3); Monocytes % 54.2 % (3.3-12.3); Neutrophils % 5.3 % (41.7-73.7); Nucleated Red Blood Cells % 0.1 % (0-0); Platelets 267 thou/uL (152-406); RBC Red Blood Cell Count 3.93 M/uL (4.33-5.43); Red Cell Distribution Width 17.5 % (12.1-15.2)
--- NOTE | 2025-03-12 04:43 | RAD REPORT ---
XR FOOT 1-2 VIEWS LEFT INDICATION: Pain COMPARISON: None TECHNIQUE: 2 views of the left foot FINDINGS: BONES: Diffuse osteopenia. No acute fracture or malalignment. No cortical erosion or periosteal popeye ction. SOFT TISSUE: Diffuse soft tissue swelling. OTHER: None. IMPRESSION: No acute bony abnormality. Electronically signed by: Tracey Gonzalez MD 03/12/2025 04:39 AM CDT Due to temporary technical issues with the PACS/[employer] reporting system, reports are being rufino d by the in-house radiologist without review as a courtesy to ensure prompt reporting the interpreting radiologist is fully responsible for the content of the report. Transcribed Date/Time: 03/12/2025 4:42 AM
[2025-03-12 04:44] LABS: PT Prothrombin Time 15.1 SECONDS (10-13.0); PTT, Activated Partial Thromb 29.3 SECONDS (27.2-37.4); Protime INR 1.34
[2025-03-12 04:53] LABS: Albumin 2.7 g/dL (3.4-5.0); Albumin/Globulin Ratio 0.5 (1.1-1.8); Anion Gap 10.4 mEq/L (5.0-15.0); Bilirubin Total 0.9 mg/dL (0.2-1.0); Globulin 5.7 g/dL (2.3-3.5); Protein, Total 8.4 g/dL (6.4-8.2)
[2025-03-12 04:56] LABS: Potassium 4.4 mEq/L (3.5-5.1)
--- NOTE | 2025-03-12 06:30 | EDPHYS ---
Physician Documentation [facility] Name: Abel Maria Age: 34 yrs Sex: Male : 1990 Arrival Date: 03/12/2025 Time: 02:32 Bed 6 Private MD: ED Physician Aric Puente HPI: 03/12 05:47 This 34 yrs old Male presents to ER via EMS with complaints of Wound Infection. rt 05:47 Patient with reported neutropenia since as well as wounds to the left leg rt presents today with fever, chills, worsening pain to the left leg. Denies discrete injury, acute complaints, symptoms are moderate in severity, no aggravating or alleviating factors.. 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 - Infectious Disease History:: MRSA (w/in 1 year), . - Social history:: Smoking status: Patient denies any tobacco usage or history of. Patient/guardian denies using alcohol, street drugs. - Family history:: not pertinent. ROS: 05:47 Cardiovascular: Negative for chest pain, palpitations, and edema, Respiratory: Negative rt for shortness of breath, cough, wheezing, and pleuritic chest pain, Abdomen/GI: Negative for abdominal pain, nausea, vomiting, diarrhea, and constipation, Neuro: Negative for headache, weakness, numbness, tingling, and seizure, 05:47 Constitutional: Positive for chills, fever, 05:47 MS/extremity: Positive for Wound, pain, Exam: 05:47 Constitutional: This is a well developed, well nourished patient who is awake, alert, rt and in no acute distress. Head/Face: Normocephalic, atraumatic. Chest/axilla: Normal chest wall appearance and motion. Nontender with no deformity. No lesions are appreciated. Cardiovascular: Regular rate and rhythm with a normal S1 and S2. No gallops, murmurs, or rubs. Normal PMI, no JVD. No pulse deficits. Respiratory: Lungs have equal breath sounds bilaterally, clear to auscultation and percussion. No rales, rhonchi or wheezes noted. No increased work of breathing, no retractions or nasal flaring. Abdomen/GI: Soft, non-tender, with normal bowel sounds. No distension or tympany. No guarding or rebound. No evidence of tenderness throughout. Neuro: Awake and alert, GCS 15, oriented to person, place, time, and situation. Cranial nerves II-XII grossly intact. Motor strength 5/5 in all extremities. Sensory grossly intact. Cerebellar exam normal. Normal gait. 05:47 ECG was reviewed by the Attending Physician. 05:47 Musculoskeletal/extremity: Chronic. Wounds to left foot, slight malodorous, pulses, motor, sensation are intact. Vital Signs: 02:27 BP 125 / 44; Pulse 110; Resp 24; Temp 100.7(O); Pulse Ox 99% on R/A; Weight 110.68 kg; br2 Height 5 ft. 2 in. ; Pain 10/10; 03:00 BP 104 / 71; Pulse 112; Resp 18; Pulse Ox 97% ; vc1 04:21 BP 93 / 53; Pulse 107; Resp 18; Pulse Ox 98% ; vc1 05:56 BP 128 / 60; Pulse 92; Resp 18; Temp 98.3; Pulse Ox 98% ; vc1 06:32 BP 113 / 53; Pulse 83; Resp 18; Pulse Ox 98% ; vc1 07:33 BP 128 / 53; Pulse 78; Resp 16; Pulse Ox 98% ; ss 10:15 BP 116 / 59; Pulse 69; Resp 15; Pulse Ox 99% on R/A; cm10 02:27 Body Mass Index 44.63 (110.68 kg, 157.48 cm) br2 02:27 Pain Scale: Adult br2 MDM: 02:57 Medical Screening Exam initiated rt 06:20 Differential diagnosis:. rt 06:25 Differential diagnosis: Cellulitis, sepsis. Data reviewed: vital signs, nurses notes. rt Consideration of Admission/Observation Patient was admitted/placed on observation. Management of patient was discussed with the following: Hospitalist: Agrees to. I considered the following discharge prescriptions or medication management in the emergency department Medications were administered in the Emergency Department. See MAR. Independent interpretation of the following test(s) in the Emergency Department X-Ray: My interpretation is No fracture seen on interpretation of x-ray images. Care significantly affected by the following chronic conditions: Neutropenia. Counseling: I had a detailed discussion with the patient and/or guardian regarding the historical points, exam findings, and any diagnostic results supporting the discharge/admit diagnosis, lab results, radiology results, the need for further work-up and treatment in the hospital. Response to treatment: There is no appreciated change of the patient's symptoms at this time. 03/12 03:02 Order name: Blood Culture Adult (2) rt 03/12 03:02 Order name: CBC with Diff rt 03/12 03:02 Order name: CMP; Complete Time: 05:31 rt 03/12 03:02 Order name: Lactate w/ 2H reflex if indic.; Complete Time: 05:31 rt 03/12 03:02 Order name: Protime (+inr); Complete Time: 04:49 rt 03/12 03:02 Order name: Ptt, Activated; Complete Time: 04:49 rt 03/12 04:33 Order name: Glucose, Ancillary Testing; Complete Time: 04:49 EDMS 03/12 04:48 Order name: Manual Differential EDMS / 08:29 Order name: Basic Metabolic Panel EDMS 05/04 08:29 Order name: Basic Metabolic Panel EDMS 05/04 08:29 Order name: Basic Metabolic Panel EDMS 05/ 08:29 Order name: Basic Metabolic Panel EDMS 05/ 08:29 Order name: Basic Metabolic Panel EDMS 05/04 08:29 Order name: Basic Metabolic Panel EDMS 05/04 08:29 Order name: Basic Metabolic Panel EDMS 05/04 08:29 Order name: CBC with Automated Diff EDMS 05/04 08:29 Order name: CBC with Automated Diff EDMS 05/04 08:29 Order name: CBC with Automated Diff EDMS 05/04 08:29 Order name: CBC with Automated Diff EDMS 05/04 08:29 Order name: CBC with Automated Diff EDMS 05/04 08:29 Order name: CBC with Automated Diff EDMS 05/04 08:29 Order name: CBC with Automated Diff EDMS 05/04 03:36 Order name: Foot Left 2 View EDMS 05/04 08:29 Order name: Physical Therapy Consult [facility] 03/12 08:29 Order name: Physical Therapy Consult [facility] 03/12 03:02 Order name: Accucheck; Complete Time: 04:21 rt 03/12 03:02 Order name: Cardiac monitoring; Complete Time: 04:16 rt 03/12 03:02 Order name: EKG - Nurse/Tech; Complete Time: 04:34 rt 03/12 03:02 Order name: IV Saline Lock - Large Bore; Complete Time: 04:16 rt 03/12 03:02 Order name: Labs collected and sent; Complete Time: 04:16 rt 03/12 03:02 Order name: O2 Per Protocol; Complete Time: 04:16 rt 03/12 03:02 Order name: O2 Sat Monitoring; Complete Time: 04:16 rt 03/12 03:02 Order name: Vital Signs; Complete Time: 04:16 rt Administered Medications: 04:16 Drug: Ondansetron IVP 4 mg IVP once; over 2 minutes Route: IVP; Site: right forearm; ha1 05:58 Follow up: Response: No adverse reaction vc1 04:18 Drug: morphine IVP or IV 4 mg IVP once over 4 mins Route: IVP; Infused Over: 4 mins; ha1 Site: right forearm; 05:58 Follow up: Response: No adverse reaction; Marked relief of symptoms; Pain is decreased vc1 04:20 Drug: vancoMYCIN IVPB 1 grams IVPB once over 2 hrs Route: IVPB; Infused Over: 2 hrs; ha1 Site: right forearm; 05:51 Follow up: Response: No adverse reaction; IV Status: Completed infusion ha1 04:31 Drug: Acetaminophen PO 1000 mg PO once Route: PO; vc1 05:58 Follow up: Response: No adverse reaction; Temperature is decreased vc1 04:31 Drug: NS 0.9% IV 1000 ml IV at 1 bolus Per protocol; to be given as a bolus over 60 vc1 minutes Route: IV; Rate: 1 bolus; Site: right antecubital; 05:58 Follow up: IV Status: Completed infusion; IV Intake: 1000ml vc1 06:25 Drug: morphine IVP or IV 4 mg IVP once over 4 mins Route: IVP; Infused Over: 4 mins; vc1 Site: right forearm; 06:32 Follow up: Response: No adverse reaction vc1 Disposition Summary: 03/12/25 06:29 Hospitalization Ordered Notes: Hospitalization Status: Inpatient Admission rt Provider: Apollo Ribeiro rt Location: Telemetry/MedSurg (Inpatient) rt Condition: Fair rt Problem: an ongoing problem rt Symptoms: are unchanged rt Bed/Room Type: Standard rt Room Assignment: 407(03/12/25 10:15) em1 Diagnosis - Cellulitis to left lower extremity rt - Sepsis rt - Neutropenia rt Forms: - Medication Reconciliation Form rt - SBAR form rt - Leadership Thank You Letter rt Critical care time excluding procedures: 06:25 Critical care time: Bedside Care: 30 minutes, Consultation: 5 minutes. Total time: 35 rt minutes Signatures: Dispatcher [employer] EDMS Baudilio Frederick em1 Arlette Bauer, RN RN vc1 Kat Barrow RN RN ha1 Aric Puente MD MD rt Shellie Saucedo RN RN br2 Corrections: (The following items were deleted from the chart) 03:03 03:03 BLOOD CULTURE*+BA.LAB.BRZ ordered. EDMS EDMS 03:03 03:03 CBC+H.LAB.BRZ ordered. EDMS EDMS 03:03 03:03 COMPREHENSIVE METABOLIC PANEL+C.LAB.BRZ ordered. EDMS EDMS 03:03 03:03 LACTATE+C.LAB.BRZ ordered. EDMS EDMS 03:03 03:03 PROTIME (+INR)+COAG.LAB.BRZ ordered. EDMS EDMS 03:03 03:03 PTT, ACTIVATED+COAG.LAB.BRZ ordered. EDMS EDMS 03:03 03:03 Foot Left 3 View+RAD.RAD.BRZ ordered. EDMS EDMS 10:15 06:29 rt em1
--- NOTE | 2025-03-12 06:30 | ER ---
Nurse's Notes [facility] Name: Abel Maria Age: 34 yrs Sex: Male : 1990 Arrival Date: 03/12/2025 Time: 02:32 Bed 6 Private MD: Diagnosis: Cellulitis to left lower extremity;Sepsis;Neutropenia Presentation: 03/12 02:27 Chief complaint: Patient states: C/O PAIN TO LEFT FOOT. PT HAS A CHRONIC FOOT INFECTION br2 (MRSA) THAT HAS BEEN TAKEN CARE OF BY [facility]. PT C/O INCREASED PAIN AND FEVER 100.7. PT ARRIVES TO ER WITH DRESSING TO LEFT GREAT TOE THAT IS DRY AND INTACT. PT;S LEFT 3RD TOE, PURPLE DISCOLORATION. Coronavirus screen: Client denies travel out of the [place] in the last 14 days. Ebola Screen: Patient denies exposure to infectious person. Initial Sepsis Screen: Does the patient meet any 2 criteria? No. Patient's initial sepsis screen is negative. Does the patient have a suspected source of infection? No. Patient's initial sepsis screen is negative. Risk Assessment: Do you want to hurt yourself or someone else? Patient reports no desire to harm self or others. Onset of symptoms is unknown. 02:27 Method Of Arrival: EMS: [facility] br2 02:27 Acuity: RICH 3 br2 Triage Assessment: 02:51 General: Appears uncomfortable, obese, Behavior is anxious, restless. Pain: Complains br2 of pain in plantar aspect of left first toe, plantar aspect of left second toe, left third toe and Left first toenail. 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 - Infectious Disease History:: MRSA (w/in 1 year), . - Social history:: Smoking status: Patient denies any tobacco usage or history of. Patient/guardian denies using alcohol, street drugs. - Family history:: not pertinent. Screenin:35 [facility] ED Fall Risk Assessment (Adult) History of falling in the last 3 months, vc1 including since admission No falls in past 3 months (0 pts) Confusion or Disorientation No (0 pts) Intoxicated or Sedated No (0 pts) Impaired Gait Yes (1 pt) Mobility Assist Device Used Yes (1 pt) Altered Elimination No (0 pt) Score/Fall Risk Level 0 - 2 = Low Risk Oriented to surroundings, Maintained a safe environment, Educated pt \T\ family on fall prevention, incl call for assistance when getting out of bed, Assessed \T\ reinforced patient's understanding of fall precautions, Provided non-skid footwear, Hourly rounding (assess needs \T\ fall precautionary measures) done. Abuse screen: Denies threats or abuse. Nutritional screening: No deficits noted. Tuberculosis screening: No symptoms or risk factors identified. Assessment: 02:34 General: Appears in no apparent distress. uncomfortable, obese, unkempt, Behavior is vc1 anxious, crying. Pain: Complains of pain in abdomen and left leg and left third toe and plantar aspect of left first toe Pain does not radiate. Pain currently is 10 out of 10 on a pain scale. Neuro: Level of Consciousness is awake, alert, obeys commands, Oriented to person, place, time, situation, Appropriate for age. Cardiovascular: Heart tones S1 S2 present Rhythm is sinus tachycardia. Respiratory: Airway is patent Respiratory effort is even, unlabored, Respiratory pattern is regular, symmetrical, Breath sounds are clear bilaterally. GI: Abdomen is round obese. : No deficits noted. No signs and/or symptoms were reported regarding the genitourinary system. EENT: No deficits noted. No signs and/or symptoms were reported regarding the EENT system. Derm: Skin has blisters on blood blister on left first toe Skin temperature is hot Wound noted left third toe and plantar aspect of left second toe and plantar aspect of left first toe, left lateral lower leg, abdomen Reports itching, pain. Musculoskeletal: Range of motion: intact in all extremities. 02:45 Reassessment: Patient and/or family updated on plan of care and expected duration. Pain ha1 level reassessed. PROVIDED CLEAN LINENS. 03:40 Reassessment: Patient and/or family updated on plan of care and expected duration. Pain ha1 level reassessed. 04:14 Reassessment: Patient appears in no apparent distress at this time. No changes from vc1 previously documented assessment. Patient and/or family updated on plan of care and expected duration. Pain level reassessed. Patient is alert, oriented x 3, equal unlabored respirations, skin warm/dry/pink. 05:56 Reassessment: Patient appears in no apparent distress at this time. No changes from vc1 previously documented assessment. Patient and/or family updated on plan of care and expected duration. Pain level reassessed. Patient is alert, oriented x 3, equal unlabored respirations, skin warm/dry/pink. 06:32 Reassessment: Patient appears in no apparent distress at this time. Patient and/or vc1 family updated on plan of care and expected duration. Pain level reassessed. Patient is alert, oriented x 3, equal unlabored respirations, skin warm/dry/pink. Patient states symptoms have improved. 07:33 General: Appears in no apparent distress. comfortable, Behavior is calm, cooperative. ss Neuro: Level of Consciousness is awake, alert, obeys commands, Oriented to person, place, time, situation. Respiratory: Airway is patent Respiratory effort is even, unlabored, Respiratory pattern is regular, symmetrical. GI: Patient currently denies abdominal pain, nausea. Derm: Skin is pink, warm \T\ dry. normal, chronic wound noted to L lower leg. Awaiting for hospitalist to evaluate patient. Will dress wound after hospitalist evaluated. Pt verbalizes understanding. 08:14 Reassessment: wound care performed to L lower leg and R lower abd. Redness/ irritation ss noted under R side of pannus. Pt reports that has been ongoing for some time. Pt noted to be scratching and making wound ooze blood. Educted patient that scratching may lead to infection/ further injury. Pt verbalizes understanding. 10:15 Reassessment: Patient appears in no apparent distress at this time. Patient and/or cm10 family updated on plan of care and expected duration. Pain level reassessed. Patient is alert, oriented x 3, equal unlabored respirations, skin warm/dry/pink. Vital Signs: 02:27 BP 125 / 44; Pulse 110; Resp 24; Temp 100.7(O); Pulse Ox 99% on R/A; Weight 110.68 kg; br2 Height 5 ft. 2 in. ; Pain 10/10; 03:00 BP 104 / 71; Pulse 112; Resp 18; Pulse Ox 97% ; vc1 04:21 BP 93 / 53; Pulse 107; Resp 18; Pulse Ox 98% ; vc1 05:56 BP 128 / 60; Pulse 92; Resp 18; Temp 98.3; Pulse Ox 98% ; vc1 06:32 BP 113 / 53; Pulse 83; Resp 18; Pulse Ox 98% ; vc1 07:33 BP 128 / 53; Pulse 78; Resp 16; Pulse Ox 98% ; ss 10:15 BP 116 / 59; Pulse 69; Resp 15; Pulse Ox 99% on R/A; cm10 02:27 Body Mass Index 44.63 (110.68 kg, 157.48 cm) br2 02:27 Pain Scale: Adult br2 ED Course: 02:34 Patient arrived in ED. kmf 02:34 Aric Puente MD is Attending Physician. rt 02:45 Arm band placed on right wrist. vc1 02:45 Patient has correct armband on for positive identification. Bed in low position. Call vc1 light in reach. Provided Education on: plan of care. set and exhibit designer on. Pulse ox on. NIBP on. 02:50 Triage completed. br2 03:36 Foot Left 2 View In Process Unspecified. EDMS 04:14 Inserted saline lock: 20 gauge in right forearm, using aseptic technique. Blood ha1 collected. Flushed with 10 mL NS Accessed peripheral vein via ultrasound, utilizing dynamic ultrasound technique Blood collected. Good blood return. Flushes easily. 04:54 EKG done, by ED staff, reviewed by Aric Puente MD. sa1 06:29 Apollo Ribeiro is Hospitalizing Provider. rt 07:33 Inés Tapia, SONG is Primary Nurse. ss 07:33 No provider procedures requiring assistance completed. Patient admitted, IV remains in ss place. Administered Medications: 04:16 Drug: Ondansetron IVP 4 mg IVP once; over 2 minutes Route: IVP; Site: right forearm; ha1 05:58 Follow up: Response: No adverse reaction vc1 04:18 Drug: morphine IVP or IV 4 mg IVP once over 4 mins Route: IVP; Infused Over: 4 mins; ha1 Site: right forearm; 05:58 Follow up: Response: No adverse reaction; Marked relief of symptoms; Pain is decreased vc1 04:20 Drug: vancoMYCIN IVPB 1 grams IVPB once over 2 hrs Route: IVPB; Infused Over: 2 hrs; ha1 Site: right forearm; 05:51 Follow up: Response: No adverse reaction; IV Status: Completed infusion ha1 04:31 Drug: Acetaminophen PO 1000 mg PO once Route: PO; vc1 05:58 Follow up: Response: No adverse reaction; Temperature is decreased vc1 04:31 Drug: NS 0.9% IV 1000 ml IV at 1 bolus Per protocol; to be given as a bolus over 60 vc1 minutes Route: IV; Rate: 1 bolus; Site: right antecubital; 05:58 Follow up: IV Status: Completed infusion; IV Intake: 1000ml vc1 06:25 Drug: morphine IVP or IV 4 mg IVP once over 4 mins Route: IVP; Infused Over: 4 mins; vc1 Site: right forearm; 06:32 Follow up: Response: No adverse reaction vc1 Medication: 04:15 VIS not applicable for this client. vc1 Intake: 05:58 IV: 1000ml; Total: 1000ml. vc1 Outcome: 06:29 Decision to Hospitalize by Provider. rt 10:56 Admitted to Tele accompanied by tech, via stretcher, room 407, cm10 10:56 Condition: good 10:56 Instructed on the need for admit, 10:56 Patient left the ED. cm10 Signatures: Dispatcher [employer] EDMS Inés Tapia RN RN ss Calcote, Vanessa RN RN vc1 Kat Barrow RN RN ha1 Aric Puente MD MD rt Greer Frederick RN RN cm10 Viky Mcmillan [facility] Shellie Saucedo RN RN br2 Corrections: (The following items were deleted from the chart) 02:54 02:27 Chief complaint: Patient states: C/O PAIN TO LEFT FOOT. PT HAS A CHRONIC FOOT br2 INFECTION (MRSA) THAT HAS BEEN TAKEN CARE OF BY [facility]. PT C/O INCREASED PAIN AND FEVER 100.7 br2
[2025-03-12 06:42] LABS: Atypical Lymphocytes 5 %; Blood Morphology Comment NOT SEEN (NOT SEEN); Differential Total Cells Count 100; Eosinophils 10 % (0-3); Lymphocytes 22 % (15-42); Monocytes 55 % (0-10); Platelet Estimate ADEQ; Segmented Neutrophils 5 % (40-80)
[2025-03-12] MEDS ORDERED: ACETAMINOPHEN 325 MG TABLET PO PRN (08:22)
[2025-03-12] MEDS ORDERED: ONDANSETRON 4 MG/2 ML VIAL IV PRN (08:22)
[2025-03-12] MEDS ORDERED: HYDROCODONE/APAP 10/325 TAB ONE (08:51)
[2025-03-12] MEDS: HYDROCODONE/APAP 10/325 TAB PO PRN (08:59)
[2025-03-12] MEDS: CEFEPIME 2 GM in NA CHLORIDE 0.9% 100 ML IV SCH ×2 (09:00→12:14)
[2025-03-12] MEDS: ENOXAPARIN 40 MG/0.4 ML SQ SCH ×2 (09:00→12:13)
--- NOTE | 2025-03-12 10:15 | P.HP ---
Certification for Inpatient Patient admitted to: Inpatient With expected LOS: >2 Midnights Patient will require the following post-hospital care: None Practitioner: I am a practitioner with admitting privileges, knowledge of patient current condition, hospital course, and medical plan of care. Services: Services provided to patient in accordance with Admission requirements found in Title 42 Section 412.3 of the Code of Federal Regulations Patient History Date of Service: 03/12/25 Reason for admission: Fever, neutropenia History of Present Illness: 34-year-old male with history of congenital neutropenia, chronic wounds of left lower extremity presents the emergency department chief complaint of fevers, left lower extremity pain. He reports checking his temperature at home with an oral thermometer with a Tmax of 102 last night. He was recently hospitalized from 02/26 to 03/02 and discharged on oral antibiotics. Did not undergo any surgical intervention at that time/debridement. Patient was evaluated today in the emergency department his white blood cell count was 2.3 absolute neutrophils 0.1 he had a low-grade temperature creatinine is 1.76 sodium is 133, he has a large open wound to his left lower extremity with some mild erythema surrounding as well as some erythema to the toes on his left foot. Given his fevers, neutropenia and increasing pain ED provider wishes to admit for further evaluation and management. Allergies doxycycline Allergy (Verified 10/28/24 16:18) Vomiting sulfamethoxazole [From Bactrim] Allergy (Verified 07/13/24 15:08) Itching trimethoprim [From Bactrim] Allergy (Verified 07/13/24 15:08) Itching Home Medications: methocarbamoL [Robaxin*] 750 mg PO BID 09/02/24 Hydrocodone 7.5/APAP 325 [[place] 7.5/325 mg*] 1 tab PO BID PRN 02/27/25 Morphine Ir [MSIR (Morphine Sulfate IR)*] 15 mg PO BID PRN 02/27/25 Trazodone HCl 100 mg PO BEDTIME PRN 02/27/25 Amox/Clavulanate [Augmentin 875-125 Tab] 875 mg PO BID #10 tab 03/02/25 Collagenase [Santyl Ointment*] 1 appl TOP DAILY 7 Days #1 tube 03/02/25 lisinopriL [Prinivil*] 10 mg PO DAILY #30 tab 03/02/25 - Past Medical/Surgical History Diabetic: No -: Neutropenia -: Anemia -: Non healing wounds on the abdominal wall and the LLE -: ALLISON -: CHF -: Debridement of the wounds on the left leg -: 03/29/24 LEXISCAN INJECTED. CARDIOLITE INJECTED no ischemia Psychosocial/ Personal History: Pt lives in a trailer now [place] the [place] area [place] - Family History Mother Notes: Severe chronic acute Congenital neutropenia - Social History Alcohol use: No CD- Drugs: Yes Caffeine use: No Place of Residence: Home Review of Systems 10-point ROS is otherwise unremarkable Musculoskeletal: Leg Pain Integumentary: As per HPI Physical Examination - Vital Signs Respirations: 19 Pulse Ox (%): 98 - Physical Exam General: Alert, In no apparent distress, Oriented x3 HEENT: Atraumatic, PERRLA Neck: Supple, 2+ carotid pulse no bruit, No LAD Respiratory: Clear to auscultation bilaterally, Normal air movement Cardiovascular: Regular rate/rhythm, Normal S1 S2 Gastrointestinal: Normal bowel sounds, No tenderness Musculoskeletal: No tenderness Integumentary: Other (Large open wound to left lower extremity, wound to right lower quadrant abdomen) Neurological: Normal speech, Normal strength at 5/5 x4 extr, Normal affect - Studies Laboratory Data (last 24 hrs) 03/12/25 03/12/25 03/12/25 04:20 04:20 04:20 WBC 2.30 L Hgb 10.9 L Hct 32.1 L Plt Count 267 PT 15.1 H INR 1.34 APTT 29.3 Sodium 133 L Potassium 4.4 BUN 22 H Creatinine 1.76 H Glucose 131 H Total Bilirubin 0.9 AST 22 ALT 18 Alkaline Phosphatase 49 Assessment and Plan - Plan Assessment: Fevers, chronic left lower extremity wound and chronic right lower quadrant abdominal wound Congenital neutropenia Plan: Fevers, chronic left lower extremity wound and chronic right lower quadrant abdominal wound Multiple hospitalizations for similar Blood cultures obtained, will follow General SurgeryDr. Solorio consulted Broad-spectrum antibiotics with vancomycin/cefepime, high risk for infection Await input from general surgery Congenital neutropenia Daily Neupogen Monitor CBC daily DVT PPX: Lovenox Code status: Full Discharge Plan: Home Plan to discharge in: 48 Hours - Advance Directives Does patient have a Living Will: Yes Does patient have a Durable POA for Healthcare: No - Code Status/Comfort Care Code Status Assessed: Yes (Full code) Critical Care: No Time Spent Managing Pts Care (In Minutes): 68
[2025-03-12] MEDS: VANCOMYCIN 1.75 GM in NA CHLORIDE 0.9% 500 ML IVPB ONE (10:23)
[2025-03-12 12:02] VITALS: BMI 44.6
[2025-03-12] MEDS: MORPHINE 2 MG/ML SYR IV PRN (12:13)
[2025-03-12] MEDS: TBO-FILGRASTIM 480 MCG/0.8 ML SYR SQ SCH (12:13)
[2025-03-12] MEDS: NA CHLORIDE 0.9% 1,000 ML IV SCH (15:15)
[2025-03-12] MEDS: MUPIROCIN 2% OINT 22GM TUBE TOP SCH (21:00)
[2025-03-13] MEDS: VANCOMYCIN 2 GM in NA CHLORIDE 0.9% 500 ML IVPB SCH (02:11)
[2025-03-13 04:37] LABS: Absolute Basophils 0.2 K/uL (0-0.5); Absolute Lymphocytes (CBC) 1.9 K/uL (0.7-4.9); Absolute Monocytes 1.9 K/uL (0.1-1.3); Absolute Neutrophil 0.2 K/uL (1.8-8.0); Eosinophils % 19.2 % (0-4.4); Hematocrit 30.5 % (39.6-49.0); Hemoglobin 10.4 g/dL (13.6-17.9); Lymphocytes % 37.6 % (15.3-44.8); MCH 28.1 pg (27.0-35.0); MCHC 33.9 g/dL (32.0-36.0); MCV 82.8 fL (80-100); MPV 8.1 fL (7.6-11.3); Monocytes % 36.4 % (3.3-12.3); Neutrophils % 3.8 % (41.7-73.7); Nucleated Red Blood Cells % 0.1 % (0-0); Platelets 272 thou/uL (152-406); RBC Red Blood Cell Count 3.69 M/uL (4.33-5.43); Red Cell Distribution Width 17.6 % (12.1-15.2)
[2025-03-13] MEDS: MORPHINE 2 MG/ML SYR IV ONE ×2 (04:50→12:29)
[2025-03-13 04:51] LABS: Anion Gap 9.3 mEq/L (5.0-15.0); Potassium 4.3 mEq/L (3.5-5.1)
[2025-03-13 06:07] LABS: Blood Morphology Comment NOT SEEN (NOT SEEN); Differential Total Cells Count 100; Eosinophils 20 % (0-3); Lymphocytes 40 % (15-42); Monocytes 35 % (0-10); Platelet Estimate ADEQ; Segmented Neutrophils 2 % (40-80)
--- NOTE | 2025-03-13 08:58 | P.PN ---
Date of Service: 03/13/25 Subjective: No measured fevers during hospitalization No acute events overnight Possible debridement today with general surgery ROS: 10 point ROS as noted above, otherwise negative Physical exam GEN: Alert, oriented, NAD HEENT: Normal conjunctiva, sclera anicteric CV: Regular rate and rhythm, no edema Pulm: Nonlabored respirations on room air ABD: Soft, nontender, nondistended MSK: No joint tenderness Integumentary: Wound to left lower extremity, right lower quadrant abdomen, toes with erythema Neuro: Normal speech, normal affect Vitals reviewed Assessment: Fevers, chronic left lower extremity wound and chronic right lower quadrant abdominal wound Congenital neutropenia Plan: Fevers, chronic left lower extremity wound and chronic right lower quadrant abdominal wound Multiple hospitalizations for similar Blood cultures obtained, will follow General SurgeryDr. Solorio consulte Possible debridement today with general surgery Broad-spectrum antibiotics with vancomycin/cefepime, high risk for infection Congenital neutropenia Daily Neupogen Monitor CBC daily DVT PPX: Lovenox Code status: Full Discharge Plan: Home Plan to discharge in: 48 Hours Time Spent Managing Pts Care (In Minutes): 35
--- NOTE | 2025-03-13 12:07 | EKG ---
Test Date: 2025-03-12 Test Time: 04:37:30 Wire Harness Design Engineer: MEASUREMENT RESULTS: Intervals: Rate: 96 OR: 140 QRSD: 80 QT: 348 QTc: 439 [place]: P: 51 OR: 140 QRS: 42 T: 13 INTERPRETIVE STATEMENTS: Normal sinus rhythm Nonspecific T wave abnormality Abnormal ECG Compared to ECG 01/08/2025 21:39:33 Sinus tachycardia no longer present T-wave abnormality still present Electronically Signed On 03-13-25 12:05:30 CDT by Gildardo Mayes
[2025-03-14] MEDS: TRAZODONE 50 MG TABLET PO PRN (02:25)
[2025-03-14 06:15] LABS: Absolute Basophils 0.1 K/uL (0-0.5); Absolute Eosinophils 0.9 K/uL (0-0.5); Absolute Lymphocytes (CBC) 1.2 K/uL (0.7-4.9); Absolute Monocytes 1.9 K/uL (0.1-1.3); Absolute Neutrophil 0.1 K/uL (1.8-8.0); Eosinophils % 21.7 % (0-4.4); Hematocrit 30.5 % (39.6-49.0); Hemoglobin 10.2 g/dL (13.6-17.9); Lymphocytes % 28.3 % (15.3-44.8); MCH 27.7 pg (27.0-35.0); MCHC 33.3 g/dL (32.0-36.0); MCV 83.4 fL (80-100); MPV 8.4 fL (7.6-11.3); Monocytes % 44.6 % (3.3-12.3); Neutrophils % 2.4 % (41.7-73.7); Nucleated Red Blood Cells % 0.2 % (0-0); Platelets 227 thou/uL (152-406); RBC Red Blood Cell Count 3.66 M/uL (4.33-5.43); Red Cell Distribution Width 17.2 % (12.1-15.2)
[2025-03-14 06:21] LABS: Anion Gap 6.7 mEq/L (5.0-15.0); Potassium 4.7 mEq/L (3.5-5.1)
[2025-03-14 10:09] VITALS: O2SAT 92
--- NOTE | 2025-03-14 12:14 | P.DS ---
Admission Date: 03/12/25 Discharge Date: 03/14/25 Disposition: [place] HOME/HOME HEALTH CARE Discharge Condition: GOOD Reason for Admission: Fever, neutropenia Brief History of Present Illness: Diagnosis Fevers, chronic left lower extremity wound and chronic right lower quadrant abdominal wound Congenital neutropenia [facility] 03/12/2025 34-year-old male with history of congenital neutropenia, chronic wounds of left lower extremity presents the emergency department chief complaint of fevers, left lower extremity pain. He reports checking his temperature at home with an oral thermometer with a Tmax of 102 last night. He was recently hospitalized from 02/26 to 03/02 and discharged on oral antibiotics. Did not undergo any surgical intervention at that time/debridement. Patient was evaluated today in the emergency department his white blood cell count was 2.3 absolute neutrophils 0.1 he had a low-grade temperature creatinine is 1.76 sodium is 133, he has a large open wound to his left lower extremity with some mild erythema surrounding as well as some erythema to the toes on his left foot. Given his fevers, neutropenia and increasing pain ED provider wishes to admit for further evaluation and management. Hospital Course: Fevers, chronic left lower extremity wound and chronic right lower quadrant abdominal wound Patient has multiple hospitalizations for similar reasons Blood cultures with no growth to day, afebrile this admission, no acute distress. General SurgeryDr. Solorio consulted, no need for surgical intervention at this time. Patient was administered broad-spectrum antibiotics with vancomycin/cefepime as he is a high risk for infection, discharged with Augmentin and mupirocin ointment. Congenital neutropenia Tolerated Daily Neupogen Monitored CBC daily Continue follow up with Dr. Bagley outpatient On 03/14/2025, Abel was seen on morning rounds, afebrile with some leukopenia noted, but chronic and stable. Tolerated vancomycin and cefepime, will discharge with Augmentin as well as continued follow-up with Dr. Solorio outpatient. Physical exam GEN: Alert and oriented x3, NAD HEENT: Normal conjunctiva, sclera anicteric CV: RRR, S1-S2 present Pulm: Symmetrical chest wall movements, on room air ABD: Soft and nontender on palpation, nondistended (obese) MSK: No joint tenderness Integumentary: Wound to left lower extremity, right lower quadrant abdomen, toes with erythema Neuro: Normal speech, normal affect Vital Signs/Physical Exam: Temp Pulse Resp BP Pulse Ox 98.2 F 100 H 15 134/65 92 03/14/25 08:00 03/14/25 08:00 03/14/25 10:51 03/14/25 08:00 03/14/25 10:51 Laboratory Data at Discharge: WBC 4.20 thou/uL (4.3-10.9) L 03/14/25 06:00 Hgb 10.2 g/dL (13.6-17.9) L 03/14/25 06:00 Hct 30.5 % (39.6-49.0) L 03/14/25 06:00 Plt Count 227 thou/uL (152-406) 03/14/25 06:00 PT 15.1 SECONDS (10-13.0) H 03/12/25 04:20 INR 1.34 03/12/25 04:20 APTT 29.3 SECONDS (27.2-37.4) 03/12/25 04:20 Sodium 138 mEq/L (136-145) 03/14/25 06:00 Potassium 4.7 mEq/L (3.5-5.1) 03/14/25 06:00 BUN 10 mg/dL (7-18) 03/14/25 06:00 Creatinine 1.05 mg/dL (0.70-1.30) 03/14/25 06:00 Glucose 121 mg/dL (74-106) H 03/14/25 06:00 Total Bilirubin 0.9 mg/dL (0.2-1.0) 03/12/25 04:20 AST 22 U/L (15-37) 03/12/25 04:20 ALT 18 U/L (16-61) 03/12/25 04:20 Alkaline Phosphatase 49 U/L (45-117) 03/12/25 04:20 Home Medications: Hydrocodone 7.5/APAP 325 [[place] 7.5/325 mg*] 1 tab PO BID PRN 02/27/25 Trazodone HCl 100 mg PO BEDTIME PRN 02/27/25 lisinopriL [Prinivil*] 10 mg PO DAILY #30 tab 03/02/25 Tizanidine HCl [Zanaflex] 4 mg PO BEDTIME 05/04/25 Amox/Clavulanate [Augmentin 875-125 Tab] 875 mg PO BID 10 Days #20 tab 03/14/25 Mupirocin Oint [Bactroban 2% Ointment*] 1 appl TOP BID 30 Days #1 tube 03/14/25 New Medications: Amox/Clavulanate [Augmentin 875-125 Tab] 875 mg PO BID 10 Days #20 tab Mupirocin Oint [Bactroban 2% Ointment*] 1 appl TOP BID 30 Days #1 tube Physician Discharge Instructions: Follow up with a Family Medicine Physician of your choice: NANO TAYLOR MD [address], [address] [place] [address] ACCEPTING NEW PATIENTS! FIONA MCKEON MD [address] [facility], [address] [place] [address] ACCEPTING NEW PATIENTS! CAL GOODRICH, [address] [address] LINDA HARVEY MD [address] [facility], [address] [place] [address] ANNAMARIE CARDONA MD [address] [facility], [address] [place] [address] CLIF KAY MD [address] [facility], [place] [address] ALEXUS WILSON MD [address] [place] [address] SHADI ADAMSON [address] [facility] [address] [facility], [address] [place] [address] JUAN MARQUEZ MD [address], [address] [place] [address] EVELYN MARQUEZ APRN [facility] [address], [address] [place], [place] [id number] PATRICK YEN, [address] [facility], [address] [place] [address] 1. Please call and schedule a follow-up appointment with your PCP in 3-5 days - Please follow-up with your PCP for medication refills/adjustments 2. Please call and schedule a follow-up appointment with Dr. Solorio in one week 3. Continue regular diet 4. activity restrictions fall precautions 5. Return to the ED if symptoms worsen New medications Augmentin 875 mg twice daily x 10 days Diet: Regular Activity: Fall precautions Followup: Clyde Solorio MD [ACTIVE - CAN ADMIT] - 1 Week [facility] [AFFILIATE - CAN NOT ADMIT] -
[2025-03-14 12:17] VITALS: BP 144/62; TEMP 98.3
== END 2025-03-14 16:00 | disposition home health service (06) | DRG 872 ==
LOC: ER 02:32 → ERHOLD 08:21 → 4TH 10:52
PROVIDERS: ADMIT Internal Medicine; ATTEND Hospitalist
PROC: 02HV33Z Insertion of Infusion Device into Superior Vena Cava, Percutaneous Approach (ICD-10-PCS; principal; 2025-03-13)
DX: A41.9 Sepsis, unspecified organism (principal); L03.116 Cellulitis of left lower limb; Z59.02 Unsheltered homelessness; D70.0 Congenital agranulocytosis; Z88.1 Allergy status to other antibiotic agents; Z88.8 Allergy status to other drugs, medicaments and biological substances; Z79.899 Other long term (current) drug therapy
CPT/HCPCS: 36415; 80048; 80053; 80202; 82947; 83605; 85025; 85610; 85730; 87040; 93005; 96365; 96366; 96375; 97116; 97161; 97530; 99211; 99285; J0692; J1447; J1650; J2270; J2405; J3370; J7030; J7040; J7050

== ENCOUNTER 2025-08-05 12:22 | Inpatient (IN) | payer OTHER ==
[2025-08-05] MEDS ORDERED: NA CHLORIDE 0.9% 500 ML ONE (13:19)
[2025-08-05 13:27] LABS: Absolute Lymphocytes (CBC) 0.8 K/uL (0.7-4.9); Hematocrit 32.2 % (39.6-49.0); Hemoglobin 10.9 g/dL (13.6-17.9); MCH 27.7 pg (27.0-35.0); MCHC 33.9 g/dL (32.0-36.0); MCV 81.9 fL (80-100); MPV 8.0 fL (7.6-11.3); Nucleated RBC Absolute Count 0.0 (0-0); Nucleated Red Blood Cells % 0.2 % (0-0); RBC Red Blood Cell Count 3.94 M/uL (4.33-5.43); White Blood Count 2.30 thou/uL (4.3-10.9)
[2025-08-05 13:33] LABS: Influenza A Ag Negative; Influenza B Ag Negative; SARS-CoV-2 Antigen Rapid Res Negative (Negative)
--- NOTE | 2025-08-05 13:36 | RAD REPORT ---
Procedure: Chest Single View HISTORY: Congestion COMPARISON: May 2025 FINDINGS: The lungs appear clear of acute infiltrate. Upper lobe vessels are prominent indicative of pulmonary venous hypertension. No significant pleural effusion noted. The heart is moderately enlarged..
[2025-08-05 13:40] LABS: PT Prothrombin Time 16.5 SECONDS (10-13.0); PTT, Activated Partial Thromb 29.5 SECONDS (27.2-37.4); Protime INR 1.48
[2025-08-05 13:48] LABS: Anion Gap 8.4 mEq/L (5.0-15.0); BUN Blood Urea Nitrogen 8.0 mg/dL (7-18); Glucose Level 173.0 mg/dL (74-106); Potassium 3.4 mEq/L (3.5-5.1); Troponin High Sensitivity 30.4 pg/mL (<58.9)
[2025-08-05] MEDS ORDERED: ONDANSETRON 4 MG/2 ML VIAL ONE (13:50)
[2025-08-05] MEDS ORDERED: HYDROMORPHONE HCL 1 MG/ML INJ ONE (13:51)
[2025-08-05 14:13] LABS: Anisocytosis 1+; Blood Morphology Comment NOTED (NOT SEEN); Differential Total Cells Count 100; Segmented Neutrophils 2 % (40-80)
--- NOTE | 2025-08-05 15:24 | RAD REPORT ---
EXAM: Chest Abdomen Pelvis W Cont CLINICAL INDICATION: Chest and abdominal pain TECHNIQUE: CT chest, abdomen and pelvis was performed, with 100 cc Isovue-300 IV contrast, as per de partment protocol. Axial, sagittal and coronal reconstructions were obtained. One or more of the following dose reduction techniques were used: Automated exposure control, adjustment of the mA and/o r kV according to the patient size, and/or iterative reconstruction. Unless otherwise specified, incidental findings do not require dedicated imaging follow-up. [id number]. Oral contrast not given. This limits evaluation of the bowel. COMPARISON: 2023 FINDINGS: Mild chronic appearing interstitial opacities within the lungs. No mediastinal or hilar lymphadenopathy. No pleural effusion.. No pericardial effusion Mild hepatomegaly. Fatty infiltration of the liver. Gallstones. Gallbladder wall not thickened. The spleen, pancreas, adrenals, kidneys and bladder do not demonstrate an acute traumatic injury. There is no evidence of diverticulitis Bladder is distended Small umbilical hernia IMPRESSION: Cholelithiasis without evidence of cholecystitis Mild hepatomegaly with fatty infiltration
--- NOTE | 2025-08-05 15:58 | EDPHYS ---
Physician Documentation [facility] Name: Abel Maria Age: 34 yrs Sex: Male : 1990 Arrival Date: 08/05/2025 Time: 12:22 Bed 17 Private MD: ED Physician Yared Banks HPI: 08/05 17:18 This 34 yrs old Male presents to ER via EMS with complaints of Fever. dr5 17:18 The patient reports fever, not measured (subjective). Onset: The symptoms/episode dr5 began/occurred 3 day(s) ago. Patient is a 34-year-old male with history of and granulocytosis, anemia, cellulitis, chronic leg wounds since 2021 of the left lower leg coming in by EMS for fever that provide for the past 3 days. Patient reports that he was born with neutropenia and has worsening pain and redness to left lower leg.. Historical: - Allergies: 12:46 Bactrim; ar8 12:46 Dilaudid; ar8 12:46 Doxycycline; ar8 12:46 Ibuprofen; ar8 - Home Meds: 12:46 gabapentin oral [Active]; hydrocodone-acetaminophen 10-325 mg Oral tablet [Active]; ar8 Morphine Oral [Active]; - PMHx: 12:46 agranulocytosis; Anemia; Anemia; Cellulitis; Cellulitis; Chronic leg wound; Left leg ar8 (2021); Chronic leg wound; Left leg (2021); Chronic wound to RLQ (July 2023); Chronic wound to RLQ (July 2023); Congenital neutropenia; Congenital neutropenia; Congestive heart failure; Congestive heart failure; depressive disorder; depressive disorder; kidney disease; kidney disease; Sleep Apnea; - PSHx: 12:46 eye; leg; leg; rectum; ar8 - Immunization history:: Adult Immunizations not up to date. - Infectious Disease History:: Denies. - Social history:: Smoking status: Patient denies any tobacco usage or history of. ROS: 17:18 Constitutional: as per hpi dr5 Exam: 17:18 Constitutional: This is a well developed, well nourished patient who is awake, alert, dr5 and in no acute distress. Head/Face: Normocephalic, atraumatic. Eyes: Pupils equal round and reactive to light, extra-ocular motions intact. Lids and lashes normal. Conjunctiva and sclera are non-icteric and not injected. Cornea within normal limits. Periorbital areas with no swelling, redness, or edema. Neck: Trachea midline, no thyromegaly or masses palpated, and no cervical lymphadenopathy. Supple, full range of motion without nuchal rigidity, or vertebral point tenderness. No Meningismus. Chest/axilla: Normal chest wall appearance and motion. Nontender with no deformity. No lesions are appreciated. Cardiovascular: Regular rate and rhythm with a normal S1 and S2. Normal PMI, no JVD. No pulse deficits. Respiratory: Lungs have equal breath sounds bilaterally, clear to auscultation. No rales, rhonchi or wheezes noted. No increased work of breathing, no retractions or nasal flaring. Back: No spinal tenderness. No costovertebral tenderness. Full range of motion. MS/ Extremity: Pulses equal, no cyanosis. Neurovascular intact. Full, normal range of motion. Neuro: Awake and alert, GCS 15, oriented to person, place, time, and situation. Cranial nerves II-XII grossly intact. Motor strength 5/5 in all extremities. Sensory grossly intact. Cerebellar exam normal. Normal gait. 17:18 Skin: cellulitis, that is moderate, on the lateral aspect of left calf, left calf, medial aspect of left calf and left bruno, Patient has chronic left lower leg wound with tenderness to palpation. Patient reports that he has home health coming out but has only been out once for dressing change. Patient reports fever at home, Vital Signs: 12:44 BP 153 / 81; Pulse 126; Resp 24; Temp 99.8(O); Pulse Ox 99% on 2 lpm NC; Weight 113.4 ar8 kg; Height 5 ft. 2 in. ; Pain 8/10; 13:16 BP 118 / 88; Pulse 106; Resp 22; Temp 100.1(O); Pulse Ox 98% on R/A; ar8 14:15 BP 148 / 85; Pulse 108; Resp 20; Pulse Ox 99% ; ar8 14:45 BP 140 / 89; Pulse 100; Resp 19 S; Pulse Ox 98% on 2 lpm NC; ar8 15:45 BP 135 / 72; Pulse 114; Resp 22; Pulse Ox 98% on 2 lpm NC; Pain 7/10; ar8 16:45 BP 107 / 58; Pulse 100; Resp 21; Pulse Ox 97% on 2 lpm NC; ar8 17:39 BP 100 / 40; Pulse 81; Resp 20; Pulse Ox 95% on R/A; ar8 18:00 BP 108 / 68; Pulse 89; Resp 17; Pulse Ox 97% on 2 lpm NC; ar8 12:44 Body Mass Index 45.73 (113.40 kg, 157.48 cm) ar8 12:44 Pain Scale: Adult ar8 15:45 Pain Scale: Adult ar8 MDM: 12:36 Medical Screening Exam initiated dr5 17:18 Differential diagnosis: viral Infection, bacterial infection, URI, Pneumonia, COVID, dr5 flu, cellulitis, anemia. Data reviewed: vital signs, nurses notes, EMS record, lab test result(s), cardiac enzymes, troponin i, CBC, white blood cell count, hemoglobin, hematocrit, platelets, electrolytes, sodium, potassium, chloride, serum bicarbonate, BUN, creatinine, serum glucose, Flu: COVID-negative, PRO BNP, EKG, radiologic studies, CT scan. Consideration of Admission/Observation Patient was admitted/placed on observation. Management of patient was discussed with the following: Hospitalist: Dr. White. 17:21 I considered the following discharge prescriptions or medication management in the [facility] emergency department I discussed and recommended Over The Counter medications, Medications were administered in the Emergency Department. See MAR. Historians other than the Patient: EMS: [facility]. Care significantly affected by the following chronic conditions: Agranulocytosis, anemia, cellulitis, chronic leg wound. Care significantly affected by the following Social Determinants of Health: Poor access to healthcare and/or lack of insurance, Poor access to transportation, Problems related to employment. Counseling: I had a detailed discussion with the patient and/or guardian regarding the historical points, exam findings, and any diagnostic results supporting the discharge/admit diagnosis, the presence of at least one elevated blood pressure reading (>120/80) during this emergency department visit, lab results, radiology results, the need for further work-up and treatment in the hospital. Medication response: Patient was requesting only Dilaudid.. Response to treatment: the patient's symptoms have markedly improved after treatment. ED course: Will admit patient to hospitalist for cellulitis of left lower leg with likely IV antibiotics given patient's neutropenic state. 08/05 12:52 Order name: Basic Metabolic Panel; Complete Time: 14:[address] [facility] 08/05 12:52 Order name: CBC with Diff; Complete Time: 14:[address] [facility] 08/05 12:52 Order name: Troponin HS; Complete Time: 14:[address] [facility] 08/05 12:52 Order name: COVID-19 Ag + Flu A+B Ag; Complete Time: 13:[address] [facility] 08/05 12:52 Order name: Group A Streptococcus Rapid; Complete Time: 13:[address] [facility] 08/05 13:03 Order name: BNP; Complete Time: 14:[address] [facility] 08/05 13:03 Order name: Blood Culture Adult (2) 08/05 13:03 Order name: Lactate w/ 2H reflex if indic.; Complete Time: 13:[address] [facility] 08/05 13:03 Order name: Protime (+inr); Complete Time: 13:[address] [facility] 08/05 13:03 Order name: Ptt, Activated; Complete Time: 13:[address] [facility] 08/05 13:36 Order name: Throat Culture [facility] 08/05 13:38 Order name: Manual Differential; Complete Time: 14:19 [facility] 08/05 16:50 Order name: Basic Metabolic Panel [facility] 08/05 16:50 Order name: Basic Metabolic Panel [facility] 08/05 16:50 Order name: Basic Metabolic Panel [facility] 08/05 16:50 Order name: Basic Metabolic Panel [facility] 08/05 16:50 Order name: CBC with Automated Diff [facility] 08/05 16:50 Order name: CBC with Automated Diff [facility] 08/05 16:50 Order name: CBC with Automated Diff [facility] 08/05 12:52 Order name: XRAY Chest (1 view); Complete Time: 13:[address] [facility] 08/05 14:54 Order name: Chest Abdomen Pelvis W Cont; Complete Time: 15:35 [facility] 08/05 13:03 Order name: EKG; Complete Time: 13:[address] [facility] 08/05 16:50 Order name: CONS Physician Consult [facility] 08/05 12:52 Order name: Cardiac monitoring; Complete Time: 13:[address] [facility] 08/05 12:52 Order name: EKG - Nurse/Tech; Complete Time: 13:[address] [facility] 08/05 12:52 Order name: IV Saline Lock; Complete Time: 13:[address] [facility] 08/05 12:52 Order name: Labs collected and sent; Complete Time: 13:[address] [facility] 08/05 12:52 Order name: O2 Per Protocol; Complete Time: 13:34 dr5 08/05 12:52 Order name: O2 Sat Monitoring; Complete Time: 13: dr5 08/05 13:03 Order name: Accucheck; Complete Time: 13:17 dr5 EC:39 Rate is 102 beats/min. Rhythm is regular. QRS Hankins is Normal. WI interval is normal at dr5 142 msec. QRS interval is normal at 82 msec. QT interval is normal at 368 msec. Clinical impression: Sinus tachycardia and No evidence of ischemia. Administered Medications: 13:03 CANCELLED (Hx of CHF): ns 0.9% 1000 ml IV at 1000 ml once; to be given as a bolus over dr5 60 minutes 13:33 Drug: NS 0.9% IV 500 ml IV at bolus once; to be given as a bolus over 30 minutes Route: ar8 IV; Rate: bolus; Site: right upper arm; 14:10 Follow up: Response: No adverse reaction; IV Status: Completed infusion; IV Intake: ar8 500ml 13:54 Drug: Ondansetron IVP 4 mg IVP once; over 2 minutes Route: IVP; Site: right upper arm; ar8 14:30 Follow up: Response: No adverse reaction ar8 13:56 Drug: HYDROmorphone IVP 1 mg IVP once Route: IVP; Site: right upper arm; ar8 14:30 Follow up: Response: No adverse reaction; Pain is decreased ar8 Disposition Summary: 08/05/25 15:57 Hospitalization Ordered Notes: Hospitalization Status: Inpatient Admission dr5 Provider: Stephy White dr5 [facility]5 Condition: Stable dr5 Problem: chronic dr5 Symptoms: have worsened dr5 Bed/Room Type: Standard dr5 Room Assignment: 409(08/05/25 17:04) eb Diagnosis - Fever, unspecified dr5 - Unspecified open wound, left lower leg dr5 Forms: - Medication Reconciliation Form dr5 - SBAR form dr5 - Leadership Thank You Letter dr5 Addendum: 08/10/2025 07:01 Co-signature as Attending Physician, Yared Banks MD I reviewed the patient's care r n provided by the Advanced Practice Provider and agree with the diagnosis and treatment plan. Signatures: Dispatcher [employer] EDYared Holguin MD MD rn Botello, Elizabeth eb Rhodes, Otto, HOSPITAL TECHNICIAN-C HOSPITAL TECHNICIAN-Cdr5 Caleb Amaral, RN RN ar8 Corrections: (The following items were deleted from the chart) 08/05 12:52 12:52 BASIC METABOLIC PANEL+C.LAB.BRZ ordered. EDMS EDMS 12: 12:52 CBC+H.LAB.BRZ ordered. EDMS EDMS 12: 12:52 Troponin High Sensitivity+C.LAB.BRZ ordered. EDMS EDMS 12: 12:52 COVID-19 Ag + Flu A+B Ag+I.LAB.BRZ ordered. EDMS EDMS 12:52 12:52 Group A Streptococcus Rapid Sc+I.LAB.BRZ ordered. EDMS EDMS 12:52 12:52 Chest Single View+RAD.RAD.BRZ ordered. EDMS EDMS 13:03 12:52 NS 0.9% IV 1000 ml IV at 1000 ml once; to be given as a bolus over 60 minutes dr5 ordered. dr5 14:09 14:09 Chest Abdomen W/ Con+CT.RAD.BRZ ordered. EDMS EDMS 17:04 15:57 dr5 eb 17:28 17:18 Management of patient was discussed with the following: Hospitalist: Dr. White. dr5dr5
--- NOTE | 2025-08-05 15:58 | ER ---
Nurse's Notes [facility] Name: Abel Maria Age: 34 yrs Sex: Male : 1990 Arrival Date: 08/05/2025 Time: 12:22 Bed 17 Private MD: Diagnosis: Fever, unspecified;Unspecified open wound, left lower leg Presentation: 08/05 12:44 Chief complaint: Patient states: C/O fever, CHCIAS, and body aches for several days. ar8 Coronavirus screen: At this time, the client does not indicate any symptoms associated with coronavirus-19. Ebola Screen: No symptoms or risks identified at this time. Initial Sepsis Screen: Does the patient meet any 2 criteria? RR > 20 per min. HR > 90 bpm. Yes Does the patient have a suspected source of infection? No. Patient's initial sepsis screen is negative. Risk Assessment: Do you want to hurt yourself or someone else? Patient reports no desire to harm self or others. Onset of symptoms was August 03, 2025. 12:44 Method Of Arrival: EMS: [facility] ar8 12:44 Acuity: RICH 3 ar8 Triage Assessment: 12:46 General: Appears in no apparent distress. Behavior is calm, cooperative. Pain: ar8 Complains of pain in CHICAS and generalized body aches. Neuro: Level of Consciousness is awake, alert, obeys commands, Oriented to person, place, time, situation. Cardiovascular: Rhythm is sinus tachycardia. Respiratory: Airway is patent Respiratory effort is even, unlabored, Respiratory pattern is regular, symmetrical. GI: Abdomen is obese. : No signs and/or symptoms were reported regarding the genitourinary system. Derm: Reports chronic wound to LLE and right lower abdominal fold. Musculoskeletal:. Historical: - Allergies: 12:46 Bactrim; ar8 12:46 Dilaudid; ar8 12:46 Doxycycline; ar8 12:46 Ibuprofen; ar8 - Home Meds: 12:46 gabapentin oral [Active]; hydrocodone-acetaminophen 10-325 mg Oral tablet [Active]; ar8 Morphine Oral [Active]; - PMHx: 12:46 agranulocytosis; Anemia; Anemia; Cellulitis; Cellulitis; Chronic leg wound; Left leg ar8 (2021); Chronic leg wound; Left leg (2021); Chronic wound to RLQ (July 2023); Chronic wound to RLQ (July 2023); Congenital neutropenia; Congenital neutropenia; Congestive heart failure; Congestive heart failure; depressive disorder; depressive disorder; kidney disease; kidney disease; Sleep Apnea; - PSHx: 12:46 eye; leg; leg; rectum; ar8 - Immunization history:: Adult Immunizations not up to date. - Infectious Disease History:: Denies. - Social history:: Smoking status: Patient denies any tobacco usage or history of. Screenin:56 [facility] ED Fall Risk Assessment (Adult) History of falling in the last 3 months, ar8 including since admission No falls in past 3 months (0 pts) Confusion or Disorientation No (0 pts) Intoxicated or Sedated No (0 pts) Impaired Gait No (0 pts) Mobility Assist Device Used No (0 pt) Altered Elimination No (0 pt) Score/Fall Risk Level 0 - 2 = Low Risk Oriented to surroundings, Maintained a safe environment. Abuse screen: Denies threats or abuse. Nutritional screening: No deficits noted. Tuberculosis screening: No symptoms or risk factors identified. Assessment: 12:56 Reassessment: See triage assessment. ar8 Vital Signs: 12:44 BP 153 / 81; Pulse 126; Resp 24; Temp 99.8(O); Pulse Ox 99% on 2 lpm NC; Weight 113.4 ar8 kg; Height 5 ft. 2 in. ; Pain 8/10; 13:16 BP 118 / 88; Pulse 106; Resp 22; Temp 100.1(O); Pulse Ox 98% on R/A; ar8 14:15 BP 148 / 85; Pulse 108; Resp 20; Pulse Ox 99% ; ar8 14:45 BP 140 / 89; Pulse 100; Resp 19 S; Pulse Ox 98% on 2 lpm NC; ar8 15:45 BP 135 / 72; Pulse 114; Resp 22; Pulse Ox 98% on 2 lpm NC; Pain 7/10; ar8 16:45 BP 107 / 58; Pulse 100; Resp 21; Pulse Ox 97% on 2 lpm NC; ar8 17:39 BP 100 / 40; Pulse 81; Resp 20; Pulse Ox 95% on R/A; ar8 18:00 BP 108 / 68; Pulse 89; Resp 17; Pulse Ox 97% on 2 lpm NC; ar8 12:44 Body Mass Index 45.73 (113.40 kg, 157.48 cm) ar8 12:44 Pain Scale: Adult ar8 15:45 Pain Scale: Adult ar8 ED Course: 12:35 Patient arrived in ED. eb 12:36 Otto Severino FNP-C [facility] 12:36 Yared Banks MD is Attending Physician. dr5 12:44 Caleb Amaral, SONG is Primary Nurse. ar8 12:46 Triage completed. ar8 12:46 Arm band placed on right wrist. ar8 12:56 Bed in low position. Call light in reach. Side rails up X2. Provided Education on: plan ar8 of care. Client placed on continuous cardiac and pulse oximetry monitoring. NIBP monitoring applied. 12:56 No provider procedures requiring assistance completed. ar8 13:10 Inserted saline lock: 22 gauge in right upper arm, using aseptic technique. Blood ar8 collected. Flushed with 10 mL NS. 13:27 XRAY Chest (1 view) In Process Unspecified. EDMS 13:43 EKG done, by solar lab technician. reviewed by Otto TOBIN. ts3 14:54 Throat Culture Sent. ar8 14:[address] via stretcher. ar8 15:10 Chest Abdomen Pelvis W Cont In Process Unspecified. EDMS 15:44 Nurse Practitioner and/or Physician Corporate Librarian to see patient. ar8 15:56 Stephy White MD is Hospitalizing Provider. dr5 17:30 Wound care: to decubitus located on lateral aspect of left calf was dressed with ar8 Kerlix, ABD pads, Vaseline gauze. 18:10 Patient admitted, IV remains in place. ar8 Administered Medications: 13:03 CANCELLED (Hx of CHF): ns 0.9% 1000 ml IV at 1000 ml once; to be given as a bolus over dr5 60 minutes 13:33 Drug: NS 0.9% IV 500 ml IV at bolus once; to be given as a bolus over 30 minutes Route: ar8 IV; Rate: bolus; Site: right upper arm; 14:10 Follow up: Response: No adverse reaction; IV Status: Completed infusion; IV Intake: ar8 500ml 13:54 Drug: Ondansetron IVP 4 mg IVP once; over 2 minutes Route: IVP; Site: right upper arm; ar8 14:30 Follow up: Response: No adverse reaction ar8 13:56 Drug: HYDROmorphone IVP 1 mg IVP once Route: IVP; Site: right upper arm; ar8 14:30 Follow up: Response: No adverse reaction; Pain is decreased ar8 Medication: 12:56 VIS not applicable for this client. ar8 Intake: 14:10 IV: 500ml; Total: 500ml. ar8 Output: 15:42 Urine: 1000ml (Voided); Total: 1000ml. ar8 Outcome: 15:57 Decision to Hospitalize by Provider. dr5 18:10 Admitted to Med/surg accompanied by nurse, via stretcher, room 409, Report called to ar8 sent to 4th floor 18:10 Condition: stable ar8 18:10 Discharge instructions given to N/A 18:22 Patient left the ED. ar8 Signatures: Dispatcher [employer] EDMS Fabi Moyer Dustin, REGIONAL TRANSPORTATION MANAGER-C REGIONAL TRANSPORTATION MANAGER-Cdr5 Michell Wheeler 3 Caleb Amaral, RN RN ar8
[2025-08-05] MEDS ORDERED: ONDANSETRON 4 MG/2 ML VIAL IV PRN (16:44)
[2025-08-05] MEDS ORDERED: ACETAMINOPHEN 500 MG TAB PO PRN (16:44)
[2025-08-05] MEDS: VANCOMYCIN 1 GM in NA CHLORIDE 0.9% 250 ML IVPB SCH (17:00)
[2025-08-05] MEDS ORDERED: MORPHINE 2 MG/ML SYR ONE (17:45)
[2025-08-05] MEDS ORDERED: ALBUTEROL 2.5 MG/3 ML NEB SOL NEB PRN (17:53)
[2025-08-05] MEDS: MORPHINE 2 MG/ML SYR IV PRN (17:56)
[2025-08-05] MEDS ORDERED: GLUCAGON 1 MG/VIAL IM PRN (17:57)
[2025-08-05] MEDS ORDERED: D10W 125 ML IV PRN (17:57)
--- NOTE | 2025-08-05 17:57 | P.HP ---
Patient History Date of Service: 08/05/25 History of Present Illness: 34-year-old male with a past medical history of severe neutropenia, obesity, CHF, left lower extremity wound, right sided abdominal wound presenting with fevers. He states the wound care nurse came by his house. At that time he measured a fever of 101.4. He knew something was off because he was not feeling well. Associated symptoms include fatigue, and chills. He took Tylenol this morning with some relief. He states in the ambulance his blood pressure was higher and his heart rate was in the 100s. He is currently on disability. He has had artificial tear ducts implanted in the past but no other implants. He is alone. Allergies doxycycline Allergy (Verified 10/28/24 16:18) Vomiting sulfamethoxazole [From Bactrim] Allergy (Verified 07/13/24 15:08) Itching trimethoprim [From Bactrim] Allergy (Verified 07/13/24 15:08) Itching Home Medications: Hydrocodone 7.5/APAP 325 [Belt 7.5/325 mg*] 1 tab PO BID PRN 02/27/25 Trazodone HCl 100 mg PO BEDTIME PRN 02/27/25 Tizanidine HCl [Zanaflex] 4 mg PO BEDTIME 03/12/25 Albuterol Neb [Proventil 0.083% Neb Soln] 2.5 mg NEB [id number] PRN amp 04/28/25 Lidocaine 4% Patch [Lidoderm 5% Patch*] 1 patch TOP DAILY pat 04/28/25 levoFLOXacin [Levaquin*] 750 mg PO DAILY tab 04/28/25 Collagenase [Santyl Ointment*] 1 appl TOP DAILY 30 Days #1 bottle 05/30/25 Tbo-Filgrastim [Granix] 480 mcg SQ DAILY #0 syr 05/30/25 Zinc Oxide [Zinc Oxide 20%*] 1 appl TOP BID 30 Days #1 tube 05/30/25 - Past Medical/Surgical History Diabetic: No -: Neutropenia -: Anemia -: Non healing wounds on the abdominal wall and the LLE -: ALLISON -: CHF -: Debridement of the wounds on the left leg -: 03/29/24 LEXISCAN INJECTED. CARDIOLITE INJECTED no ischemia Psychosocial/ Personal History: Pt lives in a trailer now moved to the [place] area in [place] - Family History Mother Notes: Severe chronic acute Congenital neutropenia - Social History Alcohol use: No CD- Drugs: No Caffeine use: No Review of Systems General: Fever, Chills Eyes: Unremarkable ENT: Unremarkable Respiratory: Unremarkable Cardiovascular: Unremarkable Gastrointestinal: Unremarkable Genitourinary: Unremarkable Musculoskeletal: Unremarkable Integumentary: Other (Left leg wound, right abdominal wound) Neurological: Unremarkable Physical Examination - Physical Exam General: In no apparent distress HEENT: Atraumatic, Normocephalic Neck: Supple Respiratory: Clear to auscultation bilaterally Cardiovascular: Edema Gastrointestinal: Normal bowel sounds Musculoskeletal: No clubbing Integumentary: Venous stasis ulcer, Other (Right abdominal wound dressed) Neurological: Normal speech Lymphatics: No axilla or inguinal lymphadenopathy - Studies Laboratory Data (last 24 hrs) 08/05/25 08/05/25 08/05/25 13:10 13:10 13:10 WBC 2.30 L Hgb 10.9 L Hct 32.2 L Plt Count 285 PT 16.5 H INR 1.48 APTT 29.5 Sodium 134 L Potassium 3.4 L BUN 8 Creatinine 1.07 Glucose 173 H Assessment and Plan - Plan Severe neutropenia /congenital neutropenia Fevers Chronic left leg wound Chronic right abdominal wound CHF Obesity Hypertension Obstructive sleep apnea Anemia Hypokalemia Uncontrolled type 2 diabetes mellitus with hyperglycemia Admit to floor Start IV Zosyn and vancomycin Consult infectious disease Consult wound care Hydralazine IV as needed for SBP greater than 160 CPAP night Replace potassium per protocol Start sliding scale once Fluid restriction to 2 L can salt restriction Tylenol for fevers Continue home Belt for pain control, add IV morphine DVT prophylaxis with Lovenox - Advance Directives Does patient have a Living Will: No Does patient have a Durable POA for Healthcare: No
[2025-08-05] MEDS: CEFEPIME 2 GM in NA CHLORIDE 0.9% 100 ML IV SCH (18:00)
[2025-08-05] MEDS: VANCOMYCIN 2 GM in NA CHLORIDE 0.9% 500 ML IVPB ONE (18:00)
[2025-08-05] MEDS: NA CHLORIDE 0.9% 250 ML ONE (21:07)
[2025-08-05] MEDS: MORPHINE 4 MG/ML SYR IV PRN (21:16)
[2025-08-05] MEDS: INSULIN REGULAR (HUMAN) 100 UNIT/ML SQ SCH (21:18)
[2025-08-06 00:35] VITALS: BMI 45.7
[2025-08-06] MEDS ORDERED: VANCOMYCIN 2 GM in NA CHLORIDE 0.9% 500 ML IVPB SCH (06:00)
[2025-08-06 06:57] LABS: Anion Gap 6.7 mEq/L (5.0-15.0); BUN Blood Urea Nitrogen 10.0 mg/dL (7-18); Glucose Level 119.0 mg/dL (74-106); Potassium 3.7 mEq/L (3.5-5.1)
[2025-08-06 08:00] LABS: Absolute Lymphocytes (CBC) 1.2 K/uL (0.7-4.9); Hematocrit 33.0 % (39.6-49.0); Hemoglobin 11.2 g/dL (13.6-17.9); MCH 28.0 pg (27.0-35.0); MCHC 33.9 g/dL (32.0-36.0); MCV 82.5 fL (80-100); MPV 8.9 fL (7.6-11.3); Nucleated RBC Absolute Count 0.0 (0-0); Nucleated Red Blood Cells % 0.1 % (0-0); RBC Red Blood Cell Count 4.00 M/uL (4.33-5.43); White Blood Count 3.00 thou/uL (4.3-10.9)
[2025-08-06] MEDS: HYDROCODONE/APAP 7.5/325 MG TAB PO PRN (08:30)
[2025-08-06] MEDS: LIDOCAINE 4% PATCH TOP SCH (08:30)
[2025-08-06] MEDS: CEFEPIME 2 GM in NA CHLORIDE 0.9% 100 ML IV SCH (08:30)
[2025-08-06] MEDS: VANCOMYCIN 2 GM in NA CHLORIDE 0.9% 500 ML IVPB SCH (10:07)
[2025-08-06] MEDS ORDERED: POLYETHYL GLY 3350 17 GM/DOSE PO PRN (10:18)
--- NOTE | 2025-08-06 11:18 | P.PN ---
Date of Service: 08/06/25 Subjective: Endorsing uncontrolled pain. States he would like his tizanidine and gabapentin to be restarted. In addition he is having trouble having a bowel movement. We discussed starting a stool softener and laxative. He denies fevers or chills. Review of Systems General: Fever, Chills Eyes: Unremarkable ENT: Unremarkable Respiratory: Unremarkable Cardiovascular: Unremarkable Gastrointestinal: Unremarkable Genitourinary: Unremarkable Musculoskeletal: Unremarkable Integumentary: Other (Left leg wound, right abdominal wound) Neurological: Unremarkable Physical Examination - Physical Exam General: In no apparent distress HEENT: Atraumatic, Normocephalic Neck: Supple Respiratory: Clear to auscultation bilaterally Cardiovascular: Edema Gastrointestinal: Normal bowel sounds Musculoskeletal: No clubbing Integumentary: Venous stasis ulcer, Other (Right abdominal wound dressed) Neurological: Normal speech Lymphatics: No axilla or inguinal lymphadenopathy - Studies Laboratory Data (last 24 hrs) 08/05/25 08/05/25 08/05/25 13:10 13:10 13:10 WBC 2.30 L Hgb 10.9 L Hct 32.2 L Plt Count 285 PT 16.5 H INR 1.48 APTT 29.5 Sodium 134 L Potassium 3.4 L BUN 8 Creatinine 1.07 Glucose 173 H Assessment and Plan - Plan Severe neutropenia /congenital neutropenia Fevers Chronic left leg wound Chronic right abdominal wound CHF Obesity Hypertension Obstructive sleep apnea Anemia Hypokalemia Uncontrolled type 2 diabetes mellitus with hyperglycemia 08/06 - Absolute neutrophil count is 42. continue IV antibiotics - Dr. Bagley who reccommended 480 of neupogen for 3 days stop date on - Start gabapentin daily. Consider starting his tizanidine. We discussed combining to many sedating medications at once. He has verbally voiced his understanding - Await infectious disease input - Continue CPAP nightly - Dr. Clyde Solorio takes care of his wounds. Will touch base with him today - Continue regular diet. Protein supplementation takes BDA wound healing - Will check B12, folate, iron panel - Check magnesium and potassium. Keep magnesium level above 2, keep potassium level above [address] Bagley - Add MiraLAX daily as needed, and senna-S twice daily at bedtime Admit to floor Start IV Zosyn and vancomycin Consult infectious disease Consult wound care Hydralazine IV as needed for SBP greater than 160 CPAP night Replace potassium per protocol Start sliding scale once Fluid restriction to 2 L can salt restriction Tylenol for fevers Continue home [place] for pain control, add IV morphine DVT prophylaxis with Lovenox Total time spent caring for this patient as the attending hospitalist was 55 minutes, including review of medical records, patient evaluation, coordination of care, and documentation. This time includes [id number] patient evaluation, review of laboratory and imaging results, chart review, care coordination, counseling, and documentation. - Advance Directives Does patient have a Living Will: No Does patient have a Durable POA for Healthcare: No
[2025-08-06] MEDS: GABAPENTIN 100 MG CAP PO SCH (13:59)
[2025-08-06] MEDS: ENOXAPARIN 40 MG/0.4 ML SQ SCH (17:43)
[2025-08-06 20:51] LABS: Iron 17.0 ug/dL (65-175); Magnesium 2.1 mg/dL (1.6-2.4); Transferrin 148.0 mg/dL (200-360)
[2025-08-06] MEDS: DOCUSATE NA/SENNA CONC 1 TAB PO SCH (21:26)
[2025-08-07] MEDS: TBO-FILGRASTIM 480 MCG/0.8 ML SYR SQ SCH (08:44)
[2025-08-07 10:04] LABS: Absolute Lymphocytes (CBC) 1.2 K/uL (0.7-4.9); Hematocrit 35.2 % (39.6-49.0); Hemoglobin 11.2 g/dL (13.6-17.9); MCH 26.9 pg (27.0-35.0); MCHC 31.8 g/dL (32.0-36.0); MCV 84.6 fL (80-100); MPV 8.1 fL (7.6-11.3); Nucleated RBC Absolute Count 0.0 (0-0); Nucleated Red Blood Cells % 0.1 % (0-0); RBC Red Blood Cell Count 4.16 M/uL (4.33-5.43); White Blood Count 2.60 thou/uL (4.3-10.9)
[2025-08-07 10:22] LABS: Anion Gap 7.7 mEq/L (5.0-15.0); BUN Blood Urea Nitrogen 13.0 mg/dL (7-18); Glucose Level 153.0 mg/dL (74-106); Potassium 4.7 mEq/L (3.5-5.1)
[2025-08-07] MEDS: VANCOMYCIN IVPB SCH (16:24)
[2025-08-07] MEDS: NA CHLORIDE 0.9% IVPB SCH (16:24)
--- NOTE | 2025-08-08 00:54 | CON ---
History Of Present Illness: This is a known patient to me from previous admission. This is a 34-year-old male with significant past medical history of neutropenia, morbid obesity, congestive heart failure, left lower extremity wound, right-sided abdominal wound, coming in with fevers. As per patient, he has some foul smelling wound and his fever has subsided. T-max at the hospital was 100.1. Past Medical History: As per HPI. Social History: Nonsmoker, nondrinker. Family History: Noncontributory, except severe chronic acute congenital neutropenia. Medications: Cefepime and vancomycin. See MARs for other medications. Allergies: DOXYCYCLINE, SULFA DRUGS. Review of Systems: A 10-point review was performed. Physical Examination: General: This is a 34-year-old male, lying in bed, not in any acute cardiopulmonary distress. Somewhat somnolent. Vital Signs: Temperature 98, pulse 90, respirations 16, blood pressure 135/79. HEENT: Unremarkable. Neck: Supple: Lungs: Basal crackles. Heart: S1, S2. Regular. Abdomen: Soft. Bowel sounds present. Obese. Extremities: 2+ edema. Wounds noted especially involving the lower extremity area and right lower quadrant abdominal wound. Laboratory Data: Shows WBC 2.6, hemoglobin 11.2, platelets are 288. Chemistry shows BUN of 13, creatinine 1.15. Blood culture and throat cultures are pending showing no growth in 24 hours. Assessment And Plan: This is a 34-year-old male with, 1. Multiple medical problems including morbid obesity, longstanding history of neutropenia with multiple wounds of lower extremity and a large lesion to the left lower extremity and right lower quadrant abdominal area with fevers, currently getting empirically cefepime and vancomycin. 2. Chronic lower extremity wounds. 3. Congestive heart failure. 4. Morbid obesity. 5. Hypertension. 6. Obstructive sleep apnea. 7. Anemia of chronic disease. 8. Uncontrolled type 2 diabetes mellitus and hyperglycemia. Continue empiric antibiotic for 2 weeks. We will follow the patient as needed. Consider getting surgical team involved for wound care. We will follow the patient closely. Thank you for the consult. KIRBY/SRINATH Voice ID: [id number] Report ID: [id number] LUCIO
[2025-08-08] MEDS: VANCOMYCIN 1.75 GM in NA CHLORIDE 0.9% 500 ML IVPB SCH (10:00)
--- NOTE | 2025-08-08 11:37 | P.PN ---
Date of Service: 08/08/25 subjective denied problem with abx. VS stable. denied NVD objective Temp Pulse Resp BP Pulse Ox 98.4 F 89 18 178/71 H 98 08/08/25 08:00 08/08/25 08:00 08/08/25 09:33 08/08/25 08:00 08/08/25 09:33 - Physical Exam General: In no apparent distress HEENT: Atraumatic, Normocephalic Neck: Supple Respiratory: Clear to auscultation bilaterally Cardiovascular: RRR Gastrointestinal: Normal bowel sounds, NT, ND Integumentary: Venous stasis ulcer, chronic wound to LLE and RLQ wound dressing labs:2.6, hgb 11.2, bun 13, cr 1.15 assessment and planning Severe neutropenia /congenital neutropenia Chronic left leg wound Chronic right abdominal wound CHF Morbid Obesity Hypertension Obstructive sleep apnea Anemia of chronic disease Hypokalemia Uncontrolled type 2 diabetes mellitus with hyperglycemia continue empiric abx with cefepime and vancomycin for 2 weeks. appreciate surgeon input for wound care eval will continue to monitor patient as needed case discussed and in agreement with dr arroyo
[2025-08-09 05:31] LABS: Absolute Lymphocytes (CBC) 0.9 K/uL (0.7-4.9); Hematocrit 31.7 % (39.6-49.0); Hemoglobin 10.2 g/dL (13.6-17.9); MCH 27.1 pg (27.0-35.0); MCHC 32.2 g/dL (32.0-36.0); MCV 84.0 fL (80-100); MPV 8.5 fL (7.6-11.3); Nucleated RBC Absolute Count 0.0 (0-0); Nucleated Red Blood Cells % 0.4 % (0-0); RBC Red Blood Cell Count 3.77 M/uL (4.33-5.43); White Blood Count 3.30 thou/uL (4.3-10.9)
[2025-08-09 05:45] LABS: Anion Gap 5.8 mEq/L (5.0-15.0); BUN Blood Urea Nitrogen 7.0 mg/dL (7-18); Glucose Level 198.0 mg/dL (74-106); Potassium 3.8 mEq/L (3.5-5.1)
[2025-08-09 09:11] LABS: Blood Morphology Comment NOT SEEN (NOT SEEN); Differential Total Cells Count 100; Segmented Neutrophils 6 % (40-80)
--- NOTE | 2025-08-09 11:58 | P.PN ---
Date of Service: 08/09/25 subjective denied problem with abx. VS stable. denied NVD objective Temp Pulse Resp BP Pulse Ox 98.3 F 88 18 125/67 98 08/09/25 08:00 08/09/25 08:00 08/09/25 11:08 08/09/25 08:00 08/09/25 08:00 - Physical Exam General: In no apparent distress HEENT: Atraumatic, Normocephalic Neck: Supple Respiratory: Clear to auscultation bilaterally Cardiovascular: RRR Gastrointestinal: Normal bowel sounds, NT, ND Integumentary: Venous stasis ulcer, chronic wound to LLE and RLQ wound dressing labs: 3.3, hgb 10.2, bun 7, cr 0.91 assessment and planning 1/4 positive bacteremia Severe neutropenia /congenital neutropenia Chronic left leg wound Chronic right abdominal wound CHF Morbid Obesity Hypertension Obstructive sleep apnea Anemia of chronic disease Hypokalemia Uncontrolled type 2 diabetes mellitus with hyperglycemia continue empiric abx with cefepime and vancomycin for 2 weeks. 1/4 positive for blood culture. theres gram neg and gram positive hugh. repeat blood culture appreciate surgeon input for wound care eval will continue to monitor patient as needed case discussed and in agreement with dr arroyo
[2025-08-10] MEDS: TRAZODONE 50 MG TABLET PO PRN (23:23)
--- NOTE | 2025-08-11 10:51 | P.PN ---
Date of Service: 08/11/25 subjective denied problem with abx. VS stable. denied NVD objective Temp Pulse Resp BP Pulse Ox 98.4 F 98 H 18 134/67 95 08/11/25 08:00 08/11/25 08:00 08/11/25 09:47 08/11/25 08:00 08/11/25 09:47 - Physical Exam General: In no apparent distress HEENT: Atraumatic, Normocephalic Neck: Supple Respiratory: Clear to auscultation bilaterally Cardiovascular: RRR Gastrointestinal: Normal bowel sounds, NT, ND Integumentary: Venous stasis ulcer, chronic wound to LLE and RLQ wound dressing labs: 3.3, hgb 10.2, bun 7, cr 0.91 assessment and planning gram positive cocci bacteremia Severe neutropenia /congenital neutropenia Chronic left leg wound Chronic right abdominal wound CHF Morbid Obesity Hypertension Obstructive sleep apnea Anemia of chronic disease Hypokalemia Uncontrolled type 2 diabetes mellitus with hyperglycemia continue abx vancomycin for 2 weeks. dc cefepime. blood culture 08/09 growing gram positive cocci in cluster possible MRSE. repeat blood culture until neg. TTE ordered surgeon report wound looks better than before will continue to monitor patient as needed case discussed and in agreement with dr arroyo
[2025-08-12 10:32] VITALS: O2SAT 95
[2025-08-12 12:44] VITALS: BP 180/78; TEMP 98.3
[2025-08-12] MEDS ORDERED: VANCOMYCIN 1.5 GM in NA CHLORIDE 0.9% 500 ML IVPB SCH (16:00)
== END 2025-08-12 13:00 | DRG 809 ==
LOC: ER 12:22 → ERHOLD 16:44 → 4TH 17:35
PROVIDERS: ADMIT Family Medicine; ATTEND Hospitalist
DX: D70.0 Congenital agranulocytosis (principal); L03.116 Cellulitis of left lower limb; L97.819 Non-pressure chronic ulcer of other part of right lower leg with unspecified severity; Z68.42 Body mass index [BMI] 45.0-49.9, adult; L97.829 Non-pressure chronic ulcer of other part of left lower leg with unspecified severity; R78.81 Bacteremia; I11.0 Hypertensive heart disease with heart failure; I50.9 Heart failure, unspecified; D64.9 Anemia, unspecified; E66.01 Morbid (severe) obesity due to excess calories; G47.33 Obstructive sleep apnea (adult) (pediatric); E11.65 Type 2 diabetes mellitus with hyperglycemia; S81.802A Unspecified open wound, left lower leg, initial encounter; I83.018 Varicose veins of right lower extremity with ulcer other part of lower leg; B95.7 Other staphylococcus as the cause of diseases classified elsewhere; I83.028 Varicose veins of left lower extremity with ulcer other part of lower leg; R50.81 Fever presenting with conditions classified elsewhere; Z56.0 Unemployment, unspecified; Z60.2 Problems related to living alone; Z88.1 Allergy status to other antibiotic agents; Z88.8 Allergy status to other drugs, medicaments and biological substances; Z59.82 Transportation insecurity; Z11.52 Encounter for screening for COVID-19; Z59.71 Insufficient health insurance coverage; Z79.899 Other long term (current) drug therapy
CPT/HCPCS: 36415; 71045; 71260; 74177; 80048; 80202; 82607; 82947; 83540; 83605; 83735; 83880; 84466; 84484; 85025; 85610; 85730; 87040; 87070; 87205; 87428; 93005; 93306; 96361; 96374; 96375; 97116; 97161; 97165; 97530; 99285; J0692; J1171; J1447; J1650; J1815; J2003; J2270; J2405; J3373; J7040; J7050; Q9967